=== PATIENT | female | born 1950 | race Caucasian/White ===

== ENCOUNTER → 2017-10-19 16:33 | Outpatient (CLI) | payer MEDICARE, OTHER, SELFPAY ==
[2017-10-19 18:16] LABS: Basophil# 0.04 X10^3/uL; Basophil% 0.6 % (0-1); Eosinophil# 0.89 X10^3/uL; Eosinophils% 12.9 % (0-5); Hematocrit 38.5 % (37-47); Hemoglobin 12.5 g/dl (12.0-15.0); Lymphocyte % 20.3 % (19-41); Mean Corp Hgb Conc 32.5 g/gl (32-36); Mean Corpuscular Volume 92.5 fL (81-99); Monocyte# 0.59 X10^3/uL; Monocyte% 8.6 % (0-10); Neutrophil # 3.96 X10^3/uL (2.7-7.7); Neutrophil % 57.5 % (47-70); POSITIVE COUNT NO; POSITIVE DIFFERENTIAL NO; POSITIVE MORPHOLOGY NO; Platelet Count 267 K/mm3 (150-450); RBC Distribution Width CV 12.5 % (11.6-14.6); RBC Distribution Width SD 41.3 fl (35.1-43.9); Red Blood Count 4.16 M/mm3 (4.2-5.4); White Blood Count 6.9 K/mm3 (4.4-11.0)
[2017-10-19 18:41] LABS: Anion Gap 6 (5-15); BUN 22 mg/dL (7-18); BUN/Creat Ratio 22.2 RATIO (10-20); Calcium,Total 9.2 mg/dL (8.5-10.1); Chloride 103 mmol/L (98-107); Creatinine, Serum 0.99 mg/dL (0.55-1.02); EST Glomerular Filtration Rate 59 mL/min (>60); Est Glom Filt Rate - Afr Amer 72 mL/min (>60); Glucose 122 mg/dL (74-106); Potassium 3.6 mmol/L (3.5-5.1); Sodium Level 140 mmol/L (136-145); T4 Free Direct 0.89 ng/dL (0.76-1.46); Thyroid Stim Hormone (TSH) 1.77 uIU/mL (0.358-3.74)
== END ==
PROVIDERS: Family Provider Family Medicine; PCP Family Medicine; Visit Provider Family Medicine
DX: R06.00 Dyspnea, unspecified (principal); R53.83 Other fatigue
CPT/HCPCS: 36415; 80048; 84439; 84443; 85025

== ENCOUNTER → 2017-11-13 09:08 | Outpatient (CLI) | payer MEDICARE, OTHER, SELFPAY | PROVIDERS: Family Provider Family Medicine; PCP Family Medicine; Visit Provider Family Medicine | DX: R06.00 Dyspnea, unspecified (principal); I10 Essential (primary) hypertension | CPT/HCPCS: 93306 ==

== ENCOUNTER → 2018-01-03 09:00 | Outpatient (CLI) | payer MEDICARE, OTHER, SELFPAY ==
[2018-01-08 04:12] LABS: Alternaria tenuis <0.10 kU/L (Class 0); Ash, White <0.10 kU/L (Class 0); Aspergillus fumigatus <0.10 kU/L (Class 0); Bermuda Grass 0.12 kU/L (Class 0/I); Birch 0.11 kU/L (Class 0/I); Black Walnut 0.11 kU/L (Class 0/I); Cat Hair / Dander,Stand <0.10 kU/L (Class 0); Cedar, Mountain <0.10 kU/L (Class 0); Cladosporium herbarum <0.10 kU/L (Class 0); Cockroach, American <0.10 kU/L (Class 0); Cottonwood <0.10 kU/L (Class 0); D farinae Mite <0.10 kU/L (Class 0); D pteronyssinus <0.10 kU/L (Class 0); Dog Epithelia <0.10 kU/L (Class 0); Elm, American White <0.10 kU/L (Class 0); Immunoglobulin E 25 IU/mL (0-100); Maple/Box Elder <0.10 kU/L (Class 0); Mulberry, White <0.10 kU/L (Class 0); Oak, White 0.14 kU/L (Class 0/I); Pecan <0.10 kU/L (Class 0); Penicillium Notatum <0.10 kU/L (Class 0); Pigweed, Rough <0.10 kU/L (Class 0); Ragweed, Short/Common 1.18 kU/L (Class II); Russian Thistle <0.10 kU/L (Class 0); Sheep Sorrel <0.10 kU/L (Class 0); Sycamore, American <0.10 kU/L (Class 0); Timothy Grass 0.99 kU/L (Class II)
[2018-01-08 10:07] LABS: Mouse Urine <0.10 kU/L (Class 0)
== END ==
PROVIDERS: Family Provider Family Medicine; PCP Family Medicine; Visit Provider Internal Medicine Critical Care Medicine
DX: J30.9 Allergic rhinitis, unspecified (principal); R06.2 Wheezing
CPT/HCPCS: 36415; 82785; 86003

== ENCOUNTER → 2018-02-05 08:06 | Outpatient (CLI) | payer MEDICARE, OTHER, SELFPAY ==
--- NOTE | 2018-02-05 12:28 | PFT ---
INTRODUCTION: The patient is a 67-year-old female currently under the care of myself the presents for pulmonary function testing secondary to a diagnosis of allergic rhinitis. Respiratory therapy reports good patient effort. Bronchodilators were used during testing. INTERPRETATION: Forced expiration spirometry demonstrates no evidence of a large airways obstructive ventilatory defect. There is no significant response to aerosolized bronchodilators. Spirograms are of good quality and plateau normally. Body plethysmography was performed and reveals lung volumes to be within normal limits. Diffusing capacity by single breath CO is within normal limits at 79% of predicted. IMPRESSION: Grossly normal pulmonary function testing.
== END ==
PROVIDERS: Family Provider Family Medicine; PCP Family Medicine; Visit Provider Internal Medicine Critical Care Medicine
DX: J30.9 Allergic rhinitis, unspecified (principal); R06.2 Wheezing
CPT/HCPCS: 94060; 94726; 94729

== ENCOUNTER → 2018-02-21 10:10 | Outpatient (CLI) | payer MEDICARE, OTHER, SELFPAY | PROVIDERS: Family Provider Family Medicine; PCP Family Medicine; Visit Provider Family Medicine | DX: N39.0 Urinary tract infection, site not specified (principal) | CPT/HCPCS: 87086; 87088 ==

== ENCOUNTER → 2018-03-06 08:32 | Outpatient (CLI) | payer MEDICARE, OTHER, SELFPAY ==
[2018-03-06 12:49] LABS: Absolute Lymphocyte Count 1.33 X10^3/ul (0.83-4.51); Absolute Neutrophil Count 3.2 X10^3/uL (2.0-7.7); Basophil# 0.03 X10^3/uL; Basophil% 0.6 % (0-1); Eosinophil# 0.29 X10^3/uL; Eosinophils% 5.4 % (0-5); Hematocrit 38.4 % (37-47); Hemoglobin 12.3 g/dl (12.0-15.0); Lymphocyte # 1.33 X10^3/ul (4.0); Lymphocyte % 24.7 % (19-41); Mean Corpuscular Hgb 29.6 pg (27.0-32.0); Mean Corpuscular Volume 92.3 fL (81-99); Mean Platelet Vol. 10.8 fl (6.2-12.0); Monocyte# 0.53 X10^3/uL; Monocyte% 9.9 % (0-10); Neutrophil # 3.19 X10^3/uL (2.7-7.7); Neutrophil % 59.2 % (47-70); Platelet Count 238 K/mm3 (150-450); RBC Distribution Width CV 13.3 % (11.6-14.6); RBC Distribution Width SD 44.3 fl (35.1-43.9); Red Blood Count 4.16 M/mm3 (4.2-5.4); White Blood Count 5.4 K/mm3 (4.4-11.0)
[2018-03-06 12:51] LABS: Hemoglobin A1c 6.1 % (4.2-6.3)
[2018-03-06 12:53] LABS: Vitamin D,25 Hydroxy 13.4 ng/mL (29.95-100.01)
[2018-03-06 13:00] LABS: POSITIVE COUNT NO; POSITIVE DIFFERENTIAL NO; POSITIVE MORPHOLOGY NO
[2018-03-06 13:06] LABS: AST(SGOT) 28 U/L (15-37); Alanine Aminotransfer ALT/SGPT 44 U/L (13-56); Albumin, Serum 3.7 g/dL (3.2-5.0); Alkaline Phosphatase 100 U/L (45-117); Anion Gap 9 (5-15); BUN 22 mg/dL (7-18); BUN/Creat Ratio 22.9 RATIO (10-20); Calcium,Total 8.8 mg/dL (8.5-10.1); Chloride 108 mmol/L (98-107); Creatinine, Serum 0.96 mg/dL (0.55-1.02); EST Glomerular Filtration Rate 61 mL/min (>60); Est Glom Filt Rate - Afr Amer 74 mL/min (>60); Globulin 3.6 g/dL (2.2-4.2); Glucose 113 mg/dL (74-106); Potassium 3.9 mmol/L (3.5-5.1); Protein, Total 7.3 g/dL (6.4-8.2); Sodium Level 144 mmol/L (136-145); T4 Free Direct 0.95 ng/dL (0.76-1.46); Thyroid Stim Hormone (TSH) 2.05 uIU/mL (0.358-3.74)
== END ==
PROVIDERS: Family Provider Family Medicine; PCP Family Medicine; Visit Provider Family Medicine
DX: R73.01 Impaired fasting glucose (principal); E55.9 Vitamin D deficiency, unspecified; E04.2 Nontoxic multinodular goiter; I10 Essential (primary) hypertension
CPT/HCPCS: 36415; 80053; 82306; 83036; 84439; 84443; 85025

== ENCOUNTER → 2018-03-11 09:38 | Outpatient (CLI) | payer MEDICARE, OTHER, SELFPAY ==
--- NOTE | 2018-03-11 09:43 | US_ITS ---
STUDY: THYROID ULTRASOUND REASON FOR EXAM: Female, 67 years old. Nodules. TECHNIQUE: Ultrasound evaluation of the thyroid was performed with real-time and static almaraz-scale imaging. COMPARISON: August 01, 2016 FINDINGS: RIGHT LOBE: The right lobe of the thyroid gland measures 4.4 x 1.4 x 1.9 cm. There is a heterogeneous echotexture. There is a well-circumscribed hypoechoic nodule within the right lobe of the gland that allowing for differences in technique the prior examination has not significantly changed measuring 6.0 x 4.7 x 5.5 mm. LEFT LOBE: The left lobe of the thyroid gland measures 4.1 x 1.6 x 1.4 cm. There is a heterogeneous echotexture. There is a hypoechoic slightly ill-defined nodule that allowing for differences in technique since the prior examination has not significantly changed measuring 5.8 x 5.0 x 3.2 mm, this nodule was not measured on the prior examination but it is apparent on the prior study. ISTHMUS: The isthmus measures 4.0 mm . The regional lymph nodes are normal. US/Thyroid IMPRESSION: Stable heterogenous and enlarged thyroid gland associated with stable bilateral nodules. Electronically Signed: Lianne Rosales MD at 17:26 EDT Tel , Service support ,
== END ==
PROVIDERS: Family Provider Family Medicine; PCP Family Medicine; Visit Provider Family Medicine
DX: E04.2 Nontoxic multinodular goiter (principal)
CPT/HCPCS: 76536

== ENCOUNTER → 2018-07-01 15:30 | Outpatient (CLI) | payer MEDICARE, OTHER, SELFPAY ==
--- NOTE | 2018-07-01 15:32 | BI_ITS ---
MAMMOGRAPHY - BILATERAL SCREENING REASON FOR EXAM: Female, 67 years old. Routine annual screening examination. PERTINENT HISTORY: Non-contributory. TECHNIQUE: Digital bilateral breast artem (3D mammographic acquisition) in the CC and MLO projections. 2-D mediolateral oblique (MLO) and craniocaudad (CC) views of both breasts were obtained. CAD: Full Field Digital Mammography with Computer Added Detection was performed. COMPARISON: Comparison is made with prior outside examination dated September 14, 2016. FINDINGS: Breast Composition: There are scattered areas of fibroglandular density. There are no dominant masses or suspicious calcifications. No other significant abnormalities are identified. There has been no significant change since the prior study. BI/SCREENING MAMM (CAD), BILAT IMPRESSION: Stable bilateral screening mammogram. Yearly follow-up mammogram recommended. (A) ASSESSMENT CATEGORY: BIRADS Category 1: Negative. A letter regarding these results will be sent to the patient by the facility within 30 days. Approximately 10% of breast cancers are not detected by mammography. A normal mammogram should not delay biopsy of a clinically suspicious abnormality. [id number] Electronically Signed: Boogie Pascual MD at 9:19 EST Tel [phone], Service support ,
[2018-07-01 17:38] LABS: Vitamin D,25 Hydroxy 31.8 ng/mL (29.95-100.01)
== END ==
PROVIDERS: Family Provider Family Medicine; PCP Family Medicine; Referring Provider Nurse Practitioner Women's Health; Visit Provider Nurse Practitioner Women's Health
DX: Z12.31 Encounter for screening mammogram for malignant neoplasm of breast (principal); E55.9 Vitamin D deficiency, unspecified
CPT/HCPCS: 36415; 77063; 77067; 82306

== ENCOUNTER → 2018-08-30 13:36 | Outpatient (CLI) | payer MEDICARE, OTHER, SELFPAY ==
[2018-08-30 09:00] VITALS: BMI 32.6
== END ==
PROVIDERS: Family Provider Family Medicine; PCP Family Medicine; Referring Provider Obstetrics & Gynecology; Visit Provider Obstetrics & Gynecology
DX: N39.0 Urinary tract infection, site not specified (principal)
CPT/HCPCS: 87086; 87088; 87186

== ENCOUNTER → 2019-03-07 09:35 | Outpatient (CLI) | payer MEDICARE, OTHER, SELFPAY ==
[2018-08-30 09:00] VITALS: BMI 32.6
[2019-03-07 12:17] LABS: Absolute Lymphocyte Count 1.38 X10^3/uL (0.83-4.51); Absolute Neutrophil Count 3.6 X10^3/uL (2.0-7.7); Basophil# 0.04 X10^3/uL; Basophil% 0.7 % (0-1); Eosinophil# 0.28 X10^3/uL; Eosinophils% 4.8 % (0-5); Hematocrit 39.5 % (37-47); Hemoglobin 12.6 g/dL (12.0-15.0); Lymphocyte # 1.38 X10^3/ul (4.0); Lymphocyte % 23.8 % (19-41); Mean Corp Hgb Conc 31.9 g/dL (32-36); Mean Corpuscular Hgb 29.7 pg (27.0-32.0); Mean Corpuscular Volume 93.2 fL (81-99); Mean Platelet Vol. 10.6 fl (6.2-12.0); Monocyte# 0.53 X10^3/uL; Monocyte% 9.1 % (0-10); NRBC Flagged by Analyzer 0 % (0-5); Neutrophil # 3.55 X10^3/uL (2.7-7.7); Neutrophil % 61.3 % (47-70); Platelet Count 245 K/mm3 (150-450); RBC Distribution Width CV 12.8 % (11.6-14.6); RBC Distribution Width SD 43.8 fl (35.1-43.9); Red Blood Count 4.24 M/mm3 (4.2-5.4); White Blood Count 5.8 K/mm3 (4.4-11.0)
[2019-03-07 12:40] LABS: Vitamin D,25 Hydroxy 18.4 ng/mL (29.95-100.01)
[2019-03-07 12:45] LABS: AST(SGOT) 20 U/L (15-37); Alanine Aminotransfer ALT/SGPT 40 U/L (13-56); Albumin, Serum 3.7 g/dL (3.2-5.0); Alkaline Phosphatase 108 U/L (45-117); Anion Gap 4 (5-15); BUN 18 mg/dL (7-18); BUN/Creat Ratio 18.7 RATIO (10-20); Calcium,Total 9.1 mg/dL (8.5-10.1); Chloride 108 mmol/L (98-107); Creatinine, Serum 0.96 mg/dL (0.55-1.02); EST Glomerular Filtration Rate 61 mL/min (>60); Est Glom Filt Rate - Afr Amer 74 mL/min (>60); Globulin 3.8 g/dL (2.2-4.2); Glucose 111 mg/dL (74-106); Potassium 4.3 mmol/L (3.5-5.1); Protein, Total 7.5 g/dL (6.4-8.2); Sodium Level 138 mmol/L (136-145); Thyroid Stim Hormone (TSH) 2.13 uIU/mL (0.358-3.74)
== END ==
PROVIDERS: Family Provider Family Medicine; PCP Family Medicine; Visit Provider Family Medicine
DX: E04.2 Nontoxic multinodular goiter (principal); I10 Essential (primary) hypertension; E55.9 Vitamin D deficiency, unspecified
CPT/HCPCS: 36415; 80053; 82306; 84443; 85025

== ENCOUNTER → 2019-04-23 09:01 | Outpatient (CLI) | payer MEDICARE, OTHER, SELFPAY ==
[2018-08-30 09:00] VITALS: BMI 32.6
--- NOTE | 2019-04-23 09:03 | US_ITS ---
STUDY: THYROID ULTRASOUND REASON FOR EXAM: Female, 68 years old. Nodules. TECHNIQUE: Ultrasound evaluation of the thyroid was performed with real-time and static almaraz-scale imaging. COMPARISON: Thyroid ultrasound, February 09, 2018. FINDINGS: RIGHT LOBE: The right lobe of the thyroid gland measures 4.7 x 1.8 x 1.6 cm. There is a heterogeneous echotexture. There is a 0.6 x 0.5 x 0.4 cm hypoechoic nodule in the lower pole which is well-defined and wider than it is tall posteriorly in the lower lobe there is a 0.5 x 0.4 x 0.4 cm nodule which is anechoic. LEFT LOBE: The left lobe of the thyroid gland measures 4.3 x 1.4 x 1.4 cm. There is a heterogeneous echotexture. 0.8 x 0.6 x 0.4 cm well-defined hypoechoic nodule in the upper pole which is wider than it is tall. There is a 0.8 x 0.7 x 0.6 cm hypoechoic nodule posteriorly in the lower pole again wider than it is tall. ISTHMUS: The isthmus measures 0.4 cm. The regional lymph nodes are normal. US/Thyroid IMPRESSION: 1. Enlarged heterogenous thyroid. 2. Right nodules which appear stable in size. These appear to be more hypoechoic than on the previous study. 3. Slight increase in size of the upper to mid lower nodule when compared to prior study although this appears better defined. A second nodule more posteriorly was not previously seen but may represent a parathyroid gland. Electronically Signed: Collin Wheeler DO at 16:55 EDT Tel [phone], Service support ,
== END ==
PROVIDERS: Family Provider Family Medicine; PCP Family Medicine; Referring Provider Family Medicine; Visit Provider Family Medicine
DX: E04.2 Nontoxic multinodular goiter (principal)
CPT/HCPCS: 76536

== ENCOUNTER → 2019-08-11 13:40 | Outpatient (CLI) | payer MEDICARE, OTHER, SELFPAY ==
[2018-08-30 09:00] VITALS: BMI 32.6
--- NOTE | 2019-08-11 13:40 | BI_ITS ---
MAMMOGRAPHY - BILATERAL SCREENING 3-D TOMOSYNTHESIS REASON FOR EXAM: Female, 68 years old. NO FAM HX NO SX NO ISSUES -- LT MOLE MARKED PERTINENT HISTORY: No significant family history. TECHNIQUE: 2-D mammograms and 3-D Tomosynthesis of the breast (s) were performed. CAD was performed. COMPARISON: 07/01/2018 FINDINGS: The breast composition is composed of scattered fibroglandular density. Scattered benign calcifications are seen. No dense spiculated masses or suspicious microcalcifications are identified. No architectural distortion is identified. There is no skin thickening or retraction. There has been no significant change since the prior study. BI/SCREEN MAMM (CAD) W/MYLES BILAT IMPRESSION: No mammographic signs of malignancy. Routine yearly mammograms recommended. ASSESSMENT CATEGORY: BIRADS Category 1: Negative. A letter regarding these results will be sent to the patient by the facility within 30 days. FOLLOW UP RECOMMENDATION: Yearly follow up mammogram recommended. (A) Approximately 10% of breast cancers are not detected by mammography. A normal mammogram should not delay biopsy of a clinically suspicious abnormality. Electronically Signed: Chele Barron MD at 13:24 EST Tel [phone], Service support ,
== END ==
PROVIDERS: Family Provider Family Medicine; PCP Family Medicine; Referring Provider Nurse Practitioner Women's Health; Visit Provider Nurse Practitioner Women's Health
DX: Z12.31 Encounter for screening mammogram for malignant neoplasm of breast (principal)
CPT/HCPCS: 77063; 77067

== ENCOUNTER → 2020-02-03 15:55 | Outpatient (CLI) | payer MEDICARE, OTHER, SELFPAY ==
[2019-12-17 08:37] VITALS: BMI 32.2
--- NOTE | 2020-02-03 16:00 | BD_ITS ---
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 COMPARISON: Comparison is made with prior examination of May 31, 2017. FINDINGS: Lumbar Spine (L1-L4): g/cm2 (1.180) / T-score (0.1) / Z-score (1.8) Findings are suggestive of normal bone density with a low fracture risk. Left Femur Total: g/cm2 (0.855) / T-score (-1.2) / Z-score (0.3) Left Femoral Neck: g/cm2 (0.825) / T-score (-1.5) / Z-score (0.2) Right Femur Total: g/cm2 (0.897) / T-score (-0.9) / Z-score (0.6) Right Femoral Neck: g/cm2 (0.841) / T-score (-1.4) / Z-score (0.3) The T-Scores on the most recent prior examination were: Lumbar Spine (L1-L4): There has been worsening of bone density since the previous examination. Left Femur Total: which represents an improvement of 0.4%. Right Femur Total: which represents a worsening of 1%. BD/Dexa Bone Density Study IMPRESSION: The patient is considered osteopenic as outlined below according to World Miky Organization (WHO) criteria with a low fracture risk. There has been worsening of bone density since the previous examination. Reference Information: The T-score is the number of standard deviations above or below the standard which is normal for young adults at their peak bone mineral density. The World Health Organization (WHO) interprets the T-scores as follows: Above -1 Normal bone density Between -1 and -2.5 Osteopenia Equal to / or below -2.5 Osteoporosis As a practical clinical guideline, osteopenia may be graded as follows: Mild -1 through -1.5 Moderate -1.6 through -2.0 Severe -2.1 through -2.4 The Z-score is the number of standard deviations above or below age-matched controls. A Z-score of less than -1.5 would be considered abnormal. References: 1. NIH Osteoporosis and Related Bone Diseases http://www.osteo.org 2. International Society for Clinical Densitometry http://www.iscd.org 3. National Osteoporosis Foundation http://www.nof.org Electronically Signed: Boogie Pascual, at 8:56 EDT , Service support ,
== END ==
PROVIDERS: PCP Family Medicine; Referring Provider Nurse Practitioner Women's Health; Visit Provider Nurse Practitioner Women's Health
DX: Z78.0 Asymptomatic menopausal state (principal)
CPT/HCPCS: 77080

== ENCOUNTER → 2020-03-08 09:26 | Outpatient (CLI) | payer MEDICARE, OTHER, SELFPAY ==
[2019-12-17 08:37] VITALS: BMI 32.2
[2020-03-08 12:06] LABS: Absolute Lymphocyte Count 1.47 X10^3/uL (0.83-4.51); Absolute Neutrophil Count 3.9 X10^3/uL (2.0-7.7); Basophil# 0.06 X10^3/uL; Eosinophil# 0.29 X10^3/uL; Eosinophils% 4.6 % (0-5); Hematocrit 39.9 % (37-47); Hemoglobin 13.2 g/dL (12.0-15.0); Lymphocyte # 1.47 X10^3/ul (4.0); Lymphocyte % 23.6 % (19-41); Mean Corp Hgb Conc 33.1 g/dL (32-36); Mean Corpuscular Hgb 30.8 pg (27.0-32.0); Mean Corpuscular Volume 93.2 fL (81-99); Mean Platelet Vol. 10.5 fl (6.2-12.0); Monocyte# 0.53 X10^3/uL; Monocyte% 8.5 % (0-10); NRBC Flagged by Analyzer 0 % (0-5); Neutrophil # 3.88 X10^3/uL (2.7-7.7); Neutrophil % 62.1 % (47-70); Platelet Count 257 K/mm3 (150-450); RBC Distribution Width SD 43.9 fl (35.1-43.9); Red Blood Count 4.28 M/mm3 (4.2-5.4); White Blood Count 6.2 K/mm3 (4.4-11.0)
[2020-03-08 12:28] LABS: Anion Gap 5 (5-15); BUN 15 mg/dL (7-18); BUN/Creat Ratio 15.2 RATIO (10-20); Calcium,Total 9.7 mg/dL (8.5-10.1); Chloride 105 mmol/L (98-107); Creatinine, Serum 0.99 mg/dL (0.55-1.02); EST Glomerular Filtration Rate 59 mL/min (>60); Est Glom Filt Rate - Afr Amer 71 mL/min (>60); Glucose 120 mg/dL (74-106); Potassium 4.2 mmol/L (3.5-5.1); Sodium Level 138 mmol/L (136-145); Thyroid Stim Hormone (TSH) 2.45 uIU/mL (0.358-3.74)
[2020-03-09 07:26] LABS: SARS-COV-2 TOTAL ABS Nonreactive (Nonreactive)
[2020-03-10 13:47] LABS: Vitamin D,25 Hydroxy 41.1 ng/mL
== END ==
PROVIDERS: PCP Family Medicine; Visit Provider Family Medicine
DX: I10 Essential (primary) hypertension (principal); E55.9 Vitamin D deficiency, unspecified; E04.2 Nontoxic multinodular goiter; Z20.828 Contact with and (suspected) exposure to other viral communicable diseases
CPT/HCPCS: 80048; 82306; 84443; 85025; 86769; G2023

== ENCOUNTER → 2020-09-13 09:01 | Outpatient (CLI) | payer MEDICARE, SELFPAY ==
[2020-06-16 09:03] VITALS: BMI 33.8
--- NOTE | 2020-09-13 09:03 | US_ITS ---
STUDY: THYROID ULTRASOUND REASON FOR EXAM: Female, 70 years old. NODULES TECHNIQUE: Ultrasound evaluation of the thyroid was performed with real-time and static almaraz-scale imaging. COMPARISON: Comparison is made with prior study to 04/23/2019. FINDINGS: RIGHT LOBE: The right lobe of the thyroid gland measures 4.4 cm x 1.4 cm x 2.4 cm. There is a heterogeneous echotexture. There is a 6 mm x 5 mm x 5 mm hypoechoic solid nodule in the lower pole. There is also evidence of a 5 mm x 5 mm x 4 mm hypoechoic nodule in the midpole. These are unchanged. LEFT LOBE: The left lobe of the thyroid gland measures 4.6 cm x 1.4 cm x 1.8 cm. There is a heterogeneous echotexture. There is a 7 mm x 6 mm x 4 mm well-defined hypoechoic nodule in the midpole. This is unchanged. The second nodule seen on prior sonogram is not seen at this time ISTHMUS: The isthmus measures 4 mm. The regional lymph nodes are normal. US/Thyroid IMPRESSION: Stable nodules in the right lobe. Stable 7 mm x 6 mm x 4 mm hypoechoic solid nodule in the midpole of the left lobe of the thyroid. Electronically Signed: Boogie Pascual MD at 14:37 EST , Service support ,
== END ==
LOC: US 09:03
PROVIDERS: PCP Family Medicine; Referring Provider Family Medicine; Visit Provider Family Medicine
DX: E04.2 Nontoxic multinodular goiter (principal)
CPT/HCPCS: 76536

== ENCOUNTER → 2021-08-10 12:12 | Outpatient (CLI) | payer MEDICARE, SELFPAY ==
--- NOTE | 2021-08-10 12:13 | BI_ITS ---
MAMMOGRAPHY - BILATERAL SCREENING REASON FOR EXAM: Female, 70 years old. Routine annual screening examination. PERTINENT HISTORY: Sister with breast cancer. TECHNIQUE: Digital bilateral breast myles (3D mammographic acquisition) in the CC and MLO projections. 2-D mediolateral oblique (MLO) and craniocaudad (CC) views of both breasts were obtained. CAD: Full Field Digital Mammography with Computer Added Detection was performed. COMPARISON: Comparison is made with prior study dated 05/12/2019 and 07/01/2018. FINDINGS: Breast Composition: There are scattered areas of fibroglandular density. There are no dominant masses or suspicious calcifications. No other significant abnormalities are identified. There has been no significant change since the prior study. BI/SCRN MAMM (CAD)W/MYLES BILAT IMPRESSION: Stable bilateral screening mammogram. Yearly follow-up mammogram recommended. (A) ASSESSMENT CATEGORY: BIRADS Category 1: Negative. A letter regarding these results will be sent to the patient by the facility within 30 days. Approximately 10% of breast cancers are not detected by mammography. A normal mammogram should not delay biopsy of a clinically suspicious abnormality. [id number] Electronically Signed: Boogie Pascual MD at 13:10 EST , Service support ,
== END ==
PROVIDERS: PCP Family Medicine; Visit Provider Nurse Practitioner Women's Health
DX: Z12.31 Encounter for screening mammogram for malignant neoplasm of breast (principal)
CPT/HCPCS: 77063; 77067

== ENCOUNTER → 2022-01-09 | Outpatient (CLI) | payer MEDICARE, SELFPAY ==
[2022-01-09 15:51] LABS: Anion Gap 5 (5-15); BUN 19 mg/dL (7-18); BUN/Creat Ratio 17.8 RATIO (10-20); Calcium,Total 9.9 mg/dL (8.5-10.1); Chloride 104 mmol/L (98-107); Creatinine, Serum 1.07 mg/dL (0.55-1.02); EST Glomerular Filtration Rate 54 mL/min (>60); Est Glom Filt Rate - Afr Amer 65 mL/min (>60); Glucose 113 mg/dL (74-106); Magnesium 2.3 mg/dL (1.6-2.6); Potassium 4.4 mmol/L (3.5-5.1); Sodium Level 139 mmol/L (136-145)
== END | disposition home or self-care (01) ==
LOC: MTLAB 14:03
PROVIDERS: PCP Family Medicine; Referring Provider Family Medicine; Visit Provider Family Medicine
DX: R25.2 Cramp and spasm (principal)
CPT/HCPCS: 36415; 80048; 83735

== ENCOUNTER 2022-10-05 14:00 | Outpatient (RCR) | payer MEDICARE, SELFPAY ==
--- NOTE | 2022-09-07 08:05 | HP.OTEVAL ---
Patient's Visit Information FELIPE BASURTO is a 72 year old F, referred to Occupational Therapy by Dr. Kaleb Astorga MD, with a diagnosis of CVA. Date of Evaluation: 09/06/22 Occupational Therapist: RASHID Shelton/Melanie, CHT - Subjective This 72 year old female seen for OT eval with dx of CVA, pt states was her stroke. pt [facility] pt than had 2 weeks of home therapy. pt states she continues to struggle with use of left UE. 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 pt has assist with ADLs. ambulating with quad cane when out and about but at home no device. pt using shower chair at home. pt would like return use of her left hand to increase ind. with ADLs and IADLs. - ADLs Dressing: Button shirt Fasteners: Buttons, Zippers, Snaps, [place] Eating: Cut food Bathing: Handle washcloth & soap, Wash hair Toileting: Manage clothing Grooming: Squeeze toothpaste on Kitchen: Open jars Miscellaneous: Open medication bottle, Handle money (change), Use computer keyboard Comments: pt lives with - dtr and two grandchildren. Pt stays on main living area. two entry steps. pt has resting hand brace for night but pt states it is heavy and makes her hand painful - ROM Shoulder: right WNL left Elbow: right WNL left -10/130 Forearm: right WNL left supination 55 pronation WNL Wrist: right WNL left 0/50 ROM Comments: pt demo minimal wrist ext due to tightness of FCU. pt demo initiation of finger flexion. - Strength Shoulder: right 5/5 left 3/5 Elbow: right 5/5 left 3/5 Forearm: right 5/5 left 3-/5 Wrist: right 5/5 left 3-/5 Regional Facilities Specialist: right 55# left unable Lateral Pinch: right 4# left unable Tripod Pinch: right 10# left unable - Sensation Sensation Comments: denies. tip of thumb a little numb - Movement Muscle Tone: left forearm/wrist mod tone Movement Comments: pt demo with flexed wrist posture with ambulation - In-Hand Manipulation Finger to Palm Translation: Normal - Right, Unable - Left Palm to Finger Translation: Normal - Right, Unable - Left - Stroke Specific Quality of Life Total SS-QOL Score: 125 - Quick DASH-Disab of Arm,Shoulder& Hand Quick DASH Score: 66.6650 - Goals Goal:: Pt will demo a increase in left UE strength to lift 10# Items from knee, waist and shoulder levels to simulate kitchen tasks by d/c. 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 with ADLs by d.c. pt will demo full wrist and digits ROM equal to unaffected side to increase pts ind. with typing by d/c Goal:: pt will demo a increase in FMS demo by ability to type two sentences with no more than 2 errors by in 8 weeks. Goal:: pt will report the ability to tie shoes, zip coat IND using bilateral hands to perform tasks by d/c - Rehabilitation General Assessment: pt demo with left UE weakness and limited ROM and increase abnormal flexion tone limiting pts ind with ADLS and IADLs. pt would benefit from skilled OT services 1-2x week for 8 weeks to increase pts recovery. Today therapist review a AAROM for left UE as well AROM. Rehabilitation Potential: Good - Anticipated Interventions A/AAROM/PROM, Strengthening, Orthoses, Ergonomic Education, Fine Motor Coord/Vadim, Neuro Reeducation, Education re assistive Equipment, Education re Diagnosis, Caregiver Training, Home Program - Visit Plan Frequency: 1-2x /Week Duration: 2 Months TEXT: Thank you for the opportunity to evaluate your patient. For Medicare and Medicare HMO plans, please review the plan of care and approve it. It will need to be FAXED BACK to us at [phone] for Medicare purposes. Please let me know if there are questions or concerns regarding this plan of care. Physician Signature: Date:
--- NOTE | 2022-10-05 17:56 | HP.PTEVAL ---
Patient's Visit Information FELIPE BASURTO is a 72 year old F referred to Physical Therapy by Dr. Kaleb Astorga MD with a diagnosis of LEFT SHOULDER PAIN ,CVA INTERCRANIABLE HEMMORAGE. 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 PT INTERVTIONS PROM/AAROM/AROM ,GRADED STRENGTHENING RTC /SCAPULAR , AND MANUAL THERAPY GR 2-3 MOBS - Subjective This 72 y/o female physical therapy with left shoulder pain and CVA . Patient patient had CVA 2021 woke up middle night developed left side weakness /balance and fascial drop . Patient [facility] transferred to [facility]. Patient had MRI and CTSCAN intracerebral hemorrhage. Patient had elevated HTN. Patient was hospitalized ~ 2weeks then transferred to [facility] 25 days . Then had [facility] PT/OT. Patient has been in OT for hand and elbow. 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 Patient uses [email or web address] for long distance community and inside no cane. Patient is I with ADLS doing some cooking daughter does housework and cleaning. Patient denies paresthesia/tingling. Patient pain affects ADLS with left UE and self hygiene. Patient symptoms affects sleeping. Patient goals to improve function with less pain. SOCAIL: . 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 . - Pain Left Shoulder Pain Intensity (Out of 10): 5 Pain Intensity Range: 10 - Objective POSTURE: rounded shoulders. NEURO: hypertonicity left C5-6-7 1. PALPATION: tender AC. AROM: shoulder flexion 95 degrees ,80 degrees. PROM: shoulder flexion 130 degrees ,abduction 135 degrees ,ER 50 degrees. CAPSULAR RESTRICTION: mod tight G-H joint. SCAPULAR/HUMERAL FUNCTION: less than 1:1. MMT: ( peak force) deltoid 8.5,infraspinatous 8.9 ,subscapularis 9.5 - Special Tests L Shoulder Neer - Impingement: Positive L Shoulder [address] - Impingement: Positive L Shoulder Shrug Sign - OA/Adhesive Capsulitis: Positive - Balance/Special Test Scores Quick DASH Score: 45.4525 - Goals Goal 1:: Patient to be seen for PT for ROM and strengthening Goal Time Frame: 4-6 Weeks Goal 2:: Patient to demonstrate 50% improvement with increase function and decrease pain. Goal Time Frame: 4-6 Weeks Goal 3:: Patient to improve AROM shoulder flexion ,abduction and ER by 10 degrees to improve function Goal Time Frame: 4-6 Weeks Goal 4:: Patient to improve peak force deltoid /RTC by deltoid 5 points to improve function Goal Time Frame: 4-6 Weeks Goal 5:: Patient to improve quick dash 5 points to improve improve function Goal Time Frame: 4-6 Weeks - Rehabilitation Potential Physical Therapy Diagnosis: Patient has left shoulder pain with capsular mod tightness with decrease ROM ,strength from hemiplegia shoulder with increase tonicity thus benefit from skilled PT Rehabilitation Potential: Good - Anticipated Interventions Patient/Client Instruction: Educate patient on: Condition, Plan of Care For the Purpose of:: To decrease pain, To increase ROM, To improve muscle performance and motor function, To improve ability to perform ADL's, To increase tolerance to activity/condition/position, To improve performance and independence with ADL's, To improve ability of physical actions for home/community/work/leisure, To improve health of tissue, To decrease soft tissue restriction, To increase flexibility/ROM Therapeutic Exercise to Include: Strength training, Body mechanics, Postural training, Flexibilty training, Passive ROM, Active ROM For the Purpose of:: To decrease pain, To increase ROM, To improve nutrient delivery to tissue, To increase oxygenation perfusion, To improve health of tissue, To increase flexibility/ROM, To improve endurance, To improve tolerance to ADL's Manual Therapy Techniques to Include: Mobilization, Passive ROM Comment: G-H For the Purpose of:: To decrease pain, To increase ROM, To improve nutrient delivery to tissue, To increase oxygenation perfusion, To improve health of tissue, To decrease soft tissue restriction TENS: Yes IF ES: Yes Cryotherapy (ice pack, ice massage): Yes Thermo therapy (hot pack): Yes Ultrasound (thermal/non thermal): Yes For the Purpose of:: To decrease pain, To increase ROM, To improve nutrient delivery to tissue, To increase oxygenation perfusion, To improve health of tissue, To decrease soft tissue restriction Thank you for the opportunity to evaluate your patient. For Medicare and Medicare HMO plans, please review the plan of care and approve it. It will need to be FAXED BACK to us at [phone] for Medicare purposes. For Medicare only, by signing this I certify the plan of care. Please let me know if there are questions or concerns regarding this plan of care. Physician Signature: Date:
--- NOTE | 2022-12-28 10:48 | HP.PTDCNRP_ITS ---
FELIPE BASURTO was seen in my office for initial evaluation on 10/05/22. The following Plan of Care was established for this patient: Initial Frequency: 2x /Week Initial Duration: 4 Weeks Patient/Client Instruction: Educate patient on: Condition, Plan of Care For the Purpose of:: To decrease pain, To increase ROM, To improve muscle performance and motor function, To improve ability to perform ADL's, To increase tolerance to activity/condition/position, To improve performance and independence with ADL's, To improve ability of physical actions for home/community/work/leisure, To improve health of tissue, To decrease soft tissue restriction, To increase flexibility/ROM Therapeutic Exercise to Include: Strength training, Body mechanics, Postural training, Flexibilty training, Passive ROM, Active ROM For the Purpose of:: To decrease pain, To increase ROM, To improve nutrient delivery to tissue, To increase oxygenation perfusion, To improve health of tissue, To increase flexibility/ROM, To improve endurance, To improve tolerance to ADL's Manual Therapy Techniques to Include: Mobilization, Passive ROM Comment: G-H For the Purpose of:: To decrease pain, To increase ROM, To improve nutrient delivery to tissue, To increase oxygenation perfusion, To improve health of tissue, To decrease soft tissue restriction TENS: Yes IF ES: Yes Cryotherapy (ice pack, ice massage): Yes Thermo therapy (hot pack): Yes Ultrasound (thermal/non thermal): Yes For the Purpose of:: To decrease pain, To increase ROM, To improve nutrient delivery to tissue, To increase oxygenation perfusion, To improve health of ti ssue, To decrease soft tissue restriction This patient was last seen in our office . Pertinent comments regarding their Physical therapy will appear below: Patient seen for PT for Evaluation thus is d/c At this point I will be discontinuing this patient from physical therapy. I would be happy to see this patient again in the future if found appropriate by the physician. Thank you! Bryan Fletcher, PT, Cert MDT, OCS Balance/Gait/Functional tests - Balance/Special Test Scores Quick DASH Score: 45.4553
== END 2022-10-05 19:00 | disposition home or self-care (01) ==
LOC: PT 14:00
PROVIDERS: PCP Family Medicine; Referring Provider Family Medicine; Visit Provider Family Medicine
DX: I61.9 Nontraumatic intracerebral hemorrhage, unspecified (principal)
CPT/HCPCS: 97110; 97112; 97140; 97162; 97166; 97530

== ENCOUNTER → 2022-10-09 | Outpatient (CLI) | payer MEDICARE, SELFPAY ==
[2022-10-09 12:29] LABS: Absolute Lymphocyte Count 1.68 X10^3/uL (0.83-4.51); Absolute Neutrophil Count 3.8 X10^3/uL (2.0-7.7); Basophil# 0.06 X10^3/uL; Basophil% 0.9 % (0-1); Eosinophil# 0.26 X10^3/uL; Eosinophils% 4.1 % (0-5); Hematocrit 41.1 % (37-47); Lymphocyte # 1.68 X10^3/ul (0.83-4.51); Lymphocyte % 26.6 % (19-41); Mean Corp Hgb Conc 31.6 g/dL (32-36); Mean Corpuscular Volume 94.9 fL (81-99); Mean Platelet Vol. 10.8 fl (6.2-12.0); Monocyte# 0.53 X10^3/uL; Monocyte% 8.4 % (0-10); NRBC Flagged by Analyzer 0 % (0-5); Neutrophil # 3.78 X10^3/uL (2.7-7.7); Neutrophil % 59.8 % (47-70); Platelet Count 289 K/mm3 (150-450); RBC Distribution Width CV 12.6 % (11.6-14.6); RBC Distribution Width SD 44.5 fl (35.1-43.9); Red Blood Count 4.33 M/mm3 (4.2-5.4); White Blood Count 6.3 K/mm3 (4.4-11.0)
[2022-10-09 12:45] LABS: Vitamin D,25 Hydroxy 62.3 ng/mL
[2022-10-09 12:46] LABS: Hemoglobin A1c 6.3 % (3.8-5.6)
[2022-10-09 12:52] LABS: AST(SGOT) 64 U/L (15-37); Alanine Aminotransfer ALT/SGPT 109 U/L (13-56); Albumin, Serum 3.8 g/dL (3.2-5.0); Alkaline Phosphatase 231 U/L (45-117); Anion Gap 6 (5-15); BUN 15 mg/dL (7-18); BUN/Creat Ratio 17.5 RATIO (10-20); Calcium,Total 10.2 mg/dL (8.5-10.1); Chloride 102 mmol/L (98-107); Cholesterol 116 mg/dL (200); Creatinine, Serum 0.86 mg/dL (0.55-1.02); EST Glomerular Filtration Rate 69 mL/min (>60); Est Glom Filt Rate - Afr Amer 84 mL/min (>60); Globulin 3.9 g/dL (2.2-4.2); Glucose 123 mg/dL (74-106); High Density Lipoprotein 56 mg/dL; Potassium 4.7 mmol/L (3.5-5.1); Protein, Total 7.7 g/dL (6.4-8.2); Sodium Level 139 mmol/L (136-145); Triglycerides 85 mg/dL; Very Low Density Lipoprotein 17 mg/dL (5-40)
== END | disposition home or self-care (01) ==
LOC: BIMLAB 10:00
PROVIDERS: PCP Internal Medicine; Referring Provider Internal Medicine; Visit Provider Internal Medicine
DX: I63.81 Other cerebral infarction due to occlusion or stenosis of small artery (principal); R73.03 Prediabetes; E55.9 Vitamin D deficiency, unspecified
CPT/HCPCS: 36415; 80053; 80061; 82306; 83036; 85025

== ENCOUNTER → 2022-10-25 | Outpatient (CLI) | payer MEDICARE, SELFPAY ==
[2022-10-25 17:30] LABS: AST(SGOT) 34 U/L (15-37); Alanine Aminotransfer ALT/SGPT 50 U/L (13-56); Albumin, Serum 3.8 g/dL (3.2-5.0); Alkaline Phosphatase 169 U/L (45-117); Anion Gap 5 (5-15); BUN 19 mg/dL (7-18); Calcium,Total 9.8 mg/dL (8.5-10.1); Chloride 104 mmol/L (98-107); Creatinine, Serum 0.86 mg/dL (0.55-1.02); EST Glomerular Filtration Rate 69 mL/min (>60); Est Glom Filt Rate - Afr Amer 83 mL/min (>60); Globulin 3.7 g/dL (2.2-4.2); Glucose 105 mg/dL (74-106); Potassium 3.8 mmol/L (3.5-5.1); Protein, Total 7.5 g/dL (6.4-8.2); Sodium Level 139 mmol/L (136-145)
== END | disposition home or self-care (01) ==
LOC: LAB 15:55
PROVIDERS: PCP Internal Medicine; Visit Provider Internal Medicine
DX: R74.8 Abnormal levels of other serum enzymes (principal)
CPT/HCPCS: 36415; 80053

== ENCOUNTER → 2023-02-06 | Outpatient (CLI) | payer MEDICARE, SELFPAY ==
--- NOTE | 2023-02-06 15:16 | BD_ITS ---
STUDY: DUAL ENERGY X-RAY ABSORPTIOMETRY / DXA REASON FOR EXAM: Female, 72 years old. Osteopenia follow up TECHNIQUE: Bone Mineral Density (BMD) measurements of lumbar spine and bilateral hips were obtained. COMPARISON: Comparison is made with prior study dated February 03, 2020. FINDINGS: Lumbar Spine (L1-L4): g/cm2 (1.033) / T-score (0.1) / Z-score (2.4) Findings are suggestive of normal bone density with a low fracture risk. Left Femur Total: g/cm2 (0.822) / T-score (-1.0) / Z-score (0.7) Left Femoral Neck: g/cm2 (0.604) / T-score (-2.2) / Z-score (-0.2) Right Femur Total: g/cm2 (0.804) / T-score (-1.1) / Z-score (0.6) Right Femoral Neck: g/cm2 (0.685) / T-score (-1.5) / Z-score (0.5) The T-Scores on the most recent prior examination were: Lumbar Spine (L1-L4): There has been worsening of bone density since the previous examination. Left Femur Total: which represents an improvement of 3.6%. Right Femur Total: which represents a worsening of 3.6%. BD/Dexa Bone Density Study IMPRESSION: The patient is considered osteopenic as outlined below according to World Miky Organization (WHO) criteria with a high fracture risk. There has been worsening of bone density since the previous examination. Reference Information: The T-score is the number of standard deviations above or below the standard which is normal for young adults at their peak bone mineral density. The World Health Organization (WHO) interprets the T-scores as follows: Above -1 Normal bone density Between -1 and -2.5 Osteopenia Equal to / or below -2.5 Osteoporosis As a practical clinical guideline, osteopenia may be graded as follows: Mild -1 through -1.5 Moderate -1.6 through -2.0 Severe -2.1 through -2.4 The Z-score is the number of standard deviations above or below age-matched controls. A Z-score of less than -1.5 would be considered abnormal. References: 1. NIH Osteoporosis and Related Bone Diseases www osteo.org 2. International Society for Clinical Densitometry www iscd.org 3. National Osteoporosis Foundation www nof.org Electronically Signed: Boogie Pascual MD at 12:55 EDT ,
--- NOTE | 2023-02-28 13:19 | HP.PT.NRP ---
Patient Information Patient Information: FELIPE BASURTO was seen in my office for initial evaluation on . The following Plan of Care was established for this patient: Last Seen Last Seen: This patient was last seen in our office . Pertinent comments regarding their Physical therapy will appear below: At this point I will be discontinuing this patient from physical therapy. I would be happy to see this patient again in the future if found appropriate by the physician. Thank you! Bryan Fletchre, PT, Cert MDT, OCS
== END | disposition home or self-care (01) ==
LOC: OPBD 15:04
PROVIDERS: PCP Internal Medicine; Referring Provider Internal Medicine; Visit Provider Internal Medicine
DX: Z78.0 Asymptomatic menopausal state (principal)
CPT/HCPCS: 77080

== ENCOUNTER → 2023-06-27 | Outpatient (CLI) | payer MEDICARE, SELFPAY ==
[2023-06-27 16:17] LABS: Cytology, Body Fluid / CSF SEE PATHOLOGY REPORT
--- NOTE | 2023-06-28 | CYSPIN_PTH ---
PATIENT: FELIPE BASURTO LOC: [facility] U#:[id number] AGE/SX: 72/F ROOM: RE06/27/[address]: Dr. Carola Mckeon MD : 1950 BED: DIS: 06/27/2023 SPEC #: [id number] RECD: 06/28/23 07:39 STATUS: SANDRA REJohnathan #: [id number] JUDI: 06/28/23 00:[address]: Carola Mckeon DEPT: CYTOLOGY RECD BY: Velia Rolon ENTERED: 06/28/23 07:42 SP TYPE: CYSPIN FL OTHR DR: Dr. Annette Bravo MD Tissues: Urine Procedures: Pap Stain (control) Special Stain Group II Cytospin Fluid HEADER OPERATION: Not noted PRE-OP DIAGNOSIS: Not noted TISSUE SUBMITTED: Urine DIAGNOSIS CYTOLOGY Urine for cytology (cytospin): Negative for high grade urothelial carcinoma ([facility]). Maria system II SJ: 06/28/2023 COMMENT Correlation with clinical findings and appropriate follow up are necessary. The Maria System for urine cytology diagnostic categorization was used in the evaluation of this case. CYTOLOGY STUDY Slides are reviewed. CYTOLOGY GROSS Received is 5 ml of dark yellow cloudy fluid labeled with the patient's name and and designated per the requisition as urine. Submitted for cytology preparation. TC: 4 CPT: 23201
== END | disposition home or self-care (01) ==
PROVIDERS: PCP Internal Medicine; Visit Provider Urology
DX: R31.0 Gross hematuria (principal)
CPT/HCPCS: 88108; 88313

== ENCOUNTER → 2023-09-27 | Outpatient (CLI) | payer MEDICARE, SELFPAY | END | disposition home or self-care (01) | LOC: LABSPEC 14:33 | PROVIDERS: PCP Internal Medicine; Visit Provider Internal Medicine | DX: R05.9 Cough, unspecified (principal) | CPT/HCPCS: 87502 ==

== ENCOUNTER → 2023-11-07 | Outpatient (CLI) | payer MEDICARE, SELFPAY ==
[2023-11-07 12:26] LABS: Absolute Lymphocyte Count 1.92 X10^3/uL (0.83-4.51); Absolute Neutrophil Count 3.6 X10^3/uL (2.0-7.7); Basophil# 0.04 X10^3/uL; Basophil% 0.6 % (0-1); Eosinophil# 0.19 X10^3/uL; Eosinophils% 3.1 % (0-5); Hemoglobin 12.7 g/dL (12.0-15.0); Lymphocyte # 1.92 X10^3/ul (0.83-4.51); Lymphocyte % 30.9 % (19-41); Mean Corp Hgb Conc 31.8 g/dL (32-36); Mean Corpuscular Hgb 29.6 pg (27.0-32.0); Mean Corpuscular Volume 93.2 fL (81-99); Mean Platelet Vol. 10.2 fl (6.2-12.0); Monocyte# 0.46 X10^3/uL; Monocyte% 7.4 % (0-10); NRBC Flagged by Analyzer 0 % (0-5); Neutrophil # 3.58 X10^3/uL (2.7-7.7); Neutrophil % 57.7 % (47-70); Platelet Count 298 K/mm3 (150-450); RBC Distribution Width CV 12.9 % (11.6-14.6); RBC Distribution Width SD 43.2 fl (35.1-43.9); Red Blood Count 4.29 M/mm3 (4.2-5.4); White Blood Count 6.2 K/mm3 (4.4-11.0)
[2023-11-07 13:18] LABS: AST(SGOT) 20 U/L (15-37); Alanine Aminotransfer ALT/SGPT 21 U/L (13-56); Albumin, Serum 3.6 g/dL (3.2-5.0); Alkaline Phosphatase 91 U/L (45-117); Anion Gap 6 (5-15); BUN 18 mg/dL (7-18); BUN/Creat Ratio 19.6 RATIO (10-20); Calcium,Total 9.6 mg/dL (8.5-10.1); Chloride 107 mmol/L (98-107); Cholesterol 185 mg/dL (200); Creatinine, Serum 0.92 mg/dL (0.55-1.02); EST Glomerular Filtration Rate 64 mL/min (>60); Est Glom Filt Rate - Afr Amer 77 mL/min (>60); Globulin 3.7 g/dL (2.2-4.2); Glucose 107 mg/dL (74-106); High Density Lipoprotein 54 mg/dL; Potassium 4.6 mmol/L (3.5-5.1); Protein, Total 7.3 g/dL (6.4-8.2); Sodium Level 140 mmol/L (136-145); Thyroid Stim Hormone (TSH) 1.72 uIU/mL (0.358-3.74); Triglycerides 91 mg/dL; Very Low Density Lipoprotein 18 mg/dL (5-40)
[2023-11-07 13:23] LABS: Vitamin D,25 Hydroxy 44.4 ng/mL
== END | disposition home or self-care (01) ==
LOC: BIMLAB 10:04
PROVIDERS: PCP Internal Medicine; Referring Provider Physician Assistant; Visit Provider Physician Assistant
DX: E55.9 Vitamin D deficiency, unspecified (principal); I10 Essential (primary) hypertension; E04.1 Nontoxic single thyroid nodule; E78.5 Hyperlipidemia, unspecified
CPT/HCPCS: 36415; 80053; 80061; 82306; 84443; 85025

== ENCOUNTER → 2024-02-04 | Outpatient (CLI) | payer MEDICARE, SELFPAY ==
--- NOTE | 2024-02-04 14:35 | US_ITS ---
STUDY: THYROID ULTRASOUND REASON FOR EXAM: Female, 73 years old. History of thyroid nodules. TECHNIQUE: Ultrasound evaluation of the thyroid was performed with real-time and static almaraz-scale imaging. COMPARISON: Comparison is made with prior sonogram dated September 13, 2020. FINDINGS: RIGHT LOBE: The right lobe of the thyroid gland measures 4.7 cm x 1.3 cm x 1.8 cm. There is a heterogeneous echotexture. Stable 6 mm x 4 mm x 4 mm hypoechoic solid nodule in the superior pole. Stable 4 mm x 3 mm x 4 mm solid and cystic nodule in the inferior pole. LEFT LOBE: The left lobe of the thyroid gland measures 4.5 cm x 1.1 cm x 1.7 cm. There is a heterogeneous echotexture. There is a 9 mm x 5 mm x 7 mm hypoechoic solid nodule in the superior pole. There is also evidence of a 1 cm x 0.7 cm x 0.8 cm solid and cystic nodule in the inferior pole of the left lobe. ISTHMUS: The isthmus measures 3.5 mm. The regional lymph nodes are normal. US/Thyroid IMPRESSION: Stable examination. Yearly follow-up recommended. Electronically Signed: Boogie Pascual MD at 10:42 EDT ,
== END | disposition home or self-care (01) ==
PROVIDERS: PCP Internal Medicine; Referring Provider Internal Medicine; Visit Provider Internal Medicine
DX: E04.2 Nontoxic multinodular goiter (principal)
CPT/HCPCS: 76536

== ENCOUNTER → 2024-02-20 | Outpatient (CLI) | payer MEDICARE, SELFPAY ==
[2024-02-20 15:41] LABS: Magnesium 2.3 mg/dL (1.6-2.6)
[2024-02-20 15:55] LABS: Hemoglobin A1c 5.8 % (3.8-5.6)
[2024-02-21 14:57] LABS: Vitamin B12 233 pg/mL (211-911)
== END | disposition home or self-care (01) ==
LOC: BIMLAB 13:26
PROVIDERS: PCP Internal Medicine; Referring Provider Internal Medicine; Visit Provider Internal Medicine
DX: R53.83 Other fatigue (principal); R73.03 Prediabetes; I10 Essential (primary) hypertension
CPT/HCPCS: 36415; 82607; 83036; 83735

== ENCOUNTER → 2024-06-09 | Outpatient (CLI) | payer MEDICARE, SELFPAY ==
--- NOTE | 2024-06-09 10:06 | RAD_ITS ---
STUDY: X-RAY CHEST REASON FOR EXAM: Female, 73 years old. Shortness of breath and cough TECHNIQUE: PA and lateral views of the chest. COMPARISON: None. FINDINGS: The lungs are clear and expanded. There is no demonstrated pleural abnormality. Normal size heart. Normal mediastinum and angel. Normal visualized pulmonary arteries. Normal visualized aortic arch and descending thoracic aorta. Normal visualized thoracic spine. Normal visualized ribs, clavicles, and shoulders. There is no demonstrated abnormality of the visualized soft tissue structures of the upper abdomen. RAD/Chest PA and Lateral IMPRESSION: Normal x-ray examination of the chest. Electronically Signed: Murali Hassan MD at 10:48 EDT ,
== END | disposition home or self-care (01) ==
PROVIDERS: PCP Internal Medicine; Referring Provider Physician Assistant; Visit Provider Physician Assistant
DX: R06.2 Wheezing (principal)
CPT/HCPCS: 71046

== ENCOUNTER → 2024-08-08 | Outpatient (CLI) | payer MEDICARE, SELFPAY ==
--- NOTE | 2024-08-08 12:53 | ECHOD_ITS ---
Reason For Study: MURMUR Procedure This was a 2D Doppler, Color Flow transthoracic echocardiogram. The study was technically difficult. Exam performed in department. Left Ventricle Normal LV size. Left ventricular systolic function is normal. The left ventricular ejection fraction is 65 %. No regional wall motion abnormalities noted. Right Ventricle Normal RV size. Normal systolic function. Atria Normal left atrium. Normal right atrium. Mitral Valve Normal mitral valve. Tricuspid Valve Normal tricuspid valve. Mild tricuspid valve insufficiency. Pulmonary artery systolic pressure is 30 mmHg. Aortic Valve Trisinus/trileaflet aortic valve. Pulmonic Valve Normal pulmonic valve. Great Vessels Normal aortic root. The pulmonary artery is normal size. Normal inferior vena cava. Pericardium/Pleural No pericardial effusion. MMode/2D Measurements & Calculations LVIDd: 3.6 cm IVSd: 1.1 cm LVOT diam: 1.8 cm LVIDs: 1.8 cm LVPWd: 0.95 cm LVOT area: 2.6 cm2 RVDd: 3.2 cm FS: 50.6 % asc Aorta Diam: 3.1 cm LAV(MOD-bp): 52.4 ml LVAd ap4: 16.1 cm2 LAV(MOD-bp) Indexed: 28.3 ml/m2 LVLd ap4: 6.6 cm LAV(MOD-sp2): 55.3 ml EDV(MOD-sp4): 34.6 ml LAV(MOD-sp4): 50.5 ml EDV(sp4-el): 33.2 ml LVAs ap4: 8.6 cm2 LVLs ap4: 5.5 cm ESV(MOD-sp4): 12.5 ml ESV(sp4-el): 11.4 ml EF(MOD-sp4): 63.7 % EF(sp4-el): 65.5 % LVAd ap2: 16.1 cm2 SV(MOD-sp4): 22.0 ml SV(MOD-sp2): 25.1 ml LVLd ap2: 6.7 cm SI(MOD-sp4): 11.9 ml/m2 SI(MOD-sp2): 13.6 ml/m2 EDV(MOD-sp2): 33.1 ml EDV(sp2-el): 33.0 ml LVAs ap2: 6.4 cm2 LVLs ap2: 4.9 cm ESV(MOD-sp2): 8.0 ml ESV(sp2-el): 7.2 ml EF(MOD-sp2): 75.8 % SV(sp4-el): 21.7 ml Ao sinus diam: 2.[address] Junction: 2.3 cm LA dimension(2D): 3.5 cm LA A4 area: 18.1 cm2 RA A4 area: 11.0 cm2 TAPSE: 2.2 cm Time Measurements MV dec time: 0.25 sec Doppler Measurements & Calculations MV E max abhishek: 88.9 cm/sec Lat Peak E' Abhishek: 8.9 cm/sec Med Peak E' Abhishek: 6.7 cm/sec MV A max abhishek: 113.4 cm/sec E/E' lat: 9.9 E/E' med: 13.3 MV E/A: 0.78 MV dec slope: 356.5 cm/sec2 Ao V2 max: 180.9 cm/sec LV V1 max: 160.6 cm/sec Ao max P.1 mmHg LV V1 max P.3 mmHg Ao V2 mean: 138.3 cm/sec LV V1 mean P.0 mmHg Ao mean P.2 mmHg LV V1 mean: 128.1 cm/sec Ao V2 VTI: 44.6 cm LV V1 VTI: 38.8 cm AV (velocity ratio): 0.87 BRITANY(I,D): 2.3 cm2 BRITANY(V,D): 2.3 cm2 SV(LVOT): 101.4 ml PA V2 max: 101.6 cm/sec TR max abhishek: 262.7 cm/sec TR max P.6 mmHg ECHO/Echo Complete Interpretation Summary Normal LV size. Left ventricular systolic function is normal. The left ventricular ejection fraction is 65 %. Pulmonary artery systolic pressure is 30 mmHg. Ordering Physician: Annette Bravo Referring Physician: Annette Bravo Performed By: Syeda Deleon RDCS
== END | disposition home or self-care (01) ==
LOC: CVS 12:49
PROVIDERS: PCP Internal Medicine; Referring Provider Internal Medicine; Visit Provider Internal Medicine
DX: R01.1 Cardiac murmur, unspecified (principal)
CPT/HCPCS: 93306; 94060; 94726; 94729

== ENCOUNTER → 2024-09-03 | Outpatient (CLI) | payer MEDICARE, SELFPAY ==
--- NOTE | 2024-09-03 10:38 | BI_ITS ---
MAMMOGRAPHY - BILATERAL SCREENING REASON FOR EXAM: Female, 74 years old. Routine annual screening examination. PERTINENT HISTORY: Sister with breast cancer. TECHNIQUE: Digital bilateral breast myles (3D mammographic acquisition) in the CC and MLO projections. 2-D mediolateral oblique (MLO) and craniocaudad (CC) views of both breasts were obtained. CAD: Full Field Digital Mammography with Computer Added Detection was performed. COMPARISON: Comparison is made with prior study dated August 10, 2021 and August 11, 2019. FINDINGS: Breast Composition: There are scattered areas of fibroglandular density. There are no dominant masses or suspicious calcifications. No other significant abnormalities are identified. There has been no significant change since the prior study. BI/SCRN MAMM (CAD)W/MYLES BILAT IMPRESSION: Stable bilateral screening mammogram. Yearly follow-up mammogram recommended. (A) ASSESSMENT CATEGORY: BIRADS Category 1: Negative. A letter regarding these results will be sent to the patient by the facility within 30 days. Approximately 10% of breast cancers are not detected by mammography. A normal mammogram should not delay biopsy of a clinically suspicious abnormality. [id number] Electronically Signed: Boogie Pascual MD at 11:03 EST ,
== END | disposition home or self-care (01) ==
LOC: OPBI 10:37
PROVIDERS: PCP Internal Medicine; Referring Provider Internal Medicine; Visit Provider Internal Medicine
DX: Z12.31 Encounter for screening mammogram for malignant neoplasm of breast (principal); Z80.3 Family history of malignant neoplasm of breast
CPT/HCPCS: 77063; 77067

== ENCOUNTER → 2025-02-26 | Outpatient (CLI) | payer MEDICARE, SELFPAY ==
--- OUTSIDE RECORDS SUMMARY | 2025-02-26 02:02 | XMS RPT_ITS | CCD ---
Author Organization [facility] CliniSyal Care Team Providers Care Crimper Operator Name Role Phone Laura Singh MD Unavailable Prince AGRONOMY LOCATION MANAGER, Ami Lopez Unavailable Lorie Abraham Unavailable Unavailable Lorie Abraham Unavailable Unavailable Lorie Abraham Unavailable Unavailable Laura Singh MD Unavailable [phone] [address] Kaleb Astorga Primary Care Provider Dr. Kaleb Astorga Referring Provider Prince AGRONOMY LOCATION MANAGER, AGRONOMY LOCATION MANAGER-C Ami Attending Provider Juan GROVE, PERFECTO Pereira Attending Provider DO ALIE UMANZOR Attending Unavailab le Required, No Pcp Unavailable Unavailable Octavio Jaeger Unavailable [phone] Issac Owens Unavailable Kaleb Astorga MD Primary Care Provider [phone] Geoff Pena MD Unavailable Kaleb Astorga MD Unavailable Reg Castaneda RN Unavailable KALEB ASTORGA Primary Care Unavailable JOSE MARTIN MARTINEZ Consulting Unavailable GEOFF PENA Attending GEOFF San Admitting Geoff San MD Unavailable Dr. Octavio Jaeger Admitting Dr. Octavio Archuleta Attending Alyce Bower, Jodee Referring Unavailable None, No PCP Unavailable Unavailable Unavailable Unavailable Dr. Kaleb Astorga Primary Care Provider Dr. Kaleb Astorga Referring Provider Dr. Torres Bravo Attending Provider [phone] MD ANGELA AL Attending Unavail able Furlan, Dr. Issac Shi Referring Unavail able Furlan, Dr. Issac Shi Attending Unavail able Jaeger, Dr. Octavio Miles Referring Unavai lable Furlan, Dr. Issac Shi Attending Unavail able Dr. Torres Bravo Primary Care Provider Dr. Torres Bravo Attending Provider [phone] Dr. Torres Bravo Referring Provider [phone]) MD Kaleb Sahu Attending Provider [phone] Solo, Dr. Corea Attending Provider Dr. Arina Acuña Attending Provider Dr. Torres Bravo Primary Care Provider Dr. Torres Bravo Attending Provider [phone] Dr. Torres Bravo Referring Provider [phone]) Dr. Torres Bravo Primary Care Provider Dr. Torres Bravo Attending Provider [phone]) Dr. Torres Bravo Referring Provider [phone]) PERFECTO Wade Attending Provider [phone]) Milad Monae DO Unavailable Torres Bravo MD Primary Care Provider TORRES BRAVO Primary Care Unavailable JOHN AMIN Attending Unavailable JOHN AMIN Admitting Unavailable JOHN AMIN Consulting Unavailable Dr. Torres Bravo MD Primary Care Provider [phone] Dr. Torres Bravo MD Referring Provider Efrain WILEY-CDanielle Attending Provider ANGELA ORELLANA Referring Unavailable Dr. Torres Bravo MD Attending Provider Prince WILEY, Ami Attending Unavailable [place], Torres Referring Unavailable [place], Torres Primary Care Unavailable Samson Zaldivar Attending Unavailable Shelly, Torres Primary Care Unavailable [place], Torres Referring Unavailable Shelly, Torres Attending Unavailable [place], Torres Referring Unavailable [place], Torres Primary Care Unavailable Danielle Zuniga Attending Unavailable [place], Torres Referring Unavailable [place], Torres Primary Care Unavailable Shelly, Torres Primary Care Unavailable [place], Torres Attending Unavailable Shelly, Torres Referring Unavailable [place], Torres Primary Care Unavailable Alfonso Harman Attending Unavailable Shelly, Torres Referring Unavailable [place], Torres Primary Care Unavailable [place], Torres Attending Unavailable Shelly, Torres Referring Unavailable Shelly, Torres Primary Care Unavailable Shelly, Torres Attending Unavailable [place], Torres Referring Unavailable [place], Torres Primary Care Unavailable Jovita Hodges Attending Unavailable Shelly, Torres Referring Unavailable Samson Zaldivar Attending Unavailable Samson Zaldivar Referring Unavailable Shelly, Torres Primary Care Unavailable [place], Torres Primary Care Unavailable Anmol Banda Attending Unavailable MATILDA, ANGELA A Referring Unavailable SHELLY, TORRES EDMUNDO Primary Care Unavailable Allergies Allergy Classification Reported Allergen(s) Allergy Type Date of Onset Reaction(s) Facility Corticosteroids (1 source) Cortisone Drug Allergy 08-14-20 06 Rash, Swelling [facility] Iodine (and Iodine containting drugs) (1 source) Iodine Drug Allergy 08-14-20 06 [facility] Work Phone: Sulfamethoxazole / Trimethoprim (1 source) Sulfamethoxazole / Trimethoprim Drug Allergy 07-11-20 22 Itching [facility] Work Phone: Sulfonamides (antibiotic) (1 source) Sulfonamides (Antibiotic) Drug Allergy 06-07-20 23 [facility] Work Phone: (12 sources) Nitrofurantoin; Translations: [NITROFURANTOIN] Drug Allergy 08-30-19 19 Itching [facility] (20 sources) Cortisone; Translations: [CORTISONE] Drug Allergy 08-14-20 06 Rash, Swelling [facility] Work Phone: (20 sources) Iodine; Translations: [IODINE] Drug Allergy 08-14-20 06 Unknown [facility] Work Phone: (8 sources) Sulfonamides (Antibiotic); Translations: [Sulfa Drugs] Allergy to drug (finding) [facility] [address] Work Phone: (7 sources) Sulfamethoxazole Drug Allergy 10-03-19 23 Itching [facility] (7 sources) Trimethoprim Drug Allergy 10-03-19 23 Itching [facility] (4 sources) Sulfamethoxazole / Trimethoprim; Translations: [SULFAMETHOXAZOLE-T RIMETHOPRIM] Drug Allergy 07-11-20 22 Itching [facility] Work Phone: (4 sources) Sulfonamides (Antibiotic); Translations: [SULFA (SULFONAMIDE ANTIBIOTICS)] Propensity to adverse reactions 06-07-20 [facility] Work Phone: (1 source) Nitrofurantoin Drug Allergy 02-19-20 25 [facility] (1 source) Sulfamethoxazole Drug Allergy 02-19-20 [facility] (1 source) Trimethoprim Drug Allergy 02-19-20 [facility] Medications Current Medications Medication Drug Class(es) Dates Sig (Normalized) Sig (Original) acetaminophen 325 mg oral tablet (20 sources) Start: 01-29-2025 take 1 tablet by mouth every four hours as needed 650 mg, oral, Every 4 hours PRN, pain mild (1-3), first line, Starting on Marcela 01/29/25 at 2310, Administer tablet or oral liquid per patient preference., If ordered PRN for pain, nurse is permitted to administer this medication for higher pain scores based on patient preference? Yes Start: 07-24-2022 take 1 tablet by miladys th every six hours as needed acetaminophen (Tylenol) 325 mg tablet Take 1 tablet (325 mg) by mouth every 6 hours if needed (pain). 07/24/2022 Active Comment on above: Take 325 mg by mouth every 6 hours as needed for pain. [id number] actuat albuterol 0.09 mg/actuat metered dose inhaler (20 sources) beta2-Adrenergic Agonist Start: 01-24-2023 take 2 puff(s) by inhalation every six hours albuterol 90 mcg/actuation inhaler Inhale 2 puffs every 6 hours if needed for shortness of breath. 01/24/2023 Active Start: 01-24-2023 albuterol 90 m cg/actuation inhaler Inhale. 01/24/2023 Active Start: 06-16-2020 End: 07-28-2024 Albuterol Sulfate 90 mcg/act uation HFA aerosol inhaler Discontinued 2 NMA INHALATION EVERY 6 HOURS as needed for shortness of breath or wheezing 8.5 July 26, 2023 6:03pm July 28, 2024 3:43pm Start: 06-16-2020 End: 07-26-2023 take 1 puff(s) by inhalation every six hours Albuterol Sulfate Discontinued 2 PUFF INHALATION EVERY 6 HOURS 8.5 January 24, 2023 11:36am July 26, 2023 6:04pm Start: 03-14-2018 End: 07-01-2018 Albuterol Sulfate (Ventolin Hfa) 90 mcg/actuation HFA aerosol inhaler Discontinued 2 NMA INHALATION Q4H as needed for shortness of breath or wheezing 18 March 14, 2018 9:37am July 01, 2018 3:52pm Start: 03-14-2018 End: 07-01-2018 take 1 puff(s) by inhalation every four hours Albuterol Sulfate (Ventolin Hfa) 90 mcg/actuation HFA aerosol inhaler Discontinued 2 PUFF INHALATION Q4H March 14, 2018 9:37am July 01, 2018 3:52pm Start: 02-07-2018 End: 03-14-2018 Albuterol Sulfate (Ventolin Hfa) 90 mcg/actuation HFA aerosol inhaler Discontinued 2 NMA INHALATION Q4H as needed February 07, 2018 12:00am March 14, 2018 9:37am Start: 02-07-2018 End: 03-14-2018 take 1 puff(s) by inhalation every four hours Albuterol Sulfate (Ventolin Hfa) 90 mcg/actuation HFA aerosol inhaler Discontinued 2 PUFF INHALATION Q4H February 07, 2018 12:00am March 14, 2018 9:37am Start: 02-11-2013 take 2 puff(s) by in halation every four hours as needed for cough albuterol 90 mcg/actuation Aero Indications: Allergic asthma Inhale 2 Puffs as instructed every 4 hours as needed (shortness of breath/cough/wheeze). With spacer please. 1 Inhaler 5 02/11/2013 Active Comment on above: Inhale 2 Puffs as in structed every 4 hours as needed (shortness of breath/cough/wheeze). With spacer please. albuterol 0.833 mg/ml / ipratropium bromide 0.167 mg/ml inhalation solution (20 sources) Anticholinergic, beta2-Adrenergic Agonist Start: 2021 take 3 mL by inhalation every six hours as needed ipratropium-albute rol 0.5 mg-2.5 mg/3 mL inhalation solution ; 3 milliliter(s) inhaled every 6 hours, As needed, Wheezing Quantity: 0 Refills: 0 Ordered: 05-Jul-2022 Arturo Graham Start: 05-Jul-2022 Generic Substitution Allowed Start: 07-05-2022 End: 01-29-2025 3 mL, nebulization, 4 times daily PRN, wheezing, shortness of breath, Starting on Sun01/30/25 at 0042 Comment on above: Inhale 3 mL as instr ucted four times daily as needed for wheezing/shortness of breath. aluminum hydroxide 40 mg/ml / magnesium hydroxide 40 mg/ml / simethicone 4 mg/ml oral suspension (1 source) Start: 2024 take 20 mL by mouth four times daily as needed for gastroesophageal reflux disease 20 mL, oral, 4 times daily PRN, indigestion, heartburn, second line, Starting on Marcela 01/29/25 at 2310 azelastine hydrochloride 0.5 mg/ml ophthalmic solution (20 sources) Histamine-1 Receptor Antagonist Start: 2021 take 1 drop(s) into the eye(s) twice daily as needed azelastine (Optivar) 0.05 % ophthalmic solution Administer 1 drop into both eyes 2 times a day as needed (eye redness, irritation). 07/26/2022 Active Start: 07-26-2022 Azelastine HCl (OPTIVAR) 0.05 % ophthalmic solution [The details of the medication are not available because there are pending changes by a home health clinician.] 0 07/26/2022 Active take 1 drop(s) into the eye(s) twice daily as needed Azelastine HCl (OPTIVAR) 0.05 % ophthalmic solution Use 1 Drop in both eyes twice daily as needed. 0 Active Comment on above: Use 1 Drop in both e yes twice daily as needed. [The details of the medication are not available because there are pending changes by a home health clinician.] benzocaine 15 mg / menthol 3.6 mg oral lozenge (1 source) Standardized Chemical Allergen Start: 5 1 lozenge, Mouth/Throat, Every 2 hour PRN, sore throat, Starting on [facility] 01/29/25 at 2310 benzonatate 100 mg oral capsule (1 source) Non-narcotic Antitussive Start: 5 take 100 mg by mouth three times daily as needed for cough 100 mg, oral, 3 times daily PRN, cough, Starting on [facility] 01/29/25 at 2310, Do not crush or chew. bisacodyl 10 mg rectal suppository (1 source) Stimulant Laxative Start: 5 take 10 mg rectal route every twenty-four hours as needed 10 mg, rectal, Daily PRN, constipation, second line, Starting on [facility] 01/29/25 at 2310 budesonide 0.125 mg/ml inhalation suspension (9 sources) Corticosteroid Start: 5 Start: 02-22-2018 End: 07-01-2018 take 0.5 mg by inhalation every twelve hours Budesonide 0.5 mg/2 mL suspension for nebulization Discontinued 0.5 mg INHALATION Q12H 120 3 February 22, 2018 12:00am July 01, 2018 3:53pm Unspecified asthma, uncomplicated J45.909- Unspecified asthma, uncomplicated calcium carbonate 500 mg chewable tablet (9 sources) Start: 01-30-2025 take 2 tablets by mo uth four times daily as needed for gastroesophageal reflux disease 2 tablet, oral, 4 times daily PRN, heartburn, Starting on Sun01/30/25 at 0737 Start: 06-27-2017 End: 02-07-2018 take 1 tablet by mouth once daily Calcium Carbonate 600 MG tablet Discontinued 600 mg PO DAILY June 27, 2017 1:00am February 07, 2018 8:56am carvedilol 6.25 mg oral tablet (20 sources) alpha-Adrenergic Malka, beta-Adrenergic Malka Start: 07-26-2022 End: 01-13-2025 take 1 tablet by mouth twice daily carvedilol (Coreg) 6.25 mg tablet Take 1 tablet (6.25 mg) by mouth 2 times daily (morning and late afternoon). hold if your HR is below 60 07/26/2022 Active Start: 07-24-2022 End: 01-31-2025 take 0.5 tablet by mouth twice daily at breakfast carvedilol (Coreg) 12.5 mg tablet Take 0.5 tablets (6.25 mg) by mouth 2 times a day. WITH BREAKFAST AND Nighttime 07/24/2022 01/31/2025 Discontinued (Stop Taking at Discharge) Start: 07-24-2022 take 1 tablet by miladys th twice daily at breakfast carvedilol (Coreg) 12.5 mg tablet Take 1 tablet (12.5 mg) by mouth 2 times a day. WITH BREAKFAST AND WITH SUPPER 07/24/2022 Active Start: 07-06-2022 take 1 tablet by miladys th twice daily carvedilol 25 mg oral tablet ; 1 tab(s) orally 2 times a day Quantity: 0 Refills: 0 Ordered: 06-Jul-2022 Arturo Graham Start: 06-Jul-2022 Generic Substitution Allowed Start: 07-05-2022 take 1 tablet by miladys th twice daily carvedilol 12.5 mg oral tablet ; 1 tab(s) orally 2 times a day Quantity: 0 Refills: 0 Ordered: 05-Jul-2022 Arturo Graham Start: 05-Jul-2022 Status: Discontinued Generic Substitution Allowed End: 01-29-2025 take 6.25 mg by mouth twice daily carvedilol (Coreg) 25 mg tablet Take 6.25 mg by mouth 2 times a day. 01/29/2025 Discontinued (Duplicate order) Comment on above: Take 6.25 mg by mout h twice daily with meals. hold if your HR is below 60 cetirizine hydrochloride 10 mg oral tablet (3 sources) Histamine-1 Receptor Antagonist Start: 01-30-2025 take 10 mg by mouth once daily 10 mg, oral, Daily, First dose on Sun01/30/25 at 0900 cholecalciferol 0.025 mg oral tablet (20 sources) Vitamin D Start: 01-30-2025 take 125 ug by mouth once daily in the morning 125 mcg, oral, Every morning, First dose on Sun01/30/25 at 0900 Start: 10-03-2022 take 1 capsule by mo ut once daily Cholecalciferol (Vitamin D3) 125 mcg (5,000 unit) capsule Active 125 ug PO DAILY October 03, 2022 1:00am Start: 07-26-2022 cholecalcifero l, vitamin D3, 4,000 unit cap [The details of the medication are not available because there are pending changes by a home health clinician.] 0 07/26/2022 Active Start: 07-24-2022 take 1 capsule by mo uth once daily in the morning cholecalciferol (Vitamin D-3) 125 MCG (5000 UT) capsule Take 1 capsule (5,000 Units) by mouth once daily in the morning. 07/24/2022 Active Start: 10-21-2019 End: 10-03-2022 Cholecalciferol (Vitamin D3) 5,000 unit tablet,disintegrating Discontinued U PO October 21, 2019 1:00am October 03, 2022 2:38pm Start: 10-21-2019 End: 10-03-2022 Cholecalciferol (Vitamin D3) Discontinued UNIT PO October 21, 2019 1:00am October 03, 2022 2:38pm Start: 10-12-2016 End: 07-01-2018 take 1 capsule by mouth once daily Cholecalciferol (Vitamin D3) 1,000 UNIT capsule Discontinued 1000 U PO DAILY October 12, 2016 1:00am July 01, 2018 3:53pm Start: 07-19-2016 VITAMIN D3 100 0 UNIT TABS CHOLECALCIFEROL [id number] Zurdo Gilman End: 01-29-2025 take 1 tablet by mouth once daily cholecalciferol (Vitamin D-3) 25 MCG (1000 UT) tablet Take 1 tablet (1,000 Units) by mouth once daily. 01/29/2025 Discontinued (Therapy completed) take 1 capsule by mo [facility] once daily cholecalciferol, vitamin D3, 4,000 unit cap Take 4,000 Units by mouth once daily. 0 Active take 1 tablet by miladys once daily Vitamin D3 125 mcg (5000 intl units) oral tablet ; 1 tab(s) orally once a day Quantity: 0 Refills: 0 Ordered: 04-Jul-2022 Viviana Flores Generic Substitution Allowed Comment on above: Take 4,000 Units by mouth once daily. [The details of the medication are not available because there are pending changes by a home health clinician.] famotidine 20 mg oral tablet (20 sources) Histamine-2 Receptor Antagonist Start: 2 take 1 tablet by mouth every twenty-four hours as needed famotidine (Pepcid) 20 mg tablet Take 1 tablet (20 mg) by mouth once daily as needed for indigestion. 07/26/2022 Active Comment on above: Take 20 mg by mouth once daily. Fluticasone Propion-Salmeterol (20 sources) Corticosteroid, beta2-Adrenergic Agonist Start: Fluticasone Propion-Salmeterol (Wixela Inhub) 500-50 mcg/dose blister with device Active 1 NMA INHALATION TWICE A DAY 60 30 February 18, 2025 10:39am Start: 12-11-2024 End: 02-18-2025 Fluticasone Propion-Salmeter ol (Wixela Inhub) 500-50 mcg/dose blister with device Discontinued 1 NMA INHALATION TWICE A DAY 60 30 December 11, 2024 12:35pm February 18, 2025 10:42am Start: 12-11-2024 Fluticasone Pr opion-Salmeterol (Wixela Inhub) 500-50 mcg/dose blister with device Active 1 NMA INHALATION TWICE A DAY 60 December 11, 2024 12:35pm Start: 10-15-2024 End: 12-11-2024 Fluticasone Propion-Salmeter ol (Wixela Inhub) 500-50 mcg/dose blister with device Discontinued 1 NMA INHALATION TWICE A DAY 60 30 October 15, 2024 4:25pm December 11, 2024 12:35pm Start: 10-15-2024 End: 12-11-2024 Fluticasone Propion-Salmeter ol (Wixela Inhub) 500-50 mcg/dose blister with device Discontinued 1 NMA INHALATION TWICE A DAY 60 30 October 15, 2024 4:25pm December 11, 2024 12:35pm Start: 07-28-2024 End: 10-15-2024 Fluticasone Propion-Salmeter ol (Wixela Inhub) 500-50 mcg/dose blister with device Discontinued 1 NMA INHALATION TWICE A DAY 60 30 July 28, 2024 3:43pm October 15, 2024 4:25pm Start: 07-28-2024 End: 10-15-2024 Fluticasone Propion-Salmeter ol (Wixela Inhub) 500-50 mcg/dose blister with device Discontinued 1 NMA INHALATION TWICE A DAY 60 30 July 28, 2024 3:43pm October 15, 2024 4:25pm Start: 01-24-2024 End: 07-28-2024 Fluticasone Propion-Salmeter ol (Wixela Inhub) 500-50 mcg/dose blister with device Discontinued 1 NMA INHALATION TWICE A DAY 60 30 January 24, 2024 12:00am July 28, 2024 3:43pm Start: 01-24-2024 End: 07-28-2024 Fluticasone Propion-Salmeter ol (Wixela Inhub) 500-50 mcg/dose blister with device Discontinued 1 NMA INHALATION TWICE A DAY 60 January 24, 2024 12:00am July 28, 2024 3:43pm Start: 07-26-2022 End: 01-30-2025 take 1 puff(s) by inhalation twice daily fluticasone propion-salmeteroL (AirDuo RespiClick) 113-14 mcg/actuation inhaler Inhale 1 puff twice a day. as instructed 07/26/2022 01/30/2025 Discontinued (Therapy completed) Start: 07-26-2022 fluticasone pr opion-salmeterol (AIRDUO RESPICLICK) 113-14 mcg/actuation breath activated inhaler Inhale 1 Inhalation as instructed twice daily. 0 07/26/2022 Active Start: 07-24-2022 take 1 puff(s) by in halation twice daily Advair Diskus 250-50 mcg/dose diskus inhaler Inhale 1 puff 2 times a day. FOR 30 DAYS 07/24/2022 Active Comment on above: Inhale 1 Inhalation as instructed twice daily. formoterol fumarate 0.01 mg/ml inhalation solution (1 source) beta2-Adrenergic Agonist Start: 12 hr guaiFENesin 600 mg extended release oral tablet (1 source) Start: take 600 mg by mouth twice daily as needed for congestion 600 mg, oral, 2 times daily PRN, congestion, Starting on Marcela 01/29/25 at 2310, Administer with plenty of fluids to ensure proper action. Do not crush, chew, or split. 1 ml hydrALAZINE hydrochloride 20 mg/ml injection (1 source) Arteriolar Vasodilator Start: take 10 mg intravenously every four hours as needed 10 mg, intravenous, Every 4 hours PRN, SBP >180, DBP >100 (second line), Starting on Marcela 01/29/25 at 2310 hydrOXYzine hydrochloride 50 mg oral tablet (20 sources) Antihistamine Start: take 1 tablet by mouth every four hours as needed 25 mg, oral, Every 4 hours PRN, anxiety, itching, Starting on Marcela 01/29/25 at 2310 Start: 07-06-2022 take 1 tablet by miladys th every six hours as needed hydrOXYzine hydrochloride 25 mg oral tablet ; 1 tab(s) orally every 6 hours, As needed, anxiety Quantity: 0 Refills: 0 Ordered: 06-Jul-2022 Arturo Graham Start: 06-Jul-2022 Generic Substitution Allowed Start: 07-06-2022 End: 01-29-2025 take 1 tablet by mouth four times daily as needed for anxiety hydrOXYzine HCL (Atarax) 25 mg tablet Take 1 tablet (25 mg) by mouth 4 times a day as needed for anxiety. 07/06/2022 01/29/2025 Discontinued (Therapy completed) Comment on above: Take 25 mg by mouth four times daily as needed for anxiety. levoFLOXacin 500 mg oral tablet (1 source) Quinolone Antimicrobial Start: 02-01-20 End: 02-08-20 take 1 tablet by mouth once daily levoFLOXacin (Levaquin) 500 mg tablet Indications: Colitis Take 1 tablet (500 mg) by mouth once daily for 7 days. 7 tablet 01/31/2025 02/07/2025 Active lisinopril 40 mg oral tablet (20 sources) Angiotensin Converting Enzyme Inhibitor Start: 07-26-20 End: 01-14-20 take 1 tablet by mouth once daily lisinopril 40 mg tablet Take 1 tablet (40 mg) by mouth once daily. 07/26/2022 Active Start: 07-24-2022 End: 01-30-2025 take 1 tablet by mouth once daily in the morning lisinopril 20 mg tablet Take 1 tablet (20 mg) by mouth once daily in the morning. 07/24/2022 01/30/2025 Discontinued (Therapy completed) Comment on above: Take 40 mg by mouth once daily. lovastatin 10 mg oral tablet (7 sources) HMG-CoA Reductase Inhibitor Start: 07-28-2024 End: 02-18-2025 take 1 tablet by mouth once daily in the evening Lovastatin 10 mg tablet Active 10 mg PO EVERY EVENING 90 February 18, 2025 10:39am melatonin 3 mg oral tablet (20 sources) Start: 01-29-2025 take 6 mg by mouth once daily as needed for sleep 6 mg, oral, Nightly PRN, sleep, Starting on Marcela 01/29/25 at 2310 Start: 07-26-2022 take 2 tablets by mo uth once daily at bedtime MELATONIN ORAL Take 3 mg by mouth daily at bedtime. take 2 tablets 0 07/26/2022 Active Start: 07-06-2022 melatonin 3 mg oral tablet ; 1 tab(s) orally - Daily 1800 Quantity: 0 Refills: 0 Ordered: 06-Jul-2022 Arturo Graham Start: 06-Jul-2022 Generic Substitution Allowed Start: 07-06-2022 End: 01-29-2025 take 2 tablets by mouth once daily at bedtime melatonin 3 mg tablet Take 2 tablets (6 mg) by mouth once daily at bedtime. 07/06/2022 01/29/2025 Discontinued (Therapy completed) Comment on above: Take 3 mg by mouth d aily at bedtime. take 2 tablets 5 ml metoprolol tartrate 1 mg/ml injection (20 sources) beta-Adrenergic Malka Start: 01-29-2025 take 5 mg intravenously every six hours as needed 5 mg, intravenous, Every 6 hours PRN, sbp >180, DBP >100, HR >120 (hold for HR Start: 09-23-2022 End: 01-29-2025 take 1 tablet by mouth every twenty-four hours metoprolol succinate XL (Toprol-XL) 50 mg 24 hr tablet Take by mouth. 09/23/2022 01/29/2025 Discontinued (Therapy completed) Start: 10-12-2016 End: 10-03-2022 take 1 tablet by mouth once daily Metoprolol Tartrate 25 MG tablet Discontinued 25 mg PO DAILY October 12, 2016 1:00am October 03, 2022 2:37pm Start: 07-19-2016 METOPROLOL SUC CINATE ER 50 MG [id number] METOPROLOL SUCCINATE [id number] Zurdo Gilman End: 01-29-2025 take 1 tablet by mouth once daily metoprolol succinate XL (Toprol-XL) 25 mg 24 hr tablet Take 1 tablet (25 mg) by mouth once daily. 01/29/2025 Discontinued (Therapy completed) take 1 tablet by mouth once ronnie y metoprolol tartrate 37.5 mg oral tablet ; 1 tab(s) orally once a day Quantity: 0 Refills: 0 Ordered: 04-Jul-2022 Viviana Flores Status: Other Generic Substitution Allowed Comment on above: Take 25 mg by mouth once daily. metroNIDAZOLE 500 mg oral tablet (20 sources) Nitroimidazole Antimicrobial Start: 02-01-20 End: 02-11-20 take 1 tablet by mouth three times daily metroNIDAZOLE (Flagyl) 500 mg tablet Indications: Colitis Take 1 tablet (500 mg) by mouth 3 times a day for 10 days. 30 tablet 01/31/2025 02/10/2025 Active Start: 01-29-2025 End: 01-30-2025 500 mg, intravenous, Adminis ter over 60 Minutes, Once, On Marcela 01/29/25 at 2230, For 1 dose, Do NOT give with alcohol or drug products with significant alcohol content., Suspected Indication (Select all that apply): Abdominal Infection, Type of Therapy: Empiric, Type of infection: Community-Acquired, Indications: Abdominal Infection Start: 01-07-2013 End: 01-29-2025 metroNIDAZOLE (Metrogel) 1 % gel Apply 1 Application topically once daily. to affected area 01/07/2013 01/29/2025 Discontinued (Therapy completed) Comment on above: Apply 1 application to affected area once daily. omeprazole 20 mg delayed release oral capsule (20 sources) Proton Pump Inhibitor Start: 10-03-2022 Omeprazole 20 mg capsule,delayed release(DR/EC) Active 20 mg PO as needed October 03, 2022 1:00am Start: 10-12-2016 End: 07-01-2018 Omeprazole 20 MG capsule Discontinued 20 mg PO NEEDED as needed for Indigestion October 12, 2016 1:00am July 01, 2018 3:53pm take 1 tablet by miladys every twenty-four hours as needed omeprazole (PriLOSEC) 20 mg tablet,delayed release (DR/EC) EC tablet Take 1 tablet (20 mg) by mouth once daily as needed (heartburn). Active Comment on above: Take by mouth once d aily. 2 ml ondansetron 2 mg/ml injection (20 sources) Serotonin-3 Receptor Antagonist Start: 01-30-20 take 4 mg intravenously every four hours as needed 4 mg, intravenous, Every 4 hours PRN, nausea/vomiting, first line, Starting on [facility] 01/29/25 at 2310, When administering via IV Push, administer over 3-5 minutes. Start: 07-24-2022 End: 01-29-2025 take 1 tablet by mouth every eight hours as needed ondansetron ODT (Zofran-ODT) 4 mg disintegrating tablet Take 1 tablet (4 mg) by mouth every 8 hours if needed for nausea or vomiting. 07/24/2022 01/29/2025 Discontinued (Therapy completed) Comment on above: Take 4 mg by mouth e very 8 hours as needed for nausea/vomiting. pantoprazole 40 mg delayed release oral tablet (1 source) Proton Pump Inhibitor Start : 01-30 take 40 mg by mouth once daily before breakfast 40 mg, oral, Daily before breakfast, First dose on Sun01/30/25 at 0700, Do not crush, chew, or split. piperacillin 4000 mg / tazobactam 500 mg injection (1 source) Penicillin-class Antibacterial, beta Lactamase Inhibitor Start : 01-30 take 4.5 g intravenously every six hours 4.5 g, intravenous, Administer over 0.5 Hours, Every 6 hours, First dose on Sun01/30/25 at 0100, premix bag, Dosing of this medication varies based on severity of illness. Does this patient have sepsis or concern for sepsis (probable or documented infection plus systemic manifestations of infection)? Yes, Suspected Indication (Select all that apply): Abdominal Infection, Type of Therapy: Empiric, Type of infection: Community-Acquired, Indications: Abdominal Infection polyethylene glycol 3350 19873 mg powder for oral solution (20 sources) Osmotic Laxative Start : 07-24 End: 01-29 take 17 g by mouth every twenty-four hours as needed 17 g, oral, Daily PRN, constipation, Starting on Sun01/29/25 at 2310 Comment on above: Take 17 g by mouth o nce daily. pravastatin sodium 20 mg oral tablet (1 source) HMG-CoA Reductase Inhibitor Start : 01-30 take 20 mg by mouth once daily 20 mg, oral, Nightly, First dose on Sun01/30/25 at 0030 prochlorperazine 5 mg/ml injectable solution (1 source) Phenothiazine Start : 01-29 take 10 mg intravenously every six hours as needed 10 mg, intravenous, Every 6 hours PRN, nausea/vomiting, second line, Starting on Sun01/29/25 at 2310, Give IV if patient is unable to take orally. traZODone hydrochloride 50 mg oral tablet (1 source) Serotonin Reuptake Inhibitor Start : 01-29 take 50 mg by mouth once daily as needed for sleep 50 mg, oral, Nightly PRN, sleep, second line, Starting on Sun01/29/25 at 2310 vancomycin (Vancocin) 0.75 g in sodium chloride 0.9% 250 mL IV (1 source) Start : 01-31 take 750 mg intravenously every twelve hours 0.75 g (750 mg), intravenous, at 353.3 mL/hr, Administer over 45 Minutes, Every 12 hours, First dose on Sun01/31/25 at 0100, Dosing of this medication varies based on severity of illness. Does this patient have sepsis or concern for sepsis (probable or documented infection plus systemic manifestations of infection)? No, Suspected Indication (Select all that apply): Abdominal Infection, Type of Therapy: Empiric, Type of infection: Community-Acquired, Indications: Abdominal Infection vancomycin (Vancocin) pharmacy to dose - pharmacy monitoring (1 source) Start : 01-30 miscellaneous, Daily PRN, other, Vancomycin Placeholder, Starting on Sun01/30/25 at 0036, This is a placeholder. Pharmacy will enter orders when vancomycin needs to be administered. 24 hr venlafaxine 75 mg extended release oral capsule (20 sources) Serotonin and Norepinephrine Reuptake Inhibitor Start : 01-30 37.5 mg, oral, Daily, First dose on Sun01/30/25 at 2100, Take in combination with 75 mg capsule for total dose of 112.5 mg Capsule may be swallowed whole, or may be opened and its contents sprinkled on applesauce if consumed immediately without chewing. Do not crush or chew. Start: 01-30-2025 75 mg, oral, D aily, First dose on Sun01/30/25 at 0900, Take in combination with 37.5 mg capsules for total dose of 112.5 mg Capsule may be swallowed whole, or may be opened and its contents sprinkled on applesauce if consumed immediately without chewing. Do not crush or chew. Start: 01-24-2024 End: 02-18-2025 Venlafaxine 37.5 mg capsule, extended release 24hr Active 37.5 mg PO AT BEDTIME 90 0 February 18, 2025 10:39am take in combination with 75mg for a total of 112.5mg Start: 11-23-2022 take 1 capsule by [facility] every twenty-four hours Venlafaxine HCl ER 75 MG Oral Capsule Extended Release 24 Hour Quantity: 30 Refills: 0 Ordered: 23-Nov-2022 DO Start : 23-Nov-2022 Active Start: 10-03-2022 End: 02-18-2025 take 1 capsule by mouth once daily Venlafaxine 75 mg capsule,extended release 24hr Active 75 mg PO DAILY 90 0 February 18, 2025 10:39am Start: 10-13-2021 End: 10-03-2022 take 75 mg by mouth once daily Venlafaxine Discontinue d 75 MG PO DAILY October 13, 2021 11:06am October 03, 2022 2:39pm Start: 07-19-2016 End: 10-03-2022 take 1 capsule by mouth once daily Venlafaxine 37.5 mg capsule,extended release 24hr Discontinued 75 mg PO DAILY October 13, 2021 11:06am October 03, 2022 2:39pm Start: 07-19-2016 EFFEXOR XR 37. 5 MG [id number] VENLAFAXINE HCL [id number] Zurdo Lopez Mukul take 1 tablet by miladys th once daily Venlafaxine HCl - 75 MG Oral Tablet TAKE 1 TABLET DAILY. Quantity: 30 Refills: 5 Ordered: 01-Dec-2022 DO Active Comment on above: Take 37.5 mg by mout h once daily. Completed/Discontinued Medications Medication Drug Class(es) Dates Sig (Normalized) Sig (Original) alendronic acid 70 mg oral tablet (7 sources) Bisphosphonate Start: 02-13-2023 End: 01-29-2025 take 1 tablet by mouth every week Alendronate (Fosamax) 70 mg tablet Discontinued 70 mg PO EVERY WEEK 12 February 13, 2023 12:00am July 28, 2024 11:15am amoxicillin 500 mg oral capsule (6 sources) Penicillin-class Antibacterial Start: 04-10-2023 End: 01-29-2025 take 1 capsule by mouth three times daily Amoxicillin 500 mg capsule Discontinued 500 mg PO THREE TIMES A DAY 30 10 April 10, 2023 12:00am April 19, 2023 12:00am April 20, 2023 12:03am atorvastatin 40 mg oral tablet (20 sources) HMG-CoA Reductase Inhibitor Start: 07-05-2022 End: 01-29-2025 take 1 tablet by mouth once daily Atorvastatin 40 mg tablet Discontinued 40 mg PO DAILY October 03, 2022 1:00am November 06, 2022 11:16am Comment on above: Take 40 mg by mouth once daily. azithromycin 250 mg oral tablet (2 sources) Macrolide Antimicrobial Start: 06-09-2024 End: 07-28-2024 Azithromycin 250 mg tablet Discontinued 0 PO .COMPLEX 6 0 June 09, 2024 12:00am July 28, 2024 11:14am For 250 mg dose pack: take 500 mg today (day 1), then 250 mg for 4 days (days 2-5) PO baclofen 5 mg oral tablet (20 sources) gamma-Aminobutyric Acid-ergic Agonist Start: 11-16-2022 End: 11-21-2022 take 1 tablet by mouth once daily Baclofen 5 mg tablet Discontinued 5 mg PO DAILY November 16, 2022 1:53pm November 21, 2022 3:59pm Start: 10-03-2022 End: 01-29-2025 take 1 tablet by mouth three times daily Baclofen 5 mg tablet Discontinued 5 mg PO THREE TIMES A DAY 30 0 October 03, 2022 3:36pm November 16, 2022 1:54pm Start: 07-26-2022 End: 01-29-2025 take 1 tablet by mouth three times daily Baclofen 10 mg tablet Discontinued 10 mg PO THREE TIMES A DAY October 03, 2022 1:00am October 03, 2022 3:38pm Comment on above: Take 10 mg by mouth three times daily. breath-actuated 120 actuat beclomethasone dipropionate 0.08 mg/actuat metered dose inhaler (8 sources) Corticosteroid Start: 018 End: 018 take 80 ug by inhalation every twelve hours Beclomethasone Dipropionate (Qvar Redihaler) 80 mcg/actuation HFA aerosol breath activated Discontinued 2 NMA INHALATION Q12H 10.6 February 15, 2018 12:00am March 14, 2018 9:24am Start: 02-15-2018 End: 03-14-2018 take 1 puff(s) by inhalation every twelve hours Beclomethasone Dipropionate (Qvar Redihaler) 80 mcg/actuation HFA aerosol breath activated Discontinued 2 PUFF INHALATION Q12H 10.6 February 15, 2018 12:00am March 14, 2018 9:24am Calcium Carbonate / vitamin D3 (20 sources) take 1 tablet by mouth once daily CALCIUM CARBONATE/VITAMIN D3 (VITAMIN D-3 ORAL) Take 1 tablet by mouth once daily. 0 Active Comment on above: Take 1 tablet by miladys th once daily. CALCIUM CARBONATE-VITAMIN D3 ORAL (2 sources) End: take 1 tablet by mouth once daily CALCIUM CARBONATE-VITAMIN D3 ORAL Take 1 tablet by mouth once daily. 01/29/2025 Discontinued (Therapy completed) take 1 tablet by mouth once ronnie y CALCIUM CARBONATE-VITAMIN D3 ORAL Take 1 tablet by mouth once daily. Active carbamide peroxide 65 mg/ml otic solution (2 sources) Start: 07-24-2022 End: 01-29-2025 carbamide peroxide (Ear Drops, carbamide peroxide,) 6.5 % otic solution Administer 10 drops into each ear twice a day. In the AM and nightly 07/24/2022 01/29/2025 Discontinued (Therapy completed) cephalexin 250 mg oral capsule (8 sources) Cephalosporin Antibacterial Start: 10-31-2023 End: 11-07-2023 take 1 capsule by mouth once daily Cephalexin 250 mg capsule Discontinued 250 mg PO daily October 31, 2023 12:00am November 07, 2023 9:47am Start: 05-21-2023 End: 01-29-2025 take 1 capsule by mouth three times daily Cephalexin 500 mg capsule Discontinued 500 mg PO THREE TIMES A DAY 0 October 31, 2023 12:00am February 20, 2024 1:01pm chlorthalidone 25 mg oral tablet (20 sources) Thiazide-like Diuretic End: 01-29-2025 take 1 tablet by mouth once daily chlorthalidone (Hygroton) 25 mg tablet Take 1 tablet (25 mg) by mouth once daily. 01/29/2025 Discontinued (Therapy completed) Comment on above: Take 25 mg by mouth once daily. 200 ml ciprofloxacin 2 mg/ml injection (11 sources) Quinolone Antimicrobial Start: 01-29-2025 End: 01-30-2025 400 mg, intravenous, at 200 mL/hr, Administer over 60 Minutes, Once, On Marcela 01/29/25 at 2225, For 1 dose, premix bag, Dosing of this medication varies based on severity of illness. Does this patient have sepsis or concern for sepsis (probable or documented infection plus systemic manifestations of infection)? No, Suspected Indication (Select all that apply): Abdominal Infection, Type of Therapy: Empiric, Type of infection: Community-Acquired, Indications: Abdominal Infection Start: 01-07-2022 End: 01-12-2022 take 1 tablet by mouth every twelve hours Ciprofloxacin Hcl 500 mg tablet Discontinued 500 mg PO Q12H 10 5 0 January 07, 2022 12:00am January 11, 2022 12:00am January 12, 2022 12:03am Start: 06-06-2017 End: 06-09-2017 take 1 tablet by mouth twice daily CIPROFLOXACIN HCL 500 MG TABS One tablet by mouth twice daily CIPROFLOXACIN HCL [id number] Ami Morrison NP dexamethasone 0.001 mg/mg / neomycin 0.0035 mg/mg / polymyxin b 10 unt/mg ophthalmic ointment (2 sources) Aminoglycoside Antibacterial, Polymyxin-class Antibacterial, Corticosteroid Start: 03-01-2023 End: 01-29-2025 neomycin-polymyxin B-dexameth (Polydex) 3.5 mg/g-10,000 unit/g-0.1 % ointment ophthalmic ointment Apply to both eyes. 03/01/2023 01/29/2025 Discontinued (Therapy completed) doxycycline hyclate 100 mg oral tablet (4 sources) Tetracycline-class Drug Start: 09-27-2023 End: 10-31-2023 take 1 tablet by mouth twice daily Doxycycline Hyclate 100 mg tablet Discontinued 100 mg PO TWICE A DAY 10 September 27, 2023 1:00am October 31, 2023 10:26am fexofenadine hydrochloride 180 mg oral tablet (4 sources) Histamine-1 Receptor Antagonist Start: 07-26-2023 End: 07-28-2024 take 1 tablet by mouth once daily Fexofenadine (Gail Allergy) 180 mg tablet Discontinued 180 mg PO DAILY July 26, 2023 1:00am July 28, 2024 11:14am fluticasone propionate 0.05 mg/actuat metered dose nasal spray (20 sources) Corticosteroid Start: 10-03-2022 End: 11-21-2022 Fluticasone Propionate 50 mcg/actuation spray,suspension Discontinued 2 NMA INTRANASAL DAILY 16 5 November 06, 2022 11:13am November 21, 2022 3:59pm Start: 10-03-2022 End: 11-21-2022 Fluticasone Propionate Disco ntinued 2 SPRAY INTRANASAL DAILY November 06, 2022 11:13am November 21, 2022 3:59pm Start: 07-24-2022 End: 01-29-2025 take 1 spray(s) nasal route twice daily fluticasone (Flonase) 50 mcg/actuation nasal spray Administer 1 spray into each nostril twice a day. 07/24/2022 01/29/2025 Discontinued (Therapy completed) Start: 02-15-2018 End: 03-14-2018 Fluticasone Propionate (Flov ent Hfa) 220 mcg/actuation HFA aerosol inhaler Discontinued 1 NMA INHALATION TWICE A DAY 07 25February 15, 2018 12:00am March 14, 2018 9:24am Start: 02-15-2018 End: 03-14-2018 take 1 puff(s) by inhalation twice daily Fluticasone Propionate (Flovent Hfa) 220 mcg/actuation HFA aerosol inhaler Discontinued 1 PUFF INHALATION TWICE A DAY February 15, 2018 12:00am March 14, 2018 9:24am Start: 02-07-2018 End: 03-14-2018 take 200 ug by inhalation once daily Fluticasone Furoate (Arnuity Ellipta) 200 mcg/actuation blister with device Discontinued 1 INH INHALATION daily February 07, 2018 9:06am March 14, 2018 9:24am administer at approximately the same time(s) each day Start: 02-07-2018 End: 07-01-2018 Fluticasone Propionate (Flon ase Allergy Relief) 50 mcg/actuation spray,suspension Discontinued 1 NMA INTRANASAL daily as needed February 07, 2018 12:00am July 01, 2018 3:53pm Start: 02-07-2018 End: 03-14-2018 take 200 ug by inhalation once daily Fluticasone Furoate (Arnuity Ellipta) 200 mcg/actuation blister with device Discontinued 1 NMA INHALATION daily 16 02February 07, 2018 12:00am March 14, 2018 9:24am administer at approximately the same time(s) each day Start: 02-07-2018 End: 03-14-2018 take 200 ug by inhalation once daily Fluticasone Furoate (Arnuity Ellipta) 200 mcg/actuation blister with device Discontinued 1 NMA INHALATION daily February 07, 2018 12:00am March 14, 2018 9:24am administer at approximately the same time(s) each day Start: 02-07-2018 End: 07-01-2018 Fluticasone Propionate (Flon ase Allergy Relief) 50 mcg/actuation spray,suspension Discontinued 1 SPRAY INTRANASAL daily February 07, 2018 12:00am July 01, 2018 3:53pm Start: 02-07-2018 End: 03-14-2018 take 200 ug by inhalation once daily Fluticasone Furoate (Arnuity Ellipta) 200 mcg/actuation blister with device Discontinued 1 INH INHALATION daily February 07, 2018 12:00am March 14, 2018 9:24am administer at approximately the same time(s) each day Start: 02-07-2018 End: 03-14-2018 take 200 ug by inhalation once daily Fluticasone Furoate (Arnuity Ellipta) 200 mcg/actuation blister with device Discontinued 1 INH INHALATION daily February 06, 2018 11:00pm March 14, 2018 8:24am administer at approximately the same time(s) each day Start: 10-12-2016 End: 02-07-2018 Fluticasone Propionate 1 INH ALER inhaler Discontinued 1 NMA INHALATION NEEDED as needed for Asthma October 12, 2016 1:00am February 07, 2018 8:56am Start: 10-12-2016 End: 02-07-2018 Fluticasone Propionate Disco ntinued 1 PUFF INHALATION NEEDED October 12, 2016 1:00am February 07, 2018 8:56am Fluticasone Prop ionate 50 MCG/ACT Nasal Suspension Quantity: 0 Refills: 0 Ordered: 01-Dec-2022 DO Active take 44 ug by inhala tion every twelve hours as needed FLUTICASONE PROPIONATE (FLOVENT INHALATION) Inhale 44 mcg as instructed twice daily as needed. 1 puff 0 Active Comment on above: Inhale 44 mcg as ins tructed twice daily as needed. 1 puff Use 1 [place] in each nostril twice daily. 30 actuat fluticasone furoate 0.2 mg/actuat / vilanterol 0.025 mg/actuat dry powder inhaler (20 sources) Corticosteroid, beta2-Adrenergic Agonist Start: 07-26-2023 End: 01-24-2024 Fluticasone Furoate-Vilanterol (Breo Ellipta) 200-25 mcg/dose blister with device Discontinued 1 NMA INHALATION daily 3 July 26, 2023 6:04pm January 24, 2024 3:25pm after inhalation, rinse mouth with water and spit out; do not swallow Start: 07-26-2023 Fluticasone Fu roate-Vilanterol (Breo Ellipta) 200-25 mcg/dose blister with device Active 1 INH INHALATION daily July 26, 2023 6:04pm after inhalation, rinse mouth with water and spit out; do not swallow Start: 01-24-2023 End: 01-29-2025 Breo Ellipta 200-25 mcg/dose inhaler Inhale. 01/24/2023 01/29/2025 Discontinued (Therapy completed) Start: 01-24-2023 End: 07-26-2023 Fluticasone Furoate-Vilanter ol (Breo Ellipta) 200-25 mcg/dose blister with device Discontinued 1 NMA INHALATION daily 3 January 24, 2023 11:37am July 26, 2023 6:04pm after inhalation, rinse mouth with water and spit out; do not swallow Start: 01-24-2023 End: 07-26-2023 Fluticasone Furoate-Vilanter ol (Breo Ellipta) 200-25 mcg/dose blister with device Discontinued 1 NMA INHALATION daily January 24, 2023 11:37am July 26, 2023 6:04pm after inhalation, rinse mouth with water and spit out; do not swallow Start: 01-24-2023 End: 07-26-2023 Fluticasone Furoate-Vilanter ol (Breo Ellipta) 200-25 mcg/dose blister with device Discontinued 1 INH INHALATION daily January 24, 2023 11:37am July 26, 2023 6:04pm after inhalation, rinse mouth with water and spit out; do not swallow Start: 01-24-2023 End: 07-26-2023 Fluticasone Furoate-Vilanter ol (Breo Ellipta) 200-25 mcg/dose blister with device Discontinued 1 INH INHALATION daily January 24, 2023 10:37am July 26, 2023 5:04pm after inhalation, rinse mouth with water and spit out; do not swallow Start: 01-24-2023 Fluticasone Fu roate-Vilanterol (Breo Ellipta) 200-25 mcg/dose blister with device Active 1 INH INHALATION daily January 24, 2023 11:37am after inhalation, rinse mouth with water and spit out; do not swallow Start: 09-17-2020 End: 01-24-2023 Fluticasone Furoate-Vilanter ol (Breo Ellipta) 200-25 mcg/dose blister with device Discontinued 1 NMA INHALATION daily 3 September 17, 2020 11:50am January 24, 2023 11:39am after inhalation, rinse mouth with water and spit out; do not swallow Start: 09-17-2020 End: 01-24-2023 Fluticasone Furoate-Vilanter ol (Breo Ellipta) 200-25 mcg/dose blister with device Discontinued 1 NMA INHALATION daily September 17, 2020 11:50am January 24, 2023 11:39am after inhalation, rinse mouth with water and spit out; do not swallow Start: 09-17-2020 End: 01-24-2023 Fluticasone Furoate-Vilanter ol (Breo Ellipta) 200-25 mcg/dose blister with device Discontinued 1 INH INHALATION daily September 17, 2020 10:50am January 24, 2023 10:39am after inhalation, rinse mouth with water and spit out; do not swallow Start: 09-17-2020 End: 01-24-2023 Fluticasone Furoate-Vilanter ol (Breo Ellipta) 200-25 mcg/dose blister with device Discontinued 1 INH INHALATION daily September 17, 2020 11:50am January 24, 2023 11:39am after inhalation, rinse mouth with water and spit out; do not swallow Start: 09-17-2020 Fluticasone Fu roate-Vilanterol (Breo Ellipta) 200-25 mcg/dose blister with device Active 1 INH INHALATION daily September 17, 2020 10:50am after inhalation, rinse mouth with water and spit out; do not swallow Start: 09-17-2020 Fluticasone Fu roate-Vilanterol (Breo Ellipta) 200-25 mcg/dose blister with device Active 1 INH INHALATION daily September 17, 2020 11:50am after inhalation, rinse mouth with water and spit out; do not swallow Start: 06-16-2020 End: 09-17-2020 Fluticasone Furoate-Vilanter ol (Breo Ellipta) 200-25 mcg/dose blister with device Discontinued 1 NMA INHALATION daily 3 June 16, 2020 9:38am September 17, 2020 11:50am after inhalation, rinse mouth with water and spit out; do not swallow Start: 06-16-2020 End: 09-17-2020 Fluticasone Furoate-Vilanter ol (Breo Ellipta) 200-25 mcg/dose blister with device Discontinued 1 NMA INHALATION daily June 16, 2020 9:38am September 17, 2020 11:50am after inhalation, rinse mouth with water and spit out; do not swallow Start: 06-16-2020 End: 09-17-2020 Fluticasone Furoate-Vilanter ol (Breo Ellipta) 200-25 mcg/dose blister with device Discontinued 1 INH INHALATION daily June 16, 2020 8:38am September 17, 2020 10:50am after inhalation, rinse mouth with water and spit out; do not swallow Start: 06-16-2020 End: 09-17-2020 Fluticasone Furoate-Vilanter ol (Breo Ellipta) 200-25 mcg/dose blister with device Discontinued 1 INH INHALATION daily June 16, 2020 9:38am September 17, 2020 11:50am after inhalation, rinse mouth with water and spit out; do not swallow Start: 11-18-2019 End: 06-16-2020 Fluticasone Furoate-Vilanter ol (Breo Ellipta) 200-25 mcg/dose blister with device Discontinued 1 INH INHALATION daily November 18, 2019 8:18am June 16, 2020 9:38am after inhalation, rinse mouth with water and spit out; do not swallow Start: 11-18-2019 End: 06-16-2020 Fluticasone Furoate-Vilanter ol (Breo Ellipta) 200-25 mcg/dose blister with device Discontinued 1 NMA INHALATION daily 3 November 18, 2019 12:00am June 16, 2020 9:38am after inhalation, rinse mouth with water and spit out; do not swallow Start: 11-18-2019 End: 06-16-2020 Fluticasone Furoate-Vilanter ol (Breo Ellipta) 200-25 mcg/dose blister with device Discontinued 1 NMA INHALATION daily November 18, 2019 12:00am June 16, 2020 9:38am after inhalation, rinse mouth with water and spit out; do not swallow Start: 11-18-2019 End: 06-16-2020 Fluticasone Furoate-Vilanter ol (Breo Ellipta) 200-25 mcg/dose blister with device Discontinued 1 INH INHALATION daily November 18, 2019 12:00am June 16, 2020 9:38am after inhalation, rinse mouth with water and spit out; do not swallow Start: 11-18-2019 End: 06-16-2020 Fluticasone Furoate-Vilanter ol (Breo Ellipta) 200-25 mcg/dose blister with device Discontinued 1 INH INHALATION daily November 17, 2019 11:00pm June 16, 2020 8:38am after inhalation, rinse mouth with water and spit out; do not swallow Start: 09-26-2019 End: 10-21-2019 Fluticasone Furoate-Vilanter ol (Breo Ellipta) 200-25 mcg/dose blister with device Discontinued 1 NMA INHALATION DAILY 08 25September 26, 2019 12:48pm October 21, 2019 10:03am Start: 09-26-2019 End: 10-21-2019 Fluticasone Furoate-Vilanter ol (Breo Ellipta) 200-25 mcg/dose blister with device Discontinued 1 NMA INHALATION DAILY September 26, 2019 12:48pm October 21, 2019 10:03am Start: 09-26-2019 End: 10-21-2019 Fluticasone Furoate-Vilanter ol (Breo Ellipta) 200-25 mcg/dose blister with device Discontinued 1 INH INHALATION DAILY September 26, 2019 11:48am October 21, 2019 9:03am Start: 09-26-2019 End: 10-21-2019 Fluticasone Furoate-Vilanter ol (Breo Ellipta) 200-25 mcg/dose blister with device Discontinued 1 INH INHALATION DAILY September 26, 2019 12:48pm October 21, 2019 10:03am Start: 09-24-2019 End: 09-26-2019 Fluticasone Furoate-Vilanter ol (Breo Ellipta) 200-25 mcg/dose blister with device Discontinued 1 NMA INHALATION DAILY 1 September 24, 2019 1:00am September 26, 2019 12:49pm Start: 09-24-2019 End: 09-26-2019 Fluticasone Furoate-Vilanter ol (Breo Ellipta) 200-25 mcg/dose blister with device Discontinued 1 INH INHALATION DAILY September 24, 2019 1:00am September 26, 2019 12:49pm End: 01-29-2025 take 1 puff(s) by inhalation once daily fluticasone furoate-vilanteroL (Breo Ellipta) 100-25 mcg/dose inhaler Inhale 1 puff once daily. 01/29/2025 Discontinued (Therapy completed) take 1 puff(s) by in halation once daily Breo Ellipta 100 mcg-25 mcg/inh inhalation powder ; 1 puff(s) inhaled once a day Quantity: 0 Refills: 0 Ordered: 04-Jul-2022 Samra Fuentes Generic Substitution Allowed gabapentin 100 mg oral capsule (6 sources) Anti-epileptic Agent Start: 2022 End: 01-29-2025 take 1 capsule by mouth every eight hours as needed gabapentin (Neurontin) 100 mg capsule Take 1 capsule (100 mg) by mouth every 8 hours if needed. (L UE pain ). 1-3 capsules 2022 01/29/2025 Discontinued (Therapy completed) Start: 2022 take 1 capsule by [facility] every eight hours as needed gabapentin (NEURONTIN) 100 mg capsule Take 100 mg by mouth three times daily as needed (L UE pain ). 1-3 capsules 0 2022 Active Comment on above: Take 100 mg by mouth three times daily as needed (L UE pain ). 1-3 capsules hydroCHLOROthiazide 25 mg oral tablet (20 sources) Thiazide Diuretic Start : 10-12 End: 01-29 take 1 tablet by mouth once daily Hydrochlorothiazide 25 MG tablet Discontinued 25 mg PO DAILY October 12, 2016 1:00am October 21, 2019 10:03am Comment on above: Take 25 mg by mouth once daily. iohexol (OMNIPaque) 350 mg iodine/mL solution 69 mL (1 source) Start : 01-29 End: 01-29 69 mL, intravenous, Once in imaging, Starting on Marcela 01/29/25 at 2156, For 1 dose ketotifen 0.25 mg/ml ophthalmic solution (1 source) Histamine-1 Receptor Inhibitor Start : 01-30 End: 01-30 1 drop, Both Eyes, 2 times daily, First dose on Sun01/30/25 at 0030 loratadine 10 mg oral tablet (20 sources) Start : 01-07 End: 01-29 take 1 tablet by mouth once daily Loratadine 10 MG tablet Discontinued 10 mg PO DAILY October 12, 2016 1:00am July 01, 2018 3:53pm Comment on above: Take 1 tablet by miladys th once daily. LORazepam 1 mg oral tablet (3 sources) Benzodiazepine Start : 09-29 LORazepam 1 MG Oral Tablet TAKE 1 TABLET 1 HOUR BEFORE MRI. MAY REPEAT ONCE 15 MINUTES BEFORE MRI. Quantity: 2 Refills: 0 Ordered: 29-Sep-2022 Issac Owens MD Start : 29-Sep-2022 Active meclizine hydrochloride 12.5 mg oral tablet (2 sources) Antiemetic Start : 07-24 End: 01-29 take 1 tablet by mouth every six hours meclizine (Antivert) 12.5 mg tablet Take 1 tablet (12.5 mg) by mouth every 6 hours. 07/24/2022 01/29/2025 Discontinued (Therapy completed) methylPREDNISolone 4 mg oral tablet (2 sources) Corticosteroid Start : 06-09 End: 07-28 take 1 tablet by mouth once Methylprednisolone (Medrol (Hany)) 4 mg tablets,dose pack Discontinued 0 PO per package directions June 09, 2024 12:00am July 28, 2024 11:14am PO PER PKG DIR montelukast 10 mg oral tablet (8 sources) Leukotriene Receptor Antagonist Start : 02-07 End: 07-01 take 1 tablet by mouth once daily in the evening Montelukast 10 mg tablet Discontinued 10 mg PO EVERY EVENING 30 February 07, 2018 12:00am July 01, 2018 3:53pm nitrofurantoin, macrocrystals 25 mg / nitrofurantoin, monohydrate 75 mg oral capsule (8 sources) Start : 04-18 MACROBID 100 MG CAPS NITROFURANTOIN MONOHYD MACRO [id number] Ami Morrison AGRONOMY LOCATION MANAGER Start: 04-18-2017 MACROBID 100 M G CAPS NITROFURANTOIN MONOHYD MACRO [id number] Ami Morrison AGRONOMY LOCATION MANAGER nitrofurantoin, macrocrystals 25 mg / nitrofurantoin, monohydrate 75 mg oral capsule (3 sources) Nitrofuran Antibacterial Start: 04-18-2017 MACROBID 100 MG CAPS NITROFURANTOIN MONOHYD MACRO [id number] Ami Morrison AGRONOMY LOCATION MANAGER POTASSIUM CHLORIDE, BULK, MISC (20 sources) End: 01-29-2025 POTASSIUM CHLORIDE, BULK, MISC 10 mEq once daily. 01/29/2025 Discontinued (Therapy completed) POTASSIUM CHLORI DE, BULK, MISC 10 mEq once daily. Active POTASSIUM CHLORI DE, BULK, MISC 10 mEq. 10 mEq daily 0 Active Comment on above: 10 mEq. 10 mEq daily quinapril 10 mg oral tablet (20 sources) Angiotensin Converting Enzyme Inhibitor Start: End: 3 take 4 tablets by mouth once daily Quinapril 10 mg tablet Discontinued 40 mg PO DAILY October 13, 2021 11:05am October 03, 2022 2:38pm Start: 10-13-2021 End: 10-03-2022 take 40 mg by mouth once daily Quinapril Discontinued 40 MG PO DAILY October 13, 2021 11:05am October 03, 2022 2:38pm Start: 07-19-2016 End: 01-29-2025 take 1 tablet by mouth once daily Quinapril 10 MG tablet Discontinued 10 mg PO DAILY October 12, 2016 1:00am October 13, 2021 11:06am End: 01-29-2025 take 1 tablet by mouth once daily quinapril (Accupril) 40 mg tablet Take 1 tablet (40 mg) by mouth once daily. 01/29/2025 Discontinued (Therapy completed) Comment on above: Take 10 mg by mouth once daily. rosuvastatin calcium 20 mg oral tablet (20 sources) HMG-CoA Reductase Inhibitor Start: 3 End: take 1 tablet by mouth once daily Rosuvastatin 20 mg tablet Discontinued 20 mg PO DAILY 90 July 21, 2024 10:58am July 28, 2024 11:15am Start: 11-06-2022 End: 11-21-2022 take 1 tablet by mouth once daily Rosuvastatin 20 mg tablet Discontinued 20 mg PO DAILY 30 5 November 06, 2022 12:00am November 21, 2022 3:59pm Rosuvastatin [place] 20 MG Oral Tablet Quantity: 0 Refills: 0 Ordered: 01-Dec-2022 DO Active 1000 ml sodium chloride 9 mg/ml injection (2 sources) Start: 01-29-2025 End: 01-31-2025 take 100 mL intravenously every hour 100 mL/hr, intravenous, Continuous, Starting on Marcela 01/29/25 at 2315, For 1 day sulfamethoxazole 800 mg / trimethoprim 160 mg oral tablet (17 sources) Dihydrofolate Reductase Inhibitor Antibacterial, Sulfonamide Antimicrobial Start: 08-30-2018 End: 09-02-2018 Sulfamethoxazole -Trimethoprim (Bactrim Ds) 800-160 mg tablet Discontinued 1 {tbl} PO TWICE A DAY 6 3 0 August 30, 2018 1:00am September 01, 2018 1:00am September 02, 2018 1:08am Start: 04-27-2017 take 1 tablet by miladys th twice daily BACTRIM DS 800-160 MG TABS One tablet by mouth twice daily SULFAMETHOXAZOLE-TRIMETHOPRIM [id number] Ami Morrison NP Start: 04-27-2017 take 1 tablet by miladys th twice daily BACTRIM DS 800-160 MG TABS One tablet by mouth twice daily SULFAMETHOXAZOLE-TRIMETHOPRIM [id number] Laura Singh MD VITAMIN E (11 sources) Start: 07-19-2016 VITAMIN E 400 UNIT TABS VITAMIN E [id number] Zurdo Gilman Start: 07-19-2016 VITAMIN E 400 UNIT TABS VITAMIN E [id number] Zurdo Gilman Start: 07-19-2016 VITAMIN E 400 UNIT TABS VITAMIN E [id number] Zurdo Gilman valACYclovir 1000 mg oral tablet (14 sources) Herpesvirus Nucleoside Analog DNA Polymerase Inhibitor, Herpes Simplex Virus Nucleoside Analog DNA Polymerase Inhibitor, Herpes Zoster Virus Nucleoside Analog DNA Polymerase Inhibitor Start: 10-31-2023 End: 11-07-2023 Valacyclovir (Valtrex) 1 gram tablet Discontinued 1000 mg PO THREE TIMES A DAY October 31, 2023 12:00am November 07, 2023 9:47am Start: 04-10-2023 take 0.5 tablet by m outh once daily as needed valACYclovir (Valtrex) 1 gram tablet Take 0.5 tablets (500 mg) by mouth once daily as needed (cold sores). 04/10/2023 Active Start: 04-10-2023 valACYclovir ( Valtrex) 1 gram tablet Take by mouth. 04/10/2023 Active Start: 04-10-2023 End: 07-26-2023 Valacyclovir 1 gram tablet A ctive 2000 mg PO TWICE A DAY as needed for cold sores 4 July 26, 2023 6:04pm Start: 04-10-2023 End: 07-26-2023 take 2000 mg by mouth twice daily Valacyclovir Active 2000 MG PO TWICE A DAY July 26, 2023 6:04pm vancomycin (Vancocin) 0.75 g in dextrose 5% 250 mL IV (1 source) Start: 01-30-2025 End: 01-30-2025 take 750 mg intravenously every twelve hours 0.75 g (750 mg), intravenous, at 353.3 mL/hr, Administer over 45 Minutes, Every 12 hours, First dose on Sun01/30/25 at 1330, Dosing of this medication varies based on severity of illness. Does this patient have sepsis or concern for sepsis (probable or documented infection plus systemic manifestations of infection)? Yes, Suspected Indication (Select all that apply): Abdominal Infection, Type of Therapy: Empiric, Type of infection: Community-Acquired, Indications: Abdominal Infection vancomycin (Vancocin) in dextrose 5% IV 1250 mg/250 mL - Omnicell Override Pull (1 source) Start: 01-30-2025 End: 01-30-2025 Starting on Sun01/30/25 at 0131, For 1 dose, Created by cabinet override Vial-Bag System Problems Active Problems Problem Classification Problem Date Documented Da te Episodic/Chronic Acute cerebrovascular disease (20 sources) Nontraumatic intracerebral hemorrhage, unspecified; Translations: [Stroke of uncertain pathology] Onset: 2 07-04-2022 Chronic Comment on above: STROKE Administrative/social admission (1 source) Persons encountering health services in other specified circumstances; Translations: [Other reasons for seeking consultation] 10-03-2022 Episodic Anxiety disorders (20 sources) Anxiety; Translations: [Anxiety disorder, unspecified] Onset: 2 12-14-2006 Chronic Asthma (20 sources) Asthma; Translations: [Unspecified asthma, uncomplicated] Onset: 2 02-23-2016 Chronic Diabetes mellitus without complication (17 sources) Prediabetes; Translations: [Prediabetes] Onset: 5 09-13-2022 Episodic Disorders of lipid metabolism (5 sources) Hyperlipidemia, unspecified; Translations: [Dyslipidemia] Onset: 2 05-29-2023 Chronic Esophageal disorders (20 sources) Gastroesophageal reflux disease; Translations: [Gastro-esophageal reflux disease without esophagitis] Onset: 2 06-30-2008 Chronic Essential hypertension (20 sources) Hypertensive disorder; Translations: [Essential (primary) hypertension] Onset: 2 12-14-2006 Chronic Gastrointestinal hemorrhage (2 sources) Rectal hemorrhage; Translations: [Hemorrhage of anus and rectum] 02-11-2025 Episodic Late effects of cerebrovascular disease (10 sources) Acquired dysarthria; Translations: [Late effects of cerebrovascular disease, dysarthria] Onset: 3 06-07-2023 Chronic Melanomas of skin (10 sources) Malignant melanoma of scalp; Translations: [Malignant melanoma of scalp and neck] 11-21-2022 Chronic Menopausal disorders (11 sources) Atrophic vaginitis; Translations: [Postmenopausal atrophic vaginitis] Onset: 7 04-18-2017 Chronic Mood disorders (14 sources) Depressive disorder; Translations: [Depression] Onset: 3 12-27-2017 Chronic Mood disorders (3 sources) Mood disorders; Translations: [Depression, unspecified] Onset: 2 Neoplasms of unspecified nature or uncertain behavior (12 sources) Neoplasm of unspecified behavior of brain; Translations: [Neoplasm of brain] Onset: 3 Chronic Nutritional deficiencies (20 sources) Vitamin D deficiency; Translations: [Vitamin D deficiency, unspecified] Onset: 9 07-29-2009 Chronic Nutritional deficiencies (2 sources) Vitamin deficiency; Translations: [Vitamin deficiency, unspecified] Onset: 5 02-18-2025 Episodic Osteoarthritis (20 sources) Osteoarthritis of knee; Translations: [Osteoarthritis of knee, unspecified] Onset: 5 03-07-2016 Chronic Other aftercare (1 source) Other alf (current) drug therapy; Translations: [Other alf (current) drug therapy] Onset: 2 Episodic Other and unspecified benign neoplasm (1 source) Benign neoplasm of cerebral meninges; Translations: [Benign neoplasm of cerebral meninges] Onset: 3 Chronic Other bone disease and musculoskeletal deformities (5 sources) Other specified disorders of bone density and structure, unspecified site; Translations: [Disorder of bone and cartilage, unspecified] 01-24-2023 Episodic Other bone disease and musculoskeletal deformities (1 source) Osteopenia; Translations: [Other specified disorders of bone density and structure, unspecified site] 02-18-2025 Episodic Other circulatory disease (4 sources) History of hemorrhagic cerebrovascular accident without residual deficits; Translations: [Personal history of transient ischemic attack (TIA), and cerebral infarction without residual deficits] 05-29-2023 Episodic Other connective tissue disease (1 source) Presence of artificial knee joint, bilateral; Translations: [Presence of artificial knee joint, bilateral] Onset: 2 Chronic Other connective tissue disease (3 sources) Facial weakness; Translations: [Facial weakness] Onset: 2 Episodic Other connective tissue disease (3 sources) Shoulder girdle weakness; Translations: [Other symptoms referable to joint, shoulder region] Episodic Other connective tissue disease (3 sources) Weakness of left hand; Translations: [Muscle weakness (generalized)] Episodic Other connective tissue disease (3 sources) Muscle weakness of limb; Translations: [Other musculoskeletal symptoms referable to limbs] Episodic Other connective tissue disease (1 source) Other symptoms and signs involving the musculoskeletal system; Translations: [Oth symptoms and signs involving the musculoskeletal system] Onset: 3 Episodic Other connective tissue disease (2 sources) Adhesive capsulitis of shoulder; Translations: [Adhesive capsulitis of left shoulder] 11-06-2022 Episodic Other connective tissue disease (2 sources) Adhesive capsulitis of left shoulder; Translations: [Adhesive capsulitis of shoulder] 11-06-2022 Episodic Other connective tissue disease (4 sources) Adhesive capsulitis of left shoulder; Translations: [Adhesive capsulitis of left shoulder] 11-06-2022 Episodic Other eye disorders (1 source) Unspecified disorder of eyelid; Translations: [Unspecified disorder of eyelid] 02-27-2023 Episodic Other gastrointestinal disorders (2 sources) Slow transit constipation; Translations: [Slow transit constipation] 07-26-2023 Episodic Other nervous system disorders (11 sources) Carpal tunnel syndrome; Translations: [Carpal tunnel syndrome, unspecified upper limb] Onset: 6 07-19-2016 Chronic Other nervous system disorders (1 source) Compression of brain; Translations: [Compression of brain] Onset: 2 Chronic Other nervous system disorders (1 source) Cerebral edema; Translations: [Cerebral edema] Onset: 2 Chronic Other nervous system disorders (6 sources) Mass lesion of brain; Translations: [Other conditions of brain] Onset: 3 06-07-2023 Chronic Other nervous system disorders (6 sources) Other specified disorders of brain; Translations: [Other conditions of brain] Onset: 3 11-16-2022 Chronic Other nervous system disorders (1 source) Dysarthria and anarthria; Translations: [Dysarthria and anarthria] Onset: 2 Episodic Other nervous system disorders (1 source) Unspecified abnormalities of gait and mobility; Translations: [Unspecified abnormalities of gait and mobility] Onset: 3 Episodic Other nervous system disorders (4 sources) Intracranial mass; Translations: [Intracranial space-occupying lesion found on diagnostic imaging of central nervous system] 05-29-2023 Episodic Comment on above: Left posterior fossa /cerebellar mass noted on MRI. Follows with neurosurgery. Other non-traumatic joint disorders (6 sources) Wrist stiff; Translations: [Stiffness of left wrist, not elsewhere classified] 11-06-2022 Episodic Other non-traumatic joint disorders (12 sources) Pain in left shoulder; Translations: [Left shoulder pain] 11-06-2022 Episodic Other nutritional; endocrine; and metabolic disorders (14 sources) Obesity; Translations: [Obesity, unspecified] Onset: 3 02-07-2018 Chronic Other nutritional; endocrine; and metabolic disorders (6 sources) High density lipoprotein above reference range; Translations: [Other symptoms involving cardiovascular system] Onset: 3 06-07-2023 Chronic Other nutritional; endocrine; and metabolic disorders (1 source) Other lipoprotein metabolism disorders; Translations: [Other lipoprotein metabolism disorders] Onset: 3 Chronic Other nutritional; endocrine; and metabolic disorders (1 source) Obesity, unspecified; Translations: [Obesity, unspecified] Onset: 3 Chronic Other upper respiratory disease (8 sources) Seasonal allergy; Translations: [Other seasonal allergic rhinitis] 12-17-2019 Chronic Other upper respiratory infections (7 sources) Postnasal drip; Translations: [Postnasal drip] 10-03-2022 Episodic Paralysis (20 sources) Hemiplegia, unspecified affecting left nondominant side; Translations: [Left hemiplegia] Onset: 2 07-05-2022 Chronic Residual codes; unclassified (2 sources) Other general symptoms and signs; Translations: [Other general symptoms and signs] Onset: 3 Episodic Skin and subcutaneous tissue infections (5 sources) Erysipelas; Translations: [Erysipelas] 11-07-2023 Episodic Thyroid disorders (20 sources) Multinodular goiter; Translations: [Nontoxic multinodular goiter] Onset: 2 12-21-2006 Chronic Unclassified (8 sources) Gynecologic examination ; Translations: [Encounter for gynecological examination (general) (routine) with abnormal findings] Onset: 7 04-18-2017 Unclassified (2 sources) Contact with and (suspected) exposure to COVID-19; Translations: [Contact with and (suspected) exposure to COVID-19] Onset: 2 Unclassified (2 sources) Primary hypertension 07-04-2022 Unclassified (1 source) HOSP DSC FROM [facility],R BASAL GANGLIA BLEED LEADING TO LEFT HEMIPLEGIA, REPEAT MRI 07-06-2022 Comment on above: HOSP DSC FROM [facility], R BASAL GANGLIA BLEED LEADING TO LEFT HEMIPLEGIA, REPEAT MRI Unclassified (1 source) Left hemiplegia 07-05-2022 Urinary tract infections (20 sources) Recurrent urinary tract infection; Translations: [Urinary tract infectious disease] Onset: 04-18-2017 Episodic Past or Other Problems Problem Classification Problem Date Documented Date Episodic/Chronic Abdominal hernia (20 sources) Diaphragmatic hernia; Translations: [Diaphragmatic hernia without obstruction or gangrene] Onset: 06-07-2023 12-14-2006 Episodic Abdominal pain (3 sources) Abdominal pain; Translations: [Unspecified abdominal pain] Onset: 01-29-2025 Resolved: 01-31-2025 01-31-2025 Episodic Heart valve disorders (6 sources) Heart murmur; Translations: [Cardiac murmur, unspecified] Onset: 09-11-2024 05-29-2023 Episodic Immunizations and screening for infectious disease (3 sources) Encounter for immunization; Translations: [Need for prophylactic vaccination and inoculation against unspecified single disease] Onset: 07-28-2024 07-26-2023 Episodic Malaise and fatigue (7 sources) Hemiparesis; Translations: [Muscle weakness (generalized)] Onset: 07-08-2022 06-07-2023 Episodic Noninfectious gastroenteritis (6 sources) Colitis; Translations: [Noninfective gastroenteritis and colitis, unspecified] Onset: 01-29-2025 Resolved: 01-31-2025 01-29-2025 Episodic Other connective tissue disease (3 sources) Neurological symptom; Translations: [Unspecified symptoms and signs involving the nervous system] Onset: 06-07-2023 06-07-2023 Episodic Other lower respiratory disease (1 source) Wheezing; Translations: [Wheezing] Onset: 07-01-2024 Episodic Other nervous system disorders (6 sources) Abnormal gait; Translations: [Abnormality of gait] Onset: 06-07-2023 06-07-2023 Episodic Other non-traumatic joint disorders (11 sources) Pain in wrist; Translations: [Pain in unspecified wrist] Onset: 07-19-2016 07-26-2016 Episodic Other screening for suspected conditions (not mental disorders or infectious disease) (3 sources) Patient encounter status; Translations: [Encounter for screening for malignant neoplasm of colon] Onset: 09-25-2024 07-23-2024 Episodic Sprains and strains (11 sources) Shoulder strain; Translations: [Sprains and strains of unspecified site of shoulder and upper arm] Onset: 06-07-2023 06-07-2023 Episodic Unclassified (11 sources) Asymptomatic menopausal state; Translations: [Asymptomatic menopausal state] Onset: 04-18-2017 04-18-2017 Episodic Viral infection (20 sources) Herpes simplex; Translations: [Herpesviral infection, unspecified] Onset: 12-14-2006 12-14-2006 Episodic Results Test Name Value Interpretation Reference Range Facility MR TRANSFER OF OUTSIDE FILMS on 02-18-2025 MR TRANSFER OF OUTSIDE FILMS Outside images for comparison or treatment purposes, not interpreted by Radiologists. [facility] Study Interpretation of outs aishwarya studyon 02-18-2025 Outside images for comparison or treatment purposes, not interpreted by Radiologists. IMAGING Internal Medicine Office Vis iton 02-17-2025 Internal Medicine Office Visit [facility] [address] [place] [address] [place] [address] OFFICE VISIT Date of Service: 02/18/25 MR#: [id number] Acct: [id number] Name: YANELI BASURTO Rep #: [id number] : 1950 Provider: Dr. 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 Required: No Accompanied by: Self Is patient in pain?: No Allergies sulfamethoxazole (From Bactrim) Allergy (Mild, Verified 02/18/25 10:03) Itching trimethoprim (From Bactrim) Allergy (Mild, Verified 02/18/25 10:03) Itching nitrofurantoin (From Macrobid) Allergy (Verified 02/18/25 10:03) Itching Medications ???Medication ???Instructions ???Recorded ???Confirmed ???Type cholecalciferol (vitamin D3) 125 125 mcg PO DAILY 10/03/22 02/18/25 History mcg (5,000 unit) capsule omeprazole 20 mg capsule,delayed 20 mg PO PRN 10/03/22 02/18/25 His tory release valacyclovir 1 gram tablet 2,000 mg (2 x 1 gram) PO BID PRN 1 09/26/22 02/18/25 Rx cold sores #4 tabs albuterol sulfate 90 mcg/actuation 2 puff inhalation Q6H PRN 02/18/25 Rx aerosol inhaler shortness of breath or wheezing #8.5 grams carvedilol 6.25 mg tablet 6.25 mg PO BID #180 TABLETS 02/18/25 Rx lisinopril 40 mg tablet 40 mg PO DAILY #90 TABLETS 5 02/18/25 Rx fluticasone 500 mcg-salmeterol 50 1 inh inhalation BID 30 days #60 ea 02/18/25 02/18/25 Rx mcg/dose blistr powdr for inhalation (Wixela Inhub) lovastatin 10 mg tablet 10 mg PO QPM #90 tabs 02/18/2510/14 Rx venlafaxine 37.5 mg 37.5 mg PO QHS #90 caps 02/18/25 0 02/18/25 Rx capsule,extended release 24 hr venlafaxine 75 mg capsule,extended 75 mg PO DAILY #90 caps 02/18/25 02/18/25 Rx release 24 hr Have you fallen in the past year?: No Nurse's Note: was at hospital for colitis about 3 weeks ago ([facility] Medical History Asthmatic bronchitis with exacerbation Thyroid nodule Erysipelas Herpes simplex Intracranial mass 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 Dyslipidemia Murmur, cardiac Herpes simplex type 1 infection Acute maxillary sinusitis, unspecified Melanoma of scalp Brain tumor Stiffness of left wrist joint Adhesive capsulitis of left shoulder Left shoulder pain Vitamin D deficiency Osteopenia Carpal tunnel syndrome History of cataract CVA (cerebral vascular accident) Prediabetes Seasonal allergies Asthma Anxiety Obesity Multiple thyroid nodules GERD (gastroesophageal reflux disease) Depression Hypertension Surgical History History of carpal tunnel surgery History of bilateral knee replacement History of section Family History Father Heart disease Mother Cancer Pancreatic Grandmother CVA (cerebral vascular accident) Grandfather Uremic acidosis Brother Hypertension Diabetes Sister Hypertension Breast cancer Social History adopted: No household members: spouse, family and children number of children: 2 current occupational status: employed 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 1. Little interest or pleasure in doing things: not at all 2. Feeling down, depressed, or hopeless: not at all 3. Trouble falling or staying asleep, or sleeping too much: not at all 4. Feeling tired or having little energy: more than half the days 5. Poor appetite or overeating: not at all 6. Feeling bad about yourself - or that you are a failure or have let yourself and your family down: not at all 7. Trouble concentrating on things, such as reading the newspaper or watching television: not at all 8. Moving or speaking so slowly that other peop (more content not included)... Normal [facility] MR BRAIN W AND WO CONTRASTon 02-15-2025 MR BRAIN W AND WO CONTRAST EXAMINATION: MRI Brain Without and with IV Contrast TECHNIQUE: Multiplanar, multisequence MRI of the brain without and with IV contrast. COMPARISON: 01/16/2024 HISTORY: WHAT SYMPTOMS ARE YOU EXPERIENCING?; MENINGIOMA. FOLLOW UP. +9 ml [id number];OTHER REASON FINDINGS: INTRACRANIAL STRUCTURES/VENTRICLES : There is no acute infarct. No midline shift. No evidence of an acute intracranial hemorrhage. Ventricular caliber is unchanged from the prior . Patchy white matter FLAIR hyperintensities are nonspecific but may represent moderate chronic microvascular angiopathy and appears similar to the prior. The sellar/suprasellar regions appear unremarkable. The normal signal voids within the major intracranial vessels appear maintained. An avidly enhancing extra-axial mass in the left posterior fossa measures 3.0 x 2.7 x 2.9 cm, not significantly changed from the prior examination without significant surrounding edema. A T2 hyperintense focus within the right basal ganglia extending into the right periventricular white matter has peripheral T2 hypointensity and associated susceptibility artifact. There is intrinsic T1 hyperintensity and minimal central enhancement, not significantly changed from the prior. ORBITS: The visualized portion of the orbits demonstrate no acute abnormality. SINUSES: The visualized paranasal sinuses and mastoid air cells demonstrate no acute abnormality. BONES/SOFT TISSUES: The bone marrow signal intensity appears normal. The soft tissues demonstrate no acute abnormality. IMPRESSION: 1. No significant change in the left posterior fossa meningioma since the prior exam. 2. No significant change in the right basal ganglia abnormality, perhaps a prior hemorrhage and/or cavernous malformation. Electronically signed by: Jose Martin West MD 02/15/2025 07:00 PM EDT Technologist: Dictated By: JOSE MARTIN WEST MD Signed By: JOSE MARTIN WEST MD Signed Out: 02/15/25 19:00:38 Normal [facility] Gastroenterology Visit Repor ton 02-11-2025 Gastroenterology Visit Report [facility]astroenterology [address] [place] [address] OFFICE VISIT Date of Service: 02/09/25 MR#: [id number] Acct: [id number] Name: YANELI BASURTO Rep #: [id number] : 1950 Provider: TONY candelaria Age/Sex: 74/F Location: [facility] [place] Status: Signed Intake Vital Signs 07/28/24 10:17 Height 5 ft 3 in Intake Visit Reasons: [facility] LARGE COLON Chief Complaint: Blood in stools Allergies sulfamethoxazole (From Bactrim) Allergy (Mild, Verified 07/28/24 10:12) Itching trimethoprim (From Bactrim) Allergy (Mild, Verified 07/28/24 10:12) Itching nitrofurantoin (From Macrobid) Allergy (Verified 07/28/24 10:12) Itching Have you fallen in the past year?: No PFS Medical History Asthmatic bronchitis with exacerbation Thyroid nodule Erysipelas Herpes simplex Intracranial mass 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 Dyslipidemia Murmur, cardiac Herpes simplex type 1 infection Acute maxillary sinusitis, unspecified Melanoma of scalp Brain tumor Stiffness of left wrist joint Adhesive capsulitis of left shoulder Left shoulder pain Vitamin D deficiency Osteopenia Carpal tunnel syndrome History of cataract CVA (cerebral vascular accident) Prediabetes Seasonal allergies Asthma Anxiety Obesity Multiple thyroid nodules GERD (gastroesophageal reflux disease) Depression Hypertension Surgical History History of carpal tunnel surgery History of bilateral knee replacement History of section Family History Father Heart disease Mother Cancer Pancreatic Grandmother CVA (cerebral vascular accident) Grandfather Uremic acidosis Brother Hypertension Diabetes Sister Hypertension Breast cancer Social History adopted: No household members: spouse, family and children number of children: 2 current occupational status: employed 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 pets and animals: Yes (4) pets and animals: dog(s) Smoking Status: Never smoker Electronic Cigarette Use: not used second hand exposure: No alcohol intake: never substance use type: does not use caffeine: Yes (1) Type: coffee Number of servings: 1 what type of physical activity do you participate in: none seatbelt use: always do you feel safe at home: Yes additional social history: [facility] Chief Complaint: Blood in stools Details: YANELI BASURTO, is a 74 F who presents to the office today for establishment with [facility] regarding concerns for black or bloody stools. She provided the medical summary originating from [facility] ER on 01.29.25. She had presented there for black or bloody stools and complaints of abdominal pain with accompanied low grade fever. She had been constipated for 3 to 4 days, which is her normal, she denied straining, had a formed stool followed by several instances of diarrhea which then turned bloody. She had reported about 10 episodes of bloody stools with lower abdominal discomfort. She did not take any laxatives or stool softeners. She reports her last colonoscopy was in 2014 without incidental findings. 01.29.25 labs: W-14.9, hgb-13.9, hct-42.9, plt-291, lipase and lactate normal, stool OB- positive CT abd/pelvis w/IV con: Moderate bowel wall thickening left upper descending colon and a portion of transverse colon. Etiology such as ischemic colitis, infectious or inflammatory colitis would be within differential. Hepatic steatosis. Right ovarian cyst. She states that she was admitted to [facility] for monitoring and IV antibiotic therapy for colitis. She was discharged home on levofloxacin 500mg PO daily for 7 days and metronidazole 500mg PO 3 times daily for 10 days. She finished the Flagyl yesterday morning. She denies difficulty chewing and swallowing, cough, throat clearing, sinus drainage, heartburn and reflux are controlled by famotidine and omeprazole daily, nausea, abdominal pain, diarrhea, hematochezia, and melena now. ROS Const Constitutional: Positive for fatigue and decreased energy; No chills, fever(s) or weight change Eyes Eyes: No change in vision ENT ENT: No abnormal hearing or difficulty swallowing Resp Respiratory: No cough Cardio Cardiology: Positive for leg pain with exertion; No chest pain at rest or chest pain with exertion Gastro GI: Positive for abdominal pain, constipation and Blood in stool; No belching, bloating, change in bowel habits, change in stool character, coffee ground emesis, cramping, diarrhea, heartburn, difficulty swallowing, feeling full early, excessive flatu (more content not included)... Normal [facility] Basic metabolic 2000 panelon 01-31-2025 Anion gap [Moles/Vol] 12 mmol/L 10 - 20 mmol/L [facility] Calcium [Mass/Vol] 8.7 mg/dL 8.6 - 10. 3 mg/dL [facility] Chloride [Moles/Vol] 112 mmol/L High 98 - 10 7 mmol/L [facility] CO2 [Moles/Vol] 26 mmol/L 21 - 32 mmol/L [facility] Creatinine [Mass/Vol] 0.96 mg/dL 0.50 - 1.05 mg/dL [facility] GFR/1.73 sq M.predicted among non-blacks MDRD (S/P/Bld) [Vol rate/Area] 62 mL/min/{1.73_m2} - PINF [facility] Comment on above: Calculations of param mated GFR are performed using the 2020 CKD-EPI Study Refit equation without the race variable for the IDMS-Traceable creatinine methods. https://jasn.asnjournals.org/content//ASN.778786 3460 Glucose [Mass/Vol] 123 mg/dL High 74 - 99 mg/dL [facility] Interpretation and review of laboratory results Abnormal [facility] Potassium [Moles/Vol] 4.1 mmol/L 3.5 - 5.3 mmol/L [facility] Sodium [Moles/Vol] 146 mmol/L High 136 - 145 mmol/L [facility] Urea nitrogen [Mass/Vol] 8 mg/dL 6 - 23 mg/dL [facility] Anion gap [Moles/Vol] 12 mmol/L Normal 10-20 [facility] Comment on above: Performed By: #### 5 8077-9 #### HENNA DELONG ([id number]) [facility] ([facility]) [facility] [place] [address] Calcium [Mass/Vol] 8.7 mg/dL Normal 8.6-10.3 [facility] Comment on above: Performed By: #### 5 8077-9 #### HENNA DELONG ([id number]) [facility] ([facility]) [facility] [place] [address] Chloride [Moles/Vol] 112 mmol/L High 98-107 [facility] Comment on above: Performed By: #### 5 8077-9 #### HENNA DELONG ([id number]) [facility] ([facility]) [address] [place] [address] 96458 CO2 [Moles/Vol] 26 mmol/L Normal 21-32 [facility] Comment on above: Performed By: #### 5 8077-9 #### HENNA DELONG ([id number]) [facility] ([facility]) [address] [place] [address] 30764 Creatinine [Mass/Vol] 0.96 mg/dL Normal 0.50-1.05 [facility] Comment on above: Performed By: #### 5 8077-9 #### HENNA DELONG ([id number]) [facility] ([facility]) [address] [place] [address] 75618 Glomerular filtration rate/1.73 sq M.predicted 62 mL/min/1.73m*2 Normal >60 [facility] Comment on above: Result Comment: Calc ulations of estimated GFR are performed using the 2020 CKD-EPI Study Refit equation without the race variable for the IDMS-Traceable creatinine methods. https://jasn.asnjournals.org/content/early//ASN.868910 0761 Performed By: #### 5 8077-9 #### HENNA DELONG ([id number]) [facility] ([facility]) [address] [place] [address] 20489 Glucose [Mass/Vol] 123 mg/dL High 74-99 [facility] Comment on above: Performed By: #### 5 8077-9 #### HENNA DELONG ([id number]) [facility] ([facility]) [address] [place] [address] 83240 Potassium [Moles/Vol] 4.1 mmol/L Normal 3.5-5.3 [facility] Comment on above: Performed By: #### 5 8077-9 #### HENNA DELONG ([id number]) [facility] ([facility]) [address] [place] [address] 85050 Sodium [Moles/Vol] 146 mmol/L High 136-145 [facility] Comment on above: Performed By: #### 5 8077-9 #### HENNA DELONG ([id number]) [facility] ([facility]) [address] [place] [address] Urea nitrogen [Mass/Vol] 8 mg/dL Normal 6-23 [facility] Comment on above: Performed By: #### 5 8077-9 #### HENNA DELONG ([id number]) [facility] ([facility]) [address] [place] [address] CBC panel Auto (Bld)on 01-31 Erythrocyte distribution width (RBC) [Ratio] 12.7 % 11.5 - 14.5 % [facility] Hematocrit (Bld) [Volume fraction] 35.1 % Low 36.0 - 46.0 % [facility] Hemoglobin (Bld) [Mass/Vol] 11.2 g/dL Low 12.0 - 16.0 g/dL [facility] Interpretation and review of laboratory results Abnormal [facility] MCH (RBC) [Entitic mass] 30.4 pg 26.0 - 34.0 pg [facility] MCHC (RBC) [Mass/Vol] 31.9 g/dL Low 32.0 - 36.0 g/dL [facility] MCV (RBC) [Entitic vol] 95 fL 80 - 100 fL [facility] Nucleated RBC/100 WBC (Bld) [Ratio] 0 % [facility] Platelets (Bld) [#/Vol] 210 10*3/uL [facility] RBC (Bld) [#/Vol] 3.69 10*6/uL Low [facility] WBC (Bld) [#/Vol] 12 10*3/uL High [facility] Erythrocyte distribution width (RBC) [Ratio] 12.7 % Normal 11.5-14.5 [facility] Comment on above: Performed By: #### 5 8077-9 #### HENNA DELONG ([id number]) [facility] ([facility]) [address] [place] [id number] Hematocrit (Bld) [Volume fraction] 35.1 % Low 36.0-46.0 [facility] Comment on above: Performed By: #### 5 8077-9 #### HENNA DELONG ([id number]) [facility] ([facility]) [facility] [place] [address] Hemoglobin (Bld) [Mass/Vol] 11.2 g/dL Low 12.0-16.0 [facility] Comment on above: Performed By: #### 5 8077-9 #### HENNA DELONG ([id number]) [facility] ([facility]) [address] [place] [address] 94403 MCH (RBC) [Entitic mass] 30.4 pg Normal 26.0-34.0 [facility] Comment on above: Performed By: #### 5 8077-9 #### HENNA DELONG ([id number]) [facility] ([facility]) [address] [place] [address] 58570 MCHC (RBC) [Mass/Vol] 31.9 g/dL Low 32.0-36.0 [facility] Comment on above: Performed By: #### 5 8077-9 #### HENNA DELONG ([id number]) [facility] ([facility]) [address] [place] [address] 43253 MCV (RBC) [Entitic vol] 95 fL Normal 80-100 [facility] Comment on above: Performed By: #### 5 8077-9 #### HENNA DELONG ([id number]) [facility] ([facility]) [address] [place] [address] 90595 Nucleated RBC/100 WBC (Bld) [Ratio] 0.0 /100 WBCs Normal 0.0-0.0 [facility] Comment on above: Performed By: #### 5 8077-9 #### HENNA DELONG ([id number]) [facility] ([facility]) [address] [place] [address] 96205 Platelets (Bld) [#/Vol] 210 x10*3/uL Normal 150-450 [facility] Comment on above: Performed By: #### 5 8077-9 #### HENNA DELONG ([id number]) [facility] ([facility]) [address] [place] [address] 14023 RBC (Bld) [#/Vol] 3.69 x10*6/uL Low 4.00-5.20 [facility] Comment on above: Performed By: #### 5 8077-9 #### HENNA DELONG ([id number]) [facility] ([facility]) [address] [place] [address] WBC (Bld) [#/Vol] 12.0 x10*3/uL High 4.4-11.3 [facility] Comment on above: Performed By: #### 5 8077-9 #### HENNA DELONG ([id number]) [facility] ([facility]) [address] [place] [address] 65559 Magnesiumon 01-31-2025 Magnesium [Mass/Vol] 1.8 mg/dL 1.60 - 2.40 mg/dL [facility] Magnesium [Mass/Vol] 1.80 mg/dL Normal 1.60-2.40 [facility] Comment on above: Performed By: #### 5 8077-9 #### HENNA DELONG ([id number]) [facility] ([facility]) [address] [place] [address] 60280 Magnesium [Mass/Vol]on 01-31 Interpretation and review of laboratory results Normal [facility] Vancomycinon 01-31-2025 Vancomycin [Mass/Vol] 9.1 ug/mL 5.0 - 20.0 ug/mL [facility] Vancomycin [Mass/Vol] 9.1 ug/mL Normal 5.0-20.0 [facility] Comment on above: Order Comment: Vanco mycin levels can be monitored according to area under the curve (AUC) or concentration (ug/mL). The preferred monitoring strategy is determined by the patient's renal function and indication for therapy.For AUC monitoring, a random vancomycin level should be interpreted in the context of AUC rather than the concentration at a single point in time.For concentration monitoring, a trough concentration drawn immediately prior to the next dose is preferred.Therapeutic ranges using concentration-guided results:Peak (all ages): 30.0-40.0 ug/mLTrough (all ages): 10.0-20.0 ug/mL Performed By: #### 5 8077-9 #### HENNA DELONG ([id number]) [facility] ([facility]) [address] [place] [address] 67656 Vancomycin [Mass/Vol]on 01-18 Interpretation and review of laboratory results [facility] Vancomycin levels can be monitored according to area under the curve (AUC) or concentration (ug/mL). The preferred monitoring strategy is determined by the patient's renal function and indication for therapy. For AUC monitoring, a random vancomycin level should be interpreted in the context of AUC rather than the concentration at a single point in time. For concentration monitoring, a trough concentration drawn immediately prior to the next dose is preferred. Therapeutic ranges using concentration-guided results: Peak (all ages): 30.0-40.0 ug/mL Trough (all ages): 10.0-20.0 ug/mL [facility] Bacteria identifiedon 2024 Bacteria identified Cx Nom (Bld) Test: Blood Culture Specimen Source: Peripheral Venipuncture Specimen Type: Blood culture Specimen Date: 01/30/2025145 Result Date: 02/03/2025 1100 Result Status: Final result Abnormal: No Resulting Lab: [facility] [address] [place] [address] CULTURE No growth at 4 days - FINAL REPORT [facility] Comment on above: Performed By: #### 5 8077-9 #### HENNA DELONG ([id number]) [facility] ([facility]) [address] [place], [place] [id number] Bacteria identified Cx Nom (Bld) Test: Blood Culture Specimen Source: Peripheral Venipuncture Specimen Type: Blood culture Specimen Date: 01/30/2025142 Result Date: 02/03/2025 1100 Result Status: Final result Abnormal: No Resulting Lab: [facility] [address] [place] [address] CULTURE No growth at 4 days - FINAL REPORT [facility] Comment on above: Performed By: #### 5 8077-9 #### HENNA DELONG ([id number]) [facility] ([facility]) [address] [place] [address] CBC panel Auto (Bld)on 01-30 Erythrocyte distribution width (RBC) [Ratio] 12.7 % 11.5 - 14.5 % [facility] Hematocrit (Bld) [Volume fraction] 36.6 % 36.0 - 46.0 % [facility] Hemoglobin (Bld) [Mass/Vol] 12 g/dL 12.0 - 16.0 g/dL [facility] Interpretation and review of laboratory results Abnormal [facility] MCH (RBC) [Entitic mass] 30.8 pg 26.0 - 34.0 pg [facility] MCHC (RBC) [Mass/Vol] 32.8 g/dL 32.0 - 36.0 g/dL [facility] MCV (RBC) [Entitic vol] 94 fL 80 - 100 fL [facility] Nucleated RBC/100 WBC (Bld) [Ratio] 0 % [facility] Platelets (Bld) [#/Vol] 226 10*3/uL [facility] RBC (Bld) [#/Vol] 3.89 10*6/uL Low [facility] WBC (Bld) [#/Vol] 14.1 10*3/uL High [facility] Erythrocyte distribution width (RBC) [Ratio] 12.7 % Normal 11.5-14.5 [facility] Comment on above: Performed By: #### 5 8410-2 #### HENAN DELONG ([id number]) [facility] ([facility]) [address] [place] [address] Hematocrit (Bld) [Volume fraction] 36.6 % Normal 36.0-46.0 [facility] Comment on above: Performed By: #### 5 8410-2 #### HENNA DELONG ([id number]) [facility] ([facility]) [address] [place] [address] Hemoglobin (Bld) [Mass/Vol] 12.0 g/dL Normal 12.0-16.0 [facility] Comment on above: Performed By: #### 5 8410-2 #### HENNA DELONG ([id number]) [facility] ([facility]) [address] [place] [address] 13647 MCH (RBC) [Entitic mass] 30.8 pg Normal 26.0-34.0 [facility] Comment on above: Performed By: #### 5 8410-2 #### HENNA DELONG ([id number]) [facility] ([facility]) [address] [place] [address] 09613 MCHC (RBC) [Mass/Vol] 32.8 g/dL Normal 32.0-36.0 [facility] Comment on above: Performed By: #### 5 8410-2 #### HENNA DELONG ([id number]) [facility] ([facility]) [address] [place] [address] 50661 MCV (RBC) [Entitic vol] 94 fL Normal 80-100 [facility] Comment on above: Performed By: #### 5 8410-2 #### HENNA DELONG ([id number]) [facility] ([facility]) [address] [place] [address] 81089 Nucleated RBC/100 WBC (Bld) [Ratio] 0.0 /100 WBCs Normal 0.0-0.0 [facility] Comment on above: Performed By: #### 5 8410-2 #### HENNA DELONG ([id number]) [facility] ([facility]) [address] [place] [address] 98101 Platelets (Bld) [#/Vol] 226 x10*3/uL Normal 150-450 [facility] Comment on above: Performed By: #### 5 8410-2 #### HENNA DELONG ([id number]) [facility] ([facility]) [address] [place] [address] 06485 RBC (Bld) [#/Vol] 3.89 x10*6/uL Low 4.00-5.20 [facility] Comment on above: Performed By: #### 5 8410-2 #### HENNA DELONG ([id number]) [facility] ([facility]) [address] [place] [address] WBC (Bld) [#/Vol] 14.1 x10*3/uL High 4.4-11.3 [facility] Comment on above: Performed By: #### 5 8410-2 #### HENNA DELONG ([id number]) [facility] ([facility]) [address] [place] [id number] Comprehensive metabolic 2000 panelon 01-30-2025 Albumin BCP dye [Mass/Vol] 3.5 g/dL 3.4 - 5.0 g/dL [facility] ALP [Catalytic activity/Vol] 65 U/L 33 - 136 U/L [facility] ALT With P-5'-P [Catalytic activity/Vol] 21 U/L 7 - 45 U/L [facility] Comment on above: Patients treated wit h Sulfasalazine may generate falsely decreased results for ALT. Anion gap [Moles/Vol] 11 mmol/L 10 - 20 mmol/L [facility] AST With P-5'-P [Catalytic activity/Vol] 25 U/L 9 - 39 U/L [facility] Bilirubin [Mass/Vol] 0.9 mg/dL 0.0 - 1 .2 mg/dL [facility] Calcium [Mass/Vol] 8.7 mg/dL 8.6 - 10. 3 mg/dL [facility] Chloride [Moles/Vol] 105 mmol/L 98 - 10 7 mmol/L [facility] CO2 [Moles/Vol] 24 mmol/L 21 - 32 mmol/L [facility] Creatinine [Mass/Vol] 0.87 mg/dL 0.50 - 1.05 mg/dL [facility] GFR/1.73 sq M.predicted among non-blacks MDRD (S/P/Bld) [Vol rate/Area] 70 mL/min/{1.73_m2} - PINF [facility] Comment on above: Calculations of param mated GFR are performed using the 2020 CKD-EPI Study Refit equation without the race variable for the IDMS-Traceable creatinine methods. https://jasn.asnjournals.org/content/early//ASN.432548 5936 Glucose [Mass/Vol] 137 mg/dL High 74 - 99 mg/dL [facility] Interpretation and review of laboratory results Abnormal [facility] Potassium [Moles/Vol] 3.8 mmol/L 3.5 - 5.3 mmol/L [facility] Protein [Mass/Vol] 5.8 g/dL Low 6.4 - 8.2 g/dL [facility] Sodium [Moles/Vol] 136 mmol/L 136 - 145 mmol/L [facility] Urea nitrogen [Mass/Vol] 14 mg/dL 6 - 23 mg/dL [facility] Albumin BCP dye [Mass/Vol] 3.5 g/dL Normal 3.4-5.0 [facility] Comment on above: Performed By: #### 5 8077-9 #### HENNA DELONG ([id number]) [facility] ([facility]) [address] [place] [address] 96098 ALP [Catalytic activity/Vol] 65 U/L Normal 33-136 [facility] Comment on above: Performed By: #### 5 8077-9 #### HENNA DELONG ([id number]) [facility] ([facility]) [address] [place] [address] 05474 ALT With P-5'-P [Catalytic activity/Vol] 21 U/L Normal 7-45 [facility] Comment on above: Result Comment: Yesenia ents treated with Sulfasalazine may generate falsely decreased results for ALT. Performed By: #### 5 8077-9 #### HENNA DELONG ([id number]) [facility] ([facility]) [facility] [place] [address] Anion gap [Moles/Vol] 11 mmol/L Normal 10-20 [facility] Comment on above: Performed By: #### 5 8077-9 #### HENNA DELONG ([id number]) [facility] ([facility]) [address] [place] [address] 88853 AST With P-5'-P [Catalytic activity/Vol] 25 U/L Normal 9-39 [facility] Comment on above: Performed By: #### 5 8077-9 #### HENNA DELONG ([id number]) [facility] ([facility]) [address] [place] [address] Bilirubin [Mass/Vol] 0.9 mg/dL Normal 0.0-1.2 [facility] Comment on above: Performed By: #### 5 8077-9 #### HENNA DELONG ([id number]) [facility] ([facility]) [address] [place] [address] 66400 Calcium [Mass/Vol] 8.7 mg/dL Normal 8.6-10.3 [facility] Comment on above: Performed By: #### 5 8077-9 #### HENNA DELONG ([id number]) [facility] ([facility]) [address] [place] [address] 01863 Chloride [Moles/Vol] 105 mmol/L Normal 98-107 [facility] Comment on above: Performed By: #### 5 8077-9 #### HENNA DELONG ([id number]) [facility] ([facility]) [address] [place] [address] CO2 [Moles/Vol] 24 mmol/L Normal 21-32 [facility] Comment on above: Performed By: #### 5 8077-9 #### HENNA DELONG ([id number]) [facility] ([facility]) [address] [place] [address] 93989 Creatinine [Mass/Vol] 0.87 mg/dL Normal 0.50-1.05 [facility] Comment on above: Performed By: #### 5 8077-9 #### HENNA DELONG ([id number]) [facility] ([facility]) [address] [place] [address] 26744 Glomerular filtration rate/1.73 sq M.predicted 70 mL/min/1.73m*2 Normal >60 [facility] Comment on above: Result Comment: Calc ulations of estimated GFR are performed using the 2020 CKD-EPI Study Refit equation without the race variable for the IDMS-Traceable creatinine methods. https://jasn.asnjournals.org/content//ASN.774980 2084 Performed By: #### 5 8077-9 #### HENNA DELONG ([id number]) [facility] ([facility]) [address] [place] [address] [phone] Glucose [Mass/Vol] 137 mg/dL High 74-99 [facility] Comment on above: Performed By: #### 5 8077-9 #### HENNA DELONG ([id number]) [facility] ([facility]) [address] [place] [address] 22384 Potassium [Moles/Vol] 3.8 mmol/L Normal 3.5-5.3 [facility] Comment on above: Performed By: #### 5 8077-9 #### HENNA DELONG ([id number]) [facility] ([facility]) [address] [place] [address] 59508 Protein [Mass/Vol] 5.8 g/dL Low 6.4-8.2 [facility] Comment on above: Performed By: #### 5 8077-9 #### HENNA DELONG ([id number]) [facility] ([facility]) [address] [place] [address] 67570 Sodium [Moles/Vol] 136 mmol/L Normal 136-145 [facility] Comment on above: Performed By: #### 5 8077-9 #### HENNA DELONG ([id number]) [facility] ([facility]) [address] [place] [address] 52872 Urea nitrogen [Mass/Vol] 14 mg/dL Normal 6-23 [facility] Comment on above: Performed By: #### 5 8077-9 #### HENNA DELONG ([id number]) [facility] ([facility]) [address] [place] [address] 75347 Gastrointestinal pathogens i dentified CHEN+probe Nom (Stl)Ordered By: Trini Moralez on 01-30-2025 Campylobacter Group Not detected Not Detected [facility] E. coli stx1 gene CHEN+probe Ql (Stl) Not detected Not Detected, [facility] E. coli stx2 gene CHEN+probe Ql (Stl) Not detected Not Detected, [facility] Interpretation and review of laboratory results Normal [facility] Norovirus genogroup I and II RNA CHEN+probe Nom (Stl) Not detected Not Detected [facility] Rotavirus RNA CHEN+probe Nom (Stl) Not detected Not Detected [facility] Salmonella species Not detected Not Detected [facility] Shigella sp DNA CHEN+probe Ql (Unsp spec) Not detected Not Detected [facility] Vibrio Group Not detected Not Detected [facility] Y. enterocolitica DNA CHEN+probe Ql (Stl) Not detected Not Detected [facility] Magnesiumon 01-30-2025 Magnesium [Mass/Vol] 1.77 mg/dL 1.60 - 2.40 mg/dL [facility] Magnesium [Mass/Vol] 1.77 mg/dL Normal 1.60-2.40 [facility] Comment on above: Performed By: #### 1 9123-9 #### AGUILLON SINDI ([id number]) [facility] ([facility]) [address] [place] [address] Magnesium [Mass/Vol]on 01-30 Interpretation and review of laboratory results Normal [facility] No Panel Informationon 01-30 [facility] ProcalcitoninOrdered By: Vern Oliver on 01-30-2025 Procalcitonin [Mass/Vol] 0.4 ng/mL High NINF - 0.07 ng/mL [facility] Procalcitoninon 01-30-2025 Procalcitonin [Mass/Vol] 0.40 ng/mL High <=0.07 [facility] Comment on above: Order Comment: Proca lcitonin (PCT) results measured serially canaid in decision-making for antibiotic discontinuation inpatients with suspected or confirmed sepsis in conjunctionwith additional clinical information. Antibioticdiscontinuation may be considered with a change in PCT of>80% from the peak result or when PCT falls below 0.50 ng/mL.Procalcitonin results should not be used in isolation butshould be interpreted in conjunction with additional clinicaland laboratory findings. Procalcitonin results should not beused to guide the initiation of antibiotic therapy.Falsely low PCT values in the presence of bacterial infectionmay occur in early infection, with atypical pathogens,localized infections, and subacute infectious endocarditis.Falsely elevated results outside of severe bacterialinfection/sepsis may be seen in patients with renal failureor insufficiency, severe trauma or breaux, recent majorabdominal/cardiac surgery, acute multi-organ failure, rarelyin patients with medullary thyroid carcinoma and rareneuroendocrine tumors, and non-specific interfering antibodies(heterophile antibodies, rheumatoid factor, human anti-mouseantibodies (HAMA), etc).Performance of the PCT test in pediatric patients (<18yo), women, immunocompromised patients, and patients onimmunomodulatory medications has not been evaluated. Performed By: #### 5 8077-9 #### AGUILLON SINDI ([id number]) [facility] ([facility]) [address] [place] [address] Procalcitonin [Mass/Vol]Orde red By: Chester Oliver on 01-30-2025 Interpretation and review of laboratory results Abnormal [facility] Procalcitonin (PCT) results measured serially can aid in decision-making for antibiotic discontinuation in patients with suspected or confirmed sepsis in conjunction with additional clinical information. Antibiotic discontinuation may be considered with a change in PCT of >80% from the peak result or when PCT falls below 0.50 ng/mL. Procalcitonin results should not be used in isolation but should be interpreted in conjunction with additional clinical and laboratory findings. Procalcitonin results should not be used to guide the initiation of antibiotic therapy. Falsely low PCT values in the presence of bacterial infection may occur in early infection, with atypical pathogens, localized infections, and subacute infectious endocarditis. Falsely elevated results outside of severe bacterial infection/sepsis may be seen in patients with renal failure or insufficiency, severe trauma or breaux, recent major abdominal/cardiac surgery, acute multi-organ failure, rarely in patients with medullary thyroid carcinoma and rare neuroendocrine tumors, and non-specific interfering antibodies (heterophile antibodies, rheumatoid factor, human anti-mouse antibodies (HAMA), etc). Performance of the PCT test in pediatric patients (<18yo), women, immunocompromised patients, and patients on immunomodulatory medications has not been evaluated. [facility] CBC W Auto Differential pane l (Bld)on 01-29-2025 Basophils (Bld) [#/Vol] 0.04 10*3/uL [facility] Basophils/100 WBC (Bld) 0.3 % 0.0 - 2.0 % [facility] Eosinophils (Bld) [#/Vol] 0.03 10*3/uL [facility] Eosinophils/100 WBC (Bld) 0.2 % 0.0 - 6.0 % [facility] Erythrocyte distribution width (RBC) [Ratio] 12.5 % 11.5 - 14.5 % [facility] Hematocrit (Bld) [Volume fraction] 42.9 % 36.0 - 46.0 % [facility] Hemoglobin (Bld) [Mass/Vol] 13.9 g/dL 12.0 - 16.0 g/dL [facility] Immature granulocytes (Bld) [#/Vol] 0.03 10*3/uL [facility] Immature granulocytes/100 WBC (Bld) 0.2 % 0.0 - 0.9 % [facility] Comment on above: Immature Granulocyte Count (IG) includes promyelocytes, myelocytes and metamyelocytes but does not include bands. Percent differential counts (%) should be interpreted in the context of the absolute cell counts (cells/UL). Interpretation and review of laboratory results Abnormal [facility] Lymphocytes (Bld) [#/Vol] 1.42 10*3/uL [facility] Lymphocytes/100 WBC (Bld) 9.6 % 13.0 - 44.0 % [facility] MCH (RBC) [Entitic mass] 29.9 pg 26.0 - 34.0 pg [facility] MCHC (RBC) [Mass/Vol] 32.4 g/dL 32.0 - 36.0 g/dL [facility] MCV (RBC) [Entitic vol] 92 fL 80 - 100 fL [facility] Monocytes (Bld) [#/Vol] 1.05 10*3/uL [facility] Monocytes/100 WBC (Bld) 7.1 % 2.0 - 10.0 % [facility] Neutrophils (Bld) [#/Vol] 12.29 10*3/uL [facility] Comment on above: Percent differential counts (%) should be interpreted in the context of the absolute cell counts (cells/uL). Neutrophils/100 WBC (Bld) 82.6 % 40.0 - 80.0 % [facility] Nucleated RBC/100 WBC (Bld) [Ratio] 0 % [facility] Platelets (Bld) [#/Vol] 291 10*3/uL [facility] RBC (Bld) [#/Vol] 4.65 10*6/uL [facility] WBC (Bld) [#/Vol] 14.9 10*3/uL [facility] Basophils (Bld) [#/Vol] 0.04 x10*3/uL Normal 0.00-0.10 [facility] Comment on above: Performed By: #### 5 7021-8 #### HENNA DELONG ([id number]) [facility] ([facility]) [address] [place] [address] 81466 Basophils/100 WBC (Bld) 0.3 % Normal 0.0-2.0 [facility] Comment on above: Performed By: #### 5 7021-8 #### HENNA DELONG ([id number]) [facility] ([facility]) [address] [place] [address] 99264 Eosinophils (Bld) [#/Vol] 0.03 x10*3/uL Normal 0.00-0.40 [facility] Comment on above: Performed By: #### 5 7021-8 #### HENNA DELONG ([id number]) [facility] ([facility]) [address] [place] [address] 49570 Eosinophils/100 WBC (Bld) 0.2 % Normal 0.0-6.0 [facility] Comment on above: Performed By: #### 5 7021-8 #### HENNA DELONG ([id number]) [facility] ([facility]) [address] [place] [address] 59469 Erythrocyte distribution width (RBC) [Ratio] 12.5 % Normal 11.5-14.5 [facility] Comment on above: Performed By: #### 5 7021-8 #### HENNA DELONG ([id number]) [facility] ([facility]) [address] [place] [address] Hematocrit (Bld) [Volume fraction] 42.9 % Normal 36.0-46.0 [facility] Comment on above: Performed By: #### 5 7021-8 #### HENNA DELONG ([id number]) [facility] ([facility]) [address] [place] [address] [phone] Hemoglobin (Bld) [Mass/Vol] 13.9 g/dL Normal 12.0-16.0 [facility] Comment on above: Performed By: #### 5 7021-8 #### HENNA DELONG ([id number]) [facility] ([facility]) [address] [place] [address] Immature granulocytes (Bld) [#/Vol] 0.03 x10*3/uL Normal 0.00-0.50 [facility] Comment on above: Performed By: #### 5 7021-8 #### HENNA DELONG ([id number]) [facility] ([facility]) [address] [place] [address] [phone] Immature granulocytes/100 WBC (Bld) 0.2 % Normal 0.0-0.9 [facility] Comment on above: Result Comment: Brenda ture Granulocyte Count (IG) includes promyelocytes, myelocytes and metamyelocytes but does not include bands. Percent differential counts (%) should be interpreted in the context of the absolute cell counts (cells/UL). Performed By: #### 5 7021-8 #### HENNA DELONG ([id number]) [facility] ([facility]) [address] [place] [address] 49135 Lymphocytes (Bld) [#/Vol] 1.42 x10*3/uL Normal 0.80-3.00 [facility] Comment on above: Performed By: #### 5 7021-8 #### HENNA DELONG ([id number]) [facility] ([facility]) [address] [place] [address] 07440 Lymphocytes/100 WBC (Bld) 9.6 % Normal 13.0-44.0 [facility] Comment on above: Performed By: #### 5 7021-8 #### HENNA DELONG ([id number]) [facility] ([facility]) [address] [place] [address] 95230 MCH (RBC) [Entitic mass] 29.9 pg Normal 26.0-34.0 [facility] Comment on above: Performed By: #### 5 7021-8 #### HENNA DELONG ([id number]) [facility] ([facility]) [address] [place] [address] 54264 MCHC (RBC) [Mass/Vol] 32.4 g/dL Normal 32.0-36.0 [facility] Comment on above: Performed By: #### 5 7021-8 #### HENNA DELONG ([id number]) [facility] ([facility]) [address] [place] [address] 80589 MCV (RBC) [Entitic vol] 92 fL Normal 80-100 [facility] Comment on above: Performed By: #### 5 7021-8 #### HENNA DELONG ([id number]) [facility] ([facility]) [address] [place] [address] 33457 Monocytes (Bld) [#/Vol] 1.05 x10*3/uL High 0.05-0.80 [facility] Comment on above: Performed By: #### 5 7021-8 #### HENNA DELONG ([id number]) [facility] ([facility]) [address] [place] [address] 53803 Monocytes/100 WBC (Bld) 7.1 % Normal 2.0-10.0 [facility] Comment on above: Performed By: #### 5 7021-8 #### HENNA DELONG ([id number]) [facility] ([facility]) [address] [place] [address] 28687 Neutrophils (Bld) [#/Vol] 12.29 x10*3/uL High 1.60-5.50 [facility] Comment on above: Result Comment: Perc ent differential counts (%) should be interpreted in the context of the absolute cell counts (cells/uL). Performed By: #### 5 7021-8 #### HENNA DELONG ([id number]) [facility] ([facility]) [address] [place] [address] 39062 Neutrophils/100 WBC (Bld) 82.6 % Normal 40.0-80.0 [facility] Comment on above: Performed By: #### 5 7021-8 #### HENNA DELONG ([id number]) [facility] ([facility]) [address] [place] [address] 16787 Nucleated RBC/100 WBC (Bld) [Ratio] 0.0 /100 WBCs Normal 0.0-0.0 [facility] Comment on above: Performed By: #### 5 7021-8 #### HENNA DELONG ([id number]) [facility] ([facility]) [address] [place] [address] 96672 Platelets (Bld) [#/Vol] 291 x10*3/uL Normal 150-450 [facility] Comment on above: Performed By: #### 5 7021-8 #### HENNA DELONG ([id number]) [facility] ([facility]) [address] [place] [address] 99775 RBC (Bld) [#/Vol] 4.65 x10*6/uL Normal 4.00-5.20 [facility] Comment on above: Performed By: #### 5 7021-8 #### HENNA DELONG ([id number]) [facility] ([facility]) [address] [place] [address] 86781 WBC (Bld) [#/Vol] 14.9 x10*3/uL High 4.4-11.3 [facility] Comment on above: Performed By: #### 5 7021-8 #### HENNA DELONG ([id number]) [facility] ([facility]) [address] [place] [address] ABDOMEN PELVIS W IV CONTR Yuliet 01-29-2025 CT ABDOMEN PELVIS W IV CONTRAST STUDY: CT Abdomen and Pelvis with IV Contrast; 01/29/2025 09:43PM INDICATION: Lower abdominal pain, constipation/diarrhea , and bloody stool. COMPARISON: None Available. ACCESSION NUMBER(S): [id number] ORDERING CLINICIAN: JENNIFER ESCALERA TECHNIQUE: CT of the abdomen and pelvis was performed. Contiguous axial images were obtained at 3 mm slice thickness through the abdomen and pelvis. Coronal and sagittal reconstructions at 3 mm slice thickness were performed. Omnipaque 350-69 mL was administered intravenously. FINDINGS: LOWER CHEST: No cardiomegaly. No pericardial effusion. Lung bases are clear. ABDOMEN: LIVER: No hepatomegaly. Smooth surface contour. There is diffuse fatty infiltration of the liver.. BILE DUCTS: No intrahepatic or extrahepatic biliary ductal dilatation. GALLBLADDER: The gallbladder is unremarkable. STOMACH: No abnormalities identified. PANCREAS: No masses or ductal dilatation. SPLEEN: No splenomegaly or focal splenic lesion. ADRENAL GLANDS: No thickening or nodules. KIDNEYS AND URETERS: Kidneys are normal in size and location. No renal or ureteral calculi. 1.6 cm lower pole left renal cyst and a smaller right renal cyst. PELVIS: BLADDER: No abnormalities identified. REPRODUCTIVE ORGANS: There appears to be a 2 cm right ovarian cyst.. BOWEL: Moderate bowel wall thickening is demonstrated of the left upper descending colon and a portion of transverse colon. There is some mild surrounding inflammatory changes. Etiology such as ischemic colitis, infectious or inflammatory colitis would be within differential. VESSELS: No abnormalities identified. Abdominal aorta is normal in caliber. PERITONEUM/RETROPERIT ONEUM/LYMPH NODES: No free fluid. No pneumoperitoneum. No lymphadenopathy. ABDOMINAL WALL: There is a small periumbilical hernia containing fat. SOFT TISSUES: No abnormalities identified. BONES: No acute fracture or aggressive osseous lesion. Degenerative anterolisthesis is demonstrated at L4-L5. IMPRESSION: 1.Moderate bowel wall thickening left upper descending colon and a portion of transverse colon. Etiology such as ischemic colitis, infectious or inflammatory colitis would be within differential. 2.Hepatic steatosis. 3.Right ovarian cyst. Signed by Alie Johns DO [facility] CT Abdomen and Pelvis W cont rast Damir 01-29-2025 1.Moderate bowel wal l thickening left upper descending colon and a portion of transverse colon. Etiology such as ischemic colitis, infectious or inflammatory colitis would be within differential. 2.Hepatic steatosis. 3.Right ovarian cyst. Signed by Alie Johns DO TELERADIOLOGY STUDY: CT Abdomen and Pelvis with IV Contrast; 01/29/2025 09:43PM INDICATION: Lower abdominal pain, constipation/diarrhea , and bloody stool. COMPARISON: None Available. ACCESSION NUMBER(S): [id number] ORDERING CLINICIAN: JENNIFER ESCALERA TECHNIQUE: CT of the abdomen and pelvis was performed. Contiguous axial images were obtained at 3 mm slice thickness through the abdomen and pelvis. Coronal and sagittal reconstructions at 3 mm slice thickness were performed. Omnipaque 350-69 mL was administered intravenously. FINDINGS: LOWER CHEST: No cardiomegaly. No pericardial effusion. Lung bases are clear. ABDOMEN: LIVER: No hepatomegaly. Smooth surface contour. There is diffuse fatty infiltration of the liver.. BILE DUCTS: No intrahepatic or extrahepatic biliary ductal dilatation. GALLBLADDER: The gallbladder is unremarkable. STOMACH: No abnormalities identified. PANCREAS: No masses or ductal dilatation. SPLEEN: No splenomegaly or focal splenic lesion. ADRENAL GLANDS: No thickening or nodules. KIDNEYS AND URETERS: Kidneys are normal in size and location. No renal or ureteral calculi. 1.6 cm lower pole left renal cyst and a smaller right renal cyst. PELVIS: BLADDER: No abnormalities identified. REPRODUCTIVE ORGANS: There appears to be a 2 cm right ovarian cyst.. BOWEL: Moderate bowel wall thickening is demonstrated of the left upper descending colon and a portion of transverse colon. There is some mild surrounding inflammatory changes. Etiology such as ischemic colitis, infectious or inflammatory colitis would be within differential. VESSELS: No abnormalities identified. Abdominal aorta is normal in caliber. PERITONEUM/RETROPERIT ONEUM/LYMPH NODES: No free fluid. No pneumoperitoneum. No lymphadenopathy. ABDOMINAL WALL: There is a small periumbilical hernia containing fat. SOFT TISSUES: No abnormalities identified. BONES: No acute fracture or aggressive osseous lesion. Degenerative anterolisthesis is demonstrated at L4-L5. TELERADIOLOGY Alie Johns D O - 01/29/2025 STUDY: CT Abdomen and Pelvis with IV Contrast; 01/29/2025 09:43PM INDICATION: Lower abdominal pain, constipation/diarrhea , and bloody stool. COMPARISON: None Available. ACCESSION NUMBER(S): [id number] ORDERING CLINICIAN: JENNIFER ESCALERA TECHNIQUE: CT of the abdomen and pelvis was performed. Contiguous axial images were obtained at 3 mm slice thickness through the abdomen and pelvis. Coronal and sagittal reconstructions at 3 mm slice thickness were performed. Omnipaque 350-69 mL was administered intravenously. FINDINGS: LOWER CHEST: No cardiomegaly. No pericardial effusion. Lung bases are clear. ABDOMEN: LIVER: No hepatomegaly. Smooth surface contour. There is diffuse fatty infiltration of the liver.. BILE DUCTS: No intrahepatic or extrahepatic biliary ductal dilatation. GALLBLADDER: The gallbladder is unremarkable. STOMACH: No abnormalities identified. PANCREAS: No masses or ductal dilatation. SPLEEN: No splenomegaly or focal splenic lesion. ADRENAL GLANDS: No thickening or nodules. KIDNEYS AND URETERS: Kidneys are normal in size and location. No renal or ureteral calculi. 1.6 cm lower pole left renal cyst and a smaller right renal cyst. PELVIS: BLADDER: No abnormalities identified. REPRODUCTIVE ORGANS: There appears to be a 2 cm right ovarian cyst.. BOWEL: Moderate bowel wall thickening is demonstrated of the left upper descending colon and a portion of transverse colon. There is some mild surrounding inflammatory changes. Etiology such as ischemic colitis, infectious or inflammatory colitis would be within differential. VESSELS: No abnormalities identified. Abdominal aorta is normal in caliber. PERITONEUM/RETROPERIT ONEUM/LYMPH NODES: No free fluid. No pneumoperitoneum. No lymphadenopathy. ABDOMINAL WALL: There is a small periumbilical hernia containing fat. SOFT TISSUES: No abnormalities identified. BONES: No acute fracture or aggressive osseous lesion. Degenerative anterolisthesis is demonstrated at L4-L5. IMPRESSION: 1.Moderate bowel wall thickening left upper descending colon and a portion of transverse colon. Etiology such as ischemic colitis, infectious or inflammatory colitis would be within differential. 2.Hepatic steatosis. 3.Right ovarian cyst. Signed by Alie Johns, [facility] Work Phone: Radiology Study observation (narrative) [facility] Work Phone: CT Abdomen and Pelvis W cont rast IVOrdered By: Alie Johns on 01-29-2025 [facility] Work Phone: Comprehensive metabolic 2000 panelon 01-29-2025 Albumin BCP dye [Mass/Vol] 4.4 g/dL 3.4 - 5.0 g/dL [facility] ALP [Catalytic activity/Vol] 84 U/L 33 - 136 U/L [facility] ALT With P-5'-P [Catalytic activity/Vol] 26 U/L 7 - 45 U/L [facility] Comment on above: Patients treated wit h Sulfasalazine may generate falsely decreased results for ALT. Anion gap [Moles/Vol] 13 mmol/L 10 - 20 mmol/L [facility] AST With P-5'-P [Catalytic activity/Vol] 29 U/L 9 - 39 U/L [facility] Bilirubin [Mass/Vol] 0.7 mg/dL 0.0 - 1 .2 mg/dL [facility] Calcium [Mass/Vol] 9.9 mg/dL 8.6 - 10. 3 mg/dL [facility] Chloride [Moles/Vol] 102 mmol/L 98 - 10 7 mmol/L [facility] CO2 [Moles/Vol] 25 mmol/L 21 - 32 mmol/L [facility] Creatinine [Mass/Vol] 0.97 mg/dL 0.50 - 1.05 mg/dL [facility] GFR/1.73 sq M.predicted among non-blacks MDRD (S/P/Bld) [Vol rate/Area] 61 mL/min/{1.73_m2} - PINF [facility] Comment on above: Calculations of param mated GFR are performed using the 2020 CKD-EPI Study Refit equation without the race variable for the IDMS-Traceable creatinine methods. https://jasn.asnjournals.org/content//ASN.302903 8284 Glucose [Mass/Vol] 129 mg/dL High 74 - 99 mg/dL [facility] Interpretation and review of laboratory results Abnormal [facility] Potassium [Moles/Vol] 4.2 mmol/L 3.5 - 5.3 mmol/L [facility] Protein [Mass/Vol] 7.3 g/dL 6.4 - 8.2 g/dL [facility] Sodium [Moles/Vol] 136 mmol/L 136 - 145 mmol/L [facility] Urea nitrogen [Mass/Vol] 18 mg/dL 6 - 23 mg/dL [facility] Albumin BCP dye [Mass/Vol] 4.4 g/dL Normal 3.4-5.0 [facility] Comment on above: Performed By: #### 2 4323-8 #### HENNA DELONG ([id number]) [facility] ([facility]) [address] [place] [address] ALP [Catalytic activity/Vol] 84 U/L Normal 33-136 [facility] Comment on above: Performed By: #### 2 432-8 #### HENNA DELONG ([id number]) [facility] [facility]) [address] [place] [address] ALT With P-5'-P [Catalytic activity/Vol] 26 U/L Normal 7-45 [facility] Comment on above: Result Comment: Yesenia ents treated with Sulfasalazine may generate falsely decreased results for ALT. Performed By: #### 2 432-8 #### HENNA DELONG ([id number]) [facility] ([facility]) [address] [place] [address] Anion gap [Moles/Vol] 13 mmol/L Normal 10-20 [facility] Comment on above: Performed By: #### 2 432-8 #### HENNA DELONG ([id number]) [facility] ([facility]) [address] [place] [address] AST With P-5'-P [Catalytic activity/Vol] 29 U/L Normal 9-39 [facility] Comment on above: Performed By: #### 2 4323-8 #### HENNA DELONG ([id number]) [facility] ([facility]) [address] [place] [address] Bilirubin [Mass/Vol] 0.7 mg/dL Normal 0.0-1.2 [facility] Comment on above: Performed By: #### 2 4323-8 #### HENNA DELONG ([id number]) [facility] ([facility]) [address] [place] [address] Calcium [Mass/Vol] 9.9 mg/dL Normal 8.6-10.3 [facility] Comment on above: Performed By: #### 2 4323-8 #### HENNA DELONG ([id number]) [facility] ([facility]) [facility] [place] [address] Chloride [Moles/Vol] 102 mmol/L Normal 98-107 [facility] Comment on above: Performed By: #### 2 4323-8 #### HENNA DELONG ([id number]) [facility] ([facility]) [facility] [place] [address] CO2 [Moles/Vol] 25 mmol/L Normal 21-32 [facility] Comment on above: Performed By: #### 2 4323-8 #### HENNA DELONG ([id number]) [facility] ([facility]) [address] [place] [address] Creatinine [Mass/Vol] 0.97 mg/dL Normal 0.50-1.05 [facility] Comment on above: Performed By: #### 2 4323-8 #### HENNA DELONG ([id number]) [facility] ([facility]) [facility] [place] [address] Glomerular filtration rate/1.73 sq M.predicted 61 mL/min/1.73m*2 Normal >60 [facility] Comment on above: Result Comment: Calc ulations of estimated GFR are performed using the 2020 CKD-EPI Study Refit equation without the race variable for the IDMS-Traceable creatinine methods. https://jasn.asnjournals.org/content/early//ASN.678283 0466 Performed By: #### 2 4323-8 #### HENNA DELONG ([id number]) [facility] ([facility]) [facility] [place] [address] Glucose [Mass/Vol] 129 mg/dL High 74-99 [facility] Comment on above: Performed By: #### 2 4323-8 #### HENNA DELONG ([id number]) [facility] ([facility]) [facility] [place] [address] Potassium [Moles/Vol] 4.2 mmol/L Normal 3.5-5.3 [facility] Comment on above: Performed By: #### 2 4323-8 #### HENNA DELONG ([id number]) [facility] ([facility]) [address] [place] [address] Protein [Mass/Vol] 7.3 g/dL Normal 6.4-8.2 [facility] Comment on above: Performed By: #### 2 4323-8 #### HENNA DELONG ([id number]) [facility] ([facility]) [address] [place] [address] Sodium [Moles/Vol] 136 mmol/L Normal 136-145 [facility] Comment on above: Performed By: #### 2 4323-8 #### HENNA DELONG ([id number]) [facility] ([facility]) [address] [place] [address] Urea nitrogen [Mass/Vol] 18 mg/dL Normal 6-23 [facility] Comment on above: Performed By: #### 2 4323-8 #### HENNA DELONG ([id number]) [facility] ([facility]) [address] [place] [address] Fecal Occult Blood Immunoass ayOrdered By: Noa Topete on 01-29-2025 Lower GI hemoglobin IA Ql (Stl) Positive Abnormal Negative [facility] Gastrointestinal pathogens i dentifiedon 01-29-2025 Gastrointestinal pathogens identified CHEN+probe Nom (Stl) Campylobacter coli+jejuni+upsaliens is DNA Not Detected Salmonella sp DNA Not Detected Shigella sp DNA Not Detected Vibrio cholerae DNA Not Detected Yersinia enterocolitica DNA Not Detected Escherichia coli Stx1 toxin stx1 gene Not Detected Escherichia coli Stx2 toxin stx2 gene Not Detected Norovirus genogroup I AND II RNA Not Detected Rotavirus RNA Not Detected Normal Not Detected [facility] Comment on above: Performed By: #### 5 8077-9 #### HENNA DELONG ([id number]) [facility] ([facility]) [address] [place] [address] Hemoglobin.gastrointestinal. loweron 01-29-2025 Lower GI hemoglobin IA Ql (Stl) Positive Abnormal Negative [facility] Comment on above: Performed By: #### 2 9771-3 #### HENNA DELONG ([id number]) [facility] ([facility]) [facility] [place] [address] Lactateon 01-29-2025 Lactate [Moles/Vol] 1.7 mmol/L 0.4 - 2. 0 mmol/L [facility] Lactate [Moles/Vol] 1.7 mmol/L Normal 0.4-2.0 [facility] Comment on above: Order Comment: Venip uncture immediately after or during the administration of Metamizole may lead to falsely low results. Testing should be performed immediately prior to Metamizole dosing. Performed By: #### 2 524-7 #### HENNA DELONG ([id number]) [facility] ([facility]) [facility] [place] [address] Lactate [Moles/Vol]on 2024 Interpretation and review of laboratory results Normal [facility] Venipuncture immediately after or during the administration of Metamizole may lead to falsely low results. Testing should be performed immediately prior to Metamizole dosing. [facility] Lipaseon 01-29-2025 Lipase [Catalytic activity/Vol] 27 U/L U/L [facility] Lipase [Catalytic activity/V ol]on 01-29-2025 Interpretation and review of laboratory results Normal [facility] Venipuncture immediately after or during the administration of Metamizole may lead to falsely low results. Testing should be performed immediately prior to Metamizole dosing. [facility] Lower GI hemoglobin IA Ql (S tl)Ordered By: Noa Topete on 01-29-2025 Interpretation and review of laboratory results Abnormal [facility] Triacylglycerol lipaseon Lipase [Catalytic activity/Vol] 27 U/L Normal [facility] Comment on above: Order Comment: Venip uncture immediately after or during the administration of Metamizole may lead to falsely low results. Testing should be performed immediately prior to Metamizole dosing. Performed By: #### 3 040-3 #### HENNA DELONG ([id number]) [facility] ([facility]) [address] [place] [address] Urinalysis complete W Reflex Culture panel (U)on 01-29-2025 Appearance (U) Turbid Abnormal Clear [facility] Bilirubin (U) [Mass/Vol] Negative NEGATIVE mg/dL [facility] Color (U) Yellow Light-Yellow, Yellow, Dark-Yellow [facility] Glucose Auto test strip (U) [Mass/Vol] Normal Normal mg/dL [facility] Interpretation and review of laboratory results Abnormal [facility] Ketones (U) [Mass/Vol] Negative NEGATIVE mg/dL [facility] Leukocyte esterase Auto test strip Ql (U) Negative NEGATIVE [facility] Mucus Auto (Urine sed) [#/Area] FEW Reference range not established. /LPF [facility] Nitrite Auto test strip Ql (U) Negative NEGATIVE [facility] pH (U) 6 [pH] 5.0, 5.5, 6.0, 6.5, 7.0, 7.5, 8.0 [facility] Protein (U) [Mass/Vol] 20 (TRACE) NEGATIVE, 10 (TRACE), 20 (TRACE) mg/dL [facility] RBC (U) [#/Vol] Negative NEGATIVE mg/dL [facility] RBC Auto (Urine sed) [#/Area] 3-5 NONE, 1-2, 3-5 /HPF [facility] Specific gravity (U) [Rel density] 1.020 1.005 - 1.035 [facility] Urobilinogen (U) [Mass/Vol] Normal Normal mg/dL [facility] WBC Auto (Urine sed) [#/Area] 1-5 1-5, NONE /HPF [facility] Appearance (U) Turbid Normal Clear [facility] Comment on above: Performed By: #### 5 8077-9 #### HENNA DELONG ([id number]) [facility] ([facility]) [facility] [place] [id number] Bilirubin (U) [Mass/Vol] Negative Normal NEGATIVE [facility] Comment on above: Performed By: #### 5 8077-9 #### HENNA DELONG ([id number]) [facility] ([facility]) [address] [place] [address] Color (U) Yellow Normal Light-Yellow, Yellow, Dark-Yellow [facility] Comment on above: Performed By: #### 5 8077-9 #### HENNA DELONG ([id number]) [facility] ([facility]) [address] [place] [address] Glucose Auto test strip (U) [Mass/Vol] Normal Normal Normal [facility] Comment on above: Performed By: #### 5 8077-9 #### HENNA DELONG ([id number]) [facility] ([facility]) [address] [place] [address] Ketones (U) [Mass/Vol] Negative Normal NEGATIVE [facility] Comment on above: Performed By: #### 5 8077-9 #### HENNA DELONG ([id number]) [facility] ([facility]) [address] [place] [address] Leukocyte esterase Auto test strip Ql (U) Negative Normal NEGATIVE [facility] Comment on above: Performed By: #### 5 8077-9 #### HENNA DELONG ([id number]) [facility] ([facility]) [address] [place] [address] Mucus Auto (Urine sed) [#/Area] FEW Normal Reference range not established. [facility] Comment on above: Performed By: #### 5 8077-9 #### HENNA DELONG ([id number]) [facility] ([facility]) [address] [place], [place] [address] Nitrite Auto test strip Ql (U) Negative Normal NEGATIVE [facility] Comment on above: Performed By: #### 5 8077-9 #### HENNA DELONG ([id number]) [facility] ([facility]) [address] [place], [place] [address] pH (U) 6.0 [pH] Normal 5.0, 5.5, 6.0, 6.5, 7.0, 7.5, 8.0 [facility] Comment on above: Performed By: #### 5 8077-9 #### HENNA DELONG ([id number]) [facility] ([facility]) [address] [place] [address] Protein (U) [Mass/Vol] 20 (TRACE) Normal NEGATIVE, 10 (TRACE), 20 (TRACE) [facility] Comment on above: Performed By: #### 5 8077-9 #### HENNA DELONG ([id number]) [facility] ([facility]) [address] [place] [address] RBC (U) [#/Vol] Negative Normal NEGATIVE [facility] Comment on above: Performed By: #### 5 8077-9 #### HENNA DELONG ([id number]) [facility] ([facility]) [address] [place] [address] RBC Auto (Urine sed) [#/Area] 3-5 Normal NONE, 1-2, 3-5 [facility] Comment on above: Performed By: #### 5 8077-9 #### HENNA DELONG ([id number]) [facility] ([facility]) [address] [place] [address] Specific gravity (U) [Rel density] 1.020 Normal 1.005-1.035 [facility] Comment on above: Performed By: #### 5 8077-9 #### HENNA DELONG ([id number]) [facility] ([facility]) [address] [place] [address] Urobilinogen (U) [Mass/Vol] Normal Normal Normal [facility] Comment on above: Performed By: #### 5 8077-9 #### HENNA DELONG ([id number]) [facility] ([facility]) [address] [place] [address] WBC Auto (Urine sed) [#/Area] 1-5 Normal 1-5, NONE [facility] Comment on above: Performed By: #### 5 8077-9 #### HENNA DELONG ([id number]) [facility] ([facility]) [address] [place] [address] SCRN MAMM (CAD)W/MYLES BILATo n 09-03-2024 SCRN MAMM (CAD)W/MYLES BILAT [facility] Imaging Services [address] [place] [address] SCRN MAMM (CAD)W/MYLES BILAT MR#: [id number] Acct: [id number] Name: YANELI BASURTO Rep #: [id number] : 1950 F 74 From: Boogie lam MD PCP: Dr. Torres Bravo MD Status: [facility] Study: SCRN MAMM (CAD)W/MYLES BILAT Date of Exam: 08/20 01/11 Exam# [id number] Ordering Dr: Torres Bravo MD [id number] MAMMOGRAPHY - BILATERAL SCREENING REASON FOR EXAM: Female, 74 years old. Routine annual screening examination. PERTINENT HISTORY: Sister with breast cancer. TECHNIQUE: Digital bilateral breast myles (3D mammographic acquisition) in the CC and MLO projections. 2-D mediolateral oblique (MLO) and craniocaudad (CC) views of both breasts were obtained. CAD: Full Field Digital Mammography with Computer Added Detection was performed. COMPARISON: Comparison is made with prior study dated August 10, 2021 and August 11, 2019. FINDINGS: Breast Composition: There are scattered areas of fibroglandular density. There are no dominant masses or suspicious calcifications. No other significant abnormalities are identified. There has been no significant change since the prior study. BI/SCRN MAMM (CAD)W/MYLES BILAT IMPRESSION: Stable bilateral screening mammogram. Yearly follow-up mammogram recommended. (A) ASSESSMENT CATEGORY: BIRADS Category 1: Negative. A letter regarding these results will be sent to the patient by the facility within 30 days. Approximately 10% of breast cancers are not detected by mammography. A normal mammogram should not delay biopsy of a clinically suspicious abnormality. [id number] Electronically Signed: Boogie Pascual MD at 11:03 EST , CC: Dr. Torres Bravo MD Toolmaker Helper: Signed Normal [facility] Echo Completeon 08-08-2024 Echo Complete [facility] [address] [place] [address] Echo Complete 08/08/24 1406 MR#: [id number] Acct: [id number] Name: YANELI BASURTO Rep #: [id number] : 1950 73 From: Anmol Banda MD Attending Dr: Dr. Torres Bravo MD Status: RE G CLI Ordering Dr: Torres Bravo MD Date: 08/08/24 Location: [facility] Sex: F C Admitted: Reason For Study: MURMUR Procedure This was a 2D Doppler, Color Flow transthoracic echocardiogram. The study was technically difficult. Exam performed in department. Left Ventricle Normal LV size. Left ventricular systolic function is normal. The left ventricular ejection fraction is 65 %. No regional wall motion abnormalities noted. Right Ventricle Normal RV size. Normal systolic function. Atria Normal left atrium. Normal right atrium. Mitral Valve Normal mitral valve. Tricuspid Valve Normal tricuspid valve. Mild tricuspid valve insufficiency. Pulmonary artery systolic pressure is 30 mmHg. Aortic Valve Trisinus/trileaflet aortic valve. Pulmonic Valve Normal pulmonic valve. Great Vessels Normal aortic root. The pulmonary artery is normal size. Normal inferior vena cava. Pericardium/Pleural No pericardial effusion. MMode/2D Measurements Calculations LVIDd: 3.6 cm IVSd: 1.1 cm LVOT diam: 1.8 cm LVIDs: 1.8 cm LVPWd: 0.95 cm LVOT area: 2.6 cm2 RVDd: 3.2 cm FS: 50.6 % asc Aorta Diam: 3.1 cm LAV(MOD-bp): 52.4 ml LVAd ap4: 16.1 cm2 LAV(MOD-bp) Indexed: 28.3 ml/m2 LVLd ap4: 6.6 cm LAV(MOD-sp2): 55.3 ml EDV(MOD-sp4): 34.6 ml LAV(MOD-sp4): 50.5 ml EDV(sp4-el): 33.2 ml LVAs ap4: 8.6 cm2 LVLs ap4: 5.5 cm ESV(MOD-sp4): 12.5 ml ESV(sp4-el): 11.4 ml EF(MOD-sp4): 63.7 % EF(sp4-el): 65.5 % LVAd ap2: 16.1 cm2 SV(MOD-sp4): 22.0 ml SV(MOD-sp2): 25.1 ml LVLd ap2: 6.7 cm SI(MOD-sp4): 11.9 ml/m2 SI(MOD-sp2): 13.6 ml/m2 EDV(MOD-sp2): 33.1 ml EDV(sp2-el): 33.0 ml LVAs ap2: 6.4 cm2 LVLs ap2: 4.9 cm ESV(MOD-sp2): 8.0 ml ESV(sp2-el): 7.2 ml EF(MOD-sp2): 75.8 % SV(sp4-el): 21.7 ml Ao sinus diam: 2.[address] Junction: 2.3 cm LA dimension(2D): 3.5 cm LA A4 area: 18.1 cm2 RA A4 area: 11.0 cm2 TAPSE: 2.2 cm Time Measurements MV dec time: 0.25 sec Doppler Measurements Calculations MV E max flakita: 88.9 cm/sec Lat Peak E' Flakita: 8.9 cm/sec Med Peak E' Flakita: 6.7 cm/sec MV A max flakita: 113.4 cm/sec E/E' lat: 9.9 E/E' med: 13.3 MV E/A: 0.78 MV dec slope: 356.5 cm/sec2 Ao V2 max: 180.9 cm/sec LV V1 max: 160.6 cm/sec Ao max P.1 mmHg LV V1 max P.3 mmHg Ao V2 mean: 138.3 cm/sec LV V1 mean P.0 mmHg Ao mean P.2 mmHg LV V1 mean: 128.1 cm/sec Ao V2 VTI: 44.6 cm LV V1 VTI: 38.8 cm AV (velocity ratio): 0.87 BRITANY(I,D): 2.3 cm2 BRITANY(V,D): 2.3 cm2 SV(LVOT): 101.4 ml PA V2 max: 101.6 cm/sec TR max flakita: 262.7 cm/sec TR max P.6 mmHg ECHO/Echo Complete Interpretation Summary Normal LV size. Left ventricular systolic function is normal. The left ventricular ejection fraction is 65 %. Pulmonary artery systolic pressure is 30 mmHg. Ordering Physician: Torres Bravo Referring Physician: Torres Bravo Performed By: Syeda Deleon, [facility] 08/08/24 1547 Date Anmol Banda MD CC: Dr. Torres Bravo MD Date Dictated: 08/08/24 1406 Date Transcribed: 08/08/24 256 Toolmaker Helper: Signed [facility] Internal Medicine Office Vis kriss 07-23-2024 Internal Medicine Office Visit [facility] [address] [place] [address] [address] [place] [address] OFFICE VISIT Date of Service: 07/28/24 MR#: [id number] Acct: [id number] Name: YANELI BASURTO Rep #: [id number] : 1950 Provider: Dr. Torres bailey MD Age/Sex: 73/F Location: [facility] [place] Status: Signed Intake Vital Signs 02/20/24 13:01 06/09/24 10:16 07/28/24 10:17 Height 5 ft 3 in 5 ft 3 in 5 ft 3 in Weight: 182 lb BMI 32.2 BP 132/80 H Blood Pressure Location Lt brachial Position Sitting Respiration 14 Pulse 76 Pulse Source Monitor Temp 97.5 F L Temp Source Temporal Pulse Oximetry (%) 97 Oxygen Delivery Method room air Intake Visit Reasons: [employer]LL[employer] Toolmaker Helper Required: No Is patient in pain?: No Allergies sulfamethoxazole (From Bactrim) Allergy (Mild, Verified 07/28/24 10:12) Itching trimethoprim (From Bactrim) Allergy (Mild, Verified 07/28/24 10:12) Itching nitrofurantoin (From Macrobid) Allergy (Verified 07/28/24 10:12) Itching Medications ???Medication ???Instructions ???Recorded ???Confirmed ???Type cholecalciferol (vitamin D3) 125 125 mcg PO DAILY 10/03/22 07/28/24 History mcg (5,000 unit) capsule omeprazole 20 mg capsule,delayed 20 mg PO PRN 10/03/22 07/28/24 History release albuterol sulfate 90 mcg/actuation 2 puff inhalation Q6H PRN 07/26/23 07/28/24 Rx aerosol inhaler shortness of breath or wheezing #8.5 grams valacyclovir 1 gram tablet 2,000 mg (2 x 1 gram) PO BID PRN 07/26/23 07/28/24 Rx cold sores #4 tabs fluticasone 500 mcg-salmeterol 50 1 inh inhalation BID 30 days #60 ea 01/24/24 07/28/24 Rx mcg/dose blistr powdr for inhalation (Wixela Inhub) venlafaxine 75 mg capsule,extended 75 mg PO DAILY #90 caps 01/24/24 07/28/24 Rx release 24 hr venlafaxine 37.5 mg 37.5 mg PO QHS #90 caps 02/20/24 07/28/24 Rx capsule,extended release 24 hr carvedilol 6.25 mg tablet 6.25 mg PO BID #180 tabs 07/21/24 07/28/24 Rx lisinopril 40 mg tablet 40 mg PO DAILY #90 tabs 07/21/24 07/28/24 Rx lovastatin 10 mg tablet 10 mg PO QPM #30 tabs 07/28/24 07/28/24 Rx Have you fallen in the past year?: No PFSH Medical History Asthmatic bronchitis with exacerbation Thyroid nodule Erysipelas Herpes simplex Intracranial mass 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 Dyslipidemia Murmur, cardiac Herpes simplex type 1 infection Acute maxillary sinusitis, unspecified Melanoma of scalp Brain tumor Stiffness of left wrist joint Adhesive capsulitis of left shoulder Left shoulder pain Vitamin D deficiency Osteopenia Carpal tunnel syndrome History of cataract CVA (cerebral vascular accident) Prediabetes Seasonal allergies Asthma Anxiety Obesity Multiple thyroid nodules GERD (gastroesophageal reflux disease) Depression Hypertension Surgical History (Updated 07/28/24 @ 10:16 by Jamilah Jung MA) History of carpal tunnel surgery History of bilateral knee replacement History of section Family History Father Heart disease Mother Cancer Pancreatic Grandmother CVA (cerebral vascular accident) Grandfather Uremic acidosis Brother Hypertension Diabetes Sister Hypertension Breast cancer Social History (Updated 07/28/24 @ 10:17 by Jamilah Jung MA) adopted: No household members: spouse, family and children number of children: 2 current occupational status: employed 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 She is up to date on her blood work and never did her colonoscopy.??? She would like her flu shot and never got her shingles vaccine.??? She doesn't smoke and does not need refills today.??? She does try to eat healthy. She reports she is trying to stay active. She denies any new stroke like symptoms. She did hold her statin as previously recommended, but never resumed it as prescribed after that. She reports her muscle aches/pains did improve with stopping it. She reports if she is tired, she will still notice that her speech slurs a bit. She will do her mouth exercises during those times which does help. She never did the MRI as previously ordered, but needs to get that scheduled. Sh (more content not included)... Normal [facility] Chest PA and Lateralon 06-09 Chest PA and Lateral [facility] Imaging Services [address] [place], [place] [address] Chest PA and Lateral MR#: [id number] Acct: [id number] Name: YANELI BASURTO Rep #: [id number] : 1950 F 73 From: Kayden Hassan MD PCP: Dr. Torres Bravo MD Status: [facility] Study: Chest PA and Lateral Date of Exam: 06/09/24 Exam# [id number] Ordering Dr: Samson Ferrer [place] [id number] STUDY: X-RAY CHEST REASON FOR EXAM: Female, 73 years old. Shortness of breath and cough TECHNIQUE: PA and lateral views of the chest. COMPARISON: None. FINDINGS: The lungs are clear and expanded. There is no demonstrated pleural abnormality. Normal size heart. Normal mediastinum and angel. Normal visualized pulmonary arteries. Normal visualized aortic arch and descending thoracic aorta. Normal visualized thoracic spine. Normal visualized ribs, clavicles, and shoulders. There is no demonstrated abnormality of the visualized soft tissue structures of the upper abdomen. RAD/Chest PA and Lateral IMPRESSION: Normal x-ray examination of the chest. Electronically Signed: Murali Hassan MD at 10:48 EDT , CC: Dr. Torres Bravo MD; PERFECTO Kapoor Toolmaker Helper: Signed Normal [facility] Urgent Care Visit Reporton 1 Urgent Care Visit Report [facility] [address], [address] [place] [address] OFFICE VISIT Date of Service: 06/09/24 MR#: [id number] Acct: [id number] Name: YANELI BASURTO Rep #: [id number] : 1950 Provider: PERFECTO Kapoor Age/Sex: 73/F Location: [facility] – [place] Status: Signed Intake Vital Signs 02/20/24 13:01 06/09/24 10:16 Height 5 ft 3 in 5 ft 3 in Weight: 178 lb 2 oz 175 lb BMI 31.5 30.9 BP 120/76 110/76 Blood Pressure Location Lt brachial Lt brachial Position Sitting Sitting Respiration 16 16 Pulse 73 64 Pulse Source Monitor Monitor Temp 97.7 F L 98.1 F Temp Source Temporal Oral Pulse Oximetry (%) 96 98 Oxygen Delivery Method room air room air Intake Visit Reasons: Upper respiratory infection Chief Complaint: URI SX Toolmaker Helper Required: No Accompanied by: Self Is patient in pain?: No Allergies sulfamethoxazole (From Bactrim) Allergy (Mild, Verified 06/09/24 10:17) Itching trimethoprim (From Bactrim) Allergy (Mild, Verified 06/09/24 10:17) Itching nitrofurantoin (From Macrobid) Allergy (Verified 06/09/24 10:17) Itching Medications ???Medication ???Instructions ???Recorded ???Confirmed ???Type cholecalciferol (vitamin D3) 125 125 mcg PO DAILY 10/03/22 06/09/24 History mcg (5,000 unit) capsule omeprazole 20 mg capsule,delayed 20 mg PO PRN 10/03/22 06/09/24 History release alendronate 70 mg tablet (Fosamax) 70 mg PO QWEEK #12 tabs 02/13/23 06/09/24 Rx albuterol sulfate 90 mcg/actuation 2 puff inhalation Q6H PRN 07/26/23 06/09/24 Rx aerosol inhaler shortness of breath or wheezing #8.5 grams fexofenadine 180 mg tablet 180 mg PO DAILY 07/26/23 06/09/24 History ([facility]) valacyclovir 1 gram tablet 2,000 mg (2 x 1 gram) PO BID PRN 07/26/23 06/09/24 Rx cold sores #4 tabs carvedilol 6.25 mg tablet 6.25 mg PO BID #180 tabs 01/24/24 06/09/24 Rx fluticasone 500 mcg-salmeterol 50 1 inh inhalation BID 30 days #60 ea 01/24/24 06/09/24 Rx mcg/dose blistr powdr for inhalation (Wixela Inhub) lisinopril 40 mg tablet 40 mg PO DAILY #90 tabs 01/24/24 06/09/24 Rx rosuvastatin 20 mg tablet 20 mg PO DAILY #90 tabs 01/24/24 06/09/24 Rx venlafaxine 75 mg capsule,extended 75 mg PO DAILY #90 caps 01/24/24 06/09/24 Rx release 24 hr venlafaxine 37.5 mg 37.5 mg PO QHS #90 caps 02/20/24 06/09/24 Rx capsule,extended release 24 hr azithromycin 250 mg tablet See Rx Instructions PO .COMPLEX #6 06/09/24 06/09/24 Rx tabs methylprednisolone 4 mg tablets in See Rx Instructions PO PER PKG DIR 06/09/24 06/09/24 Rx a dose pack (Medrol (Hany)) #21 tabs Have you fallen in the past year?: No PFSH Medical History (Updated 06/09/24 @ 10:38 by Samson GROVE, PA) Asthmatic bronchitis with exacerbation Thyroid nodule Erysipelas Herpes simplex Intracranial mass 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 Dyslipidemia Murmur, cardiac Herpes simplex type 1 infection Acute maxillary sinusitis, unspecified Melanoma of scalp Brain tumor Stiffness of left wrist joint Adhesive capsulitis of left shoulder Left shoulder pain Vitamin D deficiency Osteopenia Carpal tunnel syndrome History of cataract CVA (cerebral vascular accident) Prediabetes Seasonal allergies Asthma Anxiety Obesity Multiple thyroid nodules GERD (gastroesophageal reflux disease) Depression Hypertension Surgical History Hx of colonoscopy History of carpal tunnel surgery of right wrist History of bilateral knee replacement History of section Family History Father Heart disease Mother Cancer Pancreatic Grandmother CVA (cerebral vascular accident) Grandfather Uremic acidosis Brother Hypertension Diabetes Sister Hypertension Breast cancer Social History household members: spouse current occupational status: employed 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 No complaints of sweats or rash or chest pressure/shortness of breath/dyspnea on exertion. Non-smoker. No close (more content not included)... Normal [facility] Study Interpretation of outs aishwarya studyon 01-31-2024 Outside images for comparison or treatment purposes, not interpreted by Radiologists. IMAGING Absolute lymphocyte countOrd ered By: Abdon Gamez on 11-07-2023 Lymphocytes Auto (Unsp spec) [#/Vol] 1.92 10*3/uL 0.83-4.51 [facility] Automated lymphocyte count a s percentage of total leukocytesOrdered By: Abdon Gamez on 03-20-2024 Lymphocytes/100 WBC Auto (Unsp spec) 30.9 % 19-41 [facility] Basophil percentageOrdered B y: Abdon Gamez on 11-07-2023 Basophils/100 WBC (Bld) 0.6 % 0-1 [facility] Bilirubin [Mass/Vol] 0.30 mg/dL 0.20-1.00 [facility] Comment on above: For patients on eltr ombopag therapy, use of Dimension [place] TBIL is not recommended. Chloride [Moles/Vol] 107 mmol/L 98-107 [facility] Cholesterol [Mass/Vol] 185 mg/dL <200 [facility] Comment on above: <200 mg/dL Desirable 200-240 mg/dL Borderline >240 mg/dL High Risk Eosinophils/100 WBC (Bld) 3.1 % 0-5 [facility] Glucose [Mass/Vol] 107 mg/dL 74-106 [facility] Comment on above: Fasting Glucose resu lt from 100 to 125 mg/dL suggests IMPAIRED HOMEOSTASIS per A.D.A. criteria. Hemoglobin (Bld) [Mass/Vol] 12.7 g/dL 12.0-15.0 [facility] Monocytes/100 WBC (Bld) 7.4 % 0-10 [facility] Neutrophils (Bld) [#/Vol] 3.6 10*3/uL 2.0-7.7 [facility] Neutrophils/100 WBC (Bld) 57.7 % 47-70 [facility] Potassium [Moles/Vol] 4.6 mmol/L 3.5-5.1 [facility] Protein [Mass/Vol] 7.3 g/dL 6.4-8.2 [facility] Sodium [Moles/Vol] 140 mmol/L 136-145 [facility] Triglyceride [Mass/Vol] 91 mg/dL <199 [facility] Comment on above: The drugs N-Acetylcy steine and Metamizole may falsely depress this assay.Serum Triglycerides Reference Interval Normal <150 mg/dL Borderline high 150 - 199 mg/dL High 200 - 499 mg/dL Very High > or = 500 mg/dL WBC (Bld) [#/Vol] 6.2 10*3/uL 4.4-11.0 [facility] Determination of erythrocyte mean corpuscular volume (MCV)Ordered By: Abdon Gamez on 11-07-2023 MCV (RBC) [Entitic vol] 93.2 fL 81-99 [facility] Erythrocyte distribution wid th ratioOrdered By: Abdon Gamez on 11-07-2023 Erythrocyte distribution width (RBC) [Ratio] 12.9 % 11.6-14.6 [facility] Erythrocyte distribution wid th standard deviationOrdered By: Abdon Gamez on 11-07-2023 Erythrocyte distribution width (RBC) [Entitic vol] 43.2 fL 35.1-43.9 [facility] Hematocrit Auto (Bld) [Volum e fraction]Ordered By: Abdon Gamez on 11-07-2023 Hematocrit (Bld) [Volume fraction] 40.0 % 37-47 [facility] Immature granulocytes/100 WB C Auto (Bld)Ordered By: Abdon Gamez on 11-07-2023 Immature granulocytes/100 WBC (Bld) 0.300 % 0.0-0.9 [facility] Comment on above: IG% - Immature Granu locytes (promyelocytes, myelocytes and metamyelocytes) > 1% indicates that a LEFT SHIFT is Present. Laboratory - Chemistry and C hemistry - challengeOrdered By: Abdon Gamez on 11-07-2023 Albumin/Globulin [Mass ratio] 1.0 {ratio} 0.9-2.4 [facility] ALP [Catalytic activity/Vol] 91 U/L 45-117 [facility] ALT [Catalytic activity/Vol] 21 U/L 13-56 [facility] Cholesterol in HDL [Mass/Vol] 54 mg/dL >40 [facility] Comment on above: The drugs N-Acetylcy steine and Metamizole may falsely depress this assay. Reference Range HDL <40 mg/dL Low HDL Cholesterol HDL >or= 60 mg/dL High HDL Cholesterol Cholesterol in LDL [Mass/Vol] 113 mg/dL 0-130 [facility] CO2 [Moles/Vol] 27.0 mmol/L 21.0-32.0 [facility] Globulin (S) [Mass/Vol] 3.7 g/dL 2.2-4.2 [facility] Urea nitrogen/Creatinine [Mass ratio] 19.6 mg/mg 10-20 [facility] Laboratory - Hematology and Cell countsOrdered By: Abdon Gamez on 11-07-2023 MCH (RBC) [Entitic mass] 29.6 pg 27.0-32.0 [facility] MCHC (RBC) [Mass/Vol] 31.8 g/dL 32-36 [facility] Nucleated RBC/100 WBC (Bld) [Ratio] 0 % 0-5 [facility] Platelet mean volume (Bld) [Entitic vol] 10.2 fL 6.2-12.0 [facility] Platelets (Bld) [#/Vol] 298 10*3/uL 150-450 [facility] No Panel InformationOrdered By: Abdon Gamez on 11-07-2023 Estimated GFR (MDRD) Amer 77 mL/min >60 [facility] Comment on above: GFR Calc Estimated GFR (MDRD) Non-Af Amer 64 mL/min >60 [facility] Comment on above: Non- GFR Calc Vitamin D 25-Hydroxy 44.4 ng/mL [facility] Comment on above: Vitamin D 25(OH) Sta tus Range Deficiency <20 ng/mL (50nmol/L) Insufficiency 20 - 30 ng/mL (50 - 75 nmol/L) Sufficiency 30 - 100 ng/mL (75 - 250 nmol/L) Toxicity >100 ng/mL (>250 nmol/L) VLDL Cholesterol 18 mg/dL 5-40 [facility] RBC Auto (Bld) [#/Vol]Ordere d By: Abdon Gamez on 11-07-2023 RBC (Bld) [#/Vol] 4.29 10*6/uL 4.2-5.4 [facility] Serum or plasma calcium peace urement (mass/volume)Ordered By: Abdon Gamez on 11-07-2023 Calcium [Mass/Vol] 9.6 mg/dL 8.5-10.1 [facility] Serum or plasma creatinine m easurement (mass/volume)Ordered By: Abdon Gamez on 11-07-2023 Creatinine [Mass/Vol] 0.92 mg/dL 0.55-1.02 [facility] Comment on above: The validity of the calculated GFR & GFRAA in patients over 70 years has not been determined. Clinical correlation is essential. Serum or plasma thyroid stim ulating hormone (TSH) measurement (units/volume)Ordered By: Abdon Gamez on 11-07-2023 TSH Qn 1.72 uIU/mL 0.358-3.74 [facility] Serum or plasma urea nitroge n measurement (mass/volume)Ordered By: Abdon Gamez on 11-07-2023 Urea nitrogen [Mass/Vol] 18 mg/dL 7-18 [facility] Thin prep Papanicolaou smear with manual screeningOrdered By: Abdon Gamez on 11-07-2023 Thin prep Papanicolaou smear with manual screening 3.6 g/dL 3.2-5.0 [facility] Thin prep Papanicolaou smear with manual screening 20 U/L 15-37 [facility] Thin prep Papanicolaou smear with manual screening 6 5-15 [facility] Detection of any of influenz a virus A H1 and H3, and influenza virus B RNA by probe aOrdered By: Torres Bravo on 09-27-2023 FLUAV H1+H3+FLUBV RNA CHEN+probe Ql (Unsp spec) [facility] FLUAV H1+H3+FLUBV RNA CHEN+probe Ql (Unsp spec) [facility] Cytology report of Body flui d Cyto stainOrdered By: Carola Mckeon on 06-27-2023 Cytology report Cyto stain Doc (Body fld) SEE PATHOLOGY REPORT [facility] Comment on above: Specimen submitted t o Anatomical Pathology Department for testing. 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) Gait abnormality (781.2) (R26.9) Weakness of shoulder (719.61) (R29.898) Weakness of left hand (728.87) (R29.898) Weakness of one side of body (728.87) (R53.1) Weakness of extremity due to old stroke Leg weakness (729.89) (R29.898) HTN (hypertension) (401.9) (I10) Elevated HDL (785.9) (E78.89) Obesity (278.00) (E66.9) Flaccid 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 : No Is the patient or breast feeding? : No What are the patient's signs and symptoms? : cerebellar tumor Unlinked Continue: Carvedilol 6.25 MG Oral Tablet; TAKE 1 TABLET TWICE DAILY, WITH MORNING AND EVENING MEAL Continue: Lisinopril 40 MG Oral Tablet; TAKE 1 TABLET BY MOUTH EVERY DAY Continue: Venlafaxine HCl - 75 MG Oral Tablet; TAKE 1 TABLET DAILY Continue: Vitamin D3 25 MCG (1000 UT) Oral Tablet; TAKE 1 TABLET DAILY Patient Discussion/Summary I discussed the natural history of intracranial meningiomas, and discussed that many are found incidentally on intracranial imaging as an incidental finding. She is not symptomatic from the meningioma, there is no edema or mass effect. Therefore, majority of meningiomas remain stable or slowly increase in size over time. Will therefore, recommend MR imaging in 3 months time for followup. If that MRI is stable and patient remains asymptomatic, then can have surveillance scans less frequently. Will have patient see me back in 3 months time once followup MRI is completed. Patient verbalized understanding and all of her questions were answered. Provider Impressions 72 yo female referral from Neurology DR Owens. H/O of HTN, asthma, GERD, thyroid nodules, anxiety, depression and vitamin D deficiency,Admitted Jun 2022 with LUE and LLE hemiplegia and hypertensive on presentation (SBP 170?s). CT brain notable for 1.5 x 1.5 x 2.5 cm acute intracranial hemorrhage centered in the right lentiform nucleus without significant mass effect or midline shift. Meningioma of the left cerebellum was not reported on the CT then, but it is evidence on imagng. She had a followup MRI brain which was personally reviewed which revealed a left cerebellar dural based homogenously enhancing lesion concerning for meningioma. She was then referred to see me in neurosurgery. Chief Complaint 72 yo female referral from Neurology DR Owens. H/O of HTN, asthma, GERD, thyroid nodules, anxiety, depression and vitamin D deficiency,Admitted Jun 2022 with LUE and LLE hemiplegia and hypertensive on presentation (SBP 170?s). CT brain notable for 1.5 x 1.5 x 2.5 cm acute intracranial hemorrhage centered in the right lentiform nucleus without significant mass effect or midline shift. History of Present Illness 72 yo female referral from Neurology DR Owens. H/O of HTN, asthma, GERD, thyroid nodules, anxiety, depression and vitamin D deficiency,Admitted Jun 2022 with LUE and LLE hemiplegia and hypertensive on presentation (SBP 170?s). CT brain notable for 1.5 x 1.5 x 2.5 cm acute intracranial hemorrhage centered in the right lentiform nucleus without significant mass effect or midline shift. Meningioma of the left cerebellum was not reported on the CT then, but it is evidence on imagng. She had a followup MRI brain which was personally reviewed which revealed a left cerebellar dural based homogenously enhancing lesion concerning for meningioma. She was then referred to see me in neurosurgery. She comes to clinic today accompanied by 2 family members. She has made some recovery since her stroke back in Jun 2022, although she still has residual weakness on the left. But otherwise, she is doing well. Patient denies fevers, headaches, nausea, vomiting, speech difficulty, seizures, double/blurry vision, sensory loss, incontinence, pain. Review of Systems Constitutional - no fever, no chills, no recent weight gain and no recent weight loss. Eyes - no blurred vision, no floaters, no unilateral loss of vision and no tunnel vision. ENT - no hearing loss, no nosebleeds, no dysphagia and no hoarseness. Cardiovascular - no chest pain, no chest pressure and no palpitations. Respiratory - no shortness of breath, no shortness of breath during exertion, no asthma, no cough and no hemoptysis. Gastrointestinal - no abdominal pain, no constipation, no heartburn, no nausea, no vomiting, no change in bowel movement, no diarrhea and no blood in stools. Genitourinary - no dysuria, no incontinence and n (more content not included)... Normal [facility] Absolute lymphocyte countOrd ered By: Dr. Acuña on 11-21-2022 Lymphocytes Auto (Unsp spec) [#/Vol] 2.03 10*3/uL 0.83-4.51 [facility] Basophil percentageOrdered B y: Dr. Acuña on 11-21-2022 Basophils/100 WBC (Bld) 0.4 % 0-1 [facility] Bilirubin [Mass/Vol] 0.40 mg/dL 0.20-1.00 [facility] Comment on above: For patients on eltr ombopag therapy, use of Dimension [place] TBIL is not recommended. Chloride [Moles/Vol] 104 mmol/L 98-107 [facility] Eosinophils/100 WBC (Bld) 1.8 % 0-5 [facility] Glucose [Mass/Vol] 110 mg/dL 74-106 [facility] Comment on above: Fasting Glucose resu lt from 100 to 125 mg/dL suggests IMPAIRED HOMEOSTASIS per A.D.A. criteria. Neutrophils (Bld) [#/Vol] 8.5 10*3/uL 2.0-7.7 [facility] Neutrophils/100 WBC (Bld) 70.7 % 47-70 [facility] Potassium [Moles/Vol] 4.1 mmol/L 3.5-5.1 [facility] Protein [Mass/Vol] 7.5 g/dL 6.4-8.2 [facility] Sodium [Moles/Vol] 135 mmol/L 136-145 [facility] WBC (Bld) [#/Vol] 12.1 10*3/uL 4.4-11.0 [facility] Blood erythrocytes count (nu mber/volume)Ordered By: Dr. Acuña on 11-21-2022 RBC (Bld) [#/Vol] 4.34 10*6/uL 4.2-5.4 [facility] Blood hemoglobin measurement (mass/volume)Ordered By: Dr. Acuña on 11-21-2022 Hemoglobin (Bld) [Mass/Vol] 13.0 g/dL 12.0-15.0 [facility] Blood lymphocytes/100 leukoc ytesOrdered By: Dr. Acuña on 11-21-2022 Lymphocytes/100 WBC (Bld) 16.8 % 19-41 [facility] Blood monocytes/100 leukocyt esOrdered By: Dr. Acuña on 11-21-2022 Monocytes/100 WBC (Bld) 9.9 % 0-10 [facility] Blood platelet mean volumeOr dered By: Dr. Acuña on 11-21-2022 Platelet mean volume (Bld) [Entitic vol] 9.6 fL 6.2-12.0 [facility] Determination of erythrocyte mean corpuscular volume (MCV)Ordered By: Dr. Acuña on 11-21-2022 MCV (RBC) [Entitic vol] 93.1 fL 81-99 [facility] Hematocrit Auto (Bld) [Volum e fraction]Ordered By: Dr. Acuña on 11-21-2022 Hematocrit (Bld) [Volume fraction] 40.4 % 37-47 [facility] Laboratory - Chemistry and C hemistry - challengeOrdered By: Dr. Acuña on 11-21-2022 ALP [Catalytic activity/Vol] 143 U/L 45-117 [facility] ALT [Catalytic activity/Vol] 36 U/L 13-56 [facility] CO2 [Moles/Vol] 26.0 mmol/L 21.0-32.0 [facility] Globulin (S) [Mass/Vol] 4.0 g/dL 2.2-4.2 [facility] Urea nitrogen/Creatinine [Mass ratio] 27.6 mg/mg 10-20 [facility] Laboratory - Hematology and Cell countsOrdered By: Dr. Acuña on 11-21-2022 Erythrocyte distribution width (RBC) [Entitic vol] 42.5 fL 35.1-43.9 [facility] Erythrocyte distribution width (RBC) [Ratio] 12.4 % 11.6-14.6 [facility] Immature granulocytes/100 WBC (Bld) 0.400 % 0.0-0.9 [facility] Comment on above: IG% - Immature Granu locytes (promyelocytes, myelocytes and metamyelocytes) > 1% indicates that a LEFT SHIFT is Present. MCH (RBC) [Entitic mass] 30.0 pg 27.0-32.0 [facility] Nucleated RBC/100 WBC (Bld) [Ratio] 0 % 0-5 [facility] MCHC Auto (RBC) [Mass/Vol]Or dered By: Dr. Acuña on 11-21-2022 MCHC (RBC) [Mass/Vol] 32.2 g/dL 32-36 [facility] No Panel InformationOrdered By: Dr. Acuña on 11-21-2022 Estimated GFR (MDRD) Amer 82 mL/min >60 [facility] Comment on above: GFR Calc Estimated GFR (MDRD) Non-Af Amer 68 mL/min >60 [facility] Comment on above: Non- GFR Calc Platelets bldOrdered By: Dr. Acuña on 11-21-2022 Platelets (Bld) [#/Vol] 290 10*3/uL 150-450 [facility] Serum or plasma albumin peace urement (mass/volume)Ordered By: Dr. Acuña on 11-21-2022 Albumin [Mass/Vol] 3.5 g/dL 3.2-5.0 [facility] Serum or plasma albumin/glob ulin mass ratioOrdered By: Dr. Acuña on 11-21-2022 Albumin/Globulin [Mass ratio] 0.9 {ratio} 0.9-2.4 [facility] Serum or plasma calcium peace urement (mass/volume)Ordered By: Dr. Acuña on 11-21-2022 Calcium [Mass/Vol] 9.7 mg/dL 8.5-10.1 [facility] Serum or plasma creatinine m easurement (mass/volume)Ordered By: Dr. cAuña on 11-21-2022 Creatinine [Mass/Vol] 0.87 mg/dL 0.55-1.02 [facility] Comment on above: The validity of the calculated GFR & GFRAA in patients over 70 years has not been determined. Clinical correlation is essential. Serum or plasma urea nitroge n measurement (mass/volume)Ordered By: Dr. Acuña on 11-21-2022 Urea nitrogen [Mass/Vol] 24 mg/dL 7-18 [facility] Thin prep Papanicolaou smear with manual screeningOrdered By: Dr. Acuña on 11-21-2022 Thin prep Papanicolaou smear with manual screening 17 U/L 15-37 [facility] Thin prep Papanicolaou smear with manual screening 5 5-15 [facility] No Panel Informationon 11-16 Please click on the link to view the study images Normal [facility]: MRI Cervical without Contras ton 11-10-2022 MR Cervical spine WO contrast Please click on the link to view the study images Normal [facility]: Radiologyon 11-10-2022 MR Brain W contrast IV Please click on the link to view the study images Normal [facility] Work Phone: Basophil percentageOrdered B y: Dr. Bravo on 10-25-2022 Bilirubin [Mass/Vol] 0.40 mg/dL 0.20-1.00 [facility] Comment on above: For patients on eltr ombopag therapy, use of Dimension [place] TBIL is not recommended. Chloride [Moles/Vol] 104 mmol/L 98-107 [facility] Glucose [Mass/Vol] 105 mg/dL 74-106 [facility] Comment on above: Fasting Glucose resu lt from 100 to 125 mg/dL suggests IMPAIRED HOMEOSTASIS per A.D.A. criteria. Potassium [Moles/Vol] 3.8 mmol/L 3.5-5.1 [facility] Protein [Mass/Vol] 7.5 g/dL 6.4-8.2 [facility] Sodium [Moles/Vol] 139 mmol/L 136-145 [facility] Laboratory - Chemistry and C hemistry - challengeOrdered By: Dr. Bravo on 10-25-2022 ALP [Catalytic activity/Vol] 169 U/L 45-117 [facility] ALT [Catalytic activity/Vol] 50 U/L 13-56 [facility] CO2 [Moles/Vol] 30.0 mmol/L 21.0-32.0 [facility] Globulin (S) [Mass/Vol] 3.7 g/dL 2.2-4.2 [facility] Urea nitrogen/Creatinine [Mass ratio] 22.0 mg/mg 10-20 [facility] No Panel InformationOrdered By: Dr. Bravo on 10-25-2022 Estimated GFR (MDRD) Amer 83 mL/min >60 [facility] Comment on above: GFR Calc Estimated GFR (MDRD) Non-Af Amer 69 mL/min >60 [facility] Comment on above: Non- GFR Calc Serum or plasma albumin peace urement (mass/volume)Ordered By: Dr. Bravo on 10-25-2022 Albumin [Mass/Vol] 3.8 g/dL 3.2-5.0 [facility] Serum or plasma albumin/glob ulin mass ratioOrdered By: Dr. Bravo on 10-25-2022 Albumin/Globulin [Mass ratio] 1.0 {ratio} 0.9-2.4 [facility] Serum or plasma calcium peace urement (mass/volume)Ordered By: Dr. Bravo on 10-25-2022 Calcium [Mass/Vol] 9.8 mg/dL 8.5-10.1 [facility] Serum or plasma creatinine m easurement (mass/volume)Ordered By: Dr. Bravo on 10-25-2022 Creatinine [Mass/Vol] 0.86 mg/dL 0.55-1.02 [facility] Comment on above: The validity of the calculated GFR & GFRAA in patients over 70 years has not been determined. Clinical correlation is essential. Serum or plasma urea nitroge n measurement (mass/volume)Ordered By: Dr. Bravo on 10-25-2022 Urea nitrogen [Mass/Vol] 19 mg/dL 7-18 [facility] Thin prep Papanicolaou smear with manual screeningOrdered By: Dr. Bravo on 10-25-2022 Thin prep Papanicolaou smear with manual screening 34 U/L 15-37 [facility] Thin prep Papanicolaou smear with manual screening 5 5-15 [facility] No Panel Informationon 10-19 Normal QR-Mglzrefvl-H [place] [id number] Work Phone: Radiologyon 10-19-2022 MR Brain WO contrast Normal MG-N eurology-U [place] [address] Work Phone: Absolute lymphocyte countOrd ered By: Dr. Bravo on 10-09-2022 Lymphocytes Auto (Unsp spec) [#/Vol] 1.68 10*3/uL 0.83-4.51 [facility] Basophil percentageOrdered B y: Dr. Bravo on 10-09-2022 Basophils/100 WBC (Bld) 0.9 % 0-1 [facility] Bilirubin [Mass/Vol] 0.50 mg/dL 0.20-1.00 [facility] Comment on above: For patients on eltr ombopag therapy, use of Dimension [place] TBIL is not recommended. Chloride [Moles/Vol] 102 mmol/L 98-107 [facility] Cholesterol [Mass/Vol] 116 mg/dL <200 [facility] Comment on above: <200 mg/dL Desirable 200-240 mg/dL Borderline >240 mg/dL High Risk Eosinophils/100 WBC (Bld) 4.1 % 0-5 [facility] Glucose [Mass/Vol] 123 mg/dL 74-106 [facility] Comment on above: Fasting Glucose resu lt from 100 to 125 mg/dL suggests IMPAIRED HOMEOSTASIS per A.D.A. criteria. Neutrophils (Bld) [#/Vol] 3.8 10*3/uL 2.0-7.7 [facility] Neutrophils/100 WBC (Bld) 59.8 % 47-70 [facility] Potassium [Moles/Vol] 4.7 mmol/L 3.5-5.1 [facility] Protein [Mass/Vol] 7.7 g/dL 6.4-8.2 [facility] Sodium [Moles/Vol] 139 mmol/L 136-145 [facility] Triglyceride [Mass/Vol] 85 mg/dL <199 [facility] Comment on above: The drugs N-Acetylcy steine and Metamizole may falsely depress this assay.Serum Triglycerides Reference Interval Normal <150 mg/dL Borderline high 150 - 199 mg/dL High 200 - 499 mg/dL Very High > or = 500 mg/dL WBC (Bld) [#/Vol] 6.3 10*3/uL 4.4-11.0 [facility] Blood erythrocytes count (nu mber/volume)Ordered By: Dr. Bravo on 10-09-2022 RBC (Bld) [#/Vol] 4.33 10*6/uL 4.2-5.4 [facility] Blood hemoglobin measurement (mass/volume)Ordered By: Dr. Bravo on 10-09-2022 Hemoglobin (Bld) [Mass/Vol] 13.0 g/dL 12.0-15.0 [facility] Blood lymphocytes/100 leukoc ytesOrdered By: Dr. Bravo on 10-09-2022 Lymphocytes/100 WBC (Bld) 26.6 % 19-41 [facility] Blood monocytes/100 leukocyt esOrdered By: Dr. Bravo on 10-09-2022 Monocytes/100 WBC (Bld) 8.4 % 0-10 [facility] Blood platelet mean volumeOr dered By: Dr. Bravo on 10-09-2022 Platelet mean volume (Bld) [Entitic vol] 10.8 fL 6.2-12.0 [facility] Determination of erythrocyte mean corpuscular volume (MCV)Ordered By: Dr. Bravo on 10-09-2022 MCV (RBC) [Entitic vol] 94.9 fL 81-99 [facility] Hematocrit Auto (Bld) [Volum e fraction]Ordered By: Dr. Bravo on 10-09-2022 Hematocrit (Bld) [Volume fraction] 41.1 % 37-47 [facility] Laboratory - Chemistry and C hemistry - challengeOrdered By: Dr. Bravo on 10-09-2022 ALP [Catalytic activity/Vol] 231 U/L 45-117 [facility] ALT [Catalytic activity/Vol] 109 U/L 13-56 [facility] CO2 [Moles/Vol] 31.0 mmol/L 21.0-32.0 [facility] Globulin (S) [Mass/Vol] 3.9 g/dL 2.2-4.2 [facility] Urea nitrogen/Creatinine [Mass ratio] 17.5 mg/mg 10-20 [facility] Laboratory - Hematology and Cell countsOrdered By: Dr. Bravo on 10-09-2022 Erythrocyte distribution width (RBC) [Entitic vol] 44.5 fL 35.1-43.9 [facility] Erythrocyte distribution width (RBC) [Ratio] 12.6 % 11.6-14.6 [facility] Immature granulocytes/100 WBC (Bld) 0.200 % 0.0-0.9 [facility] Comment on above: IG% - Immature Granu locytes (promyelocytes, myelocytes and metamyelocytes) > 1% indicates that a LEFT SHIFT is Present. MCH (RBC) [Entitic mass] 30.0 pg 27.0-32.0 [facility] Nucleated RBC/100 WBC (Bld) [Ratio] 0 % 0-5 [facility] MCHC Auto (RBC) [Mass/Vol]Or dered By: Dr. Bravo on 10-09-2022 MCHC (RBC) [Mass/Vol] 31.6 g/dL 32-36 [facility] No Panel InformationOrdered By: Dr. Bravo on 10-09-2022 Estimated GFR (MDRD) Amer 84 mL/min >60 [facility] Comment on above: GFR Calc Estimated GFR (MDRD) Non-Af Amer 69 mL/min >60 [facility] Comment on above: Non- GFR Calc Vitamin D 25-Hydroxy 62.3 ng/mL [facility] Comment on above: Vitamin D 25(OH) Sta tus Range Deficiency <20 ng/mL (50nmol/L) Insufficiency 20 - 30 ng/mL (50 - 75 nmol/L) Sufficiency 30 - 100 ng/mL (75 - 250 nmol/L) Toxicity >100 ng/mL (>250 nmol/L) Platelets bldOrdered By: Dr. Bravo on 10-09-2022 Platelets (Bld) [#/Vol] 289 10*3/uL 150-450 [facility] Serum or plasma albumin peace urement (mass/volume)Ordered By: Dr. Bravo on 10-09-2022 Albumin [Mass/Vol] 3.8 g/dL 3.2-5.0 [facility] Serum or plasma albumin/glob ulin mass ratioOrdered By: Dr. Bravo on 10-09-2022 Albumin/Globulin [Mass ratio] 1.0 {ratio} 0.9-2.4 [facility] Serum or plasma calcium peace urement (mass/volume)Ordered By: Dr. Bravo on 10-09-2022 Calcium [Mass/Vol] 10.2 mg/dL 8.5-10.1 [facility] Serum or plasma cholesterol in HDL measurement (mass/volume)Ordered By: Dr. Bravo on 10-09-2022 Cholesterol in HDL [Mass/Vol] 56 mg/dL >40 [facility] Comment on above: The drugs N-Acetylcy steine and Metamizole may falsely depress this assay. Reference Range HDL <40 mg/dL Low HDL Cholesterol HDL >or= 60 mg/dL High HDL Cholesterol Serum or plasma cholesterol in VLDL measurement (mass/volume)Ordered By: Dr. Bravo on 10-09-2022 Cholesterol in VLDL [Mass/Vol] 17 mg/dL 5-40 [facility] Serum or plasma creatinine m easurement (mass/volume)Ordered By: Dr. Bravo on 10-09-2022 Creatinine [Mass/Vol] 0.86 mg/dL 0.55-1.02 [facility] Comment on above: The validity of the calculated GFR & GFRAA in patients over 70 years has not been determined. Clinical correlation is essential. Serum or plasma low density lipoprotein (LDL) cholesterol measurement (mass/volume)Ordered By: Dr. Bravo on 10-09-2022 Cholesterol in LDL [Mass/Vol] 43 mg/dL 0-130 [facility] Serum or plasma urea nitroge n measurement (mass/volume)Ordered By: Dr. Bravo on 10-09-2022 Urea nitrogen [Mass/Vol] 15 mg/dL 7-18 [facility] Thin prep Papanicolaou smear with manual screeningOrdered By: Dr. Bravo on 10-09-2022 Thin prep Papanicolaou smear with manual screening 64 U/L 15-37 [facility] Thin prep Papanicolaou smear with manual screening 6 5-15 [facility] Whole blood hemoglobin A1c/t otal hemoglobin ratio (mass fraction)Ordered By: Dr. Bravo on 10-09-2022 HbA1c (Bld) [Mass fraction] 6.3 % 3.8-5.6 [facility] Comment on above: Normal < 5.7 % Predi abetic 5.7 - 6.4 % Diabetic >or= 6.5 % Please note range changes. Office Visit (Neuro-Stroke)o n 09-26-2022 Follow-up visit Provider Impressions Hemorrhage probably hypertensive - BP apparently 200 at onset but usually lower. Round appearance somewhat atypical. Get MR/MRA. 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 Order PT left shoulder ROM. Driving I would wait for on the road testing in 3 [address] on local streets or parking lot. Work on [employer]. OK to RTW October 04 but restrict heavy lifting. Loss of appetite likely mild depression -discussed. Plan: - WIll obtain MRI with and without contrast, and MRA HANDN to further characterize the etiology. - PT for Lt frozen shoulder - capsulitis. - OT referral for driving evaluation in 3 months. Pt seen, examined and staffed with Dr. Estefania Quarles MD Neurology PGY-3 As above Needs work on frozen left shoulder Left hand motion fair -may improve Work OK but would delay driving test 3-6 months1 1 Amended By: Issac Owens; Sep 29 2022 10:27 AM ESTDiagnoses/Problems Assessed Nontraumatic subcortical hemorrhage of cerebral hemisphere, unspecified laterality (431) (I61.0)1 1 Amended By: Issac Owens; Sep 29 2022 10:27 AM ESTOrders CVA (cerebrovascular accident due to intracerebral hemorrhage) MRA Head without Contrast; Status:Active; Requested for:[id number]; Radiologist to Determine Optimal Study : Y Does the patient have a Cochlear Implant, Pacemaker, Defibrilator, Pacing Wire, Brain Aneurysm Clip, Implanted Nerve or Bone Graft Simulator, Implanted Breast Tissue Aircraft Loadmaster Superintendent, Glucose Monitor, or Neulasta Device? : No Is the patient or breast feeding? : No What are the patient's signs and symptoms? : ICH r/o vascular lesion right basal ganglia MRA Neck without Contrast; Status:Active; Requested for:[id number]; Radiologist to Determine Optimal Study : Y Does the patient have a Cochlear Implant, Pacemaker, Defibrilator, Pacing Wire, Brain Aneurysm Clip, Implanted Nerve or Bone Graft Simulator, Implanted Breast Tissue Aircraft Loadmaster Superintendent, Glucose Monitor, or Neulasta Device? : No Is the patient or breast feeding? : No What are the patient's signs and symptoms? : ICH r/o vascular lesion right basal ganglia MRI Brain without Contrast; Status:Active; Requested for:10Oct2022; Radiologist to Determine Optimal Study : Y Does the patient have a Cochlear Implant, Pacemaker, Defibrilator, Pacing Wire, Brain Aneurysm Clip, Implanted Nerve or Bone Graft Simulator, Implanted Breast Tissue Aircraft Loadmaster Superintendent, Glucose Monitor, or Neulasta Device? : No Is the patient or breast feeding? : No What are the patient's signs and symptoms? : ICH r/o vascular lesion right basal ganglia CVA (cerebrovascular accident due to intracerebral hemorrhage), Left shoulder strain Physical Therapy - Neurologic Referral Evaluation and Treatment Evaluate AND Treat increase ROM L shoulder frozen from stroke Status: Hold For - Scheduling Requested for: 26Sep2022 Chief Complaint f/u after admission for ICH. 06/2022 right basal ganglia hemorrhage Adult Risk Screening There are no spiritual/cultural practices/values/need s that are important to know History of Present Illness Yaneli Basurto is a 71 year old female with history of HTN, asthma, GERD, thyroid nodules, anxiety, depression and vitamin D deficiency, presenting to Neurology clinic for follow-up. Admitted on Jun 2022 with LUE and LLE hemiplegia and dysarthria. Initial NIHSS was 8 (FD, LUE flaccidity LLE drift, dysarthria).Was noted to be quite hypertensive on presentation (SBP 170?s). CT brain was obtained and notable for 1.5 x 1.5 x 2.5 cm acute intracranial hemorrhage centered in the right lentiform nucleus without significant mass effect or midline shift. Stroke work-up: LDL of 103 for which she has been put on atorvastatin, A1C 6.4 TTE showed EF 70%-75%, LA size wnl, negative bubble study. No MRI or vessel imaging were obtained. Interval history: Still has LUE weakness, at 50% strength compared to pre-morbid baseline. LLE strength has improved, back to baseline according. Walks without assistive devices. Denied falls or falls. 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 PMHx: HTN, asthma, GERD, thyroid nodules, anxiety, depression and vitamin D deficiency PSHx: Bilateral TKA, carpal tunnel release RUE, section Social Hx: Denies tobacco, illicit drugs, occasional EtOH Family Hx: CAD (father), pancreatic cancer (mother), CVA (grandmother), [place] (grandfather), HTN (brother and sister) Medications: Venlafaxine 75mg qd Lisinopril 40mg Baclofen 10mg TID Atorvastatin 40 mg oral tablet - 1 tab(s) orally once a day Carvedilol 25 mg oral tablet - 1 tab(s) orally 2 times a day Vitamin D3 125 mcg (5000 intl units) oral tablet - 1 tab(s) orally once a day (more content not included)... Normal [facility] Tobacco Screening.on 023 Fall risk assessment a) No falls within the last year SP-Atvgcehqt-R [facility] [address] Work Phone: Tobacco use status [facility] b) [facility] Work Phone: Clinical Event Note-Stroke F ollow-Up Callon 08-30-2022 Clinical Event Note-Stroke Follow-Up Call This report has been cancelled. Normal [facility] Clinical Event Note-Stroke Follow-Up Call Clinical Event: Clinical Event Note: TopicStroke Follow-Up Call Details No call placed as patient was discharged to SNF for rehab. Electronic Signatures: Marjan Lovell (SISSY) (Signed 30-Aug-2022 14:19) Authored: Clinical Event Note Last Updated: 30-Aug-2022 14:19 by Marjan Lovell (SISSY) Normal [facility] Basic metabolic 2000 panelon 07-24-2022 Anion gap [Moles/Vol] 9 mmol/L 9 - 18 mmol/L [facility] Calcium [Mass/Vol] 9.9 mg/dL 8.5 - 10. 2 mg/dL [facility] Chloride [Moles/Vol] 98 mmol/L 97 - 10 5 mmol/L [facility] CO2 [Moles/Vol] 30 mmol/L 22 - 30 mmol/L [facility] Creatinine [Mass/Vol] 0.94 mg/dL 0.58 - 0.96 mg/dL [facility] Estimated Glomerular Filtration Rate 65 mL/min/1.73m >=60 mL/min/1.73m [facility] Glucose [Mass/Vol] 91 mg/dL 74 - 99 mg/dL [facility] Potassium [Moles/Vol] 4.7 mmol/L 3.7 - 5.1 mmol/L [facility] Sodium [Moles/Vol] 137 mmol/L 136 - 144 mmol/L [facility] Urea nitrogen [Mass/Vol] 15 mg/dL 7 - 21 mg/dL [facility] Anion gap [Moles/Vol] 9 mmol/L Normal 9-18 [facility] Comment on above: Order Comment: Speci men Type: BLOOD SPECIMEN Ordering Facility: [facility] Address: [address] [place] [address] Performed By: #### 2 4321-2 #### [facility] CLIA [id number] [address] [place] [address] [place] Calcium [Mass/Vol] 9.9 mg/dL Normal 8.5-10.2 [facility] Comment on above: Order Comment: Speci men Type: BLOOD SPECIMEN Ordering Facility: [facility] Address: [address] [place] [address] Performed By: #### 2 4321-2 #### [facility] CLIA [id number] [address] [place] [address] [place] Chloride [Moles/Vol] 98 mmol/L Normal 97-105 [facility] Comment on above: Order Comment: Speci men Type: BLOOD SPECIMEN Ordering Facility: [facility] Address: [address] [place] [address] Performed By: #### 2 4321-2 #### [facility] CLIA [id number] [address] [place] [address] [place] CO2 [Moles/Vol] 30 mmol/L Normal 22-30 [facility] Comment on above: Order Comment: Speci men Type: BLOOD SPECIMEN Ordering Facility: [facility] Address: [address] [place] [address] Performed By: #### 2 4321-2 #### [facility] CLIA [id number] [address] [place] [facility] Creatinine [Mass/Vol] 0.94 mg/dL Normal 0.58-0.96 [facility] Comment on above: Order Comment: Valencia kaye Type: BLOOD SPECIMEN Ordering Facility: [facility] Address: [address] [place] [address] Performed By: #### 2 4321-2 #### [facility] CLIA [id number] [address] [place] ESTIMATED GLOMERULAR FILTRATION RATE 65 mL/min/1.73m??? Normal >=60 [facility] Comment on above: Order Comment: Valencia kaye Type: BLOOD SPECIMEN Ordering Facility: [facility] Address: [address] [place] [address] Result Comment: Param mated Glomerular Filtration Rate (eGFR) is calculated using the 2020 CKD-EPI creatinine equation. This equation utilizes serum creatinine, sex, and age as parameters. The creatinine assay has traceable calibration to isotope dilution-mass spectrometry. Refer to KDIGO guidelines for clinical interpretation. In patients with unstable renal function, e.g. those with acute kidney injury, the eGFR may not accurately reflect actual GFR. Performed By: #### 2 4321-2 #### [facility] CLIA [id number] [address] [place] Glucose [Mass/Vol] 91 mg/dL Normal 74-99 [facility] Comment on above: Order Comment: Valencia kaye Type: BLOOD SPECIMEN Ordering Facility: [facility] Address: [address] [place] [address] Result Comment: The [place] Diabetes Association (ADA) provides guidance for cutoff values for fasting glucose and random glucose. The ADA defines fasting as no caloric intake for at least 8 hours. Fasting plasma glucose results between 100 to 125 mg/dL indicate increased risk for diabetes (prediabetes). Fasting plasma glucose results greater than or equal to 126 mg/dL meet the criteria for diagnosis of diabetes. In the absence of unequivocal hyperglycemia, results should be confirmed by repeat testing. In a patient with classic symptoms of hyperglycemia or hyperglycemic crisis, random plasma glucose results greater than or equal to 200 mg/dL meet the criteria for diagnosis of diabetes. Reference: Standards of Medical Care in Diabetes 2016, [place] [employer]. Diabetes Care. 2016.39(Suppl 1). Performed By: #### 2 4321-2 #### [facility] CLIA [id number] [address] [place] Potassium [Moles/Vol] 4.7 mmol/L Normal 3.7-5.1 [facility] Comment on above: Order Comment: Speci men Type: BLOOD SPECIMEN Ordering Facility: [facility] Address: [address] [place] [address] Performed By: #### 2 4321-2 #### [facility] CLIA [id number] [address] [place] [facility] Sodium [Moles/Vol] 137 mmol/L Normal 136-144 [facility] Comment on above: Order Comment: Sarahi mikki Type: BLOOD SPECIMEN Ordering Facility: [facility] Address: [address] [place] [address] Performed By: #### 2 4321-2 #### [facility] CLIA [id number] [address] [place] Urea nitrogen [Mass/Vol] 15 mg/dL Normal 7-21 [facility] Comment on above: Order Comment: Valencia kaye Type: BLOOD SPECIMEN Ordering Facility: [facility] Address: [address] [place] [address] Performed By: #### 2 4321-2 #### [facility] CLIA [id number] [address] [place] [address] [place] CBC panel Auto (Bld)on 07-24 Erythrocyte distribution width (RBC) [Ratio] 12.0 % 11.5 - 15.0 % [facility] Hematocrit (Bld) [Volume fraction] 39.4 % 36.0 - 46.0 % [facility] Hemoglobin (Bld) [Mass/Vol] 12.9 g/dL 11.5 - 15.5 g/dL [facility] MCH (RBC) [Entitic mass] 30.6 pg 26.0 - 34.0 pg [facility] MCHC (RBC) [Mass/Vol] 32.7 g/dL 30.5 - 36.0 g/dL [facility] MCV (RBC) [Entitic vol] 93.6 fL 80.0 - 100.0 fL [facility] Nucleated RBC (Bld) [#/Vol] <0.01 k/uL [facility] Platelet mean volume (Bld) [Entitic vol] 11.2 fL 9.0 - 12.7 fL [facility] Platelets (Bld) [#/Vol] 250 10*3/uL 150 - 400 k/uL [facility] RBC (Bld) [#/Vol] 4.21 10*6/uL 3.90 - 5.2 0 m/uL [facility] WBC (Bld) [#/Vol] 7.84 10*3/uL 3.70 - 11. 00 k/uL [facility] Erythrocyte distribution width (RBC) [Ratio] 12.0 % Normal 11.5-15.0 [facility] Comment on above: Order Comment: Speci mikki Type: BLOOD SPECIMEN Ordering Facility: [facility] Address: [address] [place] [address] Performed By: #### 5 8410-2 #### [facility] CLIA [id number] [address] [place] OF [facility] Hematocrit (Bld) [Volume fraction] 39.4 % Normal 36.0-46.0 [facility] Comment on above: Order Comment: Sarahi men Type: BLOOD SPECIMEN Ordering Facility: [facility] Address: [address] [place] [address] Performed By: #### 5 8410-2 #### [facility] CLIA [id number] [address] [place] [address] [place] Hemoglobin (Bld) [Mass/Vol] 12.9 g/dL Normal 11.5-15.5 [facility] Comment on above: Order Comment: Valencia kaye Type: BLOOD SPECIMEN Ordering Facility: [facility] Address: [address] [place] [address] Performed By: #### 5 8410-2 #### [facility] CLIA [id number] [address] MCH (RBC) [Entitic mass] 30.6 pg Normal 26.0-34.0 [facility] Comment on above: Order Comment: Speci men Type: BLOOD SPECIMEN Ordering Facility: [facility] Address: [address] [place] [address] Performed By: #### 5 8410-2 #### [facility] CLIA [id number] [address] MCHC (RBC) [Mass/Vol] 32.7 g/dL Normal 30.5-36.0 [facility] Comment on above: Order Comment: Speci men Type: BLOOD SPECIMEN Ordering Facility: [facility] Address: [address] [place] [address] Performed By: #### 5 8410-2 #### [facility] CLIA [id number] [address] MCV (RBC) [Entitic vol] 93.6 fL Normal 80.0-100.0 [facility] Comment on above: Order Comment: Speci men Type: BLOOD SPECIMEN Ordering Facility: [facility] Address: [address] [place] [address] Performed By: #### 5 8410-2 #### [facility] CLIA [id number] [address] Nucleated RBC (Bld) [#/Vol] 10*3/uL Normal <0.01 [facility] Comment on above: Order Comment: Speci men Type: BLOOD SPECIMEN Ordering Facility: [facility] Address: [address] [place] [address] Performed By: #### 5 8410-2 #### [facility] CLIA [id number] [address] Platelet mean volume (Bld) [Entitic vol] 11.2 fL Normal 9.0-12.7 [facility] Comment on above: Order Comment: Speci men Type: BLOOD SPECIMEN Ordering Facility: [facility] Address: [address] [place] [address] Performed By: #### 5 8410-2 #### [facility] CLIA [id number] [address] [place] Platelets (Bld) [#/Vol] 250 10*3/uL Normal 150-400 [facility] Comment on above: Order Comment: Speci men Type: BLOOD SPECIMEN Ordering Facility: [facility] Address: [address] [place] [address] Performed By: #### 5 8410-2 #### [facility] CLIA [id number] [address] [place] [address] [place] RBC (Bld) [#/Vol] 4.21 10*6/uL Normal 3.90-5.20 [facility] Comment on above: Order Comment: Speci men Type: BLOOD SPECIMEN Ordering Facility: [facility] Address: [address] [place] [address] Performed By: #### 5 8410-2 #### [facility] CLIA [id number] [address] [place] [address] [place] WBC (Bld) [#/Vol] 7.84 10*3/uL Normal 3.70-11.00 [facility] Comment on above: Order Comment: Speci men Type: BLOOD SPECIMEN Ordering Facility: [facility] Address: [address] [place] [address] Performed By: #### 5 8410-2 #### [facility] CLIA [id number] [address] OF [facility] [place] 07-24-2022 CNPN Telephone (HCSIND) YANELI BASURTO ([id number]) 1950 F NFR Date Time Provider Department 07/24/22 MARGRET NIELSEN During your visit today, we recorded the following information about you: Margret Nielsen LPN 07/24/2022 12:56 PM Signed Welcome Home Call: a. Date and Time: 12:55 PM 07/24/2022 b. Contact name/relationship: Yaneli gaspar. Have you been active with any Home Care company in the last 60 days(such as help with bathing, filling medications, checking your blood pressure) ? No. d. Was patient given Flu shot this Season (After Apr,): No: e. [facility] will be providing your care, are you agreeable to starting these services? yes f. Do you have any upcoming appointments in the next few days, or restrictions to your schedule? no g. Caregiver: No h. Confirmed Visited Location and preferred #: yes Please keep our your medications both over the counter and prescribed out for the home care to review, your hospital discharge instructions and write down any questions you might have. In order to maintain a safe environment for our caregivers, [facility] requires any animals or weapons present in the home be located in a secured location. Our clinicians will call you the night before or the morning of the appointment. Their # may come up restricted but they'll leave a VM for you. In case you have any questions or concerns in the meantime, our # is [phone], option [phone] Thank you for your time and have a great day. Margret Nielsen LPN [facility] Intake Nurse Allergies As of Date: 07/24/2022 Noted Allergy Reaction CORTISONE 08/14/2006 2 - Rash 7 - Swelling Comments: Shoulder injection; flushing, but no hives or sob IODINE 08/14/2006 Comments: Has had trouble with seafood Date Reviewed: 07/15/2017 Reviewed by: Kaitlin ([facility]) RAFAEL Marcos.[employer] ATTENDANT - Fully Assessed Reason for Visit: Home Care [4073] Cmt: Confirmation call Prescriptions as of 07/24/2022 - hydroCHLOROthiazide (HYDRODIURIL, ESIDRIX) 25 mg tablet Take 25 mg by mouth once daily. - Azelastine HCl (OPTIVAR) 0.05 % ophthalmic solution Use 1 Drop in both eyes twice daily as needed. - quinapril (ACCUPRIL) 10 mg tablet Take 10 mg by mouth once daily. - venlafaxine ER (EFFEXOR XR) 37.5 mg 24 hr capsule Take 37.5 mg by mouth once daily. - cholecalciferol, vitamin D3, 4,000 unit cap Take 4,000 Units by mouth once daily. - Omeprazole 20 mg TbEC Take by mouth once daily. - FLUTICASONE PROPIONATE (FLOVENT INHALATION) Inhale 44 mcg as instructed twice daily as needed. 1 puff - chlorthalidone (HYGROTON) 25 mg tablet Take 25 mg by mouth once daily. - metoprolol succinate ER (TOPROL XL) 25 mg 24 hr tablet Take 25 mg by mouth once daily. - POTASSIUM CHLORIDE, BULK, MISC 10 mEq. 10 mEq daily - CALCIUM CARBONATE/VITAMIN D3 (VITAMIN D-3 ORAL) Take 1 tablet by mouth once daily. - albuterol 90 mcg/actuation Aero Inhale 2 Puffs as instructed every 4 hours as needed (shortness of breath/cough/wheeze). With spacer please. - metroNIDAZOLE 1 % gel Apply 1 application to affected area once daily. - loratadine 10 mg tablet Take 1 tablet by mouth once daily. Problem List As Of Date 07/24/2022 Noted Resolved Dysphagia [787.2] 06/08/2015 HYPERTENSION NOS [I10] Iron deficiency anemia, unspecified [D50.9] 06/08/2015 Nausea alone [R11.0] 06/08/2015 Multinodular Goiter [E04.0] Internal hemorrhoids without mention of complic* 06/08/2015 DIAPHRAGMATIC HERNIA [K44.9] REFLUX ESOPHAGITIS [K21.00] ANXIETY STATE NOS [F41.1] Asthma [J45.909] Other vitamin B12 deficiency anemia [D51.8] 12/14/2006 06/08/2015 HERPES SIMPLEX NOS [B00.9] 12/14/2006 Nontoxic multinodular goiter [E04.2] 06/08/2015 Vitamin D Deficiency [E55.9] 07/29/2009 Actinic Keratosis: Premalignant AK: large infla*08/30/2011 06/08/2015 Neoplasm of Uncertain Behavior (NUB) of skin [D*08/30/2011 06/08/2015 Actinic skin damage [L57.8] 08/30/2011 06/08/2015 Solar Lentigines [L81.4] 08/31/2011 06/08/2015 Postinflammatory skin changes [R23.8] 11/18/2011 06/08/2015 Cryosurgical Scar [L90.5] 11/18/2011 06/08/2015 Epidermal cyst [L72.0] 11/18/2011 06/08/2015 Milial cyst [L72.0] 11/18/2011 06/08/2015 Xerosis cutis [L85.3] 11/18/2011 06/08/2015 OA (osteoarthritis) of knee [M17.9] 12/31/2014 Encounter for screening for malignant neoplasm *07/29/2015 07/29/2015 Encounter Status:Closed by MARGRET NIELSEN on 07/24/22 Normal [facility] MAGNESIUM BLDon 07-24-2022 Magnesium [Mass/Vol] 2.2 mg/dL 1.7 - 2 .3 mg/dL [facility] Magnesium SerPl-mCncon 07-24 Magnesium [Mass/Vol] 2.2 mg/dL Normal 1.7-2.3 [facility] Comment on above: Order Comment: Speci men Type: BLOOD SPECIMEN Ordering Facility: [facility] Address: [address] [place] [address] Performed By: #### 5 8410-2 #### [facility] CLIA [id number] [address] [place] [address] [place] [facility] Shelby 07-21-2022 CNPN Telephone (JUSTYNA) YANELI BASURTO ([id number]) 1950 F NFR Date Time Provider Department 07/21/22 MARGRET NIELSEN During your visit today, we recorded the following information about you: Margret Nielsen LPN 07/21/2022 9:44 AM Signed Voice message left requesting a call back to confirm SOC Margret Nielsen LPN [facility] Intake Nurse Allergies As of Date: 07/21/2022 Noted Allergy Reaction CORTISONE 08/14/2006 2 - Rash 7 - Swelling Comments: Shoulder injection; flushing, but no hives or sob IODINE 08/14/2006 Comments: Has had trouble with seafood Date Reviewed: 07/15/2017 Reviewed by: Kaitlin ([facility]) RAFAEL Marcos.[employer] ATTENDANT - Fully Assessed Reason for Visit: Home Care [4073] Cmt: Confirmation call Prescriptions as of 07/21/2022 - hydroCHLOROthiazide (HYDRODIURIL, ESIDRIX) 25 mg tablet Take 25 mg by mouth once daily. - Azelastine HCl (OPTIVAR) 0.05 % ophthalmic solution Use 1 Drop in both eyes twice daily as needed. - quinapril (ACCUPRIL) 10 mg tablet Take 10 mg by mouth once daily. - venlafaxine ER (EFFEXOR XR) 37.5 mg 24 hr capsule Take 37.5 mg by mouth once daily. - cholecalciferol, vitamin D3, 4,000 unit cap Take 4,000 Units by mouth once daily. - Omeprazole 20 mg TbEC Take by mouth once daily. - FLUTICASONE PROPIONATE (FLOVENT INHALATION) Inhale 44 mcg as instructed twice daily as needed. 1 puff - chlorthalidone (HYGROTON) 25 mg tablet Take 25 mg by mouth once daily. - metoprolol succinate ER (TOPROL XL) 25 mg 24 hr tablet Take 25 mg by mouth once daily. - POTASSIUM CHLORIDE, BULK, MISC 10 mEq. 10 mEq daily - CALCIUM CARBONATE/VITAMIN D3 (VITAMIN D-3 ORAL) Take 1 tablet by mouth once daily. - albuterol 90 mcg/actuation Aero Inhale 2 Puffs as instructed every 4 hours as needed (shortness of breath/cough/wheeze). With spacer please. - metroNIDAZOLE 1 % gel Apply 1 application to affected area once daily. - loratadine 10 mg tablet Take 1 tablet by mouth once daily. 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.2] 06/08/2015 Vitamin D Deficiency [E55.9] 07/29/2009 Actinic Keratosis: Premalignant AK: large infla*08/30/2011 06/08/2015 Neoplasm of Uncertain Behavior (NUB) of skin [D*08/30/2011 06/08/2015 Actinic skin damage [L57.8] 08/30/2011 06/08/2015 Solar Lentigines [L81.4] 08/31/2011 06/08/2015 Postinflammatory skin changes [R23.8] 11/18/2011 06/08/2015 Cryosurgical Scar [L90.5] 11/18/2011 06/08/2015 Epidermal cyst [L72.0] 11/18/2011 06/08/2015 Milial cyst [L72.0] 11/18/2011 06/08/2015 Xerosis cutis [L85.3] 11/18/2011 06/08/2015 OA (osteoarthritis) of knee [M17.9] 12/31/2014 Encounter for screening for malignant neoplasm *07/29/2015 07/29/2015 Encounter Status:Closed by MARGRET NIELSEN on 07/21/22 Normal [facility] Basic metabolic 2000 panelon 07-20-2022 Anion gap [Moles/Vol] 10 mmol/L 9 - 18 mmol/L [facility] Calcium [Mass/Vol] 9.9 mg/dL 8.5 - 10. 2 mg/dL [facility] Chloride [Moles/Vol] 101 mmol/L 97 - 10 5 mmol/L [facility] CO2 [Moles/Vol] 26 mmol/L 22 - 30 mmol/L [facility] Creatinine [Mass/Vol] 0.83 mg/dL 0.58 - 0.96 mg/dL [facility] Estimated Glomerular Filtration Rate 75 mL/min/1.73m >=60 mL/min/1.73m [facility] Glucose [Mass/Vol] 136 mg/dL High 74 - 99 mg/dL [facility] Potassium [Moles/Vol] 4.5 mmol/L 3.7 - 5.1 mmol/L [facility] Sodium [Moles/Vol] 137 mmol/L 136 - 144 mmol/L [facility] Urea nitrogen [Mass/Vol] 13 mg/dL 7 - 21 mg/dL [facility] Anion gap [Moles/Vol] 10 mmol/L Normal 9-18 [facility] Comment on above: Order Comment: Speci men Type: BLOOD SPECIMEN Ordering Facility: [facility] Address: [address] [place] [address] Performed By: #### 2 4321-2 #### [facility] CLIA [id number] [address] [place] [address] [place] Calcium [Mass/Vol] 9.9 mg/dL Normal 8.5-10.2 [facility] Comment on above: Order Comment: Speci men Type: BLOOD SPECIMEN Ordering Facility: [facility] Address: [address] [place] [address] Performed By: #### 2 4321-2 #### [facility] CLIA [id number] [address] [place] [address] [place] Chloride [Moles/Vol] 101 mmol/L Normal 97-105 [facility] Comment on above: Order Comment: Speci men Type: BLOOD SPECIMEN Ordering Facility: [facility] Address: [address] [place] [address] Performed By: #### 2 4321-2 #### [facility] CLIA [id number] [address] [place] [address] [place] CO2 [Moles/Vol] 26 mmol/L Normal 22-30 [facility] Comment on above: Order Comment: Speci men Type: BLOOD SPECIMEN Ordering Facility: [facility] Address: [address] [place] [address] Performed By: #### 2 4321-2 #### [facility] CLIA [id number] [address] [place] [address] [place] Creatinine [Mass/Vol] 0.83 mg/dL Normal 0.58-0.96 [facility] Comment on above: Order Comment: Valencia kaye Type: BLOOD SPECIMEN Ordering Facility: [facility] Address: [address] [place] [address] Performed By: #### 2 4321-2 #### [facility] CLIA [id number] [address] [place] [address] [place] ESTIMATED GLOMERULAR FILTRATION RATE 75 mL/min/1.73m??? Normal >=60 [facility] Comment on above: Order Comment: Valencia kaye Type: BLOOD SPECIMEN Ordering Facility: [facility] Address: [address] [place] [address] Result Comment: Param mated Glomerular Filtration Rate (eGFR) is calculated using the 2020 CKD-EPI creatinine equation. This equation utilizes serum creatinine, sex, and age as parameters. The creatinine assay has traceable calibration to isotope dilution-mass spectrometry. Refer to KDIGO guidelines for clinical interpretation. In patients with unstable renal function, e.g. those with acute kidney injury, the eGFR may not accurately reflect actual GFR. Performed By: #### 2 4321-2 #### [facility] CLIA [id number] [address] [place] [address] [place] Glucose [Mass/Vol] 136 mg/dL High 74-99 [facility] Comment on above: Order Comment: Valencia kaye Type: BLOOD SPECIMEN Ordering Facility: [facility] Address: [address] [place] [address] Result Comment: The [place] Diabetes [employer] (ADA) provides guidance for cutoff values for fasting glucose and random glucose. The ADA defines fasting as no caloric intake for at least 8 hours. Fasting plasma glucose results between 100 to 125 mg/dL indicate increased risk for diabetes (prediabetes). Fasting plasma glucose results greater than or equal to 126 mg/dL meet the criteria for diagnosis of diabetes. In the absence of unequivocal hyperglycemia, results should be confirmed by repeat testing. In a patient with classic symptoms of hyperglycemia or hyperglycemic crisis, random plasma glucose results greater than or equal to 200 mg/dL meet the criteria for diagnosis of diabetes. Reference: Standards of Medical Care in Diabetes 2016, [place] [employer]. Diabetes Care. 2016.39(Suppl 1). Performed By: #### 2 4321-2 #### [facility] CLIA [id number] [address] [place] [address] [place] Potassium [Moles/Vol] 4.5 mmol/L Normal 3.7-5.1 [facility] Comment on above: Order Comment: Valencia kaye Type: BLOOD SPECIMEN Ordering Facility: [facility] Address: [address] [place] [address] Performed By: #### 2 4321-2 #### [facility] CLIA [id number] [address] [place] [address] [place] Sodium [Moles/Vol] 137 mmol/L Normal 136-144 [facility] Comment on above: Order Comment: Valencia kaye Type: BLOOD SPECIMEN Ordering Facility: [facility] Address: [address] [place] [address] Performed By: #### 2 4321-2 #### [facility] CLIA [id number] [address] [place] [address] [place] Urea nitrogen [Mass/Vol] 13 mg/dL Normal 7-21 [facility] Comment on above: Order Comment: Valencia kaye Type: BLOOD SPECIMEN Ordering Facility: [facility] Address: [address] [place] [address] Performed By: #### 2 4321-2 #### [facility] CLIA [id number] [address] [place] [address] [place] CBC panel Auto (Bld)on 07-20 Erythrocyte distribution width (RBC) [Ratio] 12.2 % 11.5 - 15.0 % [facility] Hematocrit (Bld) [Volume fraction] 39.8 % 36.0 - 46.0 % [facility] Hemoglobin (Bld) [Mass/Vol] 13.1 g/dL 11.5 - 15.5 g/dL [facility] MCH (RBC) [Entitic mass] 30.6 pg 26.0 - 34.0 pg [facility] MCHC (RBC) [Mass/Vol] 32.9 g/dL 30.5 - 36.0 g/dL [facility] MCV (RBC) [Entitic vol] 93.0 fL 80.0 - 100.0 fL [facility] Nucleated RBC (Bld) [#/Vol] <0.01 k/uL [facility] Platelet mean volume (Bld) [Entitic vol] 10.8 fL 9.0 - 12.7 fL [facility] Platelets (Bld) [#/Vol] 295 10*3/uL 150 - 400 k/uL [facility] RBC (Bld) [#/Vol] 4.28 10*6/uL 3.90 - 5.2 0 m/uL [facility] WBC (Bld) [#/Vol] 6.33 10*3/uL 3.70 - 11. 00 k/uL [facility] Erythrocyte distribution width (RBC) [Ratio] 12.2 % Normal 11.5-15.0 [facility] Comment on above: Order Comment: Valencia kaye Type: BLOOD SPECIMEN Ordering Facility: [facility] Address: [address] [place] [address] Performed By: #### 5 8410-2 #### [facility] CLIA [id number] [address] STATES OF [facility] Hematocrit (Bld) [Volume fraction] 39.8 % Normal 36.0-46.0 [facility] Comment on above: Order Comment: Valencia kaye Type: BLOOD SPECIMEN Ordering Facility: [facility] Address: [address] [place] [address] Performed By: #### 5 8410-2 #### [facility] CLIA [id number] [address] [place] Hemoglobin (Bld) [Mass/Vol] 13.1 g/dL Normal 11.5-15.5 [facility] Comment on above: Order Comment: Valencia kaye Type: BLOOD SPECIMEN Ordering Facility: [facility] Address: [address] [place] [address] Performed By: #### 5 8410-2 #### [facility] CLIA [id number] [address] [place] [address] [place] MCH (RBC) [Entitic mass] 30.6 pg Normal 26.0-34.0 [facility] Comment on above: Order Comment: Speci men Type: BLOOD SPECIMEN Ordering Facility: [facility] Address: [address] [place] [address] Performed By: #### 5 8410-2 #### [facility] CLIA [id number] [address] MCHC (RBC) [Mass/Vol] 32.9 g/dL Normal 30.5-36.0 [facility] Comment on above: Order Comment: Speci men Type: BLOOD SPECIMEN Ordering Facility: [facility] Address: [address] [place] [address] Performed By: #### 5 8410-2 #### [facility] CLIA [id number] [address] MCV (RBC) [Entitic vol] 93.0 fL Normal 80.0-100.0 [facility] Comment on above: Order Comment: Speci men Type: BLOOD SPECIMEN Ordering Facility: [facility] Address: [address] [place] [address] Performed By: #### 5 8410-2 #### [facility] CLIA [id number] [address] Nucleated RBC (Bld) [#/Vol] 10*3/uL Normal <0.01 [facility] Comment on above: Order Comment: Speci men Type: BLOOD SPECIMEN Ordering Facility: [facility] Address: [address] [place] [address] Performed By: #### 5 8410-2 #### [facility] CLIA [id number] [address] Platelet mean volume (Bld) [Entitic vol] 10.8 fL Normal 9.0-12.7 [facility] Comment on above: Order Comment: Speci men Type: BLOOD SPECIMEN Ordering Facility: [facility] Address: [address] [place] [address] Performed By: #### 5 8410-2 #### [facility] CLIA [id number] [address] [place] Platelets (Bld) [#/Vol] 295 10*3/uL Normal 150-400 [facility] Comment on above: Order Comment: Speci men Type: BLOOD SPECIMEN Ordering Facility: [facility] Address: [address] [place] [address] Performed By: #### 5 8410-2 #### [facility] CLIA [id number] [address] [place] [address] [place] RBC (Bld) [#/Vol] 4.28 10*6/uL Normal 3.90-5.20 [facility] Comment on above: Order Comment: Speci men Type: BLOOD SPECIMEN Ordering Facility: [facility] Address: [address] [place] [address] Performed By: #### 5 8410-2 #### [facility] CLIA [id number] [address] [place] [address] [place] WBC (Bld) [#/Vol] 6.33 10*3/uL Normal 3.70-11.00 [facility] Comment on above: Order Comment: Speci men Type: BLOOD SPECIMEN Ordering Facility: [facility] Address: [address] [place] [address] Performed By: #### 5 8410-2 #### [facility] CLIA [id number] [address] [place] [address] [place] MAGNESIUM BLDon 07-20-2022 Magnesium [Mass/Vol] 2.0 mg/dL 1.7 - 2 .3 mg/dL [facility] Magnesium SerPl-mCncon 07-20 Magnesium [Mass/Vol] 2.0 mg/dL Normal 1.7-2.3 [facility] Comment on above: Order Comment: Speci men Type: BLOOD SPECIMEN Ordering Facility: [facility] Address: [address] [place] [address] Performed By: #### 5 8410-2 #### [facility] CLIA [id number] [address] [place] [address] [place] CNPLaine 07-18-2022 CNPN Telephone (HCSIND) YANELI BASURTO ([id number]) 1950 F NFR Date Time Provider Department 07/18/22 MARGRET NIELSEN During your visit today, we recorded the following information about you: Margret Nielsen LPN 07/18/2022 1:59 PM Signed Voice message left for Dr. Astorga's nurse requesting a call back to confirm if the Doctor will follow for [facility] services Margret Nielsen LPN [facility] Nurse Margret Nielsen LPN 07/18/2022 3:39 PM Signed Per Ronda, Doctor Astorga will follow for [facility] services Margret Nielsen LPN [facility] Nurse Allergies As of Date: 07/18/2022 Noted Allergy Reaction CORTISONE 08/14/2006 2 - Rash 7 - Swelling Comments: Shoulder injection; flushing, but no hives or sob IODINE 08/14/2006 Comments: Has had trouble with seafood Date Reviewed: 07/15/2017 Reviewed by: Kaitlin ([facility]) RAFAEL Marcos.[employer] ATTENDANT - Fully Assessed Reason for Visit: Home Care [4073] Cmt: MD to follow Prescriptions as of 07/18/2022 - hydroCHLOROthiazide (HYDRODIURIL, ESIDRIX) 25 mg tablet Take 25 mg by mouth once daily. - Azelastine HCl (OPTIVAR) 0.05 % ophthalmic solution Use 1 Drop in both eyes twice daily as needed. - quinapril (ACCUPRIL) 10 mg tablet Take 10 mg by mouth once daily. - venlafaxine ER (EFFEXOR XR) 37.5 mg 24 hr capsule Take 37.5 mg by mouth once daily. - cholecalciferol, vitamin D3, 4,000 unit cap Take 4,000 Units by mouth once daily. - Omeprazole 20 mg TbEC Take by mouth once daily. - FLUTICASONE PROPIONATE (FLOVENT INHALATION) Inhale 44 mcg as instructed twice daily as needed. 1 puff - chlorthalidone (HYGROTON) 25 mg tablet Take 25 mg by mouth once daily. - metoprolol succinate ER (TOPROL XL) 25 mg 24 hr tablet Take 25 mg by mouth once daily. - POTASSIUM CHLORIDE, BULK, MISC 10 mEq. 10 mEq daily - CALCIUM CARBONATE/VITAMIN D3 (VITAMIN D-3 ORAL) Take 1 tablet by mouth once daily. - albuterol 90 mcg/actuation Aero Inhale 2 Puffs as instructed every 4 hours as needed (shortness of breath/cough/wheeze). With spacer please. - metroNIDAZOLE 1 % gel Apply 1 application to affected area once daily. - loratadine 10 mg tablet Take 1 tablet by mouth once daily. Problem List As Of Date 07/18/2022 Noted Resolved Dysphagia [787.2] 06/08/2015 HYPERTENSION NOS [I10] Iron deficiency anemia, unspecified [D50.9] 06/08/2015 Nausea alone [R11.0] 06/08/2015 Multinodular Goiter [E04.0] Internal hemorrhoids without mention of complic* 06/08/2015 DIAPHRAGMATIC HERNIA [K44.9] REFLUX ESOPHAGITIS [K21.00] ANXIETY STATE NOS [F41.1] Asthma [J45.909] Other vitamin B12 deficiency anemia [D51.8] 12/14/2006 06/08/2015 HERPES SIMPLEX NOS [B00.9] 12/14/2006 Nontoxic multinodular goiter [E04.2] 06/08/2015 Vitamin D Deficiency [E55.9] 07/29/2009 Actinic Keratosis: Premalignant AK: large infla*08/30/2011 06/08/2015 Neoplasm of Uncertain Behavior (NUB) of skin [D*08/30/2011 06/08/2015 Actinic skin damage [L57.8] 08/30/2011 06/08/2015 Solar Lentigines [L81.4] 08/31/2011 06/08/2015 Postinflammatory skin changes [R23.8] 11/18/2011 06/08/2015 Cryosurgical Scar [L90.5] 11/18/2011 06/08/2015 Epidermal cyst [L72.0] 11/18/2011 06/08/2015 Milial cyst [L72.0] 11/18/2011 06/08/2015 Xerosis cutis [L85.3] 11/18/2011 06/08/2015 OA (osteoarthritis) of knee [M17.9] 12/31/2014 Encounter for screening for malignant neoplasm *07/29/2015 07/29/2015 Encounter Status:Closed by MARGRET NIELSEN on 07/18/22 Normal [facility] Basic metabolic 2000 panelon 07-17-2022 Anion gap [Moles/Vol] 6 mmol/L Low 9 - 18 mmol/L [facility] Calcium [Mass/Vol] 9.7 mg/dL 8.5 - 10. 2 mg/dL [facility] Chloride [Moles/Vol] 103 mmol/L 97 - 10 5 mmol/L [facility] CO2 [Moles/Vol] 30 mmol/L 22 - 30 mmol/L [facility] Creatinine [Mass/Vol] 0.94 mg/dL 0.58 - 0.96 mg/dL [facility] Estimated Glomerular Filtration Rate 65 mL/min/1.73m >=60 mL/min/1.73m [facility] Glucose [Mass/Vol] 105 mg/dL High 74 - 99 mg/dL [facility] Potassium [Moles/Vol] 4.9 mmol/L 3.7 - 5.1 mmol/L [facility] Sodium [Moles/Vol] 139 mmol/L 136 - 144 mmol/L [facility] Urea nitrogen [Mass/Vol] 12 mg/dL 7 - 21 mg/dL [facility] Anion gap [Moles/Vol] 6 mmol/L Low 9-18 [facility] Comment on above: Order Comment: Speci men Type: BLOOD SPECIMEN [facility]ing Facility: [facility] Address: [address] [place] [address] Performed By: #### 5 8410-2 #### [facility] CLIA [id number] [address] OF [facility] Calcium [Mass/Vol] 9.7 mg/dL Normal 8.5-10.2 [facility] Comment on above: Order Comment: Speci men Type: BLOOD SPECIMEN Ordering Facility: [facility] Address: [address] [place] [address] Performed By: #### 5 8410-2 #### [facility] CLIA [id number] [address] [place] [address] [place] Chloride [Moles/Vol] 103 mmol/L Normal 97-105 [facility] Comment on above: Order Comment: Speci men Type: BLOOD SPECIMEN Ordering Facility: [facility] Address: [address] [place] [address] Performed By: #### 5 8410-2 #### [facility] CLIA [id number] [address] [place] [address] [place] CO2 [Moles/Vol] 30 mmol/L Normal 22-30 [facility] Comment on above: Order Comment: Speci men Type: BLOOD SPECIMEN Ordering Facility: [facility] Address: [address] [place] [address] Performed By: #### 5 8410-2 #### [facility] CLIA [id number] [address] [place] [address] [place] Creatinine [Mass/Vol] 0.94 mg/dL Normal 0.58-0.96 [facility] Comment on above: Order Comment: Speci men Type: BLOOD SPECIMEN Ordering Facility: [facility] Address: [address] [place] [address] Performed By: #### 5 8410-2 #### [facility] CLIA [id number] [address] STRE[address] ESTIMATED GLOMERULAR FILTRATION RATE 65 mL/min/1.73m??? Normal >=60 [facility] Comment on above: Order Comment: Speci men Type: BLOOD SPECIMEN Ordering Facility: [facility] Address: [address] [place] [address] Result Comment: Param mated Glomerular Filtration Rate (eGFR) is calculated using the 2020 CKD-EPI creatinine equation. This equation utilizes serum creatinine, sex, and age as parameters. The creatinine assay has traceable calibration to isotope dilution-mass spectrometry. Refer to KDIGO guidelines for clinical interpretation. In patients with unstable renal function, e.g. those with acute kidney injury, the eGFR may not accurately reflect actual GFR. Performed By: #### 5 8410-2 #### [facility] CLIA [id number] [address] [place] [address] [place] Glucose [Mass/Vol] 105 mg/dL High 74-99 [facility] Comment on above: Order Comment: Valencia men Type: BLOOD SPECIMEN Ordering Facility: [facility] Address: [address] [place] [address] Result Comment: The [place] Diabetes [employer] (ADA) provides guidance for cutoff values for fasting glucose and random glucose. The ADA defines fasting as no caloric intake for at least 8 hours. Fasting plasma glucose results between 100 to 125 mg/dL indicate increased risk for diabetes (prediabetes). Fasting plasma glucose results greater than or equal to 126 mg/dL meet the criteria for diagnosis of diabetes. In the absence of unequivocal hyperglycemia, results should be confirmed by repeat testing. In a patient with classic symptoms of hyperglycemia or hyperglycemic crisis, random plasma glucose results greater than or equal to 200 mg/dL meet the criteria for diagnosis of diabetes. Reference: Standards of Medical Care in Diabetes 2016, [place] [employer]. Diabetes Care. 2016.39(Suppl 1). Performed By: #### 5 8410-2 #### [facility] CLIA [id number] [address] [place] [address] [place] Potassium [Moles/Vol] 4.9 mmol/L Normal 3.7-5.1 [facility] Comment on above: Order Comment: Valencia kaye Type: BLOOD SPECIMEN Ordering Facility: [facility] Address: [address] [place] [address] Performed By: #### 5 8410-2 #### [facility] CLIA [id number] [address] [place] [address] [place] Sodium [Moles/Vol] 139 mmol/L Normal 136-144 [facility] Comment on above: Order Comment: Sarahi men Type: BLOOD SPECIMEN Ordering Facility: [facility] Address: [address] [place] [address] Performed By: #### 5 8410-2 #### [facility] CLIA [id number] [address] [place] [address] [place] Urea nitrogen [Mass/Vol] 12 mg/dL Normal 7-21 [facility] Comment on above: Order Comment: Speci men Type: BLOOD SPECIMEN Ordering Facility: [facility] Address: [address] [place] [address] Performed By: #### 5 8410-2 #### [facility] CLIA [id number] [address] STATES OF [facility] CBC panel Auto (Bld)on 07-17 Erythrocyte distribution width (RBC) [Ratio] 12.2 % 11.5 - 15.0 % [facility] Hematocrit (Bld) [Volume fraction] 36.6 % 36.0 - 46.0 % [facility] Hemoglobin (Bld) [Mass/Vol] 12.0 g/dL 11.5 - 15.5 g/dL [facility] MCH (RBC) [Entitic mass] 30.6 pg 26.0 - 34.0 pg [facility] MCHC (RBC) [Mass/Vol] 32.8 g/dL 30.5 - 36.0 g/dL [facility] MCV (RBC) [Entitic vol] 93.4 fL 80.0 - 100.0 fL [facility] Nucleated RBC (Bld) [#/Vol] <0.01 k/uL [facility] Platelet mean volume (Bld) [Entitic vol] 10.8 fL 9.0 - 12.7 fL [facility] Platelets (Bld) [#/Vol] 257 10*3/uL 150 - 400 k/uL [facility] RBC (Bld) [#/Vol] 3.92 10*6/uL 3.90 - 5.2 0 m/uL [facility] WBC (Bld) [#/Vol] 7.46 10*3/uL 3.70 - 11. 00 k/uL [facility] Erythrocyte distribution width (RBC) [Ratio] 12.2 % Normal 11.5-15.0 [facility] Comment on above: Order Comment: Valencia kaye Type: BLOOD SPECIMEN Ordering Facility: [facility] Address: [address] [place] [address] Performed By: #### 5 8410-2 #### [facility] CLIA [id number] [address] Hematocrit (Bld) [Volume fraction] 36.6 % Normal 36.0-46.0 [facility] Comment on above: Order Comment: Speci men Type: BLOOD SPECIMEN Ordering Facility: [facility] Address: [address] [place] [address] Performed By: #### 5 8410-2 #### [facility] CLIA [id number] [address] Hemoglobin (Bld) [Mass/Vol] 12.0 g/dL Normal 11.5-15.5 [facility] Comment on above: Order Comment: Speci men Type: BLOOD SPECIMEN Ordering Facility: [facility] Address: [address] [place] [address] Performed By: #### 5 8410-2 #### [facility] CLIA [id number] [address] MCH (RBC) [Entitic mass] 30.6 pg Normal 26.0-34.0 [facility] Comment on above: Order Comment: Speci men Type: BLOOD SPECIMEN Ordering Facility: [facility] Address: [address] [place] [address] Performed By: #### 5 8410-2 #### [facility] CLIA [id number] [address] MCHC (RBC) [Mass/Vol] 32.8 g/dL Normal 30.5-36.0 [facility] Comment on above: Order Comment: Speci men Type: BLOOD SPECIMEN Ordering Facility: [facility] Address: [address] [place] [address] Performed By: #### 5 8410-2 #### [facility] CLIA [id number] [address] MCV (RBC) [Entitic vol] 93.4 fL Normal 80.0-100.0 [facility] Comment on above: Order Comment: Speci men Type: BLOOD SPECIMEN Ordering Facility: [facility] Address: [address] [place] [address] Performed By: #### 5 8410-2 #### [facility] CLIA [id number] [address] [place] [address] [place] Nucleated RBC (Bld) [#/Vol] 10*3/uL Normal <0.01 [facility] Comment on above: Order Comment: Speci men Type: BLOOD SPECIMEN Ordering Facility: [facility] Address: [address] [place] [address] Performed By: #### 5 8410-2 #### [facility] CLIA [id number] [address] [place] [address] [place] Platelet mean volume (Bld) [Entitic vol] 10.8 fL Normal 9.0-12.7 [facility] Comment on above: Order Comment: Speci men Type: BLOOD SPECIMEN Ordering Facility: [facility] Address: [address] [place] [address] Performed By: #### 5 8410-2 #### [facility] CLIA [id number] [address] [place] [address] [place] Platelets (Bld) [#/Vol] 257 10*3/uL Normal 150-400 [facility] Comment on above: Order Comment: Speci men Type: BLOOD SPECIMEN Ordering Facility: [facility] Address: [address] [place] [address] Performed By: #### 5 8410-2 #### [facility] CLIA [id number] [address] [place] [address] [place] RBC (Bld) [#/Vol] 3.92 10*6/uL Normal 3.90-5.20 [facility] Comment on above: Order Comment: Speci men Type: BLOOD SPECIMEN Ordering Facility: [facility] Address: [address] [place] [address] Performed By: #### 5 8410-2 #### [facility] CLIA [id number] [address] [place] [address] [place] WBC (Bld) [#/Vol] 7.46 10*3/uL Normal 3.70-11.00 [facility] Comment on above: Order Comment: Speci men Type: BLOOD SPECIMEN Ordering Facility: [facility] Address: [address] [place] [address] Performed By: #### 5 8410-2 #### [facility] CLIA [id number] [address] [place] [address] [place] MAGNESIUM BLDon 07-17-2022 Magnesium [Mass/Vol] 2.0 mg/dL 1.7 - 2 .3 mg/dL [facility] Magnesium SerPl-mCncon 07-17 Magnesium [Mass/Vol] 2.0 mg/dL Normal 1.7-2.3 [facility] Comment on above: Order Comment: Speci men Type: BLOOD SPECIMEN Ordering Facility: [facility] Address: [address] [place] [address] Performed By: #### 1 9123-9 #### [facility] CLIA [id number] [address] [place] [id number] [place] Basic metabolic 2000 panelon 07-13-2022 Anion gap [Moles/Vol] 8 mmol/L Low 9 - 18 mmol/L [facility] Calcium [Mass/Vol] 9.7 mg/dL 8.5 - 10. 2 mg/dL [facility] Chloride [Moles/Vol] 105 mmol/L 97 - 10 5 mmol/L [facility] CO2 [Moles/Vol] 27 mmol/L 22 - 30 mmol/L [facility] Creatinine [Mass/Vol] 0.91 mg/dL 0.58 - 0.96 mg/dL [facility] Estimated Glomerular Filtration Rate 67 mL/min/1.73m >=60 mL/min/1.73m [facility] Glucose [Mass/Vol] 104 mg/dL High 74 - 99 mg/dL [facility] Potassium [Moles/Vol] 4.4 mmol/L 3.7 - 5.1 mmol/L [facility] Sodium [Moles/Vol] 140 mmol/L 136 - 144 mmol/L [facility] Urea nitrogen [Mass/Vol] 16 mg/dL 7 - 21 mg/dL [facility] Anion gap [Moles/Vol] 8 mmol/L Low 9-18 [facility] [place] Comment on above: Order Comment: Speci men Type: BLOOD SPECIMEN Ordering Facility: [facility] Address: [address] [place] [address] Performed By: #### 5 8410-2 #### [facility] CLIA [id number] [address] [place] [address] [place] Calcium [Mass/Vol] 9.7 mg/dL Normal 8.5-10.2 [facility] Comment on above: Order Comment: Speci men Type: BLOOD SPECIMEN Ordering Facility: [facility] Address: [address] [place] [address] Performed By: #### 5 8410-2 #### [facility] CLIA [id number] [address] [place] [address] [place] Chloride [Moles/Vol] 105 mmol/L Normal 97-105 [facility] Comment on above: Order Comment: Speci men Type: BLOOD SPECIMEN Ordering Facility: [facility] Address: [address] [place] [address] Performed By: #### 5 8410-2 #### [facility] CLIA [id number] [address] [place] [address] [place] CO2 [Moles/Vol] 27 mmol/L Normal 22-30 [facility] Comment on above: Order Comment: Speci men Type: BLOOD SPECIMEN Ordering Facility: [facility] Address: [address] [place] [address] Performed By: #### 5 8410-2 #### [facility] CLIA [id number] [address] [place] [address] [place] Creatinine [Mass/Vol] 0.91 mg/dL Normal 0.58-0.96 [facility] [place] Comment on above: Order Comment: Speci men Type: BLOOD SPECIMEN Ordering Facility: [facility] Address: [address] [place] [address] Performed By: #### 5 8410-2 #### [facility] CLIA [id number] [address] [place] [address] [place] ESTIMATED GLOMERULAR FILTRATION RATE 67 mL/min/1.73m??? Normal >=60 [facility] Comment on above: Order Comment: Speci men Type: BLOOD SPECIMEN Ordering Facility: [facility] Address: [address] [place] [address], [place] [address] Result Comment: Param mated Glomerular Filtration Rate (eGFR) is calculated using the 2020 CKD-EPI creatinine equation. This equation utilizes serum creatinine, sex, and age as parameters. The creatinine assay has traceable calibration to isotope dilution-mass spectrometry. Refer to KDIGO guidelines for clinical interpretation. In patients with unstable renal function, e.g. those with acute kidney injury, the eGFR may not accurately reflect actual GFR. Performed By: #### 5 8410-2 #### [facility] CLIA [id number] [address] [place] [address] [place] Glucose [Mass/Vol] 104 mg/dL High 74-99 [facility] Comment on above: Order Comment: Valencia kaye Type: BLOOD SPECIMEN Ordering Facility: [facility] Address: [address] [place] [address] Result Comment: The [place] Diabetes [employer] (ADA) provides guidance for cutoff values for fasting glucose and random glucose. The ADA defines fasting as no caloric intake for at least 8 hours. Fasting plasma glucose results between 100 to 125 mg/dL indicate increased risk for diabetes (prediabetes). Fasting plasma glucose results greater than or equal to 126 mg/dL meet the criteria for diagnosis of diabetes. In the absence of unequivocal hyperglycemia, results should be confirmed by repeat testing. In a patient with classic symptoms of hyperglycemia or hyperglycemic crisis, random plasma glucose results greater than or equal to 200 mg/dL meet the criteria for diagnosis of diabetes. Reference: Standards of Medical Care in Diabetes 2016, [place] [employer]. Diabetes Care. 2016.39(Suppl 1). Performed By: #### 5 8410-2 #### [facility] CLIA [id number] [address] [place] [address] [place] Potassium [Moles/Vol] 4.4 mmol/L Normal 3.7-5.1 [facility] [place] Comment on above: Order Comment: Valencia kaye Type: BLOOD SPECIMEN Ordering Facility: [facility] Address: [address] [place] [address] Performed By: #### 5 8410-2 #### [facility] CLIA [id number] [address] [place] [address] [place] Sodium [Moles/Vol] 140 mmol/L Normal 136-144 [facility] Comment on above: Order Comment: Speci men Type: BLOOD SPECIMEN Ordering Facility: [facility] Address: [address] [place] [address] Performed By: #### 5 8410-2 #### [facility] CLIA [id number] [address] [place] Urea nitrogen [Mass/Vol] 16 mg/dL Normal 7-21 [facility] Comment on above: Order Comment: Speci men Type: BLOOD SPECIMEN Ordering Facility: [facility] Address: [address] [place] [address] Performed By: #### 5 8410-2 #### [facility] CLIA [id number] [address] [place] CBC panel Auto (Bld)on 07-13 Erythrocyte distribution width (RBC) [Ratio] 12.3 % 11.5 - 15.0 % [facility] Hematocrit (Bld) [Volume fraction] 37.7 % 36.0 - 46.0 % [facility] Hemoglobin (Bld) [Mass/Vol] 12.2 g/dL 11.5 - 15.5 g/dL [facility] MCH (RBC) [Entitic mass] 30.0 pg 26.0 - 34.0 pg [facility] MCHC (RBC) [Mass/Vol] 32.4 g/dL 30.5 - 36.0 g/dL [facility] MCV (RBC) [Entitic vol] 92.9 fL 80.0 - 100.0 fL [facility] Nucleated RBC (Bld) [#/Vol] <0.01 k/uL [facility] Platelet mean volume (Bld) [Entitic vol] 10.6 fL 9.0 - 12.7 fL [facility] Platelets (Bld) [#/Vol] 260 10*3/uL 150 - 400 k/uL [facility] RBC (Bld) [#/Vol] 4.06 10*6/uL 3.90 - 5.2 0 m/uL [facility] WBC (Bld) [#/Vol] 7.33 10*3/uL 3.70 - 11. 00 k/uL [facility] Erythrocyte distribution width (RBC) [Ratio] 12.3 % Normal 11.5-15.0 [facility] Comment on above: Order Comment: Speci men Type: BLOOD SPECIMEN Ordering Facility: [facility] Address: [address] [place] [address] Performed By: #### 5 8410-2 #### [facility] CLIA [id number] [address] OF [facility] Hematocrit (Bld) [Volume fraction] 37.7 % Normal 36.0-46.0 [facility] Comment on above: Order Comment: Speci men Type: BLOOD SPECIMEN Ordering Facility: [facility] Address: [address] [place] [address] Performed By: #### 5 8410-2 #### [facility] CLIA [id number] [address] [place] Hemoglobin (Bld) [Mass/Vol] 12.2 g/dL Normal 11.5-15.5 [facility] Comment on above: Order Comment: Speci men Type: BLOOD SPECIMEN Ordering Facility: [facility] Address: [address] [place] [address] Performed By: #### 5 8410-2 #### [facility] CLIA [id number] [address] MCH (RBC) [Entitic mass] 30.0 pg Normal 26.0-34.0 [facility] Comment on above: Order Comment: Speci men Type: BLOOD SPECIMEN Ordering Facility: [facility] Address: [address] [place] [address] Performed By: #### 5 8410-2 #### [facility] CLIA [id number] [address] [place] MCHC (RBC) [Mass/Vol] 32.4 g/dL Normal 30.5-36.0 [facility] [place] Comment on above: Order Comment: Speci men Type: BLOOD SPECIMEN Ordering Facility: [facility] Address: [address] [place] [address] Performed By: #### 5 8410-2 #### [facility] CLIA [id number] [address] [place] MCV (RBC) [Entitic vol] 92.9 fL Normal 80.0-100.0 [facility] Comment on above: Order Comment: Speci men Type: BLOOD SPECIMEN Ordering Facility: [facility] Address: [address] [place] [address] Performed By: #### 5 8410-2 #### [facility] CLIA [id number] [address] [place] [address] [place] Nucleated RBC (Bld) [#/Vol] 10*3/uL Normal <0.01 [facility] Comment on above: Order Comment: Speci men Type: BLOOD SPECIMEN Ordering Facility: [facility] Address: [address] [place] [address] Performed By: #### 5 8410-2 #### [facility] CLIA [id number] [address] [place] [address] [place] Platelet mean volume (Bld) [Entitic vol] 10.6 fL Normal 9.0-12.7 [facility] Comment on above: Order Comment: Speci men Type: BLOOD SPECIMEN Ordering Facility: [facility] Address: [address] [place] [address] Performed By: #### 5 8410-2 #### [facility] CLIA [id number] [address] [place] [address] [place] Platelets (Bld) [#/Vol] 260 10*3/uL Normal 150-400 [facility] Comment on above: Order Comment: Speci men Type: BLOOD SPECIMEN Ordering Facility: [facility] Address: [address] [place] [address] Performed By: #### 5 8410-2 #### [facility] CLIA [id number] [address] [place] [address] [place] RBC (Bld) [#/Vol] 4.06 10*6/uL Normal 3.90-5.20 [facility] Comment on above: Order Comment: Speci men Type: BLOOD SPECIMEN Ordering Facility: [facility] Address: [address] [place] [address] Performed By: #### 5 8410-2 #### [facility] CLIA [id number] [address] [place] [address] [place] WBC (Bld) [#/Vol] 7.33 10*3/uL Normal 3.70-11.00 [facility] Comment on above: Order Comment: Speci men Type: BLOOD SPECIMEN Ordering Facility: [facility] Address: [address] [place] [address] Performed By: #### 5 8410-2 #### [facility] CLIA [id number] [address] [place] [address] [place] MAGNESIUM BLDon 07-13-2022 Magnesium [Mass/Vol] 2.0 mg/dL 1.7 - 2 .3 mg/dL [facility] Magnesium SerPl-mCncon 07-13 Magnesium [Mass/Vol] 2.0 mg/dL Normal 1.7-2.3 [facility] Comment on above: Order Comment: Sarahi men Type: BLOOD SPECIMEN Ordering Facility: [facility] Address: [address] [place] [address] Performed By: #### 5 8410-2 #### [facility] CLIA [id number] [address] [place] [address] [place] Bacteria Ur Culton 2 Bacteria identified Cx Nom (U) CULTURE, URINE: Mixed microbiota, including predominantly: ORGANISM ID: 1 >=100,000 CFU/ml Klebsiella oxytoca ORGANISM ID: 1 (KLEBSIELLA OXYTOCA) ------ ANTIBIOTIC INTERPRETATION NOLA STATUS REFERENCE RANGE ------ Ampicillin R >=32 F Susceptible <=8 , Intermediate >8 , Resistant >16 Ampicillin/Sulbact I 16 F Susceptible <=8 , Intermediate >8 , Resistant >16 Cefazolin S 16 F Susceptible 0-16 , Intermediate <0 or >16 , Resistant >16 Cefepime S <=1 F Susceptible <=2 , Intermediate >2 , Resistant >=16 Ceftriaxone S <=1 F Susceptible <=1 , Intermediate >1 , Resistant >=4 Ciprofloxacin S <=0.25 F Susceptible <0.5 , Intermediate >=.5 , Resistant >=1 Ertapenem S <=0.5 F Susceptible <=0.5 , Intermediate >.5 , Resistant >1 Gentamicin S <=1 F Susceptible <=4 , Intermediate >4 , Resistant >8 Meropenem S <=0.25 F Susceptible <=1 , Intermediate >1 , Resistant >2 Nitrofurantoin S 32 F Susceptible <=32 , Intermediate >32 , Resistant >64 Piperacillin/Tazobac S <=4 F Susceptible <=16 , Intermediate >16 , Resistant >64 Tobramycin S <=1 F Susceptible <=4 , Intermediate >4 , Resistant >8 Trimeth sulfameth S <=20 F Susceptible <=40 , Resistant >40 Abnormal [facility] Comment on above: Performed By: #### 6 30-4 #### [facility] CLIA [id number] [address] [place] [address] [place] Basic metabolic 2000 panelon 07-10-2022 Anion gap [Moles/Vol] 9 mmol/L Normal 9-18 [facility] Comment on above: Order Comment: Valencia kaye Type: BLOOD SPECIMEN Ordering Facility: [facility] Address: [address] [place] [address] Performed By: #### 2 4321-2 #### [facility] CLIA [id number] [address] [place] [address] [place] Calcium [Mass/Vol] 9.6 mg/dL Normal 8.5-10.2 [facility] Comment on above: Order Comment: Speci men Type: BLOOD SPECIMEN Ordering Facility: [facility] Address: [address] [place] [address] Performed By: #### 2 4321-2 #### [facility] CLIA [id number] [address] Chloride [Moles/Vol] 103 mmol/L Normal 97-105 [facility] Comment on above: Order Comment: Speci men Type: BLOOD SPECIMEN Ordering Facility: [facility] Address: [address] [place] [address] Performed By: #### 2 4321-2 #### [facility] CLIA [id number] [address] [place] CO2 [Moles/Vol] 26 mmol/L Normal 22-30 [facility] Comment on above: Order Comment: Speci men Type: BLOOD SPECIMEN Ordering Facility: [facility] Address: [address] [place] [address] Performed By: #### 2 4321-2 #### [facility] CLIA [id number] [address] Creatinine [Mass/Vol] 0.95 mg/dL Normal 0.58-0.96 [facility] Comment on above: Order Comment: Speci men Type: BLOOD SPECIMEN Ordering Facility: [facility] Address: [address] [place] [address] Performed By: #### 2 4321-2 #### [facility] CLIA [id number] [address] ESTIMATED GLOMERULAR FILTRATION RATE 64 mL/min/1.73m??? Normal >=60 [facility] Comment on above: Order Comment: Speci men Type: BLOOD SPECIMEN Ordering Facility: [facility] Address: [address] [place] [address] Result Comment: Param mated Glomerular Filtration Rate (eGFR) is calculated using the 2020 CKD-EPI creatinine equation. This equation utilizes serum creatinine, sex, and age as parameters. The creatinine assay has traceable calibration to isotope dilution-mass spectrometry. Refer to KDIGO guidelines for clinical interpretation. In patients with unstable renal function, e.g. those with acute kidney injury, the eGFR may not accurately reflect actual GFR. Performed By: #### 2 4321-2 #### [facility] CLIA [id number] [address] [place] [address] [place] Glucose [Mass/Vol] 116 mg/dL High 74-99 [facility] Comment on above: Order Comment: Valencia kaye Type: BLOOD SPECIMEN Ordering Facility: [facility] Address: [address] [place] [address] Result Comment: The [place] Diabetes [employer] (ADA) provides guidance for cutoff values for fasting glucose and random glucose. The ADA defines fasting as no caloric intake for at least 8 hours. Fasting plasma glucose results between 100 to 125 mg/dL indicate increased risk for diabetes (prediabetes). Fasting plasma glucose results greater than or equal to 126 mg/dL meet the criteria for diagnosis of diabetes. In the absence of unequivocal hyperglycemia, results should be confirmed by repeat testing. In a patient with classic symptoms of hyperglycemia or hyperglycemic crisis, random plasma glucose results greater than or equal to 200 mg/dL meet the criteria for diagnosis of diabetes. Reference: Standards of Medical Care in Diabetes 2016, [place] [employer]. Diabetes Care. 2016.39(Suppl 1). Performed By: #### 2 4321-2 #### [facility] CLIA [id number] [address] [place] [address] [place] Potassium [Moles/Vol] 5.0 mmol/L Normal 3.7-5.1 [facility] Comment on above: Order Comment: Valencia kaye Type: BLOOD SPECIMEN Ordering Facility: [facility] Address: [address] [place] [address] Performed By: #### 2 4321-2 #### [facility] CLIA [id number] [address] [place] [address] [place] Sodium [Moles/Vol] 138 mmol/L Normal 136-144 [facility] Comment on above: Order Comment: Valencia men Type: BLOOD SPECIMEN Ordering Facility: [facility] Address: [address] [place] [address] Performed By: #### 2 4321-2 #### [facility] CLIA [id number] [address] [place] [address] [place] Urea nitrogen [Mass/Vol] 23 mg/dL High 7-21 [facility] Comment on above: Order Comment: Valencia kaye Type: BLOOD SPECIMEN Ordering Facility: [facility] Address: [address] [place] [address] Performed By: #### 2 4321-2 #### [facility] CLIA [id number] [address] STATES OF [facility] CBC panel Auto (Bld)on 07-10 Erythrocyte distribution width (RBC) [Ratio] 12.4 % 11.5 - 15.0 % [facility] Hematocrit (Bld) [Volume fraction] 39.4 % 36.0 - 46.0 % [facility] Hemoglobin (Bld) [Mass/Vol] 12.8 g/dL 11.5 - 15.5 g/dL [facility] MCH (RBC) [Entitic mass] 30.5 pg 26.0 - 34.0 pg [facility] MCHC (RBC) [Mass/Vol] 32.5 g/dL 30.5 - 36.0 g/dL [facility] MCV (RBC) [Entitic vol] 93.8 fL 80.0 - 100.0 fL [facility] Nucleated RBC (Bld) [#/Vol] <0.01 k/uL [facility] Platelet mean volume (Bld) [Entitic vol] 10.7 fL 9.0 - 12.7 fL [facility] Platelets (Bld) [#/Vol] 250 10*3/uL 150 - 400 k/uL [facility] RBC (Bld) [#/Vol] 4.20 10*6/uL 3.90 - 5.2 0 m/uL [facility] WBC (Bld) [#/Vol] 8.12 10*3/uL 3.70 - 11. 00 k/uL [facility] Erythrocyte distribution width (RBC) [Ratio] 12.4 % Normal 11.5-15.0 [facility] Comment on above: Order Comment: Valencia kaye Type: BLOOD SPECIMEN [facility] Address: [address] [place] [address] Performed By: #### 5 8410-2 #### [facility] CLIA [id number] [address] [place] [address] [place] Hematocrit (Bld) [Volume fraction] 39.4 % Normal 36.0-46.0 [facility] Comment on above: Order Comment: Speci men Type: BLOOD SPECIMEN Ordering Facility: [facility] Address: [address] [place] [address] Performed By: #### 5 8410-2 #### [facility] CLIA [id number] [address] [place] Hemoglobin (Bld) [Mass/Vol] 12.8 g/dL Normal 11.5-15.5 [facility] Comment on above: Order Comment: Speci men Type: BLOOD SPECIMEN Ordering Facility: [facility] Address: [address] [place] [address] Performed By: #### 5 8410-2 #### [facility] CLIA [id number] [address] [place] MCH (RBC) [Entitic mass] 30.5 pg Normal 26.0-34.0 [facility] Comment on above: Order Comment: Speci men Type: BLOOD SPECIMEN Ordering Facility: [facility] Address: [address] [place] [address] Performed By: #### 5 8410-2 #### [facility] CLIA [id number] [address] [place] MCHC (RBC) [Mass/Vol] 32.5 g/dL Normal 30.5-36.0 [facility] Comment on above: Order Comment: Speci men Type: BLOOD SPECIMEN Ordering Facility: [facility] Address: [address] [place] [address] Performed By: #### 5 8410-2 #### [facility] CLIA [id number] [address] [place] MCV (RBC) [Entitic vol] 93.8 fL Normal 80.0-100.0 [facility] Comment on above: Order Comment: Speci men Type: BLOOD SPECIMEN Ordering Facility: [facility] Address: [address] [place] [address] Performed By: #### 5 8410-2 #### [facility] CLIA [id number] [address] [place] [address] [place] Nucleated RBC (Bld) [#/Vol] 10*3/uL Normal <0.01 [facility] Comment on above: Order Comment: Speci men Type: BLOOD SPECIMEN Ordering Facility: [facility] Address: [address] [place] [address] Performed By: #### 5 8410-2 #### [facility] CLIA [id number] [address] [place] [address] [place] Platelet mean volume (Bld) [Entitic vol] 10.7 fL Normal 9.0-12.7 [facility] Comment on above: Order Comment: Speci men Type: BLOOD SPECIMEN Ordering Facility: [facility] Address: [address] [place] [address] Performed By: #### 5 8410-2 #### [facility] CLIA [id number] [address] [place] [address] [place] Platelets (Bld) [#/Vol] 250 10*3/uL Normal 150-400 [facility] Comment on above: Order Comment: Speci men Type: BLOOD SPECIMEN Ordering Facility: [facility] Address: [address] [place] [address] Performed By: #### 5 8410-2 #### [facility] CLIA [id number] [address] [place] [address] [place] RBC (Bld) [#/Vol] 4.20 10*6/uL Normal 3.90-5.20 [facility] Comment on above: Order Comment: Speci men Type: BLOOD SPECIMEN Ordering Facility: [facility] Address: [address] [place] [address] Performed By: #### 5 8410-2 #### [facility] CLIA [id number] [address] [place] [address] [place] WBC (Bld) [#/Vol] 8.12 10*3/uL Normal 3.70-11.00 [facility] Comment on above: Order Comment: Speci men Type: BLOOD SPECIMEN Ordering Facility: [facility] Address: [address] [place] [address] Performed By: #### 5 8410-2 #### [facility] CLIA [id number] [address] [place] MAGNESIUM BLDon 07-10-2022 Magnesium [Mass/Vol] 2.0 mg/dL 1.7 - 2 .3 mg/dL [facility] Magnesium SerPl-mCncon 07-10 Magnesium [Mass/Vol] 2.0 mg/dL Normal 1.7-2.3 [facility] Comment on above: Order Comment: Speci men Type: BLOOD SPECIMEN Ordering Facility: [facility] Address: [address] [place] [address] Performed By: #### 1 9123-9 #### [facility] CLIA [id number] [address] BASIC METABOLIC PANELon 06-20 ANION GAP Canceled Normal [facility] Comment on above: Order Comment: TEST BASIC METABOLIC PANEL WAS CANCELLED, 07/08/2022 10:15 PATIENT DISCHARGED. Performed By: #### B MP ####[facility] [id number] [place] [address] BICARBONATE Canceled Normal [facility] Comment on above: Order Comment: TEST BASIC METABOLIC PANEL WAS CANCELLED, 07/08/2022 10:15 PATIENT DISCHARGED. Performed By: #### B MP ####[facility] [id number] [place] [address] CALCIUM Canceled Normal [facility] Comment on above: Order Comment: TEST BASIC METABOLIC PANEL WAS CANCELLED, 07/08/2022 10:15 PATIENT DISCHARGED. Performed By: #### B MP ####[facility] [id number] [place] [address] CHLORIDE Canceled Normal [facility] Comment on above: Order Comment: TEST BASIC METABOLIC PANEL WAS CANCELLED, 07/08/2022 10:15 PATIENT DISCHARGED. Performed By: #### B MP ####[facility] [id number] [place] [address] CREATININE Canceled Normal [facility] Comment on above: Order Comment: TEST BASIC METABOLIC PANEL WAS CANCELLED, 07/08/2022 10:15 PATIENT DISCHARGED. Performed By: #### B MP ####[facility] [id number] [place] [address] eGFR FEMALE Canceled Normal [facility] Comment on above: Order Comment: TEST BASIC METABOLIC PANEL WAS CANCELLED, 07/08/2022 10:15 PATIENT DISCHARGED. Result Comment: CALC ULATIONS OF ESTIMATED GFR ARE PERFORMED USING THE 2020 CKD-EPI STUDY REFIT EQUATION WITHOUT THE RACE VARIABLE FOR THE IDMS-TRACEABLE CREATININE METHODS. https://jasn.asnjournals.org/content/early/ASN.467421 4920 Performed By: #### B MP ####[facility] [id number] [place] [address] eGFR MALE Canceled Normal [facility] Comment on above: Order Comment: TEST BASIC METABOLIC PANEL WAS CANCELLED, 07/08/2022 10:15 PATIENT DISCHARGED. Result Comment: CALC ULATIONS OF ESTIMATED GFR ARE PERFORMED USING THE 2020 CKD-EPI STUDY REFIT EQUATION WITHOUT THE RACE VARIABLE FOR THE IDMS-TRACEABLE CREATININE METHODS. https://jasn.asnjournals.org/content/early/ASN.926575 5328 Performed By: #### B MP ####[facility] [id number] [place] [address] GLUCOSE Canceled Normal [facility] Comment on above: Order Comment: TEST BASIC METABOLIC PANEL WAS CANCELLED, 07/08/2022 10:15 PATIENT DISCHARGED. Performed By: #### B MP ####[facility] [id number] [place] [address] POTASSIUM Canceled Normal [facility] Comment on above: Order Comment: TEST BASIC METABOLIC PANEL WAS CANCELLED, 07/08/2022 10:15 PATIENT DISCHARGED. Performed By: #### B MP ####[facility] [id number] [place] [address] SODIUM Canceled Normal [facility] Comment on above: Order Comment: TEST BASIC METABOLIC PANEL WAS CANCELLED, 07/08/2022 10:15 PATIENT DISCHARGED. Performed By: #### B MP ####[facility] [id number] [place] [address] UREA NITROGEN Canceled Normal [facility] Comment on above: Order Comment: TEST BASIC METABOLIC PANEL WAS CANCELLED, 07/08/2022 10:15 PATIENT DISCHARGED. Performed By: #### B MP ####[facility] [id number] [place] [address] CBCon 07-08-2022 HCT Canceled Normal [facility] Comment on above: Order Comment: TEST CBC WAS CANCELLED, 07/08/2022 10:15 PATIENT DISCHARGED. Performed By: #### G YUAN #### [facility] CNTR [address] [facility] [place] [address] HGB Canceled Normal [facility] Comment on above: Order Comment: TEST CBC WAS CANCELLED, 07/08/2022 10:15 PATIENT DISCHARGED. Performed By: #### G YUAN #### [facility] [address] [facility] [place] [address] MCHC Canceled Normal [facility] Comment on above: Order Comment: TEST CBC WAS CANCELLED, 07/08/2022 10:15 PATIENT DISCHARGED. Performed By: #### G YUAN #### [facility] CNTR [address] [facility] [place] [address] MCV Canceled Normal [facility] Comment on above: Order Comment: TEST CBC WAS CANCELLED, 07/08/2022 10:15 PATIENT DISCHARGED. Performed By: #### G YUAN #### [facility] [address] [facility] [place] [address] NUCLEATED RBC Canceled Normal [facility] Comment on above: Order Comment: TEST CBC WAS CANCELLED, 07/08/2022 10:15 PATIENT DISCHARGED. Performed By: #### G YUAN #### [facility] [address] [facility] [place] [address] PLT Canceled Normal [facility] Comment on above: Order Comment: TEST CBC WAS CANCELLED, 07/08/2022 10:15 PATIENT DISCHARGED. Performed By: #### G YUAN #### [facility] CNTR [address] [place] [phone] RBC Canceled Normal [facility] Comment on above: Order Comment: TEST CBC WAS CANCELLED, 07/08/2022 10:15 PATIENT DISCHARGED. Performed By: #### G YUAN #### [facility] CNTR [address] [place] [phone] RDW-CV Canceled Normal [facility] Comment on above: Order Comment: TEST CBC WAS CANCELLED, 07/08/2022 10:15 PATIENT DISCHARGED. Performed By: #### G YUAN #### [facility] CNTR [address] [place] [phone] WBC Canceled Normal [facility] Comment on above: Order Comment: TEST CBC WAS CANCELLED, 07/08/2022 10:15 PATIENT DISCHARGED. Performed By: #### G YUAN #### [facility] CNTR [address] [place] [phone] CBC W Auto Differential pane l (Bld)on 07-08-2022 Basophils (Bld) [#/Vol] 0.06 10*3/uL <0.11 k/uL [facility] Basophils/100 WBC (Bld) 0.7 % [facility] Differential cell count method Nom (Bld) Auto [facility] Eosinophils (Bld) [#/Vol] 0.45 10*3/uL <0.46 k/uL [facility] Eosinophils/100 WBC (Bld) 5.4 % [facility] Erythrocyte distribution width (RBC) [Ratio] 12.7 % 11.5 - 15.0 % [facility] Hematocrit (Bld) [Volume fraction] 37.6 % 36.0 - 46.0 % [facility] Hemoglobin (Bld) [Mass/Vol] 12.1 g/dL 11.5 - 15.5 g/dL [facility] Immature granulocytes (Bld) [#/Vol] <0.10 k/uL [facility] Immature granulocytes/100 WBC (Bld) 0.2 % [facility] Lymphocytes (Bld) [#/Vol] 1.93 10*3/uL 1.00 - 4.00 k/uL [facility] Lymphocytes/100 WBC (Bld) 22.9 % [facility] MCH (RBC) [Entitic mass] 30.0 pg 26.0 - 34.0 pg [facility] MCHC (RBC) [Mass/Vol] 32.2 g/dL 30.5 - 36.0 g/dL [facility] MCV (RBC) [Entitic vol] 93.1 fL 80.0 - 100.0 fL [facility] Monocytes (Bld) [#/Vol] 0.94 10*3/uL High <0.87 k/uL [facility] Monocytes/100 WBC (Bld) 11.2 % [facility] Neutrophils (Bld) [#/Vol] 5.01 10*3/uL 1.45 - 7.50 k/uL [facility] Neutrophils/100 WBC (Bld) 59.6 % [facility] Nucleated RBC (Bld) [#/Vol] <0.01 k/uL [facility] Nucleated RBC/100 WBC (Bld) [Ratio] 0.0 /100 WBC [facility] Platelet mean volume (Bld) [Entitic vol] 10.7 fL 9.0 - 12.7 fL [facility] Platelets (Bld) [#/Vol] 262 10*3/uL 150 - 400 k/uL [facility] RBC (Bld) [#/Vol] 4.04 10*6/uL 3.90 - 5.2 0 m/uL [facility] WBC (Bld) [#/Vol] 8.41 10*3/uL 3.70 - 11. 00 k/uL [facility] Basophils (Bld) [#/Vol] 0.06 10*3/uL Normal <0.11 [facility] Comment on above: Order Comment: Speci men Type: BLOOD SPECIMEN Ordering Facility: [facility] Address: [address] [place] [address] Performed By: #### 5 7021-8 #### [facility] CLIA [id number] [address] [place] [address] Basophils/100 WBC (Bld) 0.7 % Normal [facility] Comment on above: Order Comment: Speci men Type: BLOOD SPECIMEN Ordering Facility: [facility] Address: [address] [place] [address] Performed By: #### 5 7021-8 #### [facility] CLIA [id number] [address] [place] [address] [place] Differential cell count method Nom (Bld) Auto Normal [facility] Comment on above: Order Comment: Speci men Type: BLOOD SPECIMEN Ordering Facility: [facility] Address: [address] [place] [address] Performed By: #### 5 7021-8 #### [facility] CLIA [id number] [address] [place] [address] [place] Eosinophils (Bld) [#/Vol] 0.45 10*3/uL Normal <0.46 [facility] Comment on above: Order Comment: Speci men Type: BLOOD SPECIMEN Ordering Facility: [facility] Address: [address] [place] [address] Performed By: #### 5 7021-8 #### [facility] CLIA [id number] [address] [place] Eosinophils/100 WBC (Bld) 5.4 % Normal [facility] Comment on above: Order Comment: Speci men Type: BLOOD SPECIMEN Ordering Facility: [facility] Address: [address] [place] [address] Performed By: #### 5 7021-8 #### [facility] CLIA [id number] [address] [place] Erythrocyte distribution width (RBC) [Ratio] 12.7 % Normal 11.5-15.0 [facility] Comment on above: Order Comment: Speci men Type: BLOOD SPECIMEN Ordering Facility: [facility] Address: [address] [place] [address] Performed By: #### 5 7021-8 #### [facility] CLIA [id number] [address] [place] Hematocrit (Bld) [Volume fraction] 37.6 % Normal 36.0-46.0 [facility] Comment on above: Order Comment: Speci men Type: BLOOD SPECIMEN Ordering Facility: [facility] Address: [address] [place] [address] Performed By: #### 5 7021-8 #### [facility] CLIA [id number] [address] [place] [address] [place] Hemoglobin (Bld) [Mass/Vol] 12.1 g/dL Normal 11.5-15.5 [facility] Comment on above: Order Comment: Speci men Type: BLOOD SPECIMEN Ordering Facility: [facility] Address: [address] [place] [address] Performed By: #### 5 7021-8 #### [facility] CLIA [id number] [address] [place] [address] [place] Immature granulocytes (Bld) [#/Vol] 10*3/uL Normal <0.10 [facility] Comment on above: Order Comment: Speci men Type: BLOOD SPECIMEN Ordering Facility: [facility] Address: [address] [place] [address] Performed By: #### 5 7021-8 #### [facility] CLIA [id number] [address] [place] Immature granulocytes/100 WBC (Bld) 0.2 % Normal [facility] Comment on above: Order Comment: Speci men Type: BLOOD SPECIMEN Ordering Facility: [facility] Address: [address] [place] [address] Performed By: #### 5 7021-8 #### [facility] CLIA [id number] [address] [place] [address] [place] Lymphocytes (Bld) [#/Vol] 1.93 10*3/uL Normal 1.00-4.00 [facility] Comment on above: Order Comment: Speci men Type: BLOOD SPECIMEN Ordering Facility: [facility] Address: [address] [place] [address] Performed By: #### 5 7021-8 #### [facility] CLIA [id number] [address] [place] Lymphocytes/100 WBC (Bld) 22.9 % Normal [facility] Comment on above: Order Comment: Speci men Type: BLOOD SPECIMEN Ordering Facility: [facility] Address: [address] [place] [address] Performed By: #### 5 7021-8 #### [facility] CLIA [id number] [address] MCH (RBC) [Entitic mass] 30.0 pg Normal 26.0-34.0 [facility] Comment on above: Order Comment: Speci men Type: BLOOD SPECIMEN Ordering Facility: [facility] Address: [address] [place] [address] Performed By: #### 5 7021-8 #### [facility] CLIA [id number] [address] [place] [address] [place] MCHC (RBC) [Mass/Vol] 32.2 g/dL Normal 30.5-36.0 [facility] Comment on above: Order Comment: Speci men Type: BLOOD SPECIMEN Ordering Facility: [facility] Address: [address] [place] [address] Performed By: #### 5 7021-8 #### [facility] CLIA [id number] [address] [place] MCV (RBC) [Entitic vol] 93.1 fL Normal 80.0-100.0 [facility] Comment on above: Order Comment: Speci men Type: BLOOD SPECIMEN Ordering Facility: [facility] Address: [address] [place] [address] Performed By: #### 5 7021-8 #### [facility] CLIA [id number] [address] [place] [address] [place] Monocytes (Bld) [#/Vol] 0.94 10*3/uL High <0.87 [facility] Comment on above: Order Comment: Speci men Type: BLOOD SPECIMEN Ordering Facility: [facility] Address: [address] [place] [address] Performed By: #### 5 7021-8 #### [facility] CLIA [id number] [address] [place] Monocytes/100 WBC (Bld) 11.2 % Normal [facility] Comment on above: Order Comment: Speci men Type: BLOOD SPECIMEN Ordering Facility: [facility] Address: [address] [place] [address] Performed By: #### 5 7021-8 #### [facility] CLIA [id number] [address] [place] [address] [place] Neutrophils (Bld) [#/Vol] 5.01 10*3/uL Normal 1.45-7.50 [facility] Comment on above: Order Comment: Speci men Type: BLOOD SPECIMEN Ordering Facility: [facility] Address: [address] [place] [address] Performed By: #### 5 7021-8 #### [facility] CLIA [id number] [address] [place] [address] [place] Neutrophils/100 WBC (Bld) 59.6 % Normal [facility] Comment on above: Order Comment: Speci men Type: BLOOD SPECIMEN Ordering Facility: [facility] Address: [address] [place] [address] Performed By: #### 5 7021-8 #### [facility] CLIA [id number] [address] [place] [address] [place] Nucleated RBC (Bld) [#/Vol] 10*3/uL Normal <0.01 [facility] Comment on above: Order Comment: Speci men Type: BLOOD SPECIMEN Ordering Facility: [facility] Address: [address] [place] [address] Performed By: #### 5 7021-8 #### [facility] CLIA [id number] [address] [place] [address] [place] Nucleated RBC/100 WBC (Bld) [Ratio] 0.0 /100 WBC Normal [facility] Comment on above: Order Comment: Speci men Type: BLOOD SPECIMEN Ordering Facility: [facility] Address: [address] [place] [address] Performed By: #### 5 7021-8 #### [facility] CLIA [id number] [address] [place] [address] [place] Platelet mean volume (Bld) [Entitic vol] 10.7 fL Normal 9.0-12.7 [facility] Comment on above: Order Comment: Speci men Type: BLOOD SPECIMEN Ordering Facility: [facility] Address: [address] [place] [address] Performed By: #### 5 7021-8 #### [facility] CLIA [id number] [address] [place] [address] [place] Platelets (Bld) [#/Vol] 262 10*3/uL Normal 150-400 [facility] Comment on above: Order Comment: Speci men Type: BLOOD SPECIMEN Ordering Facility: [facility] Address: [address] [place] [address] Performed By: #### 5 7021-8 #### [facility] CLIA [id number] [address] [place] [address] [place] RBC (Bld) [#/Vol] 4.04 10*6/uL Normal 3.90-5.20 [facility] Comment on above: Order Comment: Speci men Type: BLOOD SPECIMEN Ordering Facility: [facility] Address: [address] [place] [address] Performed By: #### 5 7021-8 #### [facility] CLIA [id number] [address] [place] [address] [place] WBC (Bld) [#/Vol] 8.41 10*3/uL Normal 3.70-11.00 [facility] Comment on above: Order Comment: Speci men Type: BLOOD SPECIMEN Ordering Facility: [facility] Address: [address] [place] [address] Performed By: #### 5 7021-8 #### [facility] CLIA [id number] [address] [place] [address] [place] Comprehensive metabolic 2000 panelon 07-08-2022 Albumin [Mass/Vol] 3.8 g/dL Low 3.9 - 4.9 g/dL [facility] ALP [Catalytic activity/Vol] 108 U/L 34 - 123 U/L [facility] ALT [Catalytic activity/Vol] 24 U/L 7 - 38 U/L [facility] Anion gap [Moles/Vol] 10 mmol/L 9 - 18 mmol/L [facility] AST [Catalytic activity/Vol] 25 U/L 13 - 35 U/L [facility] Bilirubin [Mass/Vol] 0.6 mg/dL 0.2 - 1 .3 mg/dL [facility] Calcium [Mass/Vol] 9.6 mg/dL 8.5 - 10. 2 mg/dL [facility] Chloride [Moles/Vol] 102 mmol/L 97 - 10 5 mmol/L [facility] CO2 [Moles/Vol] 26 mmol/L 22 - 30 mmol/L [facility] Creatinine [Mass/Vol] 1.22 mg/dL High 0.58 - 0.96 mg/dL [facility] Estimated Glomerular Filtration Rate 47 mL/min/1.73m Low >=60 mL/min/1.73m [facility] Glucose [Mass/Vol] 134 mg/dL High 74 - 99 mg/dL [facility] Potassium [Moles/Vol] 4.5 mmol/L 3.7 - 5.1 mmol/L [facility] Protein [Mass/Vol] 6.9 g/dL 6.3 - 8.0 g/dL [facility] Sodium [Moles/Vol] 138 mmol/L 136 - 144 mmol/L [facility] Urea nitrogen [Mass/Vol] 28 mg/dL High 7 - 21 mg/dL [facility] Albumin [Mass/Vol] 3.8 g/dL Low 3.9-4.9 [facility] Comment on above: Order Comment: Speci men Type: BLOOD SPECIMEN Ordering Facility: [facility] Address: [address] [place] [address] Performed By: #### 5 8410-2 #### [facility] CLIA [id number] [address] ALP [Catalytic activity/Vol] 108 U/L Normal 34-123 [facility] Comment on above: Order Comment: Speci men Type: BLOOD SPECIMEN Ordering Facility: [facility] Address: [address] [place] [address] Performed By: #### 5 8410-2 #### [facility] CLIA [id number] [address] [place] [address] [place] ALT [Catalytic activity/Vol] 24 U/L Normal 7-38 [facility] Comment on above: Order Comment: Speci men Type: BLOOD SPECIMEN Ordering Facility: [facility] Address: [address] [place] [address] Performed By: #### 5 8410-2 #### [facility] CLIA [id number] [address] [place] [address] [place] Anion gap [Moles/Vol] 10 mmol/L Normal 9-18 [facility] Comment on above: Order Comment: Speci men Type: BLOOD SPECIMEN Ordering Facility: [facility] Address: [address] [place] [address] Performed By: #### 5 8410-2 #### [facility] CLIA [id number] [address] [place] [address] [place] AST [Catalytic activity/Vol] 25 U/L Normal 13-35 [facility] Comment on above: Order Comment: Speci men Type: BLOOD SPECIMEN Ordering Facility: [facility] Address: [address] [place] [address] Performed By: #### 5 8410-2 #### [facility] CLIA [id number] [address] [place] [address] [place] Bilirubin [Mass/Vol] 0.6 mg/dL Normal 0.2-1.3 [facility] Comment on above: Order Comment: Speci men Type: BLOOD SPECIMEN Ordering Facility: [facility] Address: [address] [place] [address] Performed By: #### 5 8410-2 #### [facility] CLIA [id number] [address] [place] [address] [place] Calcium [Mass/Vol] 9.6 mg/dL Normal 8.5-10.2 [facility] Comment on above: Order Comment: Speci men Type: BLOOD SPECIMEN Ordering Facility: [facility] Address: [address] [place] [address] Performed By: #### 5 8410-2 #### [facility] CLIA [id number] [address] [place] [address] [place] Chloride [Moles/Vol] 102 mmol/L Normal 97-105 [facility] Comment on above: Order Comment: Speci men Type: BLOOD SPECIMEN Ordering Facility: [facility] Address: [address] [place] [address] Performed By: #### 5 8410-2 #### [facility] CLIA [id number] [address] [place] [address] [place] CO2 [Moles/Vol] 26 mmol/L Normal 22-30 [facility] Comment on above: Order Comment: Speci men Type: BLOOD SPECIMEN Ordering Facility: [facility] Address: [address] [place] [address] Performed By: #### 5 8410-2 #### [facility] CLIA [id number] [address] [facility] Creatinine [Mass/Vol] 1.22 mg/dL High 0.58-0.96 [facility] Comment on above: Order Comment: Speci men Type: BLOOD SPECIMEN Ordering Facility: [facility] Address: [address] [place] [address] Performed By: #### 5 8410-2 #### [facility] CLIA [id number] [address] ESTIMATED GLOMERULAR FILTRATION RATE 47 mL/min/1.73m??? Low >=60 [facility] Comment on above: Order Comment: Speci men Type: BLOOD SPECIMEN Ordering Facility: [facility] Address: [address] [place] [address] Result Comment: Param mated Glomerular Filtration Rate (eGFR) is calculated using the 2020 CKD-EPI creatinine equation. This equation utilizes serum creatinine, sex, and age as parameters. The creatinine assay has traceable calibration to isotope dilution-mass spectrometry. Refer to KDIGO guidelines for clinical interpretation. In patients with unstable renal function, e.g. those with acute kidney injury, the eGFR may not accurately reflect actual GFR. Performed By: #### 5 8410-2 #### [facility] CLIA [id number] [address] [place] [address] [place] Glucose [Mass/Vol] 134 mg/dL High 74-99 [facility] Comment on above: Order Comment: Valencia kaye Type: BLOOD SPECIMEN Ordering Facility: [facility] Address: [address] [place] [address] Result Comment: The [place] Diabetes [employer] (ADA) provides guidance for cutoff values for fasting glucose and random glucose. The ADA defines fasting as no caloric intake for at least 8 hours. Fasting plasma glucose results between 100 to 125 mg/dL indicate increased risk for diabetes (prediabetes). Fasting plasma glucose results greater than or equal to 126 mg/dL meet the criteria for diagnosis of diabetes. In the absence of unequivocal hyperglycemia, results should be confirmed by repeat testing. In a patient with classic symptoms of hyperglycemia or hyperglycemic crisis, random plasma glucose results greater than or equal to 200 mg/dL meet the criteria for diagnosis of diabetes. Reference: Standards of Medical Care in Diabetes 2016, [place] [employer]. Diabetes Care. 2016.39(Suppl 1). Performed By: #### 5 8410-2 #### [facility] CLIA [id number] [address] [place] [address] [place] Potassium [Moles/Vol] 4.5 mmol/L Normal 3.7-5.1 [facility] Comment on above: Order Comment: Valencia kaye Type: BLOOD SPECIMEN Ordering Facility: [facility] Address: [address] [place] [address] Performed By: #### 5 8410-2 #### [facility] CLIA [id number] [address] [place] [address] [place] Protein [Mass/Vol] 6.9 g/dL Normal 6.3-8.0 [facility] Comment on above: Order Comment: Valencia kaye Type: BLOOD SPECIMEN Ordering Facility: [facility] Address: [address] [place] [address] Performed By: #### 5 8410-2 #### [facility] CLIA [id number] [address] [place] [address] [place] Sodium [Moles/Vol] 138 mmol/L Normal 136-144 [facility] Comment on above: Order Comment: Sarahi men Type: BLOOD SPECIMEN Ordering Facility: [facility] Address: [address] [place] [address] Performed By: #### 5 8410-2 #### [facility] CLIA [id number] [address] [place] [address] [place] Urea nitrogen [Mass/Vol] 28 mg/dL High 7-21 [facility] Comment on above: Order Comment: Speci men Type: BLOOD SPECIMEN Ordering Facility: [facility] Address: [address] [place] [address] Performed By: #### 5 8410-2 #### [facility] CLIA [id number] [address] [place] [id number] [place] BASIC METABOLIC PANELon 11-1 Anion gap [Moles/Vol] 13 mmol/L Normal 10 - 20 [facility] Comment on above: Performed By: #### G YUAN #### [facility] [address]TR [address] [place] [address] Calcium [Mass/Vol] 9.3 mg/dL Normal 8.6 - 10.3 [facility] Comment on above: Performed By: #### G YUAN #### [facility] [address] [place] [address] Chloride [Moles/Vol] 101 mmol/L Normal 98 - 107 [facility] Comment on above: Performed By: #### G YUAN #### [facility] CNTR [address] [place] [address] Creatinine [Mass/Vol] 1.23 mg/dL High 0.50 - 1.05 [facility] Comment on above: Performed By: #### G YUAN #### [facility] [address]TR [address] [place] [address] GFR/1.73 sq M.predicted among non-blacks MDRD (S/P/Bld) [Vol rate/Area] 46 mL/min/{1.73_m2} Abnormal >90 [facility] Comment on above: Result Comment: CALC ULATIONS OF ESTIMATED GFR ARE PERFORMED USING THE 2020 CKD-EPI STUDY REFIT EQUATION WITHOUT THE RACE VARIABLE FOR THE IDMS-TRACEABLE CREATININE METHODS. https://jasn.asnjournals.org/content/early//ASN.823604 7346 Performed By: #### G YUAN #### [facility] [address] [address] [place] [address] Glucose [Mass/Vol] 105 mg/dL High 74 - 99 [facility] Comment on above: Performed By: #### G YUAN #### [facility] [address] [place] [address] HCO3 (Bld) [Moles/Vol] 26 mmol/L Normal 21 - 32 [facility] Comment on above: Performed By: #### G YUAN #### [facility] [address] [place] [address] Potassium [Moles/Vol] 4.3 mmol/L Normal 3.5 - 5.3 [facility] Comment on above: Performed By: #### G YUAN #### [facility] [address] [place] [address] Sodium [Moles/Vol] 136 mmol/L Normal 136 - 145 [facility] Comment on above: Performed By: #### G YUAN #### [facility] [address] [place] [address] Urea nitrogen [Mass/Vol] 30 mg/dL High 6 - 23 [facility] Comment on above: Performed By: #### G YUAN #### [facility] [address] [place] [address] CBCon 07-07-2022 Erythrocyte distribution width (RBC) [Ratio] 12.7 % Normal 11.5 - 14.5 [facility] Comment on above: Performed By: #### C BC ####[facility] [id number] [place] [address] Hematocrit (Bld) [Volume fraction] 38.6 % Normal 36.0 - 46.0 [facility] Comment on above: Performed By: #### C BC ####[facility] [id number] [place] [address] Hemoglobin (Bld) [Mass/Vol] 12.2 g/dL Normal 12.0 - 16.0 [facility] Comment on above: Performed By: #### C BC ####[facility] [id number] [place] [address] MCHC (RBC) [Mass/Vol] 31.6 g/dL Low 32.0 - 36.0 [facility] Comment on above: Performed By: #### C BC ####[facility] [id number] [place] [address] MCV (RBC) [Entitic vol] 93 fL Normal 80 - 100 [facility] Comment on above: Performed By: #### C BC ####[facility] [id number] [place] [address] Platelets (Bld) [#/Vol] 261 10*3/uL Normal 150 - 450 [facility] Comment on above: Performed By: #### C BC ####[facility] [id number] [place] [address] RBC 4.16 x10E12/L Normal 4.00 - 5.20 [facility] Comment on above: Performed By: #### C BC ####[facility] [id number] [place] [address] WBC (Bld) [#/Vol] 9.1 10*3/uL Normal 4.4 - 11.3 [facility] Comment on above: Performed By: #### C BC ####[facility] [id number] [place] [address] Daily Progress Note-General Internal Medicineon 07-07-2022 Daily Progress Note-General Internal Medicine Service: General Internal Medicine Subjective Data: YANELI BASURTO is a 71 year old Female who is Hospital Day # 4. Patient interviewed and examined. 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 Remains flaccid however left leg power is improved significantly. And his speech is also improving. Her blood pressures are stable and she is hemodynamically stable to be discharged to acute rehab now. Patient was seen by neurology as well as neurosurgery during the hospital stay and no surgical intervention for intracerebral hemorrhage was recommended. Lipid panel did reveal a mildly elevated LDL of 103 for which she has been put on atorvastatin, her echocardiogram revealed low wall motion abnormality and normal left ventricular systolic function. Hemoglobin A1c was 6.4 and blood sugars are stable. Objective Data: Objective Information: T PRBPMAPSpO2 [id number]/6980 94% Date/Time07/07 12: 12: 12: 12: 0: 12:23 Range(35.9C - 36.8C ) (57 - 79 ) (16 - 18 ) (108 - 152 )/ (47 - 88 ) (80 - 86 ) (94% - 97% ) Pain reported at 07/07 2:11: 0 = None ---- Intake and Output ----- Mn/Dy/Year TimeIntakeOutputNet Jul 07, 2022 6:00 [id number] Jul 06, 2022 10:00 [id number] Jul 06, 2022 2:00 [id number] The Intake and Output Totals for the last 24 hours are: IntakeOutputNet [id number] Physical Exam by System: Constitutional: Awake and alert, comfortable, cooperative, afebrile Eyes: PERRL, EOMI, clear sclera ENMT: mucous membranes moist, no apparent injury, no lesions seen Head/Neck: Neck supple, no apparent injury, thyroid without mass or tenderness, No JVD, trachea midline, no bruits Respiratory/Thorax: Patent airways, CTAB, normal breath sounds with good chest expansion, thorax symmetric Cardiovascular: Rate and rhythm is regular, normal S1-S2, no gallop or pericardial rub, 1/6 systolic ejection murmur left sternal border, no CHF. Gastrointestinal: Nondistended, soft, non-tender, no rebound tenderness or guarding, no masses palpable, no organomegaly, +BS, no bruits Genitourinary: Not examined Musculoskeletal: Remote bilateral total knee replacement. Extremities: normal extremities, no cyanosis edema, contusions or wounds, no clubbing Neurological: Awake and alert, dysarthria, left facial droop, flaccid left upper arm. Power decreased in left lower extremity 3/5. No sensory impairment, tendon reflexes are brisk in the lower extremities and extensor plantar on the left. Gait was not tested. Breast: Not examined Lymphatic: No significant lymphadenopathy Psychological: Appropriate mood and behavior Skin: Warm and dry, no lesions, no rashes Medication: Medications: Continuous Medications No continuous medications are active Scheduled Medications 1. Atorvastatin: 40 mg Oral Daily 2. Carvedilol: 25 mg Oral 2 Times a Day 3. Docusate: 100 mg Oral 2 Times a Day 4. Lisinopril: 40 mg Oral Daily 5. Melatonin: 3 mg Oral Daily 1800 6. Venlafaxine Extended Release: 75 mg Oral Daily PRN Medications 1. Albuterol 2.5 mg - Ipratropium 0.5 mg/ 3 mL Neb Soln: 3 mL Inhalation Every 6 Hours 2. hydrOXYzine Hydrochloride (ATARAX): 25 mg Oral Every 6 Hours Recent Lab Results: Results: I have reviewed these laboratory results: Basic Metabolic Panel Trending View [id number] 05:30:00 06-Jul-2022 06:19:00 Glucose, [id number] H 111 H NA136 136 K4.3 4.4 CL101 101 Bicarbonate, Serum26 27 Anion Gap, Serum13 12 BUN30 H 19 CREAT1.23 H 1.04 GFR Qokdad32 A 57 A Calcium, Serum9.3 9.6 Complete Blood Count Trending View [id number] 05:30:00 -Jun-2022 06:19:00 White Blood Cell Count9.1 9.4 Red Blood Cell Count4.16 4.52 HGB12.2 13.6 HCT38.6 41.8 MCV93 92 MCHC31.6 L 32.5 EGV740 289 RDW-CV12.7 12.8 Radiology Results: Results: Conclusion: CONCLUSIONS: 1. Left ventricular systolic function is normal with a 70-75% estimated ejection fraction. 2. RVSP within normal limits. QUANTITATIVE DATA SUMMARY: 2D MEASUREMENTS: Normal Ranges: LAs: 2.80 cm (2.7-4.0cm) IVSd: 1.10 cm (0.6-1.1cm) LVPWd: 1.10 cm (0.6-1.1cm) LVIDd: 3.70 cm (3.9-5.9cm) LVIDs: 2.30 cm LV Mass Index: 69.4 g/m2 LV % FS 37.8 % LA VOLUME: Normal Ranges: LA Vol A4C: 37.3 ml (22+/-6mL/m2) LA Vol A2C: 55.1 ml LA Vol BP: 47.4 ml LA Vol Index A4C: 20.0ml/m2 LA Vol Index A2C: 29.6 ml/m2 LA Vol Index BP: 25.4 ml/m2 LA Area A4C: 14.4 cm2 LA Area A2C: 18.3 cm2 LA [place] A4C: 4.7 cm LA [place] A2C: 5.2 cm LA Volume Index: 23.3 ml/m2 RA VOLUME BY A/L METH (more content not included)... Normal [facility] HEMOGLOBIN A1Con 07-07-2022 Glucose [Mass/Vol] 128 mg/dL Normal [facility] Comment on above: Performed By: #### H BA1E ####[id number] [place] [address] HbA1c (Bld) [Mass fraction] 6.1 % Abnormal [facility] Comment on above: Result Comment: Diag nosis of Diabetes-Adults Non-Diabetic: < or = 5.6% Increased risk for developing diabetes: 5.7-6.4% Diagnostic of diabetes: > or = 6.5% . Monitoring of Diabetes Age (y) Therapeutic Goal (%) Adults: >18 <7.0 Pediatrics: 13-18 <7.5 7-12 <8.0 0- 6 7.5-8.5 [place] [employer]. Diabetes Care 33(S1), Aug 2009. Performed By: #### H BA1E ####[id number] [place] [address] Rehab Note-individual therap yon 07-07-2022 Rehab Note-individual therapy Rehab: Info: Disciplineoccupationa l therapist Mode of Treatmentindividual therapy; occupational therapy Time IN15:12 Time OUT15:39 Total Treatment [id number] Patient in ... at end of sessionbed, 3 railings up; alarm on Communicated with ... at end of sessionbedside nurse; RN updated on pt ADL and mobility status Patient Effortgood Symptoms Noted During/After Treatmentfatigue Treatment Considerations/Commen tsPer handoff with nursing prior to therapy visit, patients pain and vitals are stable. Additional concern for this patient related to therapy session: none. Patient Response to TreatmentPt supine in bed upon OT arrival. Pt pleasant and agreeable to participate in OT treatment. Line and Tubestelemetry Vision/Cognition: Affect/Mental Status (Cognitive)WFL Mobility/Tone: Bed Mobility Assessment/Interventi onssupine to sit; sit to supine Pizaxd-pj-Tgc [place] (Bed Mobility)standby assist; 1 person assist; increased time to perform Ehf-si-Rfglmm [place] (Bed Mobility)minimum assist (75% patient effort); 1 person assist; to manage LLE Transfer Assessment/Interventi onssit to stand transfer; stand to sit transfer Sit-Stand [place] (Transfers)contact guard; 1 person assist; 2 trials with LUE guarded Stand-Sit [place] (Transfers)contact guard; 1 person assist; 2 trials with LUE protected Impairments Impacting Function (Mobility)balance; endurance/activity tolerance; strength; postural/trunk control; motor planning; muscle tone abnormal; motor control; grasp; coordination; range of motion ADL: BADL Assessment/Interventi onupper body dressing; lower body dressing [place] Level (Upper Body Dressing)Pt educated on one handed technique to don shirt seated EOB. Pt performed task with min A; minimum assist (75% patient effort) [place] Level (Lower Body Dressing)Pt educated on one handed dressing technique to don pants and socks. Pt threaded pants seated EOB with min A and pull pants over hips in standing with mod A. Pt donned socks seated EOB with figure four technique and one handed dressing technique with CGA; moderate assist (50% patient effort) Impairments, BADL Safety/Performancebal ance; endurance/activity tolerance; grasp/prehension; coordination; motor control; motor planning; muscle tone abnormality; strength; trunk/postural control; range of motion Skilled BADL Treatment/Interventio nhemi/one-hand technique; compensatory training Motor: Sitting, Static (Balance)SBA Sitting, Dynamic (Balance)CGA Ddu-qp-Oomxk (Balance)CGA Standing, Static (Balance)CGA-min A Standing, Dynamic (Balance)min A without RUE support on railing to perform LB dressing task Systems Impairment Contributing to Balance Disturbance (Balance)neuromuscula r Identified Impairments Contributing to Balance Disturbance (Balance)strength decreased; postural control impaired; ROM (range of motion) decreased; muscle tone abnormal; motor control impaired; coordination impaired Sensory: Comment, Pre/Post Treatment PainPt reported pain in L hand as tolerable Health: Observed Emotional Statecooperative; pleasant; calm Plan of Care Reviewed Withpatient Outcomes Tools: Putting on and taking off regular lower body clothinga lot Bathing (including washing, rinsing, drying)a lot Toileting, which includes using toilet, bedpan or urinala lot Putting on and taking off regular upper body clothinga little Taking care of personal grooming such as brushing teetha little Eating Mealsa little AM-PAC (OT) Total Score15 Short Term Goals: Bed Mobility: Date [id number] 2 Bed Mobility: [place] Level Goalcontact guard Bed Mobility: Physical Assist Level Goalverbal cues, 1-person assist Bed Mobility: Time Frame for Goal2 wks Functional Transfer: Established [id number] Functional Transfer: Goal DetailsPt will complete muq-ws-katdn, bed to chair and toilet transfer with min ax1 using LRAD in order to increase overall independence and safety with functional mobility. Functional Transfer: Time Frame for Goal2 wks Balance: Established Balance: Goal DetailsPt will perform 5 minutes of static/dynamic standing tasks while performing ADLs with CGA and minimal verbal cues maintaining safety and balance 100% of time. Balance: Time Frame for Goal2 wks Strength: Established [id number] Strength Train: Goalincrease 1 MMT grade in L UE for independence and safety with ADLs/functional mobility Strength Train: Upper Extremities GoalLeft: shoulder wrist hand elbow upper extremity(s) Strength Train: Time Frame for Goal2 wks Eating/Self Feeding: Established Eating/Self Feeding: [place] Level Goalmodified independent; demo's BUE integration; uses R UE to integrate L UE into feeding tass Eating/Self Feeding: Physical Assist Levelset-up Eating/Self Feeding: Assistive Device Goalnonslip matting Eating/Self F (more content not included)... Normal [facility] BASIC METABOLIC PANELon 11-1 Anion gap [Moles/Vol] 12 mmol/L Normal 10 - 20 [facility] Comment on above: Performed By: #### B MP ####[facility] [id number] [place] [address] Calcium [Mass/Vol] 9.6 mg/dL Normal 8.6 - 10.3 [facility] Comment on above: Performed By: #### B MP ####[facility] [id number] [place] [address] Chloride [Moles/Vol] 101 mmol/L Normal 98 - 107 [facility] Comment on above: Performed By: #### B MP ####[facility] [id number] [place] [address] Creatinine [Mass/Vol] 1.04 mg/dL Normal 0.50 - 1.05 [facility] Comment on above: Performed By: #### B MP ####[facility] [id number] [place] [address] GFR/1.73 sq M.predicted among non-blacks MDRD (S/P/Bld) [Vol rate/Area] 57 mL/min/{1.73_m2} Abnormal >90 [facility] Comment on above: Result Comment: CALC ULATIONS OF ESTIMATED GFR ARE PERFORMED USING THE 2020 CKD-EPI STUDY REFIT EQUATION WITHOUT THE RACE VARIABLE FOR THE IDMS-TRACEABLE CREATININE METHODS. https://jasn.asnjournals.org/content/early//ASN.540596 6319 Performed By: #### B MP ####[facility] [id number] [place] [address] Glucose [Mass/Vol] 111 mg/dL High 74 - 99 [facility] Comment on above: Performed By: #### B MP ####[facility] [id number] [place] [address] HCO3 (Bld) [Moles/Vol] 27 mmol/L Normal 21 - 32 [facility] Comment on above: Performed By: #### B MP ####[facility] [id number] [place] [address] Potassium [Moles/Vol] 4.4 mmol/L Normal 3.5 - 5.3 [facility] Comment on above: Performed By: #### B MP ####[facility] [id number] [place] [address] Sodium [Moles/Vol] 136 mmol/L Normal 136 - 145 [facility] Comment on above: Performed By: #### B MP ####[facility] [id number] [place] [address] Urea nitrogen [Mass/Vol] 19 mg/dL Normal 6 - 23 [facility] Comment on above: Performed By: #### B MP ####[facility] [id number] [place] [address] CBCon 07-06-2022 Erythrocyte distribution width (RBC) [Ratio] 12.8 % Normal 11.5 - 14.5 [facility] Comment on above: Performed By: #### C BC ####[facility] [id number] [place] [address] Hematocrit (Bld) [Volume fraction] 41.8 % Normal 36.0 - 46.0 [facility] Comment on above: Performed By: #### C BC ####[facility] [id number] [place] [address] Hemoglobin (Bld) [Mass/Vol] 13.6 g/dL Normal 12.0 - 16.0 [facility] Comment on above: Performed By: #### C BC ####[facility] [id number] [place] [address] MCHC (RBC) [Mass/Vol] 32.5 g/dL Normal 32.0 - 36.0 [facility] Comment on above: Performed By: #### C BC ####[facility] [id number] [place] [address] MCV (RBC) [Entitic vol] 92 fL Normal 80 - 100 [facility] Comment on above: Performed By: #### C BC ####[facility] [id number] [place] [address] Platelets (Bld) [#/Vol] 289 10*3/uL Normal 150 - 450 [facility] Comment on above: Performed By: #### C BC ####[facility] [id number] [place] [address] RBC 4.52 x10E12/L Normal 4.00 - 5.20 [facility] Comment on above: Performed By: #### C BC ####[facility] [id number] [place] [address] WBC (Bld) [#/Vol] 9.4 10*3/uL Normal 4.4 - 11.3 [facility] Comment on above: Performed By: #### C BC ####[facility] [id number] [place] [address] Clinical Event Note-discharg marielos 07-06-2022 Clinical Event Note-discharge Clinical Event: Clinical Event Note: Topicdischarge Details More than 30 minutes were spent in coordinating patient discharge. As a courtesy for the physician, the patient was discharged but not evaluated by AGRONOMY LOCATION MANAGER. After all labs and VS were reviewed the decision was made by Dr. Jaeger that the patient was medically stable for discharge. The patient was prepared to discharge to MD when insurance authorized. Objective Information T PRBPMAPSpO2 [id number] % Date/Time07/06 12: 12: 12: 12: 12: 12:00 Range(35.9C - 37C ) (61 - 103 ) (11 - 25 ) (127 - 190 )/ (47 - 96 ) (89 - 93 ) (91% - 97% ) Highest temp of 37 C was recorded at 07/05 20:00 Electronic Signatures: Arturo Graham (ALEXANDRA, PATTERN MECHANIC-POPPED [employer]N OVEN ATTENDANT) (Signed 07-Jul-2022 14:48) Authored: Clinical Event Note Last Updated: 07-Jul-2022 14:48 by Arturo Graham (DNP, PATTERN MECHANIC-P[employer]PED [employer] OV[employer] ATTENDANT) Normal [facility] Daily Progress Note-General Internal Medicineon 07-06-2022 Daily Progress Note-General Internal Medicine Service: General Internal Medicine Subjective Data: YANELI BASURTO is a 71 year old Female who is Hospital Day # 3. Had rough night BP was elevated ,had more pronounce dysarthria. Feels lot better this am BP is 141/47,no chest pain, speech improved Left arm remains flaccid without any improvement left leg strength is improved significantly. And patient is able to ambulate with physical therapy. Overall general condition is improved and she is ready to be discharged to acute rehab when bed is available. Objective Data: Objective Information: T PRBPMAPSpO2 [id number] % Date/Time07/06 8: 8: 8: 8: 12: 8:00 Range(35.9C - 37C ) (61 - 103 ) (11 - 25 ) (127 - 190 )/ (47 - 96 ) (89 - 93 ) (91% - 97% ) Highest temp of 37 C was recorded at 07/05 20:00 Pain reported at 07/06 4:00: 0 = None ---- Intake and Output ----- Mn/Dy/Year TimeIntakeOutputNet Jul 06, 2022 6:00 [id number] Jul 05, 2022 10:00 [id number] Jul 05, 2022 2:00 [id number] The Intake and Output Totals for the last 24 hours are: IntakeOutputNet [id number] T PRBPMAPSpO2 Value36.50448583/7080 94% Date/Time07/07 2:1110/18 2:1111 2:1111 2: 0:00109/06 2:11 Range(35.9C - 36.8C ) (57 - 79 ) (16 - 18 ) (108 - 152 )/ (47 - 88 ) (80 - 86 ) (94% - 97% ) Physical Exam by System: Constitutional: Awake and alert, comfortable, cooperative, afebrile Eyes: PERRL, EOMI, clear sclera ENMT: mucous membranes moist, no apparent injury, no lesions seen Head/Neck: Neck supple, no apparent injury, thyroid without mass or tenderness, No JVD, trachea midline, no bruits Respiratory/Thorax: Patent airways, CTAB, normal breath sounds with good chest expansion, thorax symmetric Cardiovascular: Rate and rhythm is regular, normal S1-S2, no gallop or pericardial rub, 1/6 systolic ejection murmur left sternal border, no CHF. Gastrointestinal: Nondistended, soft, non-tender, no rebound tenderness or guarding, no masses palpable, no organomegaly, +BS, no bruits Genitourinary: Not examined Musculoskeletal: Remote bilateral total knee replacement. Extremities: normal extremities, no cyanosis edema, contusions or wounds, no clubbing Neurological: Awake and alert, dysarthria, left facial droop, flaccid left upper arm. Power decreased in left lower extremity 3/5. No sensory impairment, tendon reflexes are brisk in the lower extremities and extensor plantar on the left. Gait was not tested. Breast: Not examined Lymphatic: No significant lymphadenopathy Psychological: Appropriate mood and behavior Skin: Warm and dry, no lesions, no rashes Medication: Medications: Continuous Medications No continuous medications are active Scheduled Medications 1. Atorvastatin: 40 mg Oral Daily 2. Carvedilol: 12.5 mg Oral 2 Times a Day 3. Docusate: 100 mg Oral 2 Times a Day 4. Lisinopril: 40 mg Oral Daily 5. Melatonin: 3 mg Oral Daily 1800 6. Venlafaxine Extended Release: 75 mg Oral Daily PRN Medications 1. Albuterol 2.5 mg - Ipratropium 0.5 mg/ 3 mL Neb Soln: 3 mL Inhalation Every 6 Hours 2. hydrALAZINE (APRESOLINE) Injectable: 10 mg IntraVenous Push Every 1 Hour 3. hydrOXYzine Hydrochloride (ATARAX): 25 mg Oral Every 6 Hours Recent Lab Results: Results: I have reviewed these laboratory results: Basic Metabolic Panel Trending View [id number] 06:19:00 05-Jul-2022 06:02:00 Glucose, Mhogb537 H 115 H NA136 136 K4.4 4.2 CL101 102 Bicarbonate, Serum27 28 Anion Gap, Serum12 10 BUN19 19 CREAT1.04 0.81 GFR Eqcmum69 A 77 Calcium, Serum9.6 9.3 Complete Blood Count Trending View [id number] 06:19:00 05-Jul-2022 06:02:00 White Blood Cell Count9.4 8.5 Red Blood Cell Count4.52 4.20 HGB13.6 12.6 HCT41.8 38.4 MCV92 91 MCHC32.5 32.8 FVQ271 256 RDW-CV12.8 12.8 Glucose_POCT Trending View [id number] 11:55:00 05-Jul-2022 05:40:00 05-Jul-2022 00:34:00 04-Jul-2022 18:03:00 04-Jul-2022 11:47:00 Glucose-MOIV487 H 112 H 122 H 112 H 132 H Lipid Panel 05-Jul-2022 06:02:00 ResultValue Cholesterol, Serum 170 . AGE DESIRABLE BORDERLINE HIGH HIGH 0-19 Y 0 - 169 170 - 199 >/= 200 20-24 Y 0 - 189 190 - 224 >/= 225 >24 Y 0 - 199 200 - 239 >/= 240 All ranges are based on fasting samp HDL Cholesterol, Serum 44.5 . AGE VERY LOW LOW NORMAL HIGH 0-19 Y < 35 < 40 40-45 ---- 20-24 Y ---- < 40 >45 ---- >24 Y ---- < 40 40-60 >60. Cholesterol/HDL Ratio 3.8 REF VALUESDESIRABLE < 3.4HIGH RISK > 5.0 LDL, Level 103 . NEAR BORD AGE DESIRABLE OPTIMAL HIGH HIGH VERY HIGH 0-19 Y 0 - 109 --- 110-129 >/= 130 ---- 20-24 Y 0 - 119 --- 120-159 >/= 160 ---- >24 Y 0 - H VLDL, Serum 22 Triglycerides, Serum 111 . AGE DESIRABLE BORDERLINE HIGH HIGH VERY HIGH 0 D-90 D 19 - 174 ---- ---- ----91 D- 9 Y 0 - 7 (more content not included)... Normal [facility] Rehab Note-individual therap yon 07-06-2022 Rehab Note-individual therapy Rehab: Info: Disciplinephysical therapist Mode of Treatmentphysical therapy; individual therapy Time IN11:37 Time OUT11:47 Total Treatment [id number] Patient in ... at end of sessionchair; alarm on Communicated with ... at end of sessionbedside nurse Patient Effortgood Symptoms Noted During/After Treatmentfatigue Patient Response to TreatmentFatigue, otherwise tolerated well Patient/Family/Caregi desmond Comments/Observations Pt alone in room. Pt presented to physical therapist supine in bed. RN cleared pt for therapy. Pt is pleasant and agreeable to PT. Telemetry in place Vision/Cognition: Affect/Mental Status (Cognitive)WFL Orientation Status (Cognition)oriented x 3 ROM: Lower Extremity: Range of Motionleft lower extremity ROM WFL; right lower extremity ROM WFL MMT: Lower Extremity: Manual Muscle Testing (MMT)Grossly 3+/5 bilateral hip flexion/extension, knee flexion/extension, and ankle dorsiflexion/plantarf lexion as evidenced by functional activities and antigravity movements Mobility/Tone: Bed Mobility Assessment/Interventi onssupine to sit Gmrrbg-oo-Xqm [place] (Bed Mobility)contact guard; 1 person assist Assistive Device (Bed Mobility)bed rails Comment, Bed Mobilityhead of bed elevated Transfer Assessment/Interventi onssit to stand transfer; stand to sit transfer Sit-Stand [place] (Transfers)minimum assist (75% patient effort); 1 person assist; verbal cues Sit-Stand Assistive Device (Transfers)walker, front-wheeled; gait belt Stand-Sit [place] (Transfers)minimum assist (75% patient effort); 1 person assist; verbal cues Stand-Sit Assistive Device (Transfers)walker, front-wheeled; gait belt Gait/Stairs Locomotiongait/ambula tion independence; gait/ambulation assistive device; distance ambulated Gait Locomotion (Gait)minimum assist (75% patient effort); 1 person assist Assistive Device (Gait Training)walker, front-wheeled; gait belt Distance in Feet (Gait Training)3 feet from bed to chair. assist to keep left hand on walker and to move walker. Left foot movement lag. Comment, Gait/Stairs TrainingStanding in place in front of chair. Marching in place x4 minutes with CG x1 Safety Issues Impacting Function (Mobility)positioning of assistive device Impairments Impacting Function (Mobility)endurance/a ctivity tolerance; balance; grasp; motor control Motor: Sitting, Static (Balance)good balance Sitting, Dynamic (Balance)good balance Qem-zg-Rejoy (Balance)fair balance Standing, Static (Balance)fair balance Standing, Dynamic (Balance)fair balance Sensory: Pre-Treatment Pain Rating0/10 - no pain Post-Treatment Pain Rating0/10 - no pain Health: Observed Emotional Statecooperative; calm Verbalized Emotional Stateacceptance Plan of Care Reviewed Withpatient TherEx: Ankle Ockeeg51 bilat LAQx15 bilat Outcomes Tools: Turning from your back to your side while in a flat bed without using bedrails a little Moving from lying on your back to sitting on the side of a flat bed without using bedrailsa little Moving to and from bed to chair (including a wheelchair)a little Standing up from a chair using your arms (e.g. wheelchair or bedside chair)a little To walk in hospital rooma lot Climbing 3-5 steps with railingtotal AM-PAC (PT) Total Score15 Short Term Goals: Speech Language: Established [id number] Speech Language: Goal Details1. Pt will verbalize comprehension of MRI SPECIALIST recommendations. 2. Pt will successfully utilize intelligibility strategies (e.g. overarticulation, slow rate, increased volume, etc.) at the sentence level with mod cueing 80% of opportunities. Speech Language: Time Frame for Goal2 wks Education: Learnerpatient Barriers to Learningacuteness of illness barrier Methodverbal Outcome Evaluation1=partially meets; needs review Topicprecautions; fall prevention; proper use of adaptive equipment to increase safety and decrease fall risk Outcome Summary: Progress: Physical Therapyprogress towards functional goals is fair DC Recommendations: Discharge Recommendation (PT Eval)High intensity PT to maximize functional mobility, safety and independence. Electronic Signatures: Veronica Bonner (PT) (Signed 06-Jul-2022 12:44) Authored: Info, Vision/Cognition, ROM, MMT, Mobility/Tone, Motor, Sensory, Health, TherEx, Outcomes Tools, Short Term Goals, Education, Outcome Summary, DC Recommendations Last Updated: 06-Jul-2022 12:44 by Veronica Bonner (PT) Normal [facility] Rehab Note-individual therapy Rehab: Info: Disciplinespeech language pathologist Mode of Treatmentindividual therapy Time IN09:56 Time OUT10:10 Total Treatment [id number] Patient in ... at end of sessionbed, 3 railings up; alarm on Communicated with ... at end of sessionbedside nurse Patient Effortadequate Symptoms Noted During/After Treatmentnone Treatment Considerations/Commen tsPt pleasant and awake/alert in chair upon MRI SPECIALIST arrival to room. Reporting some mild improvement. Communicate/Swallow: Motor Speech Assessment/Interventi on/Treatment OutcomePt seen for motor speech tx. Speech is intelligible at the conversational level, though speech quality/articulation is slurred/imprecise. Pt educated on speech strategies for improved articulatory precision. Pt able to independently demonstrate use of strategies through phonetically loaded tongue twisters. Noted improved articulation with use of strategies and pt able to note improvements as well. Discussed different sounds - lingual v labial, etc. Short Term Goals: Speech Language: Established [id number] Speech Language: Goal Details1. Pt will verbalize comprehension of MRI SPECIALIST recommendations. 2. Pt will successfully utilize intelligibility strategies (e.g. overarticulation, slow rate, increased volume, etc.) at the sentence level with mod cueing 80% of opportunities. Speech Language: Time Frame for Goal2 wks Education: Learnerpatient Barriers to Learningcognitive limitations barrier Methodverbal Outcome Summary: Progress: Speech Language Pathologyprogress toward functional goals as expected Electronic Signatures: Cheri Moya (MRI SPECIALIST) (Signed 06-Jul-2022 10:44) Authored: Info, Communicate/Swallow, Short Term Goals, Education, Outcome Summary Last Updated: 06-Jul-2022 10:44 by Cheri Moya (MRI SPECIALIST) Normal [facility] Rehab Note-individual therapy Rehab: Info: Yolande garrison therapist Mode of Treatmentindividual therapy; occupational therapy Time IN08:25 Time OUT09:11 Total Treatment [id number] Patient in ... at end of sessionchair; alarm on Communicated with ... at end of sessionbedside nurse; communicated mobility status to RN Patient Effortexcellent Symptoms Noted During/After TreatmentLUE fatigue noted after activity Treatment Considerations/Commen tsPer handoff with nursing prior to therapy visit, patients pain and vitals are stable. Additional concern for this patient related to therapy session: none. L hemiparesis Patient Response to TreatmentPt supine in bed upon OT arrival. Pt pleasant and agreeable to participate in OT treatment. Line and Tubestelemetry; heplock Vision/Cognition: Affect/Mental Status (Cognitive)Mild sadness regarding situation Orientation Status (Cognition)oriented x 4 Cognitive Function (Cognitive)WFL Able to Follow Commands (Receptive)WFL Mobility/Tone: Bed Mobility Assessment/Interventi onssupine to sit Qjlokh-jj-Fvw [place] (Bed Mobility)minimum assist (75% patient effort); 1 person assist; To manage L side Transfer Assessment/Interventi onssit to stand transfer; stand to sit transfer; bed to chair transfer; toilet transfer Bed-Chair [place] (Transfers)minimum assist (75% patient effort); 1 person assist; L knee blocked, LUE protected. Pt able to take side steps from bed to chair towards the R side Bed-Chair Assistive Device (Transfers)gait belt Sit-Stand [place] (Transfers)minimum assist (75% patient effort); 1 person assist; L knee blocked Sit-Stand Assistive Device (Transfers)gait belt Stand-Sit [place] (Transfers)minimum assist (75% patient effort); 1 person assist; L knee blocked Stand-Sit Assistive Device (Transfers)gait belt Toilet [place] (Transfers)Stand pivot transfer towards R side to commode; minimum assist (75% patient effort); 1 person assist Toilet Assistive Device (Transfer)gait belt Impairments Impacting Function (Mobility)balance; endurance/activity tolerance; strength; postural/trunk control; motor planning; motor control; muscle tone abnormal; coordination; grasp; range of motion ADL: BADL Assessment/Interventi ontoileting; grooming [place] Level (Grooming)minimum assist (75% patient effort); 1 person assist; Pt required assistance with set up and min A overall for oral care seated in chair [place] Level (Toileting)Pt min A for hygiene management with RUE in standing. Anticipate mod A for clothing management; moderate assist (50% patient effort); 1 person assist Impairments, BADL Safety/Performancebal ance; endurance/activity tolerance; grasp/prehension; coordination; motor control; motor planning; muscle tone abnormality; strength; trunk/postural control; range of motion Skilled BADL Treatment/Interventio ncompensatory training; kelly/one-hand technique Motor: Sitting, Static (Balance)supervision for safety Zlx-hk-Cfbbf (Balance)min A x1 Standing, Static (Balance)Min A x1 Standing, Dynamic (Balance)Min A x1 for side steps to R side. Anticipate increased assistance for transfers and side steps towards the L side Systems Impairment Contributing to Balance Disturbance (Balance)neuromuscula r Identified Impairments Contributing to Balance Disturbance (Balance)strength decreased; postural control impaired; ROM (range of motion) decreased; muscle tone abnormal; coordination impaired; motor control impaired Neuromuscular Re-educationWhile seated in chair, pt tolerated 1 set of 10 repetitions of PROM to L hand and wrist. Trace movement (1/5) noted in L wrist and finger flexors. Pt educated on AAROM exercises to perform at hand and wrist. Pt performed AROM forearm pronation/supination and elbow flexion/extension for 1 set of 10 repetitions. Pt performed the following AAROM exercises for 1 set of 10 repetitions at L shoulder: -shoulder flexion to ~90 degrees -shoulder abduction to ~90 degrees -scapular elevation -scapular protraction -scapular retraction Pt tolerated NMRE well this date and did not report any pain. Rest breaks taken as needed throughout. Sensory: Pre-Treatment Pain Rating0/10 - no pain Post-Treatment Pain Rating0/10 - no pain Health: Observed Emotional Statecooperative; pleasant; calm Plan of Care Reviewed Withpatient Outcomes Tools: Putting on and taking off regular lower body clothinga lot Bathing (including washing, rinsing, drying)a lot Toileting, which includes using toilet, bedpan or urinala lot Putting on and taking off regular upper body clothinga lot Taking care of personal grooming such as brushing teetha little Eating Mealsa little AM-PAC (OT) Total Score14 Short Term Goals: Bed Mobility: Date [id number] 2 Bed Mobility: [place] Level Goalcontact guard Bed Mobility: Physical Assist Level Goalverbal cues, 1-person assist (more content not included)... Normal [facility] BASIC METABOLIC PANELon 11- Anion gap [Moles/Vol] 10 mmol/L Normal 10 - 20 [facility] Comment on above: Performed By: #### G YUAN #### [facility] [address] [place] [address] Calcium [Mass/Vol] 9.3 mg/dL Normal 8.6 - 10.3 [facility] Comment on above: Performed By: #### G YUAN #### [facility] [address] [place] [address] Chloride [Moles/Vol] 102 mmol/L Normal 98 - 107 [facility] Comment on above: Performed By: #### G YUAN #### [facility] [address] [place] [address] Creatinine [Mass/Vol] 0.81 mg/dL Normal 0.50 - 1.05 [facility] Comment on above: Performed By: #### G YUAN #### [facility] [address] [place] [address] GFR/1.73 sq M.predicted among non-blacks MDRD (S/P/Bld) [Vol rate/Area] 77 mL/min/{1.73_m2} Normal >90 [facility] Comment on above: Result Comment: CALC ULATIONS OF ESTIMATED GFR ARE PERFORMED USING THE 2020 CKD-EPI STUDY REFIT EQUATION WITHOUT THE RACE VARIABLE FOR THE IDMS-TRACEABLE CREATININE METHODS. https://jasn.asnjournals.org/content//ASN.075524 9655 Performed By: #### G YUAN #### [facility] [address] [place] [address] Glucose [Mass/Vol] 115 mg/dL High 74 - 99 [facility] Comment on above: Performed By: #### G YUAN #### [facility] [address] [place] [address] HCO3 (Bld) [Moles/Vol] 28 mmol/L Normal 21 - 32 [facility] Comment on above: Performed By: #### G YUAN #### [facility] [address] [place] [address] Potassium [Moles/Vol] 4.2 mmol/L Normal 3.5 - 5.3 [facility] Comment on above: Performed By: #### G YUAN #### [facility] [address] [place] [address] Sodium [Moles/Vol] 136 mmol/L Normal 136 - 145 [facility] Comment on above: Performed By: #### G YUAN #### [facility] [address] [place] [address] Urea nitrogen [Mass/Vol] 19 mg/dL Normal 6 - 23 [facility] Comment on above: Performed By: #### G YUAN #### [facility] [address] [place] [address] CBCon 07-05-2022 Erythrocyte distribution width (RBC) [Ratio] 12.8 % Normal 11.5 - 14.5 [facility] Comment on above: Performed By: #### C BC ####[facility] [place] [id number] Hematocrit (Bld) [Volume fraction] 38.4 % Normal 36.0 - 46.0 [facility] Comment on above: Performed By: #### C BC ####[facility] [id number] [place] [id number] Hemoglobin (Bld) [Mass/Vol] 12.6 g/dL Normal 12.0 - 16.0 [facility] Comment on above: Performed By: #### C BC ####[facility] [place] [id number] MCHC (RBC) [Mass/Vol] 32.8 g/dL Normal 32.0 - 36.0 [facility] Comment on above: Performed By: #### C BC ####[facility] [place] [id number] MCV (RBC) [Entitic vol] 91 fL Normal 80 - 100 [facility] Comment on above: Performed By: #### C BC ####[facility] [place] [id number] Platelets (Bld) [#/Vol] 256 10*3/uL Normal 150 - 450 [facility] Comment on above: Performed By: #### C BC ####[facility] [place] [id number] RBC 4.20 x10E12/L Normal 4.00 - 5.20 [facility] Comment on above: Performed By: #### C BC ####[facility] [id number] [place] [address] WBC (Bld) [#/Vol] 8.5 10*3/uL Normal 4.4 - 11.3 [facility] Comment on above: Performed By: #### C BC ####[facility] [id number] [place] [address] Consult - Neuroon 07-05-2022 Consult - Neuro Service: Consult: Consult requested by (Attending Name): Richard Melo Reason: ICH History of Present Illness: History Present Illness: HPI: The patient is a 71-year-old woman with a history of hypertension presenting for acute onset of left-sided weakness numbness and dysarthria. CT scan was done suggestive of left basal ganglia bleed possibly related to hypertension. She was subsequently admitted to [facility] for neurosurgery evaluation for did not have any further surgical input and referred to neurology. Past medical history: Hypertension. Social history: No tobacco no alcohol no illicits. Family history not contributory. Review of system weakness on the right side otherwise unremarkable. Examination: Alert oriented x4 extraocular movement full saccade normal VOR normal pursuit normal. Face is weaker on the left side. Left upper and left lower extremity is weak to 1- out of 5 proximally and distally. Right upper and lower extremity is intact power proximally and distally. Sensations intact on both sides. No abnormal involuntary movements. Allergies: No Known Allergies: Objective: Objective Information: T PRBPMAPSpO2 [id number]/[id number] 92% Date/Time07/05 12: 12: 12: 12: 12: 12:30 Range(36.1C - 36.7C ) (61 - 88 ) (11 - 25 ) (116 - 159 )/ (49 - 75 ) (65 - 93 ) (91% - 97% ) Medications: Medications: Continuous Medications No continuous medications are active Scheduled Medications 1. Atorvastatin: 40 mg Oral Daily 2. Carvedilol: 6.25 mg Oral 2 Times a Day 3. Docusate: 100 mg Oral 2 Times a Day 4. Lisinopril: 40 mg Oral Daily 5. Venlafaxine Extended Release: 75 mg Oral Daily PRN Medications 1. Albuterol 2.5 mg - Ipratropium 0.5 mg/ 3 mL Neb Soln: 3 mL Inhalation Every 6 Hours 2. hydrALAZINE (APRESOLINE) Injectable: 10 mg IntraVenous Push Every 1 Hour Conditional Medication Orders 1. Perflutren Lipid Microsphere (Activated) 1.3 mL / NaCL 0.9% T.V. 10 mL Injectable: 0.5 mL IntraVenous Push Once Recent Lab Results: Results: I have reviewed these laboratory results: Lipid Panel 05-Jul-2022 06:02:00 ResultValue Cholesterol, Serum 170 . AGE DESIRABLE BORDERLINE HIGH HIGH 0-19 Y 0 - 169 170 - 199 >/= 200 20-24 Y 0 - 189 190 - 224 >/= 225 >24 Y 0 - 199 200 - 239 >/= 240 All ranges are based on fasting samp HDL Cholesterol, Serum 44.5 . AGE VERY LOW LOW NORMAL HIGH 0-19 Y < 35 < 40 40-45 ---- 20-24 Y ---- < 40 >45 ---- >24 Y ---- < 40 40-60 >60. Cholesterol/HDL Ratio 3.8 REF VALUESDESIRABLE < 3.4HIGH RISK > 5.0 LDL, Level 103 . NEAR BORD AGE DESIRABLE OPTIMAL HIGH HIGH VERY HIGH 0-19 Y 0 - 109 --- 110-129 >/= 130 ---- 20-24 Y 0 - 119 --- 120-159 >/= 160 ---- >24 Y 0 - H VLDL, Serum 22 Triglycerides, Serum 111 . AGE DESIRABLE BORDERLINE HIGH HIGH VERY HIGH 0 D-90 D 19 - 174 ---- ---- ----91 D- 9 Y 0 - 74 75 - 99 >/= 100 ---- 10-19 Y 0 - 89 90 - 129 >/= 130 ---- Complete Blood Count 05-Jul-2022 06:02:00 ResultValue White Blood Cell Count 8.5 Red Blood Cell Count 4.20 HGB 12.6 HCT 38.4 MCV 91 MCHC 32.8 PLT 256 RDW-CV 12.8 Basic Metabolic Panel 05-Jul-2022 06:02:00 ResultValue Glucose, Serum 115 H NA 136 K 4.2 CL 102 Bicarbonate, Serum 28 Anion Gap, Serum 10 BUN 19 CREAT 0.81 GFR Female 77 Calcium, Serum 9.3 Radiology Results: Results: Impression: No significant change in 28 mm acute hemorrhage in the right basal ganglia since 5:14 a.m[address] the same day. CT Head without Contrast [Jul 04 2022 11:43AM] Impression: 1.5 x 1.5 x 2.5 cm acute intracranial hemorrhage centered in the right lentiform nucleus. No significant mass effect or midline shift. Document Only: The critical information above was relayed directly by me by telephone to ALIE UMANZOR on 07/04/2022 at 5:44 am with readback verification. CT Brain Attack Head without Contrast [Jul 04 2022 6:01AM] Problem List: Admitting Dx: ICH (intracerebral hemorrhage): Onset Date: 04-Jul-2022 Additional Dx: Left hemiplegia: Primary hypertension: Stroke-like symptoms: Assessment/Recommenda tions: Assessment: The patient is 71-year-old woman here with a right basal ganglia bleed leading to left hemiplegia. Possibly related to hypertension. However will rule out other possible etiologies. We will get MRI brain with and without contrast. Likely this may be not conclusive at this time and if that is the case then we would repeat the MRI after 4 to 6 weeks followed by outpatient vascular neurology appointment. 70 minutes spent in care of this patient. Patient was seen in the ICU. Consult Status: Consult Order ID: [id number] Electronic Signatures: Dixon Hernández) (Signed 16 (more content not included)... Normal [facility] Daily Progress Note-General Internal Medicineon 07-05-2022 Daily Progress Note-General Internal Medicine Service: General Internal Medicine Subjective Data: YANELI BASURTO is a 71 year old Female who is Hospital Day # 2. Patient interviewed and examined, she is coming along fine, she is fully awake and alert communicating well. No new changes, no headache or dizziness. Improvement of left arm weakness, left arm is flaccid. Left leg weakness is improved significantly. Patient speech is improved and no difficulty swallowing. Blood pressures are mildly elevated around 159/80 mmHg, will adjust the dosage of medications. Objective Data: Objective Information: T PRBPMAPSpO2 [id number]/7190 82% Date/Time07/05 9: 10: 10: 9: 9: 9:00 Range(36.1C - 36.6C ) (61 - 88 ) (11 - 25 ) (116 - 158 )/ (49 - 75 ) (65 - 93 ) (82% - 97% ) Pain reported at 07/05 8:00: 0 = None ---- Intake and Output ----- Mn/Dy/Year TimeIntakeOutputNet Jul 05, 2022 6:00 [id number] Jul 04, 2022 10:00 [id number] Jul 04, 2022 2:00 [id number] The Intake and Output Totals for the last 24 hours are: IntakeOutputNet [id number] Physical Exam by System: Constitutional: Awake and alert, comfortable, cooperative, afebrile Eyes: PERRL, EOMI, clear sclera ENMT: mucous membranes moist, no apparent injury, no lesions seen Head/Neck: Neck supple, no apparent injury, thyroid without mass or tenderness, No JVD, trachea midline, no bruits Respiratory/Thorax: Patent airways, CTAB, normal breath sounds with good chest expansion, thorax symmetric Cardiovascular: Rate and rhythm is regular, normal S1-S2, no gallop or pericardial rub, 1/6 systolic ejection murmur left sternal border, no CHF. Gastrointestinal: Nondistended, soft, non-tender, no rebound tenderness or guarding, no masses palpable, no organomegaly, +BS, no bruits Genitourinary: Not examined Musculoskeletal: Remote bilateral total knee replacement. Extremities: normal extremities, no cyanosis edema, contusions or wounds, no clubbing Neurological: Awake and alert, dysarthria, left facial droop, flaccid left upper arm. Power decreased in left lower extremity 3/5. No sensory impairment, tendon reflexes are brisk in the lower extremities and extensor plantar on the left. Gait was not tested. Breast: Not examined Lymphatic: No significant lymphadenopathy Psychological: Appropriate mood and behavior Skin: Warm and dry, no lesions, no rashes Medication: Medications: Continuous Medications No continuous medications are active Scheduled Medications 1. Atorvastatin: 40 mg Oral Daily 2. Carvedilol: 12.5 mg Oral 2 Times a Day 3. Docusate: 100 mg Oral 2 Times a Day 4. Lisinopril: 40 mg Oral Daily 5. Melatonin: 3 mg Oral Daily 1800 6. Venlafaxine Extended Release: 75 mg Oral Daily PRN Medications 1. Albuterol 2.5 mg - Ipratropium 0.5 mg/ 3 mL Neb Soln: 3 mL Inhalation Every 6 Hours 2. hydrALAZINE (APRESOLINE) Injectable: 10 mg IntraVenous Push Every 1 Hour 3. hydrOXYzine Hydrochloride (ATARAX): 25 mg Oral Every 6 Hours Recent Lab Results: Results: I have reviewed these laboratory results: Glucose_POCT Trending View [id number] 11:55:00 05-Jul-2022 05:40:00 05-Jul-2022 00:34:00 04-Jul-2022 18:03:00 04-Jul-2022 11:47:00 04-Jul-2022 05:36:00 Glucose-[id number] H 112 H 122 H 112 H 132 H 135 H Lipid Panel 05-Jul-2022 06:02:00 ResultValue Cholesterol, Serum 170 . AGE DESIRABLE BORDERLINE HIGH HIGH 0-19 Y 0 - 169 170 - 199 >/= 200 20-24 Y 0 - 189 190 - 224 >/= 225 >24 Y 0 - 199 200 - 239 >/= 240 All ranges are based on fasting samp HDL Cholesterol, Serum 44.5 . AGE VERY LOW LOW NORMAL HIGH 0-19 Y < 35 < 40 40-45 ---- 20-24 Y ---- < 40 >45 ---- >24 Y ---- < 40 40-60 >60. Cholesterol/HDL Ratio 3.8 REF VALUESDESIRABLE < 3.4HIGH RISK > 5.0 LDL, Level 103 . NEAR BORD AGE DESIRABLE OPTIMAL HIGH HIGH VERY HIGH 0-19 Y 0 - 109 --- 110-129 >/= 130 ---- 20-24 Y 0 - 119 --- 120-159 >/= 160 ---- >24 Y 0 - H VLDL, Serum 22 Triglycerides, Serum 111 . AGE DESIRABLE BORDERLINE HIGH HIGH VERY HIGH 0 D-90 D 19 - 174 ---- ---- ----91 D- 9 Y 0 - 74 75 - 99 >/= 100 ---- 10-19 Y 0 - 89 90 - 129 >/= 130 ---- Complete Blood Count 05-Jul-2022 06:02:00 ResultValue White Blood Cell Count 8.5 Red Blood Cell Count 4.20 HGB 12.6 HCT 38.4 MCV 91 MCHC 32.8 PLT 256 RDW-CV 12.8 Basic Metabolic Panel 05-Jul-2022 06:02:00 ResultValue Glucose, Serum 115 H NA 136 K 4.2 CL 102 Bicarbonate, Serum 28 Anion Gap, Serum 10 BUN 19 CREAT 0.81 GFR Female 77 Calcium, Serum 9.3 Coagulation Screen 04-Jul-2022 11:07:00 ResultValue Prothrombin Time, Plasma 12.3 International Normalized Ratio, Plasma 1.1 Activated Partial Thromboplastin Time 33 Complete Blood Count + Differential Trending View [id number] 11:07:00 04-Jul-2022 04 (more content not included)... 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 RECS ICU care SBP<160 (cont home meds, cardene gtt if needed, otherwise hydralazine/labetalol pushes PRN) no further imaging needed stroke neurology recs ensure any coagulopathies are correct replete electrolytes per ICU protocol mIVF for goal euvolemia home meds as appropriate SCDs, okay for DVT chemoppx post-bleed day 2 07/05 10 a tcc Met with patient about discharge plans. Patient from home with family. Prior to admit, was independent with all care and ambulation, no hhc services. Has pcp, is able to get to appts and afford meds. [employer] insurance. She would be interested in SNF or [place] if rec. I did provide her with [facility] list for SNf and [place] PTOT to see today. Jose 07/05/22 12:28 PCN: Provided skilled and acute rehab nursing list to patient/family from [facility] directory that includes facilities that are within Post - Acute Quality Network, as well as meeting patients medical needs, and are in-network for patients insurance; while also in discharge geographic area patient prefers, and identifies each facilities [facility] star rating. Facilities in order of preference are 1. [facility] DAVID MARIA MD 2. [facility] SNF. Referral sent to [facility] for processing. Mckenna CONN, JANE [phone] 07/05/2022 1342 DSC: Built and sent new SNF referral to [facility] [facility] [place] referral to [facility] David Maria, awaiting response. Alaina Mahmood Care Navigation Team [phone] 07/06/22 1200 Walking Dragline Oiler Note TCC spoke with Venita Barker from [facility] david [place]. they do not anticipate getting Auth today . will need follow up tomorrow and updated progress notes and PT OT sent in the morning also. vitals from today and neg covid from 07/04 relayed to Venita as well. Miriam Nieto RN BSN Transition Walking Dragline Oiler HALO 07/07/2022 1002 DSC: Updates sent to [facility] AR. Kiley Mcdowell Discharge Pressure Welder 07/07/2022 1316 DSC: Final orders sent and transport requested. Kiley Mcdowell Discharge Pressure Welder 07/07/2022 1358 DSC: Transport confirmed for 8pm continuous pickling line pickler, facility notified. Kiley Mcdowell Discharge Pressure Welder 07/07/22 Bianca Mccollum RN TCC spouse, web services manager, patient placement coordinator, pcn all aware of transport time for today. 07/07/2022 Called report to Noa nurse at [facility] rehab, patient to be picked up at 8pm. discharge papers ready. Yolanda Carney RN [id number] Assessment: Discharge Planning Assessment [id number] Primary Contact Name and NumberCOLE BASURTO(1) Prior Level of Functioningindependen t Lives Withadult child(piotr); spouse(1) Living Arrangementshouse(1) Stated Reason for AdmissionICH(1) Arrived Fromhospital (1) PCPKaleb Javier Preferred Pharmacy Name/Locationlisted Recent Falls/ Injury/ Need Assist with Ambulationonly now, since ich DME Supplier Name/Numberna Home Care Agency/Support Servicesna Diabetic/Supplies Neededna Hemodialysis Schedulena Other Needsna Resource/Environmenta l Concernsnone(1) [facility]ticipated [facility]) Services Anticipated at [facility]rehabil[facility] ion services; home health care(1) PCP Last Date Asiya few monthes ago Insuranceaetna medicare Equipment Needed After Dischargebath bench; standard walker Anticipated Discharge Facility/Level of Care NeedsInpatient Rehab Facility (IRF) Medication Adherence/Afford/Obta inyes O2 LPMna Home O2 Supplierna Discharge Documentation: Discharge/Transfer Date/[id number]-[id number]-2773 Transportation Methodambulance Discharge Modestretcher Code StatusCode Status order at time of discharge: Full Code Discharge Order Writtenyes [place] DNR Form Sent with Patient and/or Familyn/a Final DispositionInpatient Rehab Facility (IRF) Electronic Signatures: Bianca Mccollum (RN) (Signed 07-Jul-2022 14:18) Authored: Discharge Planning Yolanda Carney (RN) (Signed 07-Jul-2022 15:35) Authored: Discharge Planning, Discharge Documentation Lorri Dukes (CLIN COOR) (Signed 05-Jul-2022 11:06) Authored: Discharge Planning, Assessment Alaina Mahmood (COOR) (Signed 05-Jul-2022 13:42) Authored: Discharge Planning Mckenna Mendoza (PCN) (Signed 05-Jul-2022 15:55) Authored: Discharge Planning Miriam Nieto (RN) (Signed 06-Jul-2022 12:17) Authored: Discharge Planning, Discharge Documentation Kiley Mcdowell (COOR) (Signed 07-Jul-2022 14:00) Authored: Discharge Planning, Discharge Documentation Last Updated: 07-Jul-2022 15:35 by Yolanda Carney (RN) References: 1. Data Referenced From Patient Profile - Adult v2 04-Jul-2022 11:48 Normal [facility] Discharge [id number] 022 Discharge Profile2 Discharge Orders: Anticipated Discharge Date: Anticipated Discharge [id number] Hospital Providers: Provider RoleProvider Name Octavio Phelps DNAR: Code Status at Discharge: Full Code Activity: activity with assistance. Diet: Dietspecial diet Special Dietsodium 2 gram Tests 1: Test Name(s)Repeat MRI brain in 4-6 weeks Call Provider If (Homegoing Patients): Any new concerning symptoms. Gold Form Orders: Care Recommendation: I recommend that INPATIENT care is required at:Acute rehab Estimated StayConvalescent stay < 30 days PrognosisGood Rehab Potential/FunctionImp rove Provider CertificationRESIDENT /JANNETH: Send to attending for certification Attending Octavio Larry Attending Provider [id number] Therapy Orders: Occupational Therapy OrdersEval and Treat ([facility]) Physical Therapy OrdersEval and Treat ([facility]) Speech Therapy OrdersEval and Treat ([facility]) Provider Follow Up: Physician To Follow at Skilled/RehabAttendin g Physician at Skilled/Rehab Provider FINAL REVIEW of Orders: Final Review: Final Review of Medication Reconciliation and Orders Completedby PATTERN MECHANIC Ming Graham DNP, PATTERN MECHANIC-POPPED CORN OVEN ATTENDANT at 05-Jul-2022 18:02:04 Appointments: Follow-Up Appointment 01: Physician/Dept/Servic eDr. RENETTA Martinez Reason for Referralpost hospital follow up, routine medical management, medication refills Follow-Up Appointment 02: Physician/Dept/Servic eDrFaheem Owens Vascular Neurology Reason for Referralright basal ganglia bleed leading to left hemiplegia Scheduled Date/[id number]-Ipt-9721 14:00 [id number] [facility] [address] [place] [address] Phone [phone] Comments( Request for a sooner appointment sent to the department of Neurology. 1st available provider and location. Please wear a mask to your visit. Please bring insurance card, photo ID and co-pay to your appointment. Please call the office if you cannot keep this appointment. Gold Form - Nursing Summary: Special Treatments/Procedures (in past 14 days): Chemotherapyno Dialysisno IV Medicationno Oxygen Therapyno Transfusionsno Feverno Radiationno Ventilatorno Tracheostomyno Suctioningno Nutrition: Nutritional Statusfeeds self Nutrition Commentneeds to place pills in the right cheek Sensory/Comfort: Visionadequate Hearingadequate Speechclear Painno Elimination: Bowelcontinent Last Bowel [id number] Toiletingbedside commode Safety: Siderailsyes Siderails Number/Reasonfall risk Restraintsno Sitterno Fall Riskweakness Medication/Hygiene/Mo bility: Medication Administrationsupervi grupo only Bathingassist Dressingassist Bed Mobilitypersons/equip ment Wheelchairpersons/equ ipment Transferspersons/equi pment Ambulationpersons/equ ipment Electronic Signatures: Yaneli Jones (PT ACC REP) (Signed 06-Jul-2022 13:29) Authored: Discharge Orders, Appointments Yolanda Carney (RN) (Signed 07-Jul-2022 14:44) Authored: Discharge Orders, Gold Form - Nursing Summary Arturo Graham (DNP, PATTERN MECHANIC-POPPED CORN OVEN ATTENDANT) (Signed 05-Jul-2022 18:02) Authored: Discharge Orders, Gold Form Orders, Provider FINAL REVIEW of Orders, Appointments, Gold Form - Pattern Maker Summary Last Updated: 07-Jul-2022 14:44 by Yolanda Carney (RN) [facility] Echocardiogramon 07-05-2022 Echocardiography [facility] , [address] [place] [address] and TRANSTHORACIC ECHOCARDIOGRAM REPORT Patient Name: YANELI Ralph Physician: [id number] Tyson Malik MD Study Date: 07/05/2022 Referring Physician: RICHARD MELO MRN/PID: [id number] PCP: Accession/Order#: [id number] Department Location: [facility] Date of : 1950 Fellow: Gender: F Nurse: Admit Date: 07/04/2022 Urologic Nurse: Cnadace Epps RDCS Admission Status: Inpatient - Additional Staff: Routine Height: 159.00 cm CC Report to: 4 ICU [facility] Weight: 84.00 kg Study Type: Echocardiogram BSA: 1.86 m2 Blood Pressure: 159 /66 mmHg Diagnosis/ICD: G45.9-Transient cerebral ischemic attack, unspecified (NOT on LCD) Indication: Stroke Procedure/CPT: Echo Complete w Full Doppler-[id number] Patient History: Pertinent History: HTN. Study Detail: The following Echo studies were performed: 2D, M-Mode, Doppler and color flow. Technically challenging study due to poor acoustic windows and body habitus. Definity used as a contrast agent for endocardial border definition. Total contrast used for this procedure was 2 mL via IV push. PHYSICIAN INTERPRETATION: Left Ventricle: The left ventricular systolic function is normal, with an estimated ejection fraction of 70-75%. There are no regional wall motion abnormalities. The left ventricular cavity size is normal. There is left ventricular concentric remodeling. Spectral Doppler shows a normal pattern of left ventricular diastolic filling. Left Atrium: The left atrium is normal in size. A bubble study using agitated saline was performed. Bubble study is negative. Right Ventricle: The right ventricle is normal in size. There is normal right ventricular global systolic function. Right Atrium: The right atrium is normal in size. Aortic Valve: The aortic valve is trileaflet. There is no evidence of aortic valve regurgitation. The peak instantaneous gradient of the aortic valve is 11.8 mmHg. The mean gradient of the aortic valve is 8.0 mmHg. Mitral Valve: The mitral valve is normal in structure. There is trace mitral valve regurgitation. Tricuspid Valve: The tricuspid valve is structurally normal. There is trace tricuspid regurgitation. The Doppler estimated RVSP is within normal limits at 12.9 mmHg. Pulmonic Valve: The pulmonic valve is structurally normal. There is no indication of pulmonic valve regurgitation. Pericardium: There is no pericardial effusion noted. Aorta: The aortic root is normal. In comparison to the previous echocardiogram(s): There are no prior studies on this patient for comparison purposes. CONCLUSIONS: 1. Left ventricular systolic function is normal with a 70-75% estimated ejection fraction. 2. RVSP within normal limits. QUANTITATIVE DATA SUMMARY: 2D MEASUREMENTS: Normal Ranges: LAs: 2.80 cm (2.7-4.0cm) IVSd: 1.10 cm (0.6-1.1cm) LVPWd: 1.10 cm (0.6-1.1cm) LVIDd: 3.70 cm (3.9-5.9cm) LVIDs: 2.30 cm LV Mass Index: 69.4 g/m2 LV % FS 37.8 % LA VOLUME: Normal Ranges: LA Vol A4C: 37.3 ml (22+/-6mL/m2) LA Vol A2C: 55.1 ml LA Vol BP: 47.4 ml LA Vol Index A4C: 20.0ml/m2 LA Vol Index A2C: 29.6 ml/m2 LA Vol Index BP: 25.4 ml/m2 LA Area A4C: 14.4 cm2 LA Area A2C: 18.3 cm2 LA [place] A4C: 4.7 cm LA [place] A2C: 5.2 cm LA Volume Index: 23.3 ml/m2 RA VOLUME BY A/L METHOD: Normal Ranges: RA Area A4C: 13.2 cm2 M-MODE MEASUREMENTS: Normal Ranges: Ao Root: 2.90 cm (2.0-3.7cm) LAs: 3.90 cm (2.7-4.0cm) AORTA MEASUREMENTS: Normal Ranges: Ao Sinus, d: 2.34 cm (2.1-3.5cm) Ao STJ, d: 2.26 cm (1.7-3.4cm) Asc Ao, d: 2.58 cm (2.1-3.4cm) LV SYSTOLIC FUNCTION BY 2D PLANIMETRY (MOD): Normal Ranges: EF-A4C View: 66.0 % (>=55%) EF-A2C View: 68.2 % EF-Biplane: 66.9 % LV DIASTOLIC FUNCTION: Normal Ranges: MV Peak E: 0.73 m/s (0.7-1.2 m/s) MV Peak A: 1.05 m/s (0.42-0.7 m/s) E/A Ratio: 0.69 (1.0-2.2) MV lateral e' 0.08 m/s MV medial e' 0.05 m/s MV A Dur: 137.00 msec E/e' Ratio: 9.00 (<8.0) PulmV Sys Flakita: 29.40 cm/s PulmV Cortes Flakita: 21.20 cm/s PulmV S/D Flakita: 1.40 PulmV A Revs Flakita: 12.10 cm/s PulmV A Revs Dur: 61.00 msec MITRAL VALVE: Normal Ranges: MV DT: 259 msec (150-240msec) AORTIC VALVE: Normal Ranges: AoV Vmax: 1.72 m/s (<=1.7m/s) AoV Peak P.8 mmHg (<20mmHg) AoV Mean P.0 mmHg (1.7-11.5mmHg) LVOT Max Flakita: 1.60 m/s (<=1.1m/s) AoV VTI: 33.80 cm (18-25cm) LVOT VTI: 31.20 cm LVOT Diameter: 1.60 cm (1.8-2.4cm) AoV Area, VTI: 1.86 cm2 (2.5-5.5cm2) AoV Area,Vmax: 1.87 cm2 (2.5-4.5cm2) AoV Dimensionless Index: 0.92 RIGHT VENTRICLE: RV 1 2.69 cm RV 2 2.18 cm RV 3 7.75 cm TAPSE: 24.6 mm TRICUSPID VALVE/RVSP: Normal Ranges: Peak TR Velocity: 1.57 m/s Est. RA Pressure: 3 mmHg RV Syst Pressure: 12.9 mmHg (< 30mmHg) IVC Diam: 1.20 cm PULMONIC VALVE: Normal Ranges: PV Accel Time: 100 msec (>120ms) PV Max Flakita: 1.1 m/s (0.6-0.9m/s) PV (more content not included)... Normal [facility] GLUCOSE-POCTon 07-05-2022 Glucose [Mass/Vol] 120 mg/dL High 74 - 99 [facility] Comment on above: Performed By: #### G YUAN #### [facility] [address] [place] [address] Glucose [Mass/Vol] 112 mg/dL High 74 - 99 [facility] Comment on above: Performed By: #### G YUAN ####[facility] [id number] [place] [address] Glucose [Mass/Vol] 122 mg/dL High 74 - 99 [facility] Comment on above: Performed By: #### G YUAN ####[facility] [id number] [place] [address] LIPID PANEL (CORONARY RISK 2 )on 07-05-2022 Cholesterol [Mass/Vol] 170 mg/dL Normal 0 - 199 [facility] Comment on above: Result Comment: . AGE DESIRABLE BORDERLINE HIGH HIGH 0-19 Y 0 - 169 170 - 199 >/= 200 20-24 Y 0 - 189 190 - 224 >/= 225 >24 Y 0 - 199 200 - 239 >/= 240 All ranges are based on fasting samples. Specific therapeutic targets will vary based on patient-specific cardiac risk. . Pediatric guidelines reference:Pediatrics 2011, 128(S5). Adult guidelines reference: NCEP ATPIII Guidelines, CELESTINE 2001, 258:2486-97 . Venipuncture immediately after or during the administration of Metamizole may lead to falsely low results. Testing should be performed immediately prior to Metamizole dosing. Performed By: #### L IPID ####[facility] [id number] [place] [address] Cholesterol in HDL [Mass/Vol] 44.5 mg/dL Normal [facility] Comment on above: Result Comment: . AGE VERY LOW LOW NORMAL HIGH 0-19 Y < 35 < 40 40-45 ---- 20-24 Y ---- < 40 >45 ---- >24 Y ---- < 40 40-60 >60 . Performed By: #### L IPID ####[facility] [id number] [place] [address] Cholesterol in LDL [Mass/Vol] 103 mg/dL High 0 - 99 [facility] Comment on above: Result Comment: . NEAR BORD AGE DESIRABLE OPTIMAL HIGH HIGH VERY HIGH 0-19 Y 0 - 109 --- 110-129 >/= 130 ---- 20-24 Y 0 - 119 --- 120-159 >/= 160 ---- >24 Y 0 - 99 100-129 130-159 160-189 >/=190 . Performed By: #### L IPID ####[facility] [id number] [place] [address] Cholesterol in VLDL [Mass/Vol] 22 mg/dL Normal 0 - 40 [facility] Comment on above: Performed By: #### L IPID ####[id number] [place] [address] Cholesterol.total/Cho lesterol in HDL [Mass ratio] 3.8 {ratio} Normal [facility] Comment on above: Result Comment: REF VALUES DESIRABLE < 3.4 HIGH RISK > 5.0 Performed By: #### L IPID ####[facility] [id number] [place] [address] Triglyceride [Mass/Vol] 111 mg/dL Normal 0 - 149 [facility] Comment on above: Result Comment: . AGE DESIRABLE BORDERLINE HIGH HIGH VERY HIGH 0 D-90 D 19 - 174 ---- ---- ---- 91 D- 9 Y 0 - 74 75 - 99 >/= 100 ---- 10-19 Y 0 - 89 90 - 129 >/= 130 ---- 20-24 Y 0 - 114 115 - 149 >/= 150 ---- >24 Y 0 - 149 150 - 199 200- 499 >/= 500 . Venipuncture immediately after or during the administration of Metamizole may lead to falsely low results. Testing should be performed immediately prior to Metamizole dosing. Performed By: #### L IPID ####[facility] [id number] [place] [address] OT Evaluation v2-individual therapyon 07-05-2022 OT Evaluation v2-individual therapy Rehab: Info: Mode of Treatmentoccupational therapy; individual therapy Time IN10:20 Time OUT10:46 Total Treatment [id number] Total Minutes Comment1 untimed eval, 8 min self care/adl tx Patient in ... at end of sessionchair; alarm off; not on at start of visit Communicated with ... at end of sessionbedside nurse; Samra aware of pt mobility level and position in chair at end of session Patient Effortexcellent Patient Profile Reviewedyes Per handoff with nursing prior to therapy visit, in the past 24 hours pt has the following acute changes in condition: (RN concerns); patients pain is under control and vitals are stable. Additional concerns for this patient related to therapy session: none. Onset of Illness/Injury or Date of [id number] Reason for Referralnew documented weakness affecting ADLs Referring PhysicianBates General Observations of Patientpt alert, pleasant, sitting up in chair at arrival, eager and agreeable to participate in therapy Pertinent History of Current Functional [id number] yo presenting with new onset of vertigo with progressing symptoms of L kelly paresis and dysarthria. 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 PMHx: h/o HTN, asthma, GERD, thyroid nodules, anxiety/depression, 07/04 p/w L weakness/FD (LKN 07/04 0130), CTH Hand Dominanceright Hearing Precautions/Limitatio nsWNL Precautions/Limitatio nsfall precautions; L kelly paresis; heavy retro lean to L and posteriorly Limitations/Impairmen tssensory; impaired motor coordination Developmental Statusindependent, age appropriate Ambulation Skills - Previous Level of Functionindependent Transfer Skills - Previous Level of Functionindependent ADL Skills - Previous Level of Functionindependent Work/Leisure Activity - Previous Level of Functionindependent; +drives manages IADLs, independent Living Arrangementshouse Lives Withadult child(piotr); spouse; with spouse, dtr, son in law, and two gtrandkids Home Accessibilitytub/show er is not walk in Type of Equipment Currently In the Homecrutches Line and Tubestelemetry Vision/Cognition: Affect/Mental Status (Cognitive)WNL Orientation Status (Cognition)oriented x 4 Cognitive Function (Cognitive)WNL Able to Follow Commands (Receptive)WNL ROM: Upper Extremity: Range of Motionright upper extremity ROM WNL MMT: Upper Extremity: Manual Muscle Testing (MMT)pt demo's lag in L shoulder shrug though able to complete full AROM triceps- AROM WNL, strength ~4/5 Biceps: 2- Shoulder abduction: 2-, gross movement patterns, unable to isolate shoulder flexion vs abduction pronation: AROM > 75% full ROM, 2+/5 Supination: 2-/5 wrist flexion-extension & digits: 0/5, no trace movements observed Mobility/Tone: Transfer Assessment/Interventi onssit to stand transfer; stand to sit transfer; toilet transfer Sit-Stand Cheshire (Transfers)moderate assist (50% patient effort); 1 person assist; nonverbal cues (demo/gesture); verbal cues Sit-Stand Assistive Device (Transfers)circumfere ntial trunk support, pt cued to grasp this therapists arm with R UE for additional support Pt does not demo ability to grasp or utilize walker, may be able to trial with platform attachment as pt demo'd good L tricep strength Stand-Sit Ches[place] (Transfers)moderate assist (50% patient effort) Stand-Sit Assistive Device (Transfers)circumfere ntial trunk support, pt cued to grasp this therapists arm with R UE for additional support Toilet Ches[place] (Transfers)moderate assist (50% patient effort); maximum assist (25% patient effort); nonverbal cues (demo/gesture); verbal cues; required max ax1 during transfer back to chair going towards left, affected, side. Demo'd overt balance loss with poor motor planning and balance Toilet Assistive Device (Transfer)circumferen tial trunk support, pt cued to grasp this therapists arm with R UE for additional support Comment, Gait/Stairs Trainingtendency to lean heavily to L hemiparetic side without awareness-- able to correct with verbal cues to lean to right with intermittent periods of cga, tendency to require at least min vs mod ax1 trunk support for static and dynamic standing balance ADL: BADL Assessment/Interventi ontoileting; anticipate inc assist for all ADls at this time due to L UE hemiparesis and gross motor and balance deficits Able to participate in all UB ADLs with setup assist Cheshire Level (Toileting)nonverbal cues (demo/gesture); verbal cues; set up; performs anterior eva care while seated on toilet Position (Toileting)sitting Comment (Toileting)anticipate max assist for posterior eva care Impairments, BADL Safety/Performancebal ance; endurance/activity tolerance; grasp/prehension; motor control; motor planning; coordination; muscle tone abnormality; strength; range of motion; sensory awareness; trunk/postural contro (more content not included)... Normal [facility] Order Reconciliationon 07-05 Order Reconciliation Page 1 Discharge Reconciliation Document Reconciliation Type: Discharge requested on behalf of Arturo Graham (Advanced Practice Nurse-Admit) done by Arturo Graham ([facility]) Discharge - Reconciliation: 05-Jul-2022 18:03 by: Arturo Graham ([facility]) Discharge - Reset to Incomplete: 06-Jul-2022 15:03 by: Arturo Graham ([facility], [facility]) Discharge - Reconciliation: 06-Jul-2022 15:04 by: Arturo Graham ([facility], [facility]) Home Medications EnteredHOME MEDICATIONS AT DISCHARGE DateReconciliation Comment/ Additional Information Breo Ellipta 100 mcg-25 mcg/inh inhalation powder 1 puff(s) inhaled once a day 04-Jul-2022 12:27 Breo Ellipta 100 mcg-25 mcg/inh inhalation powder 1 puff(s) inhaled once a day 04-Jul-2022 12:27 Breo Ellipta 100 mcg-25 mcg/inh inhalation powder is continued as Breo Ellipta 100 mcg-25 mcg/inh inhalation powder Effexor XR 75 mg oral capsule, extended release 1 cap(s) orally once a day 04-Jul-2022 08:06 Effexor XR 75 mg oral capsule, extended release 1 cap(s) orally once a day 04-Jul-2022 08:06 Effexor XR 75 mg oral capsule, extended release is continued as Effexor XR 75 mg oral capsule, extended release Metoprolol Succinate ER 25 mg oral tablet, extended release 1 tab(s) orally once a day 04-Jul-2022 08:05 Discontinued; Discontinue from ORM Metoprolol Succinate ER 25 mg oral tablet, extended release is not required quinapril 40 mg oral tablet 1 tab(s) orally once a day 04-Jul-2022 06:35 quinapril 40 mg oral tablet 1 tab(s) orally once a day 04-Jul-2022 06:35 quinapril 40 mg oral tablet is continued as quinapril 40 mg oral tablet Vitamin D3 125 mcg (5000 intl units) oral tablet 1 tab(s) orally once a day 04-Jul-2022 06:37 Vitamin D3 125 mcg (5000 intl units) oral tablet 1 tab(s) orally once a day 04-Jul-2022 06:37 Vitamin D3 125 mcg (5000 intl units) oral tablet is continued as Vitamin D3 125 mcg (5000 intl units) oral tablet Current OrdersDateHOME MEDICATIONS AT DISCHARGE DateReconciliation Comment/ Additional Information Albuterol 2.5 mg - Ipratropium 0.5 mg/ 3 mL Neb Soln (DUONEB)DOSE = 3 mL Inhalation Every 6 Hours via Nebulizer, PRN Wheezing 04-Jul-2022 17:50 ipratropium-albuterol 0.5 mg-2.5 mg/3 mL inhalation solution 3 milliliter(s) inhaled every 6 hours, As needed, Wheezing 05-Jul-2022 18:02 Albuterol 2.5 mg - Ipratropium 0.5 mg/ 3 mL Neb Soln is continued as ipratropium-albuterol 0.5 mg-2.5 mg/3 mL inhalation solution Atorvastatin Tablet (LIPITOR)DOSE = 40 mg Oral Daily 05-Jul-2022 12:27 atorvastatin 40 mg oral tablet 1 tab(s) orally once a day 05-Jul-2022 18:02 Atorvastatin is continued as atorvastatin 40 mg oral tablet Carvedilol Tablet (COREG)DOSE = 12.5 mg Oral 2 Times a Day 05-Jul-2022 13:08 Carvedilol Tablet (COREG)DOSE = 25 mg Oral 2 Times a Day 06-Jul-2022 13:02 carvedilol 25 mg oral tablet 1 tab(s) orally 2 times a day 06-Jul-2022 15:04 Carvedilol is continued as carvedilol 25 mg oral tablet Docusate Capsule (COLACE)DOSE = 100 mg Oral 2 Times a Day 04-Jul-2022 08:27 Docusate is not required hydrALAZINE (APRESOLINE) Injectable DOSE = 10 mg IntraVenous Push Every 1 Hour, PRN SBP >160 04-Jul-2022 13:41 hydrALAZINE (APRESOLINE) Injectable is not required hydrOXYzine Hydrochloride (ATARAX) TabletDOSE = 25 mg Oral Every 6 Hours, PRN anxiety 05-Jul-2022 22:10 hydrOXYzine hydrochloride 25 mg oral tablet 1 tab(s) orally every 6 hours, As needed, anxiety 06-Jul-2022 15:04 hydrOXYzine Hydrochloride (ATARAX) is continued as hydrOXYzine hydrochloride 25 mg oral tablet Lisinopril Tablet (PRINIVIL, ZESTRIL)DOSE = 40 mg Oral DailyClinician Notes: Substitution for Accupril 40 mg 04-Jul-2022 11:58 Lisinopril is not required Melatonin TabletDOSE = 3 mg Oral Daily 1800 05-Jul-2022 22:10 melatonin 3 mg oral tablet 1 tab(s) orally - Daily 1800 06-Jul-2022 15:04 Melatonin is continued as melatonin 3 mg oral tablet Venlafaxine Extended Release Capsule, Extended Release (EFFEXOR XR)DOSE = 75 mg Oral Daily 04-Jul-2022 10:53 Venlafaxine Extended Release is not required Home Medications Added During Discharge Reconciliation carvedilol 12.5 mg oral tablet 1 tab(s) orally 2 times a day - Discontinued; Discontinue from [facility] Provider Certification of Need Order Date: 05-Jul-2022 Order Priority: RoutineType of Care Recommended: Acute RehabEstimated Stay: Convalescent stay less than 30 daysPrognosis: GoodRehab Potential: ImproveCertification: I certify that inpatient care is required at the level recommended above.To the best of my knowledge, all information provided about the individual is a true and accurate reflection of the individual's condition. All Active Home Medications at time of Discharge Reconciliation: 06-Jul-2022 15:04 atorvastatin 40 mg oral tablet 1 tab(s) orally once a day Breo Ellipta 100 mcg-25 mcg/inh inhalation powder 1 puff(s) inhaled once a day (more content not included)... Normal [facility] PT Evaluation v2-individual therapyon 07-05-2022 PT Evaluation v2-individual therapy Rehab: Info: Mode of Treatmentindividual therapy; physical therapy Time IN11:19 Time OUT11:31 Patient in ... at end of sessionbed, 3 railings up; alarm on Communicated with ... at end of sessionbedside nurse Patient Effortgood Symptoms Noted During/After Treatmentfatigue Patient Profile Reviewedyes Per handoff with nursing prior to therapy visit, patients pain and vitals are stable. Additional concern for this patient related to therapy session: flaccid left UE. Onset of Illness/Injury or Date of [id number] Reason for Eyepyiqb83 year old female admitted with acute intracerebral hemorrhage and left hemiparesis. Pt referred to PT for mobility and gait evaluation and training as indicated. Referring PhysicianBates () Patient/Family/Caregi desmond Comments/Observations Pt's family in room. Pt presented to physical therapist supine in bed. RN cleared pt for therapy. Pt is pleasant and agreeable to PT. General Observations of Patientleft UE flaccidity. No apparent distress Pertinent History of Current Functional [id number] year old female admitted with acute intracerebral hemorrhage involving right basal ganglia. Pt presenting with left hemiparesis PMHx- HTN, bilat TKR, asthma, GERD, thyroid nodules, anxiety, depression, CTH Hearing Precautions/Limitatio nsWFL Precautions/Limitatio nsfall precautions; left hemiparesis, heavy retro lean to left and posterior in standing Limitations/Impairmen tsendurance Developmental Statusindependent, age appropriate Ambulation Skills - Previous Level of Functionindependent Transfer Skills - Previous Level of Functionindependent ADL Skills - Previous Level of Functionindependent Work/Leisure Activity - Previous Level of Functionindependent Living Arrangementshouse Lives Withhusband, daughter and 2 grandchildren Home Accessibilitystairs to enter home; stairs w/i home; 3 stairs to enter home with rail on left side as going in Number of Stairs to Enter Home3 Number of Stairs Within Home0 Type of Equipment Currently In the Homestraight cane Vision/Cognition: Affect/Mental Status (Cognitive)WNL Orientation Status (Cognition)oriented x 4 ROM: Lower Extremity: Range of Motionleft lower extremity ROM WNL; right lower extremity ROM WNL MMT: Lower Extremity: Manual Muscle Testing (MMT)left lower extremity strength WFL; right lower extremity strength WFL Mobility/Tone: Bed Mobility Assessment/Interventi onssit to supine Dgw-ti-Stazti Cheshire (Bed Mobility)moderate assist (50% patient effort); 1 person assist Assistive Device (Bed Mobility)bed rails Transfer Assessment/Interventi onssit to stand transfer; stand to sit transfer Sit-Stand [place] (Transfers)moderate assist (50% patient effort); 2 person assist; verbal cues Sit-Stand Assistive Device (Transfers)gait belt Stand-Sit [place] (Transfers)moderate assist (50% patient effort); 2 person assist; verbal cues Stand-Sit Assistive Device (Transfers)gait belt Gait/Stairs Locomotiongait/ambula tion independence; gait/ambulation assistive device; distance ambulated Gait Locomotion (Gait)moderate assist (50% patient effort); 2 person assist; verbal cues Assistive Device (Gait Training)gait belt Distance in Feet (Gait Training)3 feet from bed to chair. Left LE motor control deficit in standing. Difficulty with WB on left LE alone to take step with right LE. No knee buckling noted Impairments Impacting Function (Mobility)strength; motor control; endurance/activity tolerance; balance Motor: Sitting, Static (Balance)good balance Sitting, Dynamic (Balance)good balance Uup-id-Sanqk (Balance)fair balance Standing, Static (Balance)poor balance Standing, Dynamic (Balance)poor balance Sensory: Pre-Treatment Pain Rating0/10 - no pain Post-Treatment Pain Rating0/10 - no pain Comment, Pre/Post Treatment PainNo complaints of pain Health: Observed Emotional Statecooperative; calm Verbalized Emotional Stateacceptance Plan of Care Reviewed Withpatient; family Impression: Criteria for Skilled Therapeutic Interventions Met (PT Eval)yes; treatment indicated PT [id number] year old female admitted with intracerebral hemorrhage and left hemiparesis. Pt requiring mod assist for all mobility at this time. Physical Therapy PrognosisGood Functional Level at Time of Evaluation (PT Eval)Pt presents with impaired mobility Patient/Family Goals Statement (PT Eval)None stated System Pathology/Pathophysio logy Noted (PT Eval)musculoskeletal Impairments Found (PT Eval)gait, locomotion, and balance Functional Limitations in Following Categoriesself-care; home management; community/leisure; mobility/gait; stairs Disability: Inability to Perform Actions/Activities of Required Roles community/leisure Assessment (PT Eval)PT Evaluation Completed. The patient presents today with impaired mobility, and required mod assist for bed mobility, transfers and amb (more content not included)... Normal [facility] APTTon 07-04-2022 aPTT Coag (Bld) [Time] 33 s Normal 26 - 39 [facility] Comment on above: Result Comment: THE APTT IS NO LONGER USED FOR MONITORING UNFRACTIONATED HEPARIN THERAPY. FOR MONITORING HEPARIN THERAPY, USE THE HEPARIN ASSAY. Performed By: #### A PTT #### [facility] [address] [place] [address] CBC AND DIFFERENTIALon 07-04 % AUTOMATED IMMATURE GRAN 0.2 % Normal 0.0 - 0.9 [facility] Comment on above: Result Comment: Brenda ture Granulocyte Count (IG) includes promyelocytes, myelocytes and metamyelocytes but does not include bands. Percent differential counts (%) should be interpreted in the context of the absolute cell counts (cells/L). Performed By: #### G YUAN #### [facility] [address] [place] [address] Basophils (Bld) [#/Vol] 0.04 10*3/uL Normal 0.00 - 0.10 [facility] Comment on above: Performed By: #### G YUAN #### [facility] [address] [place] [address] Basophils/100 WBC (Bld) 0.5 % Normal 0.0 - 2.0 [facility] Comment on above: Performed By: #### G YUAN #### [facility] [address] [place] [address] Eosinophils (Bld) [#/Vol] 0.02 10*3/uL Normal 0.00 - 0.40 [facility] Comment on above: Performed By: #### G YUAN #### [facility] [address] [place] [address] Eosinophils/100 WBC (Bld) 0.2 % Normal 0.0 - 6.0 [facility] Comment on above: Performed By: #### G YUAN #### [facility] [address] [place] [address] Erythrocyte distribution width (RBC) [Ratio] 12.4 % Normal 11.5 - 14.5 [facility] Comment on above: Performed By: #### G YUAN #### [facility] [address] [place] [address] Hematocrit (Bld) [Volume fraction] 39.2 % Normal 36.0 - 46.0 [facility] Comment on above: Performed By: #### G YUAN #### [facility] [address] [place] [address] Hemoglobin (Bld) [Mass/Vol] 12.9 g/dL Normal 12.0 - 16.0 [facility] Comment on above: Performed By: #### G YUAN #### [facility] [address] [place] [address] Lymphocytes (Bld) [#/Vol] 1.29 10*3/uL Normal 0.80 - 3.00 [facility] Comment on above: Performed By: #### G YUAN #### [facility] [address] [place] [address] Lymphocytes/100 WBC (Bld) 16.0 % Normal 13.0 - 44.0 [facility] Comment on above: Performed By: #### G YUAN #### [facility] [address] [place] [address] MCHC (RBC) [Mass/Vol] 32.9 g/dL Normal 32.0 - 36.0 [facility] Comment on above: Performed By: #### G YUAN #### [facility] [address] [place] [address] MCV (RBC) [Entitic vol] 91 fL Normal 80 - 100 [facility] Comment on above: Performed By: #### G YUAN #### [facility] [address] [place] [address] Monocytes (Bld) [#/Vol] 0.43 10*3/uL Normal 0.05 - 0.80 [facility] Comment on above: Performed By: #### G YUAN #### [facility] [address] [place] [address] Monocytes/100 WBC (Bld) 5.3 % Normal 2.0 - 10.0 [facility] Comment on above: Performed By: #### G YUAN #### [facility] [address] [place] [address] Neutrophils (Bld) [#/Vol] 6.24 10*3/uL High 1.60 - 5.50 [facility] Comment on above: Performed By: #### Lex YUAN #### [facility] [address] [place] [address] Neutrophils/100 WBC (Bld) 77.8 % Normal 40.0 - 80.0 [facility] Comment on above: Performed By: #### G YUAN #### [facility] [address] [place] [address] Platelets (Bld) [#/Vol] 275 10*3/uL Normal 150 - 450 [facility] Comment on above: Performed By: #### Lex YUAN #### [facility] [address] [place] [address] RBC 4.32 x10E12/L Normal 4.00 - 5.20 [facility] Comment on above: Performed By: #### Lex YUAN #### [facility] [address] [place] [address] WBC (Bld) [#/Vol] 8.0 10*3/uL Normal 4.4 - 11.3 [facility] Comment on above: Performed By: #### Lex YUAN #### [facility] [address] [place] [address] % AUTOMATED IMMATURE GRAN 0.3 % Normal 0.0 - 0.9 [facility] Comment on above: Result Comment: Brenda ture Granulocyte Count (IG) includes promyelocytes, myelocytes and metamyelocytes but does not include bands. Percent differential counts (%) should be interpreted in the context of the absolute cell counts (cells/L). Performed By: #### C BCDF ####[address] [address] Basophils (Bld) [#/Vol] 0.06 10*3/uL Normal 0.00 - 0.10 [facility] Comment on above: Performed By: #### C BCDF ####[address] [address] Basophils/100 WBC (Bld) 0.8 % Normal 0.0 - 2.0 [facility] Comment on above: Performed By: #### C BCDF ####[address] [address] Eosinophils (Bld) [#/Vol] 0.44 10*3/uL High 0.00 - 0.40 [facility] Comment on above: Performed By: #### C BCDF ####[address] [address] Eosinophils/100 WBC (Bld) 5.5 % Normal 0.0 - 6.0 [facility] Comment on above: Performed By: #### C BCDF ####[address] [address] Erythrocyte distribution width (RBC) [Ratio] 12.2 % Normal 11.5 - 14.5 [facility] Comment on above: Performed By: #### C BCDF ####[address] [address] Hematocrit (Bld) [Volume fraction] 41.2 % Normal 36.0 - 46.0 [facility] Comment on above: Performed By: #### C BCDF ####[address] [address] Hemoglobin (Bld) [Mass/Vol] 13.4 g/dL Normal 12.0 - 16.0 [facility] Comment on above: Performed By: #### C BCDF ####[address] [address] Lymphocytes (Bld) [#/Vol] 2.50 10*3/uL Normal 0.80 - 3.00 [facility] Comment on above: Performed By: #### C BCDF ####[address] [address] Lymphocytes/100 WBC (Bld) 31.4 % Normal 13.0 - 44.0 [facility] Comment on above: Performed By: #### C BCDF ####[address] [address] MCHC (RBC) [Mass/Vol] 32.5 g/dL Normal 32.0 - 36.0 [facility] Comment on above: Performed By: #### C BCDF ####[address] [address] MCV (RBC) [Entitic vol] 92 fL Normal 80 - 100 [facility] Comment on above: Performed By: #### C BCDF ####[address] [address] Monocytes (Bld) [#/Vol] 0.76 10*3/uL Normal 0.05 - 0.80 [facility] Comment on above: Performed By: #### C BCDF ####[address] [address] Monocytes/100 WBC (Bld) 9.5 % Normal 2.0 - 10.0 [facility] Comment on above: Performed By: #### C BCDF ####[address] [address] Neutrophils (Bld) [#/Vol] 4.18 10*3/uL Normal 1.60 - 5.50 [facility] Comment on above: Result Comment: Perc ent differential counts (%) should be interpreted in the context of the absolute cell counts (cells/L). Performed By: #### C BCDF ####[address] [address] Neutrophils/100 WBC (Bld) 52.5 % Normal 40.0 - 80.0 [facility] Comment on above: Performed By: #### C BCDF ####[address] [address] Platelets (Bld) [#/Vol] 274 10*3/uL Normal 150 - 450 [facility] Comment on above: Performed By: #### C BCDF ####[address] [address] RBC 4.50 x10E12/L Normal 4.00 - 5.20 [facility] Comment on above: Performed By: #### C BCDF ####[address] [address] WBC (Bld) [#/Vol] 8.0 10*3/uL Normal 4.4 - 11.3 [facility] Comment on above: Performed By: #### C BCDF ####[facility] [place] [address] CHEST 1 VIEWon 07-04-2022 CHEST 1 VIEW Patient Name: YANELI BASURTO STUDY: CHEST 1 VIEW; 07/04/2022 5:39 am INDICATION: Hemorrhagic stroke. . COMPARISON: None. ACCESSION NUMBER(S): [id number] ORDERING CLINICIAN: ALIE UMANZOR FINDINGS: CARDIOMEDIASTINAL SILHOUETTE: Cardiomediastinal silhouette is normal in size and configuration. LUNGS: No pulmonary consolidation, pleural effusion or pneumothorax. ABDOMEN: No remarkable upper abdominal findings. BONES: No acute osseous abnormality. IMPRESSION: No acute cardiopulmonary process. Electronically signed by: ALECIA SHOEMAKER MD Normal [facility] COAGULATION SCREENon 022 aPTT Coag (Bld) [Time] 33 s Normal 26 - 39 [facility] Comment on above: Result Comment: THE APTT IS NO LONGER USED FOR MONITORING UNFRACTIONATED HEPARIN THERAPY. FOR MONITORING HEPARIN THERAPY, USE THE HEPARIN ASSAY. Performed By: #### C OAGS ####[facility] [id number] [place] [address] PT Coag (PPP) [Time] 12.3 s Normal 9.8 - 13.4 [facility] Comment on above: Performed By: #### C OAGS ####[facility] [id number] [place] [address] PT, INR 1.1 Normal 0.9 - 1.1 [facility] Comment on above: Performed By: #### C OAGS ####[facility] [id number] [place] [address] COMPREHENSIVE PANELon 2021 Albumin [Mass/Vol] 3.9 g/dL Normal 3.4 - 5.0 [facility] Comment on above: Performed By: #### C MP ####[facility] [id number] [place] [address] ALP [Catalytic activity/Vol] 92 U/L Normal 33 - 136 [facility] Comment on above: Performed By: #### C MP ####[facility] [id number] [place] [address] ALT [Catalytic activity/Vol] 22 U/L Normal 7 - 45 [facility] Comment on above: Result Comment: Yesenia ents treated with Sulfasalazine may generate falsely decreased results for ALT. Performed By: #### C MP ####[facility] [id number] [place] [address] Anion gap [Moles/Vol] 12 mmol/L Normal 10 - 20 [facility] Comment on above: Performed By: #### C MP ####[facility] [id number] [place] [address] AST [Catalytic activity/Vol] 19 U/L Normal 9 - 39 [facility] Comment on above: Performed By: #### C MP ####[facility] [id number] [place] [address] Bilirubin [Mass/Vol] 0.4 mg/dL Normal 0.0 - 1.2 [facility] Comment on above: Performed By: #### C MP ####[facility] [id number] [place] [address] Calcium [Mass/Vol] 10.1 mg/dL Normal 8.6 - 10.3 [facility] Comment on above: Performed By: #### C MP ####[facility] [id number] [place] [address] Chloride [Moles/Vol] 102 mmol/L Normal 98 - 107 [facility] Comment on above: Performed By: #### C MP ####[facility] [id number] [place] [address] Creatinine [Mass/Vol] 0.92 mg/dL Normal 0.50 - 1.05 [facility] Comment on above: Performed By: #### C MP ####[facility] [id number] [place] [address] GFR/1.73 sq M.predicted among non-blacks MDRD (S/P/Bld) [Vol rate/Area] 66 mL/min/{1.73_m2} Normal >90 [facility] Comment on above: Result Comment: CALC ULATIONS OF ESTIMATED GFR ARE PERFORMED USING THE 2020 CKD-EPI STUDY REFIT EQUATION WITHOUT THE RACE VARIABLE FOR THE IDMS-TRACEABLE CREATININE METHODS. https://jasn.asnjournals.org/content/early//ASN.908482 5161 Performed By: #### C MP ####[facility] [id number] [place] [address] Glucose [Mass/Vol] 120 mg/dL High 74 - 99 [facility] Comment on above: Performed By: #### C MP ####[facility] [id number] [place] [address] HCO3 (Bld) [Moles/Vol] 27 mmol/L Normal 21 - 32 [facility] Comment on above: Performed By: #### C MP ####[facility] [id number] [place] [address] Potassium [Moles/Vol] 4.8 mmol/L Normal 3.5 - 5.3 [facility] Comment on above: Performed By: #### C MP ####[facility] [id number] [place] [address] Protein [Mass/Vol] 6.7 g/dL Normal 6.4 - 8.2 [facility] Comment on above: Performed By: #### C MP ####[facility] [id number] [place] [address] Sodium [Moles/Vol] 136 mmol/L Normal 136 - 145 [facility] Comment on above: Performed By: #### C MP ####[facility] [id number] [place] [address] Urea nitrogen [Mass/Vol] 20 mg/dL Normal 6 - 23 [facility] Comment on above: Performed By: #### C MP ####[facility] [id number] [place] [address] Albumin [Mass/Vol] 4.1 g/dL Normal 3.4 - 5.0 [facility] Comment on above: Performed By: #### C MP #### [address] [address] ALP [Catalytic activity/Vol] 95 U/L Normal 33 - 136 [facility] Comment on above: Performed By: #### C MP #### [address] [address] ALT [Catalytic activity/Vol] 23 U/L Normal 7 - 45 [facility] Comment on above: Result Comment: Yesenia ents treated with Sulfasalazine may generate falsely decreased results for ALT. Performed By: #### C MP #### [address] [address] Anion gap [Moles/Vol] 12 mmol/L Normal 10 - 20 [facility] Comment on above: Performed By: #### C MP #### [address] [address] AST [Catalytic activity/Vol] 20 U/L Normal 9 - 39 [facility] Comment on above: Performed By: #### C MP #### [address] [address] Bilirubin [Mass/Vol] 0.5 mg/dL Normal 0.0 - 1.2 [facility] Comment on above: Performed By: #### C MP #### [address] [address] Calcium [Mass/Vol] 10.5 mg/dL High 8.6 - 10.3 [facility] Comment on above: Performed By: #### C MP #### [address] [address] Chloride [Moles/Vol] 102 mmol/L Normal 98 - 107 [facility] Comment on above: Performed By: #### C MP #### [address] [address] Creatinine [Mass/Vol] 0.97 mg/dL Normal 0.50 - 1.05 [facility] Comment on above: Performed By: #### C MP #### [address] [address] GFR/1.73 sq M.predicted among non-blacks MDRD (S/P/Bld) [Vol rate/Area] 62 mL/min/{1.73_m2} Normal >90 [facility] Comment on above: Result Comment: CALC ULATIONS OF ESTIMATED GFR ARE PERFORMED USING THE 2020 CKD-EPI STUDY REFIT EQUATION WITHOUT THE RACE VARIABLE FOR THE IDMS-TRACEABLE CREATININE METHODS. https://jasn.asnjournals.org/content/early//ASN.874045 3234 Performed By: #### C MP #### [address] [address] Glucose [Mass/Vol] 127 mg/dL High 74 - 99 [facility] Comment on above: Performed By: #### C MP #### [address] [address] HCO3 (Bld) [Moles/Vol] 26 mmol/L Normal 21 - 32 [facility] Comment on above: Performed By: #### C MP #### [address] [address] Potassium [Moles/Vol] 4.3 mmol/L Normal 3.5 - 5.3 [facility] Comment on above: Performed By: #### C MP #### [address] [address] Protein [Mass/Vol] 7.2 g/dL Normal 6.4 - 8.2 [facility] Comment on above: Performed By: #### C MP #### [address] [address] Sodium [Moles/Vol] 136 mmol/L Normal 136 - 145 [facility] Comment on above: Performed By: #### C MP #### [address] [address] Urea nitrogen [Mass/Vol] 21 mg/dL Normal 6 - 23 [facility] Comment on above: Performed By: #### C MP #### [address] [address] [address] BRAIN ATTACK HEAD WO CONT RICKYJan 07-04-2022 CT BRAIN ATTACK HEAD WO CONTRAST Patient Name: YANELI BASURTO STUDY: NR CT BRAIN ATTACK HEAD WO CONTRAST; 07/04/2022 5:32 am INDICATION: Left arm weakness, left facial droop . COMPARISON: None. ACCESSION NUMBER(S): [id number] ORDERING CLINICIAN: ALIE UMANZOR TECHNIQUE: Axial noncontrast CT images of the head. FINDINGS: BRAIN PARENCHYMA: Farris-white matter interfaces are preserved. No mass effect or midline shift. Mild deep and periventricular white matter hypodensities are nonspecific, but favored to represent chronic small vessel ischemic changes. HEMORRHAGE: 1.5 x 1.5 x 2.5 cm acute intracranial hemorrhage centered in the right lentiform nucleus. Mild surrounding vasogenic edema. VENTRICLES and EXTRA-AXIAL SPACES: The ventricles and sulci are within normal limits in size for brain volume. No abnormal extraaxial fluid collection. EXTRACRANIAL SOFT TISSUES: Within normal limits. PARANASAL SINUSES/MASTOIDS: The visualized paranasal sinuses and mastoid air cells are aerated. CALVARIUM: No depressed skull fracture. No destructive osseous lesion. OTHER FINDINGS: None. IMPRESSION: 1.5 x 1.5 x 2.5 cm acute intracranial hemorrhage centered in the right lentiform nucleus. No significant mass effect or midline shift. Document Only: The critical information above was relayed directly by me by telephone to ALIE UMANZOR on 07/04/2022 at 5:44 am with readback verification. Electronically signed by: ALECIA SHOEMAKER MD [facility] CT HEAD WO CONTRASTon 2021 CT HEAD WO CONTRAST Patient Name: YANELI BASURTO STUDY: CT HEAD WO CONTRAST; 07/04/2022 11:35 am INDICATION: ICH . COMPARISON: 5:14 a.m. the same day ACCESSION NUMBER(S): [id number] ORDERING CLINICIAN: RICHARD MELO TECHNIQUE: Unenhanced CT images of the head were obtained. FINDINGS: 19 x 15 by 28 mm acute hemorrhage in the right basal ganglia/bolaños radiata is slightly more dense but similar in size to the previous exam. Minimal surrounding white matter edema again seen. No significant midline shift. No new acute intracranial hemorrhage. The ventricular system is nondilated. No extra-axial fluid collection. No focal calvarial lesion. The visualized paranasal sinuses are clear. IMPRESSION: No significant change in 28 mm acute hemorrhage in the right basal ganglia since 5:14 a.m. the same day. Electronically signed by: AMI HOWELL MD Normal [facility] Consult - Neuro-Surgeryon Consult - Neuro-Surgery Service: Service: Service: Surgery Consult: Consult requested by (Attending Name): Richard Melo Reason: ICH History of Present Illness: History Present Illness: HPI: 71F h/o HTN, asthma, GERD, thyroid nodules, anxiety/depression, 07/04 p/w L weakness/FD (LKN 07/04 0130), CTH as below for which patient transferred to [facility] and neurosurgery consulted. Imaging was personally reviewed and demonstrates the following: CTH 1.5cm x 1.5cm x 2.5cm R basal ganglia ICH, rCTH stable. There is some minimal brain compression/surroundi ng edema that is clinically significant as evidence by weakness as above. Past medical history: as above Past surgical history: as in chart Home medications: reviewed and as listed in electronic health record Allergies: reviewed and as listed in electronic health record Social history: no tobacco, no alcohol use, no drug use Family history: Not pertinent to current presentation Allergies: No Known Allergies: Objective: Objective Information: T PRBPMAPSpO2 [id number]/7189 93% Date/Time07/05 4: 8: 8: 4: 4: 4:00 Range(36.1C - 36.6C ) (61 - 88 ) (11 - 22 ) (116 - 158 )/ (49 - 75 ) (65 - 93 ) (92% - 97% ) Physical Exam by System: Constitutional: Well-appearing Head/Neck: atraumatic appearing Respiratory/Thorax: symmetric chest rise Cardiovascular: good distal pulses Neurological: left facial droop, moderate dysarthria Ox3, appropriate speech R 5/5 diffusely LUE prox 2, dist 0 LLE 5/5 SILT Psychological: appropriate affect Skin: well-perfused Intracerebral Hemorrhage Score: Garwood Coma Scale: 13 - 15 Intracerebral Hemorrhage Volume: less than 30 ml Intraventricular Hemorrhage: no Infratentorial Hemorrhage: no Age: less than 80 years ICH Total Score: 0 ICH Date/Time: 04-Jul-2022 12:04 Assessment/Recommenda tions: Assessment: 71F h/o HTN, asthma, GERD, thyroid nodules, anxiety/depression, 07/04 p/w L weakness/FD (LKN 07/04 0130), CTH 1.5cm x 1.5cm x 2.5cm R basal ganglia ICH, rCTH stable. RECS ICU care SBP<160 (cont home meds, cardene gtt if needed, otherwise hydralazine/labetalol pushes PRN) no further imaging needed stroke neurology recs ensure any coagulopathies are correct replete electrolytes per ICU protocol mIVF for goal euvolemia home meds as appropriate SCDs, okay for DVT chemoppx post-bleed day 2 will sign-off of inpatient care; should follow-up with stroke neurology as needed Consult Status: Consult Order ID: [id number] Attestation: Note Completion: I am a: Resident/Fellow Attending AttestationI saw and evaluated the patient. I personally obtained the diana and critical portions of the history and physical exam or was physically present for diana and critical portions performed by the resident/fellow. I reviewed the resident/fellows documentation and discussed the patient with the resident/fellow. I agree with the resident/fellows medical decision making as documented in the note. I personally evaluated the patient [id number] Electronic Signatures: Angela Al) (Signed 05-Jul-2022 11:51) Authored: Note Completion Co-Signer: Service, History of Present Illness, Allergies, Objective, ICH Score, Assessment/Recommenda tions, Note Completion Mickey Pittman (Resident)) (Signed 05-Jul-2022 08:30) Authored: Service, History of Present Illness, Allergies, Objective, ICH Score, Assessment/Recommenda tions, Note Completion Last Updated: 05-Jul-2022 11:51 by Angela Al) Normal [facility] Covid 19 Resultson 2 SARS-CoV-2 (COVID-19) RNA CHEN+probe Ql (Unsp spec) NEGATIVE COVID-19 Test Coronaviruses are common world-wide and are the cause of many common colds. SARS-COV2 is a new coronavirus that began circulating worldwide in 2019 so we are calling it COVID-19. It has been estimated that four out of five patients with COVID-19 will recover at home without the need for medical attention. Symptoms of COVID-19 may include cough, fever, shortness of breath, loss of taste or smell and other flu-like symptoms including chills, sore muscles, sore throat, and headache. Severe illness is more common in older people and people with other health problems such as high blood pressure, obesity, and immune system problems. If the test is positive, you have COVID-19. You will be contacted by the ordering physicians office and instructed to remain on home isolation, in accordance with CDC guidelines. You may also be contacted by the [facility] to see if any of your close contacts may have been exposed to the virus and need to quarantine. If the test is negative, you likely do not have COVID-19 at this time, but you still may have a different illness that can spread to other people (like Influenza, or the Flu) and could still be at risk for getting COVID-19. We recommend that you stay away from other people to limit the spread of illness until your symptoms are improving and you are fever-free for 24 hours without the use of fever lowering medications such as acetaminophen or ibuprofen. No test is 100% accurate so if you are still concerned you may have COVID-19, talk to your doctor about the need to continue to stay away from others. Medicines Unless your provider told you not to use the following: Acetaminophen (Tylenol and others) is generally safe. Anti-inflammatory medications, such as Ibuprofen (Advil or Motrin) or Naproxen (Aleve) can also be used. Uhix-aom-qycehcm cough and cold medicines can be used according to the instructions on the package. Some cjrc-ksm-afayxql medicines also contain acetaminophen. Make sure you are not taking more than your recommended dose. For those not hospitalized, there is no specific treatment available for this illness. Antibiotics do not treat Coronaviruses. Follow-Up Follow up with your doctor by scheduling a virtual visit or consider follow-up at one of our urgent care fever clinics. If you are having difficulty breathing, or are very weak and having difficulty standing, this is a medical emergency. Call 911 or have someone take you to the nearest emergency room immediately. If possible, wear a facemask. Additional guidance from the CDC for patients who tested POSITIVE for COVID-19 How to isolate: Isolate yourself in a specific room at home and limit your contact with others. Use a separate bathroom from other members of the household, when possible. Leave home only to get essential medical care. Do not go to work, school or public areas. Avoid using public transportation, ride-sharing, or taxis. Restrict contact with pets and other animals. If you must care for your pet or be around animals while you are sick, wash your hands before and after your interaction and wear a facemask. Make sure that shared spaces in the home have good airflow, such as by an air conditioner or an opened window, weather permitting. Personal Hygiene Procedures: Wear a face mask when in the same room as other people or pets. If a face mask interferes with your breathing, others should wear a mask when sharing space with you. Frequent hand-washing: wash your hands with soap and water for at least 20 seconds. If soap and water are not available, use alcohol-based hand cushion worker. Avoid touching your eyes, nose, and mouth with unwashed hands. Household Hygiene Procedures: Avoid sharing personal household items such as dishes, glassware, cups, eating utensils, towels or bedding with other people or pets in your home. After use, these items should be washed with soap and hot water. Disinfect all high-touch surfaces every day with antibacterial cleaning solutions such as Lysol wipes, bleach, cleansers, etc. High-touch surfaces include tabletops, doorknobs, bathroom fixtures, toilets, phones, keyboards, tablets and bedside tables. Immediately clean any surfaces that may have blood, poop or body fluids on them, using antibacterial cleaning solutions such as Lysol wipes, bleach, cleansers, etc. If clothing or bedding come into contact with blood, poop or body fluids, they should be washed immediately. Follow the directions on the laundry detergent and clothing labels but hot water is recommended when possible. Stopping home isolation precautions: If possible, consult your doctor before stopping home isolation precautions. According to the CDC, you can discontinue home isolation precautions when you have met both of these criteria: Your fever and respiratory symptoms have been gone for 24 billie (more content not included)... Normal [facility] Daily Progress Note-General Internal Medicineon 07-04-2022 Daily Progress Note-General Internal Medicine Service: General Internal Medicine Subjective Data: YANELI BASURTO is a 71 year old Female who is Hospital Day # 1. Patient transferred out of ICU to medical service. 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 Seen by neurosurgery and no surgical intervention recommended. Patient hemodynamically stable and blood pressures are around 150 to 160 mmHg. She is comfortable and has no new complaints. Objective Data: Objective Information: T PRBPMAPSpO2 Value36.13218769/7593 95% Date/Time07/04 12: 14: 14: 14: 14: 14:00 Range(36.1C - 36.6C ) (64 - 80 ) (14 - 18 ) (116 - 158 )/ (49 - 75 ) (65 - 93 ) (92% - 96% ) Pain reported at 07/04 12:00: 0 = None Physical Exam by System: Constitutional: Awake and alert, comfortable, cooperative, afebrile Eyes: PERRL, EOMI, clear sclera ENMT: mucous membranes moist, no apparent injury, no lesions seen Head/Neck: Neck supple, no apparent injury, thyroid without mass or tenderness, No JVD, trachea midline, no bruits Respiratory/Thorax: Patent airways, CTAB, normal breath sounds with good chest expansion, thorax symmetric Cardiovascular: Rate and rhythm is regular, normal S1-S2, no gallop or pericardial rub, 1/6 systolic ejection murmur left sternal border, no CHF. Gastrointestinal: Nondistended, soft, non-tender, no rebound tenderness or guarding, no masses palpable, no organomegaly, +BS, no bruits Genitourinary: Not examined Musculoskeletal: Remote bilateral total knee replacement. Extremities: normal extremities, no cyanosis edema, contusions or wounds, no clubbing Neurological: Awake and alert, dysarthria, left facial droop, flaccid left upper arm. Power decreased in left lower extremity 3/5. No sensory impairment, tendon reflexes are brisk in the lower extremities and extensor plantar on the left. Gait was not tested. Breast: Not examined Lymphatic: No significant lymphadenopathy Psychological: Appropriate mood and behavior Skin: Warm and dry, no lesions, no rashes Medication: Medications: Continuous Medications No continuous medications are active Scheduled Medications 1. Carvedilol: 6.25 mg Oral Once 2. Docusate: 100 mg Oral 2 Times a Day PRN Medications 1. hydrALAZINE (APRESOLINE) Injectable: 10 mg IntraVenous Push Every 1 Hour Conditional Medication Orders 1. Perflutren Lipid Microsphere (Activated) 1.3 mL / NaCL 0.9% T.V. 10 mL Injectable: 0.5 mL IntraVenous Push Once Recent Lab Results: Results: I have reviewed these laboratory results: Glucose_POCT Trending View [id number] 11:47:00 04-Jul-2022 05:36:00 [id number] H 135 H Coagulation Screen 04-Jul-2022 11:07:00 ResultValue Prothrombin Time, Plasma 12.3 International Normalized Ratio, Plasma 1.1 Activated Partial Thromboplastin Time 33 Complete Blood Count + Differential Trending View [id number] 11:07:00 04-Jul-2022 04:57:00 White Blood Cell Count8.0 8.0 Red Blood Cell Count4.32 4.50 HGB12.9 13.4 HCT39.2 41.2 MCV91 92 MCHC32.9 32.5 KWB150 274 RDW-CV12.4 12.2 Neutrophil %77.8 52.5 Immature Granulocytes %0.2 0.3 Lymphocyte %16.0 31.4 Monocyte %5.3 9.5 Eosinophil %0.2 5.5 Basophil %0.5 0.8 Neutrophil Count6.24 H 4.18 Lymphocyte Count1.29 2.50 Monocyte Count0.43 0.76 Eosinophil Count0.02 0.44 H Basophil Count0.04 0.06 Comprehensive Metabolic Panel Trending View [id number] 11:07:00 04-Jul-2022 04:57:00 Glucose, [id number] H 127 H NA136 136 K4.8 4.3 CL102 102 Bicarbonate, Serum27 26 Anion Gap, Serum12 12 BUN20 21 CREAT0.92 0.97 GFR Ssrqci28 62 Calcium, Serum10.1 10.5 H ALB3.9 4.1 ALKP92 95 T Pro6.7 7.2 T Bili0.4 0.5 Alanine Aminotransferase, Serum22 23 Aspartate Transaminase, Serum19 20 Magnesium, Serum 04-Jul-2022 11:07:00 ResultValue Magnesium, Serum 1.80 Phosphorus, Serum 04-Jul-2022 11:07:00 ResultValue Phosphorus, Serum 4.0 Influenza A/B,Covid 2019 PCR,Symptomatic 04-Jul-2022 05:42:00 ResultValue Fluid Source Nasal, Nasopharyngeal Influenza A PCR NOT DETECTED Reference Range: Not Detected Respiratory virus testing is performed routinely by PCR for Influenza A/B and RSV. Not Detected results do not preclude Influenza A/B or RSV infections since the adequacy of sample collection or lo Influenza B PCR NOT DETECTED Reference Range: Not Detected Respiratory virus testing is performed routinely by PCR for Influenza A/B and RSV. Not Detected results do not preclude Influenza A/B or RSV infections since the adequacy of sample collection or lo Coronavirus 2019,PCR NOT DETECTED Reference Range: No (more content not included)... Normal [facility] GLUCOSE-POCTon 07-04-2022 Glucose [Mass/Vol] 112 mg/dL High 74 - 99 [facility] Comment on above: Performed By: #### G YUAN #### [facility] [address] [place] [address] Glucose [Mass/Vol] 132 mg/dL High 74 - 99 [facility] Comment on above: Performed By: #### G YUAN #### [facility] [address] [place] [address] Glucose [Mass/Vol] 135 mg/dL High 74 - 99 [facility] Comment on above: Performed By: #### G YUAN ####[address] [place] [address] INFLUENZA A/B, COVID 2019 PC R,SYMPTOMATICon 07-04-2022 INFLUENZA A, PCR Not detected Normal Not Detected [facility] Comment on above: Result Comment: Resp iratory virus testing is performed routinely by PCR for Influenza A/B and RSV. Not Detected results do not preclude Influenza A/B or RSV infections since the adequacy of sample collection or low viral burden may impact the clinical sensitivity of this test method. Performed By: #### C OINP #### [place] [address] INFLUENZA B, PCR Not detected Normal Not Detected [facility] Comment on above: Result Comment: Resp iratory virus testing is performed routinely by PCR for Influenza A/B and RSV. Not Detected results do not preclude Influenza A/B or RSV infections since the adequacy of sample collection or low viral burden may impact the clinical sensitivity of this test method. Performed By: #### C OINP #### [place] [address] SARS-CoV-2 (COVID-19) RNA CHEN+probe Ql (Unsp spec) Not detected Normal Not Detected [facility] Comment on above: Result Comment: . This test has received FDA Emergency Use Authorization (EUA) and has been verified by [facility]. This test is only authorized for the duration of time that circumstances exist to justify the authorization of the emergency use of in vitro diagnostic tests for the detection of SARS-CoV-2 virus and/or diagnosis of COVID-19 infection under section 564(b)(1) of the Act, 21 U.S.C. 360bbb-3(b)(1), unless the authorization is terminated or revoked sooner. [facility] is certified under CLIA-88 as qualified to perform high complexity testing. Testing is performed in the [facility] laboratory located at [address] [place] [address]. SARS-CoV-2/Flu/RSV Multiplex Test: Fact sheet for providers: https://www.fda.gov/media/304906/download Fact sheet for patients: https://www.fda.gov/media/375310/download Performed By: #### C OINP #### [place] [address] Lab Specimen Source Nasal, Nasopharyngeal Normal [facility] Comment on above: Performed By: #### C OINP #### [facility] [address] [place] [address] MAGNESIUMon 07-04-2022 Magnesium [Mass/Vol] 1.80 mg/dL Normal 1.60 - 2.40 [facility] Comment on above: Performed By: #### M G ####[facility] [id number] [place] [address] Order Reconciliationon 07-04 Order Reconciliation Page 1 Admission Reconciliation Document Reconciliation Type: Admission from ED requested on behalf of Richard Melo (Physician) done by Richard Melo) Admission from ED - Reconciliation: 04-Jul-2022 10:53 by: Richard Melo) Home MedicationsEnteredLas t Dose TakenReconciled with current Order Reconciliation Comment/ Additional Information Effexor XR 75 mg oral capsule, extended release 1 cap(s) orally once a day 04-Jul-2022 Venlafaxine Extended Release Capsule, Extended Release (EFFEXOR XR)DOSE = 75 mg Oral DailyEffexor XR 75 mg oral capsule, extended release continued as the inpatient order Venlafaxine Extended Release Metoprolol Succinate ER 25 mg oral tablet, extended release 1 tab(s) orally once a [id number] Metoprolol Succinate Extended Release Tablet, Extended Release (TOPROL-XL)DOSE = 25 mg Oral DailyMetoprolol Succinate ER 25 mg oral tablet, extended release continued as the inpatient order Metoprolol Succinate Extended Release quinapril 40 mg oral tablet 1 tab(s) orally once a [id number] Reviewed and Held Vitamin D3 125 mcg (5000 intl units) oral tablet 1 tab(s) orally once a day 04-Jul-2022 Reviewed and Held Additional Current Orders Docusate Capsule (COLACE)DOSE = 100 mg Oral 2 Times a Day Normal [facility] PHOSPHORUSon 07-04-2022 Phosphate [Mass/Vol] 4.0 mg/dL Normal 2.5 - 4.9 [facility] Comment on above: Result Comment: The performance characteristics of phosphorus testing in heparinized plasma have been validated by the individual laboratory site where testing is performed. Testing on heparinized plasma is not approved by the FDA; however, such approval is not necessary. Performed By: #### G YUAN #### [facility] [address] [place] [address] PT/INRon 07-04-2022 PT Coag (PPP) [Time] 12.6 s Normal 9.8 - 13.4 [facility] Comment on above: Performed By: #### P TINR #### [address] [address] PT, INR 1.1 Normal 0.9 - 1.1 [facility] Comment on above: Performed By: #### P TINR #### [address] [address] Patient Profile - Adult v2on 07-04-2022 Patient Profile - Adult v2 Profile: Initial Info: How to be AddressedLINDA Spoken Language PreferredEnglish Source of Informationpatient Stated Reason for AdmissionICH Primary Contact Name and NumberCOLE SB Other Contact Names and [id number] Wants Family/Rep Notified of Admissionyes, primary contact Notify PCPnotify PCP Informed of Patient Visiting Rightsyes Limitations on Visitors/Phone Callsnone Arrived Fromhospital Patient Belongingsnone Medications Brought to Hospitalno General Health: Weight in kg82.1 kilogram(s) Weight in ppg942.9 pound(s) Weight Methodactual (measured) Scale Typebed Height in cm159.8 centimeter(s) Height in feet5 feet Height in inches2.95 inch(es) Height Methodstated BMI (kg/m2)32.15 square meter RSP Based Care: How would you like to participate in your careFULLY What is the number one concern for you during this hospitalizationTO GET BETTER What is the most important thing we can do to support you during this hospitalizationWATCH OVER ME Is there anything we need to know to best care for youNONE Substance: Smoking Statusnever smoker (1) Alcohol Usedenies(1) Drug Usedenies (1) Health Mgmt: Symptoms/Conditions Managed at Homecardiovascular Cardiovascular Symptoms/Conditionshy pertension Cardiovascular Management Strategiesmedication therapy Cardiovascular Managementmanaged Barriers to Managing Healthnone Relationship/Environ: Significant Exposurenone Resource/Environmenta l Concernsnone Primary Source of Support/Comfortchild( piotr) Lives Withadult child(piotr); spouse Living Arrangementshouse Services Anticipated at Transitionrehabilitat ion services; home health care Anticipated [facility] Significant IndicatorsComplete Information Review: Allergies, Home Meds and Significant Events have been Reviewed and Verified with Patient/Familyyes ALLERGY, INTOLERANCE, ADVERSE EVENT: Allergies: No Known Allergies: Active Electronic Signatures: Jose Ortiz (RN) (Signed 04-Jul-2022 12:00) Authored: Initial Info, General Health, RSP Based Care, Substance, Health Mgmt, Relationship/Environ, Additional Information Last Updated: 04-Jul-2022 12:00 by Jose Ortiz (SISSY) References: 1. Data Referenced From History and Physical - Critical Care 04-Jul-2022 08:18 Normal [facility] Provider Note - ED v3on 06-20 Provider Note - ED v3 Provider Note: Chart Review: ED NOTES ED NOTES: Source of Information: Patient. EMR was reviewed for previous records. The EMS transfer sheet was not available during my initial assessment of the patient. HPI: Stroke symptoms. This 71-year-old white female presents to the ED via EMS from home secondary to strokelike symptoms. Patient states for the past 2 days she has been having some gait issues. She went to bed morning at 1:30 AM and then awoke with stroke symptoms between 415 and 4:30 AM. Noted weakness of the left side of her body and left side of her face. Patient denies any other focal neurologic symptoms. Patient was van positive for EMS. Patient denies any use of blood thinners and does admit to history of hypertension in which she takes metoprolol for. Patient states that nothing makes her symptoms better or worse. PMH: Hypertension, depression, and vitamin D deficiency PSH: x2, bilateral total knee replacements, carpal tunnel surgery Social Hx: The patient denies any use of tobacco, alcohol or illicit drugs. Fam: MEDS: Metoprolol, Effexor, vitamin D3 ALLERGIES: NKDA PHYSICAL EXAM: General: Patient alert, awake, oriented X3, appears to be in no obvious distress, nontoxic, cooperative Skin: Warm. Dry. Intact. No rash. Eyes: PEARTLA, EOMIs intact, sclera white, conjunctiva clear HEENT: Atraumatic. Normo-cephalic. Oral and nasal mucosa pink and moist. Neck: Supple without meningismus, no lymphadenopathy. CV: Regular rate and rhythm without murmurs, heaves, lifts or thrills. Respiratory: Nonlabored breathing. There are no retractions or tachypnea. Lungs are clear to auscultation bilaterally. GI: Soft, nontender, without gross distention, bowel sounds present in all 4 quadrants. There is no pulsatile masses. There is no CVA tenderness. No rebound, rigidity or guarding. MUSC: There is no joint swelling or bony tenderness on exam. Neuro: See NIH scale Lower extremities: There is no peripheral edema bilaterally, negative Homans sign. No palpable cords. Distal pulses are +2/4 and present in both lower extremities. Psych: Maintains eye contact. Cooperative. ED course: EKG was interpreted by myself at 5:24 AM reveals normal sinus rhythm 83 bpm with nonspecific T wave changes. The NE interval is 158 ms. The QRS duration 78 ms. The QTC is 427 ms. [place] is 72 degrees. 4:37 AM stroke team was called 5:09 AM EMS arrived been positive patient taken directly to CT scanner. 5:20 AM patient arrived to room and NIH was performed 5:26 AM we paged the stroke neurologist. 5:[address] Chu stroke neurologist discussed the case with me and the call center will page the neurosurgical team for hemorrhagic stroke management 5:43 AM the radiologist contacted me concerning acute hemorrhagic right lenticular stroke that measures 1.5 x 1.5 x 2.5 cm. 6:07 AM I discussed the case with Dr. Gonzalez - neurosurgeon she did not feel the patient was in acute surgical case but wanted good blood pressure management with a blood pressure below 160 she recommended Cardene drip of acute negative blood pressure under control with labetalol. Patient to be transferred to [facility] to the ICU for further management. I did have a detailed discussion with the patient and patient's family concerning diagnosis and plan of care. This chart was dictated with the use of Sravnikupi software within the framework of the current electronic medical records software. Attempts were made to edit in real time, given time constraints there is the potential for inaccuracies in my dictation. Alie Umanzor, DO HISTORY OF PRESENTING ILLNESS YANELI is a 71 year old Female and was seen by me at 04-Jul-2022 05:25 for a chief complaint of stroke symptoms (Patient c/o LUE weakness, LLE weakness Facial Droop. Unable to move LUE. States she woke up 1 hour ago with symptoms, went to bed 3.5 hours ago, but states she has been having coordination and ambulation problems for 2 days. STROKE ALERT CALLED prior to arrival by EMS, physician met patient on arrival, direct to CT)(1). Triage Information: Most recent Vital Sign Value Date Temp (F): 98.4 07-04-2022 05:26 Temp (C): 36.8 07-04-2022 05:26 Heart Rate (beats/min): 87 07-04-2022 05:26 Respirations (breaths/min): 16 07-04-2022 05:26 SpO2 (%): 97 07-04-2022 05:26 BP Systolic (more content not included)... Normal [facility] Risk Screen - Adult Emergenc yon 07-04-2022 Risk Screen - Adult Emergency Preferred Language: Preferred Language: Preferred Language for Discussing Health Care (patient/designee)Stewart wick Patient Preferred Pharmacy: Patient Preferred Pharmacy Statement: I have reviewed and updated the patient's preferred pharmacy selection for today's visit. Advanced Directives: Advance Directive/DNRno Family Violence Adult: Abuse Screen: Are you or have you been threatened or abused physically, emotionally, or sexually by anyoneno Learning Assessment (Patient): Learning Assessment (Patient): Patient is Able to be Assessed for Learningyes Factors Influencing Readiness to Learninterest in learning; motivation to learn Factors that Impact Ability to Learnnone Devices/Methods Used to Communicatenone Learning Preferenceswritten material; verbal instruction Cultural Considerationsnone Developmental Considerationsnone Pentecostalism Considerationsnone Other Learnersspouse Learning Assessment (Other Learner): Learning Assessment (Other Learner): Other learner availableyes... Learnerspouse Factors Influencing Readiness to Learnmotivation to learn Factors that Impact Ability to Learnnone Devices/Methods Used to Communicatenone Learning Preferencesverbal instruction, written material Cultural Considerationsnone Developmental Considerationsnone Pentecostalism Considerationsnone Pressure Injury/TB/Substance: Pressure Injury: Pressure Injury Present on Admissionno Do you have a coughno Smoking Statusnever smoker (1) Alcohol Usedenies(1) Drug Usedenies (1) Admission Risk Screen: Significant IndicatorsComplete CAGE: CAGE: Is this an injured patient at a Trauma Center ([facility]/[place]/[facility]/[place]): no Electronic Signatures: Viviana Flores (RN) (Signed 04-Jul-2022 06:12) Authored: Preferred Language, Patient Preferred Pharmacy, Advanced Directives, Family Violence Adult, Learning Assessment (Patient), Learning Assessment (Other Learner), Pressure Injury/TB/Substance, Pressure Injury, CAGE Last Updated: 04-Jul-2022 06:12 by Viviana Flores (RN) References: 1. Data Referenced From Provider Note - ED v3 04-Jul-2022 05:32 Normal [facility] MRI SPECIALIST Evaluation z1-Rohxsc-Niq guage Evaluationon 07-04-2022 MRI SPECIALIST Evaluation p4-Sjwilc-[id number] Evaluation Rehab: Info: Time IN14:15 Time OUT14:45 Patient in ... at end of sessionbed, 2 railings up; alarm on; Nsg okay'd and reported pt has expressive communication difficulties and no observed difficulty with swallowing. Communicated with ... at end of sessionbedside nurse; physician Evaluation TypeSpeech-Language Evaluation Patient Effortexcellent Symptoms Noted During/After Treatmentnone Patient Profile Reviewedyes Reason for ReferralSuspected oral or pharyngeal dysphagia Referring PhysicianBates Patient/Family/Caregi desmond Comments/Observations Pt woken upon arrival. Pt remained awake, alert, and cooperative throughout visit. Pt on RA. Pt noted to independently take small bites/sips and have a slow rate of intake out of caution. Speech therapist was present and actively participating in session. Pertinent History of Current Functional ProblemPMHx: HTN, asthma, GERD, thyroid nodules, anxiety, depression and vitamin D deficiency who presented to the [facility] ED on 07/04 due to concern for stroke. She presented to the [facility] ED where iNIHSS was 8 (FD, LUE flaccidity LLE drift, dysarthria). CT brain was obtained and notable for 1.5 x 1.5 x 2.5 cm acute intracranial hemorrhage centered in the right lentiform nucleus without significant mass effect or midline shift. She was initially hypertensive to the 170s for which she was give 10 mg of IV labetalol x 2, and started on a nicardipine gtt. She was transferred to the [facility] ICU for further management. CXR (07/04/22): No acute cardiopulmonary process. Hearing Precautions/Limitatio nsWFL Impression: Criteria for Skilled Therapeutic Interventions Met (MRI SPECIALIST Eval)yes; treatment indicated Assessment (MRI SPECIALIST Eval)Pt presents with a mild motor speech impairment characterized by slurred speech as a result of left sided facial weakness. Rehab Potentialgood, to achieve stated therapy goals Therapy Frequency (MRI SPECIALIST Eval)2 times/wk Predicted Duration of Therapy Wyqjhcxynqxi94 days Pain: Pre-Treatment Pain Rating0/10 - no pain Post-Treatment Pain Rating0/10 - no pain Vision/Cognition/Mobi lity: Affect/Mental Status (Cognitive)WFL Orientation Status (Cognition)oriented x 3; oriented to; person; place; time Communication: Auditory Comprehension (Receptive)WFL Able to Follow Commands (Receptive)WFL; success, 2-step commands; success, 1-step commands; success, 3-step commands Answers Yes/No Questions (Receptive)WFL; closed questions; basic questions; personal questions Receptive Assessment/Interventi on/Treatment OutcomePt receptive language skills appear within functional limits at time of visit. Automatic Speech (Expressive)WFL; counting; days of the week Verbal Repetition (Expressive)WFL; phrase; sentence; words Speech Fluency (Expressive)fluent speech Conversational Speech (Expressive)WFL; simple level Confrontational Naming (Expressive)intact Responsive Speech (Expressive)intact Expressive Assessment/Interventi on/Treatment OutcomePt expressive language appears within functional limits at time of visit. Alternating Rapid Sounds (Motor Speech)WFL Motor Speech (Motor Speech)impaired Sequential Rapid Sounds (Motor Speech)WFL Observations (Motor Speech)Intelligibilit y ratin%; slurred speech and imprecise articulation of speech sounds observed Short Term Goals: Speech Language: Established [id number] Speech Language: Goal Details1. Pt will verbalize comprehension of MRI SPECIALIST recommendations. 2. Pt will successfully utilize intelligibility strategies (e.g. overarticulation, slow rate, increased volume, etc.) at the sentence level with mod cueing 80% of opportunities. Speech Language: Time Frame for Goal2 wks Education: Learnerpatient Barriers to Learningno barrier Methodverbal DC Recommendations: Anticipated Discharge Dispositionpatient would benefit from low frequency speech therapy at time of discharge. Electronic Signatures: Kira Wiley (OLLIE) (Signed 04-Jul-2022 15:24) Authored: Info, Impression, Pain, Vision/Cognition/Mobi lity, Communication, Short Term Goals, Education, DC Recommendations Cheri Moya (MRI SPECIALIST) (Signed 04-Jul-2022 15:25) Co-Signer: Impression, Pain, Vision/Cognition/Mobi lity, Communication, Short Term Goals, Education, DC Recommendations Last Updated: 04-Jul-2022 15:25 by Cheri Moya (MRI SPECIALIST) Normal [facility] Swallow Evaluation v2-Bedsid e Clinical Swallow, SLPon 07-04-2022 Swallow Evaluation v2-Bedside Clinical Swallow, MRI SPECIALIST Rehab: Info: Time IN14:15 Time OUT14:45 Patient in ... at end of sessionbed, 2 railings up; alarm on; Nsg okay'd and reported pt has expressive communication difficulties and no observed difficulty with swallowing. Communicated with ... at end of sessionbedside nurse; physician Evaluation TypeBedside Clinical Swallow, MRI SPECIALIST Patient Effortexcellent Symptoms Noted During/After Treatmentnone Patient Profile Reviewedyes Onset of Illness/Injury or Date of [id number] Reason for ReferralSuspected oral or pharyngeal dysphagia Referring PhysicianBates Patient/Family/Caregi desmond Comments/Observations Pt woken upon arrival. Pt remained awake, alert, and cooperative throughout visit. Pt on RA. Pt noted to independently take small bites/sips and have a slow rate of intake out of caution. Speech therapist was present and actively participating in session. Pertinent History of Current Functional ProblemPMHx: HTN, asthma, GERD, thyroid nodules, anxiety, depression and vitamin D deficiency who presented to the [facility] ED on 07/04 due to concern for stroke. She presented to the [facility] ED where iNIHSS was 8 (FD, LUE flaccidity LLE drift, dysarthria). CT brain was obtained and notable for 1.5 x 1.5 x 2.5 cm acute intracranial hemorrhage centered in the right lentiform nucleus without significant mass effect or midline shift. She was initially hypertensive to the 170s for which she was give 10 mg of IV labetalol x 2, and started on a nicardipine gtt. She was transferred to the [facility] ICU for further management. CXR (07/04/22): No acute cardiopulmonary process. Diet Prior to Admission TextureNo restrictions Diet Prior to Admission ConsistencyThin 0 (Regular thin) Hearing Precautions/Limitatio WFL Impression: Assessment (Swallow Eval)Pt consumed trials of thin liquids, mixed consistency fruit (regular solid + thin), and regular solids. Pt took 4-5 single sips of thin liquids using a straw, with no overt s/sx of aspiration observed. Pt ate 2 pieces of mixed consistency frit (regular solid + thin) using a fork, with no overt s/sx of aspiration observed. Pt took 4 bites of regular solids, with no overt s/sx of aspiration observed. Adequate labial seal noted. Adequate mastication of solids observed. Seemingly adequate swallow initiation observed based on laryngeal palpation. Minimal oral residue observed in left side of oral cavity following trials, however improved with liquid wash. Minimal anterior leakage of residue out of left corner of lips. Vocal quality remained clear throughout trials. Pt swallow function appears within functional limits at time of visit. no further MRI SPECIALIST needs identified regarding swallow function. Speech Therapy RecommendationsREC'D: -Pt may resume REGULAR/THIN LIQUID diet level. -If pt demo's s/s aspiration or difficulty with prescribed diet, make NPO and contact MRI SPECIALIST. Criteria for Skilled Therapeutic Interventions Met (Swallow Eval)no; no problems identified which require skilled intervention MRI SPECIALIST Diet RecommendationsRegula r MRI SPECIALIST Liquid Consistency RecommendationsThin 0 (Regular thin) Recommended Feeding/Eating Techniques (Swallow Eval)alternate between small bites and sips of food/liquid& check mouth frequently for oral residue/pocketing& feed upright in 90 degree position& maintain upright posture during/after eating for 30 mins& slow rate& small sips/bites Monitor for Signs of Aspiration (Swallow Eval)gurgly voice; cough; throat clearing Pain: Pre-Treatment Pain Rating0/10 - no pain Post-Treatment Pain Rating0/10 - no pain Vision/Cognition/Mobi lity: Affect/Mental Status (Cognitive)WFL Orientation Status (Cognition)oriented x 3; oriented to; place; person; time Oral Assess: Oral Musculature (Oral Mechanism)generally intact Structural Abnormalities (Oral Mechanism)none present Dentition (Oral Mechanism)present and adequate Secretion Management (Oral Mechanism)minimal anterior leakage noted out left corner of mouth during PO trials; no difficulty observed at rest Mucosal Quality (Oral Mechanism)adequate Oral Labial Strength (Oral Mechanism)left sided droop observed Lingual Strength (Oral Mechanism)deviation of tongue during protrusion toward left side Velar Elevation (Oral Mechanism)WFL Tone (Oral Mechanism)intact Oral Musculature General Assessmentfacial droop, left Observation of Self Feeding Skillsappropriate self-feeding skills observed Education: Learnerpatient Barriers to Learningno barrier Methodverbal DC Recommendations: Anticipated DIscharge Disposition (Swallow Eval)no further MRI SPECIALIST needs identified regarding swallow function Electronic Signatures: Kira Wiley (OLLIE) (Signed 04-Jul-2022 15:14) Entered: Info, Impression, Pain, Vision/Cognition/Mobi lity, Oral Assess, Education, DC Recommendations Authored: Impression, Pain, Vision/Cognition/Mobi lity, Oral Assess, Education, Info, DC Recommendations (more content not included)... Normal [facility] TROPONIN I, HIGH SENSITIVITY on 07-04-2022 TROPONIN I, HIGH SENSITIVITY 4 ng/L Normal 0 - 13 [facility] Comment on above: Result Comment: . Less than 99th percentile of normal range cutoff- Female and children under 18 years old <14 ng/L; Male <21 ng/L: Negative Repeat testing should be performed if clinically indicated. . Female and children under 18 years old 14-50 ng/L; Male 21-50 ng/L: Consistent with possible cardiac damage and possible increased clinical risk. Serial measurements may help to assess extent of myocardial damage. . >50 ng/L: Consistent with cardiac damage, increased clinical risk and myocardial infarction. Serial measurements may help assess extent of myocardial damage. . NOTE: Children less than 1 year old may have higher baseline troponin levels and results should be interpreted in conjunction with the overall clinical context. . NOTE: Troponin I testing is performed using a different testing methodology at [facility] than at other [facility]. Direct result comparisons should only be made within the same method. Performed By: #### [facility] #### [id number] [place] [address] TYPE + SCREENon 07-04-2022 ABO TYPE O Normal [facility] Comment on above: Performed By: #### T +S #### [address] [address] [place] TYPE Positive Normal [facility] Comment on above: Performed By: #### T +S #### [address] [address] Triage - EDon 07-04-2022 Triage - ED Quick Triage: The patient and/or guardian verbally acknowledges placement for services into the following (when Urgent Care Service hours are operating):emergency department Chart Review: PRIMARY ASSESSMENT Team Activation Team Activated: STROKE ARRIVAL INFORMATION Mode of Arrival: ambulance Agency Name: [facility] CHIEF COMPLAINT YANELI BASURTO is a Female patient with a chief complaint of stroke symptoms (Patient c/o LUE weakness, LLE weakness & Facial Droop. Unable to move LUE. States she woke up 1 hour ago with symptoms, went to bed 3.5 hours ago, but states she has been having coordination and ambulation problems for 2 days. STROKE ALERT CALLED prior to arrival by EMS, physician met patient on arrival, direct to CT). Triage Date/Time: 04-Jul-2022 05:10 MARVIN: 1 Pain Rating (0-10): 0 = None Vital Signs: Temperature: 98.4F ( 36.8C) Blood Pressure: 177/99 Mean: Heart Rate: 87 Respiratory Rate: 16 Pulse Oximetry: 97% Weight: 181.8 pounds. Calculated 82.5 kg. Amy Coma Scale: Best Eye Response: (E4) spontaneous Best Motor Response: (M6) obeys commands Best Verbal Response: (V5) oriented Garwood Score: 15 Allergies: no Mask applied: yes Patient has homicidal thoughts: no Last Known Well: known Time Last Known Well Date/Time: 02-Jul-2022 Brain attack / Stroke alert called: Prior to arrival by EMS Date and Time of Brain Attack / Stroke Alert: 04-Jul-2022 04:50 Patient taken [address] scanner: yes Risk Screens Suicide Risk Screen In the Past Month: Have you wished you were or wished you could go to sleep and not wake up no In the Past Month: Have you had any actual thoughts of killing yourself no In Your Lifetime: Have you ever done anything, started to do anything, or prepared to do anything to end your life no Hill Fall Scale Screening Has the patient fallen before (or is the patient in the ED as a result of a fall) has not had a fall Does the patient have an impaired gait has impaired gait Is the patient cognitively impaired not cognitively impaired Hill Fall Scale History of falling (immediate or previous) no (0) Secondary Diagnosis yes (15) Intravenous Therapy/ Heparin/Saline Lock yes (20) Gait/Transferring impaired (20) Ambulatory Aids crutches/walker/cane (15) Mental Status oriented to own ability (0) Hill Fall Risk Score: 70 Interventions: Hill Fall Interventions: HIGH INTERVENTIONS *Low and Moderate Interventions Plus: * supervised toileting at all times TRAVEL HISTORY Travel History Coronavirus Screening: no exposure or symptoms Travel Exposure History: NO travel to International locations in the past 30 days PAIN Pain Scale Used: JOSE ALEJANDRO Pain Rating (0-10): 0 = None Past Medical History: Past Medical History Reviewedyes Electronic Signatures: Delmar Hannon (SISSY) (Signed 04-Jul-2022 05:36) Entered: Risk Screens, Pain, Travel History, Chart Review, Scores, Past Medical History Authored: Quick Triage, Risk Screens, Pain, Travel History, Chart Review, Scores, Past Medical History Last Updated: 04-Jul-2022 05:36 by Delmar Hannon (SISSY) [facility] URINALYSISon 07-04-2022 Appearance (U) Canceled [facility] Comment on above: Order Comment: TEST URINALYSIS WAS CANCELLED, 07/04/2022 20:35 Performed By: #### U A #### [place] [address] ASCORBIC ACID Canceled [facility] Comment on above: Order Comment: TEST URINALYSIS WAS CANCELLED, 07/04/2022 20:35 Result Comment: Conc entrations > = 20 mg/dL of ascorbic acid can be expected to cause strong interference in the reactions testing for glucose, nitrite and blood. It is recommended to discontinue Vitamin C administration and retest in 10 hours. Performed By: #### U A #### [id number] Bilirubin Ql (U) Canceled [facility] Comment on above: Order Comment: TEST URINALYSIS WAS CANCELLED, 07/04/2022 20:35 Performed By: #### U A #### [address] [address] Color (U) Canceled [facility] Comment on above: Order Comment: TEST URINALYSIS WAS CANCELLED, 07/04/2022 20:35 Performed By: #### U A #### [address] [address] Glucose Ql (U) Canceled [facility] Comment on above: Order Comment: TEST URINALYSIS WAS CANCELLED, 07/04/2022 20:35 Performed By: #### U A #### [address] [address] Hemoglobin Ql (U) Canceled [facility] Comment on above: Order Comment: TEST URINALYSIS WAS CANCELLED, 07/04/2022 20:35 Performed By: #### U A #### [address] [address] Ketones Ql (U) Canceled [facility] Comment on above: Order Comment: TEST URINALYSIS WAS CANCELLED, 07/04/2022 20:35 Performed By: #### U A #### [address] [address] Leukocyte esterase Test strip Ql (U) Canceled [facility] Comment on above: Order Comment: TEST URINALYSIS WAS CANCELLED, 07/04/2022 20:35 Performed By: #### U A #### [address] [address] Nitrite Ql (U) Canceled [facility] Comment on above: Order Comment: TEST URINALYSIS WAS CANCELLED, 07/04/2022 20:35 Performed By: #### U A #### [address] [address] pH Canceled [facility] Comment on above: Order Comment: TEST URINALYSIS WAS CANCELLED, 07/04/2022 20:35 Performed By: #### U A #### [address] [address] Protein Ql (U) Canceled [facility] Comment on above: Order Comment: TEST URINALYSIS WAS CANCELLED, 07/04/2022 20:35 Performed By: #### U A #### [address] [address] Specific gravity (U) [Rel density] Canceled [facility] Comment on above: Order Comment: TEST URINALYSIS WAS CANCELLED, 07/04/2022 20:35 Performed By: #### U A #### [address] [address] UROBILINOGEN Canceled [facility] Comment on above: Order Comment: TEST URINALYSIS WAS CANCELLED, 07/04/2022 20:35 Performed By: #### U A #### [address] [address] Basophil percentageon 2021 Chloride [Moles/Vol] 104 mmol/L 98-107 [facility] Work Phone: Glucose [Mass/Vol] 113 mg/dL 74-106 [facility] Work Phone: Comment on above: Fasting Glucose resu lt from 100 to 125 mg/dL suggests IMPAIRED HOMEOSTASIS per A.D.A. criteria. Potassium [Moles/Vol] 4.4 mmol/L 3.5-5.1 [facility] Work Phone: Sodium [Moles/Vol] 139 mmol/L 136-145 [facility] Work Phone: Laboratory - Chemistry and C hemistry - challengeon 01-09-2022 CO2 [Moles/Vol] 30.0 mmol/L 21.0-32.0 [facility] Work Phone: Magnesium [Mass/Vol] 2.3 mg/dL 1.6-2.6 [facility] Work Phone: Urea nitrogen/Creatinine [Mass ratio] 17.8 mg/mg 10-20 [facility] Work Phone: No Panel Informationon 01-09 Estimated GFR (MDRD) Amer 65 mL/min >60 [facility] Work Phone: Comment on above: GFR Calc Estimated GFR (MDRD) Non-Af Amer 54 mL/min >60 [facility] Work Phone: Comment on above: Non- GFR Calc Serum or plasma calcium peace urement (mass/volume)on 01-09-2022 Calcium [Mass/Vol] 9.9 mg/dL 8.5-10.1 [facility] Work Phone: Serum or plasma creatinine m easurement (mass/volume)on 01-09-2022 Creatinine [Mass/Vol] 1.07 mg/dL 0.55-1.02 [facility] Work Phone: Comment on above: The validity of the calculated GFR & GFRAA in patients over 70 years has not been determined. Clinical correlation is essential. Serum or plasma urea nitroge n measurement (mass/volume)on 01-09-2022 Urea nitrogen [Mass/Vol] 19 mg/dL 7-18 [facility] Work Phone: Thin prep Papanicolaou smear with manual screeningon 01-09-2022 Thin prep Papanicolaou smear with manual screening 5 5-15 [facility] Work Phone: Laboratory - Chemistry and C hemistry - challengeon 01-07-2022 Bilirubin Ql (U) Negative [facility] Work Phone: Glucose Ql (U) Negative [facility] Work Phone: Ketones Ql (U) Negative [facility] Work Phone: pH (U) 7.5 [pH] [facility] Work Phone: Specific gravity (U) [Rel density] 1.010 [facility] Work Phone: Urobilinogen (U) [Mass/Vol] 0.2257158 mg/dL [facility] Work Phone: Laboratory - Hematology and Cell countson 01-07-2022 Hemoglobin Ql (U) Hemolyzed [facility] Work Phone: Laboratory - Specimen inform ationon 01-07-2022 Clarity (U) Cloudy [facility] Work Phone: Color (U) RED [facility] Work Phone: Laboratory - Urinalysison Nitrite Ql (U) Negative [facility] Work Phone: Protein Ql (U) 3+ [facility] Work Phone: No Panel Informationon 01-07 Urine Leukocytes Positive [facility] Work Phone: Urine Non-Hemolyzed Blood Large [facility] Work Phone: Microbiology: Culture, Urine on 06-07-2017 [facility] Trimethoprim/Sulfame t ho $ <=[address] [facility] Microbiology: (P) Culture, U rineon 06-06-2017 CUUR . Invalid Interpretation Code [facility] Microbiology: (P) Culture, U rineon 06-05-2017 CUUR . Invalid Interpretation Code [facility] Lab Report: (P) Urinalysis, Completeon 06-04-2017 Albumin Ql (U) Negative Invalid Interpretation Code Negative [facility] Bilirubin Ql (U) Negative Invalid Interpretation Code Negative [facility] Color Nom (U) Yellow Invalid Interpretation Code Yellow [facility] Glucose Ql (U) Normal mg/dl Invalid Interpretation Code Normal [facility] Ketones mass conc (U) Negative Invalid Interpretation Code Negative [facility] Leukocyte esterase Test strip Ql (U) [address] [facility] NITRITE UR Negative Invalid Interpretation Code Negative [facility] OCCULT BLOOD-UR 25 High [facility] pH Test strip (U) 5.0 [pH] Invalid Interpretation Code 5.0 - 8.0 [facility] Specific gravity Refractometry Relative Density (U) 1.015 Invalid Interpretation Code 1.002-1.030 [facility] Urine, clarity Sl. Cloudy Invalid Interpretation Code Clear [facility] Urine, ketones presence Negative Invalid Interpretation Code Negative [facility] Urine, protein Negative Invalid Interpretation Code Negative [facility] UROBILI Normal mg/dl Invalid Interpretation Code Normal [facility] Lab Report: Urinalysis, Comp leteon 06-04-2017 Epithelial cells LM.HPF #/area (Urine sed) 0-5 SEEN Invalid Interpretation Code 5-10 [facility] Mucus LM Ql (Urine sed) 0 SEEN Invalid Interpretation Code [facility] RBC LM.HPF #/vol (Urine sed) 0-5 SEEN Invalid Interpretation Code 0-5 [facility] Urine, bacteria in sediment 0 /[HPF] Invalid Interpretation Code None Seen [facility] WBC 10-25 SEEN Invalid Interpretation Code 0-5 [facility] WBC (Leukocytes) 10-25 SEEN Invalid Interpretation Code 0-5 [facility] Microbiology: Culture, Urine on 04-29-2017 [facility] Trimethoprim/Sulfame t ho $ <=[address] Code [facility] GE use only - for LinkLogic import when terms are not otherwise specified Trimethoprim/Sulfamet ho $ <=[address] Code [facility] Office Visit: blood in urine on 04-27-2017 Documentation of current medications (procedure) Done Invalid Interpretation Code [facility] Fall risk assessment No Invalid Interpretation Code [facility] Protein mass conc Done Invalid Interpretation Code [facility] Protein mass conc (U) Done [facility] Tobacco smoking status NHIS Never Invalid Interpretation Code [facility] Tobacco smoking status AKIS Never smoker Invalid Interpretation Code [facility] Tobacco use [facility] Never smoker Invalid Interpretation Code [facility] Office Visit: est annualon 0 04-18-2017 Albumin Ql (U) Negative [facility] Bilirubin Ql (U) Negative [facility] blood in urine (hemoglobin) by dipstick non-hemolyzed trace Invalid Interpretation Code [facility] Documentation of current medications (procedure) Done Invalid Interpretation Code [facility] Fall risk assessment No Invalid Interpretation Code [facility] Glucose Test strip mass conc (U) Negative Invalid Interpretation Code [facility] Ketones mass conc (U) Negative [facility] Nitrite Ql (U) Negative [facility] pH (U) 6.0 [pH] [facility] specific gravity, urine 1.[address] [facility] Tobacco smoking status NHIS Never Invalid Interpretation Code [facility] Tobacco use [facility] Never smoker Invalid Interpretation Code [facility] Urine, appearance clear Invalid Interpretation Code [facility] Urine, bilirubin presence Negative Invalid Interpretation Code [facility] Urine, color lt. yellow Invalid Interpretation Code [facility] Urine, glucose presence Negative Invalid Interpretation Code [facility] Urine, ketones presence Negative Invalid Interpretation Code [facility] Urine, leukocyte esterase presence Negative Invalid Interpretation Code [facility] Urine, nitrite presence Negative Invalid Interpretation Code [facility] Urine, pH 6.0 [pH] Invalid Interpretation Code [facility] Urine, protein Negative Invalid Interpretation Code [facility] Urine, urobilinogen presence Negative Invalid Interpretation Code [facility] Office Visit: est annualon 0 11-18-2016 Breast Mammogram screening Normal Bilateral Invalid Interpretation Code [facility] Vital Signs Date Time Vital Sign Value Performing Clinician Facility 02-18-2025 10:07-0400 Body height 160.[address] Torres Bravo MD Work Phone: [facility] 02-18-2025 10:07-0400 Body mass index (BMI) [Ratio] 31.7 kg/m2 Dr. Torres Bravo MD Work Phone: [facility] 02-18-2025 10:07-0400 Body temperature 96.2 [degF] Dr. Torres Bravo MD Work Phone: [facility] 02-18-2025 10:07-0400 Body weight 81.[address] Torres Bravo MD Work Phone: [facility] 02-18-2025 10:07-0400 Diastolic blood pressure 60 mm[Hg] Dr. Torres Bravo MD Work Phone: [facility] 02-18-2025 10:07-0400 Heart rate 70 /min Dr. Torres Bravo MD Work Phone: [facility] 02-18-2025 10:07-0400 Respiratory rate 16 /min Dr. Torres Bravo MD Work Phone: [facility] 02-18-2025 10:07-0400 SaO2% (BldA) [Mass fraction] 96 % Dr. Torres Bravo MD Work Phone: [facility] 02-18-2025 10:07-0400 Systolic blood pressure 112 mm[Hg] Dr. Torres Bravo MD Work Phone: [facility] 01-31-2025 11:00-0400 SaO2% (BldA) [Mass fraction] 96 % Milad Haines DO Work Phone: [facility] 01-31-2025 07:21-0400 Body temperature 97 [degF] Milad Haines DO Work Phone: [facility] 01-31-2025 07:21-0400 Diastolic blood pressure 66 mm[Hg] Milad Haines DO Work Phone: [facility] 01-31-2025 07:21-0400 Heart rate 74 /min Milad Haines DO Work Phone: [facility] 01-31-2025 07:21-0400 Respiratory rate 18 /min Milad Haines DO Work Phone: [facility] 01-31-2025 07:21-0400 Systolic blood pressure 114 mm[Hg] Milad Haines DO Work Phone: [facility] 01-30-2025 00:23-0400 Body height 160 cm Milad Haines DO Work Phone: [facility] 01-30-2025 00:23-0400 Body mass index (BMI) [Ratio] 32.3 kg/m2 Milad Haines DO Work Phone: [facility] 01-30-2025 00:23-0400 Body weight 82.7 kg Milad Haines DO Work Phone: [facility] 11-07-2023 09:47-0400 Body height 160.[address] Torres Bravo Work Phone: [facility] 11-07-2023 09:47-0400 Body mass index (BMI) [Ratio] 30.4 kg/m2 Dr. Torres Bravo Work Phone: [facility] 11-07-2023 09:47-0400 Body temperature 97.9 [degF] Dr. Torres Bravo Work Phone: [facility] 11-07-2023 09:47-0400 Body weight 78.[address] Torres Bravo Work Phone: [facility] 11-07-2023 09:47-0400 Diastolic blood pressure 76 mm[Hg] Dr. Torres Bravo Work Phone: [facility] 11-07-2023 09:47-0400 Heart rate 63 /min Dr. Torres Bravo Work Phone: [facility] 11-07-2023 09:47-0400 Respiratory rate 14 /min Dr. Torres Bravo Work Phone: [facility] 11-07-2023 09:47-0400 SaO2% (BldA) [Mass fraction] 94 % Dr. Torres Bravo Work Phone: [facility] 11-07-2023 09:47-0400 Systolic blood pressure 110 mm[Hg] Dr. Torres Bravo Work Phone: [facility] 10-31-2023 10:32-0400 Body mass index (BMI) [Ratio] 30.7 kg/m2 Dr. Torres Bravo Work Phone: [facility] 10-31-2023 10:32-0400 Body temperature 97.6 [degF] Dr. Torres Bravo Work Phone: [facility] 10-31-2023 10:32-0400 Body weight 78.[address] Torres Bravo Work Phone: [facility] 10-31-2023 10:32-0400 Diastolic blood pressure 76 mm[Hg] Dr. Torres Bravo Work Phone: [facility] 10-31-2023 10:32-0400 Heart rate 72 /min Dr. Torres Bravo Work Phone: [facility] 10-31-2023 10:32-0400 Respiratory rate 16 /min Dr. Torres Bravo Work Phone: [facility] 10-31-2023 10:32-0400 SaO2% (BldA) [Mass fraction] 97 % Dr. Torres Bravo Work Phone: [facility] 10-31-2023 10:32-0400 Systolic blood pressure 124 mm[Hg] Dr. Torres Bravo Work Phone: [facility] 09-27-2023 14:04-0500 Body height 160.[address] Torres Bravo Work Phone: [facility] 09-27-2023 14:04-0500 Body mass index (BMI) [Ratio] 30.6 kg/m2 Dr. Torres Bravo Work Phone: [facility] 09-27-2023 14:04-0500 Body temperature 97.3 [degF] Dr. Torres Bravo Work Phone: [facility] 09-27-2023 14:04-0500 Body weight 78.[address] Torres Bravo Work Phone: [facility] 09-27-2023 14:04-0500 Diastolic blood pressure 78 mm[Hg] Dr. Torres Bravo Work Phone: [facility] 09-27-2023 14:04-0500 Heart rate 68 /min Dr. Torres Bravo Work Phone: [facility] 09-27-2023 14:04-0500 Respiratory rate 16 /min Dr. Torres Bravo Work Phone: [facility] 09-27-2023 14:04-0500 SaO2% (BldA) [Mass fraction] 99 % Dr. Torres Bravo Work Phone: [facility] 09-27-2023 14:04-0500 Systolic blood pressure 120 mm[Hg] Dr. Torres Bravo Work Phone: [facility] 07-26-2023 15:06-0500 Body mass index (BMI) [Ratio] 30.4 kg/m2 Dr. Torres Bravo Work Phone: [facility] 07-26-2023 15:06-0500 Body temperature 98.9 [degF] Dr. Torres Bravo Work Phone: [facility] 07-26-2023 15:06-0500 Body weight 78.[address] Torres Bravo Work Phone: [facility] 07-26-2023 15:06-0500 Diastolic blood pressure 70 mm[Hg] Dr. Torres Bravo Work Phone: [facility] 07-26-2023 15:06-0500 Heart rate 73 /min Dr. Torres Bravo Work Phone: [facility] 07-26-2023 15:06-0500 Respiratory rate 16 /min Dr. Torres Bravo Work Phone: [facility] 07-26-2023 15:06-0500 SaO2% (BldA) [Mass fraction] 97 % Dr. Torres Bravo Work Phone: [facility] 07-26-2023 15:06-0500 Systolic blood pressure 120 mm[Hg] Dr. Torres Bravo Work Phone: [facility] 02-27-2023 11:20-0400 Body height 160.[address] Torres Bravo Work Phone: [facility] 02-27-2023 11:20-0400 Body mass index (BMI) [Ratio] 29.7 kg/m2 Dr. Torres Bravo Work Phone: [facility] 02-27-2023 11:20-0400 Body temperature 96 [degF] Dr. Torres Bravo Work Phone: [facility] 02-27-2023 11:20-0400 Body weight 76.[address] Torres Bravo Work Phone: [facility] 02-27-2023 11:20-0400 Diastolic blood pressure 70 mm[Hg] Dr. Torres Bravo Work Phone: [facility] 02-27-2023 11:20-0400 Heart rate 58 /min Dr. Torres Bravo Work Phone: [facility] 02-27-2023 11:20-0400 Respiratory rate 18 /min Dr. Torres Bravo Work Phone: [facility] 02-27-2023 11:20-0400 SaO2% (BldA) [Mass fraction] 97 % Dr. Torres Bravo Work Phone: [facility] 02-27-2023 11:20-0400 Systolic blood pressure 118 mm[Hg] Dr. Torres Bravo Work Phone: [facility] 02-06-2023 15:13-0400 Body height 160.[address] Torres Bravo Work Phone: [facility] 01-24-2023 10:57-0400 Body mass index (BMI) [Ratio] 29.4 kg/m2 Dr. Torres Bravo Work Phone: [facility] 01-24-2023 10:57-0400 Body temperature 98.6 [degF] Dr. Torres Bravo Work Phone: [facility] 01-24-2023 10:57-0400 Body weight 75.[address] Torres Bravo Work Phone: [facility] 01-24-2023 10:57-0400 Diastolic blood pressure 64 mm[Hg] Dr. Torres Bravo Work Phone: [facility] 01-24-2023 10:57-0400 Heart rate 58 /min Dr. Torres Bravo Work Phone: [facility] 01-24-2023 10:57-0400 Respiratory rate 14 /min Dr. Torres Bravo Work Phone: [facility] 01-24-2023 10:57-0400 SaO2% (BldA) [Mass fraction] 97 % Dr. Torres Bravo Work Phone: [facility] 01-24-2023 10:57-0400 Systolic blood pressure 118 mm[Hg] Dr. Torres Bravo Work Phone: [facility] 12-01-2022 11:42-0400 Body height 157.48 cm No PCP None [facility] Work Phone: 12-01-2022 11:42-0400 Body mass index (BMI) [Ratio] 29.08 kg/m2 No PCP None [facility] Work Phone: 12-01-2022 11:42-0400 Body surface area Derived from formula 1.73 m2 No PCP None [facility] Work Phone: 12-01-2022 11:42-0400 Body temperature 98.8 [degF] No PCP None [facility] Work Phone: 12-01-2022 11:42-0400 Body weight 72.12 kg No PCP None [facility] Work Phone: 12-01-2022 11:42-0400 Diastolic blood pressure 71 mm[Hg] No PCP None [facility] Work Phone: 12-01-2022 11:42-0400 Heart rate 77 /min No PCP None [facility] Work Phone: 12-01-2022 11:42-0400 Respiratory rate 17 /min No PCP None [facility] Work Phone: 12-01-2022 11:42-0400 SaO2% (BldA) [Mass fraction] 99 % No PCP None [facility] Work Phone: 12-01-2022 11:42-0400 Systolic blood pressure 147 mm[Hg] No PCP None [facility] Work Phone: 12-01-2022 11:42-0400 0 1 No PCP None [facility] Work Phone: Comment on above: [employer] 11-29-2022 09:05-0400 Body mass index (BMI) [Ratio] 28.2 kg/m2 Dr. Torres Bravo Work Phone: [facility] 11-29-2022 09:05-0400 Body temperature 98 [degF] Dr. Torres Bravo Work Phone: [facility] 11-29-2022 09:05-0400 Body weight 72.[address] Torres Bravo Work Phone: [facility] 11-29-2022 09:05-0400 Diastolic blood pressure 64 mm[Hg] Dr. Torres Bravo Work Phone: [facility] 11-29-2022 09:05-0400 Heart rate 62 /min Dr. Torres Bravo Work Phone: [facility] 11-29-2022 09:05-0400 Respiratory rate 16 /min Dr. Torres Bravo Work Phone: [facility] 11-29-2022 09:05-0400 SaO2% (BldA) [Mass fraction] 98 % Dr. Torres Bravo Work Phone: [facility] 11-29-2022 09:05-0400 Systolic blood pressure 134 mm[Hg] Dr. Torres Bravo Work Phone: [facility] 11-21-2022 16:00-0400 Body mass index (BMI) [Ratio] 28.3 kg/m2 Dr. Torres Bravo Work Phone: [facility] 11-21-2022 16:00-0400 Body temperature 97.1 [degF] Dr. Torres Bravo Work Phone: [facility] 11-21-2022 16:00-0400 Body weight 72.[address] Torres Bravo Work Phone: [facility] 11-21-2022 16:00-0400 Diastolic blood pressure 83 mm[Hg] Dr. Torres Bravo Work Phone: [facility] 11-21-2022 16:00-0400 Heart rate 85 /min Dr. Torres Bravo Work Phone: [facility] 11-21-2022 16:00-0400 Respiratory rate 16 /min Dr. Torres Bravo Work Phone: [facility] 11-21-2022 16:00-0400 SaO2% (BldA) [Mass fraction] 95 % Dr. Torres Bravo Work Phone: [facility] 11-21-2022 16:00-0400 Systolic blood pressure 132 mm[Hg] Dr. Torres Bravo Work Phone: [facility] 11-16-2022 13:55-0400 Body mass index (BMI) [Ratio] 28.3 kg/m2 Dr. Torres Bravo Work Phone: [facility] 11-16-2022 13:55-0400 Body temperature 96.8 [degF] Dr. Torres Bravo Work Phone: [facility] 11-16-2022 13:55-0400 Body weight 72.[address] Torres Bravo Work Phone: [facility] 11-16-2022 13:55-0400 Diastolic blood pressure 84 mm[Hg] Dr. Torres Bravo Work Phone: [facility] 11-16-2022 13:55-0400 Heart rate 72 /min Dr. Torres Bravo Work Phone: [facility] 11-16-2022 13:55-0400 Respiratory rate 18 /min Dr. Torres Bravo Work Phone: [facility] 11-16-2022 13:55-0400 Systolic blood pressure 144 mm[Hg] Dr. Torres Bravo Work Phone: [facility] 11-06-2022 10:50-0400 Body mass index (BMI) [Ratio] 29.1 kg/m2 Dr. Torres Bravo Work Phone: [facility] 11-06-2022 10:50-0400 Body temperature 97.2 [degF] Dr. Torres Bravo Work Phone: [facility] 11-06-2022 10:50-0400 Body weight 74.[address] Torres Bravo Work Phone: [facility] 11-06-2022 10:50-0400 Diastolic blood pressure 88 mm[Hg] Dr. Torres Bravo Work Phone: [facility] 11-06-2022 10:50-0400 Heart rate 68 /min Dr. Torres Bravo Work Phone: [facility] 11-06-2022 10:50-0400 Respiratory rate 18 /min Dr. Torres Bravo Work Phone: [facility] 11-06-2022 10:50-0400 SaO2% (BldA) [Mass fraction] 98 % Dr. Torres Bravo Work Phone: [facility] 11-06-2022 10:50-0400 Systolic blood pressure 120 mm[Hg] Dr. Torres Bravo Work Phone: [facility] 10-03-2022 13:41-0500 Body height 160.[address] Kaleb Astorga Work Phone: [facility] 10-03-2022 13:41-0500 Body mass index (BMI) [Ratio] 29 kg/m2 Dr. Kaleb Astorga Work Phone: [facility] 10-03-2022 13:41-0500 Body temperature 98.1 [degF] Dr. Kaleb Astorga Work Phone: [facility] 10-03-2022 13:41-0500 Body weight 74.[address] Kaleb Astorga Work Phone: [facility] 10-03-2022 13:41-0500 Diastolic blood pressure 74 mm[Hg] Dr. Kaleb Astorga Work Phone: [facility] 10-03-2022 13:41-0500 Heart rate 65 /min Dr. Kaleb Astorga Work Phone: [facility] 10-03-2022 13:41-0500 Respiratory rate 14 /min Dr. Kaleb Astorga Work Phone: [facility] 10-03-2022 13:41-0500 Systolic blood pressure 122 mm[Hg] Dr. Kaleb Astorga Work Phone: [facility] 09-26-2022 13:52-0500 Body height 157.48 cm No PCP None [facility] Daryl [address] Work Phone: 09-26-2022 13:52-0500 Body mass index (BMI) [Ratio] 31.09 kg/m2 No PCP None AG-Coygqohsj-Cvcbxk n [facility] Daryl [address] Work Phone: 09-26-2022 13:52-0500 Body surface area Derived from formula 1.78 m2 No PCP None JF-Betnthoha-Pyjdel [facility] [address]aryl [address] Work Phone: 09-26-2022 13:52-0500 Body weight 77.11 kg No PCP None ID-Kzejkvohl-Tjj [facility] [address]aryl [address] Work Phone: 09-26-2022 13:52-0500 Diastolic blood pressure 74 mm[Hg] No PCP None KW-Ihzwfwtel-Fivhgm [facility] [address]aryl [address] Work Phone: 09-26-2022 13:52-0500 Heart rate 72 /min No PCP None FM-Jzwnyjrel-Gnv [facility] [address] Work Phone: 09-26-2022 13:52-0500 Systolic blood pressure 141 mm[Hg] No PCP None RX-Ntmxymmot-Trlrtd [facility] [address]aryl [address] Work Phone: 08-29-2022 16:12-0500 Body temperature 97.3 [degF] Laura Tim PT Work Phone: [facility] 08-29-2022 16:12-0500 Diastolic blood pressure 78 mm[Hg] Laura Tim PT Work Phone: [facility] 08-29-2022 16:12-0500 Heart rate 76 /min Laura Tim PT Work Phone: [facility] 08-29-2022 16:12-0500 Respiratory rate 16 /min Laura Tim PT Work Phone: [facility] 08-29-2022 16:12-0500 SaO2% (BldA) [Mass fraction] 98 % Laura Tim PT Work Phone: [facility] 08-29-2022 16:12-0500 Systolic blood pressure 150 mm[Hg] Laura Haldarinelman-Funez PT Work Phone: [facility] 08-28-2022 09:14-0500 Body temperature 99 [degF] Shannan Horschler OT/L Work Phone: [facility] 08-28-2022 09:14-0500 Diastolic blood pressure 60 mm[Hg] Shannan Horschler OT/L Work Phone: [facility] 08-28-2022 09:14-0500 Heart rate 60 /min Shannan Horschler OT/L Work Phone: [facility] 08-28-2022 09:14-0500 Respiratory rate 18 /min Shannan Horschler OT/L Work Phone: [facility] 08-28-2022 09:14-0500 SaO2% (BldA) [Mass fraction] 97 % Shannan Horschler OT/L Work Phone: [facility] 08-28-2022 09:14-0500 Systolic blood pressure 124 mm[Hg] Shannan Horschler OT/L Work Phone: [facility] 08-23-2022 09:49-0500 Body temperature 98.01 [degF] Laura Erickson-Dee Dee PT Work Phone: [facility] 08-23-2022 09:49-0500 Diastolic blood pressure 82 mm[Hg] Laura Halderman-Funez PT Work Phone: [facility] 08-23-2022 09:49-0500 Heart rate 60 /min Laura Doman-Funez PT Work Phone: [facility] 08-23-2022 09:49-0500 Respiratory rate 18 /min Laura Erickson-Funez PT Work Phone: [facility] 08-23-2022 09:49-0500 SaO2% (BldA) [Mass fraction] 96 % Laura Halderman-Funez PT Work Phone: [facility] 08-23-2022 09:49-0500 Systolic blood pressure 140 mm[Hg] Laura Tim PT Work Phone: [facility] 08-22-2022 14:35-0500 Body temperature 98.2 [degF] Nitza Lexi RAND/L Work Phone: [facility] 08-22-2022 14:35-0500 Diastolic blood pressure 70 mm[Hg] Nitza Lexi RAND/L Work Phone: [facility] 08-22-2022 14:35-0500 Heart rate 54 /min Nitza Lexi RAND/L Work Phone: [facility] 08-22-2022 14:35-0500 Respiratory rate 16 /min Nitza Lexi RAND/L Work Phone: [facility] 08-22-2022 14:35-0500 SaO2% (BldA) [Mass fraction] 96 % Nitza Lexi RAND/L Work Phone: [facility] 08-22-2022 14:35-0500 Systolic blood pressure 144 mm[Hg] Nitza Lexi RAND/L Work Phone: [facility] 2022 10:42-0500 Body temperature 97.3 [degF] Shannan Horschler OT/L Work Phone: [facility] 2022 10:42-0500 Diastolic blood pressure 64 mm[Hg] Shannan Horschler OT/L Work Phone: [facility] 2022 10:42-0500 Heart rate 74 /min Shannan Horschler OT/L Work Phone: [facility] 2022 10:42-0500 Respiratory rate 16 /min Shannan Horschler OT/L Work Phone: [facility] 2022 10:42-0500 SaO2% (BldA) [Mass fraction] 97 % Shannan Horschler OT/L Work Phone: [facility] 2022 10:42-0500 Systolic blood pressure 128 mm[Hg] Shannan Horschler OT/L Work Phone: [facility] 08-16-2022 13:00-0500 Diastolic blood pressure 74 mm[Hg] Merry Gale CCC-MRI SPECIALIST Work Phone: [facility] 08-16-2022 13:00-0500 Heart rate 62 /min Merry Gale CCC-MRI SPECIALIST Work Phone: [facility] 08-16-2022 13:00-0500 Respiratory rate 18 /min Merry Gale CCC-MRI SPECIALIST Work Phone: [facility] 08-16-2022 13:00-0500 SaO2% (BldA) [Mass fraction] 97 % Merry Gale CCC-MRI SPECIALIST Work Phone: [facility] 08-16-2022 13:00-0500 Systolic blood pressure 117 mm[Hg] Merry Gale CCC-MRI SPECIALIST Work Phone: [facility] 08-14-2022 14:26-0500 Body temperature 98.8 [degF] Nitza Lexi RAND/L Work Phone: [facility] 08-14-2022 14:26-0500 Diastolic blood pressure 80 mm[Hg] Nitza Lexi RAND/L Work Phone: [facility] 08-14-2022 14:26-0500 Heart rate 59 /min Nitza Lexi RAND/L Work Phone: [facility] 08-14-2022 14:26-0500 Respiratory rate 16 /min Nitza Lexi RAND/L Work Phone: [facility] 08-14-2022 14:26-0500 SaO2% (BldA) [Mass fraction] 96 % Nitza Lexi RAND/L Work Phone: [facility] 08-14-2022 14:26-0500 Systolic blood pressure 130 mm[Hg] Nitza Lexi RAND/L Work Phone: [facility] 08-10-2022 09:55-0500 Diastolic blood pressure 70 mm[Hg] Nitza Lexi RAND/L Work Phone: [facility] 08-10-2022 09:55-0500 Systolic blood pressure 146 mm[Hg] Nitza Lexi RAND/L Work Phone: [facility] 08-10-2022 09:17-0500 Body temperature 97.2 [degF] Nitza Lexi RAND/L Work Phone: [facility] 08-10-2022 09:17-0500 Heart rate 55 /min Nitza Lexi RAND/L Work Phone: [facility] 08-10-2022 09:17-0500 Respiratory rate 16 /min Nitza Lexi RAND/L Work Phone: [facility] 08-10-2022 09:17-0500 SaO2% (BldA) [Mass fraction] 96 % Nitza Lexi RAND/L Work Phone: [facility] 08-09-2022 15:30-0500 Body temperature 97.39 [degF] Jose Guadalupe Blackert DISTRICT RECRUITER Work Phone: [facility] 08-09-2022 15:30-0500 Diastolic blood pressure 78 mm[Hg] Jose Guadalupe Blackert DISTRICT RECRUITER Work Phone: [facility] 08-09-2022 15:30-0500 Heart rate 85 /min Jose Guadalupe Blackert DISTRICT RECRUITER Work Phone: [facility] 08-09-2022 15:30-0500 Respiratory rate 16 /min Jose Guadalupe Blackert DISTRICT RECRUITER Work Phone: [facility] 08-09-2022 15:30-0500 SaO2% (BldA) [Mass fraction] 94 % Jose Guadalupe Blackert DISTRICT RECRUITER Work Phone: [facility] 08-09-2022 15:30-0500 Systolic blood pressure 130 mm[Hg] Jose Guadalupe Mccurdy DISTRICT RECRUITER Work Phone: [facility] 08-09-2022 11:58-0500 Body temperature 98.1 [degF] Suma Edwards RN Work Phone: [facility] 08-09-2022 11:58-0500 Diastolic blood pressure 64 mm[Hg] Suma Edwards RN Work Phone: [facility] 08-09-2022 11:58-0500 Heart rate 60 /min Suma Most RN Work Phone: [facility] 08-09-2022 11:58-0500 Respiratory rate 16 /min Sumabraydon Edwards RN Work Phone: [facility] 08-09-2022 11:58-0500 SaO2% (BldA) [Mass fraction] 98 % Sumabraydon Edwards RN Work Phone: [facility] 08-09-2022 11:58-0500 Systolic blood pressure 128 mm[Hg] Suma Most RN Work Phone: [facility] 08-08-2022 13:38-0500 Diastolic blood pressure 70 mm[Hg] Nitza Lexi RAND/L Work Phone: [facility] 08-08-2022 13:38-0500 Systolic blood pressure 132 mm[Hg] Nitza Lexi RAND/L Work Phone: [facility] 08-08-2022 12:40-0500 Body temperature 97.81 [degF] Nitza Lexi RAND/L Work Phone: [facility] 08-08-2022 12:40-0500 Heart rate 55 /min Nitza Lexi RAND/L Work Phone: [facility] 08-08-2022 12:40-0500 Respiratory rate 16 /min Nitza Lexi RAND/L Work Phone: [facility] 08-08-2022 12:40-0500 SaO2% (BldA) [Mass fraction] 98 % Nitza Moralesa RAND/L Work Phone: [facility] 08-04-2022 14:29-0500 Body temperature 97.3 [degF] Sumajesse Edwards RN Work Phone: [facility] 08-04-2022 14:29-0500 Diastolic blood pressure 76 mm[Hg] Suma Most RN Work Phone: [facility] 08-04-2022 14:29-0500 Heart rate 68 /min Suma Most RN Work Phone: [facility] 08-04-2022 14:29-0500 Respiratory rate 16 /min Suma Most RN Work Phone: [facility] 08-04-2022 14:29-0500 SaO2% (BldA) [Mass fraction] 96 % Suma Most RN Work Phone: [facility] 08-04-2022 14:29-0500 Systolic blood pressure 130 mm[Hg] Suma Most RN Work Phone: [facility] 08-04-2022 11:49-0500 Body temperature 97.3 [degF] Cassandra Guerra RAND/L Work Phone: [facility] 08-04-2022 11:49-0500 Diastolic blood pressure 68 mm[Hg] Cassandra Guerra RAND/L Work Phone: [facility] 08-04-2022 11:49-0500 Heart rate 65 /min Cassandra Guerra RAND/L Work Phone: [facility] 08-04-2022 11:49-0500 Respiratory rate 18 /min Cassandra Guerra RAND/L Work Phone: [facility] 08-04-2022 11:49-0500 SaO2% (BldA) [Mass fraction] 98 % Cassandra Guerra RAND/L Work Phone: [facility] 08-04-2022 11:49-0500 Systolic blood pressure 158 mm[Hg] Cassandra Gurera RAND/L Work Phone: [facility] 08-03-2022 14:50-0500 Body temperature 97.2 [degF] Jose Guadalupe Riveraert DISTRICT RECRUITER Work Phone: [facility] 08-03-2022 14:50-0500 Diastolic blood pressure 78 mm[Hg] Jose Guadalupe Riveraert DISTRICT RECRUITER Work Phone: [facility] 08-03-2022 14:50-0500 Heart rate 58 /min Jose Guadalupe Blackert DISTRICT RECRUITER Work Phone: [facility] 08-03-2022 14:50-0500 Respiratory rate 17 /min Jose Guadalupe Riveraert DISTRICT RECRUITER Work Phone: [facility] 08-03-2022 14:50-0500 SaO2% (BldA) [Mass fraction] 97 % Jose Guadalupe Riveraert DISTRICT RECRUITER Work Phone: [facility] 08-03-2022 14:50-0500 Systolic blood pressure 120 mm[Hg] Jose Guadalupe Riveraert DISTRICT RECRUITER Work Phone: [facility] 08-01-2022 14:44-0500 Body temperature 98.2 [degF] Veronica Opal CCC-MRI SPECIALIST Work Phone: [facility] 08-01-2022 14:44-0500 Diastolic blood pressure 72 mm[Hg] Veronica Opal CCC-MRI SPECIALIST Work Phone: [facility] 08-01-2022 14:44-0500 Heart rate 61 /min Veronica Opal CCC-MRI SPECIALIST Work Phone: [facility] 08-01-2022 14:44-0500 Respiratory rate 16 /min Veronica Opal CCC-MRI SPECIALIST Work Phone: [facility] 08-01-2022 14:44-0500 SaO2% (BldA) [Mass fraction] 95 % Veronica Opal CCC-MRI SPECIALIST Work Phone: [facility] 08-01-2022 14:44-0500 Systolic blood pressure 159 mm[Hg] Veronica Opal CCC-MRI SPECIALIST Work Phone: [place] [address] 10:40-0500 Body temperature 97.11 [degF] Shannan Horschler OT/L Work Phone: [facility] 08-01-2022 10:40-0500 Diastolic blood pressure 70 mm[Hg] Shannan Horschler OT/L Work Phone: [facility] 08-01-2022 10:40-0500 Heart rate 55 /min Shannan Horschler OT/L Work Phone: [facility] 08-01-2022 10:40-0500 Respiratory rate 16 /min Shannan Horschler OT/L Work Phone: [facility] 08-01-2022 10:40-0500 SaO2% (BldA) [Mass fraction] 95 % Shannan Horschler OT/L Work Phone: [facility] 08-01-2022 10:40-0500 Systolic blood pressure 130 mm[Hg] Shannan Horschler OT/L Work Phone: [facility] 07-28-2022 15:32-0500 Body temperature 98.6 [degF] Laura Erickson-Dee Dee PT Work Phone: [facility] 07-28-2022 15:32-0500 Diastolic blood pressure 72 mm[Hg] Laura Erickson-Dee Dee PT Work Phone: [facility] 07-28-2022 15:32-0500 Heart rate 53 /min Laura Erickson-Funez PT Work Phone: [facility] 07-28-2022 15:32-0500 Respiratory rate 18 /min Laura Erickson-Funez PT Work Phone: [facility] 07-28-2022 15:32-0500 SaO2% (BldA) [Mass fraction] 95 % Laura Erickson-Funez PT Work Phone: [facility] 07-28-2022 15:32-0500 Systolic blood pressure 179 mm[Hg] Laura Tim PT Work Phone: [facility] 07-27-2022 13:23-0500 Heart rate 55 /min Kim Samanta OT/L Work Phone: [facility] 07-27-2022 13:23-0500 SaO2% (BldA) [Mass fraction] 97 % Kim Samanta OT/L Work Phone: [facility] 07-27-2022 12:41-0500 Body temperature 97.81 [degF] Kim Samanta OT/L Work Phone: [facility] 07-27-2022 12:41-0500 Diastolic blood pressure 78 mm[Hg] Kim Samanta OT/L Work Phone: [facility] 07-27-2022 12:41-0500 Respiratory rate 18 /min Kim Samanta OT/L Work Phone: [facility] 07-27-2022 12:41-0500 Systolic blood pressure 138 mm[Hg] Kim Samanta OT/L Work Phone: [facility] 07-26-2022 11:22-0500 Body height 157.5 cm Kathy Vaughan RN Work Phone: [facility] 07-26-2022 11:22-0500 Body temperature 97.5 [degF] Kathy Vuaghan RN Work Phone: [facility] 07-26-2022 11:22-0500 Body weight 78.02 kg Kathy Vaughan RN Work Phone: [facility] 07-26-2022 11:22-0500 Diastolic blood pressure 70 mm[Hg] Kathy Vaughan RN Work Phone: [facility] 07-26-2022 11:22-0500 Heart rate 52 /min Kathy Vaughan RN Work Phone: [facility] 07-26-2022 11:22-0500 SaO2% (BldA) [Mass fraction] 97 % Kathy Vaughan RN Work Phone: [facility] 07-26-2022 11:22-0500 Systolic blood pressure 148 mm[Hg] Kathy Vaughan RN Work Phone: [facility] 01-07-2022 09:00-0400 Body temperature 98 [degF] Dr. Kaleb Astorga Work Phone: [facility] Work Phone: 01-07-2022 09:00-0400 Diastolic blood pressure 80 mm[Hg] Dr. Kaleb Astorga Work Phone: [facility] Work Phone: 01-07-2022 09:00-0400 Heart rate 86 /min Dr. Kaleb Astorga Work Phone: [facility] Work Phone: 01-07-2022 09:00-0400 Respiratory rate 15 /min Dr. Kaleb Astorga Work Phone: [facility] Work Phone: 01-07-2022 09:00-0400 SaO2% (BldA) [Mass fraction] 99 % Dr. Kaleb Astorga Work Phone: [facility] Work Phone: 01-07-2022 09:00-0400 Systolic blood pressure 170 mm[Hg] Dr. Kaleb Astorga Work Phone: [facility] Work Phone: 10-13-2021 09:07-0500 Body height 160.[address] Kaleb Astorga Work Phone: [facility] Work Phone: 10-13-2021 09:07-0500 Body mass index (BMI) [Ratio] 31.8 kg/m2 Dr. Kaleb Astorga Work Phone: [facility] Work Phone: 10-13-2021 09:07-0500 Body weight 81.[address] Kaleb Astorga Work Phone: [facility] Work Phone: 10-13-2021 09:07-0500 Diastolic blood pressure 74 mm[Hg] Dr. Kaleb Astorga Work Phone: [facility] Work Phone: 10-13-2021 09:07-0500 Systolic blood pressure 132 mm[Hg] Dr. Kaleb Astorga Work Phone: [facility] Work Phone: 04-27-2017 15:08-0400 BMI (Body Mass Index) 32.09 kg/m2 Laura Singh MD [facility] 04-27-2017 15:08-0400 Body Temperature 97.8 [degF] Laura Singh MD [facility] 04-27-2017 15:08-0400 Body Temperature 97.81 [degF] Laura Singh MD [facility] 04-27-2017 15:08-0400 BP Diastolic 75 mm[Hg] Laura Singh MD [facility] 04-27-2017 15:08-0400 BP Systolic 139 mm[Hg] Laura Singh MD [facility] 04-27-2017 15:08-0400 Height 160.02 cm Laura Singh MD [facility] 04-27-2017 15:08-0400 Pulse (Heart Rate) 91 /min Laura Singh MD [facility] 04-27-2017 15:08-0400 Respiratory Rate 17 /min Laura Singh MD [facility] 04-27-2017 15:08-0400 Weight 82.19 kg Laura Singh MD [facility] 04-18-2017 08:14-0400 BMI (Body Mass Index) 32.2 kg/m2 Ami Morrison NP [facility] 04-18-2017 08:14-0400 Body Temperature 97.6 [degF] Ami Morrison NP [facility] 04-18-2017 08:14-0400 Body Temperature 97.59 [degF] [facility] 04-18-2017 08:14-0400 BP Diastolic 75 mm[Hg] Ami Morrison AGRONOMY LOCATION MANAGER [facility] 04-18-2017 08:14-0400 BP Systolic 132 mm[Hg] Ami Prince AGRONOMY LOCATION MANAGER [facility] 04-18-2017 08:14-0400 Height 160.02 cm Ami Morrison AGRONOMY LOCATION MANAGER [facility] 04-18-2017 08:14-0400 Pulse (Heart Rate) 59 /min Ami Morrison AGRONOMY LOCATION MANAGER [facility] 04-18-2017 08:14-0400 Respiratory Rate 16 /min Ami Morrison AGRONOMY LOCATION MANAGER [facility] 04-18-2017 08:14-0400 Weight 82.46 kg Ami Morrison AGRONOMY LOCATION MANAGER [facility] Encounters Encounter Date Encounter Type Care Provider Facility Start: 02-18-2025 End: 02-18-2025 Subsequent hospital visit by physician Rad External Film EF RAD EXTERNAL FILM VIRTUAL Comment on above: Arrived Start: 02-18-2025 End: 02-18-2025 ambulatory [facility] Start: 02-18-2025 End: 02-18-[address] Torres Bravo MD -[facility] Work Phone: Start: 02-18-2025 End: 02-18-[address] Torres Bravo MD Work Phone: -[facility] Start: 02-10-2025 End: 02-10-2025 ambulatory ANGELA DIXONICHERT Facility:[id number] Start: 02-09-2025 End: 02-09-2025 Patient encounter procedure Danielle JIMENEZ -[facility] Work Phone: Start: 02-09-2025 End: 02-09-[address] Torres Bravo MD Work Phone: [facility] Work Phone: Start: 01-29-2025 End: 01-31-2025 Evaluation and management of inpatient Milad W Haines DO Work Phone: [facility] 3 Comment on above: Colitis (Primary Dx) Start: 09-03-2024 End: 09-03-2024 ambulatory Torres [place] Facility:[facility] Start: 08-08-2024 ambulatory Torres [place] Facility :[facility] Start: 08-08-2024 ambulatory Torres Shelly Facility :[facility] [place] Start: 08-08-2024 End: 08-08-2024 ambulatory [place] Facility:[facility] Start: 07-28-2024 End: 07-28-2024 ambulatory Torres [place] Facility:[facility] [place] Start: 06-10-2024 ambulatory Torres [place] Facility :[facility] Start: 06-09-2024 End: 06-09-2024 ambulatory Samson [place] Facility:[facility] [place] Start: 06-09-2024 End: 06-09-2024 ambulatory Samson GROVE Facility:[facility] Start: 01-31-2024 End: 01-31-2024 Subsequent hospital visit by physician Rad External Film EF RAD EXTERNAL FILM VIRTUAL Comment on above: Arrived Start: 11-07-2023 End: 11-07-[address] Torres Bravo Work Phone: [facility] Work Phone: Start: 11-07-2023 End: 11-07-[address] Torres Bravo Work Phone: [facility] Work Phone: Start: 10-31-2023 End: 10-31-[address] Torres Bravo Work Phone: [facility] Work Phone: Start: 09-27-2023 End: 09-27-[address] Torres Bravo Work Phone: [facility] Work Phone: Start: 09-27-2023 End: 09-27-[address] Torres Bravo Work Phone: [facility] Work Phone: Start: 07-26-2023 End: 07-26-[address] Torres Bravo Work Phone: [facility] Work Phone: Start: 06-27-2023 End: 06-27-[address] Torres Bravo Work Phone: [facility]-Laboratory, Specimen Work Phone: Start: 02-27-2023 End: 02-27-2023 Encounter for other preprocedural examination Dr. Torres Bravo Work Phone: [facility] Start: 02-27-2023 End: 02-27-[address] Torres Bravo Work Phone: [facility] Work Phone: Start: 02-06-2023 End: 02-06-[address] Torres Bravo Work Phone: [facility] Work Phone: Start: 02-06-2023 End: 02-06-[address] Torres Bravo Work Phone: [facility]-Outpatient Bone Densitometry Start: 01-24-2023 End: 01-24-[address] Torres Bravo Work Phone: [facility] Start: 12-01-2022 Office consultation new/estab patient 80 min No PCP None LQ-Ruzlfanrigta-Ycofbab Work Phone: Start: 12-01-2022 Patient encounter procedure No PCP None [facility] Phone: Start: 12-01-2022 ambulatory MD ANGELA AL Facility:[facility] Start: 11-29-2022 End: 11-29-[address] Torres Bravo Work Phone: [facility] Start: 11-27-[address] Pedro Bravo Work Phone: [facility] Oncology Start: 11-22-2022 ambulatory Facility:[facility] Start: 11-21-2022 End: 11-21-[address] Torres Bravo Work Phone: [facility] Start: 11-16-[address] Issac Owens Facility:[facility] Start: 11-16-2022 End: 11-16-[address] Torres Bravo Work Phone: [facility] Internal Medicine Start: 11-06-2022 End: 11-06-[address] Torres Bravo Work Phone: [facility] Orthopaedic Specia Start: 11-06-2022 End: 11-06-[address] Torres Bravo Work Phone: [facility] Medicine Start: 10-25-2022 End: 10-25-[address] Kaleb Astorga Work Phone: [facility] Work Phone: Start: 10-25-2022 End: 10-25-[address] Kaleb Astorga Work Phone: [facility]-Laboratory Start: 10-24-2022 Chart Update No PCP None MG-Neurolo gy-[facility] [place] [address] Work Phone: Start: 10-09-2022 End: 10-09-[address] Kaleb Astorga Work Phone: [facility]-Laboratory, BIM Start: 10-05-[address] Kaleb Astorga Work Phone: [facility]-Physical Therapy Start: 10-03-2022 End: 10-03-[address] Kaleb Astorga Work Phone: [facility] Internal Medicine Start: 09-26-2022 Office outpatient ne w 45 minutes No PCP None NP-Zhpmpmaff-NWYFY [place] [facility] Work Phone: Start: 09-26-2022 Patient encounter procedure No PCP None [facility] [address] Work Phone: Start: 09-26-[address] Octavio meza [facility] Facility:[id number] Start: 08-29-2022 End: 08-29-2022 Home visit Laura Tim PT Work Phone: [facility] Comment on above: PT AGENCY DC W VISIT Start: 08-28-2022 End: 08-28-2022 Home visit Shannan Saldaña OT/L Work Phone: [facility] Comment on above: OT DISC DC W VISIT Start: 08-23-2022 End: 08-23-2022 Home visit Laura Tim PT Work Phone: [facility] Comment on above: PT REASSESSMENT Start: 08-22-2022 End: 08-22-2022 Home visit Nitza Elliott RAND/L Work Phone: [facility] Comment on above: RAND ROUTINE Start: 2022 End: 2022 Home visit Shannan Saldaña OT/L Work Phone: [facility] Comment on above: OT REASSESSMENT VISI T Start: 08-16-2022 End: 08-16-2022 Home visit Meli Sanchez CCC-MRI SPECIALIST Work Phone: [facility] Comment on above: MRI SPECIALIST DISC DC W VISIT Start: 08-14-2022 End: 08-14-2022 Home visit Nitza Lexi RAND/L Work Phone: [facility] Comment on above: RAND ROUTINE Start: 08-10-2022 End: 08-10-2022 Home visit Nitza Elliott RAND/L Work Phone: [facility] Comment on above: RAND ROUTINE Start: 08-09-2022 End: 08-09-2022 Home visit Suma Edwards RN Work Phone: [facility] Comment on above: SN DISC DC W VISIT DISTRICT RECRUITER ROUTINE Start: 08-08-2022 End: 08-08-2022 Home visit Nitza Elliott RAND/L Work Phone: [facility] Comment on above: RAND ROUTINE Start: 08-04-2022 End: 08-04-2022 Home visit Cassandra Guerra RAND/L Work Phone: [facility] Comment on above: RAND ROUTINE SN ROUTINE Start: 08-03-2022 End: 08-03-2022 Home visit Jose Guadalupe Mccurdy DISTRICT RECRUITER Work Phone: [facility] Comment on above: DISTRICT RECRUITER ROUTINE Start: 08-01-2022 End: 08-01-2022 Home visit Shannan Saldaña OT/L Work Phone: [facility] Comment on above: OT ROUTINE MRI SPECIALIST EVAL Start: 07-28-2022 End: 07-28-2022 Home visit Laura Tim PT Work Phone: [facility] Comment on above: PT EVAL Start: 07-27-2022 End: 07-27-2022 Home visit Kim England OT/L Work Phone: [facility] Comment on above: OT EVAL Start: 07-26-2022 Telephone encounter Kathy love RN Work Phone: [facility] Comment on above: Erroneous encounter- disregard Start: 07-26-2022 End: 07-26-2022 Home visit Kathy Vaughan RN Work Phone: [facility] Comment on above: SN SOC Start: 07-21-2022 Telephone encounter Margret zepeda PERSONNEL SUPERVISOR Work Phone: [facility] Comment on above: Home Care (Confirmat ion call) Start: 07-08-2022 End: 07-25-2022 ambulatory KALEB ASTORGA Facility:[facility] Start: 07-08-2022 End: 07-25-2022 Subsequent hospital visit by physician Geoff Garcia MD Work Phone: [facility] Comment on above: [R53.81] - Other mal aise Start: 07-04-2022 End: 07-08-2022 Evaluation and management of inpatient Octavio Jd Jaeger Jodee A [facility] Rm 635 A Start: 07-04-2022 End: 07-04-2022 Emergency department patient visit DO ALIE SOLIZERSEN Facility:[id number] Start: 01-09-2022 End: 01-09-[address] Kaleb Astorga Work Phone: [facility] Start: 01-07-2022 End: 01-07-[address] Kaleb Astorga Work Phone: [facility] Start: 10-13-2021 End: 10-13-[address] Kaleb Astorga Work Phone: [facility] Procedures Date Procedure Procedure Detail Performing Clinician Start: 02-18-2025 Study Interpretation of outside study Angela Orellana PATTERN MECHANIC-POPPED CORN OVEN ATTENDANT Work Phone: Start: 01-31-2025 Drug screen quantita tive vancomycin Ariana Blake MD Work Phone: Start: 01-31-2025 Basic metabolic pane l calcium total John Amin MD Work Phone: Start: 01-30-2025 Comprehensive metabo lic panel Ariana Blake MD Work Phone: Start: 01-30-2025 End: 01-30-2025 Culture bacterial blood aerobic w/id isolates Ariana Blake MD Work Phone: Start: 01-29-2025 Blood occult fecal h gb deter ia qual feces 1-3 Jennifer Escalera PATTERN MECHANIC-POPPED CORN OVEN ATTENDANT Work Phone: Start: 01-29-2025 End: 01-29-2025 Iadna-dna/rna gi pthgn multiplex probe tq 6-11 Jennifer Escalera PATTERN MECHANIC-POPPED CORN OVEN ATTENDANT Work Phone: Start: 01-29-2025 Ct abdomen & pelvis w/contrast material Jennifer Escalera PATTERN MECHANIC-POPPED CORN OVEN ATTENDANT Work Phone: Start: 01-29-2025 Comprehensive metabo lic panel Jennifer Escalera PATTERN MECHANIC-POPPED [employer]N OVEN ATTENDANT Work Phone: Start: 01-29-2025 Urinalysis complete W Reflex Culture panel - Urine Jennifer Escalera PATTERN MECHANIC-POPPED [employer]N OVEN ATTENDANT Work Phone: Start: 01-31-2024 Study Interpretation of outside study Angela Al MD Work Phone: Start: 09-27-[address] Torres Bravo Work Phone: Start: 02-06-2023 Dual energy X-ray absorptiometry Dr. Torres Bravo Work Phone: Start: 11-27-[address] of whole body Dr Faheem Bravo Work Phone: Start: 11-06-2022 Plain X-ray of shoulder Dr. Torres Bravo Work Phone: Start: 07-24-2022 Basic metabolic pane l calcium total Samson Galindo MD Work Phone: Start: 07-20-2022 Basic metabolic pane l calcium total Samson Galindo MD Work Phone: Start: 07-17-2022 Basic metabolic pane l calcium total Samson Galindo MD Work Phone: Start: 07-13-2022 Basic metabolic pane l calcium total Geoff Garcia MD Work Phone: Start: 07-10-2022 Blood count complete automated Geoff Garcia MD Work Phone: Start: 07-08-2022 Blood count complete auto&auto difrntl wbc Geoff Garcia MD Work Phone: Start: 07-05-2022 Lipid 1996 panel - S klaus or Plasma Rad Film Start: 07-04-2022 Antibody screen DO SUSAN UMANZOR Comment on above: Performed By: #### T +S #### [place] [address] Start: 06-04-2017 End: 06-04-2017 Urinalysis Amijesse Morrison AGRONOMY LOCATION MANAGER Start: 06-04-2017 End: 06-04-2017 Urinalysis complete panel - Urine Amijesse Morrison AGRONOMY LOCATION MANAGER Work Phone: Start: 04-18-[address] for gynecological examination (general) (routine) with abnormal findings Ami Wesson NP Start: 04-18-2017 End: 04-18-2017 Pelvic & Breast Exam (Medicare) Amijesse Morrison AGRONOMY LOCATION MANAGER Work Phone: Start: 04-18-2017 End: 04-18-2017 Urinalysis Laura Mg Start: 04-18-[address] for gynecological examination (general) (routine) with abnormal findings Laura Singh MD Start: 04-18-2017 End: 04-18-2017 Pelvic & Breast Exam (Medicare) Amijesse Morrison AGRONOMY LOCATION MANAGER Work Phone: Start: 09-14-2016 Mammography Margret C lark PERSONNEL SUPERVISOR Work Phone: Start: 07-29-2015 Colonoscopy Margret C lark PERSONNEL SUPERVISOR Work Phone: Arthroplasty of knee No PCP None Decompression of med johana nerve No PCP None H/O: section History of section Dr. Kaleb Astorga Work Phone: Comment on above: x2 History of decompres grupo of median nerve History of carpal tunnel surgery of right wrist Dr. Kaleb Astorga Work Phone: History of operative procedure on knee History of bilateral knee replacement Dr. Kaleb Astorga Work Phone: Plan of Treatment Date Care Activity Detail Author Start: 04-26-2033 DTaP/Tdap/Td Vaccine s (4 - Td or Tdap) DTaP/Tdap/Td Vaccines (4 - Td or Tdap) [facility] Start: 07-05-2027 Lipid panel Lipid Panel [facility] Start: 01-29-2026 Screening for malign ant neoplasm of colon [facility] Start: 07-29-2025 Colonoscopy COLONOSCOPY [facility] Start: 07-29-2025 COLORECTAL CANCER SCREENING COLORECTAL CANCER SCREENING [facility] Start: 07-29-2025 Screening for malign ant neoplasm of colon [facility] Start: 07-24-2025 DIABETES SCREEN DIABETES SCREEN [facility] Start: 07-20-2025 DIABETES SCREEN DIABETES SCREEN [facility] Start: 04-20-2025 Influenza vaccination Influenza Vacc ine (#1) [facility] Start: 2024 RSV High Risk: (Elde rly (60+) or Population) (1 - 1-dose 75+ series) RSV High Risk: (Elderly (60+) or Population) (1 - 1-dose 75+ series) [facility] Start: 04-20-2024 COVID-19 Vaccine ( season) COVID-19 Vaccine ( season) [facility] Start: 01-20-2024 Urine microalbumin profile DTAP,TDAP,TD (2 - Td or Tdap) [facility] Start: 08-28-2023 BP CONTROLLED (<130/80) BP CONTROLLE D (<130/80) [facility] Start: 2023 BP CONTROLLED (<130/80) BP CONTROLLE D (<130/80) [facility] Start: 07-05-2023 Diabetes mellitus screening Diabetes Screening [facility] Start: 05-30-2023 Medicare Annual Well ness Visit Medicare Annual Wellness Visit (AWV) [facility] Start: 04-20-2023 COVID-19 Vaccine () COVID-19 Vaccine () [facility] Start: 02-06-2023 Dual energy X-ray absorptiometry Dexa Bone Density Study [facility] Start: 02-06-2023 DXA Bone [Mass/Area] Bone density [facility] Start: 11-21-2022 Patient referral [facility] Work Phone: Start: 11-16-2022 Patient referral [facility] Work Phone: Start: 11-06-2022 Patient referral [facility] Work Phone: Start: 10-03-2022 Patient referral [facility] Work Phone: Start: 09-26-2022 Patient encounter procedure [facility] Start: 08-20-2022 ADVANCE DIRECTIVE DISCUSSION ADVANCE DIRECTIVE DISCUSSION [facility] Start: 08-20-2022 DEPRESSION ASSESSMENT DEPRESSION ASS ESSMENT [facility] Start: 07-04-2022 End: 07-05-2023 Albuterol 2.5 mg - Ipratropium 0.5 mg/ 3 mL Neb Soln 3 mL Inhalation Every 6 Hours ; (DUONEB)DOSE = 3 mL Inhalation Every 6 Hours via Nebulizer, PRN Wheezing Start: 04-Jul-2022 End: 04-Jul-2023 Ordered: 04-Jul-2022 Richard Melo Intent [facility] Start: 07-04-2022 Functional Risk Scre en Request for MRI SPECIALIST Eval/Tx [facility] Functional Risk Screen Request for MRI SPECIALIST Eval/Tx [facility] Start: [id number] Request Comments: Order entered from Admission Screens. [facility] Comment on above: Order entered from A dmission Screens. Start: 04-20-2022 Influenza vaccination INFLUENZA (#1) [facility] Start: 08-20-2021 ADVANCE DIRECTIVE DISCUSSION ADVANCE DIRECTIVE DISCUSSION [facility] Start: 08-20-2021 DEPRESSION ASSESSMENT DEPRESSION ASS ESSMENT [facility] Start: 06-22-2021 COVID-19 VACCINE (2 - Moderna series) COVID-19 VACCINE (2 - Moderna series) [facility] Start: 09-14-2017 Mammography MAMMOGRAM [facility] Start: 07-23-2017 LIPID SCREEN LIPID SCREEN [facility] Start: 06-04-2017 End: 06-04-2017 *CUUID - Urine DINORAH Culture - Identificatn *CUUID - Urine DINORAH Culture - Identificatn [facility] Start: 06-04-2017 End: 06-04-2017 Urinalysis complete panel - Urine *UAC- Urinalysis, Complete w/ Micro [facility] Start: 04-27-2017 End: 04-27-[address] [facility] Start: 04-27-2017 End: 04-27-2017 Urine culture, bacteria *CUUR - Culture, Urine ([place] Count) [facility] Start: 04-27-2017 End: 04-27-2017 Urine culture, bacteria *CUUR - Culture, Urine ([place] Count) [facility] Start: 04-18-2017 End: 04-18-2017 *CUUID - Urine DINORAH Culture - Identificatn *CUUID - Urine DINORAH Culture - Identificatn [facility] Start: 04-18-2017 End: 04-18-2017 D[address]A scan DEXA scan [facility] Start: 04-18-2017 End: 04-18-[address] [facility] Start: 04-18-2017 End: 04-18-2017 *CUUID - Urine DINORAH Culture - Identificatn *CUUID - Urine DINORAH Culture - Identificatn [facility] Start: 04-18-2017 End: 04-18-[address]A scan [facility] Start: 06-07-2015 Pneumococcal vaccination Pneum ococcal Vaccine (2 of 2 - PPSV23, PCV20, or PCV21) [facility] Start: 06-07-2015 Pneumococcal Vaccine : 65+ Years (2 of 2 - PPSV23 or PCV20) Pneumococcal Vaccine: 65+ Years (2 of 2 - PPSV23 or PCV20) [facility] Start: 04-08-2013 SHINGRIX VACCINE (2 of 3) SHINGRIX VACCINE (2 of 3) [facility] Start: 04-08-2013 Zoster Vaccines (2 of 3) Zoste r Vaccines (2 of 3) [facility] Start: 2009 Hepatitis B Vaccines (1 of 3 - Risk 3-dose series) Hepatitis B Vaccines (1 of 3 - Risk 3-dose series) [facility] Start: 2009 RSV patient s and/or patients aged 60+ years (1 - 1-dose 60+ series) RSV patients and/or patients aged 60+ years (1 - 1-dose 60+ series) [facility] Start: 1994 COLOGUARD (FIT-DNA) COLOGUARD (FIT-D NA) [facility] Start: [address] COLONOGRAPHY [facility] Start: 1994 FECAL OCCULT BLOOD FECAL OCCULT BLOO D [facility] Start: 1994 SIGMOIDOSCOPY SIGMOIDOSCOPY [facility] Start: 1989 Screening for malign ant neoplasm of breast Mammogram [facility] Start: 1968 Hepatitis A Vaccines (1 of 2 - Risk 2-dose series) Hepatitis A Vaccines (1 of 2 - Risk 2-dose series) [facility] Start: 1967 ANNUAL PCP TEAM PUBLIC RELATIONS SENIOR ASSOCIATE BALDOMERO DISEASE VISIT ANNUAL PCP TEAM CHRONIC DISEASE VISIT [facility] Start: 1967 BP CONTROLLED (<130/80) BP CONTROLLE D (<130/80) [facility] Start: 1967 HEPATITIS C SCREENING HEPATITIS C [facility] Start: 1967 Hepatitis C screening Hepatitis C [facility] Start: 1967 SPIROMETRY SPIROMETRY [facility] Start: 1955 PNEUMOCOCCAL: 65+ (1 - PCV) PNEUMOCOCCAL: 65+ (1 - PCV) [facility] Start: 02-15-1950 COVID-19 VACCINE (#1) COVID-19 VACCI NE (#1) [facility] Start: 1949 Medicare Annual Well ness Visit Medicare Annual Wellness Visit (AWV) [facility] Start: 1949 Screening for malign ant neoplasm of colon [facility] Start: 1949 Screening for osteoporosis Bone Density Scan [facility] Bacteria identified in Blood by Culture [facility] Work Phone: End: 02-05-2025 CBC panel - Blood by Automated count CBC Lab Routine Morning draw (Lab) for 1 Weeks starting 01/30/2025 until 02/05/2025, 2 completed [facility] Work Phone: Comment on above: Morning draw (Lab) f or 1 Weeks starting 01/30/2025 until 02/05/2025, 2 completed CBC W Auto Different ial panel - Blood [facility] Comprehensive metabo lic 2000 panel - Serum or Plasma [facility] Electrocardiogram, 12-lead PRN ACS symptoms Electrocardiogram, 12-lead PRN ACS symptoms ECG Routine As needed until discontinued starting 01/29/2025 [facility] Service Area Work Phone: Comment on above: As needed until disc ontinued starting 01/29/2025 Electrocardiogram, 12-lead PRN ACS symptoms Electrocardiogram, 12-lead PRN ACS symptoms ECG Routine As needed until discontinued starting 01/30/2025 [facility] Work Phone: Comment on above: As needed until disc ontinued starting 01/30/2025 End: 01-29-2025 Extra Urine Farris Tube Extra Urine [facility] Lab Timed Once for 1 Occurrences starting 01/29/2025 until 01/29/2025 [facility] Work Phone: Comment on above: Once for 1 Occurrenc es starting 01/29/2025 until 01/29/2025 Hemoglobin A1c/Hemoglobin.total in Blood [facility] Lipid 1996 panel - S klaus or Plasma [facility] End: 02-05-2025 Magnesium [Mass/volume] in Serum or Plasma Magnesium Lab Routine Morning draw (Lab) for 1 Weeks starting 01/30/2025 until 02/05/2025, 2 completed [facility] Work Phone: Comment on above: Morning draw (Lab) f or 1 Weeks starting 01/30/2025 until 02/05/2025, 2 completed Patient Education CARPAL%20TUNNE L%20SYNDR OME [facility] Patient referral [facility] Work Phone: PET CT of whole body [facility] End: 01-30-2025 Respiratory care eval and treat Respiratory care eval and treat Respiratory Care Routine Once for 1 Occurrences starting 01/30/2025 until 01/30/2025 [facility] Work Phone: Comment on above: Once for 1 Occurrenc es starting 01/30/2025 until 01/30/2025 SARS-CoV-2 (COVID-19 ) Ag [Presence] in Respiratory specimen by Rapid immunoassay [facility] End: 01-29-2025 Urinalysis complete W Reflex Culture panel - Urine [facility] Service Area Work Phone: Comment on above: STAT (Lab) for 1 Occ urrences starting 01/29/2025 until 01/29/2025 US Thyroid gland [facility] End: 02-01-2025 Vancomycin [Mass/volume] in Serum or Plasma Vancomycin Lab Routine Morning draw (Lab) for 1 Occurrences starting 02/01/2025 until 02/01/2025 [facility] Area Work Phone: Comment on above: Morning draw (Lab) f or 1 Occurrences starting 02/01/2025 until 02/01/2025 Vitamin B12 measurement [facility] Vitamin D, 25-hydrox y measurement [facility] Immunizations Immunization Date Immunization Notes Care Provider Marlin morrell 07-28-2024 Seasonal trivalent influenza vaccine, adjuvanted, preservative free Dr. Torres Bravo MD Work Phone: [facility] 07-28-2024 influenza virus vaccine, unspecified formulation Rad [facility] Work Phone: 07-26-2023 influenza, injectabl e, quadrivalent, preservative free Dr. Torres Bravo Work Phone: [facility] 04-26-2023 tetanus toxoid, redu ashley diphtheria toxoid, and acellular pertussis vaccine, adsorbed Dr. Torres Bravo Work Phone: [facility] 05-29-2022 Influenza, high dose seasonal Dr. Torres Bravo MD Work Phone: [facility] 05-29-2022 influenza, high dose seasonal, preservative-free Dr. Kaleb Astorga Work Phone: [facility] 05-29-2022 influenza, injectabl e, quadrivalent, preservative free Dr. Torres Bravo Work Phone: [facility] 05-29-2022 Influenza, Seasonal, Quadrivalent, Adjuvanted Rad [facility] Work Phone: 07-08-2021 Covid (Moderna) Dr. Kaleb crane Work Phone: [facility] 05-25-2021 Moderna SARS-CoV-2 Vaccination Rad [facility] Work Phone: 11-04-2020 Covid (Moderna) Dr. Kaleb crane Work Phone: [facility] 10-31-2020 Covid (Moderna) Dr. Torres cuadra Work Phone: [facility] 10-31-2020 Moderna COVID-19 Vac (Booster) 50 MCG/0.5ML Intramuscular Suspension No PCP None [facility] Comment on above: Series: 10-07-2020 Covid (Moderna) Dr. Kaleb crane Work Phone: [facility] 05-18-2020 Influenza High-Dose Quadrivalent Dr. Torres Bravo Work Phone: [facility] 05-18-2020 Influenza, high dose seasonal Dr. Torres Bravo MD Work Phone: [facility] 05-18-2020 influenza, high dose seasonal, preservative-free Dr. Kaleb Astorga Work Phone: [facility] 07-11-2019 Influenza, high dose seasonal Dr. Torres Bravo MD Work Phone: [facility] 07-11-2019 influenza, high dose seasonal, preservative-free Dr. Kaleb Astorga Work Phone: [facility] 04-23-2018 Influenza, high dose seasonal Dr. Torres Bravo MD Work Phone: [facility] 04-23-2018 influenza, high dose seasonal, preservative-free Dr. Kaleb Astorga Work Phone: [facility] 05-09-2017 influenza, injectabl e, quadrivalent, preservative free Dr. Torres Bravo Work Phone: [facility] 05-09-2017 influenza, seasonal, injectable Dr. Kaleb Astorga Work Phone: [facility] 04-12-2015 pneumococcal conjuga te vaccine, [address] Kaleb Astorga Work Phone: [facility] 07-02-2014 influenza, injectabl e, quadrivalent, preservative free Dr. Torres Bravo Work Phone: [facility] 07-02-2014 influenza, seasonal, injectable Dr. Kaleb Astorga Work Phone: [facility] 01-19-2014 tetanus toxoid, redu ashley diphtheria toxoid, and acellular pertussis vaccine, adsorbed Margret Nielsen LPN Work Phone: [facility] Work Phone: 08-20-2013 tetanus toxoid, redu ashley diphtheria toxoid, and acellular pertussis vaccine, adsorbed Dr. Kaleb Astorga Work Phone: [facility] 02-11-2013 zoster vaccine, live Nathanael Nielsen LPN Work Phone: [facility] Work Phone: 06-30-2011 influenza virus vaccine, unspecified formulation Margret Nielsen LPN Work Phone: [facility] Work Phone: 05-20-2009 influenza virus vaccine, unspecified formulation Margret Nielsen LPN Work Phone: [facility] 06-30-2008 influenza virus vaccine, unspecified formulation Margret Nielsen PERSONNEL SUPERVISOR Work Phone: [facility] Work Phone: Payers Date Payer Category Payer Self-pay [id number] 2021 Medicare [id number] 2021 Medicare (Managed Care) [employer] VALUE PLAN [id number] 2021 Unknown 2021 Private Health Insurance [id number] 2015 Private Health Insurance [id number] 2014 Medicare [id number] 1950 Unknown [id number] 2.16.840.1.425761.3.579.2. 1069 1950 Unknown [id number] 2.16.840.1.150090.3.579.2. 356 1949 Unknown [id number] 2.16.840.1.788766.3.579.2. 594 1949 Unknown [id number] 2.16.840.1.110405.3.579.2. 594 1949 Unknown [id number] 2.16.840.1.335916.3.579.2. 356 1949 Unknown [id number] 2.16.840.1.244913.3.579.2. 356 1949 Unknown [id number] 2.16.840.1.315571.3.579.2. 356 1949 Unknown [id number] 2.16.840.1.410306.3.579.2. 1243 1949 Unknown [id number] 2.16.840.1.556401.3.579.2. 159 1949 Unknown [id number] 2.16.840.1.261531.3.579.2. 1245 Private Health Insurance Self-pay [id number] Unknown [id number] 2.16.840.1.699710.3.579.2. 462 Unknown [id number] 2.16.840.1.112490.3.579.2. 462 Unknown [id number] 2.16.840.1.717076.3.579.2. 462 Unknown [id number] 2.16.840.1.241353.3.579.2. 462 Unknown [id number] 2.16.840.1.920560.3.579.2. 462 Unknown [id number] 2.16.840.1.349387.3.579.2. 462 Unknown [id number] 2.16.840.1.180699.3.579.2. 462 Unknown [id number] 2.16.840.1.395313.3.579.2. 462 Unknown [id number] 2.16.840.1.594503.3.579.2. 462 Unknown [id number] 2.16.840.1.621756.3.579.2. 462 Unknown [id number] 2.16.840.1.422614.3.579.2. 462 Social History Date Type Detail Facility Start: 01-07-2022 End: 11-07-2023 Tobacco smoking status NHIS Unknown if ever smoked [facility] Start: 1950 Sex Assigned At Female [facility] Start: 01-19-2014 End: 01-30-2025 Tobacco smoking status NHIS Never smoked tobacco [facility] Start: 01-19-2014 End: 01-30-2025 Tobacco use and exposure Smokeless tobacco non-user [facility] Start: 04-05-2022 Alcohol intake Current drinke r of alcohol (finding) [facility] Start: 06-08-2015 Alcohol Comment Seldom [facility] Start: 1950 Sex Assigned At Not on file [facility] Start: 01-30-2025 Gender identity [facility] Start: 12-30-2023 End: 01-09-2024 Exposure to SARS-CoV-2 (event) Not sure [facility] Start: 01-30-2025 Alcoholic beverage intake Ex-drinker (finding) [facility] Work Phone: Start: 01-30-2025 History of Social function [facility] Work Phone: Has the [place], gas, oil, or water [employer] BAG threatened to shut off services in your home in past 12Mo No [facility] Work Phone: How often to you hav e a drink containing alcohol? Never [facility] Work Phone: How many standard drinks containing alcohol do you have on a typical day? Patient does not drink [facility] Work Phone: (I/We) worried whether (my/our) food would run out before (I/we) got money to buy more. Never true [facility] Work Phone: NEGATED: Highlighted rowStart: ADRIANF History of tobacco use Passive smoker [facility] Work Phone: Medical Equipment Procedure Code Equipment Code Equipment Origin al Text Equipment Identifier Dates Semaj Bn Smplx Hv Gentamicin Fd - [id number] Start: 01-19-2015 Semaj Bn Smplx Hv Fd - [id number] Start: 03-07-2016 Comment on above: Description: simplex HV Ins Tib 3 9mm Kn X3 Ps Trthln - [id number] Start: 01-19-2015 Insert Triathlon 4 X3 11mm Tibial Bearing Posterior Stabilize Knee - [id number] Start: 03-07-2016 Comment on above: Description: TRIATHL ON X3 TIBIAL BEARING INSERT - PS Comp Pat 10mm 35 mm Asym Trthln - [id number] Start: 01-19-2015 Component Triathlon 35mm X3 10mm Patellar Asymmetric Knee Superior Inferior - [id number] Start: 03-07-2016 Comment on above: Description: TRIATHL ON X3 ASYMMETRIC PATELLA Comp Fem 4 Lt Kn Ps Semaj Trthln - [id number] Start: 01-19-2015 Baseplt Tib Trth ln 3 Kn Semaj - [id number] Start: 01-19-2015 Baseplate Triathlon 4 Tibial Primary Cement Knee - [id number] Start: 03-07-2016 Comment on above: Description: TRIATHL ON PRIMARY TIBIAL BASEPLATE Functional Status Date Assessment Result Facility 01-30-2025 Total score [AUDIT-C] 0 01/31/20 25 12:39 AM Jodi Amin, SISSY [facility] Work Phone: 01-30-2025 Patient Health Questionnaire 2 item (PHQ-2) [Reported] [facility] Work Phone: 01-29-2025 [place] - suicide s everity rating scale screener - recent [C-SSRS] [facility] Work Phone: Bowels: fully co ntinent (finding) [facility] Work Phone: Mental Status Date Assessment Result Facility 07-05-2022 Cognitive functions 32115:[id number] [facility] Clinical Notes 07-29-2015 to 02-09-2025 Note Date & Type Note Facility 02-09-2025 Evaluation note Diagnosis Onset Date Resolution Bleeding per rectum acute February 09, 2025 2:28pm GERD (gastroesophageal reflux disease) chronic February 09, 2025 2:28pm Multiple thyroid nodules chronic February 18, 2025 9:58am Murmur, cardiac chronic February 18, 2025 9:58am Cerebrovascular accident (CVA) of right basal ganglia noneactive February 18, 2025 9:58am Vitamin deficiency noneactive February 182024 9:58am Moderate persistent asthma in adult without complication noneactive February 18, 2025 9:58am Osteopenia noneactive February 18, 2025 9:58am Essential hypertension noneactive Ju ly 2024 9:58am Prediabetes noneactive February 18 9:58am Anxiety and depression noneactive Ju ly 2024 9:58am [facility] Work Phone: 1(438) 678-680606-14-2025 Hospital Discharge instructions* Discharge Instructions* Ann Siegel RN - 01/31/2025 1:17 PM EDT Images from the original note were not included. Colitis - Discharge instructions The Basics Written by the doctors and editors at [facility] What are discharge instructions? Discharge instructions are information about how to take care of yourself after getting medical care for a health problem. What is colitis? Colitis is inflammation or swelling of the lining of the colon. The colon is also called the large intestine (figure 1). There are many types of colitis. How do I care for myself at home? Ask the doctor or nurse what you should do when you go home. Make sure that you understand exactly what you need to do to care for yourself. Ask questions if there is anything you do not understand. You should also do the following: ? Take all of your medicines exactly as your doctor tells you to. ? Follow the special diet that your doctor recommended, if they gave you one. ? Try to eat a little food. Good choices are potatoes, noodles, rice, oatmeal, crackers, bananas, soup, and boiled vegetables. ? Drink plenty of water, unless your doctor told you otherwise. This will help replace fluids lost from diarrhea or vomiting. Good options are water and oral electrolyte solutions that you can buy at most supermarkets or pharmacies. ? If your colitis was related to an infection: ? Wash your hands with soap and water before eating or preparing food, and after using the toilet or changing diapers. ? Stay home until you feel better and your doctor says that you are no longer contagious. ? Practice food safety to lower the risk of getting an infection again. This includes cooking all food fully, washing fruits and vegetables before eating them, and cleaning all your cooking tools andsurfaces well. What follow-up care do I need? Your doctor or nurse will tell you if you need to make a follow-up appointment. If so, make sure that you know when and where to go. When should I call the doctor? Call for advice if: ? You have a fever of 100.4 F (38 C) or higher that lasts for several days or keeps coming back. ? You have signs of fluid loss, such as: ? Dark-colored urine ? Dry mouth ? Muscle cramps ? Lack of energy ? Feeling lightheaded when you get up ? Not needing to urinate for more than 8 hours ? Feeling very lightheaded or like you are going to pass out ? Feeling weak, like you are going to fall ? You have new or increasing bloody bowel movements. ? You have very bad belly pain. ? You have diarrhea that lasts more than a few days. ? You have trouble keeping fluids down, or you keep vomiting. All topics are updated as new evidence becomes available and our peer review process is complete. This topic retrieved from [employer] on: Oct 20, 2024. Topic 719209 Version 2.0 Release: 33.1.2 - C33.61 2024 [employer]. and/or its affiliates. All rights reserved. figure 1: Colon and rectum documented in this [facility] Work Phone: 1(122) 218-637806-14-2025 Plan of care note* Care Plan - Bell Dexter RN - 01/31/2025 12:38 PM EDT The patient's goals for the shift include no bleeding The clinical goals for the shift include no blood in stool Problem: Pain - Adult Goal: Verbalizes/displays adequate comfort level or baseline comfort level Outcome: Progressing Problem: Safety - Adult Goal: Free from fall injury Outcome: Progressing Problem: Discharge Planning Goal: Discharge to home or other facility with appropriate resources Outcome: Progressing [facility]06-14-2025 Miscellaneous Notes* Care Plan - Bell Dexter RN - 01/31/2025 12:38 PM EDT The patient's goals for the shift include no bleeding The clinical goals for the shift include no blood in stool Problem: Pain - Adult Goal: Verbalizes/displays adequate comfort level or baseline comfort level Outcome: Progressing Problem: Safety - Adult Goal: Free from fall injury Outcome: Progressing Problem: Discharge Planning Goal: Discharge to home or other facility with appropriate resources Outcome: Progressing * Care Plan - Ronda Paredes RN - 01/30/2025 5:14 PM EDT Problem: Pain - Adult Goal: Verbalizes/displays adequate comfort level or baseline comfort level Outcome: Progressing Problem: Safety - Adult Goal: Free from fall injury Outcome: Progressing Problem: Discharge Planning Goal: Discharge to home or other facility with appropriate resources Outcome: Progressing Problem: Chronic Conditions and Co-morbidities Goal: Patient's chronic conditions and co-morbidity symptoms are monitored and maintained or improved Outcome: Progressing Problem: Nutrition Goal: Nutrient intake appropriate for maintaining nutritional needs Outcome: Progressing Problem: Pain Goal: Takes deep breaths with improved pain control throughout the shift Outcome: Progressing Goal: Turns in bed with improved pain control throughout the shift Outcome: Progressing Goal: Walks with improved pain control throughout the shift Outcome: Progressing Goal: Performs ADL's with improved pain control throughout shift Outcome: Progressing Goal: Participates in PT with improved pain control throughout the shift Outcome: Progressing Goal: Free from opioid side effects throughout the shift Outcome: Progressing Goal: Free from acute confusion related to pain meds throughout the shift Outcome: Progressing Problem: Fall/Injury Goal: Not fall by end of shift Outcome: Progressing Goal: Be free from injury by end of the shift Outcome: Progressing Goal: Verbalize understanding of personal risk factors for fall in the hospital Outcome: Progressing Goal: Verbalize understanding of risk factor reduction measures to prevent injury from fall in the home Outcome: Progressing Goal: Use assistive devices by end of the shift Outcome: Progressing Goal: Pace activities to prevent fatigue by end of the shift Outcome: Progressing The patient's goals for the shift include no bleeding The clinical goals for the shift include no bloody stool Over the shift, the patient did make progress toward the following goals. * Significant Event - John Amin MD - 01/30/2025 2:10 PM EDT Patient was seen admitted overnight. Reviewed chart and agree with assessment plan documented in this [facility] Work Phone: 1(106) 764-768606-14-2025 Hospital course Narrative* John Amin MD - 01/31/2025 12:21 PM EDT Discharge Diagnosis Abdominal pain Issues Requiring Follow-Up Gastroenterology Discharge Meds Medication List START taking these medications levoFLOXacin 500 mg tablet; Commonly known as: Levaquin; Take 1 tablet (500 mg) by mouth once daily for 7 days. metroNIDAZOLE 500 mg tablet; Commonly known as: Flagyl; Take 1 tablet (500 mg) by mouth 3 times a day for 10 days. CHANGE how you take these medications carvedilol 6.25 mg tablet; Commonly known as: Coreg; What changed: Another medication with the same name was removed. Continue taking this medication, and follow the directions you see here. CONTINUE taking these medications acetaminophen 325 mg tablet; Commonly known as: Tylenol Advair Diskus 250-50 mcg/dose diskus inhaler; Generic drug: fluticasone propion-salmeteroL albuterol 90 mcg/actuation inhaler azelastine 0.05 % ophthalmic solution; Commonly known as: Optivar cetirizine 10 mg tablet; Commonly known as: ZyrTEC cholecalciferol 125 mcg (5,000 units) capsule; Commonly known as: Vitamin D-3 * Effexor XR 75 mg 24 hr capsule; Generic drug: venlafaxine XR * venlafaxine XR 37.5 mg 24 hr capsule; Commonly known as: Effexor-XR famotidine 20 mg tablet; Commonly known as: Pepcid lisinopril 40 mg tablet lovastatin 10 mg tablet; Commonly known as: Mevacor omeprazole 20 mg tablet,delayed release (DR/EC) EC tablet; Commonly known as: PriLOSEC valACYclovir 1 gram tablet; Commonly known as: Valtrex * This list has 2 medication(s) that are the same as other medications prescribed for you. Read the directions carefully, and ask your doctor or other care provider to review them with you. Test Results Pending At Discharge Pending Labs Order Current Status Extra Urine Farris Tube Collected (01/29/25 2100) Urinalysis with Reflex Culture and Microscopic In process Blood Culture Preliminary result Blood Culture Preliminary result Hospital Course 74-year-old female with #Infectious colitis FOBT positive, hemoglobin stable No active bleeding Continue fluids as well Zosyn IV and vancomycin initially Elevated procalcitonin level No respiratory symptoms CT abdomen pelvis with colitis Patient improved gradually and tolerating diet without any discomfort. Denies nausea vomiting diarrhea or bleeding. No fever chills in last 24 hours Patient to follow gastroenterology outpatient. She is medically stable and feels ready to go home. Encourage nutrition #Hypertension, hyperlipidemia continued meds #Asthma, not in exacerbation Continue inhalers as necessary Discharge home on Levaquin and Flagyl to complete the course. Continued home meds Patient on Coreg, lisinopril, pravastatin GI prophylaxis addressed On psych meds for depression Pertinent Physical Exam At Time of Discharge Physical Exam General Appearance: Skin: skin color pink, warm, and dry; no suspicious rashes or lesions Eyes : PERRL, EOM's intact ENT: mucous membranes pink and moist Neck: normocephalic Respiratory: lungs clear to auscultation anteriorly; no wheezing, rhonchi, or crackles. Heart: regular rate and rhythm. Abdomen: Nondistended, positive bowel sounds x4, soft, nontender Extremities: no edema Peripheral pulses: normal x4 extremities Neuro: alert, coherent and conversant, no focal motor deficits Time to dc > 35 minutes John Amin MD [facility] Phone: 1(276) 806-639206-14-2025 History of Present illness Narrative* Omer Bray, SohailD - 01/31/2025 11:25 AM EDT Vancomycin Dosing by Pharmacy- FOLLOW UP Yaneli Basurto is a 74 y.o. year old female who Pharmacy has been consulted for vancomycin dosing for other sepsis. Based on the patient's indication and renal status this patient is being dosed based on a goal AUC of 400-600. Renal function is currently stable. Current vancomycin dose: 750 mg given every 12 hours Estimated vancomycin AUC on current dose: 509 mg/L.hr Visit Vitals BP 114/66 Pulse 74 Temp 36.1 C (97 F) Resp 18 Lab Results Component Value Date CREATININE 0.96 01/31/2025 CREATININE 0.87 01/30/2025 CREATININE 0.97 01/29/2025 CREATININE 0.80 01/09/2024 Patient weight is as follows: Vitals: 01/30/25 0023 Weight: 82.7 kg (182 lb 5.1 oz) Cultures: No results found for the encounter in last 14 days. I/O last 3 completed shifts: In: 2251.7 (27.2 mL/kg) [P.O.:80; I.V.:971.7 (11.7 mL/kg); IV Piggyback:1200] Out: - (0 mL/kg) Weight: 82.7 kg I/O during current shift: No intake/output data recorded. Temp (24hrs), Av.5 C (97.7 F), Min:36.1 C (97 F), Max:36.8 C (98.2 F) Assessment/Plan Within goal AUC range. Continue current vancomycin regimen. This dosing regimen is predicted by [employer] to result in the following pharmacokinetic parameters: Regimen: 750 mg IV every 12 hours. Start time: 12:20 on 01/31/2025 Exposure target: AUC24 (range) 400-600 mg/L.hr FGA77-25: 433 mg/L.hr AUC24,ss: 509 mg/L.hr Probability of AUC24 > 400: 90 % Ctrough,ss: 17.4 mg/L Probability of Ctrough,ss > 20: 29 % The next level will be obtained on 02/01 at 0500. May be obtained sooner if clinically indicated. Will continue to monitor renal function daily while on vancomycin and order serum creatinine at least every 48 hours if not already ordered. Follow for continued vancomycin needs, clinical response, and signs/symptoms of toxicity. Sohail ThakurD * Cassy Munoz RN - 01/30/2025 11:59 AM EDT 01/30/25 1159 Discharge Planning Living Arrangements Children;Spouse/significant other Support Systems Spouse/significant other;Children Assistance Needed none Type of Residence Private residence Number of Stairs to Enter Residence 2 Number of Stairs Within Residence 0 (does not use stairs) Do you have animals or pets at home? Yes Type of Animals or Pets 4 dogs Who is requesting discharge planning? Provider Home or Post Acute Services None Expected Discharge Disposition Home Does the patient need discharge transport arranged? No Financial Resource Strain How hard is it for you to pay for the very basics like food, housing, medical care, and heating? Not hard Housing Stability In the last 12 months, was there a time when you were not able to pay the mortgage or rent on time?N In the past 12 months, how many times have you moved where you were living? 0 At any time in the past 12 months, were you homeless or living in a group home (including now)? N Transportation Needs In the past 12 months, has lack of transportation kept you from medical appointments or from getting medications? no In the past 12 months, has lack of transportation kept you from meetings, work, or from getting things needed for daily living? No Stroke Family Assessment Stroke Family Assessment Needed No Intensity of Service Intensity of Service 0-30 min Met with pt at the bedside and verified address, phone number and emergency contact information. PCP is Shelly last seen in May of 2024 and preferred pharmacy is [facility], denies issues obtaining or affording medications and takes as ordered. Pt is independent, lives at home with herhusband, daughter and 2 grand daughters and feels safe. Pt denies all needs at this time and plans to return home as before upon being medically cleared. [facility] . ADOD 24- 48hrs. Care Transitions to follow. Cassy Munoz BSN/RN-TCC documented in this [facility] Work Phone: 1(161) 917-120006-13-2025 Plan of care note* Care Plan - Ronda Paredes RN - 01/30/2025 5:14 PM EDT Problem: Pain - Adult Goal: Verbalizes/displays adequate comfort level or baseline comfort level Outcome: Progressing Problem: Safety - Adult Goal: Free from fall injury Outcome: Progressing Problem: Discharge Planning Goal: Discharge to home or other facility with appropriate resources Outcome: Progressing Problem: Chronic Conditions and Co-morbidities Goal: Patient's chronic conditions and co-morbidity symptoms are monitored and maintained or improved Outcome: Progressing Problem: Nutrition Goal: Nutrient intake appropriate for maintaining nutritional needs Outcome: Progressing Problem: Pain Goal: Takes deep breaths with improved pain control throughout the shift Outcome: Progressing Goal: Turns in bed with improved pain control throughout the shift Outcome: Progressing Goal: Walks with improved pain control throughout the shift Outcome: Progressing Goal: Performs ADL's with improved pain control throughout shift Outcome: Progressing Goal: Participates in PT with improved pain control throughout the shift Outcome: Progressing Goal: Free from opioid side effects throughout the shift Outcome: Progressing Goal: Free from acute confusion related to pain meds throughout the shift Outcome: Progressing Problem: Fall/Injury Goal: Not fall by end of shift Outcome: Progressing Goal: Be free from injury by end of the shift Outcome: Progressing Goal: Verbalize understanding of personal risk factors for fall in the hospital Outcome: Progressing Goal: Verbalize understanding of risk factor reduction measures to prevent injury from fall in the home Outcome: Progressing Goal: Use assistive devices by end of the shift Outcome: Progressing Goal: Pace activities to prevent fatigue by end of the shift Outcome: Progressing The patient's goals for the shift include no bleeding The clinical goals for the shift include no bloody stool Over the shift, the patient did make progress toward the following goals. 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 Reviewed chart and agree with assessment plan [facility] Work Phone: 1(136) 143-942906-13-2025 Consult note* Bianca García, PharmD - 01/30/2025 1:01 AM EDTAssociated Order(s): PHARMACY TO DOSE VANCO Vancomycin Dosing by Pharmacy- INITIAL Yaneli Basurto is a 74 y.o. year old female who Pharmacy has been consulted for vancomycin dosing for other (abdominal infection). Based on the patient's indication and renal status this patient willbe dosed based on a goal AUC of 400-600. Renal function is currently stable. Visit Vitals BP (!) 173/92 (BP Location: Left arm, Patient Position: Lying) Pulse (!) 117 Temp 36.6 C (97.9 F) (Temporal) Resp 20 Lab Results Component Value Date CREATININE 0.97 01/29/2025 CREATININE 0.80 01/09/2024 CREATININE 0.77 05/28/2023 CREATININE 1.23 (H) 07/07/2022 CREATININE 1.04 07/06/2022 CREATININE 0.81 07/05/2022 CREATININE 0.92 07/04/2022 Patient weight is as follows: Vitals: 01/30/25 0023 Weight: 82.7 kg (182 lb 5.1 oz) Cultures: No results found for the encounter in last 14 days. No intake/output data recorded. I/O during current shift: I/O this shift: In: 1000 [IV Piggyback:1000] Out: - Temp (24hrs), Av.6 C (97.9 F), Min:36.6 C (97.9 F), Max:36.6 C (97.9 F) Assessment/Plan Patient will be given a loading dose of 1250 mg. Will initiate vancomycin maintenance, 750 mg every 12 hours. This dosing regimen is predicted by [employer]ft[employer] to result in the following pharmacokinetic parameters: Loading dose: 1250 mg at 01:30 01/30/2025. Regimen: 750 mg IV every 12 hours. Start time: 13:30 on 01/30/2025 Exposure target: AUC24 (range) 400-600 mg/L.hr [id number]: 436 mg/L.hr AUC24,ss: 529 mg/L.hr Probability of AUC24 > 400: 78 % Ctrough,ss: 18.1 mg/L Probability of Ctrough,ss > 20: 41 % Follow-up level will be ordered on 01/31 at 1000 unless clinically indicated sooner. Will continue to monitor renal function daily while on vancomycin and order serum creatinine at least every 48 hours if not already ordered. Follow for continued vancomycin needs, clinical response, and signs/symptoms of toxicity. BIANCA GARCÍA PharmD [facility]06-13-2025 Consult note* Bianca García PharmD - 01/30/2025 1:01 AM EDTAssociated Order(s): PHARMACY TO DOSE VANCO Vancomycin Dosing by Pharmacy- INITIAL Yaneli Basurto is a 74 y.o. year old female who Pharmacy has been consulted for vancomycin dosing for other (abdominal infection). Based on the patient's indication and renal status this patient willbe dosed based on a goal AUC of 400-600. Renal function is currently stable. Visit Vitals BP (!) 173/92 (BP Location: Left arm, Patient Position: Lying) Pulse (!) 117 Temp 36.6 C (97.9 F) (Temporal) Resp 20 Lab Results Component Value Date CREATININE 0.97 01/29/2025 CREATININE 0.80 01/09/2024 CREATININE 0.77 05/28/2023 CREATININE 1.23 (H) 07/07/2022 CREATININE 1.04 07/06/2022 CREATININE 0.81 07/05/2022 CREATININE 0.92 07/04/2022 Patient weight is as follows: Vitals: 01/30/25 0023 Weight: 82.7 kg (182 lb 5.1 oz) Cultures: No results found for the encounter in last 14 days. No intake/output data recorded. I/O during current shift: I/O this shift: In: 1000 [IV Piggyback:1000] Out: - Temp (24hrs), Av.6 C (97.9 F), Min:36.6 C (97.9 F), Max:36.6 C (97.9 F) Assessment/Plan Patient will be given a loading dose of 1250 mg. Will initiate vancomycin maintenance, 750 mg every 12 hours. This dosing regimen is predicted by GyftRx to result in the following pharmacokinetic parameters: Loading dose: 1250 mg at 01:30 01/30/2025. Regimen: 750 mg IV every 12 hours. Start time: 13:30 on 01/30/2025 Exposure target: AUC24 (range) 400-600 mg/L.hr [id number]: 436 mg/L.hr AUC24,ss: 529 mg/L.hr Probability of AUC24 > 400: 78 % Ctrough,ss: 18.1 mg/L Probability of Ctrough,ss > 20: 41 % Follow-up level will be ordered on 01/31 at 1000 unless clinically indicated sooner. Will continue to monitor renal function daily while on vancomycin and order serum creatinine at least every 48 hours if not already ordered. Follow for continued vancomycin needs, clinical response, and signs/symptoms of toxicity. Sohail [facility]OS[facility]ID [facility] Phone: [phone]) 665-213506-13-2025 History and physical note* Ariana Blake MD - 01/30/2025 12:15 AM EDT History Of Present Illness Yaneli Basurto is a 74 y.o. female presenting with lower abdominal pain, bloody stool. States has not had a bowel movement for 3 to 4 days until today. This is normal for her. She denies straining for her stool this morning. Had several episodes of diarrhea which then turned bloody this afternoon. States she has had about 10 episodes of bloody stool since. Pain in her lower abdomen is mild. States had a low-grade fever of 99.8 at home. States she did not take any stool softeners or laxatives prior to today. On arrival, pt is tachycardic. She is afebrile here, though reportedly has had fevers at home. She is hypertensive as well/.. WBC elevated 14.9. UA negative FOBT positive; However Hg stable at 13. CMP unremarkable. Chief Complaint Patient presents with Abdominal Pain Black or Bloody Stool Pt states she has had approximately 10 episodes of bloody stool with diffuse mild abdominal pain, alow grade fever at home. HPI obtained from pt. Notes from ED physician and nurse reviewed. Case discussed with attending ED physician. Past Medical History Medical History[1] Surgical History Surgical History[2] Recent Surgeries in Hospitalist No cases to display Surgical History[3] Social History Social History Substance and Sexual Activity Alcohol Use Not on file Social History Substance and Sexual Activity Drug Use Not on file Social History Substance and Sexual Activity Sexual Activity Not on file Tobacco Use History[4] Food Insecurity: Not on file Financial Resource Strain: Not on file Intimate Partner Violence: Not on file Transportation Needs: Not on file Family History Family History[5] Allergies RX Allergies[6] Allergies[7] Physical Exam Physical Exam GENERAL: Vitals noted, no distress. Alert and oriented x 3. Non-toxic. EENT: TMs clear. Posterior oropharynx unremarkable. EOMI, no nystagmus noted. NECK: Supple. No masses. No midline tenderness. No meningeal signs. CARDIAC: Regular rate, rhythm. No murmurs rubs or gallops. No JVD. PULMONARY: Lungs clear and equal bilaterally. No wheezes rales or rhonchi. No respiratory distress. ABDOMEN: Soft, nondistended, and mildly tender in the left upper quadrant. No peritoneal signs. Bowel sounds are present and normoactive in all 4 quadrants. No pulsatile masses. : Rectal exam with female RN Edmundo at the bedside shows a rey sized partially thrombosed externalhemorrhoid at the 6 oclock position and a smaller flat external hemorrhoid at the 3 oclock position. No active bleeding or tenderness noted. EXTREMITIES: No peripheral edema. SKIN: No rash. Warm, dry, and intact. NEURO: No focal neurologic deficits. Last Recorded Vitals Visit Vitals BP 161/77 Pulse (!) 105 Temp 36.6 C (97.9 F) Resp 18 Visit Vitals BP 161/77 Pulse (!) 105 Temp 36.6 C (97.9 F) Resp 18 Ht 1.6 m (5' 3) Wt 79.4 kg (175 lb) SpO2 96% BMI 31.00 kg/m BSA 1.88 m Relevant Results Results for orders placed or performed during the hospital encounter of 01/29/25 (from the past 24 hours) Urinalysis with Reflex Culture and Microscopic Result Value Ref Range Color, Urine Yellow Light-Yellow, Yellow, Dark-Yellow Appearance, Urine Turbid (N) Clear Specific [place], Urine 1.020 1.005 - 1.035 pH, Urine 6.0 5.0, 5.5, 6.0, 6.5, 7.0, 7.5, 8.0 Protein, Urine 20 (TRACE) NEGATIVE, 10 (TRACE), 20 (TRACE) mg/dL Glucose, Urine Normal Normal mg/dL Blood, Urine NEGATIVE NEGATIVE mg/dL Ketones, Urine NEGATIVE NEGATIVE mg/dL Bilirubin, Urine NEGATIVE NEGATIVE mg/dL Urobilinogen, Urine Normal Normal mg/dL Nitrite, Urine NEGATIVE NEGATIVE Leukocyte Esterase, Urine NEGATIVE NEGATIVE Urinalysis Microscopic Result Value Ref Range WBC, Urine 1-5 1-5, NONE /HPF RBC, Urine 3-5 NONE, 1-2, 3-5 /HPF Mucus, Urine FEW Reference range not established. /LPF Lipase Result Value Ref Range Lipase 27 9 - 82 U/L Lactate Result Value Ref Range Lactate 1.7 0.4 - 2.0 mmol/L Comprehensive Metabolic Panel Result Value Ref Range Glucose 129 (H) 74 - 99 mg/dL Sodium 136 136 - 145 mmol/L Potassium 4.2 3.5 - 5.3 mmol/L Chloride 102 98 - 107 mmol/L Bicarbonate 25 21 - 32 mmol/L Anion Gap 13 10 - 20 mmol/L Urea Nitrogen 18 6 - 23 mg/dL Creatinine 0.97 0.50 - 1.05 mg/dL eGFR 61 >60 mL/min/1.73m*2 Calcium 9.9 8.6 - 10.3 mg/dL Albumin 4.4 3.4 - 5.0 g/dL Alkaline Phosphatase 84 33 - 136 U/L Total Protein 7.3 6.4 - 8.2 g/dL AST 29 9 - 39 U/L Bilirubin, Total 0.7 0.0 - 1.2 mg/dL ALT 26 7 - 45 U/L CBC and Auto Differential Result Value Ref Range WBC 14.9 (H) 4.4 - 11.3 x10*3/uL nRBC 0.0 0.0 - 0.0 /100 WBCs RBC 4.65 4.00 - 5.20 x10*6/uL Hemoglobin 13.9 12.0 - 16.0 g/dL Hematocrit 42.9 36.0 - 46.0 % MCV 92 80 - 100 fL MCH 29.9 26.0 - 34.0 pg MCHC 32.4 32.0 - 36.0 g/dL RDW 12.5 11.5 - 14.5 % Platelets 291 150 - 450 x10*3/uL Neutrophils % 82.6 40.0 - 80.0 % Immature Granulocytes %, Automated 0.2 0.0 - 0.9 % Lymphocytes % 9.6 13.0 - 44.0 % Monocytes % 7.1 2.0 - 10.0 % Eosinophils % 0.2 0.0 - 6.0 % Basophils % 0.3 0.0 - 2.0 % Neutrophils Absolute 12.29 (H) 1.60 - 5.50 x10*3/uL Immature Granulocytes Absolute, Automated 0.03 0.00 - 0.50 x10*3/uL Lymphocytes Absolute 1.42 0.80 - 3.00 x10*3/uL Monocytes Absolute 1.05 (H) 0.05 - 0.80 x10*3/uL Eosinophils Absolute 0.03 0.00 - 0.40 x10*3/uL Basophils Absolute 0.04 0.00 - 0.10 x10*3/uL Fecal Occult Blood Immunoassay Specimen: Stool Result Value Ref Range Fecal Occult Blood Immunoassay Positive (A) Negative Imaging CT abdomen pelvis w IV contrast Result Date: 01/29/2025 1.Moderate bowel wall thickening left upper descending colon and a portion of transverse colon. Etiology such as ischemic colitis, infectious or inflammatory colitis would be within differential. 2.Hepatic steatosis. 3.Right ovarian cyst. Signed by Alie Johns, DO Cardiology, Vascular, and Other Imaging No other imaging results found for the past 2 days I personally reviewed and interpreted the above results, multiple of which contributed to my medical making decisions. Assessment/Plan Infectious Colitis Sepsis secondary to above -FOBT+, monitor Hg -continue vanc/zosyn -IVF -blood cultures ordered -stool culture pending HTN -continue home regimen -PRNs ordered Asthma -not in exacerbation -duoneb, budesonide, formotorol Fluids: NS 100/h Nutrition: advance as tolerated Bowel prophylaxis: DVT prophylaxis: SCDs, will avoid blood thinners for now given possible GI bleed Ariana Blake MD [1] Past Medical History: Diagnosis Date Anxiety Asthma (HHS-HCC) CVA (cerebral vascular accident) (Multi) Depression Essential hypertension GERD (gastroesophageal reflux disease) Goiter Herpes simplex Intracranial hemorrhage (Multi) Osteoarthritis Vitamin D deficiency [2] Past Surgical History: Procedure Laterality Date SECTION, LOW TRANSVERSE 1983 SECTION, LOW TRANSVERSE 1988 COLONOSCOPY 2004, 2005 ESOPHAGOGASTRODUODENOSCOPY 2004, 2005 KNEE ARTHROSCOPY W/ SYNOVIAL BIOPSY Left 12/2005 TOTAL KNEE ARTHROPLASTY Left 01/2015 TOTAL KNEE ARTHROPLASTY Right 02/2016 WISDOM TOOTH EXTRACTION [3] Past Surgical History: Procedure Laterality Date SECTION, LOW TRANSVERSE 1983 SECTION, LOW TRANSVERSE 1988 COLONOSCOPY 2004, 2005 ESOPHAGOGASTRODUODENOSCOPY 2004, 2005 KNEE ARTHROSCOPY W/ SYNOVIAL BIOPSY Left 12/2005 TOTAL KNEE ARTHROPLASTY Left 01/2015 TOTAL KNEE ARTHROPLASTY Right 02/2016 WISDOM TOOTH EXTRACTION [4] Social History Tobacco Use Smoking Status Not on file Smokeless Tobacco Not on file [5] No family history on file. [6] Allergies Allergen Reactions Iodine Unknown Has had trouble with seafood Nitrofurantoin Itching Sulfa (Sulfonamide Antibiotics) Unknown Sulfamethoxazole-Trimethoprim Itching Cortisone Rash and Swelling Shoulder injection; flushing, but no hives or sob [7] Allergies Allergen Reactions Iodine Unknown Has had trouble with seafood Nitrofurantoin Itching Sulfa (Sulfonamide Antibiotics) Unknown Sulfamethoxazole-Trimethoprim Itching Cortisone Rash and Swelling Shoulder injection; flushing, but no hives or sob [facility] Work Phone: [phone]) 242-858706-13-2025 History and physical note* Ariana Blake MD - 01/30/2025 12:15 AM EDT History Of Present Illness Yaneli Basurto is a 74 y.o. female presenting with lower abdominal pain, bloody stool. States has not had a bowel movement for 3 to 4 days until today. This is normal for her. She denies straining for her stool this morning. Had several episodes of diarrhea which then turned bloody this afternoon. States she has had about 10 episodes of bloody stool since. Pain in her lower abdomen is mild. States had a low-grade fever of 99.8 at home. States she did not take any stool softeners or laxatives prior to today. On arrival, pt is tachycardic. She is afebrile here, though reportedly has had fevers at home. She is hypertensive as well/.. WBC elevated 14.9. UA negative FOBT positive; However Hg stable at 13. CMP unremarkable. Chief Complaint Patient presents with Abdominal Pain Black or Bloody Stool Pt states she has had approximately 10 episodes of bloody stool with diffuse mild abdominal pain, alow grade fever at home. HPI obtained from pt. Notes from ED physician and nurse reviewed. Case discussed with attending ED physician. Past Medical History Medical History[1] Surgical History Surgical History[2] Recent Surgeries in Hospitalist No cases to display Surgical History[3] Social History Social History Substance and Sexual Activity Alcohol Use Not on file Social History Substance and Sexual Activity Drug Use Not on file Social History Substance and Sexual Activity Sexual Activity Not on file Tobacco Use History[4] Food Insecurity: Not on file Financial Resource Strain: Not on file Intimate Partner Violence: Not on file Transportation Needs: Not on file Family History Family History[5] Allergies RX Allergies[6] Allergies[7] Physical Exam Physical Exam GENERAL: Vitals noted, no distress. Alert and oriented x 3. Non-toxic. EENT: TMs clear. Posterior oropharynx unremarkable. EOMI, no nystagmus noted. NECK: Supple. No masses. No midline tenderness. No meningeal signs. CARDIAC: Regular rate, rhythm. No murmurs rubs or gallops. No JVD. PULMONARY: Lungs clear and equal bilaterally. No wheezes rales or rhonchi. No respiratory distress. ABDOMEN: Soft, nondistended, and mildly tender in the left upper quadrant. No peritoneal signs. Bowel sounds are present and normoactive in all 4 quadrants. No pulsatile masses. : Rectal exam with female RN Edmundo at the bedside shows a rey sized partially thrombosed externalhemorrhoid at the 6 oclock position and a smaller flat external hemorrhoid at the 3 oclock position. No active bleeding or tenderness noted. EXTREMITIES: No peripheral edema. SKIN: No rash. Warm, dry, and intact. NEURO: No focal neurologic deficits. Last Recorded Vitals Visit Vitals BP 161/77 Pulse (!) 105 Temp 36.6 C (97.9 F) Resp 18 Visit Vitals BP 161/77 Pulse (!) 105 Temp 36.6 C (97.9 F) Resp 18 Ht 1.6 m (5' 3) Wt 79.4 kg (175 lb) SpO2 96% BMI 31.00 kg/m BSA 1.88 m Relevant Results Results for orders placed or performed during the hospital encounter of 01/29/25 (from the past 24 hours) Urinalysis with Reflex Culture and Microscopic Result Value Ref Range Color, Urine Yellow Light-Yellow, Yellow, Dark-Yellow Appearance, Urine Turbid (N) Clear Specific [place], Urine 1.020 1.005 - 1.035 pH, Urine 6.0 5.0, 5.5, 6.0, 6.5, 7.0, 7.5, 8.0 Protein, Urine 20 (TRACE) NEGATIVE, 10 (TRACE), 20 (TRACE) mg/dL Glucose, Urine Normal Normal mg/dL Blood, Urine NEGATIVE NEGATIVE mg/dL Ketones, Urine NEGATIVE NEGATIVE mg/dL Bilirubin, Urine NEGATIVE NEGATIVE mg/dL Urobilinogen, Urine Normal Normal mg/dL Nitrite, Urine NEGATIVE NEGATIVE Leukocyte Esterase, Urine NEGATIVE NEGATIVE Urinalysis Microscopic Result Value Ref Range WBC, Urine 1-5 1-5, NONE /HPF RBC, Urine 3-5 NONE, 1-2, 3-5 /HPF Mucus, Urine FEW Reference range not established. /LPF Lipase Result Value Ref Range Lipase 27 9 - 82 U/L Lactate Result Value Ref Range Lactate 1.7 0.4 - 2.0 mmol/L Comprehensive Metabolic Panel Result Value Ref Range Glucose 129 (H) 74 - 99 mg/dL Sodium 136 136 - 145 mmol/L Potassium 4.2 3.5 - 5.3 mmol/L Chloride 102 98 - 107 mmol/L Bicarbonate 25 21 - 32 mmol/L Anion Gap 13 10 - 20 mmol/L Urea Nitrogen 18 6 - 23 mg/dL Creatinine 0.97 0.50 - 1.05 mg/dL eGFR 61 >60 mL/min/1.73m*2 Calcium 9.9 8.6 - 10.3 mg/dL Albumin 4.4 3.4 - 5.0 g/dL Alkaline Phosphatase 84 33 - 136 U/L Total Protein 7.3 6.4 - 8.2 g/dL AST 29 9 - 39 U/L Bilirubin, Total 0.7 0.0 - 1.2 mg/dL ALT 26 7 - 45 U/L CBC and Auto Differential Result Value Ref Range WBC 14.9 (H) 4.4 - 11.3 x10*3/uL nRBC 0.0 0.0 - 0.0 /100 WBCs RBC 4.65 4.00 - 5.20 x10*6/uL Hemoglobin 13.9 12.0 - 16.0 g/dL Hematocrit 42.9 36.0 - 46.0 % MCV 92 80 - 100 fL MCH 29.9 26.0 - 34.0 pg MCHC 32.4 32.0 - 36.0 g/dL RDW 12.5 11.5 - 14.5 % Platelets 291 150 - 450 x10*3/uL Neutrophils % 82.6 40.0 - 80.0 % Immature Granulocytes %, Automated 0.2 0.0 - 0.9 % Lymphocytes % 9.6 13.0 - 44.0 % Monocytes % 7.1 2.0 - 10.0 % Eosinophils % 0.2 0.0 - 6.0 % Basophils % 0.3 0.0 - 2.0 % Neutrophils Absolute 12.29 (H) 1.60 - 5.50 x10*3/uL Immature Granulocytes Absolute, Automated 0.03 0.00 - 0.50 x10*3/uL Lymphocytes Absolute 1.42 0.80 - 3.00 x10*3/uL Monocytes Absolute 1.05 (H) 0.05 - 0.80 x10*3/uL Eosinophils Absolute 0.03 0.00 - 0.40 x10*3/uL Basophils Absolute 0.04 0.00 - 0.10 x10*3/uL Fecal Occult Blood Immunoassay Specimen: Stool Result Value Ref Range Fecal Occult Blood Immunoassay Positive (A) Negative Imaging CT abdomen pelvis w IV contrast Result Date: 01/29/2025 1.Moderate bowel wall thickening left upper descending colon and a portion of transverse colon. Etiology such as ischemic colitis, infectious or inflammatory colitis would be within differential. 2.Hepatic steatosis. 3.Right ovarian cyst. Signed by Alie Johns DO Cardiology, Vascular, and Other Imaging No other imaging results found for the past 2 days I personally reviewed and interpreted the above results, multiple of which contributed to my medical making decisions. Assessment/Plan Infectious Colitis Sepsis secondary to above -FOBT+, monitor Hg -continue vanc/zosyn -IVF -blood cultures ordered -stool culture pending HTN -continue home regimen -PRNs ordered Asthma -not in exacerbation -duoneb, budesonide, formotorol Fluids: NS 100/h Nutrition: advance as tolerated Bowel prophylaxis: DVT prophylaxis: SCDs, will avoid blood thinners for now given possible GI bleed Ariana Blake MD [1] Past Medical History: Diagnosis Date Anxiety Asthma (HHS-HCC) CVA (cerebral vascular accident) (Multi) Depression Essential hypertension GERD (gastroesophageal reflux disease) Goiter Herpes simplex Intracranial hemorrhage (Multi) Osteoarthritis Vitamin D deficiency [2] Past Surgical History: Procedure Laterality Date SECTION, LOW TRANSVERSE 1983 SECTION, LOW TRANSVERSE 1988 COLONOSCOPY 2004, 2006 ESOPHAGOGASTRODUODENOSCOPY 2004, 2006 KNEE ARTHROSCOPY W/ SYNOVIAL BIOPSY Left 12/2005 TOTAL KNEE ARTHROPLASTY Left 01/2015 TOTAL KNEE ARTHROPLASTY Right 02/2016 WISDOM TOOTH EXTRACTION [3] Past Surgical History: Procedure Laterality Date SECTION, LOW TRANSVERSE 1983 SECTION, LOW TRANSVERSE 1988 COLONOSCOPY 2004, 2006 ESOPHAGOGASTRODUODENOSCOPY 2004, 2006 KNEE ARTHROSCOPY W/ SYNOVIAL BIOPSY Left 12/2005 TOTAL KNEE ARTHROPLASTY Left 01/2015 TOTAL KNEE ARTHROPLASTY Right 02/2016 WISDOM TOOTH EXTRACTION [4] Social History Tobacco Use Smoking Status Not on file Smokeless Tobacco Not on file [5] No family history on file. [6] Allergies Allergen Reactions Iodine Unknown Has had trouble with seafood Nitrofurantoin Itching Sulfa (Sulfonamide Antibiotics) Unknown Sulfamethoxazole-Trimethoprim Itching Cortisone Rash and Swelling Shoulder injection; flushing, but no hives or sob [7] Allergies Allergen Reactions Iodine Unknown Has had trouble with seafood Nitrofurantoin Itching Sulfa (Sulfonamide Antibiotics) Unknown Sulfamethoxazole-Trimethoprim Itching Cortisone Rash and Swelling Shoulder injection; flushing, but no hives or sob documented in this [facility] Work Phone: [phone]) 823-261206-12-2025 Physician Emergency department Note* Milad Haines, DO - 01/29/2025 10:52 PM EDT Emergency Medicine Transition of Care Note. I received Yaneli Basurto in signout from Dr. Escalera. Please see the previous ED provider note for all HPI, PE and MDM up to the time of signout at 2200. This is in addition to the primary record. Patient is getting a dose of Flagyl 500 mg IV and ciprofloxacin 400 mg IV. Patient is too weak to go home and will be admitted for further diagnostic studies and treatment. In brief Yaneli Basurto is an 74 y.o. female presenting for Chief Complaint Patient presents with Abdominal Pain Black or Bloody Stool Pt states she has had approximately 10 episodes of bloody stool with diffuse mild abdominal pain, alow grade fever at home. At the time of signout we were awaiting: CT scan. Diagnoses as of 01/29/254 Colitis Labs Reviewed FECAL OCCULT BLOOD IMMUNOASSAY - Abnormal Result Value Fecal Occult Blood Immunoassay Positive (*) COMPREHENSIVE METABOLIC PANEL - Abnormal Glucose 129 (*) Sodium 136 Potassium 4.2 Chloride 102 Bicarbonate 25 Anion Gap 13 Urea Nitrogen 18 Creatinine 0.97 eGFR 61 Calcium 9.9 Albumin 4.4 Alkaline Phosphatase 84 Total Protein 7.3 AST 29 Bilirubin, Total 0.7 ALT 26 CBC WITH AUTO DIFFERENTIAL - Abnormal WBC 14.9 (*) nRBC 0.0 RBC 4.65 Hemoglobin 13.9 Hematocrit 42.9 MCV 92 MCH 29.9 MCHC 32.4 RDW 12.5 Platelets 291 Neutrophils % 82.6 Immature Granulocytes %, Automated 0.2 Lymphocytes % 9.6 Monocytes % 7.1 Eosinophils % 0.2 Basophils % 0.3 Neutrophils Absolute 12.29 (*) Immature Granulocytes Absolute, Automated 0.03 Lymphocytes Absolute 1.42 Monocytes Absolute 1.05 (*) Eosinophils Absolute 0.03 Basophils Absolute 0.04 URINALYSIS WITH REFLEX CULTURE AND MICROSCOPIC - Abnormal Color, Urine Yellow Appearance, Urine Turbid (*) Specific [place], Urine 1.020 pH, Urine 6.0 Protein, Urine 20 (TRACE) Glucose, Urine Normal Blood, Urine NEGATIVE Ketones, Urine NEGATIVE Bilirubin, Urine NEGATIVE Urobilinogen, Urine Normal Nitrite, Urine NEGATIVE Leukocyte Esterase, Urine NEGATIVE LIPASE - Normal Lipase 27 Narrative: Venipuncture immediately after or during the administration of Metamizole may lead to falsely low results. Testing should be performed immediately prior to Metamizole dosing. LACTATE - Normal Lactate 1.7 Narrative: Venipuncture immediately after or during the administration of Metamizole may lead to falsely low results. Testing should be performed immediately prior to Metamizole dosing. STOOL PATHOGEN PANEL, PCR URINALYSIS WITH REFLEX CULTURE AND MICROSCOPIC Narrative: The following orders were created for panel order Urinalysis with Reflex Culture and Microscopic. Procedure Abnormality Status --------- ------ Urinalysis with Reflex C...[[id number]] Abnormal Final result Extra Urine Farris Tube[[id number]] Please view results for these tests on the individual orders. EXTRA URINE FARRIS TUBE URINALYSIS MICROSCOPIC WITH REFLEX CULTURE WBC, Urine 1-5 RBC, Urine 3-5 Mucus, Urine FEW CT abdomen pelvis w IV contrast Final Result 1.Moderate bowel wall thickening left upper descending colon and a portion of transverse colon. Etiology such as ischemic colitis, infectious or inflammatory colitis would be within differential. 2.Hepatic steatosis. 3.Right ovarian cyst. Signed by Alie Johns DO Medical Decision Making Final diagnoses: None Procedure Procedures DO Milad Arambula DO 01/29/25 2173 [facility] Work Phone: [phone]) 958-888906-12-2025 Emergency department Note* Milad Haines DO - 01/29/2025 10:52 PM EDT Emergency Medicine Transition of Care Note. I received Yaneli Basurto in signout from Dr. Escalera. Please see the previous ED provider note for all HPI, PE and MDM up to the time of signout at 2200. This is in addition to the primary record. Patient is getting a dose of Flagyl 500 mg IV and ciprofloxacin 400 mg IV. Patient is too weak to go home and will be admitted for further diagnostic studies and treatment. In brief Yaneli Basurto is an 74 y.o. female presenting for Chief Complaint Patient presents with Abdominal Pain Black or Bloody Stool Pt states she has had approximately 10 episodes of bloody stool with diffuse mild abdominal pain, alow grade fever at home. At the time of signout we were awaiting: CT scan. Diagnoses as of 01/29/25 2304 Colitis Labs Reviewed FECAL OCCULT BLOOD IMMUNOASSAY - Abnormal Result Value Fecal Occult Blood Immunoassay Positive (*) COMPREHENSIVE METABOLIC PANEL - Abnormal Glucose 129 (*) Sodium 136 Potassium 4.2 Chloride 102 Bicarbonate 25 Anion Gap 13 Urea Nitrogen 18 Creatinine 0.97 eGFR 61 Calcium 9.9 Albumin 4.4 Alkaline Phosphatase 84 Total Protein 7.3 AST 29 Bilirubin, Total 0.7 ALT 26 CBC WITH AUTO DIFFERENTIAL - Abnormal WBC 14.9 (*) nRBC 0.0 RBC 4.65 Hemoglobin 13.9 Hematocrit 42.9 MCV 92 MCH 29.9 MCHC 32.4 RDW 12.5 Platelets 291 Neutrophils % 82.6 Immature Granulocytes %, Automated 0.2 Lymphocytes % 9.6 Monocytes % 7.1 Eosinophils % 0.2 Basophils % 0.3 Neutrophils Absolute 12.29 (*) Immature Granulocytes Absolute, Automated 0.03 Lymphocytes Absolute 1.42 Monocytes Absolute 1.05 (*) Eosinophils Absolute 0.03 Basophils Absolute 0.04 URINALYSIS WITH REFLEX CULTURE AND MICROSCOPIC - Abnormal Color, Urine Yellow Appearance, Urine Turbid (*) Specific [place], Urine 1.020 pH, Urine 6.0 Protein, Urine 20 (TRACE) Glucose, Urine Normal Blood, Urine NEGATIVE Ketones, Urine NEGATIVE Bilirubin, Urine NEGATIVE Urobilinogen, Urine Normal Nitrite, Urine NEGATIVE Leukocyte Esterase, Urine NEGATIVE LIPASE - Normal Lipase 27 Narrative: Venipuncture immediately after or during the administration of Metamizole may lead to falsely low results. Testing should be performed immediately prior to Metamizole dosing. LACTATE - Normal Lactate 1.7 Narrative: Venipuncture immediately after or during the administration of Metamizole may lead to falsely low results. Testing should be performed immediately prior to Metamizole dosing. STOOL PATHOGEN PANEL, PCR URINALYSIS WITH REFLEX CULTURE AND MICROSCOPIC Narrative: The following orders were created for panel order Urinalysis with Reflex Culture and Microscopic. Procedure Abnormality Status --------- ------ Urinalysis with Reflex C...[[id number]] Abnormal Final result Extra Urine Farris Tube[[id number]] Please view results for these tests on the individual orders. EXTRA URINE FARRIS TUBE URINALYSIS MICROSCOPIC WITH REFLEX CULTURE WBC, Urine 1-5 RBC, Urine 3-5 Mucus, Urine FEW CT abdomen pelvis w IV contrast Final Result 1.Moderate bowel wall thickening left upper descending colon and a portion of transverse colon. Etiology such as ischemic colitis, infectious or inflammatory colitis would be within differential. 2.Hepatic steatosis. 3.Right ovarian cyst. Signed by Alie Johns DO Medical Decision Making Final diagnoses: None Procedure Procedures DO Milad Arambula DO 01/29/25 2309 * Jennifer Escalera, PATTERN MECH[employer]IC[employer] ATTENDANT - 01/29/2025 8:41 PM EDT Chief Complaint Patient presents with Abdominal Pain Black or Bloody Stool Pt states she has had approximately 10 episodes of bloody stool with diffuse mild abdominal pain, alow grade fever at home. Patient History Medical History[1] Surgical History[2] Family History[3] Social History Social History Narrative Not on file RX Allergies[4] PMH: Reviewed PSH: Reviewed Social History: Reviewed. Allergies reviewed. HPI: Yaneli Basurto is a 74 y.o. female who presents to the ED today accompanied by her daughter and her daughter's fianc with complaints of lower abdominal pain, bloody stool. has not had a bowel movement for 3 to 4 days until today. This is normal for her. She denies straining for her stool this morning. Had several episodes of diarrhea which then turned bloody this afternoon. shehas had about 10 episodes of bloody stool since. Pain in her lower abdomen is mild. had a low-grade fever of 99.8 at home. States she did not take any stool softeners or laxatives prior to today. Has had 2 prior C-sections. Denies history of hemorrhoid. Denies feeling dizzy or lightheaded. Denies urinary complaints. REVIEW OF SYSTEMS: All other systems reviewed and negative except as listed in HPI. PHYSICAL EXAM: GENERAL: Vitals noted, no distress. Alert and oriented x 3. Non-toxic. EENT: TMs clear. Posterior oropharynx unremarkable. EOMI, no nystagmus noted. NECK: Supple. No masses. No midline tenderness. No meningeal signs. CARDIAC: Regular rate, rhythm. No murmurs rubs or gallops. No JVD. PULMONARY: Lungs clear and equal bilaterally. No wheezes rales or rhonchi. No respiratory distress. ABDOMEN: Soft, nondistended, and mildly tender in the left upper quadrant. No peritoneal signs. Bowel sounds are present and normoactive in all 4 quadrants. No pulsatile masses. : Rectal exam with female RN Edmundo at the bedside shows a rey sized partially thrombosed externalhemorrhoid at the 6 oclock position and a smaller flat external hemorrhoid at the 3 oclock position. No active bleeding or tenderness noted. EXTREMITIES: No peripheral edema. SKIN: No rash. Warm, dry, and intact. NEURO: No focal neurologic deficits. Labs Reviewed COMPREHENSIVE METABOLIC PANEL - Abnormal Result Value Glucose 129 (*) Sodium 136 Potassium 4.2 Chloride 102 Bicarbonate 25 Anion Gap 13 Urea Nitrogen 18 Creatinine 0.97 eGFR 61 Calcium 9.9 Albumin 4.4 Alkaline Phosphatase 84 Total Protein 7.3 AST 29 Bilirubin, Total 0.7 ALT 26 CBC WITH AUTO DIFFERENTIAL - Abnormal WBC 14.9 (*) nRBC 0.0 RBC 4.65 Hemoglobin 13.9 Hematocrit 42.9 MCV 92 MCH 29.9 MCHC 32.4 RDW 12.5 Platelets 291 Neutrophils % 82.6 Immature Granulocytes %, Automated 0.2 Lymphocytes % 9.6 Monocytes % 7.1 Eosinophils % 0.2 Basophils % 0.3 Neutrophils Absolute 12.29 (*) Immature Granulocytes Absolute, Automated 0.03 Lymphocytes Absolute 1.42 Monocytes Absolute 1.05 (*) Eosinophils Absolute 0.03 Basophils Absolute 0.04 URINALYSIS WITH REFLEX CULTURE AND MICROSCOPIC - Abnormal Color, Urine Yellow Appearance, Urine Turbid (*) Specific [place], Urine 1.020 pH, Urine 6.0 Protein, Urine 20 (TRACE) Glucose, Urine Normal Blood, Urine NEGATIVE Ketones, Urine NEGATIVE Bilirubin, Urine NEGATIVE Urobilinogen, Urine Normal Nitrite, Urine NEGATIVE Leukocyte Esterase, Urine NEGATIVE LIPASE - Normal Lipase 27 Narrative: Venipuncture immediately after or during the administration of Metamizole may lead to falsely low results. Testing should be performed immediately prior to Metamizole dosing. LACTATE - Normal Lactate 1.7 Narrative: Venipuncture immediately after or during the administration of Metamizole may lead to falsely low results. Testing should be performed immediately prior to Metamizole dosing. STOOL PATHOGEN PANEL, PCR FECAL OCCULT BLOOD IMMUNOASSAY URINALYSIS WITH REFLEX CULTURE AND MICROSCOPIC Narrative: The following orders were created for panel order Urinalysis with Reflex Culture and Microscopic. Procedure Abnormality Status --------- ------ Urinalysis with Reflex C...[[id number]] Abnormal Final result Extra Urine Farris Tube[[id number]] Please view results for these tests on the individual orders. EXTRA URINE FARRIS TUBE URINALYSIS MICROSCOPIC WITH REFLEX CULTURE WBC, Urine 1-5 RBC, Urine 3-5 Mucus, Urine FEW CT abdomen pelvis w IV contrast (Results Pending) Medical Decision Making ED COURSE: This patient was seen and examined by myself independently. She has an IV established. Labs drawn and noted above. Hydrated with NS 1L bolus. Declined pain or nausea medication initially. Hemorrhoid noted on external rectal exam. Leukocytosis and mild hyperglycemia noted on labs, otherwise negative. UA negative. Awaiting CT results at the end of my shift and care turned over to ED attending for completion. Differential Diagnoses Considered: GI bleed, anemia, colitis, gastritis, appendicitis, kidney stone, vaginal bleeding Chronic Medical Conditions Significantly Affecting Care: see above External Records Reviewed: I reviewed recent and relevant outside records including: PCP notes, prior discharge summary, previous radiologic studies Diagnostic testing considered: blood, urine, CT abd/pelv DIAGNOSTIC IMPRESSION: #1 abd pain #2 bloody stool [1] Past Medical History: Diagnosis Date Anxiety Asthma ([facility]) CVA (cerebral vascular accident) (Multi) Depression Essential hypertension GERD (gastroesophageal reflux disease) Goiter Herpes simplex Intracranial hemorrhage (Multi) Osteoarthritis Vitamin D deficiency [2] Past Surgical History: Procedure Laterality Date SECTION, LOW TRANSVERSE 1983 SECTION, LOW TRANSVERSE 1988 COLONOSCOPY 2004, 2005 ESOPHAGOGASTRODUODENOSCOPY 2004, 2005 KNEE ARTHROSCOPY W/ SYNOVIAL BIOPSY Left 12/2005 TOTAL KNEE ARTHROPLASTY Left 01/2015 TOTAL KNEE ARTHROPLASTY Right 02/2016 WISDOM TOOTH EXTRACTION [3] No family history on file. [4] Allergies Allergen Reactions Iodine Unknown Has had trouble with seafood Nitrofurantoin Itching Sulfa (Sulfonamide Antibiotics) Unknown Sulfamethoxazole-Trimethoprim Itching Cortisone Rash and Swelling Shoulder injection; flushing, but no hives or sob DEAN Rocha 01/29/252200 documented in this [facility] Work Phone: 1(222) 488-934106-12-2025 Physician Emergency department Note* DEAN Rocha - 01/29/2025 8:41 PM EDT Chief Complaint Patient presents with Abdominal Pain Black or Bloody Stool Pt states she has had approximately 10 episodes of bloody stool with diffuse mild abdominal pain, alow grade fever at home. Patient History Medical History[1] Surgical History[2] Family History[3] Social History Social History Narrative Not on file RX Allergies[4] PMH: Reviewed PSH: Reviewed Social History: Reviewed. Allergies reviewed. HPI: Yaneli Basurto is a 74 y.o. female who presents to the ED today accompanied by her daughter and her daughter's fianc with complaints of lower abdominal pain, bloody stool. has not had a bowel movement for 3 to 4 days until today. This is normal for her. She denies straining for her stool this morning. Had several episodes of diarrhea which then turned bloody this afternoon. shehas had about 10 episodes of bloody stool since. Pain in her lower abdomen is mild. had a low-grade fever of 99.8 at home. she did not take any stool softeners or laxatives prior to today. Has had 2 prior C-sections. Denies history of hemorrhoid. Denies feeling dizzy or lightheaded. Denies urinary complaints. REVIEW OF SYSTEMS: All other systems reviewed and negative except as listed in HPI. PHYSICAL EXAM: GENERAL: Vitals noted, no distress. Alert and oriented x 3. Non-toxic. EENT: TMs clear. Posterior oropharynx unremarkable. EOMI, no nystagmus noted. NECK: Supple. No masses. No midline tenderness. No meningeal signs. CARDIAC: Regular rate, rhythm. No murmurs rubs or gallops. No JVD. PULMONARY: Lungs clear and equal bilaterally. No wheezes rales or rhonchi. No respiratory distress. ABDOMEN: Soft, nondistended, and mildly tender in the left upper quadrant. No peritoneal signs. Bowel sounds are present and normoactive in all 4 quadrants. No pulsatile masses. : Rectal exam with female RN Edmundo at the bedside shows a rey sized partially thrombosed externalhemorrhoid at the 6 oclock position and a smaller flat external hemorrhoid at the 3 oclock position. No active bleeding or tenderness noted. EXTREMITIES: No peripheral edema. SKIN: No rash. Warm, dry, and intact. NEURO: No focal neurologic deficits. Labs Reviewed COMPREHENSIVE METABOLIC PANEL - Abnormal Result Value Glucose 129 (*) Sodium 136 Potassium 4.2 Chloride 102 Bicarbonate 25 Anion Gap 13 Urea Nitrogen 18 Creatinine 0.97 eGFR 61 Calcium 9.9 Albumin 4.4 Alkaline Phosphatase 84 Total Protein 7.3 AST 29 Bilirubin, Total 0.7 ALT 26 CBC WITH AUTO DIFFERENTIAL - Abnormal WBC 14.9 (*) nRBC 0.0 RBC 4.65 Hemoglobin 13.9 Hematocrit 42.9 MCV 92 MCH 29.9 MCHC 32.4 RDW 12.5 Platelets 291 Neutrophils % 82.6 Immature Granulocytes %, Automated 0.2 Lymphocytes % 9.6 Monocytes % 7.1 Eosinophils % 0.2 Basophils % 0.3 Neutrophils Absolute 12.29 (*) Immature Granulocytes Absolute, Automated 0.03 Lymphocytes Absolute 1.42 Monocytes Absolute 1.05 (*) Eosinophils Absolute 0.03 Basophils Absolute 0.04 URINALYSIS WITH REFLEX CULTURE AND MICROSCOPIC - Abnormal Color, Urine Yellow Appearance, Urine Turbid (*) Specific [place], Urine 1.020 pH, Urine 6.0 Protein, Urine 20 (TRACE) Glucose, Urine Normal Blood, Urine NEGATIVE Ketones, Urine NEGATIVE Bilirubin, Urine NEGATIVE Urobilinogen, Urine Normal Nitrite, Urine NEGATIVE Leukocyte Esterase, Urine NEGATIVE LIPASE - Normal Lipase 27 Narrative: Venipuncture immediately after or during the administration of Metamizole may lead to falsely low results. Testing should be performed immediately prior to Metamizole dosing. LACTATE - Normal Lactate 1.7 Narrative: Venipuncture immediately after or during the administration of Metamizole may lead to falsely low results. Testing should be performed immediately prior to Metamizole dosing. STOOL PATHOGEN PANEL, PCR FECAL OCCULT BLOOD IMMUNOASSAY URINALYSIS WITH REFLEX CULTURE AND MICROSCOPIC Narrative: The following orders were created for panel order Urinalysis with Reflex Culture and Microscopic. Procedure Abnormality Status --------- ------ Urinalysis with Reflex C...[[id number]] Abnormal Final result Extra Urine Farris Tube[[id number]] Please view results for these tests on the individual orders. EXTRA URINE FARRIS TUBE URINALYSIS MICROSCOPIC WITH REFLEX CULTURE WBC, Urine 1-5 RBC, Urine 3-5 Mucus, Urine FEW CT abdomen pelvis w IV contrast (Results Pending) Medical Decision Making ED COURSE: This patient was seen and examined by myself independently. She has an IV established. Labs drawn and noted above. Hydrated with NS 1L bolus. Declined pain or nausea medication initially. Hemorrhoid noted on external rectal exam. Leukocytosis and mild hyperglycemia noted on labs, otherwise negative. UA negative. Awaiting CT results at the end of my shift and care turned over to ED attending for completion. Differential Diagnoses Considered: GI bleed, anemia, colitis, gastritis, appendicitis, kidney stone, vaginal bleeding Chronic Medical Conditions Significantly Affecting Care: see above External Records Reviewed: I reviewed recent and relevant outside records including: PCP notes, prior discharge summary, previous radiologic studies Diagnostic testing considered: blood, urine, CT abd/pelv DIAGNOSTIC IMPRESSION: #1 abd pain #2 bloody stool [1] Past Medical History: Diagnosis Date Anxiety Asthma ([facility]) CVA (cerebral vascular accident) (Multi) Depression Essential hypertension GERD (gastroesophageal reflux disease) Goiter Herpes simplex Intracranial hemorrhage (Multi) Osteoarthritis Vitamin D deficiency [2] Past Surgical History: Procedure Laterality Date SECTION, LOW TRANSVERSE 1983 SECTION, LOW TRANSVERSE 1988 COLONOSCOPY 2004, 2005 ESOPHAGOGASTRODUODENOSCOPY 2004, 2005 KNEE ARTHROSCOPY W/ SYNOVIAL BIOPSY Left 12/2005 TOTAL KNEE ARTHROPLASTY Left 01/2015 TOTAL KNEE ARTHROPLASTY Right 02/2016 WISDOM TOOTH EXTRACTION [3] No family history on file. [4] Allergies Allergen Reactions Iodine Unknown Has had trouble with seafood Nitrofurantoin Itching Sulfa (Sulfonamide Antibiotics) Unknown Sulfamethoxazole-Trimethoprim Itching Cortisone Rash and Swelling Shoulder injection; flushing, but no hives or sob DEAN Rocha 01/29/252200 [facility] Work Phone: 1(254) 972-699501-10-2023 Miscellaneous Notes* PT DISCHARGE - Laura OsborndarinelkhrisZoe, PT - 08/29/2022 3:46 PM EST SITUATION: no one present during today's visit. patient reports the following since the last homecare visit: medications/allergies--new med , no fall. patient reports that she is doing very well withher walking and is using the cane all of the time . Pt requesting to be discharged this week from services BACKGROUND: Diagnoses (reason for Home Care): Essential (primary) hypertension Nontoxic diffuse goiter Gastro- esophageal reflux disease with esophagitis, without bleeding Unspecified asthma, uncomplicated Other malaise Weight Bearing/Precaution Changes: no changes ASSESSMENT: Focus of visit: reassessment /discharge Physical therapy discharged: goals achieved. Functional performance at discharge - bed mobility independent, transfers independent, ambulation independent and stairs supervision. Plan of care, goals, and discharge reviewed and agreed upon with patient and/or caregiver. RECOMMENDATION: Patient discharged from home health services. Instructions to include:begin outpatient therapy on 09/06/22 See intervention summary for intervention/education details. [facility] Miscellaneous Notes* OT DISCHARGE VISIT NOTE - Shannan Saldaña OT/Melanie - 08/28/2022 9:00 AM EST SITUATION: only patient present during today's visit. patient reports the following since the last homecare visit: medications/allergies--no changes, no fall. patient reports doing ok, looking forward to out pttherapy. BACKGROUND: Diagnoses or reason for Home Care: CVA ASSESSMENT: Focus of visit: HEP. Occupational therapy discharged: goals achieved. Functional Performance at discharge: I in ADL; S with shower. Plan of care, goals, and discharge reviewed and agreed upon with patient/caregiver. RECOMMENDATION: Instructions include: discharged from OT and is active with PT. Post dc recommendations: begin outpatient therapy on 09/06/21 See intervention summary for intervention/education details. [facility] Miscellaneous Notes* OT DISCHARGE VISIT NOTE - Shannan Saldaña OT/Melanie - 08/28/2022 9:00 AM EST SITUATION: only patient present during today's visit. patient reports the following since the last homecare visit: medications/allergies--no changes, no fall. patient reports doing ok, looking forward to out pttherapy. BACKGROUND: Diagnoses or reason for Home Care: CVA ASSESSMENT: Focus of visit: HEP. Occupational therapy discharged: goals achieved. Functional Performance at discharge: I in ADL; S with shower. Plan of care, goals, and discharge reviewed and agreed upon with patient/caregiver. RECOMMENDATION: Instructions include: discharged from OT and is active with PT. Post dc recommendations: begin outpatient therapy on 09/06/21 See intervention summary for intervention/education details. * OT DISCHARGE VISIT NOTE - Shannan Saldaña OT/Melanie - 08/28/2022 9:00 AM EST SITUATION: only patient present during today's visit. patient reports the following since the last homecare visit: medications/allergies--no changes, no fall. patient reports doing ok, looking forward to out pttherapy. BACKGROUND: Diagnoses or reason for Home Care: CVA ASSESSMENT: Focus of visit: HEP. Occupational therapy discharged: goals achieved. Functional Performance at discharge: I in ADL; S with shower. Plan of care, goals, and discharge reviewed and agreed upon with patient/caregiver. RECOMMENDATION: Instructions include: discharged from OT and is active with PT. Post dc recommendations: begin outpatient therapy on 09/06/21 See intervention summary for intervention/education details. [facility] Miscellaneous Notes* PT ROUTINE/REASSESSMENT/RECERT/CASE MGMT - Laura Tim, PT - 08/23/2022 9:11 AM EST SITUATION: no one present during today's visit. patient reports the following since the last homecare visit: medications/allergies--new med , no fall. patient reports that she was habving a lot of L UE pain over the holidays. Her MD ordered gabapentin but she has not needed to take any BACKGROUND: Diagnoses (reason for Home Care): Essential (primary) hypertension Nontoxic diffuse goiter Gastro- esophageal reflux disease with esophagitis, without bleeding Unspecified asthma, uncomplicated Other malaise Weight Bearing/Precaution Changes: no changes ASSESSMENT: Focus of visit QC amb, balance ex Plan of care, goals, and visit frequency reviewed and agreed upon with patient and/or caregiver. Current Discharge Plan: outpatient rehab Anticipate discharge by: 09/05/21 RECOMMENDATION: Plan to cont 1w2 for transitioning on cane Next visit -to focus on progress balanc ex, amb distance as tolerated See intervention summary for intervention/education details. [facility] Miscellaneous Notes* OT ROUTINE / CASE MGMT VISIT - KEYONA Sanchez/Melanie - 08/22/2022 2:27 PM EST SITUATION: only patient present during today's visit. patient reports the following since the last homecare visit: medications/allergies--no changes, no fall. patient reports doing ok. BACKGROUND: Diagnoses or reason for Home Care: Essential (primary) hypertension ASSESSMENT: Focus of Visit HEP, meal prep and balance. Plan of care, goals, and visit frequency reviewed and agreed upon with patient and/or caregiver. See intervention summary for intervention/education details. Current Discharge Plan: remain in community with/without caregiver support. Anticipate discharge by 09/16/22 RECOMMENDATION: Next visit to focus on HEP and transfers [facility] Miscellaneous Notes* OT ROUTINE / CASE MGMT VISIT - Shannan Saldaña OT/Melanie - 2022 11:28 AM EST SITUATION: daughter present during today's visit. patient reports the following since the last homecare visit:medications/allergies--see medication documentation, no fall. patient reports improved speech and amb with L UE continued dysfunction. BACKGROUND: Diagnoses or reason for Home Care: Essential (primary) hypertension [I10] ASSESSMENT: Focus of Visit L UE function Patient identified goals to have better use of L UE Plan of care, goals, and visit frequency reviewed and agreed upon with patient and/or caregiver. See intervention summary for intervention/education details. Current Discharge Plan: remain in community with/without caregiver support. Anticipate discharge by 09.05.22 RECOMMENDATION: Next visit to focus on L Ue function documented in this [facility]12[facility]22 Miscellaneous Notes* MRI SPECIALIST DISCHARGE - SHAGUFTA Culver - 08/16/2022 12:47 PM EST SITUATION: only patient present during today's visit. patient reports the following changes since the last homecare visit: medications/allergies--None, falls--None. patient reports she did well over the holidaylast weekend and her family and friends had no difficulty understanding her speech. . BACKGROUND: Diagnoses (reason for Home Care): Right basal ganglia ICH hypertension Nontoxic diffuse goiter Gastro- esophageal reflux disease with esophagitis, without bleeding Unspecified asthma, uncomplicated Other malaise Unspecified Essential Hypertension Multinodular Goiter Diaphragmatic Hernia Without Mention of Obstruction Or Gangrene Reflux Esophagitis Anxiety State, Unspe cifiedAsthma Herpes Simplex Without Mention of Complication Vitamin D Deficiency Oa (Osteoarthritis) of Knee Objective/Assessment: Pt has met all goals with treatment for dysarthria. Discharge plan: patient to continue with home exercise program for dysarthria follow up with PCP asneeded. See intervention summary for intervention/education details. documented in this [facility]Main [facility]12[facility]22 Miscellaneous Notes* OT ROUTINE / CASE MGMT VISIT - MINNA Sanchez - 08/14/2022 2:05 PM EST SITUATION: only patient present during today's visit. patient reports the following since the last homecare visit: medications/allergies--no changes, no fall. patient reports my left arm has been hurting but seems to be getting better. BACKGROUND: Diagnoses or reason for Home Care: Essential (primary) hypertension ASSESSMENT: Focus of Visit meal prep, HEP Plan of care, goals, and visit frequency reviewed and agreed upon with patient and/or caregiver. See intervention summary for intervention/education details. Current Discharge Plan: remain in community with/without caregiver support. Anticipate discharge by 09/16/22 RECOMMENDATION: Next visit to focus on OTR to make next visit to complete re-assessment. documented in this [facility]12[facility]22 Miscellaneous Notes* OT ROUTINE / CASE MGMT VISIT - MINNA Sanchez - 08/10/2022 9:00 AM EST SITUATION: daughter present during today's visit. patient reports the following since the last homecare visit:medications/allergies--no changes, no fall. patient reports doing ok BACKGROUND: Diagnoses or reason for Home Care: Essential (primary) hypertension ASSESSMENT: Focus of Visit HEP, splint wear Plan of care, goals, and visit frequency reviewed and agreed upon with patient and/or caregiver. See intervention summary for intervention/education details. Current Discharge Plan: remain in community with/without caregiver support. Anticipate discharge by 09/16/22 RECOMMENDATION: Next visit to focus on HEP and ADL's documented in this [facility]12[facility]22 Miscellaneous Notes* PT ROUTINE/REASSESSMENT/RECERT/CASE MGMT - Jose Guadalupe Mccurdy, DISTRICT RECRUITER - 08/09/2022 3:16 PM EST SITUATION: DISTRICT RECRUITER routine visit. spouse present during today's visit. patient reports the following since the last homecare visit: medications/allergies--no changes, no fall. patient states I've been doing pretty good. BACKGROUND: Hx of CVA Diagnoses (reason for Home Care): Essential (primary) hypertension [I10] Weight Bearing/Precaution Changes: no changes ASSESSMENT: Pt reports no increased pain during today's PT tx. Focus of visit: Gt and balance training with std cane. Plan of care, goals, and visit frequency reviewed and agreed upon with patient and/or caregiver. Current Discharge Plan: outpatient rehab Anticipate discharge by: 08/24/21 RECOMMENDATION: Pt would cont to benefit from further PT tx to improve LE/ trunk strength and balance in order to decrease assistance with transfers, walking, and stair negotiation. Next visit to focus on: Gt and balance training with std cane. See intervention summary for intervention/education details. documented in this encounterMain [facility]12[facility]-2022 Miscellaneous Notes* SN DISCIPLINE DISCHARGE - Suma Edwards RN - 08/09/2022 11:31 AM EST SITUATION: Shelter routine visit completed today. only patient also present during today's visit. patient reports the following: Allergies--reviewed Medications--reviewed current medications Falls--None BACKGROUND: Reason for Home Care: post CVA assessment and instruction ASSESSMENT: SN greeted at door by no one, pt found on couch Patient appears in no acute distress. Patient/CG concerns verbalized today: no special concerns SN findings today: Pt is sitting on couch, she reports that she is pleased with her progress and continues to have improvement in L hand function, she reports that she plans to go to OP OT but is going to start after home physical therapy is complete. Pt able to grasp a litlle better :that she plans to go to OP OT but is go stableSN findings today: Pt is sitting on couch, she reports that she is pleased with her progress and continues to have improvement in L hand function, she reports ing to start after home physical therapy is complete. Pt able to grasp a litlle better, she is able to use to pull up her pants better and feels optimistic about her goal to obtain more function. Physical therapy plans to start working to progress to a cane for ambulation. Pt is monitoring her BP and HR twice a day and verbalizes that she will hold the coreg if her HR is < 60. Vitals (see flow sheet for details):WDL stable See intervention summary for education details and any skills performed. Specific SN discharge instructions: Continue to monitor BP and HR twice a day and hold coreg if HR is <60, follow up with PCP and specialists as recommended. Patient encouraged to take all medication as ordered, eat a well-balanced diet and follow up with all physician appointments. Additional follow ups recommended: pt has follow ups scheduled with PCP and Neurology NOMNC: Not applicable this visit Discharged due to no further SN skilled need. RECOMMENDATION: Patient to continue with PT, OT and ST services. SITUATION: Shelter routine visit completed today. only patient also present during today's visit. documented in this encounterMain [facility] Center12-20-2022 Miscellaneous Notes* OT ROUTINE / CASE MGMT VISIT - MINNA Sanchez - 08/08/2022 12:38 PM EST SITUATION: only patient present during today's visit. patient reports the following since the last homecare visit: medications/allergies--no changes, no fall. patient reports doing go. BACKGROUND: Diagnoses or reason for Home Care: Essential (primary) hypertension ASSESSMENT: Focus of Visit transfers and HEP Plan of care, goals, and visit frequency reviewed and agreed upon with patient and/or caregiver. See intervention summary for intervention/education details. Current Discharge Plan: remain in community with/without caregiver support. Anticipate discharge by 09/16/22 RECOMMENDATION: Next visit to focus on HEP and tranfers. documented in this encounterMain Campus [facility] Center12-16-2022 Miscellaneous Notes* SN Routine - Suma Edwards RN - 08/04/2022 2:01 PM EST SITUATION: Shelter routine visit completed today. only patient also present during today's visit. patient reports the following: Allergies--reviewed Medications--reviewed current medications Falls--None BACKGROUND: Reason for Home Care: post CVA assessment and care ASSESSMENT: SN greeted at door by no one. Upon entrance patient found on couch Patient appears in no acute distress. Patient/CG concerns verbalized today: no special concers Vitals (see flow sheet for details): stable SN findings today: Pt is awake, sitting on couch. She states that she feels that she is doing very well. Pt has L arm weakness and wears brace on L wrist/hand, states that hand function is improving with therapy. She states that she is also improving with walking and the plan is for her to advance to a cane. Pt states that her speech is more affected when she is tired, she is able to clearly commu nicate today. See intervention summary for education details. Patient demonstrated a need for further skilled SN services for chronic disease management & education and medication education. Current Discharge plan: self-care and family support RECOMMENDATION: Next visit to focus on (be specific): CP assessment, discipline dc documented in this encounterMain Campus [facility] Center12-16-2022 Miscellaneous Notes* OT ROUTINE / CASE MGMT VISIT - MINNA Nicholas - 08/04/2022 11:42 AM EST SITUATION: Pt. seen for RAND Routine Visit. Grandchildren present during today's visit. patient reports the following since the last homecare visit: medications/allergies--no changes, no fall. patient reports She's hanging in there. Her Left hand is tight today, she hasn't worn her splint kaela few nights. Therapist assisted Pt. cindy Melanie UE resting hand splint post tasks. BACKGROUND: Diagnoses or reason for Home Care: Essential (primary) hypertension ICH with left side kelly ASSESSMENT: Focus of Visit L UE Function Patient identified goals to get stronger and back to myslef Plan of care, goals, and visit frequency reviewed and agreed upon with patient and/or caregiver. See intervention summary for intervention/education details. Current Discharge Plan: remain in community with/without caregiver support. Anticipate discharge by OT Reassessment by 08/18/2022 RECOMMENDATION: Next visit to focus on Pt. to be seen next by another RAND/Melanie. documented in this encounterMain Campus Medical Center12-15-2022 Miscellaneous Notes* PT ROUTINE/REASSESSMENT/RECERT/CASE MGMT - Jose Guadalupe Mccurdy PTA - 08/03/2022 2:42 PM EST SITUATION: DISTRICT RECRUITER routine visit. only patient present during today's visit. patient reports the following since the last homecare visit: medications/allergies--no changes, no fall. patient states I'm getting better Jose Guadalupe.. BACKGROUND: Diagnoses (reason for Home Care): Diagnoses (reason for Home Care): ICH Hosp 07/04-, [facility] 07/08-07/25/22 Past Medical History: Essential Hypertension Multinodular Goiter Diaphragmatic Hernia Without Mention of Obstruction Or Gangrene Reflux Esophagitis Anxiety State, Unspe cifiedAsthma Herpes Simplex Without Mention of Complication Vitamin D Deficiency Oa (Osteoarthritis) of Knee Weight Bearing/Precaution Changes: no changes ASSESSMENT: Pt reports increased pain during today's PT tx. Focus of visit: Establish HEP ( LE ex's 2-3 x a day ), walking program ( walk with walker every hour during the day.). Plan of care, goals, and visit frequency reviewed and agreed upon with patient and/or caregiver. Current Discharge Plan: outpatient rehab Anticipate discharge by: 08/24/21 RECOMMENDATION: Pt would cont to benefit from further PT tx to improve LE/ trunk strength and balance in order to decrease assistance with transfers, walking, and stair negotiation. Next visit to focus on: Gt and balance training with cane. See intervention summary for intervention/education details. documented in this encounterMain Campus Medical Center12-13-2022 Miscellaneous Notes* MRI SPECIALIST EVALUATION - Veronica Joseph [facility]-MRI SPECIALIST - 08/01/2022 2:11 PM EST SITUATION: only patient present during today's visit. patient reports the following changes since the last homecare visit: medications/allergies--None, falls--None. 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 ASSESSMENT: Patient demonstrated a need for further skilled ST services for instruction and education related to speech skills and oral motor skills. Plan of care, progress towards goals, and visit frequency reviewed/developed (agreement) with patient. Current Discharge plan: self-care anticipated discharge date 08/26/22. RECOMMENDATION: Recommend speech therapy intervention 1 w 4 to focus on speech skills and oral motor skills. See intervention summary for intervention/education details. documented in this encounterMain Campus Medical Center12-13-2022 Miscellaneous Notes* OT ROUTINE / CASE MGMT VISIT - Shannan Saldaña OT/Melanie - 08/01/2022 10:35 AM EST SITUATION: friend present during today's visit. patient reports the following since the last homecare visit: medications/allergies--no changes, no fall. patient reports improve L UE shoulder function. BACKGROUND: Primary Diagnoses (reason for Home Care): Essential (primary) hypertension ICH with left side kelly Past medical history: Nontoxic diffuse goiter Gastro- esophageal reflux disease with esophagitis, without bleeding Unspecified asthma, uncomplicated Unspecified Essential Hypertension Diaphragmatic Hernia Without Mention of Obstruction Or Gangrene Reflux Esophagitisto Anxiety State, Unspe cifiedAsthma Herpes Simplex Without Mention of Complication Vitamin D Deficiency Oa (Osteoarthritis) of Knee Weight Bearing or Precautions: fall risk ASSESSMENT: Focus of Visit L UE function Patient identified goals to be able to use my L hand Plan of care, goals, and visit frequency reviewed and agreed upon with patient and/or caregiver. See intervention summary for intervention/education details. Current Discharge Plan: remain in community with/without caregiver support. Anticipate discharge by 09/16/21 RECOMMENDATION: Next visit to focus on continue to work on L UE function documented in this encounterMain Campus Medical Center12-09-2022 Miscellaneous Notes* PT EVALUATION - Laura Tim PT - 07/28/2022 3:01 PM EST SITUATION: spouse present during today's visit. patient reports the following since the last homecare visit: medications/allergies--no changes, no fall. patient reports i'm getting better . BACKGROUND: Diagnoses (reason for Home Care): ICH Hosp 07/04-, [facility]H 07/08-07/25/22 Past Medical History: Essential Hypertension Multinodular Goiter Diaphragmatic Hernia Without Mention of Obstruction Or Gangrene Reflux Esophagitis Anxiety State, Unspe cifiedAsthma Herpes Simplex Without Mention of Complication Vitamin D Deficiency Oa (Osteoarthritis) of Knee Weight Bearing or Surgical Precautions: none, fall precautions ASSESSMENT: [facility] Reviewed and explained homecare services. Plan of care, goals, and visit frequency developed, reviewed, and agreed upon with patient and/or caregiver. Patient Goal: get back to normal , get my hand back Patient will benefit from continued physical therapy to address the following deficits: strength, balance, gait, endurance and stair negotiation. Current Discharge Plan:outpatient rehab. Anticipate discharge by tbd RECOMMENDATION: Next visit to focus on gait, balance See intervention summary for intervention/education details. documented in this encounterMain Campus Medical Center12-08-2022 Miscellaneous Notes* OT EVALUATION/REASSESSMENT/RECERT - Kim England OT/Melanie - 07/27/2022 12:35 PM EST SITUATION: OT evaluation spouse present during today's visit. patient reports the following since the last homecare visit: medications/allergies--no changes, no fall. BACKGROUND: Primary Diagnoses (reason for Home Care): Essential (primary) hypertension ICH with left side kelly Past medical history: Nontoxic diffuse goiter Gastro- esophageal reflux disease with esophagitis, without bleeding Unspecified asthma, uncomplicated Unspecified Essential Hypertension Diaphragmatic Hernia Without Mention of Obstruction Or Gangrene Reflux Esophagitis Anxiety State, Unspe cifiedAsthma Herpes Simplex Without Mention of Complication Vitamin D Deficiency Oa (Osteoarthritis) of Knee Weight Bearing or Precautions: fall risk ASSESSMENT: [facility]. Reviewed and explained homecare services. Plan of care, goals and visit frequency developed, reviewed, and agreed upon with patient and/or caregiver. Patient identified goals: to be indep and get my left arm working. Patient will benefit from continued occupational therapy to address the following deficits functional activity including I/ADLs, UE strength/ROM and functional transfers as evidenced by score on Modified Cici Index 70/100. Current Discharge Plan:remain in community with/without caregiver support. Anticipate discharge by 09/16/21 RECOMMENDATION: Plan for next visit to focus on left UE rom, neuro re-ed, adls. See intervention summary for intervention/education details. documented in this encounterMain Campus Medical Center12-07-2022 Miscellaneous Notes* Telephone Encounter - Kathy Vaughan RN - 07/26/2022 2:46 PM EST \ documented in this encounterMain Campus Medical Center12-07-2022 Miscellaneous Notes* SN SOC - Kathy Vaughan RN - 07/26/2022 10:17 AM EST SITUATION: Shelter SOC visit completed today. spouse also present during today's visit. patient reports the following: Allergies--reviewed Medications--full medication reconciliation completed Falls--None DME-Reviewed and added to chart BACKGROUND: Discharged/Referral from acute rehab hospital on 07/25/22 following treatment for RIght Basal Ganglia ICH a/w Left Hemiparesis. Pertinent referral information or other diagnoses that may affect plan of care: Unspecified Essential Hypertension Multinodular Goiter Diaphragmatic Hernia Without Mention of Obstruction Or Gangrene Reflux Esophagitis Anxiety State, Unspe cifiedAsthma Herpes Simplex Without Mention of Complication Vitamin D Deficiency Oa (Osteoarthritis) of Knee ASSESSMENT: SN greeted at door by caregiver. Upon entrance patient found in chair Patient appears in no acute distress. Patient lives at home with , children and grandchildren. Home environment: clean and cluttered. SOC booklet reviewed & completed with patient and consent obtained for Home Care services. Patient/CG concerns verbalized today: none Vitals (see flow sheet for details): stable SN findings today: Greeted outside of garage by . Cindy found sitting on the couch on arrival. Patient was discharged from [facility] yesterday after a stay after suffering a RIght Basal Ganglia ICH a/w Left Hemiparesis. Patient had facial symmetry- profound weakness in the L hand and leg/foot. Patient is wearing a L hand splint at night and continues to do the exercises she was given at [facility]. Wheeled walker fitted for a hand splint as well where she fits her L hand into it in order to grasp the walker. Feels she is getting stronger each day. Patient denies any pain over the past 24 hours. Educated on not ignoring symptoms she has related to her stroke. Prior she said she had a headache that was unusual- but went to bed. She is more aware at this time. States since being home she has not showered yet due to the family making adjustments to the shower. Appetite is good- states she is taking miralax daily and moving her bowels. Discussed the importance of good nurition forstrength. Lives in the home with multiple famly members and 5 dogs. Patient states she feels safe at home. All living is on the first floor- so no stair climbing. Vital signs stable- able to be weighed with a stable gait. Lung sounds clear. Called her PCP for a follow up and waiting back to hear. Severe interaction with patients inhalers and coreg- message left at PCP office in regards to the inte ractions. Patient is on new medications and could benefit from SN to ensure she is taking properly.Is checking her pulse for her coreg prior to administration. No other questions at this time. Agreeable to SN interventions. See intervention summary for education details and skills performed. Plan of care and visit frequency established with patient and plan of care agreed upon. Patient demonstrated a need for further skilled SN services for chronic disease management & education, medication education and safety. RECOMMENDATION: Visit Frequency: 1w3 Need for additional services: Patient agreeable to PT, OT and ST referrals. 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 Additional concerns to be followed up on: NONE Next visit to focus on (be specific): Did she make a follow up appt? Any issues with her medications? documented in this encounterMain Campus Medical Center12-02-2022 Miscellaneous Notes* Telephone Encounter - Margret Nielsen LPN - 07/21/2022 9:44 AM EST Voice message left requesting a call back to confirm SOC Margret Nielsen LPN Central Admissions Intake Nurse documented in this encounterMain Campus Medical Center11-18-2022 NoteSend Summary: Discharge Summary Providers: Provider RoleProvider Name AttendingOctavio Jaeger PrimaryRequired, No Pcp Note Recipients: Octavio Jaeger MD Required, No Pcp, MD Discharge: Summary: Admission Date: .04-Jul-2022 10:45:00 Discharge Date: 07-Jul-2022 Attending Physician at Discharge: Octavio Jaeger Admission Reason: left arm and leg weakness,dysarthria Final Discharge Diagnoses: Acute right basal ganglia intracerebral hemorrhage left hemiplegia with flaccid left arm, dysarthria, hypertension, mildly elevated LDL of 103 and I reevaluated hemoglobin A1c of 6.1. Echocardiogram revealed normal left ventricular systolic function and no wall motion abnormality with Procedures: none Condition at Discharge: Fair Disposition at Discharge: Inpatient Rehab Facility (IRF) Vital Signs: T PRBPMAPSpO2 [id number]% Date/Time07/07 12: 12: 12: 12: 0: 12:23 Range(35.9C - 36.8C ) (57 - 79 ) (16 - 18 ) (108 - 152 )/ (47 - 88 ) (80 - 86 ) (94% - 97% ) Date: Weight/Scale Type:Height: 07-Jul-2022 06:5883.4 kg / bed Physical Exam: see below Hospital Course: Service: General Internal Medicine Subjective Data: YANELI BASURTO is a 71 year old Female who is Hospital Day # 4. Patient interviewed and examined. 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 Remains flaccid however left leg power is improved significantly. And his speech is also improving. Her blood pressures are stable and she is hemodynamically stable to be discharged to acute rehab now. Patient was seen by neurology as well as neurosurgery during the hospital stay and no surgical intervention for intracerebral hemorrhage was recommended. Lipid panel did reveal a mildly elevated LDL of 103 for which she has been put on atorvastatin, her echocardiogram revealed low wall motion abnormality and normal left ventricular systolic function. Hemoglobin A1c was 6.4 and blood sugars are stable. Objective Data: Objective Information: T PRBPMAPSpO2 [id number]% Date/Time07/07 12: 12: 12: 12: 0:00109/06 12:23 Range(35.9C - 36.8C ) (57 - 79 ) (16 - 18 ) (108 - 152 )/ (47 - 88 ) (80 - 86 ) (94% - 97% ) Pain reported at 07/07 2:11: 0 = None ---- Intake and Output ----- Mn/Dy/Year TimeIntakeOutputNet Jul 07, 2022 6:00 [id number] Jul 06, 2022 10:00 [id number] Jul 06, 2022 2:00 [id number] The Intake and Output Totals for the last 24 hours are: IntakeOutputNet [id number] Physical Exam by System: Constitutional: Awake and alert, comfortable, cooperative, afebrile Eyes: PERRL, EOMI, clear sclera ENMT: mucous membranes moist, no apparent injury, no lesions seen Head/Neck: Neck supple, no apparent injury, thyroid without mass or tenderness, No JVD, trachea midline, no bruits Respiratory/Thorax: Patent airways, CTAB, normal breath sounds with good chest expansion, thorax symmetric Cardiovascular: Rate and rhythm is regular, normal S1-S2, no gallop or pericardial rub, 1/6 systolic ejection murmur left sternal border, no CHF. Gastrointestinal: Nondistended, soft, non-tender, no rebound tenderness or guarding, no masses palpable, no organomegaly, +BS, no bruits Genitourinary: Not examined Musculoskeletal: Remote bilateral total knee replacement. Extremities: normal extremities, no cyanosis edema, contusions or wounds, no clubbing Neurological: Awake and alert, dysarthria, left facial droop, flaccid left upper arm. Power decreased in left lower extremity 3/5. No sensory impairment, tendon reflexes are brisk in the lower extremities and extensor plantar on the left. Gait was not tested. Breast: Not examined Lymphatic: No significant lymphadenopathy Psychological: Appropriate mood and behavior Skin: Warm and dry, no lesions, no rashes Medication: Medications: Continuous Medications No continuous medications are active Scheduled Medications 1. Atorvastatin: 40 mg Oral Daily 2. Carvedilol: 25 mg Oral 2 Times a Day 3. Docusate: 100 mg Oral 2 Times a Day 4. Lisinopril: 40 mg Oral Daily 5. Melatonin: 3 mg Oral Daily 1800 6. Venlafaxine Extended Release: 75 mg Oral Daily PRN Medications 1. Albuterol 2.5 mg - Ipratropium 0.5 mg/ 3 mL Neb Soln: 3 mL Inhalation Every 6 Hours 2. hydrOXYzine Hydrochloride (ATARAX): 25 mg Oral Every 6 Hours Recent Lab Results: Results: I have reviewed these laboratory results: Basic Metabolic Panel Trending View [id number] 05:30:00 06-Jul-2022 06:19:00 Glucose, [id number] H 111 H (more content not included)...[facility]11-18-2022 Hospital Discharge instructions* Activity:activity with assistance. * Tests 1:Test Name(s): Repeat MRI brain in 4-6 weeks * Call Provider If:Any new concerning symptoms. * Care Recommendation:I recommend that INPATIENT care is required at: Acute rehabEstimated Stay: Convalescent stay < 30 daysPrognosis: GoodRehab Potential/Function: Improve * Therapy Orders:Occupational Therapy Orders: [facility])Physical Therapy Orders: Eval and Treat ([facility] * Provider Follow Up:Physician To Follow at Skilled/Rehab: Attending Physician at Skilled/Rehab * Follow Up Appointment 1:Physician/Dept/Service: Dr. Kaleb Javier, PCPReason for Referral: post hospital follow up, routine medical management, medication refills * Follow Up Appointment 2:Physician/Dept/Service: Dr. Issac Owens Vascular NeurologyReason for Referral: right basal ganglia bleed leading to left hemiplegiaScheduled Date/Time: 26-Sep-2022 14:00Location: [address] [facility] [id number] [place], [place] [address]Xphvv Number: [phone]: ( Request for a sooner appointment sent to the department of Neurology. 1st available provider and location.Please wear a mask to your visit. Please bring insurance card, photo ID and co-pay to your appointment. Please call the office if you cannot keep this appointment. * Safety:Siderails: yesSiderails Number/Reason: fall riskRestraints: noSitter: noFall Risk: weakness [facility]11-15-2022 NoteComorbidities: Comorbidites: Comorbid Conditionshypertension Social History: Social History: Smoking Statusnever smoker (1) Alcohol Usedenies(1) Drug Usedenies (1) Allergies: No Known Allergies: Medications Prior to Admission: Admission Medication Reconciliation has not been completed for this patient. Objective: Objective Information: Objective Information Date: Weight/Scale Type: 04-Jul-2022 05:1082.5 kg Assessment and Plan: Other: Diagnosis: HPI: Yaneli Basurto is a 71 year old female with history of HTN, asthma, GERD, thyroid nodules, anxiety, depression and vitamin D deficiency who presented to the [facility] ED on 07/04 due to concern for stroke. She reported that since yesterday afternoon, she has experienced vertigo with some degree of gait instability. Denies any trauma or falls. No chest pain, SOB, or palpitations. No lightheadedness. She went to bed at approximately 2300 on 07/03, woke at 0130 07/04 and went back to sleep. She then woke at approximately [address] - 0430 with left-sided hemibody and facial weakness. She presented to the [facility] ED where iNIHSS was 8 (FD, LUE flaccidity LLE drift, dysarthria). CT brain was obtained and notable for 1.5 x 1.5 x 2.5 cm acute intracranial hemorrhage centered in the right lentiform nucleus without significant mass effect or midline shift. She was initially hypertensive to the 170s for which she was give 10 mg of IV labetalol x 2, and started on a nicardipine gtt. She was transferred to the [facility] ICU for further management. PMHx: HTN, asthma, GERD, thyroid nodules, anxiety, depression and vitamin D deficiency PSHx: Bilateral TKA, carpal tunnel release RUE, section Social Hx: Denies tobacco, illicit drugs, occasional EtOH Family Hx: CAD (father), pancreatic cancer (mother), CVA (grandmother), [place] (grandfather), HTN (brother and sister) Medications: Metoprolol tartrate 25 mg daily, cholecalciferol 125 ug daily, albuterol PRN, fluticasone furoate, quinapril 40 mg daily, venlafaxine 37.5ER 75 mg daily ROS: Full 12 point ROS completed and negative aside from HPI Physical Exam: General: Awake and alert, NAD Neuro: A&Ox4. VF intact. PERRL approximately 3 mm-->2 mm OU. Facial sensation grossly symmetric. Left FD. LUE no movement noted, LLE drift but does not hit bed, RUE and RLE 5/5. SILT grossly BUE and BLE. No ataxia/dysmetria. Dysarthric. NIHSS 8 on current evaluation (left FD 2, LUE drift 4, LLE drift 1, dysathria 1). HEENT: NCAT Neck: Supple CV: RRR Pulm: Bilateral breath sounds, chest rise symmetric, CTA GI: Soft, not appreciably tender, no rebound/guarding : No appreciable suprapubic or flank tenderness MSK: No gross bony extremity deformities, symmetric radial/pedal pulses Assessment/Plan: 71 year old female with history of HTN, asthma, GERD, thyroid nodules, anxiety, depression and vitamin D deficiency who presented to the [facility] ED on 07/04 due to concern for stroke with LKW 0130 on 07/04, and was found to have 1.5 x 1.5 x 2.5 cm R BG ICH. Neurological: #ICH PLAN: -NSGY and neurology following, appreciate input -SBP <160 -Cardene gtt off -PRN labetalol/hydralazine -Resume home antihypertensives -Possibly HTN in etiology given location and history, but consider vessel imaging if felt warranted by NSGY or neurology -Repeat CTH 6 hours after initial (approximately 1130) stable -PT/OT/ST as indicated CV: #History of HTN PLAN: -Resume home antihypertensives as able (metoprolol tartrate 25 mg daily, quinapril 40 mg daily) -SBP <160, PRN labetalol/hydralazine -Wean cardene as able -Admission EKG Pulmonary: PLAN: -Supplemental O2 as needed Renal: PLAN: -Trend RFP/metabolic panel -Replete electrolytes as indicated GI: PLAN: -NPO for now -ADAT following swallow evaluation Endo: PLAN: -POCT glucose Q6H for now -SSI as indicated Heme: PLAN: -Hold DVT chemoprophylaxis in setting of ICH -SCDs for now ID: PLAN: -Trend temperature/WBC curve Dispo: Maintain in ICU for now, consider transfer given stable CTH if nicardipine remains off and patient remains stable This critically ill patient continues to be at-risk for clinically significant deterioration / failure due to the above mentioned dysfunctional, unstable organ systems. I have personally identified and managed all complex critical care issues to prevent aforementioned clinical deterioration. Critical care time is spent at bedside and/or the immediate area and has included, but is not limited to, the review of diagnostic tests, labs, radiographs, serial assessments of hemodynamics, respiratory status, ventilatory management, and family updates. Time spent in procedures and teaching are reported separately. CRITICAL CARE TIME: 45 minutes Code Status: Code StatusFull Code Attestation: Note Completion: Cr (more content not included)...[facility]11-01-2022 Chief complaint Narrative - [id number] yo female referral from Neurology DR Owens. H/O of HTN, asthma, GERD, thyroid nodules, anxiety,depression and vitamin D deficiency,Admitted Jun 2022 with LUE and LLE hemiplegia and hypertensive on presentation (SBP [address] brain notable for 1.5 x 1.5 x 2.5 cm acute intracranial hemorrhage centered in the right lentiform nucleus without significant mass effect or midline shift.[id number] Work Phone: 1(299) 551-573611-01-2022 Chief complaint Narrative - [id number] yo female referral from Neurology DR Owens. H/O of HTN, asthma, GERD, thyroid nodules, anxiety,depression and vitamin D deficiency,Admitted Jun 2022 with LUE and LLE hemiplegia and hypertensive on presentation (SBP [address] brain notable for 1.5 x 1.5 x 2.5 cm acute intracranial hemorrhage centered in the right lentiform nucleus without significant mass effect or midline shift. [facility] Work Phone: 1(732) 306-120711-01-2022 History of Present illness Narrative* 72 yo female referral from Neurology DR Owens. H/O of HTN, asthma, GERD, thyroid nodules, anxiety,depression and vitamin D deficiency,Admitted Jun 2022 with LUE and LLE hemiplegia and hypertensive on presentation (SBP [address] brain notable for 1.5 x 1.5 x 2.5 cm acute intracranial hemorrhage centered in the right lentiform nucleus without significant mass effect or midline shift. Meningioma of the left cerebellum was not reported on the CT then, but it is evidence on imagng. She had a followup MRI brain which was personally reviewed which revealed a left cerebellar dural based homogenously enhancing lesion concerning for meningioma. She was then referred to see me in neurosurgery. * She comes to clinic today accompanied by 2 family members. She has made some recovery since her stroke back in Jun 2022, although she still has residual weakness on the left. But otherwise, she is doing well. Patient denies fevers, headaches, nausea, vomiting, speech difficulty, seizures, double/blurry vision, sensory loss, incontinence, pain. [facility] Work Phone: [phone]) 162-346312-10-2015 History of Past illness Narrative* Problem Noted Date Resolved Date Encounter for screening for malignant neoplasm o f colon 07/29/2015 07/29/2015 Postinflammatory skin changes 11/18/2011 Cryosurgical Scar 11/18/2011 06/08/2015 Epidermal cyst 11/18/2011 06/08/2015 Milial cyst 11/18/2011 06/08/2015 Xerosis cutis 11/18/2011 06/08/2015 Solar Lentigines 08/31/2011 06/08/2015 Actinic Keratosis: Premalign ant AK: large inflamed hypertrophic type: L medial dorsal hand 08/30/2011 06/08/2015 Neoplasm of Uncertain Behavior (NUB) of skin 06/201206/08/2015 Actinic skin damage 08/30/2011 06/08/2015 Other vitamin B12 deficiency anemia 12/14/2006 06/08/2015 Dysphagia 06/08/2015 Iron deficiency anemia, unspecified 06/08/2015 Nausea alone 06/08/2015 Internal hemorrhoids without mention of complica tion 06/08/2015 Nontoxic multinodular goiter Overview: NEEDS REPEAT U/S late 2006 or early 2007 documented as of this encounter (statuses as of 07/21/2022) [facility]12-10-2015 History of Past illness Narrative* Problem Noted Date Resolved Date Encounter for screening for malignant neoplasm o f colon 07/29/2015 07/29/2015 Postinflammatory skin changes 11/18/2011 Cryosurgical Scar 11/18/2011 06/08/2015 Epidermal cyst 11/18/2011 06/08/2015 Milial cyst 11/18/2011 06/08/2015 Xerosis cutis 11/18/2011 06/08/2015 Solar Lentigines 08/31/2011 06/08/2015 Actinic Keratosis: Premalign ant AK: large inflamed hypertrophic type: L medial dorsal hand 08/30/2011 06/08/2015 Neoplasm of Uncertain Behavior (NUB) of skin 06/201206/08/2015 Actinic skin damage 08/30/2011 06/08/2015 Other vitamin B12 deficiency anemia 12/14/2006 06/08/2015 Dysphagia 06/08/2015 Iron deficiency anemia, unspecified 06/08/2015 Nausea alone 06/08/2015 Internal hemorrhoids without mention of complica tion 06/08/2015 Nontoxic multinodular goiter Overview: NEEDS REPEAT U/S late 2006 or early 2007 documented as of this encounter (statuses as of 07/25/2022) [facility]12-10-2015 History of Past illness Narrative* Problem Noted Date Resolved Date Encounter for screening for malignant neoplasm o f colon 07/29/2015 07/29/2015 Postinflammatory skin changes 11/18/2011 Cryosurgical Scar 11/18/2011 06/08/2015 Epidermal cyst 11/18/2011 06/08/2015 Milial cyst 11/18/2011 06/08/2015 Xerosis cutis 11/18/2011 06/08/2015 Solar Lentigines 08/31/2011 06/08/2015 Actinic Keratosis: Premalign ant AK: large inflamed hypertrophic type: L medial dorsal hand 08/30/2011 06/08/2015 Neoplasm of Uncertain Behavior (NUB) of skin 06/201206/08/2015 Actinic skin damage 08/30/2011 06/08/2015 Other vitamin B12 deficiency anemia 12/14/2006 06/08/2015 Dysphagia 06/08/2015 Iron deficiency anemia, unspecified 06/08/2015 Nausea alone 06/08/2015 Internal hemorrhoids without mention of complica tion 06/08/2015 Nontoxic multinodular goiter Overview: NEEDS REPEAT U/S late 2006 or early 2007 documented as of this encounter (statuses as of 07/26/2022) [facility]12-[facility] History of Past illness Narrative* Problem Noted Date Resolved Date Encounter for screening for malignant neoplasm o f colon 07/29/2015 07/29/2015 Postinflammatory skin changes 11/18/2011 Cryosurgical Scar 11/18/2011 06/08/2015 Epidermal cyst 11/18/2011 06/08/2015 Milial cyst 11/18/2011 06/08/2015 Xerosis cutis 11/18/2011 06/08/2015 Solar Lentigines 08/31/2011 06/08/2015 Actinic Keratosis: Premalign ant AK: large inflamed hypertrophic type: L medial dorsal hand 08/30/2011 06/08/2015 Neoplasm of Uncertain Behavior (NUB) of skin 06/201206/08/2015 Actinic skin damage 08/30/2011 06/08/2015 Other vitamin B12 deficiency anemia 12/14/2006 06/08/2015 Dysphagia 06/08/2015 Iron deficiency anemia, unspecified 06/08/2015 Nausea alone 06/08/2015 Internal hemorrhoids without mention of complica tion 06/08/2015 Nontoxic multinodular goiter Overview: NEEDS REPEAT U/S late 2006 or early 2007 documented as of this encounter (statuses as of 07/26/2022) [facility]12-[facility] History of Past illness Narrative* Problem Noted Date Resolved Date Encounter for screening for malignant neoplasm o f colon 07/29/2015 07/29/2015 Postinflammatory skin changes 11/18/2011 Cryosurgical Scar 11/18/2011 06/08/2015 Epidermal cyst 11/18/2011 06/08/2015 Milial cyst 11/18/2011 06/08/2015 Xerosis cutis 11/18/2011 06/08/2015 Solar Lentigines 08/31/2011 06/08/2015 Actinic Keratosis: Premalign ant AK: large inflamed hypertrophic type: L medial dorsal hand 08/30/2011 06/08/2015 Neoplasm of Uncertain Behavior (NUB) of skin 06/201206/08/2015 Actinic skin damage 08/30/2011 06/08/2015 Other vitamin B12 deficiency anemia 12/14/2006 06/08/2015 Dysphagia 06/08/2015 Iron deficiency anemia, unspecified 06/08/2015 Nausea alone 06/08/2015 Internal hemorrhoids without mention of complica tion 06/08/2015 Nontoxic multinodular goiter Overview: NEEDS REPEAT U/S late 2006 or early 2007 documented as of this encounter (statuses as of 07/28/2022) [facility]12[facility] History of Past illness Narrative* Problem Noted Date Resolved Date Encounter for screening for malignant neoplasm o f colon 07/29/2015 07/29/2015 Postinflammatory skin changes 11/18/2011 Cryosurgical Scar 11/18/2011 06/08/2015 Epidermal cyst 11/18/2011 06/08/2015 Milial cyst 11/18/2011 06/08/2015 Xerosis cutis 11/18/2011 06/08/2015 Solar Lentigines 08/31/2011 06/08/2015 Actinic Keratosis: Premalign ant AK: large inflamed hypertrophic type: L medial dorsal hand 08/30/2011 06/08/2015 Neoplasm of Uncertain Behavior (NUB) of skin 06/201206/08/2015 Actinic skin damage 08/30/2011 06/08/2015 Other vitamin B12 deficiency anemia 12/14/2006 06/08/2015 Dysphagia 06/08/2015 Iron deficiency anemia, unspecified 06/08/2015 Nausea alone 06/08/2015 Internal hemorrhoids without mention of complica tion 06/08/2015 Nontoxic multinodular goiter Overview: NEEDS REPEAT U/S late 2006 or early 2007 documented as of this encounter (statuses as of 08/02/2022) [facility]12[facility] History of Past illness Narrative* Problem Noted Date Resolved Date Encounter for screening for malignant neoplasm o f colon 07/29/2015 07/29/2015 Postinflammatory skin changes 11/18/2011 Cryosurgical Scar 11/18/2011 06/08/2015 Epidermal cyst 11/18/2011 06/08/2015 Milial cyst 11/18/2011 06/08/2015 Xerosis cutis 11/18/2011 06/08/2015 Solar Lentigines 08/31/2011 06/08/2015 Actinic Keratosis: Premalign ant AK: large inflamed hypertrophic type: L medial dorsal hand 08/30/2011 06/08/2015 Neoplasm of Uncertain Behavior (NUB) of skin 06/201206/08/2015 Actinic skin damage 08/30/2011 06/08/2015 Other vitamin B12 deficiency anemia 12/14/2006 06/08/2015 Dysphagia 06/08/2015 Iron deficiency anemia, unspecified 06/08/2015 Nausea alone 06/08/2015 Internal hemorrhoids without mention of complica tion 06/08/2015 Nontoxic multinodular goiter Overview: NEEDS REPEAT U/S late 2006 or early 2007 documented as of this encounter (statuses as of 08/04/2022) [facility]12[facility] History of Past illness Narrative* Problem Noted Date Resolved Date Encounter for screening for malignant neoplasm o f colon 07/29/2015 07/29/2015 Postinflammatory skin changes 11/18/2011 Cryosurgical Scar 11/18/2011 06/08/2015 Epidermal cyst 11/18/2011 06/08/2015 Milial cyst 11/18/2011 06/08/2015 Xerosis cutis 11/18/2011 06/08/2015 Solar Lentigines 08/31/2011 06/08/2015 Actinic Keratosis: Premalign ant AK: large inflamed hypertrophic type: L medial dorsal hand 08/30/2011 06/08/2015 Neoplasm of Uncertain Behavior (NUB) of skin 06/201206/08/2015 Actinic skin damage 08/30/2011 06/08/2015 Other vitamin B12 deficiency anemia 12/14/2006 06/08/2015 Dysphagia 06/08/2015 Iron deficiency anemia, unspecified 06/08/2015 Nausea alone 06/08/2015 Internal hemorrhoids without mention of complica tion 06/08/2015 Nontoxic multinodular goiter Overview: NEEDS REPEAT U/S late 2006 or early 2007 documented as of this encounter (statuses as of 08/05/2022) [facility]12[facility] History of Past illness Narrative* Problem Noted Date Resolved Date Encounter for screening for malignant neoplasm o f colon 07/29/2015 07/29/2015 Postinflammatory skin changes 11/18/2011 Cryosurgical Scar 11/18/2011 06/08/2015 Epidermal cyst 11/18/2011 06/08/2015 Milial cyst 11/18/2011 06/08/2015 Xerosis cutis 11/18/2011 06/08/2015 Solar Lentigines 08/31/2011 06/08/2015 Actinic Keratosis: Premalign ant AK: large inflamed hypertrophic type: L medial dorsal hand 08/30/2011 06/08/2015 Neoplasm of Uncertain Behavior (NUB) of skin 06/201206/08/2015 Actinic skin damage 08/30/2011 06/08/2015 Other vitamin B12 deficiency anemia 12/14/2006 06/08/2015 Dysphagia 06/08/2015 Iron deficiency anemia, unspecified 06/08/2015 Nausea alone 06/08/2015 Internal hemorrhoids without mention of complica tion 06/08/2015 Nontoxic multinodular goiter Overview: NEEDS REPEAT U/S late 2006 or early 2007 documented as of this encounter (statuses as of 08/09/2022) [facility] History of Past illness Narrative* Problem Noted Date Resolved Date Encounter for screening for malignant neoplasm o f colon 07/29/2015 07/29/2015 Postinflammatory skin changes 11/18/2011 Cryosurgical Scar 11/18/2011 06/08/2015 Epidermal cyst 11/18/2011 06/08/2015 Milial cyst 11/18/2011 06/08/2015 Xerosis cutis 11/18/2011 06/08/2015 Solar Lentigines 08/31/2011 06/08/2015 Actinic Keratosis: Premalign ant AK: large inflamed hypertrophic type: L medial dorsal hand 08/30/2011 06/08/2015 Neoplasm of Uncertain Behavior (NUB) of skin 06/201206/08/2015 Actinic skin damage 08/30/2011 06/08/2015 Other vitamin B12 deficiency anemia 12/14/2006 06/08/2015 Dysphagia 06/08/2015 Iron deficiency anemia, unspecified 06/08/2015 Nausea alone 06/08/2015 Internal hemorrhoids without mention of complica tion 06/08/2015 Nontoxic multinodular goiter Overview: NEEDS REPEAT U/S late 2006 or early 2007 documented as of this encounter (statuses as of 08/10/2022) [facility] History of Past illness Narrative* Problem Noted Date Resolved Date Encounter for screening for malignant neoplasm o f colon 07/29/2015 07/29/2015 Postinflammatory skin changes 11/18/2011 Cryosurgical Scar 11/18/2011 06/08/2015 Epidermal cyst 11/18/2011 06/08/2015 Milial cyst 11/18/2011 06/08/2015 Xerosis cutis 11/18/2011 06/08/2015 Solar Lentigines 08/31/2011 06/08/2015 Actinic Keratosis: Premalign ant AK: large inflamed hypertrophic type: L medial dorsal hand 08/30/2011 06/08/2015 Neoplasm of Uncertain Behavior (NUB) of skin 06/201206/08/2015 Actinic skin damage 08/30/2011 06/08/2015 Other vitamin B12 deficiency anemia 12/14/2006 06/08/2015 Dysphagia 06/08/2015 Iron deficiency anemia, unspecified 06/08/2015 Nausea alone 06/08/2015 Internal hemorrhoids without mention of complica tion 06/08/2015 Nontoxic multinodular goiter Overview: NEEDS REPEAT U/S late 2006 or early 2007 documented as of this encounter (statuses as of 08/13/2022) [facility] History of Past illness Narrative* Problem Noted Date Resolved Date Encounter for screening for malignant neoplasm o f colon 07/29/2015 07/29/2015 Postinflammatory skin changes 11/18/2011 Cryosurgical Scar 11/18/2011 06/08/2015 Epidermal cyst 11/18/2011 06/08/2015 Milial cyst 11/18/2011 06/08/2015 Xerosis cutis 11/18/2011 06/08/2015 Solar Lentigines 08/31/2011 06/08/2015 Actinic Keratosis: Premalign ant AK: large inflamed hypertrophic type: L medial dorsal hand 08/30/2011 06/08/2015 Neoplasm of Uncertain Behavior (NUB) of skin 06/201206/08/2015 Actinic skin damage 08/30/2011 06/08/2015 Other vitamin B12 deficiency anemia 12/14/2006 06/08/2015 Dysphagia 06/08/2015 Iron deficiency anemia, unspecified 06/08/2015 Nausea alone 06/08/2015 Internal hemorrhoids without mention of complica tion 06/08/2015 Nontoxic multinodular goiter Overview: NEEDS REPEAT U/S late 2006 or early 2007 documented as of this encounter (statuses as of 08/19/2022) [facility] History of Past illness Narrative* Problem Noted Date Resolved Date Encounter for screening for malignant neoplasm o f colon 07/29/2015 07/29/2015 Postinflammatory skin changes 11/18/2011 Cryosurgical Scar 11/18/2011 06/08/2015 Epidermal cyst 11/18/2011 06/08/2015 Milial cyst 11/18/2011 06/08/2015 Xerosis cutis 11/18/2011 06/08/2015 Solar Lentigines 08/31/2011 06/08/2015 Actinic Keratosis: Premalign ant AK: large inflamed hypertrophic type: L medial dorsal hand 08/30/2011 06/08/2015 Neoplasm of Uncertain Behavior (NUB) of skin 06/201206/08/2015 Actinic skin damage 08/30/2011 06/08/2015 Other vitamin B12 deficiency anemia 12/14/2006 06/08/2015 Dysphagia 06/08/2015 Iron deficiency anemia, unspecified 06/08/2015 Nausea alone 06/08/2015 Internal hemorrhoids without mention of complica tion 06/08/2015 Nontoxic multinodular goiter Overview: NEEDS REPEAT U/S late 2006 or early 2007 documented as of this encounter (statuses as of 08/23/2022) [facility] History of Past illness Narrative* Problem Noted Date Resolved Date Encounter for screening for malignant neoplasm o f colon 07/29/2015 07/29/2015 Postinflammatory skin changes 11/18/2011 Cryosurgical Scar 11/18/2011 06/08/2015 Epidermal cyst 11/18/2011 06/08/2015 Milial cyst 11/18/2011 06/08/2015 Xerosis cutis 11/18/2011 06/08/2015 Solar Lentigines 08/31/2011 06/08/2015 Actinic Keratosis: Premalign ant AK: large inflamed hypertrophic type: L medial dorsal hand 08/30/2011 06/08/2015 Neoplasm of Uncertain Behavior (NUB) of skin 06/201206/08/2015 Actinic skin damage 08/30/2011 06/08/2015 Other vitamin B12 deficiency anemia 12/14/2006 06/08/2015 Dysphagia 06/08/2015 Iron deficiency anemia, unspecified 06/08/2015 Nausea alone 06/08/2015 Internal hemorrhoids without mention of complica tion 06/08/2015 Nontoxic multinodular goiter Overview: NEEDS REPEAT U/S late 2006 or early 2007 documented as of this encounter (statuses as of 08/24/2022) [facility] History of Past illness Narrative* Problem Noted Date Resolved Date Encounter for screening for malignant neoplasm o f colon 07/29/2015 07/29/2015 Postinflammatory skin changes 11/18/2011 Cryosurgical Scar 11/18/2011 06/08/2015 Epidermal cyst 11/18/2011 06/08/2015 Milial cyst 11/18/2011 06/08/2015 Xerosis cutis 11/18/2011 06/08/2015 Solar Lentigines 08/31/2011 06/08/2015 Actinic Keratosis: Premalign ant AK: large inflamed hypertrophic type: L medial dorsal hand 08/30/2011 06/08/2015 Neoplasm of Uncertain Behavior (NUB) of skin 06/201206/08/2015 Actinic skin damage 08/30/2011 06/08/2015 Other vitamin B12 deficiency anemia 12/14/2006 06/08/2015 Dysphagia 06/08/2015 Iron deficiency anemia, unspecified 06/08/2015 Nausea alone 06/08/2015 Internal hemorrhoids without mention of complica tion 06/08/2015 Nontoxic multinodular goiter Overview: NEEDS REPEAT U/S late 2006 or early 2007 documented as of this encounter (statuses as of 08/25/2022) [facility] History of Past illness Narrative* Problem Noted Date Resolved Date Encounter for screening for malignant neoplasm o f colon 07/29/2015 07/29/2015 Postinflammatory skin changes 11/18/2011 Cryosurgical Scar 11/18/2011 06/08/2015 Epidermal cyst 11/18/2011 06/08/2015 Milial cyst 11/18/2011 06/08/2015 Xerosis cutis 11/18/2011 06/08/2015 Solar Lentigines 08/31/2011 06/08/2015 Actinic Keratosis: Premalign ant AK: large inflamed hypertrophic type: L medial dorsal hand 08/30/2011 06/08/2015 Neoplasm of Uncertain Behavior (NUB) of skin 06/201206/08/2015 Actinic skin damage 08/30/2011 06/08/2015 Other vitamin B12 deficiency anemia 12/14/2006 06/08/2015 Dysphagia 06/08/2015 Iron deficiency anemia, unspecified 06/08/2015 Nausea alone 06/08/2015 Internal hemorrhoids without mention of complica tion 06/08/2015 Nontoxic multinodular goiter Overview: NEEDS REPEAT U/S late 2006 or early 2007 documented as of this encounter (statuses as of 08/25/2022) [facility] History of Past illness Narrative* Problem Noted Date Resolved Date Encounter for screening for malignant neoplasm o f colon 07/29/2015 07/29/2015 Postinflammatory skin changes 11/18/2011 Cryosurgical Scar 11/18/2011 06/08/2015 Epidermal cyst 11/18/2011 06/08/2015 Milial cyst 11/18/2011 06/08/2015 Xerosis cutis 11/18/2011 06/08/2015 Solar Lentigines 08/31/2011 06/08/2015 Actinic Keratosis: Premalign ant AK: large inflamed hypertrophic type: L medial dorsal hand 08/30/2011 06/08/2015 Neoplasm of Uncertain Behavior (NUB) of skin 06/201206/08/2015 Actinic skin damage 08/30/2011 06/08/2015 Other vitamin B12 deficiency anemia 12/14/2006 06/08/2015 Dysphagia 06/08/2015 Iron deficiency anemia, unspecified 06/08/2015 Nausea alone 06/08/2015 Internal hemorrhoids without mention of complica tion 06/08/2015 Nontoxic multinodular goiter Overview: NEEDS REPEAT U/S late 2006 or early 2007 documented as of this encounter (statuses as of 08/28/2022) [facility] History of Past illness Narrative* Problem Noted Date Resolved Date Encounter for screening for malignant neoplasm o f colon 07/29/2015 07/29/2015 Postinflammatory skin changes 11/18/2011 Cryosurgical Scar 11/18/2011 06/08/2015 Epidermal cyst 11/18/2011 06/08/2015 Milial cyst 11/18/2011 06/08/2015 Xerosis cutis 11/18/2011 06/08/2015 Solar Lentigines 08/31/2011 06/08/2015 Actinic Keratosis: Premalign ant AK: large inflamed hypertrophic type: L medial dorsal hand 08/30/2011 06/08/2015 Neoplasm of Uncertain Behavior (NUB) of skin 06/201206/08/2015 Actinic skin damage 08/30/2011 06/08/2015 Other vitamin B12 deficiency anemia 12/14/2006 06/08/2015 Dysphagia 06/08/2015 Iron deficiency anemia, unspecified 06/08/2015 Nausea alone 06/08/2015 Internal hemorrhoids without mention of complica tion 06/08/2015 Nontoxic multinodular goiter Overview: NEEDS REPEAT U/S late 2006 or early 2007 documented as of this encounter (statuses as of 08/29/2022) [facility] History of Past illness Narrative* Problem Noted Date Resolved Date Encounter for screening for malignant neoplasm o f colon 07/29/2015 07/29/2015 Postinflammatory skin changes 11/18/2011 Cryosurgical Scar 11/18/2011 06/08/2015 Epidermal cyst 11/18/2011 06/08/2015 Milial cyst 11/18/2011 06/08/2015 Xerosis cutis 11/18/2011 06/08/2015 Solar Lentigines 08/31/2011 06/08/2015 Actinic Keratosis: Premalign ant AK: large inflamed hypertrophic type: L medial dorsal hand 08/30/2011 06/08/2015 Neoplasm of Uncertain Behavior (NUB) of skin 06/201206/08/2015 Actinic skin damage 08/30/2011 06/08/2015 Other vitamin B12 deficiency anemia 12/14/2006 06/08/2015 Dysphagia 06/08/2015 Iron deficiency anemia, unspecified 06/08/2015 Nausea alone 06/08/2015 Internal hemorrhoids without mention of complica tion 06/08/2015 Nontoxic multinodular goiter Overview: NEEDS REPEAT U/S late 2006 or early 2007 documented as of this encounter (statuses as of 08/30/2022) [facility] Onset Date Resolution Status UTI (urinary tract infection) acute [facility] Work Phone: Evaluation note* Skin: Warm and dry, no lesions, no rashesEyes: PERRL, EOMI, clear scleraENMT: mucous membranes moist, no apparent injury, no lesions seenHead/Neck: Neck supple, no apparent injury, thyroid without mass or tenderness, No JVD, trachea midline, no bruitsRespiratory/Thorax: Patent airways, CTAB, normalbreath sounds with good chest expansion, thorax symmetricCardiovascular: Rate and rhythm is regular, normal S1-S2, no gallop or pericardial rub, 1/6 systolic ejection murmur left sternal border, no CHF.Extremities: normal extremities, no cyanosis edema, contusions or wounds, no clubbingGenitourinary: Not examinedMusculoskeletal: Remote bilateral total knee replacement.Neurological: Awake and alert, dysarthria, left facial droop, flaccid left upper arm. Power decreased in left lower extremity 3/5. No sensory impairment, tendon reflexes are brisk in the lower extremities and extensor plantar onthe left. Gait was not tested.Breast: Not examinedLymphatic: No significant lymphadenopathyPsychological: Appropriate mood and behaviorGastrointestinal: Nondistended, soft, non-tender, no rebound tenderness or guarding, no masses palpable, no organomegaly, +BS, no bruitsConstitutional: Awake and alert, comfortable, cooperative, afebrile [facility] Diagnosis Onset Date Resolution Status Prediabetes acute Cerebrovascular accident (CV A) of right basal ganglia noneactive Post-nasal drip noneactive Establishing care with new doctor, encounter for noneactive Moderate persistent asthma i n adult without complication noneactive Essential hypertension nonea ctive Anxiety and depression nonea ctive [facility] Work Phone: Evaluation note* Diagnosis Onset Date Resolution Status Prediabetes acute Multiple thyroid nodules chr onic Cerebrovascular accident (CV A) of right basal ganglia noneactive Moderate persistent asthma i n adult without complication noneactive Essential hypertension nonea ctive Anxiety and depression nonea ctive Left shoulder pain noneactiv e Adhesive capsulitis of left shoulder acute Left shoulder pain acute Brain mass noneactive Brain tumor acute Melanoma of scalp chronic Brain tumor acute Melanoma of scalp chronic Prediabetes acute Multiple thyroid nodules chr onic Cerebrovascular accident (CV A) of right basal ganglia noneactive Moderate persistent asthma i n adult without complication noneactive Osteopenia noneactive Essential hypertension nonea ctive Brain mass noneactive Anxiety and depression nonea ctive Left shoulder pain noneactiv e [facility] Work Phone: Evaluation note* Diagnosis Onset Date Resolution Status Prediabetes acute Multiple thyroid nodules chr onic Cerebrovascular accident (CV A) of right basal ganglia noneactive Moderate persistent asthma i n adult without complication noneactive Essential hypertension nonea ctive Anxiety and depression nonea ctive Left shoulder pain noneactiv e Adhesive capsulitis of left shoulder acute Left shoulder pain acute Brain mass noneactive Brain tumor acute Melanoma of scalp chronic Brain tumor acute Melanoma of scalp chronic Prediabetes acute Multiple thyroid nodules chr onic Cerebrovascular accident (CV A) of right basal ganglia noneactive Moderate persistent asthma i n adult without complication noneactive Osteopenia noneactive Essential hypertension nonea ctive Brain mass noneactive Anxiety and depression nonea ctive Left shoulder pain noneactiv e Prediabetes acute Eyelid abnormality noneactiv e Cerebrovascular accident (CV A) of right basal ganglia noneactive Moderate persistent asthma i n adult without complication noneactive Osteopenia noneactive Preoperative examination non eactive Essential hypertension nonea ctive Brain mass noneactive Anxiety and depression nonea ctive [facility] Work Phone: Evaluation note* Diagnosis Onset Date Resolution Status Prediabetes acute Multiple thyroid nodules chr onic Cerebrovascular accident (CV A) of right basal ganglia noneactive Immunization due noneactive Moderate persistent asthma i n adult without complication noneactive Recurrent UTI noneactive Osteopenia noneactive Essential hypertension nonea ctive Anxiety and depression nonea ctive Constipation by delayed colonic transit noneactive Acute URI noneactive [facility] Work Phone: Evaluation note* Diagnosis Onset Date Resolution Status Prediabetes acute Multiple thyroid nodules chr onic Cerebrovascular accident (CV A) of right basal ganglia noneactive Immunization due noneactive Moderate persistent asthma i n adult without complication noneactive Recurrent UTI noneactive Osteopenia noneactive Essential hypertension nonea ctive Anxiety and depression nonea ctive Constipation by delayed colonic transit noneactive Acute URI noneactive Herpes simplex acute Erysipelas resolved Erysipelas resolved [facility] Work Phone: Evaluation note* Diagnosis Abdominal pain- Primary Abdominal pain, unspecified site Colitis Other and unspecified noninfectious gastroenteritis and colitis Colitis Other and unspecified noninfectious gastroenteritis and colitis documented in this encounter [facility] Work Phone: Evaluation noteNo assessment information available [facility] Work Phone: Patient's home Plan of care note* Visit Details Visit Type -SN SOC Discipline -Shelter Problems Problem Description Start Date Status Goals Interve ntions Medication Education Disciplines: Skilled Services 07/26/2022 Active 1 goal linked to scheduled/document ed intervention 1 goal intervention scheduled/documente d in this visit Mental Health Disciplines: Skilled Services 07/26/2022 Active 1 goal linked to scheduled/document ed intervention 1 goal intervention scheduled/documente d in this visit Physician Specific Parameters Disciplines: Skilled Services 07/26/2022 Active 1 goal linked to scheduled/document ed intervention 1 goal intervention scheduled/documente d in this visit Pain Disciplines: Skilled Services 07/26/2022 Active 1 goal linked to scheduled/document ed intervention 1 goal intervention scheduled/documente d in this visit Nutrition/Hydra tion Disciplines: Skilled Services 07/26/2022 Active 1 goal linked to scheduled/document ed intervention 1 goal intervention scheduled/documente d in this visit Discharge Disciplines: Skilled Services 07/26/2022 Active 1 goal linked to scheduled/document ed intervention 1 goal intervention scheduled/documente d in this visit Advance Directives Disciplines: Skilled Services 07/26/2022 Active 1 goal linked to scheduled/document ed intervention 1 goal intervention scheduled/documente d in this visit SN Neurological Disciplines: SN 07/26/2022 Active 1 goal linked to scheduled/document ed intervention 1 goal intervention scheduled/documente d in this visit SN Learning Assessment Disciplines: SN 07/26/2022 Active 1 goal linked to scheduled/document ed intervention 1 goal intervention scheduled/documente d in this visit Goals Goal Associated Problem Outcome Goal Met? Visit Notes Patient/caregiver will demonstrate ability to obtain, store, identify and administer ordered medications, keep accurate medication list in home, and adhere to medication schedule Description: Patient/caregiver will demonstrate ability to obtain, store, identify and administer ordered medications, keep accurate medication list in home, and adhere to medication schedule by 09/23/22. Medication Education No Improved management of mental health condition(s) Description: Patient/caregiver will teach back mental health symptom identification and management techniques by 08/09/22. Mental Health No Patient to maintain parameters within physician-specified ranges throughout certification period Physician Specific Parameters No Manage Pain Description: Patient/caregiver will verbalize knowledge and understanding of appropriate techniques to control pain, including pain medication and non-pharmacological techniques. Patient will verbalize or demonstrate an acceptable level of pain as evidenced by a pain score of 0/10 and improvement in ability to perform activities of daily living to be achieved by 09/23/22. Pain No Manage Nutrition/Hydration Description: Patient/caregiver will verbalize/demonstrate knowledge of prescribed diet and/or healthy nutrition to be achieved by 09/23/22. Nutrition/Hydration No Manage discharge planning Description: Patient/caregiver will verbalize understanding of ongoing discharge plan provided related to disease management, arrangements for outpatient and/or community services, obtaining medications, supplies, and DME, as needed throughout certification period. Discharge No Patient/caregiver will make healthcare providers aware of and any changes to Advance Directives throughout certification period Advance Directives No Patient demonstrates baseline or optimal neurological functioning prior to discharge Description: Patient and/or caregiver will verbalize and/or demonstrate understanding of signs and symptoms of neurological disease process and management of alf effects and risk factors by 08/09/22,. SN Neurological No Demonstrate understanding of education Description: Patient and/or caregiver will verbalize understanding of educational instruction provided throughout certification period. SN Learning Assessment No Interventions Intervention Associated Problem/Goal Status Variance Visit Notes Medication Education Description: Evaluate/instruct patient/caregiver on obtaining, storing, identifying and administering ordered medications as well as keeping accurate medication list in the home and adhereing to medication schedule Problem:Medication Education Goal:Patient/caregiv er will demonstrate ability to obtain, store, identify and administer ordered medications, keep accurate medication list in home, and adhere to medication schedule Completed Patient instructed on importance of keeping accurate medication list in home, adhering to medication schedule, proper storage of medications, Medication, route, dose, frequency, purpose, and side effects of antihypertensive/inhal er medications, disposing of old and out of date medications and med product planner set up. Patient/caregiver will teach back mental health symptom identification and management strategies Problem:Mental Health Goal:Improved management of mental health condition(s) Completed Patient instructed on the following: signs and symptoms of increased anxiety and when to report to physician. SPO2 Description: Notify Dr. Astorga if pulse ox is <92% at rest. Problem:Physician Specific Parameters Goal:Patient to maintain parameters within physician-specified ranges throughout certification period Completed Instruct on pain and instruct on strategies to control pain Problem:Pain Goal:Manage Pain Completed patient instructed on techniques to control pain including Pharmacological measures. Define patient s appetite/hydration status and implement strategies to improve compliance with prescribed diet and/or healthy nutrition. Problem:Nutrition/Hy dration Goal:Manage Nutrition/Hydration Completed reinforced patient on implementing strategies to comply with prescribed diet, healthy nutrition and adequate hydration Instruct on ongoing discharge plan Problem:Discharge Goal:Manage discharge planning Completed Ongoing Discharge plan: Discharge plan discussed with patient including frequency and duration for home SN and plan for transition to: caregiver assistance. Determine patient's Advance Directive Status Description: Patient does not have advance directives. Patient/Caregiver declined Advance Directive information. Problem:Advance Directives Goal:Patient/caregiv er will make healthcare providers aware of and any changes to Advance Directives throughout certification period Completed Discussed Advance Directives with Patient and/or Caregiver. Referred patient to Home Care handbook for further information on Healthcare DPOA & Living Will. 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 Problem:SN Neurological Goal:Patient demonstrates baseline or optimal neurological functioning prior to discharge Completed patient instructed on disease process and risk factors and when to seek medical attention and when to call 911. Instruct and educate on knowledge deficits Problem:SN Learning Assessment Goal:Demonstrate understanding of education Completed patient verbalize and/or demonstrate understanding of nursing education completed today. Education methods include: verbal cues. Further education required to improve knowledge and compliance with fall prevention/home safety strategies and neurological disease management. documented in this encounter [facility]'s home Plan of care note* Visit Details Visit Type -OT EVAL Discipline -Occupational Therapy Problems Problem Description Start Date Status Goals Interve ntions OT Referral Disciplines: Skilled Services 07/26/2022 Resolved on 07/27/2022 1 goal linked to scheduled/documen derick intervention 1 goal intervention scheduled/document ed in this visit Physician Specific Parameters Disciplines: Skilled Services 07/26/2022 Active 1 goal linked to scheduled/documen derick intervention 1 goal intervention scheduled/document ed in this visit Pain Disciplines: Skilled Services 07/26/2022 Active 1 goal linked to scheduled/documen derick intervention 1 goal intervention scheduled/document ed in this visit OT Learning Assessment Disciplines: OT 07/27/2022 Active 1 goal linked to scheduled/documen derick intervention 1 goal intervention scheduled/document ed in this visit OT Functional Transfers Disciplines: OT 07/27/2022 Active 1 goal linked to scheduled/documen derick intervention 1 goal intervention scheduled/document ed in this visit OT Neurologic Condition Disciplines: OT 07/27/2022 Active 1 goal linked to scheduled/documemarifer derick intervention 1 goal intervention scheduled/document ed in this visit Goals Goal Associated Problem Outcome Goal Met? Visit Notes Patient will be referred to additional discipline as needed OT Referral Completed Yes Patient to maintain parameters within physician-specified ranges throughout certification period Physician Specific Parameters No Manage Pain Description: Patient/caregiver will verbalize knowledge and understanding of appropriate techniques to control pain, including pain medication and non-pharmacological techniques. Patient will verbalize or demonstrate an acceptable level of pain as evidenced by a pain score of 0/10 and improvement in ability to perform activities of daily living to be achieved by 09/23/22. Pain No Demonstrate understanding of education Description: Patient and/or caregiver will understand educational instruction to be achieved by 09/16/21. OT Learning Assessment No Improved Functional Transfers Description: patient will demonstrate safe transfers to/from toilet/shower with independent assistance and no verbal cues with use of DME to be achieved by 08/19/22. OT Functional Transfers No Manage Neurologic Condition Description: Improve patient and/or caregiver understanding of neurologic condition and management, as evidenced by patient and/or caregiver ability to verbalize, demonstrate, teach back of instruction at a minimum of two strategies. To be achieved by 08/19/22. OT Neurologic Condition No Interventions Intervention Associated Problem/Goal Status Variance Visit Notes OT evaluation and treatment Description: Evaluate and treat for the assessment of functional deficits and establishment of appropriate interventions and education to address: I/ADL training, DME/adaptive equipment recommendations, safety awareness, energy conservation and home safety and falls prevention recommendations. Problem:OT Referral Goal:Patient will be referred to additional discipline as needed Completed SPO2 Description: Notify Dr. Astorga if pulse ox is <92% at rest. Problem:Physician Specific Parameters Goal:Patient to maintain parameters within physician-specified ranges throughout certification period Completed Instruct on pain and instruct on strategies to control pain Problem:Pain Goal:Manage Pain Completed patient instructed on techniques to control pain including Pharmacological measures and Non-Pharmacological measures; rest and positioning/elevation. Instruct and educate on knowledge deficits Problem:OT Learning Assessment Goal:Demonstrate understanding of education Completed Education methods include: verbal cues. Patient/Caregiver require further education to improve knowledge and compliance with fall prevention strategies, balance training, home safety, functional transfers and home exercise program. Transfer Training Problem:OT Functional Transfers Goal:Improved Functional Transfers Completed Instruct patient/caregiver on safe transfers and proper techniques including how to perform to and from toilet superv and shower/tub with min assistance and verbal and tactile cues for technique and safety . education and training on the following adaptive equipment/durable medical equipment:grab bar(s) and shower chair. pt educated to back up to shower stall and step back into shower with right le and then min asst to pivot to chair the when exiting min asst to pivot upon standing from shower chair to face walker then out with left le and cues for high march over lip of shower to step down. Educated spouse on technique however dtr will be one assting pt with shower transfer Instruct on self-management of post surgical and/or non-surgical neurologic intervention Problem:OT Neurologic Condition Goal:Manage Neurologic Condition Completed Instruct patient on neurological condition of cva including monitoring and reporting symptoms of elevated blood pressure, headaches, speech changes, mental status changes, vision changes, weakness and impaired movement and instruct on neuromuscular re-education, tips for caregivers, risks for contractures, when to call provider and when to call 911. documented in this encounter [facility]'s home Plan of care note* Visit Details Visit Type -PT EVAL Discipline -Physical Therapy Problems Problem Description Start Date Status Goals Interve ntions Medication Education Disciplines: Skilled Services 07/26/2022 Active 1 goal linked to scheduled/docume nted intervention 1 goal intervention scheduled/documen derick in this visit PT Referral Disciplines: Skilled Services 07/26/2022 Resolved on 07/28/2022 1 goal linked to scheduled/docume nted intervention 1 goal intervention scheduled/documen derick in this visit Physician Specific Parameters Disciplines: Skilled Services 07/26/2022 Active 1 goal linked to scheduled/docume nted intervention 1 goal intervention scheduled/documen derick in this visit PT Neurologic Condition Disciplines: PT 07/28/2022 Active 1 goal linked to scheduled/docume nted intervention 1 goal intervention scheduled/documen derick in this visit PT Learning Assessment Disciplines: PT 07/28/2022 Active 1 goal linked to scheduled/docume nted intervention 1 goal intervention scheduled/documen derick in this visit PT Cardiovascular Disease Disciplines: PT 07/28/2022 Active 1 goal linked to scheduled/docume nted intervention 1 goal intervention scheduled/documen derick in this visit Goals Goal Associated Problem Outcome Goal Met? Visit Notes Patient/caregiver will demonstrate ability to obtain, store, identify and administer ordered medications, keep accurate medication list in home, and adhere to medication schedule Description: Patient/caregiver will demonstrate ability to obtain, store, identify and administer ordered medications, keep accurate medication list in home, and adhere to medication schedule by 09/23/22. Medication Education No Patient will be referred to additional discipline as needed PT Referral Completed Yes Patient to maintain parameters within physician-specified ranges throughout certification period Physician Specific Parameters No Manage Neurologic Condition Description: Improve patient and/or caregiver understanding of post surgical and/or non-surgical neurologic intervention management as evidenced by patient and/or caregiver able to verbalize, demonstrate, and teach back instruction, to be achieved by 09/23/22. PT Neurologic Condition No Demonstrate understanding of education Description: Patient and/or caregiver will understand educational instruction to be achieved by 09/23/22. PT Learning Assessment No Manage Primary Cardiovascular Disease Description: Improve patient and/or caregiver understanding of primary cardiovascular disease management as evidenced by patient and/or caregiver able to verbalize, demonstrate, and teach back instruction, to be achieved by 09/23/22. PT Cardiovascular Disease No Interventions Intervention Associated Problem/Goal Status Variance Visit Notes Medication Education Description: Evaluate/instruct patient/caregiver on obtaining, storing, identifying and administering ordered medications as well as keeping accurate medication list in the home and adhereing to medication schedule Problem:Medication Education Goal:Patient/caregive r will demonstrate ability to obtain, store, identify and administer ordered medications, keep accurate medication list in home, and adhere to medication schedule Completed Patient instructed on importance of keeping accurate medication list in home and adhering to medication schedule. PT evaluation and treatment Description: Evaluate and treat for the assessment of functional deficits and establishment of appropriate interventions and education, including recommendations for functional mobility training, balance training for fall reduction, and strengthening. Problem:PT Referral Goal:Patient will be referred to additional discipline as needed Completed SPO2 Description: Notify Dr. Astorga if pulse ox is <92% at rest. Problem:Physician Specific Parameters Goal:Patient to maintain parameters within physician-specified ranges throughout certification period Completed Instruct on self-management of post surgical and/or non-surgical neurologic intervention Problem:PT Neurologic Condition Goal:Manage Neurologic Condition Completed patient instructed on instructed on when to call [id number] (balance, eyes, face, arms, speech, time) and coping strategies for living with stroke. Instruct and educate on knowledge deficits Problem:PT Learning Assessment Goal:Demonstrate understanding of education Completed patient verbalize and/or demonstrate understanding of physical therapy education including fall prevention strategies, home safety, functional activity and home exercise program. Education methods include: verbal cues. Further education required to improve knowledge and compliance with fall prevention strategies, home safety, functional activity and home exercise program. Instruct on signs, symptoms, and management of primary cardiovascular disease Problem:PT Cardiovascular Disease Goal:Manage Primary Cardiovascular Disease Completed Instructed patient on blood pressure tracking. [facility] Visit Details Visit Type -OT ROUTINE Discipline -Occupational Therapy Problems Problem Description Start Date Status Goals Interve ntions Physician Specific Parameters Disciplines: Skilled Services 07/26/2022 Active 1 goal linked to scheduled/document ed intervention 1 goal intervention scheduled/documente d in this visit Pain Disciplines: Skilled Services 07/26/2022 Active 1 goal linked to scheduled/document ed intervention 1 goal intervention scheduled/documente d in this visit Discharge Disciplines: Skilled Services 07/26/2022 Active 1 goal linked to scheduled/document ed intervention 1 goal intervention scheduled/documente d in this visit OT Learning Assessment Disciplines: OT 07/27/2022 Active 1 goal linked to scheduled/document ed intervention 1 goal intervention scheduled/documente d in this visit OT Upper Body Strength and/or ROM Disciplines: OT 07/27/2022 Active 1 goal linked to scheduled/document ed intervention 1 goal intervention scheduled/documente d in this visit Goals Goal Associated Problem Outcome Goal Met? Visit Notes Patient to maintain parameters within physician-specified ranges throughout certification period Physician Specific Parameters No Manage Pain Description: Patient/caregiver will verbalize knowledge and understanding of appropriate techniques to control pain, including pain medication and non-pharmacological techniques. Patient will verbalize or demonstrate an acceptable level of pain as evidenced by a pain score of 0/10 and improvement in ability to perform activities of daily living to be achieved by 09/23/22. Pain No Manage discharge planning Description: Patient/caregiver will verbalize understanding of ongoing discharge plan provided related to disease management, arrangements for outpatient and/or community services, obtaining medications, supplies, and DME, as needed throughout certification period. Discharge No Demonstrate understanding of education Description: Patient and/or caregiver will understand educational instruction to be achieved by 09/16/21. OT Learning Assessment No Improved Strength and/or ROM Description: patient will verbalize/demonstrate independence with home exercise program, to improve functional performance, to be achieved by 08/19/22. Patient will demonstrate improved left shoulder and elbow active range of motion to shoulder to 90 degrees and elbow flex to 110 degrees full gross grasp and thumb opposition to index and middle finger, to be achieved by 09/16/21. OT Upper Body Strength and/or ROM No Interventions Intervention Associated Problem/Goal Status Variance Visit Notes SPO2 Description: Notify Dr. Astorga if pulse ox is <92% at rest. Problem:Physician Specific Parameters Goal:Patient to maintain parameters within physician-specified ranges throughout certification period Completed Instruct on pain and instruct on strategies to control pain Problem:Pain Goal:Manage Pain Completed patient instructed on techniques to control pain including Non-Pharmacological measures; rest. Instruct on ongoing discharge plan Problem:Discharge Goal:Manage discharge planning Completed Ongoing Discharge plan: Discharge plan discussed with patient including frequency and duration for home OT and plan for transition to: live independently at home without ongoing services. Instruct and educate on knowledge deficits Problem:OT Learning Assessment Goal:Demonstrate understanding of education Completed Education methods include: verbal cues. Patient/Caregiver require further education to improve knowledge and compliance with fall prevention strategies. Therapeutic Exercises Problem:OT Upper Body Strength and/or ROM Goal:Improved Strength and/or ROM Completed Instructed patient/caregiver on therapeutic exercise including: upper body exercises: Pt instructed in PROM and instructed to have cg complete for L UE sitting and laying down to maintain jt mobiity. Pt instructed in AROM with gravity for L UE; table top antigravity plane for horz shoulder ab/ad; scapula pro/retract; and clock and counter clock for rotator cuff strengthening, pt issued foam block with instructions for finger ext, baseboard heating installer and release and pinch. Pt instructed to complete ex 10 reps 1 - 2 daily. Written instructions provided. [facility] Visit Details Visit Type -MRI SPECIALIST EVAL Discipline -Speech Language Pathology Problems Problem Description Start Date Status Goals Interve ntions Physician Specific Parameters Disciplines: Skilled Services 07/26/2022 Active 1 goal linked to scheduled/document ed intervention 1 goal intervention scheduled/documente d in this visit Pain Disciplines: Skilled Services 07/26/2022 Active 1 goal linked to scheduled/document ed intervention 1 goal intervention scheduled/documente d in this visit Discharge Disciplines: Skilled Services 07/26/2022 Active 1 goal linked to scheduled/document ed intervention 1 goal intervention scheduled/documente d in this visit MRI SPECIALIST Referral Disciplines: Skilled Services 07/31/2022 Active 1 goal linked to scheduled/document ed intervention 1 goal intervention scheduled/documente d in this visit MRI SPECIALIST Learning Assessment Disciplines: MRI SPECIALIST 08/01/2022 Active 1 goal linked to scheduled/document ed intervention 1 goal intervention scheduled/documente d in this visit MRI SPECIALIST Speech Production/Inte lligibility Disciplines: MRI SPECIALIST 08/01/2022 Active 1 goal linked to scheduled/document ed intervention 1 goal intervention scheduled/documente d in this visit MRI SPECIALIST Speech Improve Oral Motor Skills STG Disciplines: MRI SPECIALIST 08/01/2022 Active 1 goal linked to scheduled/document ed intervention 1 goal intervention scheduled/documente d in this visit Goals Goal Associated Problem Outcome Goal Met? Visit Notes Patient to maintain parameters within physician-specified ranges throughout certification period Physician Specific Parameters No Manage Pain Description: Patient/caregiver will verbalize knowledge and understanding of appropriate techniques to control pain, including pain medication and non-pharmacological techniques. Patient will verbalize or demonstrate an acceptable level of pain as evidenced by a pain score of 0/10 and improvement in ability to perform activities of daily living to be achieved by 09/23/22. Pain No Manage discharge planning Description: Patient/caregiver will verbalize understanding of ongoing discharge plan provided related to disease management, arrangements for outpatient and/or community services, obtaining medications, supplies, and DME, as needed throughout certification period. Discharge No Patient will be referred to additional discipline as needed MRI SPECIALIST Referral No Patient/Caregiver Demonstrates understanding of education Description: patient will understand educational instruction, to be achieved by 08/26/22. MRI SPECIALIST Learning Assessment No Improve Speech Intelligibility Description: Patient will improve speech intelligibility in conversation with/in 100% accuracy with no cues, to facilitate communication with others. To be achieved by 08/19/22. MRI SPECIALIST Speech Production/Intelligibilit y No Improve Oral Motor Skills STG Description: Patient will demonstrate improved oral range of motion and coordination for labial, buccal, facial and jaw muscles with no cues with/in 95% accuracy. To be achieved by 08/26/22. MRI SPECIALIST Speech Improve Oral Motor Skills STG No Interventions Intervention Associated Problem/Goal Status Variance Visit Notes SPO2 Description: Notify Dr. Astorga if pulse ox is <92% at rest. Problem:Physician Specific Parameters Goal:Patient to maintain parameters within physician-specified ranges throughout certification period Completed Instruct on pain and instruct on strategies to control pain Problem:Pain Goal:Manage Pain Completed patient instructed on techniques to control pain including Pharmacological measures as needed Instruct on ongoing discharge plan Problem:Discharge Goal:Manage discharge planning Completed Ongoing Discharge plan: Discharge plan discussed with patient including frequency and duration for home ST and plan for transition to: live independently at home without ongoing services. MRI SPECIALIST evaluation and treatment Description: ST Referral eval and treat for Facial muscle weakness. Problem:MRI SPECIALIST Referral Goal:Patient will be referred to additional discipline as needed Completed Assessment of patient/caregiver knowledge deficit and educational instruction Problem:MRI SPECIALIST Learning Assessment Goal:Patient/Caregive r Demonstrates understanding of education Completed Education methods include: verbal cues and written instructions. Further education required to improve knowledge and compliance with speech intelligibility strategies, home exercise program and oral motor treatment. Articulation Instruction Intelligibility Training Motor Planning Precision Training Speech Intelligiblity Exercise Problem:MRI SPECIALIST Speech Production/Intelligib ility Goal:Improve Speech Intelligibility Completed MRI SPECIALIST instructed patient to overarticulation and slow rate of speech when fatigued to improve intelligibility in conversation with moderate cues Oral Motor Exercise Problem:MRI SPECIALIST Speech Improve Oral Motor Skills STG Goal:Improve Oral Motor Skills STG Completed MRI SPECIALIST instructed patient to complete the following oral range of motion exercises: labial protrusion, labial retraction, labial protrusion and retraction in alternation, jaw open with lip round and to initiate vibratory stimulation to buccal muscles with images provided for execution of the technique. will need continued intervention from screen cleaner to assure is being completed correctly, patient completed with/in 75% accuracy. [facility] Visit Details Visit Type -RAND ROUTINE Discipline -Occupational Therapy Problems Problem Description Start Date Status Goals Interve ntions Medication Education Disciplines: Skilled Services 07/26/2022 Active 1 goal linked to scheduled/document ed intervention 1 goal intervention scheduled/documente d in this visit Physician Specific Parameters Disciplines: Skilled Services 07/26/2022 Active 1 goal linked to scheduled/document ed intervention 1 goal intervention scheduled/documente d in this visit Pain Disciplines: Skilled Services 07/26/2022 Active 1 goal linked to scheduled/document ed intervention 1 goal intervention scheduled/documente d in this visit Discharge Disciplines: Skilled Services 07/26/2022 Active 1 goal linked to scheduled/document ed intervention 1 goal intervention scheduled/documente d in this visit OT Learning Assessment Disciplines: OT 07/27/2022 Active 1 goal linked to scheduled/document ed intervention 1 goal intervention scheduled/documente d in this visit OT Upper Body Strength and/or ROM Disciplines: OT 07/27/2022 Active 1 goal linked to scheduled/document ed intervention 1 goal intervention scheduled/documente d in this visit Goals Goal Associated Problem Outcome Goal Met? Visit Notes Patient/caregiver will demonstrate ability to obtain, store, identify and administer ordered medications, keep accurate medication list in home, and adhere to medication schedule Description: Patient/caregiver will demonstrate ability to obtain, store, identify and administer ordered medications, keep accurate medication list in home, and adhere to medication schedule by 09/23/22. Medication Education No Patient to maintain parameters within physician-specified ranges throughout certification period Physician Specific Parameters No Manage Pain Description: Patient/caregiver will verbalize knowledge and understanding of appropriate techniques to control pain, including pain medication and non-pharmacological techniques. Patient will verbalize or demonstrate an acceptable level of pain as evidenced by a pain score of 0/10 and improvement in ability to perform activities of daily living to be achieved by 09/23/22. Pain No Manage discharge planning Description: Patient/caregiver will verbalize understanding of ongoing discharge plan provided related to disease management, arrangements for outpatient and/or community services, obtaining medications, supplies, and DME, as needed throughout certification period. Discharge No Demonstrate understanding of education Description: Patient and/or caregiver will understand educational instruction to be achieved by 09/16/21. OT Learning Assessment No Improved Strength and/or ROM Description: patient will verbalize/demonstrate independence with home exercise program, to improve functional performance, to be achieved by 08/19/22. Patient will demonstrate improved left shoulder and elbow active range of motion to shoulder to 90 degrees and elbow flex to 110 degrees full gross grasp and thumb opposition to index and middle finger, to be achieved by 09/16/21. OT Upper Body Strength and/or ROM No Interventions Intervention Associated Problem/Goal Status Variance Visit Notes Medication Education Description: Evaluate/instruct patient/caregiver on obtaining, storing, identifying and administering ordered medications as well as keeping accurate medication list in the home and adhereing to medication schedule Problem:Medication Education Goal:Patient/caregiver will demonstrate ability to obtain, store, identify and administer ordered medications, keep accurate medication list in home, and adhere to medication schedule Completed Patient instructed on importance of keeping accurate medication list in home, adhering to medication schedule, proper storage of medications, disposing of old and out of date medications and how to order refills. SPO2 Description: Notify Dr. Astorga if pulse ox is <92% at rest. Problem:Physician Specific Parameters Goal:Patient to maintain parameters within physician-specified ranges throughout certification period Completed Instruct on pain and instruct on strategies to control pain Problem:Pain Goal:Manage Pain Completed Pt. reporting no pain. Instruct on ongoing discharge plan Problem:Discharge Goal:Manage discharge planning Completed Ongoing Discharge plan: Discharge plan discussed with patient including frequency and duration for home OT and plan for transition to: caregiver assistance. Instruct and educate on knowledge deficits Problem:OT Learning Assessment Goal:Demonstrate understanding of education Completed Education methods include: verbal cues. Patient/Caregiver require further education to improve knowledge and compliance with fall prevention strategies, infection control precautions, home exercise program, endurance training and discharge planning. Therapeutic Exercises Problem:OT Upper Body Strength and/or ROM Goal:Improved Strength and/or ROM Completed Instructed patient/caregiver on therapeutic exercise including: upper body exercises: Seated Towel slides at table top with MIN A for completion with side to side, forward/backward, counter clock and clock house. Seated a t table top L UE weight bearing on blue foam resistive sponge, index/thumb pinch, full grasp and release. L UE Abduction/adduction with AAROM table top. Provided verbal, visual and written cues for pacing, proper technique and facilitating movement. Patient performed 1 set (s) of 10 reps this date. Instructed patient/caregiver for HEP to be performed 1-2 sets(s) of 10 reps, twice a day. HEP program reviewed. [facility] Visit Details Visit Type -DISTRICT RECRUITER ROUTINE Discipline -Physical Therapy Problems Problem Description Start Date Status Goals Interve ntions Physician Specific Parameters Disciplines: Skilled Services 07/26/2022 Active 1 goal linked to scheduled/document ed intervention 1 goal intervention scheduled/document ed in this visit Pain Disciplines: Skilled Services 07/26/2022 Active 1 goal linked to scheduled/document ed intervention 1 goal intervention scheduled/document ed in this visit PT Impaired muscle performance and/or ROM Disciplines: PT 07/28/2022 Active 1 goal linked to scheduled/document ed intervention 1 goal intervention scheduled/document ed in this visit PT Impaired gait Disciplines: PT 07/28/2022 Active 1 goal linked to scheduled/document ed intervention 1 goal intervention scheduled/document ed in this visit Goals Goal Associated Problem Outcome Goal Met? Visit Notes Patient to maintain parameters within physician-specified ranges throughout certification period Physician Specific Parameters No Manage Pain Description: Patient/caregiver will verbalize knowledge and understanding of appropriate techniques to control pain, including pain medication and non-pharmacological techniques. Patient will verbalize or demonstrate an acceptable level of pain as evidenced by a pain score of 0/10 and improvement in ability to perform activities of daily living to be achieved by 09/23/22. Pain No Improved Muscle Performance and/or ROM Description: LTG: Patient will demonstrate improved muscle performance to meet functional goals as evidenced by ability to tolerate 10 min of standing activity, to be achieved by 08/26/22. . STG: Patient and/or caregiver will verbalize/demonstrate independence with home exercise program, to improve functional mobility, to be achieved by 08/12/22. PT Impaired muscle performance and/or ROM No Improved Gait Description: STG: Patient will demonstrate improved gait ability as evidenced by ambulation 200 feet with front wheeled walker independently with AD, , to be achieved by 08/12/22. LTG: Patient will demonstrate improved gait ability as evidenced by ambulation 200 feet with LRD with supervision, to return to safe household and community ambulation, , to be achieved by 08/26/22. . PT Impaired gait No Interventions Intervention Associated Problem/Goal Status Variance Visit Notes SPO2 Description: Notify Dr. Astorga if pulse ox is <92% at rest. Problem:Physician Specific Parameters Goal:Patient to maintain parameters within physician-specified ranges throughout certification period Completed Instruct on pain and instruct on strategies to control pain Problem:Pain Goal:Manage Pain Completed patient instructed on techniques to control pain including Non-Pharmacological measures; mobility/therapeutic exercise and distraction. Physical Therapy Therapeutic Exercises Problem:PT Impaired muscle performance and/or ROM Goal:Improved Muscle Performance and/or ROM Completed patient instructed on strengthening exercises including: Bilateral LE standing ex's at countertop: x 10 / 2 sets ( Marching, hip abd, hip ext, HS curls, heel to toe, and minin squats ). Vc's to slow down and to limit substitutions.. patient instructed to perform home exercise program twice a day which included: Above exercises. Physical Therapy Gait Training Problem:PT Impaired gait Goal:Improved Gait Completed Gait training and instruction to patient on safe ambulation with front wheeled walker for 100 feet x 2 with supervision, with verbal cues to facilitate improved heel to toe Gt pattern. Gt is slightly ataxic. documented in this encounter [facility] Plan of care note* Visit Details Visit Type -SN ROUTINE Discipline -Shelter Problems Problem Description Start Date Status Goals Interve ntions Medication Education Disciplines: Skilled Services 07/26/2022 Active 1 goal linked to scheduled/document ed intervention 1 goal intervention scheduled/documente d in this visit Physician Specific Parameters Disciplines: Skilled Services 07/26/2022 Active 1 goal linked to scheduled/document ed intervention 1 goal intervention scheduled/documente d in this visit Nutrition/Hydra tion Disciplines: Skilled Services 07/26/2022 Active 1 goal linked to scheduled/document ed intervention 1 goal intervention scheduled/documente d in this visit SN Neurological Disciplines: SN 07/26/2022 Active 1 goal linked to scheduled/document ed intervention 1 goal intervention scheduled/documente d in this visit SN Learning Assessment Disciplines: SN 07/26/2022 Active 1 goal linked to scheduled/document ed intervention 1 goal intervention scheduled/documente d in this visit Goals Goal Associated Problem Outcome Goal Met? Visit Notes Patient/caregiver will demonstrate ability to obtain, store, identify and administer ordered medications, keep accurate medication list in home, and adhere to medication schedule Description: Patient/caregiver will demonstrate ability to obtain, store, identify and administer ordered medications, keep accurate medication list in home, and adhere to medication schedule by 09/23/22. Medication Education No Patient to maintain parameters within physician-specified ranges throughout certification period Physician Specific Parameters No Manage Nutrition/Hydration Description: Patient/caregiver will verbalize/demonstrate knowledge of prescribed diet and/or healthy nutrition to be achieved by 09/23/22. Nutrition/Hydration No Patient demonstrates baseline or optimal neurological functioning prior to discharge Description: Patient and/or caregiver will verbalize and/or demonstrate understanding of signs and symptoms of neurological disease process and management of alf effects and risk factors by 08/09/22,. SN Neurological No Demonstrate understanding of education Description: Patient and/or caregiver will verbalize understanding of educational instruction provided throughout certification period. SN Learning Assessment No Interventions Intervention Associated Problem/Goal Status Variance Visit Notes Medication Education Description: Evaluate/instruct patient/caregiver on obtaining, storing, identifying and administering ordered medications as well as keeping accurate medication list in the home and adhereing to medication schedule Problem:Medication Education Goal:Patient/caregive r will demonstrate ability to obtain, store, identify and administer ordered medications, keep accurate medication list in home, and adhere to medication schedule Completed Patient instructed on adhering to medication schedule. SPO2 Description: Notify Dr. Astorga if pulse ox is <92% at rest. Problem:Physician Specific Parameters Goal:Patient to maintain parameters within physician-specified ranges throughout certification period Completed Define patient s appetite/hydration status and implement strategies to improve compliance with prescribed diet and/or healthy nutrition. Problem:Nutrition/Hyd ration Goal:Manage Nutrition/Hydration Completed instructed patient on implementing strategies to comply with healthy nutrition and adequate hydration Assess patient neurological and behavioral status and instruct patient and/or caregiver on neurological disease process, ferry terminal supervisor effects, and effective management strategies Description: Patient has diagnosis of CVA. Problem:SN Neurological Goal:Patient demonstrates baseline or optimal neurological functioning prior to discharge Completed patient instructed on disease process and monitoring and reporting symptoms of elevated blood pressure, headaches, swallowing difficulty, speech changes, mental status changes and increased lethargy. Instruct and educate on knowledge deficits Problem:SN Learning Assessment Goal:Demonstrate understanding of education Completed patient verbalize and/or demonstrate understanding of nursing education completed today. Education methods include: verbal cues. Further education required to improve knowledge and compliance with fall prevention/home safety strategies, medication management, neurological disease management and nutrition. documented in this encounter [facility] home Plan of care note* Visit Details Visit Type -SN DISC DC W VIS IT Discipline -Shelter Problems Problem Description Start Date Status Goals Interve ntions Medication Education Disciplines: Skilled Services 07/26/2022 Active 1 goal linked to scheduled/document ed intervention 1 goal intervention scheduled/document ed in this visit Mental Health Disciplines: Skilled Services 07/26/2022 Resolved on 08/09/2022 1 goal linked to scheduled/document ed intervention 1 goal intervention scheduled/document ed in this visit Declined Referral Disciplines: Skilled Services 07/26/2022 Resolved on 08/09/2022 1 goal linked to scheduled/document ed intervention Physician Specific Parameters Disciplines: Skilled Services 07/26/2022 Active 1 goal linked to scheduled/document ed intervention 1 goal intervention scheduled/document ed in this visit Pain Disciplines: Skilled Services 07/26/2022 Resolved on 08/09/2022 1 goal linked to scheduled/document ed intervention Nutrition/Hydr ation Disciplines: Skilled Services 07/26/2022 Active 1 goal linked to scheduled/document ed intervention 1 goal intervention scheduled/document ed in this visit Discharge Disciplines: Skilled Services 07/26/2022 Active 1 goal linked to scheduled/document ed intervention 1 goal intervention scheduled/document ed in this visit Advance Directives Disciplines: Skilled Services 07/26/2022 Resolved on 08/09/2022 1 goal linked to scheduled/document ed intervention SN Neurological Disciplines: SN 07/26/2022 Resolved on 08/09/2022 1 goal linked to scheduled/document ed intervention 1 goal intervention scheduled/document ed in this visit SN Learning Assessment Disciplines: SN 07/26/2022 Resolved on 08/09/2022 1 goal linked to scheduled/document ed intervention 1 goal intervention scheduled/document ed in this visit Goals Goal Associated Problem Outcome Goal Met? Visit Notes Patient/caregiver will demonstrate ability to obtain, store, identify and administer ordered medications, keep accurate medication list in home, and adhere to medication schedule Description: Patient/caregiver will demonstrate ability to obtain, store, identify and administer ordered medications, keep accurate medication list in home, and adhere to medication schedule by 09/23/22. Medication Education In Progress No Improved management of mental health condition(s) Description: Patient/caregiver will teach back mental health symptom identification and management techniques by 08/09/22. Mental Health Completed Yes Patient has declined referred services Declined Referral Completed Yes Patient to maintain parameters within physician-specified ranges throughout certification period Physician Specific Parameters In Progress No Manage Pain Description: Patient/caregiver will verbalize knowledge and understanding of appropriate techniques to control pain, including pain medication and non-pharmacological techniques. Patient will verbalize or demonstrate an acceptable level of pain as evidenced by a pain score of 0/10 and improvement in ability to perform activities of daily living to be achieved by 09/23/22. Pain Completed Yes Manage Nutrition/Hydration Description: Patient/caregiver will verbalize/demonstrate knowledge of prescribed diet and/or healthy nutrition to be achieved by 09/23/22. Nutrition/Hydration In Progress No Manage discharge planning Description: Patient/caregiver will verbalize understanding of ongoing discharge plan provided related to disease management, arrangements for outpatient and/or community services, obtaining medications, supplies, and DME, as needed throughout certification period. Discharge In Progress No Patient/caregiver will make healthcare providers aware of and any changes to Advance Directives throughout certification period Advance Directives Completed Yes Patient demonstrates baseline or optimal neurological functioning prior to discharge Description: Patient and/or caregiver will verbalize and/or demonstrate understanding of signs and symptoms of neurological disease process and management of alf effects and risk factors by 08/09/22,. SN Neurological Completed Yes Demonstrate understanding of education Description: Patient and/or caregiver will verbalize understanding of educational instruction provided throughout certification period. SN Learning Assessment Completed Yes Interventions Intervention Associated Problem/Goal Status Variance Visit Notes Medication Education Description: Evaluate/instruct patient/caregiver on obtaining, storing, identifying and administering ordered medications as well as keeping accurate medication list in the home and adhereing to medication schedule Problem:Medication Education Goal:Patient/caregive r will demonstrate ability to obtain, store, identify and administer ordered medications, keep accurate medication list in home, and adhere to medication schedule Completed Patient instructed on adhering to medication schedule. Patient/caregiver will teach back mental health symptom identification and management strategies Problem:Mental Health Goal:Improved management of mental health condition(s) Completed Patient instructed on the following: seeking support from family/friends. SPO2 Description: Notify Dr. Astorga if pulse ox is <92% at rest. Problem:Physician Specific Parameters Goal:Patient to maintain parameters within physician-specified ranges throughout certification period Completed Define patient s appetite/hydration status and implement strategies to improve compliance with prescribed diet and/or healthy nutrition. Problem:Nutrition/Hyd ration Goal:Manage Nutrition/Hydration Completed reinforced patient on implementing strategies to comply with healthy nutrition and adequate hydration Instruct on ongoing discharge plan Problem:Discharge Goal:Manage discharge planning Completed Ongoing Discharge plan: Discharge plan discussed with patient including frequency and duration for home SN and plan for transition to: outpatient therapy. Assess patient neurological and behavioral status and instruct patient and/or caregiver on neurological disease process, alf effects, and effective management strategies Description: Patient has diagnosis of CVA. Problem:SN Neurological Goal:Patient demonstrates baseline or optimal neurological functioning prior to discharge Completed patient instructed on disease process and when to seek medical attention and when to call 911. Instruct and educate on knowledge deficits Problem:SN Learning Assessment Goal:Demonstrate understanding of education Completed patient verbalize and/or demonstrate understanding of nursing education completed today. Education methods include: verbal cues. Further education required to improve knowledge and compliance with fall prevention/home safety strategies, medication management, neurological disease management and nutrition. [facility] Visit Details Visit Type -DISTRICT RECRUITER ROUTINE Discipline -Physical Therapy Problems Problem Description Start Date Status Goals Interve ntions Physician Specific Parameters Disciplines: Skilled Services 07/26/2022 Active 1 goal linked to scheduled/document ed intervention 1 goal intervention scheduled/document ed in this visit Pain Disciplines: Skilled Services 07/26/2022 Resolved on 08/09/2022 1 goal linked to scheduled/document ed intervention 1 goal intervention scheduled/document ed in this visit PT Impaired gait Disciplines: PT 07/28/2022 Active 2 goals linked to scheduled/document ed interventions 2 goal interventions scheduled/document ed in this visit PT Impaired balance Disciplines: PT 07/28/2022 Active 1 goal linked to scheduled/document ed intervention 1 goal intervention scheduled/document ed in this visit Goals Goal Associated Problem Outcome Goal Met? Visit Notes Patient to maintain parameters within physician-specified ranges throughout certification period Physician Specific Parameters No Manage Pain Description: Patient/caregiver will verbalize knowledge and understanding of appropriate techniques to control pain, including pain medication and non-pharmacological techniques. Patient will verbalize or demonstrate an acceptable level of pain as evidenced by a pain score of 0/10 and improvement in ability to perform activities of daily living to be achieved by 09/23/22. Pain No Improved Stair Climbing Description: LTG: Patient will demonstrate improved stair negotiation as evidenced by ascend/descend 2 steps with railing independently, to safely access community and exit home, to be achieved by 08/26/22. . PT Impaired gait No Improved Gait Description: STG: Patient will demonstrate improved gait ability as evidenced by ambulation 200 feet with front wheeled walker independently with AD, , to be achieved by 08/12/22. LTG: Patient will demonstrate improved gait ability as evidenced by ambulation 200 feet with LRD with supervision, to return to safe household and community ambulation, , to be achieved by 08/26/22. . PT Impaired gait No Improved Balance Description: LTG: Patient will demonstrate improved standing balance to meet functional goals as evidenced by TUG score of <25 to be achieved by 08/26/22. PT Impaired balance No Interventions Intervention Associated Problem/Goal Status Variance Visit Notes SPO2 Description: Notify Dr. Astorga if pulse ox is <92% at rest. Problem:Physician Specific Parameters Goal:Patient to maintain parameters within physician-specified ranges throughout certification period Completed Instruct on pain and instruct on strategies to control pain Problem:Pain Goal:Manage Pain Completed patient instructed on techniques to control pain including Non-Pharmacological measures; mobility/therapeutic exercise and distraction. Physical Therapy Stair Training Problem:PT Impaired gait Goal:Improved Stair Climbing Completed Stair training and instruction to patient on safe stair climbing, ascend/descend 3 steps, with railing and with contact guard assist and verbal cues for sequencing. Physical Therapy Gait Training Problem:PT Impaired gait Goal:Improved Gait Completed Gait training and instruction to patient on safe ambulation with front wheeled walker with supervision. Pt also amb with quad cane up to 200 feet x 2 with CGA with verbal and visual cues to facilitate upright posture. Physical Therapy Balance Training Problem:PT Impaired balance Goal:Improved Balance Completed Developed, implemented, and instructed patient on standing balance exercises including: Pt amb with out AD up to 50 ft with CGA ( Increased postural swaying observed when amb with out AD. Backward and lateral walking with quad cane with pt requiring CGA/ vc's for upright posture and to slow down. Toe tapping to 8 step ht with quad cane and CGA/ vc's to increase her LORNA. No LOB observed during today's balance ex's documented in this encounter [facility]'s home Plan of care note* Visit Details Visit Type -RAND ROUTINE Discipline -Occupational Therapy Problems Problem Description Start Date Status Goals Interve ntions Medication Education Disciplines: Skilled Services 07/26/2022 Active 1 goal linked to scheduled/document ed intervention 1 goal intervention scheduled/documente d in this visit Physician Specific Parameters Disciplines: Skilled Services 07/26/2022 Active 1 goal linked to scheduled/document ed intervention 1 goal intervention scheduled/documente d in this visit Pain Disciplines: Skilled Services 07/26/2022 Active 1 goal linked to scheduled/document ed intervention 1 goal intervention scheduled/documente d in this visit Discharge Disciplines: Skilled Services 07/26/2022 Active 1 goal linked to scheduled/document ed intervention 1 goal intervention scheduled/documente d in this visit OT Learning Assessment Disciplines: OT 07/27/2022 Active 1 goal linked to scheduled/document ed intervention 1 goal intervention scheduled/documente d in this visit OT Upper Body Strength and/or ROM Disciplines: OT 07/27/2022 Active 1 goal linked to scheduled/document ed intervention 1 goal intervention scheduled/documente d in this visit OT Functional Transfers Disciplines: OT 07/27/2022 Active 1 goal linked to scheduled/document ed intervention 1 goal intervention scheduled/documente d in this visit Goals Goal Associated Problem Outcome Goal Met? Visit Notes Patient/caregiver will demonstrate ability to obtain, store, identify and administer ordered medications, keep accurate medication list in home, and adhere to medication schedule Description: Patient/caregiver will demonstrate ability to obtain, store, identify and administer ordered medications, keep accurate medication list in home, and adhere to medication schedule by 09/23/22. Medication Education No Patient to maintain parameters within physician-specified ranges throughout certification period Physician Specific Parameters No Manage Pain Description: Patient/caregiver will verbalize knowledge and understanding of appropriate techniques to control pain, including pain medication and non-pharmacological techniques. Patient will verbalize or demonstrate an acceptable level of pain as evidenced by a pain score of 0/10 and improvement in ability to perform activities of daily living to be achieved by 09/23/22. Pain No Manage discharge planning Description: Patient/caregiver will verbalize understanding of ongoing discharge plan provided related to disease management, arrangements for outpatient and/or community services, obtaining medications, supplies, and DME, as needed throughout certification period. Discharge No Demonstrate understanding of education Description: Patient and/or caregiver will understand educational instruction to be achieved by 09/16/21. OT Learning Assessment No Improved Strength and/or ROM Description: patient will verbalize/demonstrate independence with home exercise program, to improve functional performance, to be achieved by 08/19/22. Patient will demonstrate improved left shoulder and elbow active range of motion to shoulder to 90 degrees and elbow flex to 110 degrees full gross grasp and thumb opposition to index and middle finger, to be achieved by 09/16/21. OT Upper Body Strength and/or ROM No Improved Functional Transfers Description: patient will demonstrate safe transfers to/from toilet/shower with independent assistance and no verbal cues with use of DME to be achieved by 08/19/22. OT Functional Transfers No Interventions Intervention Associated Problem/Goal Status Variance Visit Notes Medication Education Description: Evaluate/instruct patient/caregiver on obtaining, storing, identifying and administering ordered medications as well as keeping accurate medication list in the home and adhereing to medication schedule Problem:Medication Education Goal:Patient/caregiver will demonstrate ability to obtain, store, identify and administer ordered medications, keep accurate medication list in home, and adhere to medication schedule Completed Patient instructed on importance of keeping accurate medication list in home and adhering to medication schedule. SPO2 Description: Notify Dr. Astorga if pulse ox is <92% at rest. Problem:Physician Specific Parameters Goal:Patient to maintain parameters within physician-specified ranges throughout certification period Completed Instruct on pain and instruct on strategies to control pain Problem:Pain Goal:Manage Pain Completed patient instructed on techniques to control pain including Non-Pharmacological measures; mobility/therapeutic exercise. Instruct on ongoing discharge plan Problem:Discharge Goal:Manage discharge planning Completed Ongoing Discharge plan: Discharge plan discussed with patient including frequency and duration for home OT and plan for transition to: live at home with community assistance. Instruct and educate on knowledge deficits Problem:OT Learning Assessment Goal:Demonstrate understanding of education Completed Education methods include: verbal cues. Patient/Caregiver require further education to improve knowledge and compliance with fall prevention strategies. Therapeutic Exercises Problem:OT Upper Body Strength and/or ROM Goal:Improved Strength and/or ROM Completed Instructed patient/caregiver on therapeutic exercise including: upper body exercises: shoulder flexion, shoulder internal/external rotation and bicep curls, ROM exercisrs and education for splint wearing. Provided verbal cues for pacing and proper technique. Patient performed 1 set (s) of 10 reps this date. Instructed patient/caregiver for HEP to be performed 1 sets(s) of 10 reps, daily. HEP program reviewed. Transfer Training Problem:OT Functional Transfers Goal:Improved Functional Transfers Completed Instruct patient on safe transfers and proper techniques including min verbal cue for reaching back and pushing when getting up from toilet. [facility] Visit Details Visit Type -RAND ROUTINE Discipline -Occupational Therapy Problems Problem Description Start Date Status Goals Interve ntions Medication Education Disciplines: Skilled Services 07/26/2022 Active 1 goal linked to scheduled/document ed intervention 1 goal intervention scheduled/documente d in this visit Physician Specific Parameters Disciplines: Skilled Services 07/26/2022 Active 1 goal linked to scheduled/document ed intervention 1 goal intervention scheduled/documente d in this visit Discharge Disciplines: Skilled Services 07/26/2022 Active 1 goal linked to scheduled/document ed intervention 1 goal intervention scheduled/documente d in this visit OT Learning Assessment Disciplines: OT 07/27/2022 Active 1 goal linked to scheduled/document ed intervention 1 goal intervention scheduled/documente d in this visit OT Upper Body Strength and/or ROM Disciplines: OT 07/27/2022 Active 1 goal linked to scheduled/document ed intervention 1 goal intervention scheduled/documente d in this visit Goals Goal Associated Problem Outcome Goal Met? Visit Notes Patient/caregiver will demonstrate ability to obtain, store, identify and administer ordered medications, keep accurate medication list in home, and adhere to medication schedule Description: Patient/caregiver will demonstrate ability to obtain, store, identify and administer ordered medications, keep accurate medication list in home, and adhere to medication schedule by 09/23/22. Medication Education No Patient to maintain parameters within physician-specified ranges throughout certification period Physician Specific Parameters No Manage discharge planning Description: Patient/caregiver will verbalize understanding of ongoing discharge plan provided related to disease management, arrangements for outpatient and/or community services, obtaining medications, supplies, and DME, as needed throughout certification period. Discharge No Demonstrate understanding of education Description: Patient and/or caregiver will understand educational instruction to be achieved by 09/16/21. OT Learning Assessment No Improved Strength and/or ROM Description: patient will verbalize/demonstrate independence with home exercise program, to improve functional performance, to be achieved by 08/19/22. Patient will demonstrate improved left shoulder and elbow active range of motion to shoulder to 90 degrees and elbow flex to 110 degrees full gross grasp and thumb opposition to index and middle finger, to be achieved by 09/16/21. OT Upper Body Strength and/or ROM No Interventions Intervention Associated Problem/Goal Status Variance Visit Notes Medication Education Description: Evaluate/instruct patient/caregiver on obtaining, storing, identifying and administering ordered medications as well as keeping accurate medication list in the home and adhereing to medication schedule Problem:Medication Education Goal:Patient/caregiver will demonstrate ability to obtain, store, identify and administer ordered medications, keep accurate medication list in home, and adhere to medication schedule Completed Patient instructed on importance of keeping accurate medication list in home and adhering to medication schedule. SPO2 Description: Notify Dr. Astorga if pulse ox is <92% at rest. Problem:Physician Specific Parameters Goal:Patient to maintain parameters within physician-specified ranges throughout certification period Completed Instruct on ongoing discharge plan Problem:Discharge Goal:Manage discharge planning Completed Ongoing Discharge plan: Discharge plan discussed with patient including frequency and duration for home OT and plan for transition to: live at home with community assistance. Instruct and educate on knowledge deficits Problem:OT Learning Assessment Goal:Demonstrate understanding of education Completed Education methods include: verbal cues. Patient/Caregiver require further education to improve knowledge and compliance with fall prevention strategies. Therapeutic Exercises Problem:OT Upper Body Strength and/or ROM Goal:Improved Strength and/or ROM Completed Instructed patient/caregiver on therapeutic exercise including: upper body exercises: towel slides, hand open closed on towel, red putty exercises. Provided verbal cues for pacing and proper technique. Patient performed 1 set (s) of 10 reps this date. Education for continued splint wearing. Instructed patient/caregiver for HEP to be performed 1 sets(s) of 10 reps, daily. HEP program reviewed. [facility] Visit Details Visit Type -RAND ROUTINE Discipline -Occupational Therapy Problems Problem Description Start Date Status Goals Interve ntions Medication Education Disciplines: Skilled Services 07/26/2022 Active 1 goal linked to scheduled/document ed intervention 1 goal intervention scheduled/documente d in this visit Physician Specific Parameters Disciplines: Skilled Services 07/26/2022 Active 1 goal linked to scheduled/document ed intervention 1 goal intervention scheduled/documente d in this visit Discharge Disciplines: Skilled Services 07/26/2022 Active 1 goal linked to scheduled/document ed intervention 1 goal intervention scheduled/documente d in this visit OT Learning Assessment Disciplines: OT 07/27/2022 Active 1 goal linked to scheduled/document ed intervention 1 goal intervention scheduled/documente d in this visit OT ADLs/IADLs Disciplines: OT 07/27/2022 Active 1 goal linked to scheduled/document ed intervention 1 goal intervention scheduled/documente d in this visit OT Upper Body Strength and/or ROM Disciplines: OT 07/27/2022 Active 1 goal linked to scheduled/document ed intervention 1 goal intervention scheduled/documente d in this visit OT Balance Disciplines: OT 07/27/2022 Active 1 goal linked to scheduled/document ed intervention 1 goal intervention scheduled/documente d in this visit Goals Goal Associated Problem Outcome Goal Met? Visit Notes Patient/caregiver will demonstrate ability to obtain, store, identify and administer ordered medications, keep accurate medication list in home, and adhere to medication schedule Description: Patient/caregiver will demonstrate ability to obtain, store, identify and administer ordered medications, keep accurate medication list in home, and adhere to medication schedule by 09/23/22. Medication Education No Patient to maintain parameters within physician-specified ranges throughout certification period Physician Specific Parameters No Manage discharge planning Description: Patient/caregiver will verbalize understanding of ongoing discharge plan provided related to disease management, arrangements for outpatient and/or community services, obtaining medications, supplies, and DME, as needed throughout certification period. Discharge No Demonstrate understanding of education Description: Patient and/or caregiver will understand educational instruction to be achieved by 09/16/21. OT Learning Assessment No Improved ADLs/IADLs performance Description: patient will verbalize understanding of instructions and demonstrate improved performance of lower body dressing to independence as evidenced by improved Cici ADL Index score to at least increase by 5 to be achieved by 08/19/22. patient will verbalize understanding of instructions and demonstrate improved performance of meal prep to independence as evidenced by improved indep to complete simple meal and safe food/drink retrieval and transport with no lob to be achieved by 09/16/21. OT ADLs/IADLs No Improved Strength and/or ROM Description: patient will verbalize/demonstrate independence with home exercise program, to improve functional performance, to be achieved by 08/19/22. Patient will demonstrate improved left shoulder and elbow active range of motion to shoulder to 90 degrees and elbow flex to 110 degrees full gross grasp and thumb opposition to index and middle finger, to be achieved by 09/16/21. OT Upper Body Strength and/or ROM No Improved Balance Description: Patient will demonstrate improved standing balance to meet functional goals as evidenced by standing during functional adl/iadl task with no loss of balance and fair+ standing with unilateral support as needed to corrrect or maintain balance to be achieved by 09/16/21. OT Balance No Interventions Intervention Associated Problem/Goal Status Variance Visit Notes Medication Education Description: Evaluate/instruct patient/caregiver on obtaining, storing, identifying and administering ordered medications as well as keeping accurate medication list in the home and adhereing to medication schedule Problem:Medication Education Goal:Patient/caregiver will demonstrate ability to obtain, store, identify and administer ordered medications, keep accurate medication list in home, and adhere to medication schedule Completed Patient instructed on importance of keeping accurate medication list in home and adhering to medication schedule. SPO2 Description: Notify Dr. Astorga if pulse ox is <92% at rest. Problem:Physician Specific Parameters Goal:Patient to maintain parameters within physician-specified ranges throughout certification period Completed Instruct on ongoing discharge plan Problem:Discharge Goal:Manage discharge planning Completed Ongoing Discharge plan: Discharge plan discussed with patient including frequency and duration for home OT and plan for transition to: live at home with community assistance. Instruct and educate on knowledge deficits Problem:OT Learning Assessment Goal:Demonstrate understanding of education Completed Education methods include: verbal cues. Patient/Caregiver require further education to improve knowledge and compliance with fall prevention strategies. ADL/IADLs Training Problem:OT ADLs/IADLs Goal:Improved ADLs/IADLs performance Completed Instruct patient on compensatory strategies and no adaptive equipment use to facilite improved performance of lower body dressing with Supervision. Pt has declined bathing as she has her grandaughter help her and this is going well. Pt given walker safety in kitchen with walker, taking pot down counter top to stove standing aside when opening doors or drawers and not to stand infront of them. One hand on counter top and one hand reaching for items with Supervision. Therapeutic Exercises Problem:OT Upper Body Strength and/or ROM Goal:Improved Strength and/or ROM Completed Instructed patient/caregiver on therapeutic exercise including: upper body exercises: Towel slides up/down, side to side and circles to the left/right, finger exercises with pink foam block, finger to thumb, scrunch towel in hand and push out fings pt is still unable to complete, lift one finger at a time unable to complete, .Provided verbal cues for pacing and proper technique. Patient performed 1 set (s) of 10 reps this date. Instructed patient/caregiver for HEP to be performed 1 sets(s) of 10 reps, daily. HEP program developed and reviewed. Balance Training Problem:OT Balance Goal:Improved Balance Completed Developed, implemented, and instructed patient on standing balance while in kitchen with walker infront of her, Pt is able to static stand at counter top and complete dynamic reaching for 4 minutes with S/SBA. [facility] Visit Details Visit Type -MRI SPECIALIST DISC DC W SIT Discipline -Speech Language Pathology Problems Problem Description Start Date Status Goals Interve ntions Medication Education Disciplines: Skilled Services 07/26/2022 Active 1 goal linked to scheduled/document ed intervention 1 goal intervention scheduled/document ed in this visit Physician Specific Parameters Disciplines: Skilled Services 07/26/2022 Active 1 goal linked to scheduled/document ed intervention 1 goal intervention scheduled/document ed in this visit Nutrition/Hydr ation Disciplines: Skilled Services 07/26/2022 Active 1 goal linked to scheduled/document ed intervention 1 goal intervention scheduled/document ed in this visit Discharge Disciplines: Skilled Services 07/26/2022 Active 1 goal linked to scheduled/document ed intervention 1 goal intervention scheduled/document ed in this visit MRI SPECIALIST Learning Assessment Disciplines: MRI SPECIALIST 08/01/2022 Resolved on 08/16/2022 1 goal linked to scheduled/document ed intervention 1 goal intervention scheduled/document ed in this visit MRI SPECIALIST Speech Production/Int elligibility Disciplines: MRI SPECIALIST 08/01/2022 Resolved on 08/16/2022 1 goal linked to scheduled/document ed intervention 1 goal intervention scheduled/document ed in this visit MRI SPECIALIST Speech Improve Oral Motor Skills STG Disciplines: MRI SPECIALIST 08/01/2022 Resolved on 08/16/2022 1 goal linked to scheduled/document ed intervention 1 goal intervention scheduled/document ed in this visit Goals Goal Associated Problem Outcome Goal Met? Visit Notes Patient/caregiver will demonstrate ability to obtain, store, identify and administer ordered medications, keep accurate medication list in home, and adhere to medication schedule Description: Patient/caregiver will demonstrate ability to obtain, store, identify and administer ordered medications, keep accurate medication list in home, and adhere to medication schedule by 09/23/22. Medication Education No Patient to maintain parameters within physician-specified ranges throughout certification period Physician Specific Parameters No Manage Nutrition/Hydration Description: Patient/caregiver will verbalize/demonstrate knowledge of prescribed diet and/or healthy nutrition to be achieved by 09/23/22. Nutrition/Hydration No Manage discharge planning Description: Patient/caregiver will verbalize understanding of ongoing discharge plan provided related to disease management, arrangements for outpatient and/or community services, obtaining medications, supplies, and DME, as needed throughout certification period. Discharge No Patient/Caregiver Demonstrates understanding of education Description: patient will understand educational instruction, to be achieved by 08/26/22. MRI SPECIALIST Learning Assessment Completed Yes Goal met Improve Speech Intelligibility Description: Patient will improve speech intelligibility in conversation with/in 100% accuracy with no cues, to facilitate communication with others. To be achieved by 08/19/22. MRI SPECIALIST Speech Production/Intelligibil ity Completed Yes Goal met Improve Oral Motor Skills STG Description: Patient will demonstrate improved oral range of motion and coordination for labial, buccal, facial and jaw muscles with no cues with/in 95% accuracy. To be achieved by 08/26/22. MRI SPECIALIST Speech Improve Oral Motor Skills STG Completed Yes Goal met Interventions Intervention Associated Problem/Goal Status Variance Visit Notes Medication Education Description: Evaluate/instruct patient/caregiver on obtaining, storing, identifying and administering ordered medications as well as keeping accurate medication list in the home and adhereing to medication schedule Problem:Medication Education Goal:Patient/caregive r will demonstrate ability to obtain, store, identify and administer ordered medications, keep accurate medication list in home, and adhere to medication schedule Completed Patient instructed on importance of keeping accurate medication list in home and adhering to medication schedule. SPO2 Description: Notify Dr. Astorga if pulse ox is <92% at rest. Problem:Physician Specific Parameters Goal:Patient to maintain parameters within physician-specified ranges throughout certification period Completed Define patient s appetite/hydration status and implement strategies to improve compliance with prescribed diet and/or healthy nutrition. Problem:Nutrition/Hyd ration Goal:Manage Nutrition/Hydration Completed reinforced patient on implementing strategies to comply with healthy nutrition and adequate hydration Instruct on final discharge plan and deliver discharge instructions Problem:Discharge Goal:Manage discharge planning Completed Delivered Discharge plan: Discharge plan discussed with patient for plan for transition to: live independently at home without ongoing services Assessment of patient/caregiver knowledge deficit and educational instruction Problem:MRI SPECIALIST Learning Assessment Goal:Patient/Caregive r Demonstrates understanding of education Completed Education methods include: verbal cues and teach back. Further education required to improve knowledge and compliance with speech intelligibility strategies and home exercise program. Articulation Instruction Intelligibility Training Motor Planning Precision Training Speech Intelligiblity Exercise Problem:MRI SPECIALIST Speech Production/Intelligib ility Goal:Improve Speech Intelligibility Completed MRI SPECIALIST instructed patient to overarticulation in sentences and conversation with no cues with/in 100% trials. Oral Motor Exercise Problem:MRI SPECIALIST Speech Improve Oral Motor Skills STG Goal:Improve Oral Motor Skills STG Completed MRI SPECIALIST instructed patient to complete the following oral range of motion exercises: labial protrusion and retraction in alternation, patient completed with/in 95% accuracy. Patient continues to demonstrate some facial weakness on the left side, but does not effect intelligibility. Patient to continue to complete oral motor exercises. [facility] Visit Details Visit Type -OT REASSESSMENT VISIT Discipline -Occupational Therapy Problems Problem Description Start Date Status Goals Interve ntions Physician Specific Parameters Disciplines: Skilled Services 07/26/2022 Active 1 goal linked to scheduled/document ed intervention 1 goal intervention scheduled/documente d in this visit Discharge Disciplines: Skilled Services 07/26/2022 Active 1 goal linked to scheduled/document ed intervention 1 goal intervention scheduled/documente d in this visit OT Learning Assessment Disciplines: OT 07/27/2022 Active 1 goal linked to scheduled/document ed intervention 1 goal intervention scheduled/documente d in this visit OT Upper Body Strength and/or ROM Disciplines: OT 07/27/2022 Active 1 goal linked to scheduled/document ed intervention 1 goal intervention scheduled/documente d in this visit Goals Goal Associated Problem Outcome Goal Met? Visit Notes Patient to maintain parameters within physician-specified ranges throughout certification period Physician Specific Parameters No Manage discharge planning Description: Patient/caregiver will verbalize understanding of ongoing discharge plan provided related to disease management, arrangements for outpatient and/or community services, obtaining medications, supplies, and DME, as needed throughout certification period. Discharge No Demonstrate understanding of education Description: Patient and/or caregiver will understand educational instruction to be achieved by 09/16/21. OT Learning Assessment No Improved Strength and/or ROM Description: patient will verbalize/demonstrate independence with home exercise program, to improve functional performance, to be achieved by 08/19/22. Patient will demonstrate improved left shoulder and elbow active range of motion to shoulder to 90 degrees and elbow flex to 110 degrees full gross grasp and thumb opposition to index and middle finger, to be achieved by 09/16/21. OT Upper Body Strength and/or ROM No Interventions Intervention Associated Problem/Goal Status Variance Visit Notes SPO2 Description: Notify Dr. Astorga if pulse ox is <92% at rest. Problem:Physician Specific Parameters Goal:Patient to maintain parameters within physician-specified ranges throughout certification period Completed Instruct on ongoing discharge plan Problem:Discharge Goal:Manage discharge planning Completed Ongoing Discharge plan: Discharge plan discussed with patient including frequency and duration for home OT and plan for transition to: live independently at home without ongoing services. Instruct and educate on knowledge deficits Problem:OT Learning Assessment Goal:Demonstrate understanding of education Completed Education methods include: verbal cues. Patient/Caregiver require further education to improve knowledge and compliance with fall prevention strategies. Therapeutic Exercises Problem:OT Upper Body Strength and/or ROM Goal:Improved Strength and/or ROM Completed Instructed patient/caregiver on therapeutic exercise including: upper body exercises: with red theraband shoulder/wrist/elbow extension 10 reps 1 set. Fine motor coordination I [facility] Visit Details Visit Type -PT REASSESSMENT Discipline -Physical Therapy Problems Problem Description Start Date Status Goals Interve ntions Medication Education Disciplines: Skilled Services 07/26/2022 Active 1 goal linked to scheduled/document ed intervention 1 goal intervention scheduled/documen derick in this visit Physician Specific Parameters Disciplines: Skilled Services 07/26/2022 Active 1 goal linked to scheduled/document ed intervention 1 goal intervention scheduled/documen derick in this visit PT Impaired muscle performance and/or ROM Disciplines: PT 07/28/2022 Active 1 goal linked to scheduled/document ed intervention 1 goal intervention scheduled/documen derick in this visit PT Impaired gait Disciplines: PT 07/28/2022 Active 2 goals linked to scheduled/document ed interventions 2 goal interventions scheduled/documen derick in this visit PT Impaired balance Disciplines: PT 07/28/2022 Active 1 goal linked to scheduled/document ed intervention 1 goal intervention scheduled/documen derick in this visit PT Neurologic Condition Disciplines: PT 07/28/2022 Active 1 goal linked to scheduled/document ed intervention 1 goal intervention scheduled/documen derick in this visit PT Learning Assessment Disciplines: PT 07/28/2022 Active 1 goal linked to scheduled/document ed intervention 1 goal intervention scheduled/documen derick in this visit PT Cardiovascular Disease Disciplines: PT 07/28/2022 Active 1 goal linked to scheduled/document ed intervention 1 goal intervention scheduled/documen derick in this visit Goals Goal Associated Problem Outcome Goal Met? Visit Notes Patient/caregiver will demonstrate ability to obtain, store, identify and administer ordered medications, keep accurate medication list in home, and adhere to medication schedule Description: Patient/caregiver will demonstrate ability to obtain, store, identify and administer ordered medications, keep accurate medication list in home, and adhere to medication schedule by 09/23/22. Medication Education No Patient to maintain parameters within physician-specified ranges throughout certification period Physician Specific Parameters No Improved Muscle Performance and/or ROM Description: LTG: Patient will demonstrate improved muscle performance to meet functional goals as evidenced by ability to tolerate 10 min of standing activity, to be achieved by 08/26/22. reassessment completed - new achieve by date of 09/05/22 . STG: Patient and/or caregiver will verbalize/demonstrate independence with home exercise program, to improve functional mobility, to be achieved by 08/12/22. reassessment completed - new achieve by date of 09/05/22 PT Impaired muscle performance and/or ROM No Improved Stair Climbing Description: LTG: Patient will demonstrate improved stair negotiation as evidenced by ascend/descend 2 steps with railing independently, to safely access community and exit home, to be achieved by 08/26/22. . PT Impaired gait No Improved Gait Description: STG: Patient will demonstrate improved gait ability as evidenced by ambulation 200 feet with front wheeled walker independently with AD, , to be achieved by 08/12/22. LTG: Patient will demonstrate improved gait ability as evidenced by ambulation 200 feet with LRD with supervision, to return to safe household and community ambulation, , to be achieved by 08/26/22. .reassessment completed - new achieve by date of 09/05/22 PT Impaired gait No Improved Balance Description: LTG: Patient will demonstrate improved standing balance to meet functional goals as evidenced by TUG score of <25 to be achieved by 08/26/22. reassessment completed - new achieve by date of 09/05/22 PT Impaired balance No Manage Neurologic Condition Description: Improve patient and/or caregiver understanding of post surgical and/or non-surgical neurologic intervention management as evidenced by patient and/or caregiver able to verbalize, demonstrate, and teach back instruction, to be achieved by 09/23/22. PT Neurologic Condition No Demonstrate understanding of education Description: Patient and/or caregiver will understand educational instruction to be achieved by 09/23/22. PT Learning Assessment No Manage Primary Cardiovascular Disease Description: Improve patient and/or caregiver understanding of primary cardiovascular disease management as evidenced by patient and/or caregiver able to verbalize, demonstrate, and teach back instruction, to be achieved by 09/23/22. PT Cardiovascular Disease No Interventions Intervention Associated Problem/Goal Status Variance Visit Notes Medication Education Description: Evaluate/instruct patient/caregiver on obtaining, storing, identifying and administering ordered medications as well as keeping accurate medication list in the home and adhereing to medication schedule Problem:Medication Education Goal:Patient/caregiver will demonstrate ability to obtain, store, identify and administer ordered medications, keep accurate medication list in home, and adhere to medication schedule Completed Patient instructed on importance of keeping accurate medication list in home and adhering to medication schedule. SPO2 Description: Notify Dr. Astorga if pulse ox is <92% at rest. Problem:Physician Specific Parameters Goal:Patient to maintain parameters within physician-specified ranges throughout certification period Completed Physical Therapy Therapeutic Exercises Problem:PT Impaired muscle performance and/or ROM Goal:Improved Muscle Performance and/or ROM Completed patient instructed on strengthening exercises including sink ex x 10 reps: hip flx/ext/abd, toe raises, mini squats, hamstring curls with verbal cues for upright posture, slow speed. patient instructed to perform home exercise program twice a day which included listed e. Physical Therapy Stair Training Problem:PT Impaired gait Goal:Improved Stair Climbing Completed Stair training and instruction to patient on safe stair climbing, ascend/descend 2 steps, with railing with supervision Physical Therapy Gait Training Problem:PT Impaired gait Goal:Improved Gait Completed Gait training and instruction to patient on safe ambulation with quad cane for 80 feet with supervision, with verbal cues for corrections of gait deviations including sequencing . Physical Therapy Balance Training Problem:PT Impaired balance Goal:Improved Balance Completed Developed, implemented, and instructed patient on standing balance exercises including amb with SBQC, side, forward, and back stepping in different sequence. Instruct on self-management of post surgical and/or non-surgical neurologic intervention Problem:PT Neurologic Condition Goal:Manage Neurologic Condition Completed patient instructed on instructed on when to call provider. Instruct and educate on knowledge deficits Problem:PT Learning Assessment Goal:Demonstrate understanding of education Completed patient verbalize and/or demonstrate understanding of physical therapy education including fall prevention strategies, home safety, functional activity and home exercise program. Education methods include: verbal cues. Further education required to improve knowledge and compliance with fall prevention strategies, functional activity and home exercise program. Instruct on signs, symptoms, and management of primary cardiovascular disease Problem:PT Cardiovascular Disease Goal:Manage Primary Cardiovascular Disease Completed Instructed patient on use of RPE and instructed on when to call provider. documented in this encounter [facility] Plan of care note* Visit Details Visit Type -RAND ROUTINE Discipline -Occupational Therapy Problems Problem Description Start Date Status Goals Interve ntions Medication Education Disciplines: Skilled Services 07/26/2022 Active 1 goal linked to scheduled/document ed intervention 1 goal intervention scheduled/documente d in this visit Physician Specific Parameters Disciplines: Skilled Services 07/26/2022 Active 1 goal linked to scheduled/document ed intervention 1 goal intervention scheduled/documente d in this visit Discharge Disciplines: Skilled Services 07/26/2022 Active 1 goal linked to scheduled/document ed intervention 1 goal intervention scheduled/documente d in this visit OT Learning Assessment Disciplines: OT 07/27/2022 Active 1 goal linked to scheduled/document ed intervention 1 goal intervention scheduled/documente d in this visit OT ADLs/IADLs Disciplines: OT 07/27/2022 Active 1 goal linked to scheduled/document ed intervention 1 goal intervention scheduled/documente d in this visit OT Upper Body Strength and/or ROM Disciplines: OT 07/27/2022 Active 1 goal linked to scheduled/document ed intervention 1 goal intervention scheduled/documente d in this visit OT Balance Disciplines: OT 07/27/2022 Active 1 goal linked to scheduled/document ed intervention 1 goal intervention scheduled/documente d in this visit Goals Goal Associated Problem Outcome Goal Met? Visit Notes Patient/caregiver will demonstrate ability to obtain, store, identify and administer ordered medications, keep accurate medication list in home, and adhere to medication schedule Description: Patient/caregiver will demonstrate ability to obtain, store, identify and administer ordered medications, keep accurate medication list in home, and adhere to medication schedule by 09/23/22. Medication Education No Patient to maintain parameters within physician-specified ranges throughout certification period Physician Specific Parameters No Manage discharge planning Description: Patient/caregiver will verbalize understanding of ongoing discharge plan provided related to disease management, arrangements for outpatient and/or community services, obtaining medications, supplies, and DME, as needed throughout certification period. Discharge No Demonstrate understanding of education Description: Patient and/or caregiver will understand educational instruction to be achieved by 09/16/21. OT Learning Assessment No Improved ADLs/IADLs performance Description: patient will verbalize understanding of instructions and demonstrate improved performance of lower body dressing to independence as evidenced by improved Cici ADL Index score to at least increase by 5 to be achieved by 08/19/22. patient will verbalize understanding of instructions and demonstrate improved performance of meal prep to independence as evidenced by improved indep to complete simple meal and safe food/drink retrieval and transport with no lob to be achieved by 09/16/21. OT ADLs/IADLs No Improved Strength and/or ROM Description: patient will verbalize/demonstrate independence with home exercise program, to improve functional performance, to be achieved by 08/19/22. Patient will demonstrate improved left shoulder and elbow active range of motion to shoulder to 90 degrees and elbow flex to 110 degrees full gross grasp and thumb opposition to index and middle finger, to be achieved by 09/16/21. OT Upper Body Strength and/or ROM No Improved Balance Description: Patient will demonstrate improved standing balance to meet functional goals as evidenced by standing during functional adl/iadl task with no loss of balance and fair+ standing with unilateral support as needed to corrrect or maintain balance to be achieved by 09/16/21. OT Balance No Interventions Intervention Associated Problem/Goal Status Variance Visit Notes Medication Education Description: Evaluate/instruct patient/caregiver on obtaining, storing, identifying and administering ordered medications as well as keeping accurate medication list in the home and adhereing to medication schedule Problem:Medication Education Goal:Patient/caregiver will demonstrate ability to obtain, store, identify and administer ordered medications, keep accurate medication list in home, and adhere to medication schedule Completed Patient instructed on importance of keeping accurate medication list in home. SPO2 Description: Notify Dr. Astorga if pulse ox is <92% at rest. Problem:Physician Specific Parameters Goal:Patient to maintain parameters within physician-specified ranges throughout certification period Completed Instruct on ongoing discharge plan Problem:Discharge Goal:Manage discharge planning Completed Ongoing Discharge plan: Discharge plan discussed with patient including frequency and duration for home OT and plan for transition to: live at home with community assistance. Instruct and educate on knowledge deficits Problem:OT Learning Assessment Goal:Demonstrate understanding of education Completed Education methods include: verbal cues. Patient/Caregiver require further education to improve knowledge and compliance with fall prevention strategies. ADL/IADLs Training Problem:OT ADLs/IADLs Goal:Improved ADLs/IADLs performance Completed Instruct patient on compensatory strategies during meal prep with education for walker safety with standing to the side and opening cupboards and drawers, using one hand for balance and one hand for reaching, and siding items down the counter top along with side stepping down the counter top. Therapeutic Exercises Problem:OT Upper Body Strength and/or ROM Goal:Improved Strength and/or ROM Completed Instructed patient/caregiver on therapeutic exercise including: upper body exercises: shoulder flexion, shoulder horizontal abduction/adduction, shoulder internal/external rotation and bicep curls. door pull back with red thera band, elbow extendsion, wrist exted, open and close hand and flatten putty. Provided verbal cues for pacing and proper technique. Patient performed 1 set (s) of 10 reps this date. Instructed patient/caregiver for HEP to be performed 1 sets(s) of 10 reps, daily. HEP program reviewed. Balance Training Problem:OT Balance Goal:Improved Balance Completed Developed, implemented, and instructed patient on standing at wheeled walker for [facility] Visit Details Visit Type -OT DISC DC W VIS IT Discipline -Occupational Therapy Problems Problem Description Start Date Status Goals Interve ntions Physician Specific Parameters Disciplines: Skilled Services 07/26/2022 Active 1 goal linked to scheduled/documen derick intervention 1 goal intervention scheduled/document ed in this visit Nutrition/Hydrat ion Disciplines: Skilled Services 07/26/2022 Active 1 goal linked to scheduled/documen derick intervention 1 goal intervention scheduled/document ed in this visit Discharge Disciplines: Skilled Services 07/26/2022 Active 1 goal linked to scheduled/documen derick intervention 1 goal intervention scheduled/document ed in this visit OT Learning Assessment Disciplines: OT 07/27/2022 Resolved on 08/28/2022 1 goal linked to scheduled/documen derick intervention 1 goal intervention scheduled/document ed in this visit OT ADLs/IADLs Disciplines: OT 07/27/2022 Resolved on 08/28/2022 1 goal linked to scheduled/documen derick intervention 1 goal intervention scheduled/document ed in this visit OT Upper Body Strength and/or ROM Disciplines: OT 07/27/2022 Resolved on 08/28/2022 1 goal linked to scheduled/documen derick intervention 1 goal intervention scheduled/document ed in this visit OT Functional Transfers Disciplines: OT 07/27/2022 Resolved on 08/28/2022 1 goal linked to scheduled/documen derick intervention 1 goal intervention scheduled/document ed in this visit OT Balance Disciplines: OT 07/27/2022 Resolved on 08/28/2022 1 goal linked to scheduled/documen derick intervention OT Neurologic Condition Disciplines: OT 07/27/2022 Resolved on 08/28/2022 1 goal linked to scheduled/documen derick intervention 1 goal intervention scheduled/document ed in this visit Goals Goal Associated Problem Outcome Goal Met? Visit Notes Patient to maintain parameters within physician-specified ranges throughout certification period Physician Specific Parameters No Manage Nutrition/Hydration Description: Patient/caregiver will verbalize/demonstrate knowledge of prescribed diet and/or healthy nutrition to be achieved by 09/23/22. Nutrition/Hydration No Manage discharge planning Description: Patient/caregiver will verbalize understanding of ongoing discharge plan provided related to disease management, arrangements for outpatient and/or community services, obtaining medications, supplies, and DME, as needed throughout certification period. Discharge No Demonstrate understanding of education Description: Patient and/or caregiver will understand educational instruction to be achieved by 09/16/21. OT Learning Assessment Completed Yes Improved ADLs/IADLs performance Description: patient will verbalize understanding of instructions and demonstrate improved performance of lower body dressing to independence as evidenced by improved Cici ADL Index score to at least increase by 5 to be achieved by 08/19/22. patient will verbalize understanding of instructions and demonstrate improved performance of meal prep to independence as evidenced by improved indep to complete simple meal and safe food/drink retrieval and transport with no lob to be achieved by 09/16/21. OT ADLs/IADLs Completed Yes Improved Strength and/or ROM Description: patient will verbalize/demonstrate independence with home exercise program, to improve functional performance, to be achieved by 08/19/22. Patient will demonstrate improved left shoulder and elbow active range of motion to shoulder to 90 degrees and elbow flex to 110 degrees full gross grasp and thumb opposition to index and middle finger, to be achieved by 09/16/21. OT Upper Body Strength and/or ROM Completed Yes Improved Functional Transfers Description: patient will demonstrate safe transfers to/from toilet/shower with independent assistance and no verbal cues with use of DME to be achieved by 08/19/22. OT Functional Transfers Completed Yes Improved Balance Description: Patient will demonstrate improved standing balance to meet functional goals as evidenced by standing during functional adl/iadl task with no loss of balance and fair+ standing with unilateral support as needed to corrrect or maintain balance to be achieved by 09/16/21. OT Balance Completed Yes Manage Neurologic Condition Description: Improve patient and/or caregiver understanding of neurologic condition and management, as evidenced by patient and/or caregiver ability to verbalize, demonstrate, teach back of instruction at a minimum of two strategies. To be achieved by 08/19/22. OT Neurologic Condition Completed Yes Interventions Intervention Associated Problem/Goal Status Variance Visit Notes SPO2 Description: Notify Dr. Astorga if pulse ox is <92% at rest. Problem:Physician Specific Parameters Goal:Patient to maintain parameters within physician-specified ranges throughout certification period Completed Define patient s appetite/hydration status and implement strategies to improve compliance with prescribed diet and/or healthy nutrition. Problem:Nutrition/Hydr ation Goal:Manage Nutrition/Hydration Completed instructed patient on implementing strategies to comply with prescribed diet and healthy nutrition Instruct on ongoing discharge plan Problem:Discharge Goal:Manage discharge planning Completed Ongoing Discharge plan: Discharge plan discussed with patient including frequency and duration for home OT and plan for transition to: live independently at home without ongoing services. Instruct and educate on knowledge deficits Problem:OT Learning Assessment Goal:Demonstrate understanding of education Completed Education methods include: verbal cues. Patient/Caregiver require further education to improve knowledge and compliance with fall prevention strategies. ADL/IADLs Training Problem:OT ADLs/IADLs Goal:Improved ADLs/IADLs performance Completed Instruct patient on compensatory strategies and no adaptive equipment use to facilite improved performance of lower body dressing with independence and verbal cues. Therapeutic Exercises Problem:OT Upper Body Strength and/or ROM Goal:Improved Strength and/or ROM Completed Instructed patient/caregiver on therapeutic exercise including: upper body exercises: shoulder flexion, shoulder horizontal abduction/adduction, shoulder internal/external rotation, triceps extension, bicep curls, forearm pronation/supination and wrist flexion/extension.Pro vided verbal cues for pacing and proper technique. Transfer Training Problem:OT Functional Transfers Goal:Improved Functional Transfers Completed Instruct patient on safe transfers and proper techniques including safe transfers Instruct on self-management of post surgical and/or non-surgical neurologic intervention Problem:OT Neurologic Condition Goal:Manage Neurologic Condition Completed Instruct patient on neurological condition of CVA including monitoring and reporting symptoms of impaired movement and instruct on neuromuscular re-education. [facility] Visit Details Visit Type -OT DISC DC W VIS IT Discipline -Occupational Therapy Problems Problem Description Start Date Status Goals Interve ntions Physician Specific Parameters Disciplines: Skilled Services 07/26/2022 Active 1 goal linked to scheduled/documen derick intervention 1 goal intervention scheduled/document ed in this visit Nutrition/Hydrat ion Disciplines: Skilled Services 07/26/2022 Active 1 goal linked to scheduled/documen derick intervention 1 goal intervention scheduled/document ed in this visit Discharge Disciplines: Skilled Services 07/26/2022 Active 1 goal linked to scheduled/documen derick intervention 1 goal intervention scheduled/document ed in this visit OT Learning Assessment Disciplines: OT 07/27/2022 Resolved on 08/28/2022 1 goal linked to scheduled/documen derick intervention 1 goal intervention scheduled/document ed in this visit OT ADLs/IADLs Disciplines: OT 07/27/2022 Resolved on 08/28/2022 1 goal linked to scheduled/documen derick intervention 1 goal intervention scheduled/document ed in this visit OT Upper Body Strength and/or ROM Disciplines: OT 07/27/2022 Resolved on 08/28/2022 1 goal linked to scheduled/documen derick intervention 1 goal intervention scheduled/document ed in this visit OT Functional Transfers Disciplines: OT 07/27/2022 Resolved on 08/28/2022 1 goal linked to scheduled/documen derick intervention 1 goal intervention scheduled/document ed in this visit OT Balance Disciplines: OT 07/27/2022 Resolved on 08/28/2022 1 goal linked to scheduled/documen derick intervention OT Neurologic Condition Disciplines: OT 07/27/2022 Resolved on 08/28/2022 1 goal linked to scheduled/documen derick intervention 1 goal intervention scheduled/document ed in this visit Goals Goal Associated Problem Outcome Goal Met? Visit Notes Patient to maintain parameters within physician-specified ranges throughout certification period Physician Specific Parameters No Manage Nutrition/Hydration Description: Patient/caregiver will verbalize/demonstrate knowledge of prescribed diet and/or healthy nutrition to be achieved by 09/23/22. Nutrition/Hydration No Manage discharge planning Description: Patient/caregiver will verbalize understanding of ongoing discharge plan provided related to disease management, arrangements for outpatient and/or community services, obtaining medications, supplies, and DME, as needed throughout certification period. Discharge No Demonstrate understanding of education Description: Patient and/or caregiver will understand educational instruction to be achieved by 09/16/21. OT Learning Assessment Completed Yes Improved ADLs/IADLs performance Description: patient will verbalize understanding of instructions and demonstrate improved performance of lower body dressing to independence as evidenced by improved Cici ADL Index score to at least increase by 5 to be achieved by 08/19/22. patient will verbalize understanding of instructions and demonstrate improved performance of meal prep to independence as evidenced by improved indep to complete simple meal and safe food/drink retrieval and transport with no lob to be achieved by 09/16/21. OT ADLs/IADLs Completed Yes Improved Strength and/or ROM Description: patient will verbalize/demonstrate independence with home exercise program, to improve functional performance, to be achieved by 08/19/22. Patient will demonstrate improved left shoulder and elbow active range of motion to shoulder to 90 degrees and elbow flex to 110 degrees full gross grasp and thumb opposition to index and middle finger, to be achieved by 09/16/21. OT Upper Body Strength and/or ROM Completed Yes Improved Functional Transfers Description: patient will demonstrate safe transfers to/from toilet/shower with independent assistance and no verbal cues with use of DME to be achieved by 08/19/22. OT Functional Transfers Completed Yes Improved Balance Description: Patient will demonstrate improved standing balance to meet functional goals as evidenced by standing during functional adl/iadl task with no loss of balance and fair+ standing with unilateral support as needed to corrrect or maintain balance to be achieved by 09/16/21. OT Balance Completed Yes Manage Neurologic Condition Description: Improve patient and/or caregiver understanding of neurologic condition and management, as evidenced by patient and/or caregiver ability to verbalize, demonstrate, teach back of instruction at a minimum of two strategies. To be achieved by 08/19/22. OT Neurologic Condition Completed Yes Interventions Intervention Associated Problem/Goal Status Variance Visit Notes SPO2 Description: Notify Dr. Astorga if pulse ox is <92% at rest. Problem:Physician Specific Parameters Goal:Patient to maintain parameters within physician-specified ranges throughout certification period Completed Define patient s appetite/hydration status and implement strategies to improve compliance with prescribed diet and/or healthy nutrition. Problem:Nutrition/Hydr ation Goal:Manage Nutrition/Hydration Completed instructed patient on implementing strategies to comply with prescribed diet and healthy nutrition Instruct on ongoing discharge plan Problem:Discharge Goal:Manage discharge planning Completed Ongoing Discharge plan: Discharge plan discussed with patient including frequency and duration for home OT and plan for transition to: live independently at home without ongoing services. Instruct and educate on knowledge deficits Problem:OT Learning Assessment Goal:Demonstrate understanding of education Completed Education methods include: verbal cues. Patient/Caregiver require further education to improve knowledge and compliance with fall prevention strategies. ADL/IADLs Training Problem:OT ADLs/IADLs Goal:Improved ADLs/IADLs performance Completed Instruct patient on compensatory strategies and no adaptive equipment use to facilite improved performance of lower body dressing with independence and verbal cues. Therapeutic Exercises Problem:OT Upper Body Strength and/or ROM Goal:Improved Strength and/or ROM Completed Instructed patient/caregiver on therapeutic exercise including: upper body exercises: shoulder flexion, shoulder horizontal abduction/adduction, shoulder internal/external rotation, triceps extension, bicep curls, forearm pronation/supination and wrist flexion/extension.Pro vided verbal cues for pacing and proper technique. Transfer Training Problem:OT Functional Transfers Goal:Improved Functional Transfers Completed Instruct patient on safe transfers and proper techniques including safe transfers Instruct on self-management of post surgical and/or non-surgical neurologic intervention Problem:OT Neurologic Condition Goal:Manage Neurologic Condition Completed Instruct patient on neurological condition of CVA including monitoring and reporting symptoms of impaired movement and instruct on neuromuscular re-education. [facility] Visit Details Visit Type -PT AGENCY [facility] Discipline -Physical Therapy Problems Problem Description Start Date Status Goals Interve ntions Medication Education Disciplines: Skilled Services 07/26/2022 Resolved on 08/29/2022 1 goal linked to scheduled/documen derick intervention 1 goal intervention scheduled/documen derick in this visit Physician Specific Parameters Disciplines: Skilled Services 07/26/2022 Resolved on 08/29/2022 1 goal linked to scheduled/documen derick intervention 1 goal intervention scheduled/documen derick in this visit Nutrition/Hydration Disciplines: Skilled Services 07/26/2022 Resolved on 08/29/2022 1 goal linked to scheduled/documen derick intervention Discharge Disciplines: Skilled Services 07/26/2022 Resolved on 08/29/2022 1 goal linked to scheduled/documen derick intervention PT Impaired muscle performance and/or ROM Disciplines: PT 07/28/2022 Resolved on 08/29/2022 1 goal linked to scheduled/documen derick intervention 1 goal intervention scheduled/documen derick in this visit PT Impaired gait Disciplines: PT 07/28/2022 Resolved on 08/29/2022 2 goals linked to scheduled/documen derick interventions 2 goal interventions scheduled/documen derick in this visit PT Impaired balance Disciplines: PT 07/28/2022 Resolved on 08/29/2022 1 goal linked to scheduled/documen derick intervention 1 goal intervention scheduled/documen derick in this visit PT Neurologic Condition Disciplines: PT 07/28/2022 Resolved on 08/29/2022 1 goal linked to scheduled/documen derick intervention 1 goal intervention scheduled/documen derick in this visit PT Learning Assessment Disciplines: PT 07/28/2022 Resolved on 08/29/2022 1 goal linked to scheduled/documen derick intervention 1 goal intervention scheduled/documen derick in this visit PT Cardiovascular Disease Disciplines: PT 07/28/2022 Resolved on 08/29/2022 1 goal linked to scheduled/documen derick intervention 1 goal intervention scheduled/documen derick in this visit Goals Goal Associated Problem Outcome Goal Met? Visit Notes Patient/caregiver will demonstrate ability to obtain, store, identify and administer ordered medications, keep accurate medication list in home, and adhere to medication schedule Description: Patient/caregiver will demonstrate ability to obtain, store, identify and administer ordered medications, keep accurate medication list in home, and adhere to medication schedule by 09/23/22. Medication Education Completed Yes Patient to maintain parameters within physician-specified ranges throughout certification period Physician Specific Parameters Completed Yes Manage Nutrition/Hydration Description: Patient/caregiver will verbalize/demonstrate knowledge of prescribed diet and/or healthy nutrition to be achieved by 09/23/22. Nutrition/Hydration Completed Yes Manage discharge planning Description: Patient/caregiver will verbalize understanding of ongoing discharge plan provided related to disease management, arrangements for outpatient and/or community services, obtaining medications, supplies, and DME, as needed throughout certification period. Discharge Completed Yes Improved Muscle Performance and/or ROM Description: LTG: Patient will demonstrate improved muscle performance to meet functional goals as evidenced by ability to tolerate 10 min of standing activity, to be achieved by 08/26/22. reassessment completed - new achieve by date of 09/05/22 . STG: Patient and/or caregiver will verbalize/demonstrate independence with home exercise program, to improve functional mobility, to be achieved by 08/12/22. reassessment completed - new achieve by date of 09/05/22 PT Impaired muscle performance and/or ROM Completed Yes Improved Stair Climbing Description: LTG: Patient will demonstrate improved stair negotiation as evidenced by ascend/descend 2 steps with railing independently, to safely access community and exit home, to be achieved by 08/26/22. . PT Impaired gait Completed Yes Improved Gait Description: STG: Patient will demonstrate improved gait ability as evidenced by ambulation 200 feet with front wheeled walker independently with AD, , to be achieved by 08/12/22. LTG: Patient will demonstrate improved gait ability as evidenced by ambulation 200 feet with LRD with supervision, to return to safe household and community ambulation, , to be achieved by 08/26/22. .reassessment completed - new achieve by date of 09/05/22 PT Impaired gait Completed Yes Improved Balance Description: LTG: Patient will demonstrate improved standing balance to meet functional goals as evidenced by TUG score of <25 to be achieved by 08/26/22. reassessment completed - new achieve by date of 09/05/22 PT Impaired balance Completed Yes Manage Neurologic Condition Description: Improve patient and/or caregiver understanding of post surgical and/or non-surgical neurologic intervention management as evidenced by patient and/or caregiver able to verbalize, demonstrate, and teach back instruction, to be achieved by 09/23/22. PT Neurologic Condition Completed Yes Demonstrate understanding of education Description: Patient and/or caregiver will understand educational instruction to be achieved by 09/23/22. PT Learning Assessment Completed Yes Manage Primary Cardiovascular Disease Description: Improve patient and/or caregiver understanding of primary cardiovascular disease management as evidenced by patient and/or caregiver able to verbalize, demonstrate, and teach back instruction, to be achieved by 09/23/22. PT Cardiovascular Disease Completed Yes Interventions Intervention Associated Problem/Goal Status Variance Visit Notes Medication Education Description: Evaluate/instruct patient/caregiver on obtaining, storing, identifying and administering ordered medications as well as keeping accurate medication list in the home and adhereing to medication schedule Problem:Medication Education Goal:Patient/caregiver will demonstrate ability to obtain, store, identify and administer ordered medications, keep accurate medication list in home, and adhere to medication schedule Completed Patient instructed on importance of keeping accurate medication list in home and adhering to medication schedule. SPO2 Description: Notify Dr. Astorga if pulse ox is <92% at rest. Problem:Physician Specific Parameters Goal:Patient to maintain parameters within physician-specified ranges throughout certification period Completed Physical Therapy Therapeutic Exercises Problem:PT Impaired muscle performance and/or ROM Goal:Improved Muscle Performance and/or ROM Completed patient instructed on strengthening exercises including sink ex x 10 reps: hip flx/ext/abd, toe raises, mini squats, hamstring curls with verbal cues for upright posture, slow speed. patient instructed to perform home exercise program twice a day which included listed Physical Therapy Stair Training Problem:PT Impaired gait Goal:Improved Stair Climbing Completed Stair training and instruction to patient on safe stair climbing, ascend/descend 4 steps, with railing with supervision and assist to move her cane . Physical Therapy Gait Training Problem:PT Impaired gait Goal:Improved Gait Completed Gait training and instruction to patient on safe ambulation with quad cane for 100 feet with independent, Physical Therapy Balance Training Problem:PT Impaired balance Goal:Improved Balance Completed pt demonstrates improved dynamic standing balacne as evidenced by a tug of 16 with [facility] Instruct on self-management of post surgical and/or non-surgical neurologic intervention Problem:PT Neurologic Condition Goal:Manage Neurologic Condition Completed patient instructed on instructed on when to call [facility] (balance, eyes, face, arms, speech, time) and instructed on when to call provider. Instruct and educate on knowledge deficits Problem:PT Learning Assessment Goal:Demonstrate understanding of education Completed patient verbalize and/or demonstrate understanding of physical therapy education including fall prevention strategies, home safety, functional activity and home exercise program. Education methods include: verbal cues. Instruct on signs, symptoms, and management of primary cardiovascular disease Problem:PT Cardiovascular Disease Goal:Manage Primary Cardiovascular Disease Completed Instructed patient on use of RPE and instructed on when to call provider. documented in this encounter [facility] Reason for Referral: 71 year old female admitted with acute intracerebral hemorrhage and left hemiparesis. Pt referred to PT for mobility and gait evaluation and training as indicated. 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 RX HERE Reason for Visit Prediabetes Cerebrovascular accident (CVA) of right basal ganglia Post-nasal drip Establishing care with new doctor, encounter for Moderate persistent asthma in adult without complication Essential hypertension Anxiety and depression Chief Complaint discuss medication LEFT SHOULDER Rm 3 Discuss MRI NEW PT - BRAIN MASS OTHER 1WK REVIEW LABS/PET (IF COMPLETED ON 11/28) 3 M FU POST MIGUEL A Reason for Visit Prediabetes Multiple thyroid nodules Cerebrovascular accident (CVA) of right basal ganglia Moderate persistent asthma in adult without complication Essential hypertension Anxiety and depression Left shoulder pain Adhesive capsulitis of left shoulder Left shoulder pain Brain mass Brain 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 Prediabetes Multiple thyroid nodules Cerebrovascular accident (CVA) of right basal ganglia Moderate persistent asthma in adult without complication Osteopenia Essential hypertension Brain mass Anxiety and depression Left shoulder pain Chief Complaint discuss medication LEFT SHOULDER Rm 3 Discuss MRI NEW PT - BRAIN MASS OTHER 1WK REVIEW LABS/PET (IF COMPLETED ON 11/28) 3 M FU POST MIGUEL A MEDICAL CLEARANCE Reason for Visit Prediabetes Multiple thyroid nodules Cerebrovascular accident (CVA) of right basal ganglia Moderate persistent asthma in adult without complication Essential hypertension Anxiety and depression Left shoulder pain Adhesive capsulitis of left shoulder Left shoulder pain Brain mass Brain 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 Prediabetes Multiple thyroid nodules Cerebrovascular accident (CVA) of right basal ganglia Moderate persistent asthma in adult without complication Osteopenia Essential hypertension Brain mass Anxiety and depression Left shoulder pain Prediabetes Eyelid abnormality Cerebrovascular accident (CVA) of right basal ganglia Moderate persistent asthma in adult without complication Osteopenia Preoperative examination Essential hypertension Brain mass Anxiety and depression Chief Complaint 6 M FU headache x2 weeks, coughing Reason for Visit Prediabetes Multiple thyroid nodules Cerebrovascular accident (CVA) of right basal ganglia Immunization due Moderate persistent asthma in adult without complication Recurrent UTI Osteopenia Essential hypertension Anxiety and depression Constipation by delayed colonic transit Acute URI Chief Complaint 6 M FU headache x2 weeks, coughing ACUTE CELLULITIS ON FACE? UPPER RESPIRATORY 1 WEEK FOLLOW UP Reason for Visit Prediabetes Multiple thyroid nodules Cerebrovascular accident (CVA) of right basal ganglia Immunization due Moderate persistent asthma in adult without complication Recurrent UTI Osteopenia Essential hypertension Anxiety and depression Constipation by delayed colonic transit Acute URI Herpes simplex Erysipelas Erysipelas Chief Complaint Admit [facility] February 09, 2025 2:28pm Chief Complaint Admit Date [facility] IN[facility] LAR[facility] COL[facility] February 09, 2025 2:28pm 6 M FU February 18, 2025 9:58a m Reason for Visit Admit Date Bleeding per rectum February 09, 2025 2:28 pm GERD (gastroesophageal reflux disease) [facility] 2024 2:28pm Multiple thyroid nodules February 18, 2025 9:58am Murmur, cardiac February 18, 2025 9:58a m Cerebrovascular accident (CVA) of right basal ganglia February 18, 2025 9:58am Vitamin deficiency February 18, 2025 9:58a m Moderate persistent asthma in adult with out complication February 18, 2025 9:58am Osteopenia February 18, 2025 9:58a m Essential hypertension February 18, 2025 9: 58am Prediabetes February 18, 2025 9:58a m Anxiety and depression February 18, 2025 9: 58am Family History No Family History Records Found Relationship Condition Age at Onset Recorded Date/T joy father Cardiac disease Unknown mother Malignant neoplasm Unknown grandmother Cerebrovascular accident (CVA) Unknown grandfather Myocardial infarction Unknown brother Hypertension Unknown sister Hypertension Unknown Malignant neoplasm of breast Unknown Relationship Condition Age at Onset Recorded Date/T joy father Cardiac disease Unknown mother Malignant neoplasm Unknown grandmother Cerebrovascular accident (CVA) Unknown grandfather Uremic acidosis Unknown brother Hypertension Unknown Diabetes mellitus Unknown sister Hypertension Unknown Malignant neoplasm of breast Unknown Advance Directives No Advanced Directives Records Found Advance Directive Response Recorded Date/ Time Living Will No June 27 11:12am Power of Cargo Router No June 27, 2017 11:12am Latest Code Status on File Code Status Date Activated Date Inactivated Comments Full Code 07/26/2022 3:10 PM Latest Code Status on File Code Status Date Activated Date Inactivated Comments Full Code 07/26/2022 3:10 PM Advance Directive Response Recorded Date/ Time Living Will No June 27 10:12am Power of Cargo Router No June 27, 2017 10:12am Advance Directive Response Recorded Date/ Time Living Will No November 03, 2022 12:12pm Power of Cargo Router No November 03 12:12pm Advance Directive Response Recorded Date/ Time Living Will No November 03, 2022 11:12am Power of Cargo Router No November 03 11:12am Advance Directive Response Recorded Date/ Time Living Will No October 31, 2023 8:15am Power of Cargo Router No October 30 8:15am Summary Purpose Additional Source Comments Goals (unrecognized section and content) Goals may be documented in a n alternate sectionGoals may be documented in an alternate sectionGoals may be documented in an alternate sectionGoals may be documented in an alternate sectionGoals may be documented in an alternate sectionGoals may be documented in an alternate sectionGoals may be documented in an alternate sectionGoals may be documented in an alternate section INFORMATION SOURCE (unrecogn ized section and content) DATE CREATED AUTHOR 07/07/2022 [facility] DATE CREATED AUTHOR AUTHOR'S ORGANIZ ATION 07/13/2022 [facility] DATE CREATED AUTHOR AUTHOR'S ORGANIZ ATION 07/26/2022 [facility] DATE CREATED AUTHOR AUTHOR'S ORGANIZ ATION 08/31/2022 [facility] DATE CREATED AUTHOR AUTHOR'S ORGANIZ ATION 12/02/2022 [facility] DATE CREATED AUTHOR AUTHOR'S ORGANIZ ATION 12/08/2022 [facility] DATE CREATED AUTHOR AUTHOR'S ORGANIZ ATION 01/30/2023 [facility] DATE CREATED AUTHOR AUTHOR'S ORGANIZ ATION 02/04/2025 [facility] DATE CREATED AUTHOR AUTHOR'S ORGANIZ ATION 02/15/2025 [facility] DATE CREATED AUTHOR AUTHOR'S ORGANIZ ATION 02/20/2025 [facility] DATE CREATED AUTHOR AUTHOR'S ORGANIZ ATION 02/20/2025 [facility] <item> Privacy Markings (unrecogniz ed section and content) Section Author: Sana William PROHIBITION ON REDISCLOSURE OF CONFIDENTIAL INFORMATION This notice accompanies a disclosure of information concerning a client made to you with the consent of such client. Source Comments (unrecognize d section and content) In the event this informatio n is protected by the Federal Confidentiality of Alcohol and Drug Abuse Patient Records regulations: The Federal rules restrict any use of the information to criminally investigate or prosecute any alcohol or drug abuse patient.[facility] Center[facility] the event this information is protected by the Federal Confidentiality of Alcohol and Drug Abuse Patient Records regulations: The Federal rules restrict any use of the information to criminally investigate or prosecute any alcohol or drug abuse patient.[facility] CenterIn the event this information is protected by the Federal Confidentiality of Alcohol and Drug Abuse Patient Records regulations: The Federal rules restrict any use of the information to criminally investigate or prosecute any alcohol or drug abuse patient.[facility] CenterIn the event this information is protected by the Federal Confidentiality of Alcohol and Drug Abuse Patient Records regulations: The Federal rules restrict any use of the information to criminally investigate or prosecute any alcohol or drug abuse patient.[facility] CenterIn the event this information is protected by the Federal Confidentiality of Alcohol and Drug Abuse Patient Records regulations: The Federal rules restrict any use of the information to criminally investigate or prosecute any alcohol or drug abuse patient.[facility] CenterIn the event this information is protected by the Federal Confidentiality of Alcohol and Drug Abuse Patient Records regulations: The Federal rules restrict any use of the information to criminally investigate or prosecute any alcohol or drug abuse patient.[facility] CenterIn the event this information is protected by the Federal Confidentiality of Alcohol and Drug Abuse Patient Records regulations: The Federal rules restrict any use of the information to criminally investigate or prosecute any alcohol or drug abuse patient.[facility] CenterIn the event this information is protected by the Federal Confidentiality of Alcohol and Drug Abuse Patient Records regulations: The Federal rules restrict any use of the information to criminally investigate or prosecute any alcohol or drug abuse patient.[facility] CenterIn the event this information is protected by the Federal Confidentiality of Alcohol and Drug Abuse Patient Records regulations: The Federal rules restrict any use of the information to criminally investigate or prosecute any alcohol or drug abuse patient.[facility] CenterIn the event this information is protected by the Federal Confidentiality of Alcohol and Drug Abuse Patient Records regulations: The Federal rules restrict any use of the information to criminally investigate or prosecute any alcohol or drug abuse patient.[facility] CenterIn the event this information is protected by the Federal Confidentiality of Alcohol and Drug Abuse Patient Records regulations: The Federal rules restrict any use of the information to criminally investigate or prosecute any alcohol or drug abuse patient.[facility] CenterIn the event this information is protected by the Federal Confidentiality of Alcohol and Drug Abuse Patient Records regulations: The Federal rules restrict any use of the information to criminally investigate or prosecute any alcohol or drug abuse patient.[facility] CenterIn the event this information is protected by the Federal Confidentiality of Alcohol and Drug Abuse Patient Records regulations: The Federal rules restrict any use of the information to criminally investigate or prosecute any alcohol or drug abuse patient.[facility] CenterIn the event this information is protected by the Federal Confidentiality of Alcohol and Drug Abuse Patient Records regulations: The Federal rules restrict any use of the information to criminally investigate or prosecute any alcohol or drug abuse patient.[facility] CenterIn the event this information is protected by the Federal Confidentiality of Alcohol and Drug Abuse Patient Records regulations: The Federal rules restrict any use of the information to criminally investigate or prosecute any alcohol or drug abuse patient.[facility] CenterIn the event this information is protected by the Federal Confidentiality of Alcohol and Drug Abuse Patient Records regulations: The Federal rules restrict any use of the information to criminally investigate or prosecute any alcohol or drug abuse patient.[facility] CenterIn the event this information is protected by the Federal Confidentiality of Alcohol and Drug Abuse Patient Records regulations: The Federal rules restrict any use of the information to criminally investigate or prosecute any alcohol or drug abuse patient.[facility] CenterIn the event this information is protected by the Federal Confidentiality of Alcohol and Drug Abuse Patient Records regulations: The Federal rules restrict any use of the information to criminally investigate or prosecute any alcohol or drug abuse patient.[facility] CenterIn the event this information is protected by the Federal Confidentiality of Alcohol and Drug Abuse Patient Records regulations: The Federal rules restrict any use of the information to criminally investigate or prosecute any alcohol or drug abuse patient.[facility] CenterIn the event this information is protected by the Federal Confidentiality of Alcohol and Drug Abuse Patient Records regulations: The Federal rules restrict any use of the information to criminally investigate or prosecute any alcohol or drug abuse patient.[facility] CenterIn the event this information is protected by the Federal Confidentiality of Alcohol and Drug Abuse Patient Records regulations: The Federal rules restrict any use of the information to criminally investigate or prosecute any alcohol or drug abuse patient.[facility] CenterIn the event this information is protected by the Federal Confidentiality of Alcohol and Drug Abuse Patient Records regulations: The Federal rules restrict any use of the information to criminally investigate or prosecute any alcohol or drug abuse patient.[facility] CenterIn the event this information is protected by the Federal Confidentiality of Alcohol and Drug Abuse Patient Records regulations: The Federal rules restrict any use of the information to criminally investigate or prosecute any alcohol or drug abuse patient.[facility] Reason for Visit (unrecogniz ed section and content) Reason Comments Home Care Confirmation call Specialty Diagnoses / Procedures Referred By Contac t Referred To Contact Diagnoses [R53.81] - Other mal[facility] [address] [place] [address] Referral ID Status Reason Start Date Expiration Date V isits Requested Visits Authorized [id number] New Request 07/17/2022 09/15/2022 Reason Comments Erroneous encounter-disregard Specialty Diagnoses / Procedures Referred By Contac t Referred To Contact HOME CARE [facility] Home Care [address] [place] [address] Referral ID Status Reason Start Date Expiration Date Visits Re quested Visits Authorized [id number] 1 1 Reason Comments Abdominal Pain Black or Bloody Stool Pt states she has had approximately 10 episodes of bloody stool with diffuse mild abdominal pain, a low grade fever at home. Specialty Diagnoses / Procedures Referred By Contac t Referred To Contact Diagnoses Colitis Abdominal pain Procedures Ariana Barrow MD [address] [place] [address] Phone: tel: fax: [facility] [address] [place] [address] Phone: tel: Referral ID Status Reason Start Date Expiration Date Visits Re quested Visits Authorized [id number] 1 1 Care Teams (unrecognized sec tion and content) Crimper Operator Relationship Specialty Start Date End Date Kaleb Astorga MD PCP - General Family Medicine 04/02/17 Geoff Pena MD [address] [place] [address] Referring Physical Medicine and Rehab 07/18/22 Kaleb Astorga MD [address] [place], [place] [id number] Home Care Provider Family Medicine 07/21/22 Crimper Operator Relationship Specialty Start Date End Date Kaleb Astorga MD PCP - General Family Medicine 04/02/17 Geoff Pena MD [address] [place] [address] Referring Physical Medicine and Rehab 07/18/22 Kaleb Astorga MD [address] [place], [place] [id number] Home Care Provider Family Medicine 07/21/22 Reg Castaneda, SISSY [address] [place] [address] Manager Talent Post Acute Care 07/25/22 Crimper Operator Relationship Specialty Start Date End Date Kaleb Astorga MD PCP - General Family Medicine 04/02/17 Geoff Pena MD [address] [place] [address] Referring Physical Medicine and Rehab 07/18/22 Kaleb Astorga MD [address] [place], [place] [id number] Home Care Provider Family Medicine 07/21/22 Reg Castaneda, SISSY [address] [place] [address] Manager Talent Post Acute Care 07/25/22 Crimper Operator Relationship Specialty Start Date End Date Kaleb Astorga MD PCP - General Family Medicine 04/02/17 Geoff Pena MD [address] [place] [id number] Referring Physical Medicine and Rehab 07/18/22 Kaleb Astorga MD [address] [place], [place] [id number] Home Care Provider Family Medicine 07/21/22 Reg Castaneda RN [address] [place] [address] Manager Talent Post Acute Care 07/25/22 Crimper Operator Relationship Specialty Start Date End Date Kaleb Astorga MD PCP - General Family Medicine 04/02/17 Geoff Pena MD [address] [place] [address] Referring Physical Medicine and Rehab 07/18/22 Kaleb Astorga MD [address] [place] [address] Home Care Provider Family Medicine 07/21/22 Reg Castaneda RN [address] [place] [address] Manager Talent Post Acute Care 07/25/22 Crimper Operator Relationship Specialty Start Date End Date Kaleb Astorga MD PCP - General Family Medicine 04/02/17 Geoff Pena MD [address] [place] [address] Referring Physical Medicine and Rehab 07/18/22 Kaleb Astorga MD [address] [place], [place] [id number] Home Care Provider Family Medicine 07/21/22 Reg Castaneda, SISSY [address] [place], [place] [id number] Manager Talent Post Acute Care 07/25/22 Crimper Operator Relationship Specialty Start Date End Date Kaleb Astorga MD PCP - General Family Medicine 04/02/17 Geoff Pena MD [address] [place] [address] Referring Physical Medicine and Rehab 07/18/22 Kaleb Astorga MD [address] [place], [place] [id number] Home Care Provider Family Medicine 07/21/22 Reg Castaneda, SISSY [address] [place] [address] Manager Talent Post Acute Care 07/25/22 Crimper Operator Relationship Specialty Start Date End Date Kaleb Astorga MD PCP - General Family Medicine 04/02/17 Geoff Pena MD [address] [place] [address] Referring Physical Medicine and Rehab 07/18/22 Kaleb Astorga MD [address] [place], [place] [phone] Home Care Provider Family Medicine 07/21/22 Reg Castaneda, SISSY [address] [place], [place] [id number] Manager Talent Post Acute Care 07/25/22 Crimper Operator Relationship Specialty Start Date End Date Kaleb Astorga MD PCP - General Family Medicine 04/02/17 Geoff Pena MD [address] [place] [address] Referring Physical Medicine and Rehab 07/18/22 Kaleb Astorga MD [address] [place] [address] Home Care Provider Family Medicine 07/21/22 Reg Castaneda RN [address] [place], [place] [id number] Manager Talent Post Acute Care 07/25/22 Crimper Operator Relationship Specialty Start Date End Date Kaleb Astorga MD PCP - General Family Medicine 04/02/17 Geoff Pena MD [address] [place] [address] Referring Physical Medicine and Rehab 07/18/22 Kaleb Astorga MD [address] [place] [address] Home Care Provider Family Medicine 07/21/22 Crimper Operator Relationship Specialty Start Date End Date Kaleb Astorga MD PCP - General Family Medicine 04/02/17 Geoff Pena MD [address] [place] [address] Referring Physical Medicine and Rehab 07/18/22 Kaleb Astorga MD [address] [place] [address] Home Care Provider Family Medicine 07/21/22 Crimper Operator Relationship Specialty Start Date End Date Kaleb Astorga MD PCP - General Family Medicine 04/02/17 Geoff Pena MD [address] [place], [place] [phone] Referring Physical Medicine and Rehab 07/18/22 Kaleb Astorga MD [address] [place], [place] [id number] Home Care Provider Family Medicine 07/21/22 Crimper Operator Relationship Specialty Start Date End Date Kaleb Astorga MD PCP - General Family Medicine 04/02/17 Geoff Pena MD [address] [place] [address] Referring Physical Medicine and Rehab 07/18/22 Kaleb Astorga MD [address] [place] [address] Home Care Provider Family Medicine 07/21/22 Team Status: Active Member Role Status Dates Dr. Kaleb Astorga MD Family Provider Active Dr. Torres Bravo MD Primary Care Provider Active Team Status: Inactive Member Role Status Dates Dr. Kaleb Astorga MD Primary Care Provider, Referring Provider Active Dr. Torres Bravo MD Attending Provider Active Team Status: Active Member Role Status Dates Dr. Kaleb Astorga MD Primary Care Provi darinel, Attending Provider, Referring Provider Active ESTEFANIA RUSS Active Team Status: Inactive Member Role Status Dates Dr. Torres Bravo MD Primary Care Pro vider, Attending Provider, Referring Provider Active Team Status: Inactive Member Role Status Dates Dr. Torres Bravo MD Primary Care Provider, Attendi ng Provider Active Team Status: Inactive Member Role Status Dates Dr. Torres Bravo MD Primary Care Provider, Referri ng Provider Active Kaelb Sahu MD Attending Provider Active Team Status: Inactive Member Role Status Dates Dr. Torres Bravo MD Primary Care Provider Active Dr. Anmol Banda MD Attending Provider Active Team Status: Inactive Member Role Status Dates Dr. Torres Bravo MD Primary Care Provider, Referri ng Provider Active Dr. Arina Acuña MD Attending Provider Active Team Status: Active Member Role Status Dates Dr. Torres Bravo MD Primary Care Provider Active Dr. Arina Acuña MD Attending Provider, Referrin g Provider Active Team Status: Inactive Member Role Status Dates Dr. Torres Bravo MD Primary Care Provider Active Dr. Carola Mckeon MD Attending Provider Active Team Status: Inactive Member Role Status Dates Dr. Torres Bravo MD Primary Care Provider, Referri ng Provider Active PERFECTO Kaiser Attending Provider Active Team Status: Inactive Member Role Status Dates Dr. Torres Bravo MD Primary Care Provider Active Abdon GROVE PA Attending Provider, Referring Prov ider Active Crimper Operator Relationship Specialty Start Date End Date Milad Monae DO [address] [place] [phone] PCP - Aetarnol Medicare Advantage PCP 08/20/22 Crimper Operator Relationship Specialty Start Date End Date Torres Bravo MD [address] [place] [phone] PCP - General Internal Medicine 01/29/25 Team Status: Inactive Member Role Status Dates Dr. Torres Bravo MD Primary Care Provider Active Start: February 09, 2025 End: February 09, 2025 Dr. Torres Bravo MD Referring Provider Active Start: February 09, 2025 End: February 09, 2025 TONY Alvarado Attending Provider Active S tart: February 09, 2025 End: February 09, 2025 Team Status: Active Member Role/Relationship Status Dates Dr. Torres Bravo MD Primary Care Provider Active Team Status: Inactive Member Role/Relationship Status Dates Dr. Torres Bravo MD Primary Care Provider Active Start: February 09, 2025 End: February 09, 2025 Dr. Torres Bravo MD Referring Provider Active Start: February 09, 2025 End: February 09, 2025 TONY Alvarado Attending Provider Active S tart: February 09, 2025 End: February 09, 2025 Team Status: Inactive Member Role/Relationship Status Dates Dr. Torres Bravo MD Primary Care Provider Active Start: February 18, 2025 End: February 18, 2025 Dr. Torres Bravo MD Attending Provider Active Start: February 18, 2025 End: February 18, 2025 Dr. Torres Bravo MD Referring Provider Active Start: February 18, 2025 End: February 18, 2025 Crimper Operator Relationship Specialty Start Date End Date Torres Bravo MD [address] [place] [phone] PCP - General Internal Medicine 01/29/25 Scheduled Active and Recently Administ ered Medications (unrecognized section and content) Medication Order 01/29/2025 01/30/2025 01/31/2025 budesonide (Pulmicort) 0.25 mg/2 mL nebulizer solution 0.25 mg 0.25 mg, nebulization, Daily RT, First dose on Sun01/30/25 at 0800, Rinse mouth with water after use to reduce aftertaste and incidence of candidiasis. Do not swallow. 0627 (Not Given - Provider: Katya Espinosa, WIRELESS ARCHITECT - Reason: Patient/family refused)1808 (Not Given - Provider: Keya Velez WIRELESS ARCHITECT - Reason: Patient/family refused - Comment: pt refused) 0610 (Not Given - Provider: Stephanie Juares, WIRELESS ARCHITECT - Reason: Patient/family refused) carvedilol (Coreg) tablet 6.25 mg 6.25 mg, oral, 2 times daily (morning and late afternoon), First dose on Sun01/30/25 at 0045 0045 (Given - Provider: Jodi Canales RN)0802 (Given - Provider: Ronda Paredes RN)1747 (Given - Provider: Ronda Paredes RN) 1005 (Given - Provider: Bell Dexter, SISSY)1700 (Due - Provider: Bianca García, PharmD) cetirizine (ZyrTEC) tablet 10 mg 10 mg, oral, Daily, First dose on Sun01/30/25 at 0900 0802 (Given - Provider: Ronda Paredes RN) 1006 (Given - Provider: Bell Dexter RN) cholecalciferol (Vitamin D-3) tablet 125 mcg 125 mcg, oral, Every morning, First dose on Sun01/30/25 at 0900 0801 (Given - Provider: Ronda Paredes RN) 1005 (Given - Provider: Bell Dexter RN) ciprofloxacin (Cipro) 400 mg in dextrose 5% IV 200 mL (COMPLETED) 400 mg, intravenous, at 200 mL/hr, Administer over 60 Minutes, Once, On Marcela 01/29/25 at 2225, For 1 dose, premix bag, Dosing of this medication varies based on severity of illness. Does this patient have sepsis or concern for sepsis (probable or documented infection plus systemic manifestations of infection)? No, Suspected Indication (Select all that apply): Abdominal Infection, Type of Therapy: Empiric, Type of infection: Community-Acquired, Indications: Abdominal Infection 2236 (New Bag - Provider: Edmundo Seo RN) 003 (Stopped - Provider: Jodi Canales RN) formoterol (Perforomist) 20 mcg/2 mL nebulizer solution 20 mcg 20 mcg, nebulization, 2 times daily RT, First dose on Sun01/30/25 at 0030 0043 (Not Given - Provider: Keya Velez, WIRELESS ARCHITECT - Reason: Patient/family refused)0627 (Not Given - Provider: Katya Espinosa, WIRELESS ARCHITECT - Reason: Patient/family refused)2103 (Not Given - Provider: Keya Velez, WIRELESS ARCHITECT - Reason: Patient/family refused) 06 (Not Given - Provider: Stephanie Juares, WIRELESS ARCHITECT - Reason: Patient/family refused)1999 (Due) iohexol (OMNIPaque) 350 mg iodine/mL solution 69 mL (COMPLETED) 69 mL, intravenous, Once in imaging, Starting on Marcela 01/29/25 at 2156, For 1 dose 2156 (Given - Provider: Matilde Moreno) ketotifen (Zaditor) 0.025 % (0.035 %) ophthalmic solution 1 drop (CANCELED) 1 drop, Both Eyes, 2 times daily, First dose on Sun01/30/25 at 0030 0032 (Not Given - Provider: Jodi Canales RN - Reason: Medication not available)0815 (Given - Provider: Ronda Paredes, SISSY)2016 (Given - Provider: Jodi Canales, SISSY) lisinopril tablet 40 mg 40 mg, oral, Daily, First dose on Sun01/30/25 at 0900 0804 (Given - Provider: Ronda Paredes RN) 1006 (Given - Provider: Bell Dexter, SISSY) metroNIDAZOLE (Flagyl) 500 mg in sodium chloride (iso) IV 100 mL (CANCELED) 500 mg, intravenous, Administer over 60 Minutes, Once, On Marcela 01/29/25 at 2230, For 1 dose, Do NOT give with alcohol or drug products with significant alcohol content., Suspected Indication (Select all that apply): Abdominal Infection, Type of Therapy: Empiric, Type of infection: Community-Acquired, Indications: Abdominal Infection 0009 (New Bag - Provider: Jodi Canales RN)0109 (Stopped - Provider: Jodi Canales RN)0110 (Stopped - Provider: Jodi Canales, SISSY) pantoprazole (ProtoNix) EC tablet 40 mg 40 mg, oral, Daily before breakfast, First dose on Sun01/30/25 at 0700, Do not crush, chew, or split. 0802 (Given - Provider: Ronda Paredes RN) 1005 (Given - Provider: Bell Dexter, SISSY) piperacillin-tazobactam (Zosyn) 4.5 g in dextrose (iso) IV 100 mL 4.5 g, intravenous, Administer over 0.5 Hours, Every 6 hours, First dose on Sun01/30/25 at 0100, premix bag, Dosing of this medication varies based on severity of illness. Does this patient have sepsis or concern for sepsis (probable or documented infection plus systemic manifestations of infection)? Yes, Suspected Indication (Select all that apply): Abdominal Infection, Type of Therapy: Empiric, Type of infection: Community-Acquired, Indications: Abdominal Infection 0250 (New Bag - Provider: Jodi Canales RN)0325 (Stopped - Provider: Jodi Canales RN)0814 (New Bag - Provider: Ronda Paredes RN)0907 (Stopped - Provider: Ronda Paredes RN)1549 (New Bag - Provider: Ronda Paredes RN)1722 (Stopped - Provider: Ronda Paredes RN)2017 (New Bag - Provider: Jodi Canales RN)2050 (Stopped - Provider: Jodi Canales RN) 0214 (New Bag - Provider: Jodi Canales RN)0244 (Stopped - Provider: Jodi Canales RN)1007 (New Bag - Provider: Bell Dexter RN)1125 (Stopped - Provider: Bell Dexter RN)1500 (Due - Provider: Bianca García, PharmD)2100 (Due - Provider: Bianca García, PharmD) pravastatin (Pravachol) tablet 20 mg 20 mg, oral, Nightly, First dose on Sun01/30/25 at 0030 0032 (Not Given - Provider: Jodi Canales RN - Reason: Other - Comment: to start tomorrow)2016 (Given - Provider: Jodi Canales RN) 2100 (Due) sodium chloride 0.9 % bolus 1,000 mL (COMPLETED) 1,000 mL, intravenous, at 999 mL/hr, Administer over 1 Hours, Once, On Marcela 01/29/25 at 2045, For 1 dose 210 (New Bag - Provider: Edmundo Seo RN)2234 (Stopped - Provider: Edmundo Seo RN) vancomycin (Vancocin) 0.75 g in dextrose 5% 250 mL IV (CANCELED) 0.75 g (750 mg), intravenous, at 353.3 mL/hr, Administer over 45 Minutes, Every 12 hours, First dose on Sun01/30/25 at 1330, Dosing of this medication varies based on severity of illness. Does this patient have sepsis or concern for sepsis (probable or documented infection plus systemic manifestations of infection)? Yes, Suspected Indication (Select all that apply): Abdominal Infection, Type of Therapy: Empiric, Type of infection: Community-Acquired, Indications: Abdominal Infection 1257 (Given - Provider: Ronda Paredes RN) vancomycin (Vancocin) 0.75 g in sodium chloride 0.9% 250 mL IV 0.75 g (750 mg), intravenous, at 353.3 mL/hr, Administer over 45 Minutes, Every 12 hours, First dose on Sun01/31/25 at 0100, Dosing of this medication varies based on severity of illness. Does this patient have sepsis or concern for sepsis (probable or documented infection plus systemic manifestations of infection)? No, Suspected Indication (Select all that apply): Abdominal Infection, Type of Therapy: Empiric, Type of infection: Community-Acquired, Indications: Abdominal Infection 0020 (Given - Provider: Jodi Canales RN)1327 (Not Given - Provider: Bell Dexter RN - Reason: Other - Comment: patient discharged) vancomycin (Xellia) 1,250 mg in diluent combination IV 250 mL 1,250 mg, intravenous, at 200 mL/hr, Administer over 75 Minutes, Once, On Sun01/30/25 at 0130, For 1 dose, Premix bag. Contains preservatives - Do not use in ., Dosing of this medication varies based on severity of illness. Does this patient have sepsis or concern for sepsis (probable or documented infection plus systemic manifestations of infection)? Yes, Suspected Indication (Select all that apply): Abdominal Infection, Type of Therapy: Empiric, Type of infection: Community-Acquired, Indications: Abdominal Infection 0221 (Not Given - Provider: Jodi Canales RN - Reason: Other - Comment: Duplicate order, see other order) venlafaxine XR (Effexor-XR) 24 hr capsule 37.5 mg 37.5 mg, oral, Daily, First dose on Sun01/30/25 at 2100, Take in combination with 75 mg capsule for total dose of 112.5 mg Capsule may be swallowed whole, or may be opened and its contents sprinkled on applesauce if consumed immediately without chewing. Do not crush or chew. 2016 (Given - Provider: Jodi Canales RN) 2100 (Due - Provider: Tye Romero PharmD) venlafaxine XR (Effexor-XR) 24 hr capsule 75 mg 75 mg, oral, Daily, First dose on Sun01/30/25 at 0900, Take in combination with 37.5 mg capsules for total dose of 112.5 mg Capsule may be swallowed whole, or may be opened and its contents sprinkled on applesauce if consumed immediately without chewing. Do not crush or chew. 0802 (Given - Provider: Ronda Paredes RN) 1006 (Given - Provider: Bell Dexter RN) Continuous Medication Order 01/29/2025 01/30/2025 01/31/2025 sodium chloride 0.9% infusion 100 mL/hr, intravenous, Continuous, Starting on Sun01/29/25 at 2315, For 1 day 0009 (New Bag - Provider: Jodi Canales RN)0100 (Rate/Dose Verify - Provider: Jodi Canales RN)0200 (Rate/Dose Verify - Provider: Joid Canales RN)0300 (Rate/Dose Verify - Provider: Jodi Canales RN)0400 (Rate/Dose Verify - Provider: Jodi Canales RN)0500 (Rate/Dose Verify - Provider: Jodi Canales RN)0600 (Rate/Dose Verify - Provider: Jodi Canales RN)0952 (Rate/Dose Verify - Provider: Ronda Paredes RN)1530 (New Bag - Provider: Ronda Paredes RN)1900 (Rate/Dose Verify - Provider: Jodi Canales RN)2000 (Rate/Dose Verify - Provider: Jodi Canales RN)2100 (Rate/Dose Verify - Provider: Jodi Canales RN)2200 (Rate/Dose Verify - Provider: Jodi Canales RN)2300 (Rate/Dose Verify - Provider: Jodi Canales RN) 0008 (Stopped - Provider: Jodi Canales RN - Comment: [Order ends at this time. Document the following action when infusion is complete: Stopped]) PRN Medication Order 01/29/2025 01/30/2025 01/31/2025 acetaminophen (Tylenol) tablet 650 mg 650 mg, oral, Every 4 hours PRN, pain mild (1-3), first line, Starting on Marcela 01/29/25 at 2310, Administer tablet or oral liquid per patient preference., If ordered PRN for pain, nurse is permitted to administer this medication for higher pain scores based on patient preference? Yes alum-mag hydroxide-simeth (Mylanta) 200-200-20 mg/5 mL oral suspension 20 mL 20 mL, oral, 4 times daily PRN, indigestion, heartburn, second line, Starting on Marcela 01/29/25 at 2310 benzocaine-menthol (Cepastat Sore Throat) lozenge 1 lozenge 1 lozenge, Mouth/Throat, Every 2 hour PRN, sore throat, Starting on Marcela 01/29/25 at 2310 benzonatate (Tessalon) capsule 100 mg 100 mg, oral, 3 times daily PRN, cough, Starting on Marcela 01/29/25 at 2310, Do not crush or chew. bisacodyl (Dulcolax) suppository 10 mg 10 mg, rectal, Daily PRN, constipation, second line, Starting on Marcela 01/29/25 at 2310 calcium carbonate (Tums) 500 mg (200 mg elemental) chewable tablet 2 tablet 2 tablet, oral, 4 times daily PRN, heartburn, Starting on Sun01/30/25 at 0737 famotidine (Pepcid) tablet 20 mg 20 mg, oral, Daily PRN, indigestion, Starting on Sun01/30/25 at 0011 guaiFENesin (Mucinex) 12 hr tablet 600 mg 600 mg, oral, 2 times daily PRN, congestion, Starting on Marcela 01/29/25 at 2310, Administer with plenty of fluids to ensure proper action. Do not crush, chew, or split. hydrALAZINE (Apresoline) injection 10 mg 10 mg, intravenous, Every 4 hours PRN, SBP >180, DBP >100 (second line), Starting on Marcela 01/29/25 at 2310 0101 (Not Given - Provider: Jodi Canales RN - Reason: Other - Comment: Pts coreg given instead) hydrOXYzine HCL (Atarax) tablet 25 mg 25 mg, oral, Every 4 hours PRN, anxiety, itching, Starting on Marcela /12/25 at 2310 ipratropium-albuteroL (Duo-Neb) 0.5-2.5 mg/3 mL nebulizer solution 3 mL 3 mL, nebulization, 4 times daily PRN, wheezing, shortness of breath, Starting on Sun01/30/25 at 0042 0627 (Not Given - Provider: Katya Espinosa, WIRELESS ARCHITECT - Reason: Patient/family refused)1125 (Not Given - Provider: Nkechi Francois, WIRELESS ARCHITECT - Reason: Patient/family refused)1809 (Not Given - Provider: Keya Velez, WIRELESS ARCHITECT - Reason: Patient/family refused) 1108 (Not Given - Provider: Stephanie Juares, WIRELESS ARCHITECT - Reason: Patient/family refused) melatonin tablet 6 mg 6 mg, oral, Nightly PRN, sleep, Starting on Sun01/29/25 at 2310 metoprolol tartrate (Lopressor) injection 5 mg 5 mg, intravenous, Every 6 hours PRN, sbp >180, DBP >100, HR >120 (hold for HR <55), Starting on Sun01/29/25 at 2310 ondansetron (Zofran) injection 4 mg 4 mg, intravenous, Every 4 hours PRN, nausea/vomiting, first line, Starting on Sun01/29/25 at 2310, When administering via IV Push, administer over 3-5 minutes. polyethylene glycol (Glycolax, Miralax) packet 17 g 17 g, oral, Daily PRN, constipation, Starting on Sun01/29/25 at 2310 prochlorperazine (Compazine) injection 10 mg 10 mg, intravenous, Every 6 hours PRN, nausea/vomiting, second line, Starting on Sun01/29/25 at 2310, Give IV if patient is unable to take orally. traZODone (Desyrel) tablet 50 mg 50 mg, oral, Nightly PRN, sleep, second line, Starting on Sun01/29/25 at 2310 vancomycin (Vancocin) pharmacy to dose - pharmacy monitoring miscellaneous, Daily PRN, other, Vancomycin Placeholder, Starting on Sun01/30/25 at 0036, This is a placeholder. Pharmacy will enter orders when vancomycin needs to be administered. No Frequency Medication Order 01/29/2025 01/30/2025 01/31/2025 vancomycin (Vancocin) in dextrose 5% IV 1250 mg/250 mL - [employer] Override Pull (COMPLETED) Starting on Sun01/30/25 at 0131, For 1 dose, Created by cabinet override Vial-Bag System 0137 (New Bag - Provider: Jodi Canales RN) FOR RECORDS PERTAINING TO PATIENTS WHO ARE OR HAVE BEEN ENROLLED IN A CHEMICAL DEPENDENCY/SUBSTANCEABUSE PROGRAM, SOME INFORMATION MAY BE OMITTED. This clinical summary was aggregated from multiple sources. Caution should be exercised in using it in the provision of clinical care. This summary normalizes information from multiple sources, and as a consequence, information in this document may materially change the coding, format and clinical context of patient data. In addition, data may be omitted in some cases. CLINICAL DECISIONS SHOULD BE BASED ON THE PRIMARY CLINICAL RECORDS. [facility]. provides no warranty or guarantee of the accuracy or completeness of information in this document.
--- NOTE | 2025-02-26 14:42 | US_ITS ---
PROCEDURE: PELVIC (NON ) 02/26/2025 REASON FOR EXAM: PAIN/POSSIBLE CYST RIGHT OVARY ON CT TECHNIQUE: PELVIC (NON ) COMPARISON: None FINDINGS: Measurements: Uterus: 7.3 x 3.2 x 4.4 cm with a volume of 54.5 mL Endometrial Thickness: 2.3 mm Both ovaries are not visualized Urinary bladder measures 6.2 x 7.6 x 8.5 cm with a volume of 212.6 cc Uterus: Is anteverted with no obvious lesions Endometrium: Is hyperechoic and normal in thickness No free fluid in the posterior cul-de-sac Patient refused transvaginal ultrasound US/Pelvic (Non ) IMPRESSION: No obvious abnormalities Obscured ovaries Reading [facility]
[2025-02-26 16:00] LABS: Hematocrit 39.1 % (37-47); Hemoglobin 13.2 g/dL (12.0-15.0); Immature Granulocytes Count 0.020 X10^3/uL (0.0-0.0); Mean Corp Hgb Conc 33.8 g/dL (32-36); Mean Corpuscular Volume 92.4 fL (81-99); Mean Platelet Vol. 10.4 fl (6.2-12.0); NRBC Flagged by Analyzer 0 % (0-5); Platelet Count 267 K/mm3 (150-450); RBC Distribution Width CV 12.6 % (11.6-14.6); RBC Distribution Width SD 42.3 fl (35.1-43.9); Red Blood Count 4.23 M/mm3 (4.2-5.4); White Blood Count 7.4 K/mm3 (4.4-11.0)
[2025-02-26 16:55] LABS: AST(SGOT) 28 U/L (<=31); Alanine Aminotransfer ALT/SGPT 24 U/L (<=34); Albumin, Serum 4.4 g/dL (3.4-4.8); Alkaline Phosphatase 105 U/L (35-104); Anion Gap 12 (5-15); BUN 16 mg/dL (4-19); BUN/Creat Ratio 19.4 RATIO (10-20); Calcium,Total 10.0 mg/dL (7.6-11.0); Carbon Dioxide 23.1 mmol/L (21.0-32.0); Chloride 101 mmol/L (98-108); Cholesterol 154 mg/dL (<=200); Globulin 3.2 g/dL (2.2-4.2); Glucose 92 mg/dL (70-99); Low Density Lipoprotein Calc. 74 mg/dL; Potassium 4.4 mmol/L (3.3-5.1); Triglycerides 82 mg/dL; Very Low Density Lipoprotein 16 mg/dL (5-40); cholesterol:hdl ratio screen 2.44
[2025-02-26 16:56] LABS: Vitamin B12 285 pg/mL (180-914); Vitamin D,25 Hydroxy 50.3 ng/mL (30-100)
== END | disposition home or self-care (01) ==
PROVIDERS: PCP Internal Medicine; Referring Provider Nurse Practitioner Women's Health; Visit Provider Nurse Practitioner Women's Health
DX: R73.03 Prediabetes (principal); I63.81 Other cerebral infarction due to occlusion or stenosis of small artery; R10.2 Pelvic and perineal pain; E55.9 Vitamin D deficiency, unspecified
CPT/HCPCS: 36415; 76856; 80053; 80061; 82306; 82607; 83036; 85025

== ENCOUNTER → 2025-03-09 | Outpatient (CLI) | payer MEDICARE, SELFPAY ==
--- NOTE | 2025-03-09 14:00 | US_ITS ---
PROCEDURE: THYROID 03/09/2025 REASON FOR EXAM: NODULES TECHNIQUE: THYROID COMPARISON: Thyroid ultrasound 02/04/2024. FINDINGS: Right thyroid lobe size: 5.1 x 1.3 x 1.7 cm Left thyroid lobe size: 4.4 x 1.2 x 1.6 cm Isthmus: 0.4 cm Background parenchymal echotexture is heterogeneous Nodules: There are several tiny bilateral colloid cysts, which do not meet criteria for dedicated follow-up. US/Thyroid IMPRESSION: Normal thyroid ultrasound. Reading Location: [id number]
== END | disposition home or self-care (01) ==
LOC: US 13:57
PROVIDERS: PCP Internal Medicine; Referring Provider Internal Medicine; Visit Provider Internal Medicine
DX: E04.2 Nontoxic multinodular goiter (principal)
CPT/HCPCS: 76536